=== PATIENT | male | born 1960 | race Caucasian/White ===

== ENCOUNTER 2016-07-02 19:39 | Inpatient (IN) | payer BC ==
[~2016-07-02] VITALS: Ht 175.3 cm; Wt 106.6 kg
[~2016-07-02 19:39] MED LIST: ALBU1AER9 INH; BUPR150T7 PO; IPRASOL4 INH; MOME200A INH; NICO4GUM PO
[2016-07-02] MEDS ORDERED: METHYLPREDNISOLONE 125 MG VIAL IV STA (20:04)
[2016-07-02] MEDS ORDERED: MAGNESIUM SULFATE 1GM / D5W 1 GM BAG IV STA (20:04)
[2016-07-02] MEDS ORDERED: SODIUM CHLORIDE 0.9% 500ML 500 ML IV STA (20:08)
[2016-07-02] MEDS ORDERED: LORAZEPAM 2 MG/ML 1 ML VIAL IV STA ×2 (20:08→22:16)
[2016-07-02] MEDS ORDERED: OPTIRAY 320 IV PRN (20:15)
[2016-07-02] MEDS ORDERED: ALBUT/IPRATROP 3MG/0.5MG NEB 3 ML VIAL INH ONE (20:15)
[2016-07-02 20:16] LABS: BASO % 0.2 %; BASO ABS # 0.02 K/uL (0-0.2); COMPLETE YES; EOS % 0.6 %; HEMATOCRIT 50.6 % (42-52); IG% 0.3 %; MEAN CELL VOLUME 91.8 fL (80-100); MEAN CORPUSCULAR HEMOGLOBIN 31.9 pg (25-34); MEAN CORPUSCULAR HGB CONC 34.8 g/dl (32-36); MEAN PLATELET VOLUME 9.8 fL (7.4-10.4); MONO % 7.7 %; NEUT % 64.2 %; PLATELET COUNT 284 K/uL (130-400); RED BLOOD COUNT 5.51 M/uL (4.7-6.1); WHITE BLOOD COUNT 10.01 K/uL (4.8-10.8)
[2016-07-02 20:29] VITALS: PULSE 95; O2SAT 93
[2016-07-02 20:32] VITALS: PULSE 93; O2SAT 93
--- NOTE | 2016-07-02 20:35 | EMERGENCY ROOM VISIT NOTE ---
History Report prepared by Jessica: Anna Farfan Under the Supervision of: Dr. Rl Willis M.D. First contact with patient: 19:59 Chief Complaint: RESPIRATORY PROBLEMS Stated Complaint: CANT BREATHE History of Present Illness The patient is a 55 year old male who presents to the Emergency Room with complaints of worsening respiratory problems that started a couple weeks ago. The patient has been having increased trouble breathing today. He states that he has end stage COPD. The patient adds that he has a lump in his chest that is getting bigger. The patient is on 2 L of nasal cannula oxygen at home. Source of History: patient Onset: a couple weeks ago Position: chest Quality: other (respiratory problems) Timing: worsening Note: lump in chest Review of Systems See HPI for pertinent positives & negatives. A total of 10 systems reviewed and were otherwise negative. Past Medical & Surgical Medical Problems: (1) Asthma (2) COPD (chronic obstructive pulmonary disease) (3) Emphysema of lung Family History Patient reports no known family medical history. Social History Smoking Status: Former Smoker Marital Status: Housing Status: lives with significant other Current/Historical Medications Scheduled Albuterol Hfa (Ventolin Hfa), 2-4 PUFFS INH Q6H Aspirin (Aspirin Ec), 81 MG PO DAILY Cholecalciferol (Vitamin D3), 1 CAP PO DAILY Ipratropium-Albuterol (Duoneb), 1 TREATMENT INH QID Mometasone Furoate-Formoterol (Dulera 200/5 Mcg), 2 PUFFS INH BID Nicotine (Nicoderm Cq 21MG Patch), 1 PATCH TD DAILY Prednisone (Prednisone), 5 MG PO Q2D Prednisone Tab (Prednisone), 10 MG PO Q2D Tiotropium [place] (Spiriva Handihaler), 1 CAP INH DAILY Allergies Coded Allergies: No Known Allergies (Verified Allergy, Unknown, 03/25/03) Physical Exam Vital Signs Date Time Temp Pulse Resp B/P Pulse Ox O2 Delivery O2 Flow Rate FiO2 07/02/16 21:14 94 22 123/95 100 BiPAP 8.0 07/02/16 20:32 93 93 2.0 07/02/16 20:29 95 18 93 BiPAP/CPAP 2.0 07/02/16 20:27 99 07/02/16 20:07 94 Nasal Cannula 5.0 07/02/16 20:07 94 Nasal Cannula 5.0 07/02/16 19:52 94 Nasal Cannula 5.0 07/02/16 19:48 36.9 106 22 93 Room Air Physical Exam GENERAL: Patient is a healthy-appearing well-nourished female. She is huffing and puffing on exam. She is very short of breath. HEAD: Normocephalic atraumatic EYES: Ocular movements intact pupils equal and react to light OROPHARYNX mucous membranes are moist no exudates present no erythema or edema present NECK: Supple no nuchal rigidity CHEST: Distant lung sounds LUNGS: Clear and equal to auscultation CARDIAC: Normal S1 and S2 ABDOMEN: Soft nontender no guarding BACK: No CVA tenderness EXTREMITIES: No pain upon palpation normal muscle strength in all groups no clubbing cyanosis or edema NEURO: Patient is following commands is answering questions appropriately. Alert and oriented x3 Cranial Nerves 2-12 grossly intact Medical Decision & Procedures ER Provider Diagnostic Interpretation: CT results as stated below per my review and radiologist interpretation: CT ANGIOGRAPHY OF THE CHEST, PULMONARY EMBOLUS PROTOCOL IMPRESSION: 1. No pulmonary emboli identified although segmental and subsegmental pulmonary arteries suboptimally assessed due to respiratory motion. 2. Severe emphysema. 3. No consolidation to suggest pneumonia. Mild bronchial wall thickening and minimal secretions within the bronchus intermedius. Electronically signed by: Marcelino Antunez M.D. 07/02/2016 9:45 PM Dictated Date/Time: 07/02/2016 9:37 PM Laboratory Results Test 07/02/16 20:00 07/02/16 20:15 Immature Granulocyte % (Auto) 0.3 % White Blood Count 10.01 K/uL (4.8-10.8) Red Blood Count 5.51 M/uL (4.7-6.1) Hemoglobin 17.6 g/dL (14.0-18.0) Hematocrit 50.6 % (42-52) Mean Corpuscular Volume 91.8 fL (80-100) Mean Corpuscular Hemoglobin 31.9 pg (25-34) Mean Corpuscular Hemoglobin Concent 34.8 g/dl (32-36) Platelet Count 284 K/uL (130-400) Mean Platelet Volume 9.8 fL (7.4-10.4) Neutrophils (%) (Auto) 64.2 % Lymphocytes (%) (Auto) 27.0 % Monocytes (%) (Auto) 7.7 % Eosinophils (%) (Auto) 0.6 % Basophils (%) (Auto) 0.2 % Neutrophils # (Auto) 6.43 K/uL (1.4-6.5) Lymphocytes # (Auto) 2.70 K/uL (1.2-3.4) Monocytes # (Auto) 0.77 K/uL (0.11-0.59) Eosinophils # (Auto) 0.06 K/uL (0-0.5) Basophils # (Auto) 0.02 K/uL (0-0.2) Immature Granulocyte # (Auto) 0.03 K/uL (0.00-0.02) Total Bilirubin 0.7 mg/dl (0.2-1) Aspartate Amino Transf (AST/SGOT) 22 U/L (15-37) Alanine Aminotransferase (ALT/SGPT) 38 U/L (12-78) Alkaline Phosphatase 71 U/L (45-117) Total Creatine Kinase 199 U/L (39-308) Creatine Kinase MB 4.8 ng/ml (0.5-3.6) Creatine Kinase MB Ratio 2.4 (0-3.0) Troponin I < 0.015 ng/ml (0-0.045) Total Protein 7.7 gm/dl (6.4-8.2) Albumin 4.1 gm/dl (3.4-5.0) Globulin 3.6 gm/dl (2.5-4.0) Albumin/Globulin Ratio 1.1 (0.9-2) Chemistry Specimen Hemolysis Influenza Type A (RT-PCR) Neg for Influ A (NEG) Influenza Type A Antigen Neg for Influ A (NEG) Influenza Type B Antigen Neg for Influ B (NEG) Influenza Type B (RT-PCR) Neg for Influ B (NEG) Labs reviewed by ED physician. Medications Administered Medications (Trade) Dose Ordered Sig/Ember Route Start Time Stop Time Status Last Admin Dose Admin Methylprednisolone Sodium Succinate (Solu-Medrol IV) 125 mg NOW STAT IV 07/02/16 20:04 07/02/16 20:08 DC 07/02/16 20:17 125 MG Albuterol/ Ipratropium (Duoneb) 12 ml ONE ONCE INH 07/02/16 20:15 07/02/16 20:16 DC 3/13/17 20:28 12 ML Magnesium Sulfate (Magnesium Sulfate) 2 gm NOW STAT IV 07/02/16 20:04 07/02/16 20:08 DC 07/02/16 20:18 2 GM Lorazepam 1 mg 1 mg NOW STAT IV 07/02/16 20:08 07/02/16 20:09 DC 07/02/16 20:17 1 MG Sodium Chloride (Nss 500ml) 500 ml @ 999 mls/hr Q31M STAT IV 07/02/16 20:08 07/02/16 20:38 DC 07/02/16 20:19 999 MLS/HR Lorazepam (Ativan Inj) 1 mg NOW STAT IV 07/02/16 22:16 07/02/16 22:17 DC 07/02/16 23:17 1 MG ECG Indication: SOB/dyspnea Rate (beats per minute): 102 Rhythm: sinus tachycardia Findings: no acute ischemic change, no ectopy ED Course 2000: Past medical records reviewed. The patient was evaluated in room C9. A complete history and physical examination was performed. 2004: Ordered Magnesium Sulfate 2 gm IV, Solu-Medrol 125 mg IV 2008: Ordered Sodium Chloride 500 ml @ 999 mls/hr IV, Ativan Inj 1 mg IV 2015: Ordered DuoNeb 12 ml INH 2209: Upon reexamination the patient is resting comfortably. I discussed results and treatment plan with the patient. He verbalizes agreement and understanding. The patient will be evaluated for further management. 6: Ordered Ativan Inj 1 mg IV 2221: I discussed the patient's case with Dr. Jasvir Arriaga, he has agreed to evaluate the patient for further management and care. Medical Decision Differential diagnosis: Etiologies such as infections, reactive airway disease, pneumonia, pneumothorax , COPD, CHF, cardiac ischemia, pulmonary embolism, musculoskeletal, gastrointestinal, as well as others were entertained. This is a 55-year-old male who presents emergency department acutely short of breath during a high volume high acuity.. The patient is irate that he has had to wait 12 minutes to be triage and then it further 8 minutes to see a physician. Due to the acute nature of his shortness of breath he was placed on BiPAP along with hour-long breathing treatment and Solu-Medrol and magnesium. The patient was sent for a CAT scan of the chest due to the nature of his shortness of breath. I did discuss the case with the hospitalist service who agreed to admit the patient. Patient was in agreement with the treatment plan. Consults Time Called: 2217 Consulting Physician: Dr. Jasvir Arriaga Returned Call: [id number] I discussed the patient's case with Dr. Jasvir Arriaga, he has agreed to evaluate the patient for further management and care. Impression Primary Impression: COPD exacerbation Critical Care I have personally spent greater than 90 minutes of critical care time in the direct management of this patient. This includes bedside care, interpretation of diagnostic studies, and testing, discussion with consultants, patient, and family members, and other required patient management activities. This 90 minutes is in excess of all separately billable procedures. Scribe Attestation The scribe's documentation has been prepared under my direction and personally reviewed by me in its entirety. I confirm that the note above accurately reflects all work, treatment, procedures, and medical decision making performed by me. Departure Information Dispostion Being Evaluated By Hospitalist Referrals Izabela Gonzalez D.O. (PCP) Patient Instructions My [facility]
[2016-07-02 20:37] LABS: ALB/GLOB RATIO 1.1 (0.9-2); ALKALINE PHOSPHATASE 71 U/L (45-117); ALT/SGPT 38 U/L (12-78); AST/SGOT 22 U/L (15-37); BLOOD UREA NITROGEN 18 mg/dl (7-18); BUN/CREATININE RATIO 18.2 (10-20); CARBON DIOXIDE 32 mmol/L (21-32); CHLORIDE 102 mmol/L (98-107); CKMB/CK RATIO 2.4 (0-3.0); GLUCOSE 105 mg/dl (70-99); POTASSIUM 4.5 mmol/L (3.5-5.1); SODIUM 141 mmol/L (136-145)
[2016-07-02] MEDS ORDERED: SPRIN/30 INH (21:45)
[2016-07-02] MEDS ORDERED: PRED10TA PO (21:45)
[2016-07-02] MEDS ORDERED: ASPI81TA28 PO (21:45)
[2016-07-02] MEDS ORDERED: CHOL2000 PO (21:45)
[2016-07-02] MEDS ORDERED: VNTHFA/IN INH (21:45)
[2016-07-02] MEDS ORDERED: NCDT21X TD (21:45)
[2016-07-02] MEDS ORDERED: PRED-301 PO (21:45)
--- NOTE | 2016-07-02 21:46 | DIAGNOSTIC IMAGING REPORT ---
CT ANGIOGRAPHY OF THE CHEST, PULMONARY EMBOLUS PROTOCOL CLINICAL HISTORY: Shortness of breath. COMPARISON STUDY: Chest radiograph November 30, 2014. TECHNIQUE: Following IV administration of 108 mL of Optiray-320, helical axial images of the chest were obtained utilizing the pulmonary embolus protocol. Maximal intensity projections and sagittal and coronal reformats were viewed on an independent 3D workstation. IV contrast was administered without complication. CT DOSE: 1087.26 mGy.cm FINDINGS: No pulmonary emboli are identified although the segmental and subsegmental vessels, particularly within the left lung, are suboptimally assessed due to respiratory motion. The size of the heart is normal. There is no evidence of thoracic aortic dissection. No enlarged thoracic lymph nodes are noted. The central airways are patent. There is minimal mucus or debris within the bronchus intermedius. Mild bronchial wall thickening is noted. There is no consolidation to suggest pneumonia. Linear and ground glass opacities suggest atelectasis. Severe emphysema is noted. There is no pneumothorax or pleural effusion. The bony thorax and upper abdomen are grossly unremarkable. The lungs are suboptimally assessed due to respiratory motion. IMPRESSION: 1. No pulmonary emboli identified although segmental and subsegmental pulmonary arteries suboptimally assessed due to respiratory motion. 2. Severe emphysema. 3. No consolidation to suggest pneumonia. Mild bronchial wall thickening and minimal secretions within the bronchus intermedius. Electronically signed by: Marcelino Antunez M.D. 07/02/2016 9:45 PM Dictated Date/Time: 07/02/2016 9:37 PM
[2016-07-02 22:43] LABS: INFLUENZA A PCR Neg for Influ A (NEG); INFLUENZA B PCR Neg for Influ B (NEG)
[2016-07-02] MEDS ORDERED: ONDANSETRON INJ 2 MG/ML 2 ML VIAL IV PRN (23:00)
[2016-07-02] MEDS ORDERED: ACETAMINOPHEN 325 MG TAB PO PRN (23:00)
[2016-07-02 23:58] LABS: URINE APPEARANCE CLEAR (CLEAR); URINE BILIRUBIN NEG (NEG); URINE COLOR YELLOW; URINE NITRITE NEG (NEG); URINE SPECIFIC GRAVITY > 1.045 (1.000-1.030); UROBILINOGEN NEG (NEG)
[2016-07-03] VITALS (14 sets, daily range): BP systolic 138–165; BP diastolic 78–114; PULSE 83–119; TEMP 36.5–36.9; O2SAT 94–97; Ht 175.3 cm; Wt 106.6 kg
[2016-07-03 00:04] LABS: MANUAL MICROSCOPIC REQUIRED? NO; REVIEW REQ? NO
--- NOTE | 2016-07-03 00:12 | HISTORY & PHYSICAL EXAMINATION ---
DATE OF ADMISSION: 07/02/2016 PRIMARY CARE PHYSICIAN: Dr. Gonzalez. CHIEF COMPLAINT: Increasing shortness of breath for the last 2 weeks. HISTORY OF PRESENT COMPLAINT: He is a 55-year-old obese male, with a significant past medical history including severe COPD with emphysema home oxygen-dependent, tobacco use disorder and obesity. He apparently has been complaining of shortness of breath for the last 2 weeks. He claims that his symptoms began in mid May while he was cleaning at the house, dust went into his lungs and since then his symptom has increased with increasing shortness of breath on minimal exertion. He denies to have any fevers, chills or rigors. He does have cough, but no phlegm and that has not increased. He hardly walks around 5 or 6 steps before he has to stop due to shortness of breath. He does not have any abdominal pain, nausea or vomiting. He does not have any leg swelling. No numbness or tingling involving extremities. In the Emergency Room, he was afebrile and he was noted to have a saturation of 70s on two liters on arrival and he was put on five liters oxygen and later on BiPAP that improved saturation. CAT scan of the chest did not show any pneumonia or any CHF, but it did show severe emphysema. From that point, he was admitted to the telemetry unit for continuation of care. PAST MEDICAL HISTORY: Significant for severe COPD with emphysema, has been under pulmonary rehab;Had been to transplant evaluation in [place] long ago and was told to reduce weight. Tobacco use disorder and obesity. PAST SURGICAL HISTORY: Partial colectomy, repair of recurrent incisional hernia and umbilical hernia repair at the age of 6. FAMILY HISTORY: Mother had high blood pressure and father does not have any significant medical problems. SOCIAL HISTORY: He is . He smoked about 0.25 packs per day for 20 years. He does not use any alcohol. He uses marijuana occasionally. He lives with his . His activity is limited due to shortness of breath. ALLERGIES: NKDA. MEDICATIONS: As an outpatient he has been taking prednisone 5 mg and 10 mg as directed, Ventolin HFA 2 to 4 puffs q. 6 hourly, aspirin 81 mg daily, vitamin D3 2000 units daily, DuoNeb 3 mL four times daily, Dulera 200/5 two puffs b.i.d., nicotine patch 21 mg one patch daily and Spiriva HandiHaler one cap inhalation daily. He uses oxygen as well; two liters per minute at night-time and whenever needed. REVIEW OF SYSTEMS: As in history of present complaint. PHYSICAL EXAMINATION: GENERAL: On examination in the Emergency Room, he was in moderate shortness of breath. He was able to finish short sentences. He did have use of accessory muscles during respiration. VITAL SIGNS: Temperature 36.9, pulse 106, blood pressure 123/95, saturation on two liters 70% and on five liters went up to 94%. HEENT: Unremarkable. NECK: Supple, no JVD, no bruits. CHEST: Decreased breath sounds all-over, increased anterior posterior diameter of the chest, decreased air flow all-over with very minimal wheezing. No crackles. HEART: S1, S2, regular. ABDOMEN: Distended, has ventral hernia, soft and nontender. Bowel sounds are present. EXTREMITIES: Trace edema bilaterally. MUSCULOSKELETAL: Did not show any acute arthritis involving any joints. CENTRAL NERVOUS SYSTEM: He was alert, awake and oriented x3. No focal, sensory or motor deficits appreciated. LABORATORY DATA: Noted today; white count was 10.01, H\T\H 17.6/50.6 and platelets were 284. Blood gas is pending. Sodium 141, potassium 4.5, chloride 102, carbon dioxide 32, BUN 18, creatinine 1.0, random glucose 105, calcium 9.0. Liver function tests unremarkable. CK, CK-MB unremarkable. Influenza A and B negative. CT scan of the chest reported as; no pulmonary emboli, severe emphysema, no consolidation, mild bronchial wall thickening and minimal secretions within the bronchus intermedius. EKG; was in sinus rhythm, rate of 102 per minute, normal axis and nonspecific ST-T wave changes. IMPRESSION AND PLAN: 1. Chronic obstructive pulmonary disease exacerbation with history of severe emphysema. No evidence of acute bronchitis and/or pneumonia at this time. He received 125 mg of Solu-Medrol, will continue with 60 mg t.i.d. Also, we will give nebulized bronchodilator. No infective process and Antibiotic was not started. He has had very low saturation on arrival, which improved with BiPAP and five liters nasal cannula. He does not have any significant retention of CO2 as per laboratory tests. We will get an ABG to evaluate blood gas status further. We will get a pulmonary consult while in the hospital and continue his nebulized bronchodilator and other medications. Had been to transplant evaluation in [place] long ago and was told to reduce weight.He quit smoking but continue to use Nicotine patch. 2. Tobacco use disorder, continue with nicotine patch.Quit smoking for a while. 3.May have Sleep Apnea.Never been tested and does not use any CPAP or BIPAP. 4. Gastrointestinal prophylaxis with Protonix. 5. Deep venous thrombosis prophylaxis with subQ heparin. 6. Code status; he will be a full code. On my clinical judgment, the beneficiary meets criteria as per CMS for 2 midnights stay in the hospital. SOFIE
[2016-07-03 00:51] LABS: ARTERIAL BLD GAS O2 SATURATION 97.6 % (90-95); ARTERIAL BLOOD GAS BASE EXCESS 3.3 mEq/L (-9-1.8); ARTERIAL BLOOD GAS HCO3 30 mmol/L (19-24); ARTERIAL BLOOD GAS PO2 101 mm/Hg (80-95); ARTERIAL BLOOD GAS pH 7.39 (7.35-7.45)
[2016-07-03 00:52] LABS: ALLEN TEST POS (POS); O2 ADMINISTRATION 3.5 L
[2016-07-03] MEDS: DULERA - ORDER AWAITING ACTION SCH ×2 (01:30→19:34)
[2016-07-03] MEDS: ALBUTEROL HFA 8 GM INHALER INH PRN ×2 (01:50→07:37)
[2016-07-03] MEDS ORDERED: NURSING VERBAL MED ORDER ONE (02:45)
[2016-07-03] MEDS: METHYLPREDNISOLONE IV 60 MG in SYRINGE 0 ML IV SCH ×3 (03:41→19:26)
[2016-07-03] MEDS ORDERED: ALBUTEROL 0.5% NEB SOLN 2.5 MG/0.5 ML VIAL INH PRN (04:00)
[2016-07-03] MEDS: LORAZEPAM 2 MG/ML 1 ML VIAL IV PRN ×5 (05:31→23:53)
[2016-07-03 05:40] LABS: HEMATOCRIT 47.4 % (42-52); MEAN CELL VOLUME 89.8 fL (80-100); MEAN CORPUSCULAR HEMOGLOBIN 31.1 pg (25-34); MEAN CORPUSCULAR HGB CONC 34.6 g/dl (32-36); MEAN PLATELET VOLUME 9.3 fL (7.4-10.4); PLATELET COUNT 248 K/uL (130-400); RED BLOOD COUNT 5.28 M/uL (4.7-6.1); WHITE BLOOD COUNT 6.76 K/uL (4.8-10.8)
[2016-07-03 05:53] LABS: PROTHROMBIN TIME (PATIENT) 10.5 SECONDS (9.0-12.0)
[2016-07-03] MEDS ORDERED: ALBUT/IPRATROP 3MG/0.5MG NEB 3 ML VIAL INH SCH ×2 (06:00→09:00)
[2016-07-03 06:12] LABS: BUN/CREATININE RATIO 18.8 (10-20); CALCIUM 8.9 mg/dl (8.5-10.1); CREATININE 0.99 mg/dl (0.60-1.40); MAGNESIUM 2.5 mg/dl (1.8-2.4); PHOSPHORUS 3.3 mg/dl (2.5-4.9); POTASSIUM 4.4 mmol/L (3.5-5.1)
[2016-07-03] MEDS: HEPARIN SOD 5000 UNIT/0.5 ML CARP SQ SCH ×3 (06:15→19:27)
[2016-07-03] MEDS: ALBUT/IPRATROP 3MG/0.5MG NEB 3 ML VIAL INH SCH ×2 (07:07→14:05)
[2016-07-03] MEDS ORDERED: LORAZEPAM 2 MG/ML 1 ML VIAL IV STA (07:41)
[2016-07-03] MEDS: NICOTINE 21 MG/24 HR TDSY TD SCH (08:47)
[2016-07-03] MEDS: CHOLECALCIFEROL 1000 INTER.UNIT TAB PO SCH (08:48)
[2016-07-03] MEDS: PANTOprazole SOD 40 MG TAB PO SCH (08:49)
[2016-07-03] MEDS: ASPIRIN 81 MG ECTAB PO SCH (08:49)
[2016-07-03] MEDS: ROFLUMILAST 500 MCG TAB PO SCH (08:56)
[2016-07-03] MEDS ORDERED: TIOTROPIUM BROMIDE 5 PUFF/90 MCG INH INH SCH (09:00)
[2016-07-03] MEDS ORDERED: DOXYCYCLINE IV 100 MG in DEXTROSE 5% 100ML 100 ML IV SCH (09:00)
--- NOTE | 2016-07-03 09:43 | Progress Note ---
Subjective Date of Service: Jul 03, 2016. Subjective Pt evaluation today including: conversation w/ patient, physical exam, chart review, lab review, review of studies, review of inpatient medication list Saw/examined the patient in room 233 Very anxious gentleman in the room who has increased work of breathing He is currently tripoding, standing up, does not want to sit down, states he can 't get air in He is currently on 4L of O2 via NC - cannot tolerate Bipap due to "too much pressure" Oxygen saturation is >90% He denies chest pain States he chronically uses prednisone, he is on chronic O2, uses Spiriva and Dulera as well as albuterol inhaler Was given an extra dose of ativan 0.5mg and he took a seat and started feeling a little bit better Oxygen titrated down to 3L - he is still saturating 94-95% Problem List Medical Problems: (1) COPD exacerbation Status: Acute Review of Systems Constitutional: No chills, No fever Respiratory: + cough, + dyspnea at rest, + dyspnea on exertion, + shortness of breath, + sputum, No hemoptysis, No wheezing Cardiac: No chest pain, No edema, No orthopnea, No palpitations Abdomen: No pain Psychiatric: + anxiety Medications Current Inpatient Medications Medications (Trade) Dose Ordered Sig/Ember Route Start Time Stop Time Status Last Admin Dose Admin Ioversol (Optiray 320) 125 ml UD PRN IV 07/02/16 20:15 07/06/16 20:14 Heparin Sodium (Porcine) (Heparin Sq 5000 Unit/0.5ml) 5,000 unit Q8 SQ 07/03/16 06:00 08/02/16 05:59 07/03/16 06:15 5,000 UNIT Acetaminophen (Tylenol Tab) 650 mg Q4H PRN PO 07/02/16 23:00 08/01/16 22:59 Ondansetron HCl (Zofran Inj) 4 mg Q6H PRN IV 07/02/16 23:00 08/01/16 22:59 Albuterol (Ventolin Hfa Inhaler) 2 puffs Q6H PRN INH 07/02/16 23:00 08/01/16 22:59 07/03/16 07:37 2 PUFFS Aspirin (Ecotrin Tab) 81 mg DAILY PO 07/03/16 09:00 08/02/16 08:59 07/03/16 08:49 81 MG Nicotine (Nicoderm Cq 21MG Patch) 1 patch DAILY TD 07/03/16 09:00 08/02/16 08:59 07/03/16 08:47 1 PATCH Tiotropium [place] (Spiriva Handihaler Inhaler) 1 puff DAILY INH 07/03/16 09:00 08/02/16 08:59 07/03/16 08:50 1 PUFF Cholecalciferol (Vitamin D Tab) 2,000 inter.unit DAILY PO 07/03/16 09:00 08/02/16 08:59 07/03/16 08:48 2,000 INTER.UNIT Miscellaneous Information 1 ea 1 ea QS N/A 07/03/16 00:30 08/02/16 00:29 Methylprednisolone Sodium Succinate/ Syringe (Solu-Medrol IV/ Syringe) 0.96 ml @ 1.5 mls/min Q8H IV 07/03/16 04:00 08/02/16 03:59 07/03/16 03:41 1.5 MLS/MIN Pantoprazole Sodium (Protonix Tab) 40 mg QAM PO 07/03/16 09:00 08/02/16 08:59 07/03/16 08:49 40 MG Albuterol/ Ipratropium (Duoneb) 3 ml Q6R INH 07/03/16 09:00 08/02/16 08:59 07/03/16 07:07 3 ML Albuterol Sulfate (Ventolin 0.5% 2.5MG/0.5ML Neb) 2.5 mg Q4H PRN INH 07/03/16 04:00 08/02/16 03:59 07/03/16 04:05 2.5 MG Lorazepam 0.5 mg 0.5 mg Q4H PRN IV 07/03/16 09:00 08/02/16 08:59 Doxycycline Hyclate/Dextrose (Vibramycin IV/ D5 100ml) 110 ml @ 50 mls/hr BID IV 07/03/16 09:00 07/10/16 08:59 07/03/16 08:57 50 MLS/HR Roflumilast 500 mcg 500 mcg DAILY PO 07/03/16 09:00 08/02/16 08:59 07/03/16 08:56 500 MCG Lorazepam/Syringe (Ativan Inj/ Syringe) 1 ml @ 1 mls/min Q4H PRN IV 07/03/16 08:45 08/02/16 08:44 Objective Vital Signs Date Time Temp Pulse Resp B/P Pulse Ox O2 Delivery O2 Flow Rate FiO2 07/03/16 08:09 36.5 101 20 153/98 96 2.0 07/03/16 07:57 Nasal Cannula 3.5 07/03/16 07:37 119 96 4.0 07/03/16 07:10 98 20 95 Nasal Cannula 2.0 07/03/16 04:03 98 20 95 Nasal Cannula 2.0 07/03/16 04:00 Nasal Cannula 3.5 07/03/16 03:49 36.7 88 22 138/79 95 Nasal Cannula 2.0 07/03/16 03:10 91 94 2.0 07/03/16 00:26 36.6 101 28 139/97 Nasal Cannula 4.0 96 07/02/16 23:59 Nasal Cannula 3.5 07/02/16 23:47 108 24 120/92 94 07/02/16 23:12 107 28 156/102 94 Nasal Cannula 4.0 07/02/16 21:14 94 22 123/95 100 BiPAP 8.0 07/02/16 20:32 93 93 2.0 07/02/16 20:29 95 18 93 BiPAP/CPAP 2.0 07/02/16 20:27 99 07/02/16 20:07 94 Nasal Cannula 5.0 07/02/16 20:07 94 Nasal Cannula 5.0 07/02/16 19:52 94 Nasal Cannula 5.0 07/02/16 19:48 36.9 106 22 93 Room Air Physical Exam General Appearance: + moderate distress, + severe distress (moderate to severe respiratory distress as well as anxiety/anxiousness), + obese Respiratory/Chest: + respiratory distress, + decreased breath sounds ( diminished breath sounds; very little air movement; increased work of breathing , increase accessory muscle use), + accessory muscle use Cardiovascular: no murmur, + tachycardia Abdomen: soft, + hernia (ventral hernia, reducible; nontender) Extremities: normal inspection, no pedal edema Neurologic/Psychiatric: alert, + pertinent finding (+anxiousness secondary to shortness of breath) Laboratory Results Last 24 Hours Test 07/02/16 20:00 07/02/16 20:15 07/02/16 23:40 07/03/16 00:40 White Blood Count 10.01 K/uL Red Blood Count 5.51 M/uL Hemoglobin 17.6 g/dL Hematocrit 50.6 % Mean Corpuscular Volume 91.8 fL Mean Corpuscular Hemoglobin 31.9 pg Mean Corpuscular Hemoglobin Concent 34.8 g/dl Platelet Count 284 K/uL Mean Platelet Volume 9.8 fL Neutrophils (%) (Auto) 64.2 % Lymphocytes (%) (Auto) 27.0 % Monocytes (%) (Auto) 7.7 % Eosinophils (%) (Auto) 0.6 % Basophils (%) (Auto) 0.2 % Neutrophils # (Auto) 6.43 K/uL Lymphocytes # (Auto) 2.70 K/uL Monocytes # (Auto) 0.77 K/uL Eosinophils # (Auto) 0.06 K/uL Basophils # (Auto) 0.02 K/uL RDW Standard Deviation 44.1 fL RDW Coefficient of Variation 13.1 % Immature Granulocyte % (Auto) 0.3 % Immature Granulocyte # (Auto) 0.03 K/uL Sodium Level 141 mmol/L Potassium Level 4.5 mmol/L Chloride Level 102 mmol/L Carbon Dioxide Level 32 mmol/L Anion Gap 7.0 mmol/L Blood Urea Nitrogen 18 mg/dl Creatinine 1.00 mg/dl Est Creatinine Clear Calc Drug Dose 108.0 ml/min Estimated GFR () 98.5 Estimated GFR (Non- 84.9 BUN/Creatinine Ratio 18.2 Random Glucose 105 mg/dl Calcium Level 9.0 mg/dl Total Bilirubin 0.7 mg/dl Aspartate Amino Transf (AST/SGOT) 22 U/L Alanine Aminotransferase (ALT/SGPT) 38 U/L Alkaline Phosphatase 71 U/L Total Creatine Kinase 199 U/L Creatine Kinase MB 4.8 ng/ml Creatine Kinase MB Ratio 2.4 Troponin I < 0.015 ng/ml Total Protein 7.7 gm/dl Albumin 4.1 gm/dl Globulin 3.6 gm/dl Albumin/Globulin Ratio 1.1 Chemistry Specimen Hemolysis Influenza Type A (RT-PCR) Neg for Influ A Influenza Type A Antigen Neg for Influ A Influenza Type B Antigen Neg for Influ B Influenza Type B (RT-PCR) Neg for Influ B Urine Color YELLOW Urine Appearance CLEAR Urine pH 5.0 Urine Specific [place] > 1.045 Urine Protein NEG Urine Glucose (UA) NEG Urine Ketones NEG Urine Occult Blood NEG Urine Nitrite NEG Urine Bilirubin NEG Urine Urobilinogen NEG Urine Leukocyte Esterase NEG Arterial Blood pH 7.39 Arterial Blood Partial Pressure CO2 50 mmHg Arterial Blood Partial Pressure O2 101 mm/Hg Arterial Blood HCO3 30 mmol/L Arterial Blood Oxygen Saturation 97.6 % Arterial Blood Base Excess 3.3 mEq/L Arterial Blood Gas Delivery 3.5 L Herman Test POS Test 07/03/16 05:26 White Blood Count 6.76 K/uL Red Blood Count 5.28 M/uL Hemoglobin 16.4 g/dL Hematocrit 47.4 % Mean Corpuscular Volume 89.8 fL Mean Corpuscular Hemoglobin 31.1 pg Mean Corpuscular Hemoglobin Concent 34.6 g/dl RDW Standard Deviation 42.5 fL RDW Coefficient of Variation 13.0 % Platelet Count 248 K/uL Mean Platelet Volume 9.3 fL Prothrombin Time 10.5 SECONDS Prothromb Time International Ratio 1.0 Activated Partial Thromboplast Time 24.7 SECONDS Partial Thromboplastin Ratio 1.0 Sodium Level 140 mmol/L Potassium Level 4.4 mmol/L Chloride Level 101 mmol/L Carbon Dioxide Level 33 mmol/L Anion Gap 6.0 mmol/L Blood Urea Nitrogen 19 mg/dl Creatinine 0.99 mg/dl Est Creatinine Clear Calc Drug Dose 109.0 ml/min Estimated GFR () 99.7 Estimated GFR (Non- 86.0 BUN/Creatinine Ratio 18.8 Random Glucose 161 mg/dl Calcium Level 8.9 mg/dl Phosphorus Level 3.3 mg/dl Magnesium Level 2.5 mg/dl Assessment and Plan This is a 55 year old male with severe COPD presents with COPD exacerbation Acute COPD exacerbation 07/03 patient with very severe COPD; predicted FEV1 of 22% Uses continuous O2 at home at 2L with increases in requirements with activity Uses Dulera + Spiriva On chronic prednisone, alternating between 10mg and 5mg While in-patient, he has been started on solu-medrol 60mg q8 IV Ativan for anxiety as needed nebulizers around the clock and as needed Patient is not tolerating Bipap Added daliresp daily May need to switch Dulera to newer LABA will consider starting on chronic macrolide would appreciate pulmonary input - consult placed DVT ppx subq heparin FULL CODE
[2016-07-03] MEDS ORDERED: LEVALBUTEROL/IPRATROPIUM NEB INH SCH (15:00)
--- NOTE | 2016-07-03 15:57 | Pulmonary Consultation ---
History General Date of Service: Jul 03, 2016. Stated Complaint: Copd Exacerbation HPI The patient is a 55 year old male who presents to [facility] with complaints of Copd Exacerbation. The patient's primary care provider is Izabela Gonzalez D.O.. 55-year-old male with very severe COPD, FEV1 22% predicted, admitted for COPD exacerbation. Patient has been experiencing increasing dyspnea on exertion and at the time of admission at rest over the last 7-10 days with notable change in the weather. Since the time of his admission the patient continues to have severe dyspnea at rest and notes he is unable to lie flat by expectorated sputum. Denies: Fever, chills, productive cough, pleurisy, cardiac chest pain, weight loss Workup AB.39/50/101/30 3.5 L via nasal cannula WBC:10K-7K INR: 1.0 Influenza: AG and PCR testing A&B negative CTA thorax: No pulmonary emboli identified, and notable motion artifact, diffuse emphysema Bronchiectasis with scarring appreciated in the lingual LB5 Pulmonary function test 06/14/2015 Pre Post FEV1/FVC: 34 33 FEV1: 0.82/22% 0.86/23% FVC: 2.42/51% 2.64/56% significant change T.52/126% SVC: 4.23/89% RV: 4.29/210% DLCO: 36% DLCO/VA: 53% RAW: 453% GAW: 15% 6 min walk SixMinuteWalkTest(6MWT)[id number] PnyrCccrqmq745Nboks 11/16/2014 AatbGtkokot226Ljg VlustCylrfpd7Wdztu Baseline O2 needs: Initially, no supplemental oxygen was needed. XemzfXwpgsuh33Jtq LlevoQmamcof72Ispqi TetxhVrvkwlg77Fvt MmvmeKfovqqt65Vokuo Baseline VS and James scale: HR: 78,~RR: 24 ,~O2 sat: 95%,~James scale score: 9,~ BP: 134/92 CsuclRhkzcee51Ivn LgexjRxgrsvj16Goeaq StilrNpmmegn52Bew JpjhkDxgxpvo63Quhur HggonNggvekr31Vyo BhblqRwpfdxh48Ygnvv KfgtdYsyqgen15Ure DougpKmcdbwm21Jubuv NkcirInrjbqo69Dsw HhnbbCqgvcxv64Dhucn BlszcLcmmuwa45Ana MufxyCbophmk37Qsmsy TlgefIlqmwrh28Xph JihnfXflsnfm97Copiq 1 min VS and James Scale: HR: 85,~O2 sat: 92% VsbniMsshbso40Onc LsqrrKznjrvl11Lehzw 2 min VS and James Scale: HR: 91,~O2 sat: 93% WtmsjTbjvxsr11Lvz IjcvwZhfjwvv32Oqslz 3 min VS and James Scale: HR: 93,~O2 sat: 91% XvzewIxhpxvu47Jbu CtewrJvhsjxr42Soouh 4 min VS and James Scale: HR: 100,~O2 sat: 88% JoxsrAgvkcgm16Rgw DmljeNjtqbhc37Toepu 5 min VS and James Scale: HR: 88,~O2 sat: 89% UwpqzMjnghcm86Sfp SsjsvJyncxfe02Odtam 6 min VS and James Scale: HR: 87,~O2 sat: 86% LobgaOkepuap37Yye OmypcKumhgqn00Xozqm Pre-Intervention: the patient walked a total of 1200 feet/366meters Historian: patient, family, EMS, other ([facility] pulmonary transplant team) Review of Systems Constitutional: reports: malaise, weakness Eyes: reports: no symptoms ENT: reports: no symptoms Cardiovascular: reports: no symptoms Respiratory: reports: CARRILLO, shortness of breath Gastrointestinal: reports: no symptoms Genitourinary - Male: reports: no symptoms Musculoskeletal: reports: no symptoms Integumentary: reports: no symptoms Neurologic: reports: no symptoms Psychiatric: reports: no symptoms Endocrine: no symptoms Hematologic / Lymphatic: no symptoms Allergic / Immunologic: no symptoms Past Medical History Past Medical History: 1. Asthma 2. COPD 3. Hypersomnia 4. Postnasal drip 5. Sleep apnea, unspecified 6. Diverticulitis 7. Perirectal abscess: Escherichia coli/Peptostreptococcus Past Surgical History: 1. Hernia Repair 2. Partial Colectomy Family History Patient reports no known family medical history. Father: CAD Unknown: asthma Social History Milady: Tobacco: Patient and [facility] patient discontinued smoking 6 months prior Marijuana: Ingestible marijuana Hx Tobacco Use In Past Year?: No Smoking Status: Unknown if Ever Smoked Marital status: Immunizations History of Influenza Vaccine: Yes History of Tetanus Vaccine?: Yes Tetanus Immunization Date: August 26, 2002 History of Pneumococcal: Yes History of Hepatitis B Vaccine: Yes History of MDRO History of MDRO: No Allergies Coded Allergies: No Known Allergies (Verified Allergy, Unknown, 03/25/03) Current Medications Reported Home Medications Medications Dose Route/Sig Max Daily Dose Days Date Category Dose Instructions Ventolin Hfa (Albuterol) 200 Puffs/42137 Mcg Aers 2-4 Puffs INH Q6H 07/02/16 Reported Spiriva Handihaler (Tiotropium [place]) 30 Puff/540 Mcg Aerp 1 Cap INH DAILY 07/02/16 Reported Prednisone 5 Mg Tab 5 Mg PO Q2D 07/02/16 Reported EVEN NUMBER DAYS OF THE MONTH Prednisone 10 Mg Tab 10 Mg PO Q2D 07/02/16 Reported ODD NUMBER DAYS OF THE MONTH Vitamin D3 (Cholecalciferol) 2,000 Unit Cap 1 Cap PO DAILY 07/02/16 Reported Aspirin Ec (Aspirin) 81 Mg Tab 81 Mg PO DAILY 07/02/16 Reported Nicoderm Cq 21MG Patch (Nicotine) 1 Patch Tdsy 1 Patch TD DAILY 07/02/16 Reported Duoneb (Ipratropium-Albuterol) 3 Ml Nebu 1 Treatment INH QID 11/30/14 Reported Dulera 200/5 Mcg (Mometasone Furoate-Formoterol) 1 Aer Aer 2 Puffs INH BID 11/30/14 Reported Physical Physical Exam Vital Signs: Date Time Temp Pulse Resp B/P Pulse Ox O2 Delivery O2 Flow Rate FiO2 07/03/16 15:17 Nasal Cannula 4.0 07/03/16 12:00 Nasal Cannula 4.0 07/03/16 11:12 36.9 91 20 159/105 97 3.0 156/114 07/03/16 08:09 36.5 101 20 153/98 96 2.0 07/03/16 07:57 Nasal Cannula 3.5 07/03/16 07:37 119 96 4.0 07/03/16 07:10 98 20 95 Nasal Cannula 2.0 07/03/16 04:03 98 20 95 Nasal Cannula 2.0 07/03/16 04:00 Nasal Cannula 3.5 07/03/16 03:49 36.7 88 22 138/79 95 Nasal Cannula 2.0 07/03/16 03:10 91 94 2.0 07/03/16 00:26 36.6 101 28 139/97 Nasal Cannula 4.0 96 07/02/16 23:59 Nasal Cannula 3.5 07/02/16 23:47 108 24 120/92 94 07/02/16 23:12 107 28 156/102 94 Nasal Cannula 4.0 07/02/16 21:14 94 22 123/95 100 BiPAP 8.0 07/02/16 20:32 93 93 2.0 07/02/16 20:29 95 18 93 BiPAP/CPAP 2.0 07/02/16 20:27 99 07/02/16 20:07 94 Nasal Cannula 5.0 07/02/16 20:07 94 Nasal Cannula 5.0 07/02/16 19:52 94 Nasal Cannula 5.0 07/02/16 19:48 36.9 106 22 93 Room Air General Appearance: moderate distress, obese Head: NORMOCEPHALIC, ATRAUMATIC Eyes: PERRLA, NO DISCHARGE, EOMI, SCLERAE NORMAL ENT: NORMAL EAR EXAM, NORMAL NASAL EXAM, other (no signs of dental caries) Neck: NORMAL RANGE OF MOTION, NO TENDERNESS, TRACHEA MIDLINE, NO STRIDOR Respiratory: other (expiratory wheezing decreased breath sounds globally) Cardiovasular: other (tachycardic S1-S2 distant heart sounds unable to auscultate for murmurs rubs or gallops) Abdomen: NON TENDER, NORMAL BOWEL SOUNDS, NO REBOUND, NO MASSES, hernia, other Genitourinary - Male: EXTERNAL GENITALIA NORMAL Back: NORMAL INSPECTION, NO MIDLINE TENDERNESS, NO CVA TENDERNESS, NO PARAVERTEBRAL TTP Upper Extremities: NO EDEMA, NO DEFORMITY, NORMAL ROM Lower Extremities: NO EDEMA, NO DEFORMITY, NORMAL ROM Pulses: carotid (R) (2+), carotid (L) (2+), posterior tibial (R), posterior tibial (L) (2+) Neuro: ALERT, ORIENTED x 3, NORMAL MOTOR EXAM, NORMAL SENSATION, NORMAL CEREBELLAR EXAM, NORMAL SPEECH Reflexes: biceps (R) (2+), bicpes (L) (2+), achilles (R) (2+), achilles (L) (2+ ) Babinski Testing: right (downgoing), left (downgoing) Psychiatric: NORMAL AFFECT, NO SUICIDAL IDEATION Diagnostics Labs Results Past 24 Hours Test 07/02/16 20:00 07/02/16 20:15 07/02/16 23:40 07/03/16 00:40 Range/Units White Blood Count 10.01 4.8-10.8 K/uL Red Blood Count 5.51 4.7-6.1 M/uL Hemoglobin 17.6 14.0-18.0 g/dL Hematocrit 50.6 42-52 % Mean Corpuscular Volume 91.8 80-100 fL Mean Corpuscular Hemoglobin 31.9 25-34 pg Mean Corpuscular Hemoglobin Concent 34.8 32-36 g/dl Platelet Count 284 130-400 K/uL Mean Platelet Volume 9.8 7.4-10.4 fL Neutrophils (%) (Auto) 64.2 % Lymphocytes (%) (Auto) 27.0 % Monocytes (%) (Auto) 7.7 % Eosinophils (%) (Auto) 0.6 % Basophils (%) (Auto) 0.2 % Neutrophils # (Auto) 6.43 1.4-6.5 K/uL Lymphocytes # (Auto) 2.70 1.2-3.4 K/uL Monocytes # (Auto) 0.77 0.11-0.59 K/uL Eosinophils # (Auto) 0.06 0-0.5 K/uL Basophils # (Auto) 0.02 0-0.2 K/uL RDW Standard Deviation 44.1 36.4-46.3 fL RDW Coefficient of Variation 13.1 11.5-14.5 % Immature Granulocyte % (Auto) 0.3 % Immature Granulocyte # (Auto) 0.03 0.00-0.02 K/uL Sodium Level 141 136-145 mmol/L Potassium Level 4.5 3.5-5.1 mmol/L Chloride Level 102 98-107 mmol/L Carbon Dioxide Level 32 21-32 mmol/L Anion Gap 7.0 3-11 mmol/L Blood Urea Nitrogen 18 7-18 mg/dl Creatinine 1.00 0.60-1.40 mg/dl Est Creatinine Clear Calc Drug Dose 108.0 ml/min Estimated GFR () 98.5 Estimated GFR (Non- 84.9 BUN/Creatinine Ratio 18.2 10-20 Random Glucose 105 70-99 mg/dl Calcium Level 9.0 8.5-10.1 mg/dl Total Bilirubin 0.7 0.2-1 mg/dl Aspartate Amino Transf (AST/SGOT) 22 15-37 U/L Alanine Aminotransferase (ALT/SGPT) 38 12-78 U/L Alkaline Phosphatase 71 45-117 U/L Total Creatine Kinase 199 39-308 U/L Creatine Kinase MB 4.8 0.5-3.6 ng/ml Creatine Kinase MB Ratio 2.4 0-3.0 Troponin I < 0.015 0-0.045 ng/ml Total Protein 7.7 6.4-8.2 gm/dl Albumin 4.1 3.4-5.0 gm/dl Globulin 3.6 2.5-4.0 gm/dl Albumin/Globulin Ratio 1.1 0.9-2 Chemistry Specimen Hemolysis Influenza Type A (RT-PCR) Neg for Influ A NEG Influenza Type A Antigen Neg for Influ A NEG Influenza Type B Antigen Neg for Influ B NEG Influenza Type B (RT-PCR) Neg for Influ B NEG Urine Color YELLOW Urine Appearance CLEAR CLEAR Urine pH 5.0 4.5-7.5 Urine Specific [place] > 1.045 1.000-1.030 Urine Protein NEG NEG Urine Glucose (UA) NEG NEG Urine Ketones NEG NEG Urine Occult Blood NEG NEG Urine Nitrite NEG NEG Urine Bilirubin NEG NEG Urine Urobilinogen NEG NEG Urine Leukocyte Esterase NEG NEG Arterial Blood pH 7.39 7.35-7.45 Arterial Blood Partial Pressure CO2 50 35-46 mmHg Arterial Blood Partial Pressure O2 101 80-95 mm/Hg Arterial Blood HCO3 30 19-24 mmol/L Arterial Blood Oxygen Saturation 97.6 90-95 % Arterial Blood Base Excess 3.3 -9-1.8 mEq/L Arterial Blood Gas Delivery 3.5 L Herman Test POS POS Test 07/03/16 05:26 Range/Units White Blood Count 6.76 4.8-10.8 K/uL Red Blood Count 5.28 4.7-6.1 M/uL Hemoglobin 16.4 14.0-18.0 g/dL Hematocrit 47.4 42-52 % Mean Corpuscular Volume 89.8 80-100 fL Mean Corpuscular Hemoglobin 31.1 25-34 pg Mean Corpuscular Hemoglobin Concent 34.6 32-36 g/dl RDW Standard Deviation 42.5 36.4-46.3 fL RDW Coefficient of Variation 13.0 11.5-14.5 % Platelet Count 248 130-400 K/uL Mean Platelet Volume 9.3 7.4-10.4 fL Prothrombin Time 10.5 9.0-12.0 SECONDS Prothromb Time International Ratio 1.0 0.9-1.1 Activated Partial Thromboplast Time 24.7 21.0-31.0 SECONDS Partial Thromboplastin Ratio 1.0 Sodium Level 140 136-145 mmol/L Potassium Level 4.4 3.5-5.1 mmol/L Chloride Level 101 98-107 mmol/L Carbon Dioxide Level 33 21-32 mmol/L Anion Gap 6.0 3-11 mmol/L Blood Urea Nitrogen 19 7-18 mg/dl Creatinine 0.99 0.60-1.40 mg/dl Est Creatinine Clear Calc Drug Dose 109.0 ml/min Estimated GFR () 99.7 Estimated GFR (Non- 86.0 BUN/Creatinine Ratio 18.8 10-20 Random Glucose 161 70-99 mg/dl Calcium Level 8.9 8.5-10.1 mg/dl Phosphorus Level 3.3 2.5-4.9 mg/dl Magnesium Level 2.5 1.8-2.4 mg/dl Hepatitis C Antibody Screen NEG NEG Diagnostic Radiology CTA thorax: No pulmonary emboli identified, and notable motion artifact, diffuse emphysema Bronchiectasis with scarring appreciated in the lingual LB5 EKG Sinus tachycardia Impression Assessment and Plan 55-year-old male with very severe COPD having exacerbation: #1 COPD Exacerbation: At this time I will place the patient on Xopenex/Atrovent nebulizers every 6 hours and then continue Xopenex every 2 hours when necessary dyspnea. Also continue patient's current Solu-Medrol dosing. As the patient has COPD exacerbation we'll treat as if he has pneumonia and/or bronchiectasis at this time and initiate levofloxacin 750 mg IV every day discontinue his current doxycycline. I've had a long discussion with the patient and his about the importance of BiPAP. I've also spoke to the respiratory therapist and we will reinitiate BiPAP therapy. Also continue oxygen therapy with maintaining SaO2 between 88 and 92%. #2 Chronic COPD: When patient is able to perform a proper inhaler technique will reinitiate: Inhaled steroids, LAMA, LABA and continue Daliresp. We'll also consider initiating azithromycin daily and/or 3 times a day. And continuing oxygen support. #3 Pulmonary Transplant: I have spoken to the [facility] pulmonary transplant team. The patient has not been placed on the pulmonary transplant list at this time. He is been evaluated by Dr. Marylin Hughes and was informed he has multiple goals to achieve: BMI: < 35 Pulmonary rehabilitation Medication compliance Attempt to wean off prednisone Attempt to wean off nicotine patch Smoking cessation program No marijuana either inhaled and/or orally consumed The patient was initially evaluated by the transplant team in August 2015 but has failed to follow-up with the team. (Dr. Otoniel HUGHES) Margarita Pastor after hours
[2016-07-03] MEDS ORDERED: LEVAQUIN 750MG / 150ML D5W IV ONE (16:00)
[2016-07-03] MEDS: LORAZEPAM INJ 0.5 MG in SYRINGE 0.75 ML IV PRN (16:13)
[2016-07-03] MEDS: LEVOFLOXACIN 750MG / D5W IV SCH (16:32)
[2016-07-03] MEDS: LEVALBUTEROL 1.25MG/0.5ML NEB INH SCH (21:00)
[2016-07-03] MEDS: IPRATROPIUM BROMIDE NEB SOLN 0.02% 2.5 ML VIAL INH SCH (21:00)
[2016-07-04] VITALS (16 sets, daily range): BP systolic 142–164; BP diastolic 81–105; PULSE 18–105; TEMP 36.2–37; O2SAT 91–97
[2016-07-04] MEDS: LEVALBUTEROL 1.25MG/3ML NEB INH PRN ×2 (00:04→23:19)
[2016-07-04] MEDS: IPRATROPIUM BROMIDE NEB SOLN 0.02% 2.5 ML VIAL INH SCH ×4 (01:47→19:05)
[2016-07-04] MEDS: LEVALBUTEROL 1.25MG/0.5ML NEB INH SCH ×4 (01:47→19:05)
[2016-07-04] MEDS: METHYLPREDNISOLONE IV 60 MG in SYRINGE 0 ML IV SCH ×3 (04:46→19:30)
[2016-07-04] MEDS: HEPARIN SOD 5000 UNIT/0.5 ML CARP SQ SCH ×3 (05:33→21:58)
[2016-07-04 05:42] LABS: HEMATOCRIT 47.2 % (42-52); MEAN CELL VOLUME 92.5 fL (80-100); MEAN CORPUSCULAR HGB CONC 33.5 g/dl (32-36); MEAN PLATELET VOLUME 9.8 fL (7.4-10.4); PLATELET COUNT 255 K/uL (130-400); WHITE BLOOD COUNT 12.12 K/uL (4.8-10.8)
[2016-07-04 06:09] LABS: BUN/CREATININE RATIO 27.2 (10-20); CALCIUM 8.8 mg/dl (8.5-10.1); CREATININE 0.97 mg/dl (0.60-1.40); POTASSIUM 4.5 mmol/L (3.5-5.1)
--- NOTE | 2016-07-04 06:18 | Clinical Documentation Query ---
GEMINI Sherman : CLINICAL DOCUMENTATION QUERY Patient is a 55 year old male admitted for the evaluation and treatment of a COPD exacerbation. He is noted to be on 2 Liters/minute of oxygen via nasal cannula at home. ER physical assessment noted "he is huffing and puffing on exam. He is very short of breath". He was noted to have a saturation of 70's on two liters on arrival and he was put on five liters oxygen and later on BiPAP. H&P noted "he was in moderate shortness of breath" and "he did have use of accessory muscles during respiration". In your clinical opinion is this patient being managed for: ( X ) Acute on chronic hypoxic respiratory failure ( ) Other explanation of clinical findings (Please Explain) ( ) Unable to determine (Please Define) ( ) Need to Discuss ( ) Not Agree The medical record reflects the following clinical findings, treatment, and risk factors. Clinical Indicators: As above Treatment: Supplemental O2, pulmonary consultation, inhalers, steroids, anxiolytics Risk Factors: COPD, anxiety, smoking history Please clarify and document your clinical opinion in the progress notes and discharge summary. Terms such as "probable", "suspected", "likely", "questionable", "possible", or "still to be ruled out" are acceptable. IF IN AGREEMENT, YOU MUST DOCUMENT ABOVE DIAGNOSTIC STATEMENT IN DAILY PROGRESS NOTES AND DISCHARGE SUMMARY. This document is not part of the patient's record. Thank You, Rashad Robles, WENCESLAO [phone]
[2016-07-04] MEDS: ASPIRIN 81 MG ECTAB PO SCH (07:52)
[2016-07-04] MEDS: ROFLUMILAST 500 MCG TAB PO SCH (07:53)
[2016-07-04] MEDS: CHOLECALCIFEROL 1000 INTER.UNIT TAB PO SCH (07:53)
[2016-07-04] MEDS: DULERA - ORDER AWAITING ACTION SCH (07:53)
[2016-07-04] MEDS: PANTOprazole SOD 40 MG TAB PO SCH (07:53)
[2016-07-04] MEDS: NICOTINE 21 MG/24 HR TDSY TD SCH (07:53)
[2016-07-04] MEDS: MOMETASONE FUROATE-FORMOTEROL (DULERA) 200mcg/5mcg per inh INH SCH ×2 (08:51→19:30)
--- NOTE | 2016-07-04 12:56 | Progress Note ---
Subjective Date of Service: Jul 04, 2016. Subjective Pt evaluation today including: conversation w/ patient, physical exam, chart review, lab review, review of studies, conversation w/ remediation bioanalytics consultant, review of inpatient medication list Saw/examined the patient in room 233 increased respiratory rate during exam +wheezing more relaxed today, currently on 3L O2 via NC Problem List Medical Problems: (1) COPD exacerbation Status: Acute Review of Systems Constitutional: No chills, No fever Respiratory: + cough, + dyspnea at rest, + dyspnea on exertion, + shortness of breath, + sputum, + wheezing, No hemoptysis Cardiac: No chest pain, No edema, No palpitations Abdomen: No diarrhea, No nausea, No pain, No vomiting Male : + incontinence, No dysuria, No urinary frequency Heme: No abnormal bleeding/bruising Medications Current Inpatient Medications Medications (Trade) Dose Ordered Sig/Ember Route Start Time Stop Time Status Last Admin Dose Admin Ioversol (Optiray 320) 125 ml UD PRN IV 07/02/16 20:15 07/06/16 20:14 Heparin Sodium (Porcine) (Heparin Sq 5000 Unit/0.5ml) 5,000 unit Q8 SQ 07/03/16 06:00 08/02/16 05:59 07/04/16 05:33 5,000 UNIT Acetaminophen (Tylenol Tab) 650 mg Q4H PRN PO 07/02/16 23:00 08/01/16 22:59 Ondansetron HCl (Zofran Inj) 4 mg Q6H PRN IV 07/02/16 23:00 08/01/16 22:59 Aspirin (Ecotrin Tab) 81 mg DAILY PO 07/03/16 09:00 08/02/16 08:59 07/04/16 07:52 81 MG Nicotine (Nicoderm Cq 21MG Patch) 1 patch DAILY TD 07/03/16 09:00 08/02/16 08:59 07/04/16 07:53 1 PATCH Cholecalciferol 2000 inter.unit 2,000 inter.unit DAILY PO 07/03/16 09:00 08/02/16 08:59 07/04/16 07:53 2,000 INTER.UNIT Methylprednisolone Sodium Succinate/ Syringe (Solu-Medrol IV/ Syringe) 0.96 ml @ 1.5 mls/min Q8H IV 07/03/16 04:00 08/02/16 03:59 07/04/16 12:32 1.5 MLS/MIN Pantoprazole Sodium (Protonix Tab) 40 mg QAM PO 07/03/16 09:00 08/02/16 08:59 07/04/16 07:53 40 MG Lorazepam (Ativan Inj) 0.5 mg Q4H PRN IV 07/03/16 09:00 08/02/16 08:59 07/03/16 23:53 0.5 MG Roflumilast 500 mcg 500 mcg DAILY PO 07/03/16 09:00 08/02/16 08:59 07/04/16 07:53 500 MCG Lorazepam/Syringe (Ativan Inj/ Syringe) 1 ml @ 1 mls/min Q4H PRN IV 07/03/16 08:45 08/02/16 08:44 07/03/16 16:13 1 MLS/MIN Levalbuterol (Xopenex 1.25MG/ 3ML Neb) 1.25 mg Q2R PRN INH 07/03/16 15:00 08/02/16 14:59 07/04/16 00:04 1.25 MG Ipratropium [place] (Atrovent 0.02% 0.5MG/2.5ML Neb) 0.5 mg Q6R INH 07/03/16 21:00 08/02/16 20:59 07/04/16 07:20 0.5 MG Levalbuterol 1.25 mg 1.25 mg Q6R INH 07/03/16 21:00 08/02/16 20:59 07/04/16 07:20 1.25 MG Levofloxacin/Prmx (Levaquin / D5W/ Premixed D5W) 150 ml @ 100 mls/hr DAILY@1600 IV 07/03/16 16:30 07/10/16 16:29 07/03/16 16:32 100 MLS/HR Mometasone Furoate/ Formoterol Fumar (Dulera) 2 ea BID INH 07/04/16 09:00 08/03/16 08:59 07/04/16 08:51 2 EA Objective Vital Signs Date Time Temp Pulse Resp B/P Pulse Ox O2 Delivery O2 Flow Rate FiO2 07/04/16 12:00 Nasal Cannula 3.5 07/04/16 11:02 36.4 79 18 157/89 97 BiPAP 07/04/16 08:00 Nasal Cannula 3.5 07/04/16 07:38 36.2 104 18 154/98 94 3.5 07/04/16 07:20 72 30 94 Nasal Cannula 3.5 07/04/16 05:45 87 96 6.0 07/04/16 04:43 BiPAP 07/04/16 04:11 36.5 79 22 142/81 96 BiPAP 07/04/16 01:48 84 96 8.0 07/04/16 01:47 85 20 96 BiPAP/CPAP 8.0 07/04/16 00:16 Nasal Cannula 4.0 07/04/16 00:06 98 22 95 BiPAP/CPAP 5.0 07/04/16 00:05 94 96 5.0 07/03/16 23:57 36.5 83 22 157/82 96 BiPAP 07/03/16 22:05 89 96 5.0 07/03/16 21:00 98 22 95 BiPAP/CPAP 5.0 07/03/16 20:12 Nasal Cannula 4.0 07/03/16 18:58 36.6 105 24 165/99 95 Nasal Cannula 3.0 07/03/16 15:41 90 96 4.0 07/03/16 15:35 36.7 96 20 149/78 94 BiPAP 07/03/16 15:17 Nasal Cannula 4.0 Physical Exam General Appearance: + moderate distress (respiratory distress) Respiratory/Chest: + respiratory distress, + accessory muscle use, + wheezing ( diffuse wheezing) Cardiovascular: no edema, no murmur, + tachycardia Abdomen: normal bowel sounds, soft, + hernia (ventral hernia, nontender) Extremities: normal inspection, no pedal edema Neurologic/Psychiatric: no motor/sensory deficits, alert, normal mood/affect Skin: normal color Laboratory Results Last 24 Hours Test 07/04/16 05:16 White Blood Count 12.12 K/uL Red Blood Count 5.10 M/uL Hemoglobin 15.8 g/dL Hematocrit 47.2 % Mean Corpuscular Volume 92.5 fL Mean Corpuscular Hemoglobin 31.0 pg Mean Corpuscular Hemoglobin Concent 33.5 g/dl RDW Standard Deviation 44.6 fL RDW Coefficient of Variation 13.1 % Platelet Count 255 K/uL Mean Platelet Volume 9.8 fL Sodium Level 140 mmol/L Potassium Level 4.5 mmol/L Chloride Level 100 mmol/L Carbon Dioxide Level 32 mmol/L Anion Gap 8.0 mmol/L Blood Urea Nitrogen 26 mg/dl Creatinine 0.97 mg/dl Est Creatinine Clear Calc Drug Dose 111.3 ml/min Estimated GFR () 102.2 Estimated GFR (Non- 88.1 BUN/Creatinine Ratio 27.2 Random Glucose 126 mg/dl Calcium Level 8.8 mg/dl Assessment and Plan This is a 55 year old male with severe COPD presents with COPD exacerbation Acute on Chronic Respiratory Failure Acute COPD exacerbation 07/04 appreciate pulm input continue solu-medrol abx changed to Levaquin IV ativan for anxiety as needed daliresp added nebs as needed will need ICS+LABA+LAMA on discharge may need azithro as well 07/03 patient with very severe COPD; predicted FEV1 of 22% Uses continuous O2 at home at 2L with increases in requirements with activity Uses Dulera + Spiriva On chronic prednisone, alternating between 10mg and 5mg While in-patient, he has been started on solu-medrol 60mg q8 IV Ativan for anxiety as needed nebulizers around the clock and as needed Patient is not tolerating Bipap Added daliresp daily May need to switch Dulera to newer LABA will consider starting on chronic macrolide would appreciate pulmonary input - consult placed DVT ppx subq heparin FULL CODE
[2016-07-04] MEDS: LORAZEPAM 2 MG/ML 1 ML VIAL IV PRN ×3 (14:03→23:19)
[2016-07-04] MEDS: LEVOFLOXACIN 750MG / D5W IV SCH (16:03)
[2016-07-04] MEDS ORDERED: SODIUM CHLORIDE 0.65% NA SOLN 45 ML (OCEAN) ONE (19:00)
[2016-07-05] VITALS (20 sets, daily range): BP systolic 136–179; BP diastolic 76–137; PULSE 55–108; TEMP 36.4–36.7; O2SAT 92–99
[2016-07-05] MEDS: IPRATROPIUM BROMIDE NEB SOLN 0.02% 2.5 ML VIAL INH SCH ×4 (02:05→16:29)
[2016-07-05] MEDS: LEVALBUTEROL 1.25MG/0.5ML NEB INH SCH ×4 (02:05→16:29)
[2016-07-05] MEDS: METHYLPREDNISOLONE IV 60 MG in SYRINGE 0 ML IV SCH ×3 (05:06→19:39)
[2016-07-05] MEDS: LORAZEPAM 2 MG/ML 1 ML VIAL IV PRN ×4 (05:37→23:42)
[2016-07-05] MEDS: LEVALBUTEROL 1.25MG/3ML NEB INH PRN ×3 (05:41→11:10)
[2016-07-05] MEDS: HEPARIN SOD 5000 UNIT/0.5 ML CARP SQ SCH ×3 (06:00→21:57)
--- NOTE | 2016-07-05 08:51 | Pulmonology Progress Note ---
Pulmonary Progress Note Date of Service Jul 05, 2016. Attending Dr. Pitts Subjective Patient notes mild improvement in his overall respiratory status. He still notes severe dyspnea at rest but does not complain of, pleurisy, cardiac chest pain, fever or chills at this time. Objective Patient on BiPAP sleeping comfortably when I walked into the room. During our conversation I did note tachypnea as well as use of accessory muscles on the BiPAP machine. Vital signs: Reviewed stable on BiPAP with 3 L nasal cannula Gen: Fatigued Respiratory: Decreased breath sounds bilaterally, use of accessory muscles Cardiac: S1-S2 regular rate very distant heart sounds on the 12th to auscultate for murmurs rubs or gallops Skin: No current breakdown CTA thorax: No pulmonary emboli identified, and notable motion artifact, diffuse emphysema Bronchiectasis with scarring appreciated in the lingual LB5 (8x27mm) Assessment & Plan 55-year-old male with very severe COPD FEV1 23% predicted admitted for acute on chronic respiratory insufficiency: #1 Acute COPD Flare: At this time continue BiPAP, oxygen support, steroids and Daliresp. I will discontinue the Dulera inhaler at this time as the patient does not have the physical capability perform proper inhaler technique. #2 chronic COPD: We will reinitiate proper outpatient inhalers prior to discharge. We'll also continue to follow up with patient as an outpatient and maintain contact with you pending transplant service. You pending transplant service goals: BMI: < 35 Pulmonary rehabilitation Medication compliance Attempt to wean off prednisone Attempt to wean off nicotine patch Smoking cessation program No marijuana either inhaled and/or orally consumed Data Medications: Current Inpatient Medications Medications (Trade) Dose Ordered Sig/Ember Route Start Time Stop Time Status Last Admin Dose Admin Ioversol (Optiray 320) 125 ml UD PRN IV 07/02/16 20:15 07/06/16 20:14 Heparin Sodium (Porcine) (Heparin Sq 5000 Unit/0.5ml) 5,000 unit Q8 SQ 07/03/16 06:00 08/02/16 05:59 07/05/16 06:00 5,000 UNIT Acetaminophen (Tylenol Tab) 650 mg Q4H PRN PO 07/02/16 23:00 08/01/16 22:59 Ondansetron HCl (Zofran Inj) 4 mg Q6H PRN IV 07/02/16 23:00 08/01/16 22:59 Aspirin (Ecotrin Tab) 81 mg DAILY PO 07/03/16 09:00 08/02/16 08:59 07/04/16 07:52 81 MG Nicotine (Nicoderm Cq 21MG Patch) 1 patch DAILY TD 07/03/16 09:00 08/02/16 08:59 07/04/16 07:53 1 PATCH Cholecalciferol 2000 inter.unit 2,000 inter.unit DAILY PO 07/03/16 09:00 08/02/16 08:59 07/04/16 07:53 2,000 INTER.UNIT Methylprednisolone Sodium Succinate/ Syringe (Solu-Medrol IV/ Syringe) 0.96 ml @ 1.5 mls/min Q8H IV 07/03/16 04:00 08/02/16 03:59 07/05/16 05:06 1.5 MLS/MIN Pantoprazole Sodium (Protonix Tab) 40 mg QAM PO 07/03/16 09:00 08/02/16 08:59 07/04/16 07:53 40 MG Lorazepam (Ativan Inj) 0.5 mg Q4H PRN IV 07/03/16 09:00 08/02/16 08:59 07/05/16 05:37 0.5 MG Roflumilast 500 mcg 500 mcg DAILY PO 07/03/16 09:00 08/02/16 08:59 07/04/16 07:53 500 MCG Lorazepam/Syringe (Ativan Inj/ Syringe) 1 ml @ 1 mls/min Q4H PRN IV 07/03/16 08:45 08/02/16 08:44 07/03/16 16:13 1 MLS/MIN Levalbuterol (Xopenex 1.25MG/ 3ML Neb) 1.25 mg Q2R PRN INH 07/03/16 15:00 08/02/16 14:59 07/05/16 08:03 1.25 MG Ipratropium [place] (Atrovent 0.02% 0.5MG/2.5ML Neb) 0.5 mg Q6R INH 07/03/16 21:00 08/02/16 20:59 07/05/16 07:20 0.5 MG Levalbuterol 1.25 mg 1.25 mg Q6R INH 07/03/16 21:00 08/02/16 20:59 07/05/16 07:20 1.25 MG Levofloxacin/Prmx (Levaquin / D5W/ Premixed D5W) 150 ml @ 100 mls/hr DAILY@1600 IV 07/03/16 16:30 07/10/16 16:29 07/04/16 16:03 100 MLS/HR Mometasone Furoate/ Formoterol Fumar (Dulera) 2 ea BID INH 07/04/16 09:00 08/03/16 08:59 07/04/16 19:30 2 EA I & O: 24-Hour Column 07/05/16 07:59 Intake Total 820 ml Output Total 700 ml Balance 120 ml Vital Signs: Date Time Temp Pulse Resp B/P Pulse Ox O2 Delivery O2 Flow Rate FiO2 07/05/16 08:22 28 BiPAP 07/05/16 08:03 101 22 98 BiPAP/CPAP 3.0 07/05/16 07:40 36.6 86 20 167/111 95 BiPAP 170/137 07/05/16 07:20 108 22 98 Nasal Cannula 3.0 07/05/16 07:19 36.6 87 167/111 98 Nasal Cannula 3.0 07/05/16 06:04 107 95 3.0 07/05/16 05:41 108 28 92 Nasal Cannula 3.0 07/05/16 05:00 36.4 82 20 150/102 95 Nasal Cannula 3.0 07/05/16 04:00 92 Nasal Cannula 3.0 96 Humidified Oxygen 07/05/16 02:07 73 96 3.0 07/05/16 02:06 73 24 96 BiPAP/CPAP 3.0 07/05/16 00:11 36.5 104 24 150/95 94 Nasal Cannula 3.0 07/05/16 00:06 92 Nasal Cannula 3.0 96 Humidified Oxygen 07/04/16 23:05 98 30 96 Nasal Cannula 3.5 07/04/16 22:19 88 91 3.5 07/04/16 20:00 92 Nasal Cannula 3.0 96 Humidified Oxygen 07/04/16 19:59 37.0 105 24 159/105 92 Nasal Cannula 3.0 Humidified Oxygen 07/04/16 19:06 99 30 96 Nasal Cannula 3.5 07/04/16 16:00 Nasal Cannula 3.5 07/04/16 15:17 36.9 98 24 164/95 95 BiPAP 07/04/16 14:51 99 30 96 Nasal Cannula 3.5 07/04/16 12:00 Nasal Cannula 3.5 07/04/16 11:02 36.4 79 18 157/89 97 BiPAP
--- NOTE | 2016-07-05 10:55 | Progress Note ---
Subjective Date of Service: Jul 05, 2016. Subjective Pt evaluation today including: conversation w/ patient, physical exam, lab review, review of studies, review of inpatient medication list Saw/examined the patient in room 233 Agitated this morning, wants neb treatments prior to eating currently with bipap on - continues to have respiratory distress and accessory muscle use Problem List Medical Problems: (1) COPD exacerbation Status: Acute Review of Systems Constitutional: No chills, No fever Respiratory: + cough, + dyspnea at rest, + dyspnea on exertion, + shortness of breath, + wheezing, No hemoptysis, No sputum Cardiac: No chest pain, No edema, No orthopnea, No palpitations Heme: No abnormal bleeding/bruising Medications Current Inpatient Medications Medications (Trade) Dose Ordered Sig/Ember Route Start Time Stop Time Status Last Admin Dose Admin Ioversol (Optiray 320) 125 ml UD PRN IV 07/02/16 20:15 07/06/16 20:14 Heparin Sodium (Porcine) (Heparin Sq 5000 Unit/0.5ml) 5,000 unit Q8 SQ 07/03/16 06:00 08/02/16 05:59 07/05/16 06:00 5,000 UNIT Acetaminophen (Tylenol Tab) 650 mg Q4H PRN PO 07/02/16 23:00 08/01/16 22:59 Ondansetron HCl (Zofran Inj) 4 mg Q6H PRN IV 07/02/16 23:00 08/01/16 22:59 Aspirin (Ecotrin Tab) 81 mg DAILY PO 07/03/16 09:00 08/02/16 08:59 07/04/16 07:52 81 MG Nicotine (Nicoderm Cq 21MG Patch) 1 patch DAILY TD 07/03/16 09:00 08/02/16 08:59 07/04/16 07:53 1 PATCH Cholecalciferol 2000 inter.unit 2,000 inter.unit DAILY PO 07/03/16 09:00 08/02/16 08:59 07/04/16 07:53 2,000 INTER.UNIT Methylprednisolone Sodium Succinate/ Syringe (Solu-Medrol IV/ Syringe) 0.96 ml @ 1.5 mls/min Q8H IV 07/03/16 04:00 08/02/16 03:59 07/05/16 05:06 1.5 MLS/MIN Pantoprazole Sodium (Protonix Tab) 40 mg QAM PO 07/03/16 09:00 08/02/16 08:59 07/04/16 07:53 40 MG Lorazepam (Ativan Inj) 0.5 mg Q4H PRN IV 07/03/16 09:00 08/02/16 08:59 07/05/16 05:37 0.5 MG Roflumilast 500 mcg 500 mcg DAILY PO 07/03/16 09:00 08/02/16 08:59 07/04/16 07:53 500 MCG Lorazepam/Syringe (Ativan Inj/ Syringe) 1 ml @ 1 mls/min Q4H PRN IV 07/03/16 08:45 08/02/16 08:44 07/03/16 16:13 1 MLS/MIN Levalbuterol (Xopenex 1.25MG/ 3ML Neb) 1.25 mg Q2R PRN INH 07/03/16 15:00 08/02/16 14:59 07/05/16 08:03 1.25 MG Ipratropium [place] (Atrovent 0.02% 0.5MG/2.5ML Neb) 0.5 mg Q6R INH 07/03/16 21:00 08/02/16 20:59 07/05/16 07:20 0.5 MG Levalbuterol 1.25 mg 1.25 mg Q6R INH 07/03/16 21:00 08/02/16 20:59 07/05/16 07:20 1.25 MG Levofloxacin/Prmx (Levaquin / D5W/ Premixed D5W) 150 ml @ 100 mls/hr DAILY@1600 IV 07/03/16 16:30 07/10/16 16:29 07/04/16 16:03 100 MLS/HR Objective Vital Signs Date Time Temp Pulse Resp B/P Pulse Ox O2 Delivery O2 Flow Rate FiO2 07/05/16 08:22 28 BiPAP 07/05/16 08:03 101 22 98 BiPAP/CPAP 3.0 07/05/16 08:00 Humidified Oxygen BiPAP 07/05/16 07:40 36.6 86 20 167/111 95 BiPAP 170/137 07/05/16 07:20 108 22 98 Nasal Cannula 3.0 07/05/16 07:19 36.6 87 167/111 98 Nasal Cannula 3.0 07/05/16 06:04 107 95 3.0 07/05/16 05:41 108 28 92 Nasal Cannula 3.0 07/05/16 05:00 36.4 82 20 150/102 95 Nasal Cannula 3.0 07/05/16 04:00 92 Nasal Cannula 3.0 96 Humidified Oxygen 07/05/16 02:07 73 96 3.0 07/05/16 02:06 73 24 96 BiPAP/CPAP 3.0 07/05/16 00:11 36.5 104 24 150/95 94 Nasal Cannula 3.0 07/05/16 00:06 92 Nasal Cannula 3.0 96 Humidified Oxygen 07/04/16 23:05 98 30 96 Nasal Cannula 3.5 07/04/16 22:19 88 91 3.5 07/04/16 20:00 92 Nasal Cannula 3.0 96 Humidified Oxygen 07/04/16 19:59 37.0 105 24 159/105 92 Nasal Cannula 3.0 Humidified Oxygen 07/04/16 19:06 99 30 96 Nasal Cannula 3.5 07/04/16 16:00 Nasal Cannula 3.5 07/04/16 15:17 36.9 98 24 164/95 95 BiPAP 07/04/16 14:51 99 30 96 Nasal Cannula 3.5 07/04/16 12:00 Nasal Cannula 3.5 07/04/16 11:02 36.4 79 18 157/89 97 BiPAP Physical Exam General Appearance: + moderate distress (mentally an agitated gentleman; he is obese and is in a moderate respiratory distress; requiring accessory muscles to breath) Respiratory/Chest: + respiratory distress, + decreased breath sounds, + accessory muscle use, + wheezing (diffusely) Cardiovascular: no edema, no murmur, + tachycardia Abdomen: soft, + hernia (ventral hernia; nontender) Extremities: normal inspection, no pedal edema Assessment and Plan This is a 55 year old male with severe COPD presents with COPD exacerbation Acute on Chronic Respiratory Failure Acute COPD exacerbation 07/05 appreciate pulm input continue Levaquin and steroids as prescribed for now stopped Dulera as patient cannot use it currently with breathing status Bipap and oxygen support continue Daliresp nebulizer treatments around the clock and as needed - should get these prior to eating will have new regimen prior to discharge in terms of inhalers, possible abx. chronically to get on transplant list, there a list of requirements - appreciate pulmonary input on these 07/04 appreciate pulm input continue solu-medrol abx changed to Levaquin IV ativan for anxiety as needed daliresp added nebs as needed will need ICS+LABA+LAMA on discharge may need azithro as well 07/03 patient with very severe COPD; predicted FEV1 of 22% Uses continuous O2 at home at 2L with increases in requirements with activity Uses Dulera + Spiriva On chronic prednisone, alternating between 10mg and 5mg While in-patient, he has been started on solu-medrol 60mg q8 IV Ativan for anxiety as needed nebulizers around the clock and as needed Patient is not tolerating Bipap Added daliresp daily May need to switch Dulera to newer LABA will consider starting on chronic macrolide would appreciate pulmonary input - consult placed DVT ppx subq heparin FULL CODE
[2016-07-05] MEDS: LORAZEPAM INJ 0.5 MG in SYRINGE 0.75 ML IV PRN (11:33)
[2016-07-05] MEDS ORDERED: NURSING VERBAL MED ORDER ONE ×2 (12:45→19:45)
[2016-07-05] MEDS ORDERED: LORAZEPAM 2 MG/ML 1 ML VIAL IV ONE (13:00)
[2016-07-05] MEDS: NICOTINE 21 MG/24 HR TDSY TD SCH (13:05)
[2016-07-05] MEDS: LEVOFLOXACIN 750MG / D5W IV SCH (15:50)
[2016-07-05] MEDS: CHOLECALCIFEROL 1000 INTER.UNIT TAB PO SCH (15:50)
[2016-07-05] MEDS: ROFLUMILAST 500 MCG TAB PO SCH (15:50)
[2016-07-05] MEDS: PANTOprazole SOD 40 MG TAB PO SCH (15:50)
[2016-07-05] MEDS: ASPIRIN 81 MG ECTAB PO SCH (15:50)
[2016-07-05] MEDS ORDERED: LORAZEPAM 2 MG/ML 1 ML VIAL IV SCH (20:00)
[2016-07-05] MEDS ORDERED: LORAZEPAM INJ 1 MG in SYRINGE 0.75 ML IV PRN (20:45)
[2016-07-06] VITALS (16 sets, daily range): BP systolic 130–171; BP diastolic 82–114; PULSE 75–105; TEMP 36.4–36.7; O2SAT 94–99
[2016-07-06] MEDS: IPRATROPIUM BROMIDE NEB SOLN 0.02% 2.5 ML VIAL INH SCH ×4 (02:13→19:11)
[2016-07-06] MEDS: LEVALBUTEROL 1.25MG/0.5ML NEB INH SCH ×4 (02:13→19:11)
[2016-07-06] MEDS: LORAZEPAM 2 MG/ML 1 ML VIAL IV PRN ×5 (03:36→21:42)
[2016-07-06] MEDS: METHYLPREDNISOLONE IV 60 MG in SYRINGE 0 ML IV SCH ×3 (03:36→19:25)
[2016-07-06] MEDS: HEPARIN SOD 5000 UNIT/0.5 ML CARP SQ SCH ×3 (06:00→21:47)
[2016-07-06 06:35] LABS: HEMATOCRIT 46.9 % (42-52); MEAN CELL VOLUME 92.3 fL (80-100); MEAN CORPUSCULAR HEMOGLOBIN 30.9 pg (25-34); MEAN CORPUSCULAR HGB CONC 33.5 g/dl (32-36); MEAN PLATELET VOLUME 10.5 fL (7.4-10.4); PLATELET COUNT 230 K/uL (130-400); RED BLOOD COUNT 5.08 M/uL (4.7-6.1); WHITE BLOOD COUNT 13.61 K/uL (4.8-10.8)
[2016-07-06 07:00] LABS: BUN/CREATININE RATIO 28.4 (10-20); CALCIUM 8.6 mg/dl (8.5-10.1); CREATININE 0.9 mg/dl (0.60-1.40); POTASSIUM 4.5 mmol/L (3.5-5.1)
[2016-07-06] MEDS ORDERED: COUGH DROP (SUGAR FREE) LOZ 24 LOZ/1 BOX ONE (08:04)
[2016-07-06] MEDS: ASPIRIN 81 MG ECTAB PO SCH (08:14)
[2016-07-06] MEDS: CHOLECALCIFEROL 1000 INTER.UNIT TAB PO SCH (08:14)
[2016-07-06] MEDS: ROFLUMILAST 500 MCG TAB PO SCH (08:14)
[2016-07-06] MEDS: PANTOprazole SOD 40 MG TAB PO SCH (08:15)
[2016-07-06] MEDS: NICOTINE 21 MG/24 HR TDSY TD SCH (08:15)
[2016-07-06] MEDS: LEVALBUTEROL 1.25MG/3ML NEB INH PRN ×3 (11:14→16:54)
--- NOTE | 2016-07-06 12:06 | PROGRESS NOTE ---
DATE: 07/06/2016 DATE: 07/06/2016. PROBLEM LIST: Includes severe chronic obstructive pulmonary disease with FEV1 of 22%, chronic respiratory insufficiency, exacerbation of his chronic obstructive pulmonary disease. SUBJECTIVE: The patient notes that he is more short of breath this morning. He states that he got out of bed to quickly and that always makes him more dyspnea. He states it usually takes him a couple hours to recover. I did speak with nursing and they do have respiratory called, they are coming up to do a nebulizer treatment with him. He states that typically helps. He denies any other problems, not having much in the way of cough at this time. No chest congestion, no chest pain, no abdominal pain. OBJECTIVE: GENERAL: The patient is a 55-year-old male sitting in chair when I entered. His tachypneic is breathless with conversation. Does have some accessory muscle use. He is currently on 3 liters of oxygen via nasal cannula. VITAL SIGNS: Temp 36.5, pulse 88, respirations 20, blood pressure is 171/114, pulse ox 96% on 3 liters. HEAD, EYES, EARS, NOSE, AND THROAT: Normocephalic, atraumatic. Pupils equal, round and reactive to light and accommodation. Extraocular movements are intact. [place] moist gingival and buccal mucosa. NECK: Supple. No mass, no adenopathy or bruit. CHEST: Decreased breath sounds. No appreciated wheezes at this time, although with decreased breath sounds not sure which air flow he is generating to create a wheeze. 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 CARDIOVASCULAR: Regular rate and rhythm. No murmurs, gallops or rubs appreciated. ABDOMEN: Soft, nontender. No guarding, rigidity or organomegaly. EXTREMITIES: No erythema or edema. Nontender to palpation. NEUROLOGIC: Cranial nerves II through XII grossly intact. No focal deficits. LABORATORY DATA: Shows white count 13,000, H\T\H 15.7 and 46.9, platelet count 230,000. BUN 26, creatinine 0.9. No new imaging data. IMPRESSION: This is a 55-year-old male with severe COPD. At this time, he is having some difficulty. Respiratory therapy was called and a nebulizer treatment is going to be started soon. Another issue I think the patient is having is Ativan withdrawal, anxiety. I think that Ativan dose needs to be adjusted. I did speak with nursing who states that hospitalist was going to change Ativan to p.o. routinely t.i.d. and then IV p.r.n. I think that is appropriate. May also want to consider at some point some IV morphine for respiratory. Will continue to follow the patient through hospitalization. Patient and chart reviewed and agree with plan above MTDD
[2016-07-06] MEDS ORDERED: LORAZEPAM IV PRN (12:45)
[2016-07-06] MEDS: LORAZEPAM 1 MG TAB PO SCH ×2 (14:01→20:59)
--- NOTE | 2016-07-06 14:45 | Progress Note ---
Subjective Date of Service: Jul 06, 2016. Subjective Pt evaluation today including: conversation w/ patient, physical exam, lab review, review of studies, review of inpatient medication list Saw/examined the patient in room 233 He is very agitated and anxious today Has been frustrated with his breathing status States he wants breathing treatments more often Problem List Medical Problems: (1) COPD exacerbation Status: Acute Review of Systems Constitutional: No chills, No fever Respiratory: + cough, + dyspnea at rest, + dyspnea on exertion, + shortness of breath, + sputum, + wheezing, No hemoptysis Cardiac: No chest pain, No edema, No palpitations Abdomen: No diarrhea, No nausea, No pain, No vomiting Psychiatric: + anxiety Heme: No abnormal bleeding/bruising Medications Current Inpatient Medications Medications (Trade) Dose Ordered Sig/Ember Route Start Time Stop Time Status Last Admin Dose Admin Ioversol (Optiray 320) 125 ml UD PRN IV 07/02/16 20:15 07/06/16 20:14 Heparin Sodium (Porcine) (Heparin Sq 5000 Unit/0.5ml) 5,000 unit Q8 SQ 07/03/16 06:00 08/02/16 05:59 07/06/16 06:00 5,000 UNIT Acetaminophen (Tylenol Tab) 650 mg Q4H PRN PO 07/02/16 23:00 08/01/16 22:59 Ondansetron HCl (Zofran Inj) 4 mg Q6H PRN IV 07/02/16 23:00 08/01/16 22:59 Aspirin (Ecotrin Tab) 81 mg DAILY PO 07/03/16 09:00 08/02/16 08:59 07/06/16 08:14 81 MG Nicotine (Nicoderm Cq 21MG Patch) 1 patch DAILY TD 07/03/16 09:00 08/02/16 08:59 07/06/16 08:15 1 PATCH Cholecalciferol 2000 inter.unit 2,000 inter.unit DAILY PO 07/03/16 09:00 08/02/16 08:59 07/06/16 08:14 2,000 INTER.UNIT Methylprednisolone Sodium Succinate/ Syringe (Solu-Medrol IV/ Syringe) 0.96 ml @ 1.5 mls/min Q8H IV 07/03/16 04:00 08/02/16 03:59 07/06/16 11:51 1.5 MLS/MIN Pantoprazole Sodium (Protonix Tab) 40 mg QAM PO 07/03/16 09:00 08/02/16 08:59 07/06/16 08:15 40 MG Roflumilast (Daliresp Tab) 500 mcg DAILY PO 07/03/16 09:00 08/02/16 08:59 07/06/16 08:14 500 MCG Ipratropium [place] (Atrovent 0.02% 0.5MG/2.5ML Neb) 0.5 mg Q6R INH 07/03/16 21:00 08/02/16 20:59 07/06/16 07:09 0.5 MG Levalbuterol 1.25 mg 1.25 mg Q6R INH 07/03/16 21:00 08/02/16 20:59 07/06/16 07:09 1.25 MG Levofloxacin/Prmx (Levaquin / D5W/ Premixed D5W) 150 ml @ 100 mls/hr DAILY@1600 IV 07/03/16 16:30 07/10/16 16:29 07/05/16 15:50 100 MLS/HR Levalbuterol 1.25 mg 1.25 mg Q1HWA PRN INH 07/05/16 12:00 08/04/16 11:59 07/06/16 11:54 1.25 MG Lorazepam/Syringe (Ativan Inj/ Syringe) 1.75 ml @ 1 mls/min Q4H PRN IV 07/06/16 12:45 08/05/16 12:44 Lorazepam (Ativan Tab) 1 mg TID PO 07/06/16 14:00 08/05/16 13:59 07/06/16 14:01 1 MG Lorazepam (Ativan Inj) 2 mg Q4 PRN IV 07/06/16 10:45 08/05/16 10:44 07/06/16 11:52 2 MG Objective Vital Signs Date Time Temp Pulse Resp B/P Pulse Ox O2 Delivery O2 Flow Rate FiO2 07/06/16 11:57 Humidified Oxygen 5.0 BiPAP 07/06/16 11:55 93 20 96 Nasal Cannula 3.0 07/06/16 11:14 88 20 96 Nasal Cannula 3.0 07/06/16 10:54 36.5 88 24 171/114 95 4.0 07/06/16 08:00 Humidified Oxygen 3.0 BiPAP 07/06/16 07:27 36.5 81 20 130/82 96 4.0 07/06/16 07:09 95 20 96 Nasal Cannula 3.0 07/06/16 04:45 Nasal Cannula 3.0 Humidified Oxygen 07/06/16 03:33 36.4 86 30 158/91 95 Nasal Cannula 3.0 07/06/16 02:13 75 20 98 Nasal Cannula 3.0 07/06/16 00:01 Nasal Cannula 3.0 Humidified Oxygen 07/05/16 23:05 36.5 85 22 157/90 96 Nasal Cannula 3.0 Humidified Oxygen 07/05/16 20:00 Nasal Cannula 3.0 Humidified Oxygen 07/05/16 19:52 36.7 97 24 179/91 93 BiPAP 07/05/16 19:12 96 22 96 BiPAP/CPAP 3.0 07/05/16 19:12 96 96 3.0 07/05/16 16:29 87 16 98 Nasal Cannula 3.0 07/05/16 16:00 Humidified Oxygen 3.0 BiPAP 07/05/16 15:20 36.7 91 22 136/90 99 Nasal Cannula 3.0 07/05/16 15:10 84 18 98 Nasal Cannula 3.0 Physical Exam General Appearance: + moderate distress (moderate respiratory distress; + agitation and anxiousness), + obese Respiratory/Chest: + respiratory distress, + accessory muscle use, + wheezing Cardiovascular: no edema, no murmur, + tachycardia Abdomen: soft, + hernia Extremities: normal inspection, no pedal edema Laboratory Results Last 24 Hours Test 07/06/16 05:58 White Blood Count 13.61 K/uL Red Blood Count 5.08 M/uL Hemoglobin 15.7 g/dL Hematocrit 46.9 % Mean Corpuscular Volume 92.3 fL Mean Corpuscular Hemoglobin 30.9 pg Mean Corpuscular Hemoglobin Concent 33.5 g/dl RDW Standard Deviation 44.5 fL RDW Coefficient of Variation 13.1 % Platelet Count 230 K/uL Mean Platelet Volume 10.5 fL Sodium Level 139 mmol/L Potassium Level 4.5 mmol/L Chloride Level 99 mmol/L Carbon Dioxide Level 36 mmol/L Anion Gap 4.0 mmol/L Blood Urea Nitrogen 26 mg/dl Creatinine 0.90 mg/dl Est Creatinine Clear Calc Drug Dose 115.1 ml/min Estimated GFR () 111.8 Estimated GFR (Non- 96.5 BUN/Creatinine Ratio 28.4 Random Glucose 124 mg/dl Calcium Level 8.6 mg/dl Assessment and Plan This is a 55 year old male with severe COPD presents with COPD exacerbation Acute on Chronic Respiratory Failure Acute COPD exacerbation 07/06 appreciate pulmonary input complicated and very agitated patient; will change around benzo use PO Ativan TID and IV PRN Ativan continue Levaquin daily, Daliresp daily Solumedrol 60mg q8 patient is requiring neb treatments hourly 07/05 appreciate pulm input continue Levaquin and steroids as prescribed for now stopped Dulera as patient cannot use it currently with breathing status Bipap and oxygen support continue Daliresp nebulizer treatments around the clock and as needed - should get these prior to eating will have new regimen prior to discharge in terms of inhalers, possible abx. chronically to get on transplant list, there a list of requirements - appreciate pulmonary input on these 07/04 appreciate pulm input continue solu-medrol abx changed to Levaquin IV ativan for anxiety as needed daliresp added nebs as needed will need ICS+LABA+LAMA on discharge may need azithro as well 07/03 patient with very severe COPD; predicted FEV1 of 22% Uses continuous O2 at home at 2L with increases in requirements with activity Uses Dulera + Spiriva On chronic prednisone, alternating between 10mg and 5mg While in-patient, he has been started on solu-medrol 60mg q8 IV Ativan for anxiety as needed nebulizers around the clock and as needed Patient is not tolerating Bipap Added daliresp daily May need to switch Dulera to newer LABA will consider starting on chronic macrolide would appreciate pulmonary input - consult placed DVT ppx subq heparin FULL CODE
[2016-07-06] MEDS: LEVOFLOXACIN 750MG / D5W IV SCH (16:37)
[2016-07-07] VITALS (13 sets, daily range): BP systolic 141–173; BP diastolic 92–121; PULSE 72–96; TEMP 36.5–36.8; O2SAT 92–98
[2016-07-07] MEDS: LEVALBUTEROL 1.25MG/0.5ML NEB INH SCH ×4 (01:51→19:58)
[2016-07-07] MEDS: IPRATROPIUM BROMIDE NEB SOLN 0.02% 2.5 ML VIAL INH SCH ×4 (01:51→19:58)
[2016-07-07] MEDS: LORAZEPAM 2 MG/ML 1 ML VIAL IV PRN ×5 (03:02→21:39)
[2016-07-07] MEDS: METHYLPREDNISOLONE IV 60 MG in SYRINGE 0 ML IV SCH (05:21)
[2016-07-07] MEDS: HEPARIN SOD 5000 UNIT/0.5 ML CARP SQ SCH ×3 (05:22→21:46)
[2016-07-07 06:20] LABS: HEMATOCRIT 46.4 % (42-52); MEAN CELL VOLUME 92.1 fL (80-100); MEAN CORPUSCULAR HEMOGLOBIN 30.4 pg (25-34); MEAN PLATELET VOLUME 10.5 fL (7.4-10.4); PLATELET COUNT 218 K/uL (130-400); RED BLOOD COUNT 5.04 M/uL (4.7-6.1); WHITE BLOOD COUNT 12.67 K/uL (4.8-10.8)
[2016-07-07 06:49] LABS: BUN/CREATININE RATIO 30.1 (10-20); CALCIUM 8.8 mg/dl (8.5-10.1); CREATININE 0.74 mg/dl (0.60-1.40); MAGNESIUM 2.6 mg/dl (1.8-2.4); POTASSIUM 4.4 mmol/L (3.5-5.1)
[2016-07-07] MEDS: LORAZEPAM 1 MG TAB PO SCH ×3 (08:16→20:31)
[2016-07-07] MEDS: CHOLECALCIFEROL 1000 INTER.UNIT TAB PO SCH (08:16)
[2016-07-07] MEDS: ROFLUMILAST 500 MCG TAB PO SCH (08:17)
[2016-07-07] MEDS: PANTOprazole SOD 40 MG TAB PO SCH (08:17)
[2016-07-07] MEDS: NICOTINE 21 MG/24 HR TDSY TD SCH (08:17)
[2016-07-07] MEDS: ASPIRIN 81 MG ECTAB PO SCH (08:17)
--- NOTE | 2016-07-07 10:33 | Progress Note ---
Subjective Date of Service: Jul 07, 2016. Subjective Pt evaluation today including: conversation w/ patient, physical exam, lab review, review of studies, review of inpatient medication list Saw/examined the patient in room 233 No problems/issues to note today He has no new complaints Problem List Medical Problems: (1) COPD exacerbation Status: Acute Review of Systems Respiratory: + cough, + dyspnea at rest, + dyspnea on exertion, + shortness of breath, + sputum, + wheezing, No hemoptysis Cardiac: No chest pain, No edema, No palpitations Abdomen: No GI bleeding, No constipation, No diarrhea, No nausea, No pain, No vomiting Psychiatric: + anxiety Medications Current Inpatient Medications Medications (Trade) Dose Ordered Sig/Ember Route Start Time Stop Time Status Last Admin Dose Admin Heparin Sodium (Porcine) (Heparin Sq 5000 Unit/0.5ml) 5,000 unit Q8 SQ 07/03/16 06:00 08/02/16 05:59 07/07/16 05:22 5,000 UNIT Acetaminophen (Tylenol Tab) 650 mg Q4H PRN PO 07/02/16 23:00 08/01/16 22:59 Ondansetron HCl (Zofran Inj) 4 mg Q6H PRN IV 07/02/16 23:00 08/01/16 22:59 Aspirin (Ecotrin Tab) 81 mg DAILY PO 07/03/16 09:00 08/02/16 08:59 07/07/16 08:17 81 MG Nicotine (Nicoderm Cq 21MG Patch) 1 patch DAILY TD 07/03/16 09:00 08/02/16 08:59 07/07/16 08:17 1 PATCH Cholecalciferol 2000 inter.unit 2,000 inter.unit DAILY PO 07/03/16 09:00 08/02/16 08:59 07/07/16 08:16 2,000 INTER.UNIT Methylprednisolone Sodium Succinate/ Syringe (Solu-Medrol IV/ Syringe) 0.96 ml @ 1.5 mls/min Q8H IV 07/03/16 04:00 08/02/16 03:59 07/07/16 05:21 1.5 MLS/MIN Pantoprazole Sodium (Protonix Tab) 40 mg QAM PO 07/03/16 09:00 08/02/16 08:59 07/07/16 08:17 40 MG Roflumilast (Daliresp Tab) 500 mcg DAILY PO 07/03/16 09:00 08/02/16 08:59 07/07/16 08:17 500 MCG Ipratropium [place] (Atrovent 0.02% 0.5MG/2.5ML Neb) 0.5 mg Q6R INH 07/03/16 21:00 08/02/16 20:59 07/07/16 07:14 0.5 MG Levalbuterol 1.25 mg 1.25 mg Q6R INH 07/03/16 21:00 08/02/16 20:59 07/07/16 07:14 1.25 MG Levofloxacin/Prmx (Levaquin / D5W/ Premixed D5W) 150 ml @ 100 mls/hr DAILY@1600 IV 07/03/16 16:30 07/10/16 16:29 07/06/16 16:37 100 MLS/HR Levalbuterol 1.25 mg 1.25 mg Q1HWA PRN INH 07/05/16 12:00 08/04/16 11:59 07/06/16 16:54 1.25 MG Lorazepam/Syringe (Ativan Inj/ Syringe) 1.75 ml @ 1 mls/min Q4H PRN IV 07/06/16 12:45 08/05/16 12:44 Lorazepam (Ativan Tab) 1 mg TID PO 07/06/16 14:00 08/05/16 13:59 07/07/16 08:16 1 MG Lorazepam (Ativan Inj) 2 mg Q4 PRN IV 07/06/16 10:45 08/05/16 10:44 07/07/16 08:17 2 MG Objective Vital Signs Date Time Temp Pulse Resp B/P Pulse Ox O2 Delivery O2 Flow Rate FiO2 07/07/16 08:00 Humidified Oxygen 4.0 BiPAP 07/07/16 07:22 36.8 87 28 169/121 93 4.0 173/104 07/07/16 07:15 91 20 95 Nasal Cannula 4.0 07/07/16 04:02 36.7 76 20 156/100 94 Nasal Cannula 4.0 07/07/16 04:00 Nasal Cannula 4.0 BiPAP 07/07/16 01:51 73 20 98 Nasal Cannula 4.0 07/07/16 00:00 Nasal Cannula 4.0 BiPAP 07/06/16 23:27 36.7 80 20 138/97 99 Nasal Cannula 4.0 07/06/16 22:25 83 96 4.0 07/06/16 20:00 Nasal Cannula 5.0 BiPAP 07/06/16 19:41 36.7 102 24 150/89 94 4.0 07/06/16 19:13 104 96 4.0 07/06/16 19:12 105 24 96 BiPAP/CPAP 4.0 07/06/16 16:54 86 20 97 Nasal Cannula 3.0 07/06/16 16:00 Humidified Oxygen 5.0 BiPAP 07/06/16 15:41 36.5 86 20 165/94 97 Nasal Cannula 4.0 07/06/16 14:00 84 20 95 Nasal Cannula 3.0 07/06/16 11:57 Humidified Oxygen 5.0 BiPAP 07/06/16 11:55 93 20 96 Nasal Cannula 3.0 07/06/16 11:14 88 20 96 Nasal Cannula 3.0 07/06/16 10:54 36.5 88 24 171/114 95 4.0 Physical Exam General Appearance: + mild distress (mild respiratory distress) Respiratory/Chest: + respiratory distress, + accessory muscle use, + wheezing ( end expiratory wheezing) Cardiovascular: regular rate, rhythm, no edema, no murmur Abdomen: non tender, + hernia (ventral hernia, non-reducible, non-tender) Extremities: normal inspection, no pedal edema Laboratory Results Last 24 Hours Test 07/07/16 05:25 White Blood Count 12.67 K/uL Red Blood Count 5.04 M/uL Hemoglobin 15.3 g/dL Hematocrit 46.4 % Mean Corpuscular Volume 92.1 fL Mean Corpuscular Hemoglobin 30.4 pg Mean Corpuscular Hemoglobin Concent 33.0 g/dl RDW Standard Deviation 44.0 fL RDW Coefficient of Variation 13.2 % Platelet Count 218 K/uL Mean Platelet Volume 10.5 fL Sodium Level 140 mmol/L Potassium Level 4.4 mmol/L Chloride Level 99 mmol/L Carbon Dioxide Level 34 mmol/L Anion Gap 7.0 mmol/L Blood Urea Nitrogen 22 mg/dl Creatinine 0.74 mg/dl Est Creatinine Clear Calc Drug Dose 142.2 ml/min Estimated GFR () 121.2 Estimated GFR (Non- 104.6 BUN/Creatinine Ratio 30.1 Random Glucose 118 mg/dl Calcium Level 8.8 mg/dl Magnesium Level 2.6 mg/dl Assessment and Plan This is a 55 year old male with severe COPD presents with COPD exacerbation Acute on Chronic Respiratory Failure Acute COPD exacerbation 07/07 will taper steroids to 40mg q8 continue Levaquin, continue Daliresp nebulizers around the clock and PRN 07/06 appreciate pulmonary input complicated and very agitated patient; will change around benzo use PO Ativan TID and IV PRN Ativan continue Levaquin daily, Daliresp daily Solumedrol 60mg q8 patient is requiring neb treatments hourly 07/05 appreciate pulm input continue Levaquin and steroids as prescribed for now stopped Dulera as patient cannot use it currently with breathing status Bipap and oxygen support continue Daliresp nebulizer treatments around the clock and as needed - should get these prior to eating will have new regimen prior to discharge in terms of inhalers, possible abx. chronically to get on transplant list, there a list of requirements - appreciate pulmonary input on these 07/04 appreciate pulm input continue solu-medrol abx changed to Levaquin IV ativan for anxiety as needed daliresp added nebs as needed will need ICS+LABA+LAMA on discharge may need azithro as well 07/03 patient with very severe COPD; predicted FEV1 of 22% Uses continuous O2 at home at 2L with increases in requirements with activity Uses Dulera + Spiriva On chronic prednisone, alternating between 10mg and 5mg While in-patient, he has been started on solu-medrol 60mg q8 IV Ativan for anxiety as needed nebulizers around the clock and as needed Patient is not tolerating Bipap Added daliresp daily May need to switch Dulera to newer LABA will consider starting on chronic macrolide would appreciate pulmonary input - consult placed DVT ppx subq heparin FULL CODE
[2016-07-07] MEDS: LEVALBUTEROL 1.25MG/3ML NEB INH PRN ×2 (11:05→17:56)
[2016-07-07] MEDS: METHYLPREDNISOLONE IV 40 MG in SYRINGE 0 ML IV SCH ×2 (12:28→19:38)
[2016-07-07] MEDS: LEVOFLOXACIN 750MG / D5W IV SCH (17:53)
[2016-07-08] VITALS (13 sets, daily range): BP systolic 120–159; BP diastolic 85–114; PULSE 70–105; TEMP 36.3–36.9; O2SAT 94–100
[2016-07-08] MEDS: IPRATROPIUM BROMIDE NEB SOLN 0.02% 2.5 ML VIAL INH SCH ×6 (02:02→20:32)
[2016-07-08] MEDS: LEVALBUTEROL 1.25MG/0.5ML NEB INH SCH ×6 (02:02→20:31)
[2016-07-08] MEDS: METHYLPREDNISOLONE IV 40 MG in SYRINGE 0 ML IV SCH ×3 (04:39→20:12)
[2016-07-08] MEDS: HEPARIN SOD 5000 UNIT/0.5 ML CARP SQ SCH ×3 (06:17→22:02)
[2016-07-08] MEDS: NICOTINE 21 MG/24 HR TDSY TD SCH (08:00)
[2016-07-08] MEDS: LORAZEPAM 2 MG/ML 1 ML VIAL IV PRN ×3 (08:00→16:48)
[2016-07-08] MEDS: ROFLUMILAST 500 MCG TAB PO SCH (08:00)
[2016-07-08] MEDS: CHOLECALCIFEROL 1000 INTER.UNIT TAB PO SCH (08:00)
[2016-07-08] MEDS: ASPIRIN 81 MG ECTAB PO SCH (08:00)
[2016-07-08] MEDS: PANTOprazole SOD 40 MG TAB PO SCH (08:00)
[2016-07-08] MEDS: LORAZEPAM 1 MG TAB PO SCH ×3 (08:00→21:57)
--- NOTE | 2016-07-08 08:34 | Progress Note ---
Subjective Date of Service: Jul 08, 2016. Subjective Pt evaluation today including: conversation w/ patient, physical exam, lab review, review of studies, review of inpatient medication list Saw/examined the patient in room 233 He is resting in bed, laying and watching TV Ate his breakfast; states he feels better Less distress this morning, no agitation/anxiety this morning Problem List Medical Problems: (1) COPD exacerbation Status: Acute Review of Systems Constitutional: No chills, No fever, No weakness Respiratory: + cough, + dyspnea at rest, + dyspnea on exertion, + shortness of breath, + wheezing, No hemoptysis, No sputum Cardiac: No chest pain, No edema Abdomen: No diarrhea, No nausea, No pain, No vomiting Medications Current Inpatient Medications Medications (Trade) Dose Ordered Sig/Ember Route Start Time Stop Time Status Last Admin Dose Admin Heparin Sodium (Porcine) (Heparin Sq 5000 Unit/0.5ml) 5,000 unit Q8 SQ 07/03/16 06:00 08/02/16 05:59 07/08/16 06:17 5,000 UNIT Acetaminophen (Tylenol Tab) 650 mg Q4H PRN PO 07/02/16 23:00 08/01/16 22:59 Ondansetron HCl (Zofran Inj) 4 mg Q6H PRN IV 07/02/16 23:00 08/01/16 22:59 Aspirin (Ecotrin Tab) 81 mg DAILY PO 07/03/16 09:00 08/02/16 08:59 07/07/16 08:17 81 MG Nicotine (Nicoderm Cq 21MG Patch) 1 patch DAILY TD 07/03/16 09:00 08/02/16 08:59 07/07/16 08:17 1 PATCH Cholecalciferol (Vitamin D Tab) 2,000 inter.unit DAILY PO 07/03/16 09:00 08/02/16 08:59 07/07/16 08:16 2,000 INTER.UNIT Pantoprazole Sodium (Protonix Tab) 40 mg QAM PO 07/03/16 09:00 08/02/16 08:59 07/07/16 08:17 40 MG Roflumilast (Daliresp Tab) 500 mcg DAILY PO 07/03/16 09:00 08/02/16 08:59 07/07/16 08:17 500 MCG Ipratropium [place] (Atrovent 0.02% 0.5MG/2.5ML Neb) 0.5 mg Q6R INH 07/03/16 21:00 08/02/16 20:59 07/08/16 07:00 0.5 MG Levalbuterol 1.25 mg 1.25 mg Q6R INH 07/03/16 21:00 08/02/16 20:59 07/08/16 07:00 1.25 MG Levofloxacin/Prmx (Levaquin / D5W/ Premixed D5W) 150 ml @ 100 mls/hr DAILY@1600 IV 07/03/16 16:30 07/10/16 16:29 07/07/16 17:53 100 MLS/HR Levalbuterol 1.25 mg 1.25 mg Q1HWA PRN INH 07/05/16 12:00 08/04/16 11:59 07/07/16 17:56 1.25 MG Lorazepam/Syringe (Ativan Inj/ Syringe) 1.75 ml @ 1 mls/min Q4H PRN IV 07/06/16 12:45 08/05/16 12:44 Lorazepam (Ativan Tab) 1 mg TID PO 07/06/16 14:00 08/05/16 13:59 07/07/16 20:31 1 MG Lorazepam 2 mg 2 mg Q4 PRN IV 07/06/16 10:45 08/05/16 10:44 07/07/16 21:39 2 MG Methylprednisolone Sodium Succinate/ Syringe (Solu-Medrol IV/ Syringe) 0.64 ml @ 1.5 mls/min Q8@0400,1200,2000 IV 07/07/16 12:30 08/06/16 12:29 07/08/16 04:39 1.5 MLS/MIN Objective Vital Signs Date Time Temp Pulse Resp B/P Pulse Ox O2 Delivery O2 Flow Rate FiO2 07/08/16 07:52 36.3 72 20 159/114 100 Nasal Cannula 3.0 07/08/16 07:00 75 20 95 Nasal Cannula 3.0 07/08/16 04:00 Nasal Cannula 4.0 BiPAP 07/08/16 03:24 36.6 70 22 120/86 96 Nasal Cannula 3.0 07/08/16 02:02 78 20 95 Nasal Cannula 3.0 07/08/16 00:27 Nasal Cannula 4.0 BiPAP 07/07/16 23:27 36.8 81 20 147/95 97 Nasal Cannula 3.0 07/07/16 20:00 Nasal Cannula 4.0 BiPAP 07/07/16 19:59 73 96 2.0 07/07/16 19:58 73 22 96 BiPAP/CPAP 2.0 07/07/16 19:45 36.6 96 24 141/92 95 Nasal Cannula 3.0 07/07/16 17:45 72 22 98 Nasal Cannula 3.0 07/07/16 16:00 Humidified Oxygen 4.0 BiPAP 07/07/16 15:21 36.6 84 22 150/94 96 Nasal Cannula 3.0 07/07/16 14:16 72 20 98 Nasal Cannula 3.0 07/07/16 12:00 Humidified Oxygen 4.0 BiPAP 07/07/16 11:12 36.5 93 28 168/105 92 Nasal Cannula 5.0 BiPAP 07/07/16 11:05 92 20 94 Nasal Cannula 4.0 Physical Exam General Appearance: + mild distress (mild respiratory distress) Respiratory/Chest: + respiratory distress (mild), + accessory muscle use ( improving), + wheezing Cardiovascular: regular rate, rhythm, no edema, no gallop, no JVD, no murmur Abdomen: normal bowel sounds, non tender, soft, + hernia (ventral hernia, non- reducible, non-tender) Extremities: normal inspection, no pedal edema Assessment and Plan This is a 55 year old male with severe COPD presents with COPD exacerbation Acute on Chronic Respiratory Failure Acute COPD exacerbation 07/08 Severe COPD; FEV1 ~ 22% Solu-medrol tapered yesterday to 40mg q8 continue Levaquin daily Daliresp daily nebulizers - requiring this almost every hour nocturnal Bipap Ativan around the clock and PRN taper steroids down in 1-2 days appreciate pulm input 07/07 will taper steroids to 40mg q8 continue Levaquin, continue Daliresp nebulizers around the clock and PRN 07/06 appreciate pulmonary input complicated and very agitated patient; will change around benzo use PO Ativan TID and IV PRN Ativan continue Levaquin daily, Daliresp daily Solumedrol 60mg q8 patient is requiring neb treatments hourly 07/05 appreciate pulm input continue Levaquin and steroids as prescribed for now stopped Dulera as patient cannot use it currently with breathing status Bipap and oxygen support continue Daliresp nebulizer treatments around the clock and as needed - should get these prior to eating will have new regimen prior to discharge in terms of inhalers, possible abx. chronically to get on transplant list, there a list of requirements - appreciate pulmonary input on these 07/04 appreciate pulm input continue solu-medrol abx changed to Levaquin IV ativan for anxiety as needed daliresp added nebs as needed will need ICS+LABA+LAMA on discharge may need azithro as well 07/03 patient with very severe COPD; predicted FEV1 of 22% Uses continuous O2 at home at 2L with increases in requirements with activity Uses Dulera + Spiriva On chronic prednisone, alternating between 10mg and 5mg While in-patient, he has been started on solu-medrol 60mg q8 IV Ativan for anxiety as needed nebulizers around the clock and as needed Patient is not tolerating Bipap Added daliresp daily May need to switch Dulera to newer LABA will consider starting on chronic macrolide would appreciate pulmonary input - consult placed DVT ppx subq heparin FULL CODE
[2016-07-08] MEDS: LEVALBUTEROL 1.25MG/3ML NEB INH PRN (11:38)
[2016-07-08] MEDS: LEVOFLOXACIN 750MG / D5W IV SCH (16:00)
[2016-07-09] VITALS (11 sets, daily range): BP systolic 127–156; BP diastolic 84–98; PULSE 76–101; TEMP 36.4–36.9; O2SAT 92–97
[2016-07-09] MEDS: IPRATROPIUM BROMIDE NEB SOLN 0.02% 2.5 ML VIAL INH SCH ×4 (01:57→19:13)
[2016-07-09] MEDS: LEVALBUTEROL 1.25MG/0.5ML NEB INH SCH ×4 (01:57→19:13)
[2016-07-09] MEDS: METHYLPREDNISOLONE IV 40 MG in SYRINGE 0 ML IV SCH (04:47)
[2016-07-09] MEDS: HEPARIN SOD 5000 UNIT/0.5 ML CARP SQ SCH ×3 (06:01→20:59)
[2016-07-09 06:35] LABS: HEMATOCRIT 47.1 % (42-52); MEAN CELL VOLUME 93.8 fL (80-100); MEAN CORPUSCULAR HEMOGLOBIN 30.9 pg (25-34); MEAN CORPUSCULAR HGB CONC 32.9 g/dl (32-36); MEAN PLATELET VOLUME 10.8 fL (7.4-10.4); PLATELET COUNT 211 K/uL (130-400); RED BLOOD COUNT 5.02 M/uL (4.7-6.1); WHITE BLOOD COUNT 11.83 K/uL (4.8-10.8)
[2016-07-09 07:12] LABS: BUN/CREATININE RATIO 27.6 (10-20); CALCIUM 9.1 mg/dl (8.5-10.1); CREATININE 0.91 mg/dl (0.60-1.40); POTASSIUM 4.3 mmol/L (3.5-5.1)
--- NOTE | 2016-07-09 08:43 | PROGRESS NOTE ---
DATE: 07/09/2016 HISTORY OF PRESENT ILLNESS: The patient continues to complain of severe dyspnea. He had a breathing treatment 70 minutes before I went in the room. He states he has not had one for hours. We check the EMR. He just received a treatment. I spoke with the respiratory therapist and they confirm it. He just complains of severe dyspnea related to end-stage lung disease. He does not think the pulmonary rehab helped. He denies cough, significant sputum production. He is refusing to wear BiPAP. He has been angry with the nursing personnel as well. He has not had any pain. He is refusing to eat breakfast until he has another breathing treatment, but he is not to do at least for 4 hours even though the medication has been written every hour that should be given just p.r.n. because of the risk of developing paradoxical response and cardiac arrhythmias from the albuterol. PHYSICAL EXAMINATION: VITAL SIGNS: Stable and he is afebrile. His oxygen saturation is 94% on 3 liters, blood pressure 149/85. His respiratory rate is 20. I\T\O is 941 in and 1800 out. Weight 111.2 kg. Nurses' notes reviewed. HEENT: Unremarkable. He has a small posterior pharynx. No adenopathy is noted. There is severe hyperinflation of the thorax. HEART: Regular rate and rhythm. Heart sounds are distant. LUNGS: Reveal decreased breath sounds bilaterally with a few wheezes in the mid lung field on the right side posteriorly. ABDOMEN: Soft and obese, nontender. EXTREMITIES: He has no cyanosis, clubbing or edema. IMAGING DATA: CT scan of the thorax on the revealed no evidence of pulmonary embolism. No consolidation was noted. There is a bit of bronchial thickening of the bronchus intermedius. LABORATORY DATA: White count is 11.8, hemoglobin 15.5. Blood gas on the revealed pH 7.39, pCO2 of 50, pO2 of 100 on 3.5 liters. CO2 is elevated at 39 and on the electrolytes was 33 on the , suggesting worsening hypercapnia. Urinalysis, coagulation profile, influenza A and B and hepatitis C antibody screen are all negative. The electrocardiogram reveals sinus tachycardia with some baseline artifact, right atrial enlargement. Otherwise, it is unremarkable. 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 RECOMMENDATIONS: At this point, I would continue on the methylprednisolone or he could be placed on 40 mg of prednisone. It appears he has gold class 4 lung disease and 40 mg of prednisone is indicated by the literature. Continue on the Xopenex and he could have that q. 1 hour p.r.n. I would consider stopping Levaquin since I do not find any evidence of infection. Good DVT prophylaxis, antireflux regimen is recommended as well. He may respond to a long-acting bronchodilator institution of Symbicort 160/4.5 two puffs b.i.d. would be helpful. He may respond to Incruse 1 inhalation daily or Spiriva Respimat 1 puff 4 times a day in place of the Atrovent q. 6 hours.
[2016-07-09] MEDS: ROFLUMILAST 500 MCG TAB PO SCH (09:00)
[2016-07-09 09:29] LABS: ISTAT CREATININE 0.9 mg/dl (0.6-1.3); ISTAT HEMOGLOBIN 17.7 g/dl (14.0-18.0); ISTAT IONIZED CALCIUM 1.16 mmol/l (1.12-1.32)
[2016-07-09] MEDS: NICOTINE 21 MG/24 HR TDSY TD SCH (09:50)
[2016-07-09] MEDS: ASPIRIN 81 MG ECTAB PO SCH (09:50)
[2016-07-09] MEDS: PANTOprazole SOD 40 MG TAB PO SCH (09:50)
[2016-07-09] MEDS: CHOLECALCIFEROL 1000 INTER.UNIT TAB PO SCH (09:50)
[2016-07-09] MEDS: LORAZEPAM 1 MG TAB PO SCH ×3 (09:51→20:13)
--- NOTE | 2016-07-09 11:05 | Progress Note ---
Subjective Date of Service: Jul 09, 2016. Subjective Pt evaluation today including: conversation w/ patient, conversation w/ family , physical exam, lab review, review of studies, review of inpatient medication list Saw/examined the patient in room 233 He is doing much better today; denies any significant shortness of breath Feels much closer to baseline today Problem List Medical Problems: (1) COPD exacerbation Status: Acute Review of Systems Respiratory: + cough, + dyspnea on exertion, + shortness of breath, + sputum, + wheezing Cardiac: No chest pain, No edema, No palpitations Abdomen: No diarrhea, No nausea, No pain, No vomiting Medications Current Inpatient Medications Medications (Trade) Dose Ordered Sig/Ember Route Start Time Stop Time Status Last Admin Dose Admin Heparin Sodium (Porcine) (Heparin Sq 5000 Unit/0.5ml) 5,000 unit Q8 SQ 07/03/16 06:00 08/02/16 05:59 07/09/16 06:01 5,000 UNIT Acetaminophen (Tylenol Tab) 650 mg Q4H PRN PO 07/02/16 23:00 08/01/16 22:59 Ondansetron HCl (Zofran Inj) 4 mg Q6H PRN IV 07/02/16 23:00 08/01/16 22:59 Aspirin (Ecotrin Tab) 81 mg DAILY PO 07/03/16 09:00 08/02/16 08:59 07/09/16 09:50 81 MG Nicotine (Nicoderm Cq 21MG Patch) 1 patch DAILY TD 07/03/16 09:00 08/02/16 08:59 07/09/16 09:50 1 PATCH Cholecalciferol (Vitamin D Tab) 2,000 inter.unit DAILY PO 07/03/16 09:00 08/02/16 08:59 07/09/16 09:50 2,000 INTER.UNIT Pantoprazole Sodium (Protonix Tab) 40 mg QAM PO 07/03/16 09:00 08/02/16 08:59 07/09/16 09:50 40 MG Roflumilast (Daliresp Tab) 500 mcg DAILY PO 07/03/16 09:00 08/02/16 08:59 07/09/16 09:00 500 MCG Ipratropium [place] (Atrovent 0.02% 0.5MG/2.5ML Neb) 0.5 mg Q6R INH 07/03/16 21:00 08/02/16 20:59 07/09/16 07:32 0.5 MG Levalbuterol (Xopenex 1.25MG/ 0.5ML Neb) 1.25 mg Q6R INH 07/03/16 21:00 08/02/16 20:59 07/09/16 07:32 1.25 MG Levalbuterol 1.25 mg 1.25 mg Q1HWA PRN INH 07/05/16 12:00 08/04/16 11:59 07/08/16 11:38 1.25 MG Lorazepam/Syringe (Ativan Inj/ Syringe) 1.75 ml @ 1 mls/min Q4H PRN IV 07/06/16 12:45 08/05/16 12:44 Lorazepam (Ativan Tab) 1 mg TID PO 07/06/16 14:00 08/05/16 13:59 07/09/16 09:51 1 MG Lorazepam 2 mg 2 mg Q4 PRN IV 07/06/16 10:45 08/05/16 10:44 07/08/16 16:48 2 MG Methylprednisolone Sodium Succinate/ Syringe (Solu-Medrol IV/ Syringe) 0.64 ml @ 1.5 mls/min Q8@0400,1200,2000 IV 07/07/16 12:30 08/06/16 12:29 07/09/16 04:47 1.5 MLS/MIN Objective Vital Signs Date Time Temp Pulse Resp B/P Pulse Ox O2 Delivery O2 Flow Rate FiO2 07/09/16 08:10 36.5 87 28 154/98 92 Nasal Cannula 3.0 07/09/16 08:00 Humidified Oxygen 3.0 BiPAP 07/09/16 07:33 76 20 94 Nasal Cannula 3.0 07/09/16 04:00 Nasal Cannula 3.0 BiPAP 07/09/16 03:05 36.5 80 23 149/85 94 Nasal Cannula 3.0 07/09/16 01:58 85 20 94 Nasal Cannula 3.0 07/09/16 00:00 Nasal Cannula 3.0 BiPAP 07/08/16 23:52 36.6 81 24 147/96 96 Nasal Cannula 3.0 07/08/16 20:00 Nasal Cannula 3.0 BiPAP 07/08/16 19:53 36.5 95 24 148/96 95 Nasal Cannula 3.0 07/08/16 19:35 94 20 95 Nasal Cannula 3.0 07/08/16 18:26 96 20 95 Nasal Cannula 3.0 07/08/16 16:10 104 22 95 Nasal Cannula 3.0 07/08/16 16:00 Humidified Oxygen 4.0 BiPAP 07/08/16 15:27 36.9 90 22 137/85 96 Nasal Cannula 3.0 07/08/16 14:06 105 20 94 Nasal Cannula 3.0 07/08/16 12:00 Humidified Oxygen 4.0 BiPAP 07/08/16 11:38 89 20 96 Nasal Cannula 3.0 07/08/16 11:09 36.7 79 18 135/93 97 Nasal Cannula 3.0 Physical Exam General Appearance: + mild distress (mild respiratory distress, improving) Respiratory/Chest: + respiratory distress, + accessory muscle use, + wheezing Cardiovascular: regular rate, rhythm, no edema, no murmur Abdomen: normal bowel sounds, non tender, soft Extremities: normal inspection, no pedal edema Laboratory Results Last 24 Hours Test 07/09/16 05:55 White Blood Count 11.83 K/uL Red Blood Count 5.02 M/uL Hemoglobin 15.5 g/dL Hematocrit 47.1 % Mean Corpuscular Volume 93.8 fL Mean Corpuscular Hemoglobin 30.9 pg Mean Corpuscular Hemoglobin Concent 32.9 g/dl RDW Standard Deviation 45.7 fL RDW Coefficient of Variation 13.3 % Platelet Count 211 K/uL Mean Platelet Volume 10.8 fL Sodium Level 141 mmol/L Potassium Level 4.3 mmol/L Chloride Level 96 mmol/L Carbon Dioxide Level 39 mmol/L Anion Gap 6.0 mmol/L Blood Urea Nitrogen 25 mg/dl Creatinine 0.91 mg/dl Est Creatinine Clear Calc Drug Dose 114.1 ml/min Estimated GFR () 110.3 Estimated GFR (Non- 95.2 BUN/Creatinine Ratio 27.6 Random Glucose 121 mg/dl Calcium Level 9.1 mg/dl Assessment and Plan This is a 55 year old male with severe COPD presents with COPD exacerbation Acute on Chronic Respiratory Failure Acute COPD exacerbation 07/09 Severe COPD, FEV1 ~ 22% appreciate pulm input transitioned Solu-medrol to 40mg Prednisone today Continue Daliresp d/c'd Levaquin may need Azithromycin 3 days/week will d/c with Spiriva + Symbicort + PRN albuterol and breathing treatments d/c planning for 07/10 07/08 Severe COPD; FEV1 ~ 22% Solu-medrol tapered yesterday to 40mg q8 continue Levaquin daily Daliresp daily nebulizers - requiring this almost every hour nocturnal Bipap Ativan around the clock and PRN taper steroids down in 1-2 days appreciate pulm input 07/07 will taper steroids to 40mg q8 continue Levaquin, continue Daliresp nebulizers around the clock and PRN 07/06 appreciate pulmonary input complicated and very agitated patient; will change around benzo use PO Ativan TID and IV PRN Ativan continue Levaquin daily, Daliresp daily Solumedrol 60mg q8 patient is requiring neb treatments hourly 07/05 appreciate pulm input continue Levaquin and steroids as prescribed for now stopped Dulera as patient cannot use it currently with breathing status Bipap and oxygen support continue Daliresp nebulizer treatments around the clock and as needed - should get these prior to eating will have new regimen prior to discharge in terms of inhalers, possible abx. chronically to get on transplant list, there a list of requirements - appreciate pulmonary input on these 07/04 appreciate pulm input continue solu-medrol abx changed to Levaquin IV ativan for anxiety as needed daliresp added nebs as needed will need ICS+LABA+LAMA on discharge may need azithro as well 07/03 patient with very severe COPD; predicted FEV1 of 22% Uses continuous O2 at home at 2L with increases in requirements with activity Uses Dulera + Spiriva On chronic prednisone, alternating between 10mg and 5mg While in-patient, he has been started on solu-medrol 60mg q8 IV Ativan for anxiety as needed nebulizers around the clock and as needed Patient is not tolerating Bipap Added daliresp daily May need to switch Dulera to newer LABA will consider starting on chronic macrolide would appreciate pulmonary input - consult placed DVT ppx subq heparin FULL CODE
[2016-07-09] MEDS: LEVALBUTEROL 1.25MG/3ML NEB INH PRN ×2 (11:38→21:06)
[2016-07-09] MEDS: LORAZEPAM 2 MG/ML 1 ML VIAL IV PRN (15:23)
[2016-07-10] VITALS (7 sets, daily range): BP systolic 131–134; BP diastolic 91–93; PULSE 80–111; TEMP 36.3–36.8; O2SAT 91–97
[2016-07-10] MEDS: LORAZEPAM 2 MG/ML 1 ML VIAL IV PRN (02:19)
[2016-07-10] MEDS: IPRATROPIUM BROMIDE NEB SOLN 0.02% 2.5 ML VIAL INH SCH ×2 (02:44→07:33)
[2016-07-10] MEDS: LEVALBUTEROL 1.25MG/0.5ML NEB INH SCH ×2 (02:44→07:33)
[2016-07-10] MEDS: HEPARIN SOD 5000 UNIT/0.5 ML CARP SQ SCH (06:21)
[2016-07-10 06:35] LABS: HEMATOCRIT 45.3 % (42-52); MEAN CELL VOLUME 91.5 fL (80-100); MEAN CORPUSCULAR HEMOGLOBIN 30.9 pg (25-34); MEAN CORPUSCULAR HGB CONC 33.8 g/dl (32-36); MEAN PLATELET VOLUME 10.7 fL (7.4-10.4); PLATELET COUNT 203 K/uL (130-400); RED BLOOD COUNT 4.95 M/uL (4.7-6.1); WHITE BLOOD COUNT 11.48 K/uL (4.8-10.8)
[2016-07-10 07:07] LABS: BUN/CREATININE RATIO 36.4 (10-20); CALCIUM 8.5 mg/dl (8.5-10.1); CREATININE 0.72 mg/dl (0.60-1.40); MAGNESIUM 2.8 mg/dl (1.8-2.4); POTASSIUM 4.3 mmol/L (3.5-5.1)
[2016-07-10] MEDS: ASPIRIN 81 MG ECTAB PO SCH (07:55)
[2016-07-10] MEDS: PANTOprazole SOD 40 MG TAB PO SCH (07:55)
[2016-07-10] MEDS: CHOLECALCIFEROL 1000 INTER.UNIT TAB PO SCH (07:55)
[2016-07-10] MEDS: LORAZEPAM 1 MG TAB PO SCH (07:55)
[2016-07-10] MEDS: ROFLUMILAST 500 MCG TAB PO SCH (07:55)
[2016-07-10] MEDS: NICOTINE 21 MG/24 HR TDSY TD SCH (07:56)
--- NOTE | 2016-07-10 08:47 | PULMONARY PROGRESS NOTE ---
DATE: 07/10/2016 The patient is considerably improved today and he states he feels much better. He has received breathing treatments appropriately, had used his BiPAP for about 7 hours last night and states he feels considerably improved today. We discussed the use of BiPAP at great length. He states he agrees to use that now at night since he knows it feels better and he feels better. We discussed smoking cessation. He states he has not smoked recently and is using a Nicoderm patch. He needs to be set up as an outpatient with Dr. Pitts for evaluation for transplant probably in [place]. VITAL SIGNS: Stable and he is afebrile. Blood pressure 134/93, oxygen saturation 95% on 3 liters. I O, 860 in and 950 out. Weight 106.6 kilograms which probably is stable, although sometimes it is done on a built-in bed scale. According to nurses' notes, he had a good night last night. MEDICATIONS: Reviewed. PHYSICAL EXAMINATION: HEENT: Unremarkable. No thrush noted. NECK: There is no neck vein distention or HJR. HEART: Regular rate and rhythm. No murmurs are heard. LUNGS: Reveal decreased breath sounds, otherwise are clear. No fremitus is noted. ABDOMEN: Soft, nontender. EXTREMITIES: He has no cyanosis, clubbing or edema. The CT scan of the thorax from 07/02/2016 is noted. LABORATORY DATA: White count 11.48, hemoglobin 15.3. Chemistry profile looks good with a CO2 of 40. His magnesium is 2.8. Urinalysis was unremarkable. IMPRESSION: 1. Respiratory failure with hypercapnia. 2. Severe end-stage chronic obstructive pulmonary disease. RECOMMENDATIONS: 1. Taper the prednisone fairly quickly over about 7-10 days. 2. Continue on the Xopenex and the institution of long-acting beta agonist with an inhaled steroid would be helpful. Dulera 200/5 two puffs b.i.d. or Symbicort 160/4.5 two puffs b.i.d. would be recommended. 3. Follow with Dr. Pitts in several weeks. 4. I might consider stopping the Daliresp. He has not had much bronchitis and it can cause some despondency. He needs to be set up for evaluation at [place] for lung transplant as well. [facility]
--- NOTE | 2016-07-10 09:56 | Progress Note ---
Subjective Date of Service: Jul 10, 2016. Subjective Pt evaluation today including: conversation w/ patient, conversation w/ family , physical exam, lab review, review of studies, review of inpatient medication list Saw/examined the patient in room 233 Doing much better today; in no acute respiratory distress Back to baseline with breathing/cough/respiratory status Problem List Medical Problems: (1) COPD exacerbation Status: Acute Review of Systems Constitutional: No chills, No fever Respiratory: + cough, + see HPI, + shortness of breath (chronic), No dyspnea at rest, No dyspnea on exertion, No hemoptysis, No sputum, No wheezing Cardiac: No chest pain, No edema, No palpitations Abdomen: No pain Medications Current Inpatient Medications Medications (Trade) Dose Ordered Sig/Ember Route Start Time Stop Time Status Last Admin Dose Admin Heparin Sodium (Porcine) (Heparin Sq 5000 Unit/0.5ml) 5,000 unit Q8 SQ 07/03/16 06:00 08/02/16 05:59 07/10/16 06:21 5,000 UNIT Acetaminophen (Tylenol Tab) 650 mg Q4H PRN PO 07/02/16 23:00 08/01/16 22:59 Ondansetron HCl (Zofran Inj) 4 mg Q6H PRN IV 07/02/16 23:00 08/01/16 22:59 Aspirin (Ecotrin Tab) 81 mg DAILY PO 07/03/16 09:00 08/02/16 08:59 07/10/16 07:55 81 MG Nicotine (Nicoderm Cq 21MG Patch) 1 patch DAILY TD 07/03/16 09:00 08/02/16 08:59 07/10/16 07:56 1 PATCH Cholecalciferol (Vitamin D Tab) 2,000 inter.unit DAILY PO 07/03/16 09:00 08/02/16 08:59 07/10/16 07:55 2,000 INTER.UNIT Pantoprazole Sodium (Protonix Tab) 40 mg QAM PO 07/03/16 09:00 08/02/16 08:59 07/10/16 07:55 40 MG Roflumilast (Daliresp Tab) 500 mcg DAILY PO 07/03/16 09:00 08/02/16 08:59 07/10/16 07:55 500 MCG Ipratropium [place] (Atrovent 0.02% 0.5MG/2.5ML Neb) 0.5 mg Q6R INH 07/03/16 21:00 08/02/16 20:59 07/10/16 07:33 0.5 MG Levalbuterol (Xopenex 1.25MG/ 0.5ML Neb) 1.25 mg Q6R INH 07/03/16 21:00 08/02/16 20:59 07/10/16 07:33 1.25 MG Levalbuterol 1.25 mg 1.25 mg Q1HWA PRN INH 07/05/16 12:00 08/04/16 11:59 07/09/16 21:06 1.25 MG Lorazepam/Syringe (Ativan Inj/ Syringe) 1.75 ml @ 1 mls/min Q4H PRN IV 07/06/16 12:45 08/05/16 12:44 Lorazepam (Ativan Tab) 1 mg TID PO 07/06/16 14:00 08/05/16 13:59 07/10/16 07:55 1 MG Lorazepam (Ativan Inj) 2 mg Q4 PRN IV 07/06/16 10:45 08/05/16 10:44 07/10/16 02:19 2 MG Prednisone (PredniSONE TAB) 40 mg DAILY PO 07/10/16 09:00 08/09/16 08:59 07/10/16 07:56 40 MG Objective Vital Signs Date Time Temp Pulse Resp B/P Pulse Ox O2 Delivery O2 Flow Rate FiO2 07/10/16 08:00 Nasal Cannula 3.0 07/10/16 07:37 36.8 80 18 134/93 95 3.0 07/10/16 07:33 81 18 94 Nasal Cannula 4.0 07/10/16 04:28 Humidified Oxygen 3.0 BiPAP 07/10/16 03:52 36.4 89 20 131/91 94 Nasal Cannula 3.0 07/10/16 02:44 81 18 97 Nasal Cannula 94.0 07/10/16 00:34 36.3 80 19 132/91 97 BiPAP 07/10/16 00:15 BiPAP 07/09/16 21:06 101 22 97 Nasal Cannula 3.0 07/09/16 20:30 Humidified Oxygen 3.0 BiPAP 07/09/16 20:30 36.6 100 22 156/84 94 Nasal Cannula 3.0 07/09/16 19:13 101 16 93 Nasal Cannula 3.0 07/09/16 16:26 91 16 94 Nasal Cannula 3.0 07/09/16 16:21 Humidified Oxygen 3.0 BiPAP 07/09/16 15:25 36.4 89 22 133/94 94 Nasal Cannula 3.0 07/09/16 12:00 Humidified Oxygen 3.0 BiPAP 07/09/16 11:38 76 16 94 Nasal Cannula 3.0 07/09/16 11:23 36.9 91 24 127/88 92 Nasal Cannula 3.0 Physical Exam General Appearance: no apparent distress Respiratory/Chest: lungs clear, no respiratory distress, no accessory muscle use, + decreased breath sounds Cardiovascular: regular rate, rhythm, no edema, no murmur Abdomen: + hernia (ventral; non-reducible, non-tender) Laboratory Results Last 24 Hours Test 07/10/16 05:41 White Blood Count 11.48 K/uL Red Blood Count 4.95 M/uL Hemoglobin 15.3 g/dL Hematocrit 45.3 % Mean Corpuscular Volume 91.5 fL Mean Corpuscular Hemoglobin 30.9 pg Mean Corpuscular Hemoglobin Concent 33.8 g/dl RDW Standard Deviation 43.8 fL RDW Coefficient of Variation 13.2 % Platelet Count 203 K/uL Mean Platelet Volume 10.7 fL Sodium Level 141 mmol/L Potassium Level 4.3 mmol/L Chloride Level 99 mmol/L Carbon Dioxide Level 40 mmol/L Anion Gap 2.0 mmol/L Blood Urea Nitrogen 26 mg/dl Creatinine 0.72 mg/dl Est Creatinine Clear Calc Drug Dose 141.1 ml/min Estimated GFR () 122.6 Estimated GFR (Non- 105.8 BUN/Creatinine Ratio 36.4 Random Glucose 115 mg/dl Calcium Level 8.5 mg/dl Magnesium Level 2.8 mg/dl Assessment and Plan This is a 55 year old male with severe COPD presents with COPD exacerbation Acute on Chronic Respiratory Failure Acute COPD exacerbation 07/10 will send home with prednisone 40mg and then taper down back to home dose ( alternating 5mg and 10mg) d/c with Symbicort, Spiriva, Daliresp outpatient f/u with primary care and pulmonology 07/09 Severe COPD, FEV1 ~ 22% appreciate pulm input transitioned Solu-medrol to 40mg Prednisone today Continue Daliresp d/c'd Levaquin may need Azithromycin 3 days/week will d/c with Spiriva + Symbicort + PRN albuterol and breathing treatments d/c planning for 07/10 07/08 Severe COPD; FEV1 ~ 22% Solu-medrol tapered yesterday to 40mg q8 continue Levaquin daily Daliresp daily nebulizers - requiring this almost every hour nocturnal Bipap Ativan around the clock and PRN taper steroids down in 1-2 days appreciate pulm input 07/07 will taper steroids to 40mg q8 continue Levaquin, continue Daliresp nebulizers around the clock and PRN 07/06 appreciate pulmonary input complicated and very agitated patient; will change around benzo use PO Ativan TID and IV PRN Ativan continue Levaquin daily, Daliresp daily Solumedrol 60mg q8 patient is requiring neb treatments hourly 07/05 appreciate pulm input continue Levaquin and steroids as prescribed for now stopped Dulera as patient cannot use it currently with breathing status Bipap and oxygen support continue Daliresp nebulizer treatments around the clock and as needed - should get these prior to eating will have new regimen prior to discharge in terms of inhalers, possible abx. chronically to get on transplant list, there a list of requirements - appreciate pulmonary input on these 07/04 appreciate pulm input continue solu-medrol abx changed to Levaquin IV ativan for anxiety as needed daliresp added nebs as needed will need ICS+LABA+LAMA on discharge may need azithro as well 07/03 patient with very severe COPD; predicted FEV1 of 22% Uses continuous O2 at home at 2L with increases in requirements with activity Uses Dulera + Spiriva On chronic prednisone, alternating between 10mg and 5mg While in-patient, he has been started on solu-medrol 60mg q8 IV Ativan for anxiety as needed nebulizers around the clock and as needed Patient is not tolerating Bipap Added daliresp daily May need to switch Dulera to newer LABA will consider starting on chronic macrolide would appreciate pulmonary input - consult placed DVT ppx subq heparin FULL CODE
[2016-07-10] MEDS ORDERED: PRT40 PO ×2 (09:59→13:29)
[2016-07-10] MEDS ORDERED: DLR500 PO ×2 (09:59→13:29)
[2016-07-10] MEDS ORDERED: PRED10TA PO ×2 (09:59→13:29)
[2016-07-10] MEDS ORDERED: SYMIN160 INH (09:59)
--- NOTE | 2016-07-10 10:16 | Discharge Instructions ---
Discharge Instructions Date of Service Jul 10, 2016. Admission Reason for Admission: Copd Exacerbation Discharge Discharge Diagnosis / Problem: Severe COPD/Acute COPD exacerbation Discharge Goals Goal(s): Decrease discomfort, Improve function, Diagnostic testing, Therapeutic intervention Activity Recommendations Activity Limitations: resume your previous activity . Instructions / Follow-Up Instructions / Follow-Up Please follow-up with Dr. Pitts, pulmonology Please follow-up with primary care doctor - you will get a phone call with an appointment date and time You will be taking prednisone; take 40mg for two days (07/11, 07/12), 30mg (07/13, 07/14), 20mg (07/15, 07/16), then go back to doing your usual prednisone dose Continue Dulera Continue Spiriva You will be prescribed Daliresp, take this once a day Also prescribed Protonix, which helps with reflux symptoms - take this once daily continue breathing treatments and oxygen Current Hospital Diet Patient's current hospital diet: AHA Diet (Heart Healthy) Discharge Diet Recommended Diet: Regular Diet Pending Studies Studies pending at discharge: no Medical Emergencies . Who to Call and When: Medical Emergencies: If at any time you feel your situation is an emergency, please call 911 immediately. . Non-Emergent Contact Non-Emergency issues call your: Primary Care Provider . . "Provider Documentation" section prepared by Jimbo Greer. VTE Core Measure Inpt VTE Proph given/why not?: Unfractionated heparin SQ
--- NOTE | 2016-07-10 10:18 | Discharge Summary ---
Discharge Summary Date of Service Jul 10, 2016. Discharge Summary Admission Date: Jul 02, 2016 at 22:59 Discharge Date: Jul 10, 2016 Discharge Disposition: Home with services Principal Diagnosis: Severe COPD/Acute COPD exacerbation Medication Reconciliation New Medications: Prednisone Tab (Prednisone) 10 Mg Tab 10 MG PO DAILY for 30 Days, #30 TAB Pantoprazole (Pantoprazole Sodium) 40 Mg Tab 40 MG PO QAM for 30 Days, #30 TAB Roflumilast (Daliresp) 500 Mcg Tab 500 MCG PO DAILY for 20 Days, #20 TAB Continued Medications: Albuterol Hfa (Ventolin Hfa) 200 Puffs/37063 Mcg Aers 2-4 PUFFS INH Q6H, #1 INHALER Aspirin (Aspirin Ec) 81 Mg Tab 81 MG PO DAILY Cholecalciferol (Vitamin D3) 2,000 Unit Cap 1 CAP PO DAILY, CAP Ipratropium-Albuterol (Duoneb) 3 Ml Nebu 1 TREATMENT INH QID, INHA Mometasone Furoate-Formoterol (Dulera 200/5 Mcg) 1 Aer Aer 2 PUFFS INH BID for 30 Days, #1 INHALER (This prescription has been renewed) Nicotine (Nicoderm Cq 21MG Patch) 1 Patch Tdsy 1 PATCH TD DAILY Prednisone (Prednisone) 5 Mg Tab 5 MG PO Q2D EVEN NUMBER DAYS OF THE MONTH Prednisone Tab (Prednisone) 10 Mg Tab 10 MG PO Q2D ODD NUMBER DAYS OF THE MONTH Tiotropium [place] (Spiriva Handihaler) 30 Puff/540 Mcg Aerp 1 CAP INH DAILY, INHALER Admission Information Physical Exam (per Admitting): This is a 55 year old male with severe COPD presents with COPD exacerbation Acute on Chronic Respiratory Failure Acute COPD exacerbation 07/10 will send home with prednisone 40mg and then taper down back to home dose ( alternating 5mg and 10mg) d/c with Symbicort, Spiriva, Daliresp outpatient f/u with primary care and pulmonology 07/09 Severe COPD, FEV1 ~ 22% appreciate pulm input transitioned Solu-medrol to 40mg Prednisone today Continue Daliresp d/c'd Levaquin may need Azithromycin 3 days/week will d/c with Spiriva + Symbicort + PRN albuterol and breathing treatments d/c planning for 07/10 07/08 Severe COPD; FEV1 ~ 22% Solu-medrol tapered yesterday to 40mg q8 continue Levaquin daily Daliresp daily nebulizers - requiring this almost every hour nocturnal Bipap Ativan around the clock and PRN taper steroids down in 1-2 days appreciate pulm input 07/07 will taper steroids to 40mg q8 continue Levaquin, continue Daliresp nebulizers around the clock and PRN 07/06 appreciate pulmonary input complicated and very agitated patient; will change around benzo use PO Ativan TID and IV PRN Ativan continue Levaquin daily, Daliresp daily Solumedrol 60mg q8 patient is requiring neb treatments hourly 07/05 appreciate pulm input continue Levaquin and steroids as prescribed for now stopped Dulera as patient cannot use it currently with breathing status Bipap and oxygen support continue Daliresp nebulizer treatments around the clock and as needed - should get these prior to eating will have new regimen prior to discharge in terms of inhalers, possible abx. chronically to get on transplant list, there a list of requirements - appreciate pulmonary input on these 07/04 appreciate pulm input continue solu-medrol abx changed to Levaquin IV ativan for anxiety as needed daliresp added nebs as needed will need ICS+LABA+LAMA on discharge may need azithro as well 07/03 patient with very severe COPD; predicted FEV1 of 22% Uses continuous O2 at home at 2L with increases in requirements with activity Uses Dulera + Spiriva On chronic prednisone, alternating between 10mg and 5mg While in-patient, he has been started on solu-medrol 60mg q8 IV Ativan for anxiety as needed nebulizers around the clock and as needed Patient is not tolerating Bipap Added daliresp daily May need to switch Dulera to newer LABA will consider starting on chronic macrolide would appreciate pulmonary input - consult placed DVT ppx subq heparin FULL CODE Hospital Course 55-year-old male with very severe COPD having exacerbation: #1 COPD Exacerbation: At this time I will place the patient on Xopenex/Atrovent nebulizers every 6 hours and then continue Xopenex every 2 hours when necessary dyspnea. Also continue patient's current Solu-Medrol dosing. As the patient has COPD exacerbation we'll treat as if he has pneumonia and/or bronchiectasis at this time and initiate levofloxacin 750 mg IV every day discontinue his current doxycycline. I've had a long discussion with the patient and his about the importance of BiPAP. I've also spoke to the respiratory therapist and we will reinitiate BiPAP therapy. Also continue oxygen therapy with maintaining SaO2 between 88 and 92%. #2 Chronic COPD: When patient is able to perform a proper inhaler technique will reinitiate: Inhaled steroids, LAMA, LABA and continue Daliresp. We'll also consider initiating azithromycin daily and/or 3 times a day. And continuing oxygen support. #3 Pulmonary Transplant: I have spoken to the [facility] pulmonary transplant team. The patient has not been placed on the pulmonary transplant list at this time. He is been evaluated by Dr. Marylin Hughes and was informed he has multiple goals to achieve: BMI: < 35 Pulmonary rehabilitation Medication compliance Attempt to wean off prednisone Attempt to wean off nicotine patch Smoking cessation program No marijuana either inhaled and/or orally consumed The patient was initially evaluated by the transplant team in August 2015 but has failed to follow-up with the team. (Dr. Otoniel HUGHES) Margarita Pastor after hours Total time spent on discharge = 45 minutes This includes examination of the patient, discharge planning, medication reconciliation, and communication with other providers. Discharge Instructions Please follow-up with Dr. Pitts, pulmonology Please follow-up with primary care doctor - you will get a phone call with an appointment date and time You will be taking prednisone; take 40mg for two days (07/11, 07/12), 30mg (07/13, 07/14), 20mg (07/15, 07/16), then go back to doing your usual prednisone dose Change Dulera to Symbicort Continue Spiriva You will be prescribed Daliresp, take this once a day Also prescribed Protonix, which helps with reflux symptoms - take this once daily continue breathing treatments and oxygen
[2016-07-10] MEDS ORDERED: MOME200A INH (13:29)
== END 2016-07-10 13:40 | disposition home health service (06) | DRG 189 ==
LOC: ENRESERVTM → ENRESERVDT → C.EDB 19:40 → C.2T 22:59
PROVIDERS: ADMIT Internal Medicine; ATTEND Family Medicine
DX: J96.20 Acute and chronic respiratory failure, unspecified whether with hypoxia or hypercapnia (principal); J44.1 Chronic obstructive pulmonary disease with (acute) exacerbation; F17.200 Nicotine dependence, unspecified, uncomplicated; G47.30 Sleep apnea, unspecified; E66.9 Obesity, unspecified; Z68.34 Body mass index [BMI] 34.0-34.9, adult; Z99.81 Dependence on supplemental oxygen

== ENCOUNTER 2017-03-04 09:44 | Day surgery (SDC) | payer BC ==
[2017-02-28 09:30] VITALS: BMI 32.0
[~2017-03-04] VITALS: Ht 182.9 cm; Wt 106.8 kg
[~2017-03-04 09:44] MED LIST changes: -ALBU1AER9 INH; +ASPI81TA28 PO; +ATROPINE SULFATE 0.1 MG/ML 5ML SYR IV PRN; -BUPR150T7 PO; +CEFAZOLIN 2000MG IV PUSH 10 ML IV SCH; +CHOL2000 PO; +EpHEDrine SULFATE INJ 50 MG/ML AMP IV PRN; +HYDROmorphone INJ 1 MG/ML SYR IV PRN; +LABETALOL HCL IV 5 MG/ML 20ML IV PRN; +LACTATED RINGER'S 1000ML 1,000 ML IV SCH; +MEPERIDINE HCL 25 MG/ML CARP IV PRN; -NICO4GUM PO; +ONDANSETRON INJ 2 MG/ML 2 ML VIAL IV PRN; +OXGN; +PRED10TA PO; +ROFL1TAB5 PO; +SPRIN/30 INH; +VNTHFA/IN INH
[2017-03-04 10:28] VITALS: Ht 182.9 cm; Wt 106.8 kg
[2017-03-04] MEDS ORDERED: FENTANYL CITRATE INJ 50 MCG/1 ML 2 ML VIAL ONE ×2 (11:14→12:22)
[2017-03-04] MEDS ORDERED: MIDAZOLAM HCL 1 MG/ML 2ML VIAL ONE (11:14)
[2017-03-04] MEDS ORDERED: PROPOFOL IV EMULSION 10 MG/ML 20 ML VIAL IV ONE (11:14)
[2017-03-04] MEDS ORDERED: LIDOCAINE HCL 2% 2 ML VIAL (20MG/ML) ONE ×3 (11:14→13:16)
[2017-03-04] MEDS ORDERED: ROCURONIUM BROMIDE 10 MG/ML 5 ML VIAL IV ONE ×3 (11:14→12:45)
--- NOTE | 2017-03-04 11:37 | History & Physical Bridge Note ---
H&P Re-Evaluation Bridge Note: I have examined the patient, reviewed the History & Physical and in the interval since the performance of the History & Physical I have noted the following changes of clinical significance: No changes noted
[2017-03-04] MEDS ORDERED: LIDOCAINE HCL 1% 20 ML VIAL ONE (11:57)
[2017-03-04] MEDS ORDERED: BUPIVACAINE 0.5 % 5 MG/1 ML MPF 30ML VIAL ONE (11:58)
[2017-03-04] MEDS ORDERED: HYDROCORTISONE SOD SUCCINATE 100 MG/2 ML VIAL ONE (12:25)
[2017-03-04] MEDS ORDERED: NEOSTIGMINE METHYLSULFATE 5 MG/5 ML SYR ONE (13:09)
[2017-03-04] MEDS ORDERED: GLYCOPYRROLATE INJ 0.2 MG/ML VIAL ONE (13:09)
--- NOTE | 2017-03-04 13:40 | [facility] Post Operative Brief Note ---
Immediate Operative Summary Operative Date Mar 04, 2017. Pre-Operative Diagnosis Recurrent Ventral Incisional Hernia x2 Post-Operative Diagnosis Recurrent Ventral Incisional Hernia x2 Procedure(s) Performed Open Repair of Recurrent Ventral Incisional Hernia with Mesh Surgeon Dr. Noriega [employer] Care Manager Surgeon(s) Sonali Duvall PA-C Estimated Blood Loss 10 cc Findings 2 ventral hernia, at lateral, right size hernia size is 3x3cm, left side hernia is 2x2cm, Fluids (cc crystalloids) 1100ml Specimens A: hernia sac Drains none Anesthesia general Complication(s) None Disposition Recovery Room / PACU
[2017-03-04] MEDS ORDERED: OXYC-57 PO (13:53)
--- NOTE | 2017-03-04 13:57 | Discharge Instructions ---
Discharge Instructions Date of Service Mar 04, 2017. Admission Reason for Admission: Recurrent Ventral Incisional Hernia Discharge Discharge Diagnosis / Problem: same Discharge Goals Goal(s): Decrease discomfort, Improve function Activity Recommendations Activity Limitations: as noted below No heavy lifting over 10 pounds for 4-6 weeks or until surgeon says so No strenuous activity until cleared by surgeon No submerging incision underwater for 2 weeks (no bathing, swimming, or hot tubs ) No driving while taking narcotic pain medication or until you are pain free . Instructions / Follow-Up Instructions / Follow-Up You may shower in 3 days, sponge bath and wash hair in meantime. Keep dressing on for three days and then remove. You have surgical kathy on incision , they will be removed at follow up visit Wear abdominal binder daily for abdominal support, you may take the binder off at night time Follow-up in surgical office in 1-2 weeks, please call office at [phone] if you do not already have an appointment Current Hospital Diet Patient's current hospital diet: Discharge Diet Recommended Diet: Regular Diet Procedures Procedures Performed: Open Repair of Recurrent Ventral Incisional Hernia with Mesh Pending Studies Studies pending at discharge: no Medical Emergencies . Who to Call and When: Medical Emergencies: If at any time you feel your situation is an emergency, please call 911 immediately. . Non-Emergent Contact Non-Emergency issues call your: Primary Care Provider, Surgeon Call Non-Emergent contact if: you have a fever, temperature is above 101.5, your pain is not controlled, your pain is worsening, wound has increased drainage, wound has increased redness, wound has increased pain . "Provider Documentation" section prepared by Soanli Duvall. . VTE Core Measure Inpt VTE Proph given/why not?: SCD's [place] Drug Monitoring Program Search Results: patient reviewed within database, no issues identified
[2017-03-04] MEDS: FENTANYL CITRATE INJ 50 MCG/1 ML 2 ML VIAL IV PRN ×4 (14:00→14:32)
[2017-03-04] MEDS ORDERED: OXYCODONE/ACETAMINOPHEN 5-325 TAB PO PRN ×2 (14:00)
[2017-03-04] MEDS ORDERED: MoRPHine SULFATE 2 MG/ML CARP IV PRN ×2 (14:00)
[2017-03-04] MEDS ORDERED: MoRPHine SULFATE 4 MG/ML 1 ML CARP\\VIAL IV PRN (14:00)
[2017-03-04] MEDS ORDERED: ONDANSETRON INJ 2 MG/ML 2 ML VIAL IV PRN (14:00)
[2017-03-04] MEDS ORDERED: ACETAMINOPHEN 325 MG TAB PO PRN (14:00)
--- NOTE | 2017-03-04 14:24 | OPERATIVE REPORT ---
DATE OF OPERATION: 03/04/2017 PREOPERATIVE DIAGNOSIS: Recurrent ventral hernia x2. POSTOPERATIVE DIAGNOSIS: Same. OPERATION: Open repair recurrent ventral hernia x2 with mesh. SURGEON: Andrzej Noriega MD SOFTWARE PERFORMANCE ENGINEER: Sonali Duvall PA-C ANESTHESIA: General. ESTIMATED BLOOD LOSS: About 10 mL. FINDINGS: Two recurrent ventral hernias on the right side of the midline, hernia size sized about 3 x 3 cm and on the left side, the hernia size is 2 x 2 cm. COMPLICATIONS: None. INDICATIONS FOR THE PROCEDURE: This is a 56-year-old gentleman who presented with 2 abdominal hernias and the patient had a colon surgery in the past. Also, the patient had one time hernia repair. Now the patient thinks the hernia is recurrent and requires the open repair hernia with mesh. I did talk to the patient about the benefit and risk, alternate procedure. I indicated the risks may include but not limited such as bleeding, infection, hernia recurrence, any complications related to hernia mesh, DVT, myocardial infarction, stroke, pulmonary failure, may need a longtime intubation, even and injury to bowel. The patient understands. He signed informed consent and I answered all questions. The patient has severe COPD, on home O2 oxygen. DETAILS OF PROCEDURE: We brought the patient to the OR, put the patient on the supine position on the OR table. The patient received SCDs on bilateral legs to prevent DVT. The patient received 2 grams Ancef IV for prophylactic antibiotic. The patient received general anesthesia without difficulty. The abdomen was prepped and draped in routine sterile fashion. After a timeout, the patient has 2 hernias on the right side and the left side just above umbilical, so we make a transverse incision on the abdomen and then we mobilized the hernia sac, found the patient had a right-sided hernia size about 3 x 3 cm and also there are old mesh near the hernia, so we opened the hernia sac and completely removed it from the abdominal cavity back to the abdominal cavity. Then we resected the hernia sac and then we moved on the left side the hernia sac. We found the patient had 2 x 2 cm hernia sac on the neck and we opened the hernia sac and removed the hernia sac, reduced all the hernia sac contents back into the abdominal cavity only omental fat. They were at least 2 hernias so close and we make sure that 2 hernias connected to the each other . Based on the patient's fascial layer is strong, the patient had hernia repair possible in the neck with mesh and then we used #1 Ethibond to close the hernia primarily and no tension interrupted. At this moment, we mobilized the outside layer of the external fascial layer and we chose the 2-0 Prolene mesh to lie on the external fascia. The mesh was sized about 15 x 9 cm, tried to overlap 4 cm in each direction. Hemostasis was obtained. Then we used 2-0 Prolene to fix the hernia on the external fascia interrupted and the mesh fit nicely, no limitation, covering the 2 hernias and then we closed the subcutaneous layer by using 2-0 Vicryl continuous running, closed skin by using staple. Then, we put the dressing on. The patient tolerated the procedure well. All the instruments, needle and sponge count correct x2 at the end of the case. After the procedure, the patient transferred to recovery room in stable condition. After the procedure, I did talk to the patient and about the OR finding and procedure we did. She understands. Also, we gave patient the postop care instruction after and before the procedure. They understand. I attest to the content of the Intraoperative Record and any orders documented therein. Any exceptions are noted below. CESARD
--- NOTE | 2017-03-04 14:42 | Anesthesiology Progress Note ---
Anesthesia Post Op Note Date & Time Mar 04, 2017 at 14:41 Vital Signs Pain Intensity: 2 Vital Signs Past 12 Hours Date Time Temp Pulse Resp B/P (MAP) Pulse Ox O2 Delivery O2 Flow Rate FiO2 03/04/17 14:26 66 11 03/04/17 14:26 66 11 128/86 98 03/04/17 14:21 65 13 119/79 99 03/04/17 14:21 66 13 03/04/17 14:17 138/80 03/04/17 14:16 66 19 03/04/17 14:16 67 19 100 03/04/17 14:11 64 22 127/83 99 03/04/17 14:11 63 22 03/04/17 14:06 68 25 118/82 100 03/04/17 14:06 68 25 03/04/17 14:01 66 22 135/87 100 03/04/17 14:01 66 22 03/04/17 13:57 136/89 03/04/17 13:56 70 21 98 03/04/17 13:56 69 21 03/04/17 13:51 73 19 148/95 03/04/17 13:51 92 19 03/04/17 13:47 158/102 03/04/17 13:46 36.9 85 20 148/95 97 Oxymask 10 Notes Mental Status: alert / awake / arousable, participated in evaluation Pt Amnestic to Procedure: Yes Nausea / Vomiting: adequately controlled Pain: adequately controlled Airway Patency, RR, SpO2: stable & adequate BP & HR: stable & adequate Hydration State: stable & adequate Anesthetic Complications: no major complications apparent
[2017-03-04 15:00] VITALS: BP 125/83; PULSE 79; TEMP 36.6; O2SAT 97
[2017-03-04] MEDS ORDERED: OXYCODONE/ACETAMINOPHEN 5-325 TAB ONE (15:25)
[2017-03-04 15:30] VITALS: BP 122/71; PULSE 57; TEMP 36.3; O2SAT 97
[2017-03-04 16:04] VITALS: BP 125/76; PULSE 61; TEMP 36.5; O2SAT 98
[2017-03-04 16:10] VITALS: BP 125/76; PULSE 61; TEMP 36.5; O2SAT 98
[2017-03-05] MEDS ORDERED: CEFAZOLIN SOD 2000MG/10 ML IV PUSH IV ONE (06:00)
== END 2017-03-04 16:20 | disposition home or self-care (01) ==
LOC: C.ACU 09:44
PROVIDERS: ATTEND Surgery
DX: K43.2 Incisional hernia without obstruction or gangrene (principal); J44.9 Chronic obstructive pulmonary disease, unspecified; E66.9 Obesity, unspecified; Z68.31 Body mass index [BMI] 31.0-31.9, adult; Z99.81 Dependence on supplemental oxygen; Z87.891 Personal history of nicotine dependence; Z79.899 Other long term (current) drug therapy

== ENCOUNTER 2019-07-31 14:14 | Inpatient (IN) ==
[2019-07-31] MEDS ORDERED: methylPREDNISolone 125 MG/2 ML VIAL IV STA (14:21)
[2019-07-31] MEDS ORDERED: SODIUM CHLORIDE 0.9% 500 ML IV ONE ×2 (14:21→15:48)
[2019-07-31] MEDS ORDERED: ALBUT/IPRATROP 3MG/0.5MG NEB 3 ML VIAL NEB ONE (14:21)
[2019-07-31] MEDS ORDERED: LORazepam 1 MG/2 ML VIAL IV STA (14:27)
--- NOTE | 2019-07-31 14:34 | Emergency Department Note ---
Impression & Plan Acute on chronic respiratory failure with hypoxia and hypercapnia, Non-ST elevated myocardial infarction (non-STEMI), Acute respiratory acidosis, On home oxygen therapy, Elevated lactic acid level ED Provider Note NAME: NHUNG YANEZ AGE: 58 SEX: M ARRIVES VIA: Ambulance INFORMANT: Patient, ED PROVIDER(S): Allen Ulrich MD CHIEF COMPLAINT: Shortness of breath PLAN: Disposition: Admit MEDICAL DECISION MAKING: The patient is a pleasant 58-year-old gentleman with a past medical history of COPD on 2 L home O2 who presents emergency department with acute on chronic respiratory failure where he developed significant wheezing and tightness with shortness of breath this morning not responding to his nebulizers, EMS was called to the home early this morning where he refused transport was again contacted this afternoon for worsening symptoms was found to be on his hands and knees and cyanotic initially placed on 100% O2 given repeat nebulizer treatments and 1 g of magnesium. Patient denies any recent fevers, chills, new coug h/congestion, chest pain, nausea/vomiting, or diarrhea. He reports he has not been leaving his home and has not left [place] or been in contact with any individuals known to be infected with COVID-19. On arrival the patient is in severe respiratory distress with respiratory rate in the upper 30s with labored breathing and accessory muscle use. On exam the patient is diminished throughout with prolonged expiratory phase with scant wheezes. Patient was immediately placed on BiPAP with continuous nebulizer with treatment of Solu- Medrol with improvement in his work of breathing and respiratory rate into the 15-20 range. Initial EKG was significant artifact due to patient's movement/wo rk of breathing. There is new septal infarct noted however no overt ST elevation or depression. A repeat EKG after the patient clinically improved again demonstrates septal infarct with nonspecific T wave abnormality in the inferior and anterior lateral leads. However no overt ST elevation or dep ression. WBC 12.7, nonspecific. H/H and platelets within normal limits. VBG with hypercapnia with PCO2 of 74 and associated acidemia of 7.21. Lactate 3.7 however chemistry without metabolic acidosis. Electrolytes unremarkable. AST elevated at 60, nonspecific. Initial troponin 4.3 suggestive of an STEMI related to demand ischemia in the setting of the patient's acute on chronic respiratory failure with hypercapnia and likely prolonged hypoxia given EMS report. BNP 1k, nonspecific and chest x-ray without evidence of volume overload. Given the patient's respiratory failure blood cultures were drawn upon arrival and are pending. However given his lack of fever or leukocytosis will defer empiric antibiotics at this time. However we will treat with doxycycline for COPD exacerbation. Patient continued to remain improved and comfortable upon reevaluation. I did review the findings with the patient and his at the bedside and they were agreeable with plan for admission. Case w as discussed with [facility], who will evaluate the patient for admission. We agreed to proceed with treatment with heparin at this time given his troponin elevation. He was also given aspirin. Triage Nursing notes reviewed and agree them. Additional history obtained from EMS Prior medical records reviewed Vital Signs: reviewed and remarkable for no significant abnormalities Differential diagnosis: Reactive airway disease, pneumonia, pneumothorax, COPD, CHF, infections, cardiac ischemia, pulmonary embolism, musculoskeletal, gastrointestinal, as well as other pathologies. ER treatment provided: See below. Diagnostics interpreted by me: ECG #1: Sinus tachycardia, 119 bpm, normal axis, septal infarct which appears new from prior (07/02/2016), no overt ST elevation or depression, QTC 467, QRS 76. Artifact due to patient's movement/work of breathing. ECG #2: Sinus tachycardia, 105 bpm, PACs, septal infarct redemonstrated, non specific T wave abnormality in the inferior and anterior lateral leads. No overt ST elevation or depression. Cardiac Monitoring: Sinus tachycardia, 105 bpm, PACs. Laboratory studies: See below Imaging studies: XR chest 1V portable CLINICAL HISTORY: 58 years-old Male presenting with SEPSIS. TECHNIQUE: Portable upright AP view of the chest was obtained. COMPARISON: 11/30/2014. FINDINGS: Atherosclerosis of the aortic arch. Cardiac silhouette mildly enlarged. Double density in the right retrocardiac region. Minimal irregular bibasilar opacities. Blunting of costophrenic sulci likely relates to hyperinflation. No pneumothorax or large effusion. Degenerative changes of the thoracic spine. Upper abdomen normal. IMPRESSION: 1. Findings suggest emphysema. No focal infiltrate to suggest pneumonia. 2. Mild cardiomegaly. No significant volume overload or advanced congestive change. Consultation(s): [facility], who evaluate the patient for admission. HPI: The patient is a pleasant 58-year-old gentleman with a past medical history of COPD on 2 L home O2 who presents emergency department with acute on chronic respiratory failure where he developed significant wheezing and tightness with shortness of breath this morning not responding to his nebulizers, EMS was called to the home early this morning where he refused transport was again contacted this afternoon for worsening symptoms was found to be on his hands and knees and cyanotic initially placed on 100% O2 given repeat nebulizer treatments and 1 g of magnesium. Patient denies any recent fevers, chills, new cough/congestion, chest pain, nausea/vomiting, or diarrhea. He reports he has not been leaving his home and has not left [place] or been in contact with any individuals known to be infected with COVID-19. ROS: See above HPI for pertinent positives & negatives. A total of 10 systems reviewed and were otherwise negative. PAST MEDICAL HISTORY:See Below PAST SURGICAL HISTORY:See Below FAMILY HISTORY:See Below SOCIAL HISTORY:See Below HOME MEDICATIONS:See Below ALLERGIES:See Below VITALS:See Below PHYSICAL EXAMINATION: GENERAL: Awake, alert, ill-appearing, uncomfortable in severe respiratory distress. HENT: Normocephalic, atraumatic. Oropharynx with dry mucous membranes and otherwise unremarkable. EYES: Normal conjunctiva. Sclera non-icteric. NECK: Supple. No nuchal rigidity. FROM. No JVD. RESPIRATORY: Severe respiratory distress with respiratory rate in the upper 30s with labored breathing and accessory muscle use. Diminished throughout with prolonged expiratory phase with scant wheezes. CARDIAC: Tachycardic rate, normal rhythm. Extremities warm and well perfused. Pulses equal. ABDOMEN: Soft, non-distended. No tenderness to palpation. No rebound or guarding. No masses. RECTAL: Deferred. MUSCULOSKELETAL: Chest examination reveals no tenderness. The back is symmetrical on inspection without obvious abnormality. There is no CVA tenderness to palpation. No joint edema. LOWER EXTREMITIES: Calves are equal size bilaterally and non-tender. Scant bilateral lower extremity edema. No discoloration. NEURO: Normal sensorium. No sensory or motor deficits noted. SKIN: No rash or jaundice noted. ED COURSE: Critical Care: I have personally spent greater than 95 minutes of critical care time in the direct management of this patient. This includes bedside care, interpretation of diagnostic studies, and testing, discussion with consultants, patient, and family members, and other required patient management activities. This 95 minutes is in excess of all separately billable procedures. Allen Ulrich MD Past Med/Surg History Medical History Anxiety Asthma Chronic back pain Chronic obstructive pulmonary disease COPD exacerbation (Inactive) Depression Diverticular disease On home oxygen therapy Sleep apnea Surgical History History of bowel resection DIVERTICULITIS History of herniorrhaphy X 5 Social History Preferred Language: [place] Communication Ability: Effective Grab Hooker Required: No Beliefs That Will Affect Care: None Current Living Situation: Spouse Current Living Situation Comment: [facility] Feels Safe at Home: Yes Smoking Status: Current some day smoker Tobacco Type: cigarettes ; Second Hand Exposure: Yes (ON OCC) ; Hx Alcohol Use: No Hx Substance Use: No Allergies Allergies Allergy/AdvReac Type Severity Reaction Status Date / Time No Known Drug Allergies Allergy Verified 07/31/19 15:17 Home Meds Home Medications Medication Instructions Recorded Confirmed aspirin [Aspir-81] 81 mg PO QAM 01/17/18 07/31/19 cholecalciferol (vitamin D3) 1,000 unit PO QAM 01/17/18 07/31/19 [Vitamin D3] bupropion HCl 150 mg 24 hr tablet, 300 mg PO QAM tab 06/09/19 07/31/19 extended release escitalopram oxalate 10 mg tablet 20 mg PO QAM tab 06/09/19 07/31/19 fluticasone propion-salmeterol 2 puff INHALATION Q12 07/31/19 07/31/19 [Advair HFA] ibuprofen 200 mg PO Q6H PRN 07/31/19 07/31/19 tiotropium bromide [Spiriva 2 puff INHALATION QDL 07/31/19 07/31/19 Respimat] Previous Rx's Medication Instructions Recorded albuterol sulfate 90 mcg/actuation 2 puff INHALATION Q4 PRN #18 gm 01/08/19 aerosol inhaler prednisone 10 mg tablet 5 mg PO QAM #90 tab 04/28/19 ipratropium 0.5 mg-albuterol 3 mg 3 ml INHALATION Q6H PRN #360 ml 06/08/19 (2.5 mg base)/3 mL nebulization soln roflumilast 500 mcg tablet 500 mcg PO QAM #30 tab 07/20/19 Results & Data (ED) Vital Signs Vital Signs - 24 hr 07/31/19 14:21 07/31/19 14:27 07/31/19 14:31 Temperature 37.1 C Temperature Source Oral Pulse Rate 128 H 110 H Pulse Rate [Right Apical] 104 H Pulse Rate from SpO2 Sensor Respiratory Rate 30 H 16 22 Respiratory Effort / Characteristics Spontaneous Accessory Muscle Use Labored Short of Breath Spontaneous Respiratory Depth Normal Respiratory Pattern Tachypnea Blood Pressure 124/95 Blood Pressure [Right Arm] Blood Pressure Mean 104 Blood Pressure Mean [Right Arm] Pulse Oximetry 100 100 100 Oxygen Delivery Method BiPAP BiPAP Oxygen Flow Rate 15 Fraction of Inspired Oxygen 60 50 50 SaO2/FiO2 Ratio Sepsis Recent Fever Within 48 Hours No Sepsis New/Unexplained Change in Mental Status No Sepsis Action Taken by Nursing No Action Required 07/31/19 14:42 07/31/19 15:00 07/31/19 15:15 Temperature Temperature Source Pulse Rate 107 H 108 H Pulse Rate [Right Apical] 113 H Pulse Rate from SpO2 Sensor 100 H 107 H Respiratory Rate 22 30 H 18 Respiratory Effort / Characteristics Respiratory Depth Respiratory Pattern Blood Pressure 140/94 127/95 Blood Pressure [Right Arm] 116/91 Blood Pressure Mean 99 118 Blood Pressure Mean [Right Arm] 99 Pulse Oximetry 100 97 100 Oxygen Delivery Method BiPAP BiPAP BiPAP Oxygen Flow Rate Fraction of Inspired Oxygen 50 60 SaO2/FiO2 Ratio 200 Sepsis Recent Fever Within 48 Hours Sepsis New/Unexplained Change in Mental Status Sepsis Action Taken by Nursing 07/31/19 15:31 07/31/19 15:46 07/31/19 16:02 Temperature Temperature Source Pulse Rate 105 H 107 H 102 H Pulse Rate [Right Apical] Pulse Rate from SpO2 Sensor 103 H 101 H 102 H Respiratory Rate 25 H 19 21 Respiratory Effort / Characteristics Respiratory Depth Respiratory Pattern Blood Pressure 95/53 L 120/92 112/92 Blood Pressure [Right Arm] Blood Pressure Mean 55 96 96 Blood Pressure Mean [Right Arm] Pulse Oximetry 100 99 100 Oxygen Delivery Method BiPAP BiPAP Oxygen Flow Rate Fraction of Inspired Oxygen 60 60 SaO2/FiO2 Ratio Sepsis Recent Fever Within 48 Hours Sepsis New/Unexplained Change in Mental Status Sepsis Action Taken by Nursing 07/31/19 16:31 07/31/19 16:46 07/31/19 17:02 Temperature Temperature Source Pulse Rate 109 H 108 H 105 H Pulse Rate [Right Apical] Pulse Rate from SpO2 Sensor 108 H 107 H 104 H Respiratory Rate 26 H 21 23 Respiratory Effort / Characteristics Respiratory Depth Respiratory Pattern Blood Pressure 145/103 H 121/92 140/40 L Blood Pressure [Right Arm] Blood Pressure Mean 120 109 43 Blood Pressure Mean [Right Arm] Pulse Oximetry 100 98 100 Oxygen Delivery Method Nasal Cannula Nasal Cannula Nasal Cannula Oxygen Flow Rate 2 2 2 Fraction of Inspired Oxygen SaO2/FiO2 Ratio Sepsis Recent Fever Within 48 Hours Sepsis New/Unexplained Change in Mental Status Sepsis Action Taken by Nursing 07/31/19 17:30 07/31/19 17:47 07/31/19 18:02 Temperature Temperature Source Pulse Rate 103 H 103 H 100 H Pulse Rate [Right Apical] Pulse Rate from SpO2 Sensor 104 H 103 H 93 H Respiratory Rate 21 20 16 Respiratory Effort / Characteristics Respiratory Depth Respiratory Pattern Blood Pressure 119/89 119/87 146/86 H Blood Pressure [Right Arm] Blood Pressure Mean 100 92 95 Blood Pressure Mean [Right Arm] Pulse Oximetry 100 99 97 Oxygen Delivery Method Nasal Cannula Nasal Cannula Nasal Cannula Oxygen Flow Rate 2 2 2 Fraction of Inspired Oxygen SaO2/FiO2 Ratio Sepsis Recent Fever Within 48 Hours Sepsis New/Unexplained Change in Mental Status Sepsis Action Taken by Nursing 07/31/19 18:16 07/31/19 18:30 07/31/19 18:46 Temperature Temperature Source Pulse Rate 94 H 99 H 99 H Pulse Rate [Right Apical] Pulse Rate from SpO2 Sensor 92 H 89 96 H Respiratory Rate 22 20 21 Respiratory Effort / Characteristics Respiratory Depth Respiratory Pattern Blood Pressure 113/80 118/86 120/78 Blood Pressure [Right Arm] Blood Pressure Mean 84 102 94 Blood Pressure Mean [Right Arm] Pulse Oximetry 98 98 98 Oxygen Delivery Method Nasal Cannula Nasal Cannula Nasal Cannula Oxygen Flow Rate 2 2 2 Fraction of Inspired Oxygen SaO2/FiO2 Ratio Sepsis Recent Fever Within 48 Hours Sepsis New/Unexplained Change in Mental Status Sepsis Action Taken by Nursing 07/31/19 19:00 07/31/19 19:30 Temperature Temperature Source Pulse Rate 105 H 94 H Pulse Rate [Right Apical] Pulse Rate from SpO2 Sensor Respiratory Rate 25 H 24 Respiratory Effort / Characteristics Respiratory Depth Respiratory Pattern Blood Pressure 131/92 110/90 Blood Pressure [Right Arm] Blood Pressure Mean 110 Blood Pressure Mean [Right Arm] Pulse Oximetry 97 96 Oxygen Delivery Method Nasal Cannula Nasal Cannula Oxygen Flow Rate 2 2 Fraction of Inspired Oxygen SaO2/FiO2 Ratio Sepsis Recent Fever Within 48 Hours Sepsis New/Unexplained Change in Mental Status Sepsis Action Taken by Nursing Laboratory Data Attestation: I reviewed the patient's lab results. Result diagrams: 07/31/19 14:46 07/31/19 14:46 Lab Results 07/31/19 07/31/19 07/31/19 Range/Units 14:22 14:28 14:34 WBC (4.8-10.8) K/uL RBC (4.7-6.1) M/uL Hgb (14.0-18.0) g/dL POC Hgb (14.0-18.0) g/dl Hct (42-52) % POC Hct (42-52) % MCV (80-100) fL MCH (25-34) pg MCHC (32-36) g/dL RDW Std Deviation (36.4-46.3) fL RDW Coeff of Nevin (11.5-14.5) % Plt Count (130-400) K/uL MPV (7.4-10.4) fL Immature Gran % (Auto) % Neut % (Auto) % Lymph % (Auto) % Wharton % (Auto) % Eos % (Auto) % Baso % (Auto) % Immature Gran # (Auto) (0.00-0.02) K/uL Neut # (Auto) (1.4-6.5) K/uL Lymph # (Auto) (1.2-3.4) K/uL Wharton # (Auto) (0.11-0.59) K/uL Eos # (Auto) (0-0.5) K/uL Baso # (Auto) (0-0.2) K/uL PT (9.0-12.0) Seconds INR (0.9-1.1) APTT (21.0-31.0) Seconds PTT Ratio VBG pH 7.21 L (7.36-7.41) VBG pCO2 74 H (38-50) mmHg VBG pO2 32 mmHg VBG HCO3 29 mmol/L VBG O2 Saturation < 60.0 % VBG Base Excess -1.0 mEq/L Barometric Pressure 724.0 mm/Hg POC Sodium (135-144) mmol/L Sodium (136-145) mmol/L POC Potassium (3.3-5.0) mmol/L Potassium (3.5-5.1) mmol/L POC Chloride (101-112) mmol/L Chloride (98-107) mmol/L Carbon Dioxide (21-32) mmol/L POC Total CO2 (24-31) mEq/l Anion Gap (3-11) POC Anion Gap (16-25) mmol/L POC BUN (7-18) mg/dl BUN (7-18) mg/dl Creatinine (0.6-1.4) mg/dl POC Creatinine (0.6-1.3) mg/dl Est Cr Clr Drug Dosing ml/min Est GFR ( Amer) Est GFR (Non-Af Amer) BUN/Creatinine Ratio (10-20) Glucose (70-99) mg/dl POC Glucose (other) (70-99) mg/dl Lactate 3.7 H* (0.4-2.0) mmol/L Calcium (8.5-10.1) mg/dl POC Ioniz Calcium Gerardo (1.12-1.32) mmol/l Phosphorus (2.5-4.9) mg/dl Magnesium (1.8-2.4) mg/dl Total Bilirubin (0.2-1) mg/dl Direct Bilirubin (0-0.2) mg/dl AST (15-37) U/L ALT (12-78) U/L Alkaline Phosphatase (45-117) U/L Troponin I (0-0.045) ng/ml NT-Pro-B Natriuret Pep (0-900) pg/ml Total Protein (6.4-8.2) gm/dl Albumin (3.4-5.0) gm/dl Globulin (2.5-4.0) gm/dl Albumin/Globulin Ratio (0.9-2) Influenza Type A (PCR) Neg for Influ A (Neg) Influenza Type B (PCR) Neg for Influ B (Neg) 07/31/19 07/31/19 07/31/19 Range/Units 14:36 14:46 14:46 WBC 12.78 H (4.8-10.8) K/uL RBC 4.93 (4.7-6.1) M/uL Hgb 15.6 (14.0-18.0) g/dL POC Hgb 16.0 (14.0-18.0) g/dl Hct 46.3 (42-52) % POC Hct 47 (42-52) % MCV 93.9 (80-100) fL MCH 31.6 (25-34) pg MCHC 33.7 (32-36) g/dL RDW Std Deviation 46.8 H (36.4-46.3) fL RDW Coeff of Nevin 13.6 (11.5-14.5) % Plt Count 253 (130-400) K/uL MPV 9.3 (7.4-10.4) fL Immature Gran % (Auto) 0.7 % Neut % (Auto) 70.8 % Lymph % (Auto) 19.9 % Wharton % (Auto) 7.0 % Eos % (Auto) 1.4 % Baso % (Auto) 0.2 % Immature Gran # (Auto) 0.09 H (0.00-0.02) K/uL Neut # (Auto) 9.04 H (1.4-6.5) K/uL Lymph # (Auto) 2.54 (1.2-3.4) K/uL Wharton # (Auto) 0.90 H (0.11-0.59) K/uL Eos # (Auto) 0.18 (0-0.5) K/uL Baso # (Auto) 0.03 (0-0.2) K/uL PT 10.2 (9.0-12.0) Seconds INR 1.0 (0.9-1.1) APTT 24.3 (21.0-31.0) Seconds PTT Ratio 0.9 VBG pH (7.36-7.41) VBG pCO2 (38-50) mmHg VBG pO2 mmHg VBG HCO3 mmol/L VBG O2 Saturation % VBG Base Excess mEq/L Barometric Pressure mm/Hg POC Sodium 138 (135-144) mmol/L Sodium (136-145) mmol/L POC Potassium 4.1 (3.3-5.0) mmol/L Potassium (3.5-5.1) mmol/L POC Chloride 100 L (101-112) mmol/L Chloride (98-107) mmol/L Carbon Dioxide (21-32) mmol/L POC Total CO2 27 (24-31) mEq/l Anion Gap (3-11) POC Anion Gap 16.0 (16-25) mmol/L POC BUN 18 (7-18) mg/dl BUN (7-18) mg/dl Creatinine (0.6-1.4) mg/dl POC Creatinine 1.1 (0.6-1.3) mg/dl Est Cr Clr Drug Dosing ml/min Est GFR ( Amer) Est GFR (Non-Af Amer) BUN/Creatinine Ratio (10-20) Glucose (70-99) mg/dl POC Glucose (other) 134 H (70-99) mg/dl Lactate (0.4-2.0) mmol/L Calcium (8.5-10.1) mg/dl POC Ioniz Calcium Gerardo 1.15 (1.12-1.32) mmol/l Phosphorus (2.5-4.9) mg/dl Magnesium (1.8-2.4) mg/dl Total Bilirubin (0.2-1) mg/dl Direct Bilirubin (0-0.2) mg/dl AST (15-37) U/L ALT (12-78) U/L Alkaline Phosphatase (45-117) U/L Troponin I (0-0.045) ng/ml NT-Pro-B Natriuret Pep (0-900) pg/ml Total Protein (6.4-8.2) gm/dl Albumin (3.4-5.0) gm/dl Globulin (2.5-4.0) gm/dl Albumin/Globulin Ratio (0.9-2) Influenza Type A (PCR) (Neg) Influenza Type B (PCR) (Neg) 07/31/19 07/31/19 07/31/19 Range/Units 14:46 16:59 16:59 WBC (4.8-10.8) K/uL RBC (4.7-6.1) M/uL Hgb (14.0-18.0) g/dL POC Hgb (14.0-18.0) g/dl Hct (42-52) % POC Hct (42-52) % MCV (80-100) fL MCH (25-34) pg MCHC (32-36) g/dL RDW Std Deviation (36.4-46.3) fL RDW Coeff of Nevin (11.5-14.5) % Plt Count (130-400) K/uL MPV (7.4-10.4) fL Immature Gran % (Auto) % Neut % (Auto) % Lymph % (Auto) % Wharton % (Auto) % Eos % (Auto) % Baso % (Auto) % Immature Gran # (Auto) (0.00-0.02) K/uL Neut # (Auto) (1.4-6.5) K/uL Lymph # (Auto) (1.2-3.4) K/uL Wharton # (Auto) (0.11-0.59) K/uL Eos # (Auto) (0-0.5) K/uL Baso # (Auto) (0-0.2) K/uL PT (9.0-12.0) Seconds INR (0.9-1.1) APTT (21.0-31.0) Seconds PTT Ratio VBG pH (7.36-7.41) VBG pCO2 (38-50) mmHg VBG pO2 mmHg VBG HCO3 mmol/L VBG O2 Saturation % VBG Base Excess mEq/L Barometric Pressure mm/Hg POC Sodium (135-144) mmol/L Sodium 139 (136-145) mmol/L POC Potassium (3.3-5.0) mmol/L Potassium 4.1 (3.5-5.1) mmol/L POC Chloride (101-112) mmol/L Chloride 106 (98-107) mmol/L Carbon Dioxide 27 (21-32) mmol/L POC Total CO2 (24-31) mEq/l Anion Gap 6.0 (3-11) POC Anion Gap (16-25) mmol/L POC BUN (7-18) mg/dl BUN 17 (7-18) mg/dl Creatinine 1.29 (0.6-1.4) mg/dl POC Creatinine (0.6-1.3) mg/dl Est Cr Clr Drug Dosing 79.1 ml/min Est GFR ( Amer) 70.9 Est GFR (Non-Af Amer) 61.1 BUN/Creatinine Ratio 13.3 (10-20) Glucose 133 H (70-99) mg/dl POC Glucose (other) (70-99) mg/dl Lactate 2.9 H* (0.4-2.0) mmol/L Calcium 8.7 (8.5-10.1) mg/dl POC Ioniz Calcium Gerardo (1.12-1.32) mmol/l Phosphorus 4.5 (2.5-4.9) mg/dl Magnesium 2.7 H (1.8-2.4) mg/dl Total Bilirubin 0.4 (0.2-1) mg/dl Direct Bilirubin < 0.1 (0-0.2) mg/dl AST 60 H (15-37) U/L ALT 71 (12-78) U/L Alkaline Phosphatase 68 (45-117) U/L Troponin I 4.360 H* 4.790 H* (0-0.045) ng/ml NT-Pro-B Natriuret Pep 1033 H (0-900) pg/ml Total Protein 6.6 (6.4-8.2) gm/dl Albumin 3.5 (3.4-5.0) gm/dl Globulin 3.1 (2.5-4.0) gm/dl Albumin/Globulin Ratio 1.1 (0.9-2) Influenza Type A (PCR) (Neg) Influenza Type B (PCR) (Neg) Administered Medications Heparin Sodium/Dextrose (Heparin Sodium/Dextrose) 25,000 units in 500 mls @ 20 mls/hr IV .Q24H [facility]; Protocol Stop: 08/30/19 16:14 Last Admin: 07/31/19 16:35 Dose: 1,000 units/hr, 20 mls/hr Documented by: [id number] Cosigned by: [id number] Discontinued Medications Albuterol (Duoneb) 12 ml NEB ONE ONE Stop: 07/31/19 14:22 Last Admin: 07/31/19 14:53 Dose: 12 ml Documented by: [id number] Aspirin (Aspirin) 324 mg PO NOW STA Stop: 07/31/19 16:15 Last Admin: 07/31/19 16:34 Dose: 324 mg Documented by: [id number] Heparin Sodium (Porcine) (Heparin Iv Bolus) Confirm Administered Dose 10,000 units .ROUTE .STK-MED ONE Stop: 07/31/19 16:31 Last Admin: 07/31/19 16:40 Dose: 4,000 units Documented by: [id number] Cosigned by: [id number] Heparin Sodium/Dextrose () 1 ea IV NOW STA; Protocol Stop: 07/31/19 16:15 Last Admin: 07/31/19 16:43 Dose: 1 ea Documented by: [id number] Sodium Chloride (Nss) 500 mls @ 999 mls/hr IV .Q31M ONE Stop: 07/31/19 14:51 Last Infusion: 07/31/19 15:09 Dose: 0 mls/hr Documented by: [id number] Admin: 07/31/19 14:38 Dose: 999 mls/hr Documented by: [id number] Lorazepam (Ativan) 1 mg in 2 mls @ 2 mls/min IV NOW STA Stop: 07/31/19 14:28 Last Admin: 07/31/19 14:33 Dose: 2 mls/min Documented by: [id number] Sodium Chloride (Nss) 500 mls @ 999 mls/hr IV .Q31M ONE Stop: 07/31/19 16:18 Last Infusion: 07/31/19 16:33 Dose: 0 mls/hr Documented by: [id number] Admin: 07/31/19 16:02 Dose: 999 mls/hr Documented by: [id number] Doxycycline Hyclate 100 mg/ (Dextrose) 110 mls @ 50 mls/hr IV NOW STA Stop: 07/31/19 18:15 Last Infusion: 07/31/19 18:48 Dose: 0 mls/hr Documented by: [id number] Admin: 07/31/19 16:35 Dose: 50 mls/hr Documented by: [id number] Sodium Chloride (Nss 1000ml) 1,000 mls @ 125 mls/hr IV .Q8H JUDD Stop: 08/30/19 16:14 Last Admin: 07/31/19 17:19 Dose: Not Given Documented by: [id number] Sodium Chloride (Nss 1000ml) 500 mls @ 999 mls/hr IV .Q31M ONE Stop: 07/31/19 17:15 Last Infusion: 07/31/19 17:41 Dose: 0 mls/hr Documented by: [id number] Admin: 07/31/19 17:10 Dose: 999 mls/hr Documented by: [id number] Sodium Chloride (Nss 1000ml) 500 mls @ 999 mls/hr IV .Q31M ONE Stop: 07/31/19 18:20 Last Infusion: 07/31/19 18:28 Dose: 0 mls/hr Documented by: [id number] Admin: 07/31/19 17:57 Dose: 999 mls/hr Documented by: [id number] Methylprednisolone (Solumedrol) 125 mg IV NOW STA Stop: 07/31/19 14:22 Last Admin: 07/31/19 14:33 Dose: 125 mg Documented by: [id number] Blood Pressure Blood Pressure Findings: Normal blood pressure Discharge Plan Visit Data Chief Complaint: Respiratory Distress ED Provider: Allen Ulrich Discharge Problem: Acute on chronic respiratory failure with hypoxia and hypercapnia, Non-ST elevated myocardial infarction (non-STEMI), Acute respiratory acidosis, On home oxygen therapy, Elevated lactic acid level Discharge Instructions Interventions: ED Discharge Assessment Last Done: 07/31/19 19:30 Forms Stand Alone Forms: My [facility] Prescriptions Prescriptions: No Action albuterol sulfate [Ventolin HFA] 90 mcg/actuation HFA aerosol inhaler 2 puff INHALATION Q4 PRN (Reason: Wheezing, dyspnea) Qty: 18 RF: 5 ipratropium-albuterol 0.5 mg-3 mg(2.5 mg base)/3 mL solution for nebulization 3 ml INHALATION Q6H PRN (Reason: shortness of breath or wheezing) Qty: 360 RF: 11 Daliresp 500 mcg tablet 500 mcg PO QAM Qty: 30 RF: 5 Hold Instructions: patient cannot afford flu vac qv 2017(18yr up)rc(PF) 180 mcg (45 mcg x 4)/0.5 mL syringe 0.5 ml IM ONCE Qty: 0.5 RF: 0 prednisone 10 mg tablet 5 mg PO QAM Qty: 90 RF: 1 bupropion HCl 150 mg tablet extended release 24 hr 300 mg PO QAM RF: 0 tiotropium-olodaterol [Stiolto Respimat] 2.5-2.5 mcg/actuation mist 1 puff inhalation DAILY RF: 0 aspirin [Aspir-81] 81 mg Tablet,Delayed Release (Dr/Ec) 81 mg PO QAM RF: 0 cholecalciferol (vitamin D3) [Vitamin D3] 1,000 unit Capsule 1,000 unit PO QAM RF: 0 escitalopram oxalate 10 mg tablet 20 mg PO QAM RF: 0 ibuprofen 200 mg Tablet 200 mg PO Q6H PRN (Reason: Pain) RF: 0 Advair HFA 230-21 mcg/actuation HFA aerosol inhaler 2 puff INHALATION Q12 RF: 0 Spiriva Respimat 2.5 mcg/actuation mist 2 puff INHALATION QDL RF: 0 Referrals Referrals: Izabela Gonzalez DO [Primary Care Provider] -
[2019-07-31 14:41] LABS: HCO3 VBG 29 mmol/L; Oxygen Saturation VBG < 60.0 %; PCO2 VBG 74 mmHg (38-50); PO2 VBG 32 mmHg; pH VBG 7.21 (7.36-7.41)
[2019-07-31 14:51] LABS: iSTAT Creatinine 1.1 mg/dl (0.6-1.3); iSTAT Ionized Calcium 1.15 mmol/l (1.12-1.32); iSTAT Potassium 4.1 mmol/L (3.3-5.0)
[2019-07-31 14:59] LABS: Basophils # (auto) 0.03 K/uL (0-0.2); Basophils % (auto) 0.2 %; Eosinophils # (auto) 0.18 K/uL (0-0.5); Eosinophils % (auto) 1.4 %; Hematocrit (blood only) 46.3 % (42-52); Hemoglobin 15.6 g/dL (14.0-18.0); Immature Granulocytes # (auto) 0.09 K/uL (0.00-0.02); Immature Granulocytes % (auto) 0.7 %; Lymphocytes # (auto) 2.54 K/uL (1.2-3.4); Lymphocytes % (auto) 19.9 %; Mean Corpuscular Hemoglobin 31.6 pg (25-34); Mean Corpuscular Hgb Conc 33.7 g/dL (32-36); Mean Corpuscular Volume 93.9 fL (80-100); Mean Platelet Volume 9.3 fL (7.4-10.4); Neutrophils # (auto) 9.04 K/uL (1.4-6.5); Neutrophils % (auto) 70.8 %; Platelet Count 253 K/uL (130-400); RDW Coefficient of Variation 13.6 % (11.5-14.5); RDW Standard Deviation 46.8 fL (36.4-46.3); Red Blood Count 4.93 M/uL (4.7-6.1); White Blood Count 12.78 K/uL (4.8-10.8)
--- NOTE | 2019-07-31 15:08 | XRay Report ---
XR chest 1V portable CLINICAL HISTORY: 58 years-old Male presenting with SEPSIS. TECHNIQUE: Portable upright AP view of the chest was obtained. COMPARISON: 11/30/2014. FINDINGS: Atherosclerosis of the aortic arch. Cardiac silhouette mildly enlarged. Double density in the right r etrocardiac region. Minimal irregular bibasilar opacities. Blunting of costophrenic sulci likely rela mandy to hyperinflation. No pneumothorax or large effusion. Degenerative changes of the thoracic spine. Upper abdomen normal. IMPRESSION: 1. Findings suggest emphysema. No focal infiltrate to suggest pneumonia. 2. Mild cardiomegaly. No significant volume overload or advanced congestive change. ACT 112: Negative or not required by law. Electronically signed by: Lucien Donaldson M.D. 07/31/2019 3:07 PM
[2019-07-31 15:09] LABS: Partial Thromboplastin Ratio 0.9; Partial Thromboplastin Time 24.3 Seconds (21.0-31.0); Prothrombin Time 10.2 Seconds (9.0-12.0)
[2019-07-31 15:19] LABS: Alanine Aminotransferase 71 U/L (12-78); Albumin Level 3.5 gm/dl (3.4-5.0); Aspartate Aminotransferase 60 U/L (15-37); BUN Creatinine Ratio 13.3 (10-20); Bilirubin Direct < 0.1 mg/dl (0-0.2); Blood Urea Nitrogen 17 mg/dl (7-18); Calcium 8.7 mg/dl (8.5-10.1); Carbon Dioxide 27 mmol/L (21-32); Chloride 106 mmol/L (98-107); Creatinine Clr Calc Pharmacy 79.1 ml/min; Est GFR (African American) 70.9; Est GFR (Non-African American) 61.1; Glucose 133 mg/dl (70-99); Magnesium 2.7 mg/dl (1.8-2.4); Potassium 4.1 mmol/L (3.5-5.1); Sodium 139 mmol/L (136-145)
[2019-07-31 15:26] LABS: Albumin Globulin Ratio 1.1 (0.9-2); Alkaline Phosphatase 68 U/L (45-117); Bilirubin,Total 0.4 mg/dl (0.2-1); Globulin 3.1 gm/dl (2.5-4.0); NT Pro B Type Natriuretic Pept 1033 pg/ml (0-900); Phosphorus 4.5 mg/dl (2.5-4.9); Total Protein 6.6 gm/dl (6.4-8.2)
[2019-07-31 15:44] LABS: Influenza A virus by PCR Neg for Influ A (Neg)
[2019-07-31 15:45] LABS: Influenza B virus by PCR Neg for Influ B (Neg)
--- NOTE | 2019-07-31 16:02 | Electrocardiogram Report ---
Test Reason : Blood Pressure : / mmHG Vent. Rate : 119 BPM Atrial Rate : 119 BPM P-R Int : 142 ms QRS Dur : 076 ms QT Int : 332 ms P-R-T Axes : 046 001 083 degrees QTc Int : 467 ms Poor data quality, interpretation may be adversely affected Sinus tachycardia Low voltage QRS Septal infarct , age undetermined Abnormal ECG When compared with ECG of 02-JUL-2016 20:15, QRS voltage has decreased Septal infarct is now Present Confirmed by Carlos Mcgee ([id number]) on 07/31/2019 4:02:07 PM Referred By: REFERRED SELF Confirmed By:Carlos Mcgee
[2019-07-31] MEDS ORDERED: DOXYCYCLINE HYCLATE 100 MG in DEXTROSE 5% 100 ML IV STA (16:04)
--- NOTE | 2019-07-31 16:04 | Electrocardiogram Report ---
Test Reason : Blood Pressure : / mmHG Vent. Rate : 105 BPM Atrial Rate : 105 BPM P-R Int : 150 ms QRS Dur : 082 ms QT Int : 304 ms P-R-T Axes : 067 029 071 degrees QTc Int : 401 ms Poor data quality, interpretation may be adversely affected Sinus tachycardia with Premature atrial complexes Low voltage QRS Septal infarct (cited on or before 31-JUL-2019) Abnormal ECG When compared with ECG of 31-JUL-2019 14:19, (unconfirmed) Premature atrial complexes are now Present Nonspecific T wave abnormality now evident in Inferior leads Nonspecific T wave abnormality, worse in Anterolateral leads Confirmed by Carlos Mcgee ([id number]) on 07/31/2019 4:04:04 PM Referred By: REFERRED SELF Confirmed By:Carlos Mcgee
[2019-07-31] MEDS ORDERED: Heparin IV Low Dose WITH Bolus IV STA (16:14)
[2019-07-31] MEDS ORDERED: ASPIRIN CHEW 324 MG PO STA (16:14)
[2019-07-31] MEDS ORDERED: SODIUM CHLORIDE 0.9% 1000ML 1,000 ML IV SCH (16:15)
[2019-07-31] MEDS ORDERED: HEPARIN SOD (PORCINE) 1000 UNIT/ML 10 ML VIAL ONE (16:30)
[2019-07-31] MEDS: HEPARIN SODIUM/DEXTROSE 25,000 UNITS/500 ML BAG IV SCH (16:35)
[2019-07-31] MEDS ORDERED: SODIUM CHLORIDE 0.9% 1000ML 500 ML IV ONE ×2 (16:45→17:50)
--- NOTE | 2019-07-31 16:49 | History & Physical Report ---
Date of Service July 31, 2019 Assessment & Plan (1) COPD with acute exacerbation: -This is a 58 year old male with history of Chronic obstructive pulmonary disease ( COPD ) likely from tobacco use as he started smoking since he was a teenager and continues to be occasional smoker, follows with Dr. Bradford of [facility] pulmonary clinic, uses supplementary oxygen of 2 liters/min at baseline, who generally has been using nebulizers 4 times a day, and noted increased shortness of breath in recent days, and when he was brought in to the emergency room, he was started on BIPAP as per emergency room provider as well as IV steroid. When assessed by hospitalist service, patient reports his breathing feeling better and was able to tolerate transition to 2 liters/minute of nasal cannula -patient was given solumedrol 125 mg in the ED, will continue IV steroids as solumedrol 40 mg IV daily on 08/01/2019, patient reports that at home he is on prednisone 5 mg daily which is decreased from 10 mg daily from 1 to 2 months ago, patient will likely need higher doses of prednisone after this hospitalization -denies history of diabetes, check HbA1c while getting IV steroids while inpatient -continue nebulizer treatments as Q6 hours of Xopenex -Hold home inhalers of Advair and Tiotroprium while on scheduled nebulizer treatments and IV steroids -continue home dose roflumilast -was given Doxycycline by ED provider, continue Doxycycline 100 mg daily for 7 days in context of COPD exacerbation Chronic hypoxic respiratory failure - 2 liters/minute of nasal cannula with goal target saturation of 92% in context of COPD -BIPAP prn if decline in respiratory status Lactic acidosis from increased work of breathing Elevated Troponin from increased work of breathing -admission lactic acid 3.7 which trended down to 2.7 with IV fluids, completed 500 cc of IV fluids as bolus and to receive another 500 cc IV bolus, trend lactic acid level -admission troponin 4.36 to 4.79, no chest pain, trend troponin and monitor on telemetry -mildly elevated admission BNP of 1033, obtain echocardiogram -Hospitalist recommended that ED provider start patient on heparin IV until further cardiac workup can be performed with echocardiogram. will also obtain cardiology consultation. trend PTT while on IV heparin Tobacco Use disorder -patient was advised to cut down on current smoking use -will order nicotine patch Depression -continue home dose buproprion and escitalopram Hand tremors -denies history of alcohol use, monitor hand tremors Full Code status [phone] Reyna will be the hospitalist for the patient starting on 08/01/2019 History of Present Illness This is a 58 year old male with history of Chronic obstructive pulmonary disease ( COPD ) likely from tobacco use as he started smoking since he was a teenager and continues to be occasional smoker, follows with Dr. Bradford of [facility] pulmonary clinic, uses supplementary oxygen of 2 liters/min at baseline, who generally has been using nebulizers 4 times a day, and noted increased shortness of breath in recent days, and when he was brought in to the emergency room, he was started on BIPAP as per emergency room provider as well as IV steroid. When assessed by hospitalist service, patient reports his breathing feeling better and was able to tolerate transition to 2 liters/minute of nasal cannula Despite elevated admission troponins, patient denied having chest pain. Denies chest palpitations. Denies sick contacts. Influenza test is negative. no vomiting. no dsyuria. no abdomen pain. no unusual bowel movements. Family History: Patient denies family history of medical problems, denies family history of myocardial infarction Allergies: Patient denies of having any food or drug allergies Primary Care Provider: Izabela Gonzalez, Allergies Allergy/AdvReac Type Severity Reaction Status Date / Time No Known Drug Allergies Allergy Verified 07/31/19 15:17 Home Medications Home Medications Medication Instructions Recorded Confirmed Type aspirin [Aspir-81] 81 mg PO QAM 01/17/18 07/31/19 History cholecalciferol (vitamin D3) 1,000 unit PO QAM 01/17/18 07/31/19 History [Vitamin D3] albuterol sulfate 90 mcg/actuation 2 puff INHALATION Q4 PRN #18 gm 01/08/1907/21 Rx aerosol inhaler prednisone 10 mg tablet 5 mg PO QAM #90 tab 04/28/19 07/31/19 Rx ipratropium 0.5 mg-albuterol 3 mg 3 ml INHALATION Q6H PRN #360 ml 06/08/19 07/31/19 Rx (2.5 mg base)/3 mL nebulization soln bupropion HCl 150 mg 24 hr tablet, 300 mg PO QAM tab 06/09/19 07/31/19 History extended release escitalopram oxalate 10 mg tablet 20 mg PO QAM tab 06/09/19 07/31/19 History roflumilast 500 mcg tablet 500 mcg PO QAM #30 tab 07/20/19 07/31/19 Rx fluticasone propion-salmeterol 2 puff INHALATION Q12 07/31/19 07/31/19 History [Advair HFA] ibuprofen 200 mg PO Q6H PRN 07/31/19 07/31/19 History tiotropium bromide [Spiriva 2 puff INHALATION QDL 07/31/19 07/31/19 History Respimat] Past Med/Surg History Medical History (Updated 07/31/19 @ 17:21 by Vimal Escalona MD) Anxiety Asthma Chronic back pain Chronic obstructive pulmonary disease COPD exacerbation (Inactive) Depression Diverticular disease On home oxygen therapy Sleep apnea Social History Preferred Language: Senegalese Communication Ability: Effective Hotel Maintenance Worker Required: No Beliefs That Will Affect Care: None Current Living Situation: Spouse Current Living Situation Comment: [facility]OUSE Feels Safe at Home: Yes Smoking Status: Current some day smoker Tobacco Type: cigarettes ; Second Hand Exposure: Yes (ON OCC) ; Hx Alcohol Use: No Hx Substance Use: No Review of Systems Review of Systems: All systems reviewed & are unremarkable except as noted in HPI & below Physical Exam Constitutional: comfortable Eyes: PERRL, conjunctivae normal, anicteric sclerae ENMT: external ear and nose normal, oropharynx normal Neck: normal visual inspection Respiratory: able to speak in complete sentences Auscultation: + wheezes Cardiovascular: Rate/Rhythm: + tachycardic Gastrointestinal (Abdomen): normal bowel sounds, soft, nontender, no hepatosplenomegaly Musculoskeletal: Head/Neck/Chest: normocephalic and head atraumatic Neurologic: hand tremor Psychiatric: Orientation: alert, oriented x 3 and cooperative Results & Data Results & Data ([facility]) Vital Signs (Past 12 Hours) Vital Signs Temp Pulse Pulse Resp BP BP Pulse Ox 07/31/19 15:46 107 H 19 120/92 99 07/31/19 15:31 105 H 25 H 95/53 L 100 07/31/19 15:15 108 H 18 127/95 100 07/31/19 15:00 107 H 30 H 140/94 97 07/31/19 14:42 113 H 22 116/91 100 07/31/19 14:31 104 H 22 100 07/31/19 14:27 110 H 16 100 07/31/19 14:21 37.1 C 128 H 30 H 124/95 100 Code Status & VTE Plan VTE Prophylaxis Plan VTE Prophylaxis will be ordered: Yes
[2019-07-31] MEDS: LEVALBUTEROL HCL 1.25 MG/3 ML NEB NEB SCH (20:52)
[2019-07-31] MEDS ORDERED: SODIUM CHLORIDE 0.9% 1000ML 250 ML IV ONE (21:34)
[2019-07-31] MEDS: NICOTINE 7 MG/24 HR TDSY TD SCH (22:38)
[2019-07-31] MEDS ORDERED: LACTATED RINGER'S 1,000 ML IV ONE (23:25)
[2019-07-31 23:38] LABS: Partial Thromboplastin Ratio 1.5; Partial Thromboplastin Time 42.2 Seconds (21.0-31.0)
[2019-08-01] MEDS ORDERED: HEPARIN IV BOLUS 4,000 UNITS in SYRINGE 0 ML IV ONE (00:15)
[2019-08-01 00:40] LABS: Appearance Urine Clear (Clear); Bilirubin Urine Negative (Negative); Blood Urine Negative (Negative); Color Urine Yellow; Glucose Urine UA Negative (Negative); Ketones Urine Trace (Negative); Leukocyte Esterase Urine Negative (Negative); Nitrite Urine Negative (Negative); Protein Urine Negative (Negative); Specific Gravity Urine 1.018 (1.000-1.030); Urobilinogen Urine Negative (Negative); pH Urine 5.5 (4.5-7.5)
[2019-08-01] MEDS: LEVALBUTEROL HCL 1.25 MG/3 ML NEB NEB SCH ×2 (01:12→06:28)
[2019-08-01 07:19] LABS: Estimated Average Glucose 126 mg/dl
[2019-08-01 07:24] LABS: Basophils # (auto) 0.01 K/uL (0-0.2); Basophils % (auto) 0.1 %; Eosinophils # (auto) 0.01 K/uL (0-0.5); Eosinophils % (auto) 0.1 %; Hemoglobin 14.6 g/dL (14.0-18.0); Immature Granulocytes # (auto) 0.03 K/uL (0.00-0.02); Immature Granulocytes % (auto) 0.3 %; Lymphocytes # (auto) 2.07 K/uL (1.2-3.4); Lymphocytes % (auto) 18.7 %; Mean Corpuscular Hemoglobin 30.9 pg (25-34); Mean Corpuscular Hgb Conc 33.2 g/dL (32-36); Mean Corpuscular Volume 93.2 fL (80-100); Mean Platelet Volume 9.8 fL (7.4-10.4); Monocytes # (auto) 1.14 K/uL (0.11-0.59); Monocytes % (auto) 10.3 %; Neutrophils % (auto) 70.5 %; Platelet Count 249 K/uL (130-400); RDW Coefficient of Variation 13.7 % (11.5-14.5); RDW Standard Deviation 46.8 fL (36.4-46.3); Red Blood Count 4.72 M/uL (4.7-6.1); White Blood Count 11.06 K/uL (4.8-10.8)
[2019-08-01 07:29] LABS: Oxygen Saturation VBG 90.8 %; pH VBG 7.35 (7.36-7.41)
[2019-08-01 07:43] LABS: Albumin Level 3.3 gm/dl (3.4-5.0); BUN Creatinine Ratio 16.3 (10-20); Calcium 8.5 mg/dl (8.5-10.1); Est GFR (African American) 90.9; Est GFR (Non-African American) 78.4; Potassium 4.7 mmol/L (3.5-5.1)
[2019-08-01 07:49] LABS: Albumin Globulin Ratio 1.1 (0.9-2); Bilirubin,Total 0.3 mg/dl (0.2-1); Globulin 3.1 gm/dl (2.5-4.0); Total Protein 6.4 gm/dl (6.4-8.2); Troponin I 2.18 ng/ml (0-0.045)
[2019-08-01 07:55] LABS: Partial Thromboplastin Ratio 2.5
[2019-08-01 08:09] LABS: Partial Thromboplastin Time 68.9 Seconds (21.0-31.0)
[2019-08-01] MEDS: ESCITALOPRAM OXALATE 20 MG TAB PO SCH (08:43)
[2019-08-01] MEDS: ROFLUMILAST 500 MCG TAB PO SCH (08:43)
[2019-08-01] MEDS: CHOLECALCIFEROL 1,000 UNITS 25 MCG TAB PO SCH (08:43)
[2019-08-01] MEDS: BuPROPion XL 300 MG TABCR PO SCH (08:43)
[2019-08-01] MEDS: ASPIRIN 81 MG ECTAB PO SCH (08:43)
[2019-08-01] MEDS: DOXYCYCLINE HYCLATE 100 MG CAP PO SCH (08:44)
[2019-08-01] MEDS: NICOTINE 7 MG/24 HR TDSY TD SCH (08:45)
[2019-08-01] MEDS ORDERED: methylPREDNISolone 40 MG in SYRINGE 0 ML IV SCH (09:00)
--- NOTE | 2019-08-01 10:27 | Pulmonary Consultation ---
Date of Consultation August 01, 2019 Assessment & Plan (1) Acute on chronic respiratory failure with hypoxia and hypercapnia: -- Acute on chronic hypoxic hypercapnic respiratory failure Likely sec to COPD exacerbation, influenza negative Patient was not able to use Advair since last week or so as he unfortunately cannot afford it. Continue with inhaled bronchodilators, steroids, antibiotics Maintain SPO2 between 88 to 92% BiPAP nightly and as needed shortness of breath --Severe COPD with emphysema FEV1 on the latest PFT was only 20% predicted Patient is on LABA/ICS along with lama at home. Patient is also on Daliresp. If the patient COPD is still not controlled the next up would be to add azithromycin thrice weekly. Patient's QTC was 401 at the time of admission he should be able to tolerate it. This could be thought off as an outpatient. --Morbid obesity Advised to lose weight with diet and exercise Needs outpatient polysomnography --Active smoker with marijuana use Importance of quitting both explained to the patient It was clearly explained that his lungs cannot tolerate anymore smoking or any insult from any inhaled toxins --Plan: Patient had a VBG done on 07/31/2019 which showed pH of 7.21, PCO2 74 PFTs done 01/15/2019 showed FEV1 of only 20% predicted, 0.77 L, with airway trapping and increased lung volumes, DLCO was 49% predicted Given this above finding I think patient will benefit from trilogy at home. Due to chronic respiratory failure consequent to COPD, patient now requires a noninvasive home ventilator. Bilevel therapy with and without a rate would be ineffective as patient requires a volume targeted mode. Ventilation is required to decrease work of breathing and improve pulmonary status. Interruption of ventilator support would lead to decline of health status. NIMV settings should be AVAPS-AE; Breath rate: auto; Inspiratory time:auto; Sigh: off; Tidal Volume: 350-450, PS min: 4-10 PS max: 12-20; EPAP min: 6-10; EPAP max: 10-16; AVAPS rate: 14 during sleep and as needed Recommend social work getting involved in helping get patient LABA/ICS inhaler at home along with trilogy. Given ejection fraction only 20% on the recent echo would recommend to have a close eye on in and outs. Patient is +3 L since time of admission. Please note the above document was generated using voice recognition software. It may contain grammatical, syntax or spelling errors. (2) COPD with acute exacerbation: History of Present Illness Attending Physician: Camilo Galan MD History of Present Illness 58-year-old male with past medical history of severe COPD, on 2 L nasal cannula at home, active smoker, CHF who follows up with Dr. sidhu as an outpatient comes to the hospital with complaints of shortness of breath which has been going on since last 3 or 4 days. It was getting to such an extent that he was not able to do his day-to-day activities. Patient does complain of chronic cough which has not changed in intensity or frequency recently. It is associated with whitish phlegm. Patient denies any fever or chills. No dysuria, no diarrhea. Denies any headache, no nausea or vomiting. No hemoptysis. No palpitations, no dizziness. Patient states that he has been compliant with his inhaler although throughout except since last couple of weeks when he is not able to afford his Advair. He is using his Spiriva though. Patient denies any recent travel history. No known exposure to any patients will wear Covid-19 positive. No weight loss, no night sweats. Social history: Greater than [id number]-uish smoking history, still smokes occasi onally 3 to 4 cigarettes a day, quit alcohol 16 years ago, uses marijuana occasionally. Has no pets at home. Allergies Allergy/AdvReac Type Severity Reaction Status Date / Time No Known Drug Allergies Allergy Verified 07/31/19 15:17 Home Medications Home Medications Medication Instructions Recorded Confirmed Type aspirin [Aspir-81] 81 mg PO QAM 01/17/18 07/31/19 History cholecalciferol (vitamin D3) 1,000 unit PO QAM 01/17/18 07/31/19 History [Vitamin D3] albuterol sulfate 90 mcg/actuation 2 puff INHALATION Q4 PRN #18 gm 01/08/19 07/31/19 Rx aerosol inhaler prednisone 10 mg tablet 5 mg PO QAM #90 tab 04/28/19 07/31/19 Rx ipratropium 0.5 mg-albuterol 3 mg 3 ml INHALATION Q6H PRN #360 ml 06/08/19 07/31/19 Rx (2.5 mg base)/3 mL nebulization soln bupropion HCl 150 mg 24 hr tablet, 300 mg PO QAM tab 06/09/19 07/31/19 History extended release escitalopram oxalate 10 mg tablet 20 mg PO QAM tab 06/09/19 07/31/19 History roflumilast 500 mcg tablet 500 mcg PO QAM #30 tab 07/20/19 07/31/19 Rx fluticasone propion-salmeterol 2 puff INHALATION Q12 07/31/19 07/31/19 History [Advair HFA] ibuprofen 200 mg PO Q6H PRN 07/31/19 07/31/19 History tiotropium bromide [Spiriva 2 puff INHALATION QDL 07/31/19 07/31/19 History Respimat] Patient History Medical History Anxiety Asthma Chronic back pain Chronic obstructive pulmonary disease COPD exacerbation (Inactive) Depression Diverticular disease On home oxygen therapy Sleep apnea Surgical History History of bowel resection DIVERTICULITIS History of herniorrhaphy X 5 Social History Preferred Language: Liberian Communication Ability: Effective Fuel Testing Technician Required: No Beliefs That Will Affect Care: None Current Living Situation: Spouse Current Living Situation Comment: [facility] Other Information That Helps Us Care for You: No Feels Safe at Home: Yes Safety Concerns: Feels Safe At This Time Smoking Status: Light tobacco smoker Tobacco Type: cigarettes ; Do You Dip or Chew Tobacco: No ; Second Hand Exposure: No ; Tobacco Cessation Education Requested by Patient: No Hx Alcohol Use: No Hx Substance Use: Yes substance use type: marijuana Last Used Substance: Days (ago) Review of Systems Review of Systems: All systems reviewed & are unremarkable except as noted in HPI & below Physical Exam Physical Exam: Constitutional: No acute distress HEENT: EOMI, PERRLA Respiratory system: Decreased air entry bilaterally, no crackles, no rhonchi, diffuse expiratory wheeze CVS: S1-S2 positive, no murmurs or gallops, distant heart sounds Abdomen: Soft, nontender, nondistended, positive bowel sounds x4 Extremities: +2 pulses bilaterally radialis/ dorsalis pedis, no cyanosis, +1 edema bilateral lower extremity Neuro: Awake alert oriented x3 Psych: Normal mood and affect G/U: No Rand Skin: no rashes, warm and dry Lymphatic: no cervical or axillary lymphadenopathy Results & Data Results & [facility] ([facility]) Vital Signs (Past 12 Hours) Vital Signs Temp Pulse Pulse Pulse Resp BP Pulse Ox 08/01/19 07:51 37.0 C 96 H 22 110/81 96 08/01/19 07:27 90 24 96 08/01/19 06:30 85 84 20 97 08/01/19 04:41 36.7 C 66 22 103/63 99 08/01/19 01:13 74 20 95 07/31/19 23:08 37.3 C 85 22 107/72 95 08/01/19 07:12 08/01/19 07:11 CT chest without contrast done 08/01/2019 personally reviewed. Patient has severe bullous emphysema involving upper and lower lobes. No significant m ediastinal lymphadenopathy. No clear pulmonary nodule appreciated. PG Care Time/CCT Total # of Minutes Spent Total Time Spent with Patient: Total time spent is greater than 50% in coordination of care (as documented) at patient's floor/unit and/or counseling patient: Coding Level of Care Code 89326 Inpt Consult Level 5 Diagnoses Acute on chronic respiratory failure with hypoxia and hypercapnia J96.21; J96. 22 COPD with acute exacerbation J44.1
--- NOTE | 2019-08-01 10:42 | Cardiology Consultation ---
Date of Consultation August 01, 2019 Assessment & Plan (1) Acute on chronic respiratory failure with hypoxia and hypercapnia: (2) Non-ST elevated myocardial infarction (non-STEMI): (3) Acute respiratory acidosis: (4) COPD with acute exacerbation: This patient has an acute exacerbation of COPD and should continue that treatment however, he may have some mild congestive heart failure and I will give him a dose of Lasix today. He currently is comfortable and has no complaints of chest pain. He does have troponin elevation which may be due to strain from hypoxia and lactic acidosis from his COPD exacerbation. Due to his longstanding history of cigarette smoking he most likely has coronary artery disease. At present I would continue his current treatment including IV heparin. I would stabilize him clinically and then we can decide on an ischemic work-up which may be a conservative route with pharmacologic stress testing versus an invasive route coronary angiography. I will review his echocardiogram that was completed this morning which should help us with decision making. History of Present Illness Attending Physician: Camilo Galan MD History of Present Illness This is a 58-year-old male patient who was last seen in our practice in 2013 when he underwent a stress test that was negative. Patient has a longstanding history of cigarette smoking since he was a teenager and has known COPD. He came in short of breath with an exacerbation of COPD. After treatment was started, he now feels improvement. He denies fever or chills. No productive cough. No chest pain. No heart palpitations or tachycardia. His cardiac troponins have been mildly elevated since admission and have been trending down. Echocardiogram was completed this morning and I will review. Allergies Allergy/AdvReac Type Severity Reaction Status Date / Time No Known Drug Allergies Allergy Verified 07/31/19 15:17 Home Medications Home Medications Medication Instructions Recorded Confirmed Type aspirin [Aspir-81] 81 mg PO QAM 01/17/18 07/31/19 History cholecalciferol (vitamin D3) 1,000 unit PO QAM 01/17/18 07/31/19 History [Vitamin D3] albuterol sulfate 90 mcg/actuation 2 puff INHALATION Q4 PRN #18 gm 01/08/19 07/31/19 Rx aerosol inhaler prednisone 10 mg tablet 5 mg PO QAM #90 tab 04/28/19 07/31/19 Rx ipratropium 0.5 mg-albuterol 3 mg 3 ml INHALATION Q6H PRN #360 ml 06/08/19 07/31/19 Rx (2.5 mg base)/3 mL nebulization soln bupropion HCl 150 mg 24 hr tablet, 300 mg PO QAM tab 06/09/19 07/31/19 History extended release escitalopram oxalate 10 mg tablet 20 mg PO QAM tab 06/09/19 07/31/19 History roflumilast 500 mcg tablet 500 mcg PO QAM #30 tab 07/20/19 07/31/19 Rx fluticasone propion-salmeterol 2 puff INHALATION Q12 07/31/19 07/31/19 History [Advair HFA] ibuprofen 200 mg PO Q6H PRN 07/31/19 07/31/19 History tiotropium bromide [Spiriva 2 puff INHALATION QDL 07/31/19 07/31/19 History Respimat] Patient History Medical History Anxiety Asthma Chronic back pain Chronic obstructive pulmonary disease COPD exacerbation (Inactive) Depression Diverticular disease On home oxygen therapy Sleep apnea Surgical History History of bowel resection DIVERTICULITIS History of herniorrhaphy X 5 Social History Preferred Language: Albanian Communication Ability: Effective Job Compositor Required: No Beliefs That Will Affect Care: None Current Living Situation: Spouse Current Living Situation Comment: [facility] Other Information That Helps Us Care for You: No Feels Safe at Home: Yes Safety Concerns: Feels Safe At This Time Smoking Status: Light tobacco smoker Tobacco Type: cigarettes ; Do You Dip or Chew Tobacco: No ; Second Hand Exposure: No ; Tobacco Cessation Education Requested by Patient: No Hx Alcohol Use: No Hx Substance Use: Yes substance use type: marijuana Last Used Substance: Days (ago) Review of Systems Review of Systems: All systems reviewed & are unremarkable except as noted in HPI & below Nothing additional to add. Physical Exam Physical Exam: General: no acute distress and stated age Head: normocephalic, no masses, lesions, tenderness or abnormalities Eyes: conjunctiva are pink and non-injected, sclera clear Neck: supple, no adenopathy, no bruits, normal jugular venous pulse, no hepatojugular reflux Chest: normal shape and normal respiratory effort Lungs: clear to auscultation and percussion Cardiac Exam: - regular rate & rhythm, no murmurs gallops or rubs - normal S1, normal S2 Pulses: 2(+) throughout Abdomen: abdomen soft, non-tender, no abnormal masses and no hepatosplenomegaly Musculoskeletal: no gait disturbance, no joint inflammation, no deforming arthritis Extremities: no edema and no cyanosis Neuro: grossly normal exam Results & Data ([facility]) Vital Signs (Past 12 Hours) Vital Signs Temp Pulse Pulse Pulse Resp BP Pulse Ox 08/01/19 07:51 37.0 C 96 H 22 110/81 96 08/01/19 07:27 90 24 96 08/01/19 06:30 85 84 20 97 08/01/19 04:41 36.7 C 66 22 103/63 99 08/01/19 01:13 74 20 95 07/31/19 23:08 37.3 C 85 22 107/72 95 Laboratory Results Laboratory Results - last 24 hr 07/31/19 07/31/19 07/31/19 14:22 14:28 14:34 WBC RBC Hgb POC Hgb Hct POC Hct MCV MCH MCHC RDW Std Deviation RDW Coeff of Nevin Plt Count MPV Immature Gran % (Auto) Neut % (Auto) Lymph % (Auto) [place] % (Auto) Eos % (Auto) Baso % (Auto) Immature Gran # (Auto) Neut # (Auto) Lymph # (Auto) [place] # (Auto) Eos # (Auto) Baso # (Auto) PT INR APTT PTT Ratio VBG pH 7.21 L VBG pCO2 74 H VBG pO2 32 VBG HCO3 29 VBG O2 Saturation < 60.0 VBG Base Excess -1.0 Barometric Pressure 724.0 POC Sodium Sodium POC Potassium Potassium POC Chloride Chloride Carbon Dioxide POC Total CO2 Anion Gap POC Anion Gap POC BUN BUN Creatinine POC Creatinine Est Cr Clr Drug Dosing Est GFR ( Amer) Est GFR (Non-Af Amer) BUN/Creatinine Ratio Glucose POC Glucose (other) Estimat Average Glucose Hemoglobin A1c Lactate 3.7 H* Calcium POC Ioniz Calcium Gerardo Phosphorus Magnesium Total Bilirubin Direct Bilirubin AST ALT Alkaline Phosphatase Troponin I NT-Pro-B Natriuret Pep Total Protein Albumin Globulin Albumin/Globulin Ratio Urine Color Urine Appearance Urine pH Ur Specific [place] Urine Protein Urine Glucose (UA) Urine Ketones Urine Blood Urine Nitrite Urine Bilirubin Urine Urobilinogen Ur Leukocyte Esterase Hepatitis C Ab Screen Influenza Type A (PCR) Neg for Influ A Influenza Type B (PCR) Neg for Influ B 07/31/19 07/31/19 07/31/19 14:36 14:46 14:46 WBC 12.78 H RBC 4.93 Hgb 15.6 POC Hgb 16.0 Hct 46.3 POC Hct 47 MCV 93.9 MCH 31.6 MCHC 33.7 RDW Std Deviation 46.8 H RDW Coeff of Nevin 13.6 Plt Count 253 MPV 9.3 Immature Gran % (Auto) 0.7 Neut % (Auto) 70.8 Lymph % (Auto) 19.9 [place] % (Auto) 7.0 Eos % (Auto) 1.4 Baso % (Auto) 0.2 Immature Gran # (Auto) 0.09 H Neut # (Auto) 9.04 H Lymph # (Auto) 2.54 [place] # (Auto) 0.90 H Eos # (Auto) 0.18 Baso # (Auto) 0.03 PT 10.2 INR 1.0 APTT 24.3 PTT Ratio 0.9 VBG pH VBG pCO2 VBG pO2 VBG HCO3 VBG O2 Saturation VBG Base Excess Barometric Pressure POC Sodium 138 Sodium POC Potassium 4.1 Potassium POC Chloride 100 L Chloride Carbon Dioxide POC Total CO2 27 Anion Gap POC Anion Gap 16.0 POC BUN 18 BUN Creatinine POC Creatinine 1.1 Est Cr Clr Drug Dosing Est GFR ( Amer) Est GFR (Non-Af Amer) BUN/Creatinine Ratio Glucose POC Glucose (other) 134 H Estimat Average Glucose Hemoglobin A1c Lactate Calcium POC Ioniz Calcium Gerardo 1.15 Phosphorus Magnesium Total Bilirubin Direct Bilirubin AST ALT Alkaline Phosphatase Troponin I NT-Pro-B Natriuret Pep Total Protein Albumin Globulin Albumin/Globulin Ratio Urine Color Urine Appearance Urine pH Ur Specific [place] Urine Protein Urine Glucose (UA) Urine Ketones Urine Blood Urine Nitrite Urine Bilirubin Urine Urobilinogen Ur Leukocyte Esterase Hepatitis C Ab Screen Influenza Type A (PCR) Influenza Type B (PCR) 07/31/19 07/31/19 07/31/19 14:46 16:59 16:59 WBC RBC Hgb POC Hgb Hct POC Hct MCV MCH MCHC RDW Std Deviation RDW Coeff of Nevin Plt Count MPV Immature Gran % (Auto) Neut % (Auto) Lymph % (Auto) [place] % (Auto) Eos % (Auto) Baso % (Auto) Immature Gran # (Auto) Neut # (Auto) Lymph # (Auto) [place] # (Auto) Eos # (Auto) Baso # (Auto) PT INR APTT PTT Ratio VBG pH VBG pCO2 VBG pO2 VBG HCO3 VBG O2 Saturation VBG Base Excess Barometric Pressure POC Sodium Sodium 139 POC Potassium Potassium 4.1 POC Chloride Chloride 106 Carbon Dioxide 27 POC Total CO2 Anion Gap 6.0 POC Anion Gap POC BUN BUN 17 Creatinine 1.29 POC Creatinine Est Cr Clr Drug Dosing 79.1 Est GFR ( Amer) 70.9 Est GFR (Non-Af Amer) 61.1 BUN/Creatinine Ratio 13.3 Glucose 133 H POC Glucose (other) Estimat Average Glucose Hemoglobin A1c Lactate 2.9 H* Calcium 8.7 POC Ioniz Calcium Gerardo Phosphorus 4.5 Magnesium 2.7 H Total Bilirubin 0.4 Direct Bilirubin < 0.1 AST 60 H ALT 71 Alkaline Phosphatase 68 Troponin I 4.360 H* 4.790 H* NT-Pro-B Natriuret Pep 1033 H Total Protein 6.6 Albumin 3.5 Globulin 3.1 Albumin/Globulin Ratio 1.1 Urine Color Urine Appearance Urine pH Ur Specific [place] Urine Protein Urine Glucose (UA) Urine Ketones Urine Blood Urine Nitrite Urine Bilirubin Urine Urobilinogen Ur Leukocyte Esterase Hepatitis C Ab Screen Influenza Type A (PCR) Influenza Type B (PCR) 07/31/19 07/31/19 07/31/19 20:29 22:33 22:33 WBC RBC Hgb POC Hgb Hct POC Hct MCV MCH MCHC RDW Std Deviation RDW Coeff of Nevin Plt Count MPV Immature Gran % (Auto) Neut % (Auto) Lymph % (Auto) [place] % (Auto) Eos % (Auto) Baso % (Auto) Immature Gran # (Auto) Neut # (Auto) Lymph # (Auto) [place] # (Auto) Eos # (Auto) Baso # (Auto) PT INR APTT PTT Ratio VBG pH VBG pCO2 VBG pO2 VBG HCO3 VBG O2 Saturation VBG Base Excess Barometric Pressure POC Sodium Sodium POC Potassium Potassium POC Chloride Chloride Carbon Dioxide POC Total CO2 Anion Gap POC Anion Gap POC BUN BUN Creatinine POC Creatinine Est Cr Clr Drug Dosing Est GFR ( Amer) Est GFR (Non-Af Amer) BUN/Creatinine Ratio Glucose POC Glucose (other) Estimat Average Glucose 126 Hemoglobin A1c 6.0 H Lactate 2.6 H* Calcium POC Ioniz Calcium Gerardo Phosphorus Magnesium Total Bilirubin Direct Bilirubin AST ALT Alkaline Phosphatase Troponin I 3.180 H* NT-Pro-B Natriuret Pep Total Protein Albumin Globulin Albumin/Globulin Ratio Urine Color Urine Appearance Urine pH Ur Specific [place] Urine Protein Urine Glucose (UA) Urine Ketones Urine Blood Urine Nitrite Urine Bilirubin Urine Urobilinogen Ur Leukocyte Esterase Hepatitis C Ab Screen Influenza Type A (PCR) Influenza Type B (PCR) 07/31/19 07/31/19 07/31/19 22:33 22:33 23:09 WBC RBC Hgb POC Hgb Hct POC Hct MCV MCH MCHC RDW Std Deviation RDW Coeff of Nevin Plt Count MPV Immature Gran % (Auto) Neut % (Auto) Lymph % (Auto) [place] % (Auto) Eos % (Auto) Baso % (Auto) Immature Gran # (Auto) Neut # (Auto) Lymph # (Auto) [place] # (Auto) Eos # (Auto) Baso # (Auto) PT INR APTT 42.2 H PTT Ratio 1.5 VBG pH VBG pCO2 VBG pO2 VBG HCO3 VBG O2 Saturation VBG Base Excess Barometric Pressure POC Sodium Sodium POC Potassium Potassium POC Chloride Chloride Carbon Dioxide POC Total CO2 Anion Gap POC Anion Gap POC BUN BUN Creatinine POC Creatinine Est Cr Clr Drug Dosing Est GFR ( Amer) Est GFR (Non-Af Amer) BUN/Creatinine Ratio Glucose POC Glucose (other) Estimat Average Glucose Hemoglobin A1c Lactate 3.1 H* Calcium POC Ioniz Calcium Gerardo Phosphorus Magnesium Total Bilirubin Direct Bilirubin AST ALT Alkaline Phosphatase Troponin I NT-Pro-B Natriuret Pep Total Protein Albumin Globulin Albumin/Globulin Ratio Urine Color Urine Appearance Urine pH Ur Specific [place] Urine Protein Urine Glucose (UA) Urine Ketones Urine Blood Urine Nitrite Urine Bilirubin Urine Urobilinogen Ur Leukocyte Esterase Hepatitis C Ab Screen Neg Influenza Type A (PCR) Influenza Type B (PCR) 08/01/19 08/01/19 08/01/19 00:10 07:11 07:11 WBC RBC Hgb POC Hgb Hct POC Hct MCV MCH MCHC RDW Std Deviation RDW Coeff of Nevin Plt Count MPV Immature Gran % (Auto) Neut % (Auto) Lymph % (Auto) [place] % (Auto) Eos % (Auto) Baso % (Auto) Immature Gran # (Auto) Neut # (Auto) Lymph # (Auto) [place] # (Auto) Eos # (Auto) Baso # (Auto) PT INR APTT 68.9 H* PTT Ratio 2.5 VBG pH VBG pCO2 VBG pO2 VBG HCO3 VBG O2 Saturation VBG Base Excess Barometric Pressure POC Sodium Sodium 139 POC Potassium Potassium 4.7 POC Chloride Chloride 108 H Carbon Dioxide 26 POC Total CO2 Anion Gap 5.0 POC Anion Gap POC BUN BUN 17 Creatinine 1.05 POC Creatinine Est Cr Clr Drug Dosing 97.0 Est GFR ( Amer) 90.9 Est GFR (Non-Af Amer) 78.4 BUN/Creatinine Ratio 16.3 Glucose 114 H POC Glucose (other) Estimat Average Glucose Hemoglobin A1c Lactate Calcium 8.5 POC Ioniz Calcium Gerardo Phosphorus Magnesium Total Bilirubin 0.3 Direct Bilirubin AST 46 H ALT 56 Alkaline Phosphatase 63 Troponin I 2.180 H* NT-Pro-B Natriuret Pep Total Protein 6.4 Albumin 3.3 L Globulin 3.1 Albumin/Globulin Ratio 1.1 Urine Color Yellow Urine Appearance Clear Urine pH 5.5 Ur Specific [place] 1.018 Urine Protein Negative Urine Glucose (UA) Negative Urine Ketones Trace H Urine Blood Negative Urine Nitrite Negative Urine Bilirubin Negative Urine Urobilinogen Negative Ur Leukocyte Esterase Negative Hepatitis C Ab Screen Influenza Type A (PCR) Influenza Type B (PCR) 08/01/19 08/01/19 08/01/19 07:12 07:12 07:12 WBC 11.06 H RBC 4.72 Hgb 14.6 POC Hgb Hct 44.0 POC Hct MCV 93.2 MCH 30.9 MCHC 33.2 RDW Std Deviation 46.8 H RDW Coeff of Nevin 13.7 Plt Count 249 MPV 9.8 Immature Gran % (Auto) 0.3 Neut % (Auto) 70.5 Lymph % (Auto) 18.7 [place] % (Auto) 10.3 Eos % (Auto) 0.1 Baso % (Auto) 0.1 Immature Gran # (Auto) 0.03 H Neut # (Auto) 7.80 H Lymph # (Auto) 2.07 [place] # (Auto) 1.14 H Eos # (Auto) 0.01 Baso # (Auto) 0.01 PT INR APTT PTT Ratio VBG pH 7.35 L VBG pCO2 46 VBG pO2 62 VBG HCO3 25 VBG O2 Saturation 90.8 VBG Base Excess -1.0 Barometric Pressure 730.4 POC Sodium Sodium POC Potassium Potassium POC Chloride Chloride Carbon Dioxide POC Total CO2 Anion Gap POC Anion Gap POC BUN BUN Creatinine POC Creatinine Est Cr Clr Drug Dosing Est GFR ( Amer) Est GFR (Non-Af Amer) BUN/Creatinine Ratio Glucose POC Glucose (other) Estimat Average Glucose Hemoglobin A1c Lactate 3.0 H* Calcium POC Ioniz Calcium Gerardo Phosphorus Magnesium Total Bilirubin Direct Bilirubin AST ALT Alkaline Phosphatase Troponin I NT-Pro-B Natriuret Pep Total Protein Albumin Globulin Albumin/Globulin Ratio Urine Color Urine Appearance Urine pH Ur Specific [place] Urine Protein Urine Glucose (UA) Urine Ketones Urine Blood Urine Nitrite Urine Bilirubin Urine Urobilinogen Ur Leukocyte Esterase Hepatitis C Ab Screen Influenza Type A (PCR) Influenza Type B (PCR) Medications Administered Current Inpatient Medications Acetaminophen (Tylenol) 325 mg PO Q6H PRN PRN Reason: Pain or Fever Stop: 08/30/19 16:44 Aspirin (Ecotrin Ectab) [address] [facility] Stop: 08/31/19 08:59 Last Admin: 08/01/19 08:43 Dose: 81 mg Documented by: Bupropion HCl (Wellbutrin-Xl) [address] [facility] Stop: 08/31/19 08:59 Last Admin: 08/01/19 08:43 Dose: 300 mg Documented by: Calcium Carbonate (Tums) 500 mg PO Q6H PRN PRN Reason: Heartburn Stop: 08/31/19 04:53 Doxycycline Hyclate (Vibramycin) 100 mg PO DAILY [facility] Stop: 08/06/19 09:01 Last Admin: 08/01/19 08:44 Dose: 100 mg Documented by: Escitalopram Oxalate (Lexapro Tab) 20 mg PO QAM [facility] Stop: 08/31/19 08:59 Last Admin: 08/01/19 08:43 Dose: 20 mg Documented by: Heparin Sodium/Dextrose (Heparin Sodium/Dextrose) 25,000 units in 500 mls @ 20 mls/hr IV .Q24H [facility]; Protocol Stop: 08/30/19 16:14 Last Titration: 08/01/19 08:10 Dose: 1,000 units/hr, 20 mls/hr Documented by: Methylprednisolone 40 mg/ (Syringe) 0.64 mls @ 1.5 mls/min IV Q8H [facility] Stop: 08/31/19 14:59 Furosemide 20 mg/ Syringe 2 mls @ 4 mls/min IV ONE ONE Stop: 08/01/19 10:46 Ipratropium [place] (Atrovent 0.02% 0.5mg/2.5ml) 0.5 mg INH Q6R [facility] Stop: 08/31/19 12:59 Levalbuterol HCl (Xopenex 1.25mg/0.5ml Neb) 1.25 mg INH Q6R [facility] Stop: 08/31/19 12:59 Miscellaneous (Remove Nicoderm Patch) 1 ea N/A DAILY@0859 [facility] Stop: 08/31/19 08:58 Last Admin: 08/01/19 08:45 Dose: Not Given Documented by: Nicotine (Nicoderm Cq) [address] [facility] Stop: 08/30/19 17:59 Last Admin: 08/01/19 08:45 Dose: Not Given Documented by: Roflumilast (Daliresp) [facility] Stop: 08/31/19 08:59 Last Admin: 08/01/19 08:43 Dose: 500 mcg Documented by: Vitamin D (Vitamin D3) 1,000 [facility] [place] Stop: 08/31/19 08:59 Last Admin: 08/01/19 08:43 Dose: 1,000 units Documented by:
[2019-08-01] MEDS ORDERED: FUROSEMIDE 20 MG in SYRINGE 0 ML IV ONE (10:45)
--- NOTE | 2019-08-01 11:29 | CT Scan Report ---
CT chest wo con CT DOSE: 813.93 mGy.cm CLINICAL HISTORY: 58 years-old Male with hypoxia, r/o pneumonia. Acute hypoxia with clinical concern for pneumonia TECHNIQUE: Multiaxial CT images of the chest were performed without contrast. A dose lowering techni que was utilized adhering to the principles of ALARA. COMPARISON: CTA of the chest 07/02/2016 FINDINGS: Cardiomegaly. Mural fatty changes of the apical wall left ventricle suggests prior myocardial infarct ion. Coronary artery calcifications are noted. No pericardial effusion or thoracic aortic aneurysm. N o adenopathy. Unremarkable thyroid. Severe bullous emphysema with bronchial wall thickening suggestiv e of bronchitis. Motion artifact limits the study. Linear bibasilar subsegmental densities suggest at electasis/scarring. No pneumothorax, pleural effusion or overt pulmonary edema. No suspicious pulmona ry nodules. Decreased transverse dimension of the trachea compatible with saber sheath morphology. No acute process of the imaged upper abdomen. Trace free fluid is noted adjacent to the anterior live r. There are several scattered subcentimeter hypodense hepatic foci which appears similar to comparis on and are incompletely characterized however suggests probable hepatic cysts. Soft tissues are unrem arkable. Degenerative changes of the spine and shoulders. Convex left curvature of the upper thoracic spine. No acute fracture. IMPRESSION: 1. Severe bullous emphysema with moderate bronchitis. 2. No adenopathy, pleural effusion or airspace consolidation typical for pneumonia. 3. Linear subsegmental bibasilar atelectasis. 4. Additional findings as above. ACT 112: Negative or not required by law. Electronically signed by: Etienne Rivero M.D. 08/01/2019 11:27 AM
[2019-08-01] MEDS ORDERED: XOPENEX/ATROVENT 1.25mg/0.5MG NEB COMBO NEB SCH (13:00)
[2019-08-01] MEDS: lisinopriL 10 MG TAB PO SCH (13:24)
[2019-08-01] MEDS: IPRATROPIUM BROMIDE NEB SOLN 0.02% 2.5 ML VIAL INH SCH ×2 (13:55→19:03)
[2019-08-01] MEDS: LEVALBUTEROL 1.25MG/0.5ML NEB INH SCH ×2 (13:55→19:03)
[2019-08-01 14:08] LABS: Partial Thromboplastin Ratio 1.4; Partial Thromboplastin Time 40.1 Seconds (21.0-31.0)
[2019-08-01] MEDS ORDERED: HEPARIN IV BOLUS 4,500 UNITS in SYRINGE 0 ML IV ONE (15:00)
[2019-08-01] MEDS: HEPARIN SODIUM/DEXTROSE 25,000 UNITS/500 ML BAG IV SCH (15:54)
[2019-08-01] MEDS: methylPREDNISolone 40 MG in SYRINGE 0 ML IV SCH ×2 (15:54→22:32)
--- NOTE | 2019-08-01 16:36 | Hospitalist Progress Note ---
Date of Service August 01, 2019 Assessment & Plan (1) Acute on chronic respiratory failure with hypoxia and hypercapnia: 58 year old male with history of (1)Acute on Chronic Hypoxic/Hypercapneic Respiratory failure secondary to Severe COPD with acute exacerbation, from Acute Bronchitis -- on 2 L of o2 via nasal cannula at baseline -- CT chest: no infiltrates, pneumonia -- continue Doxycycline, Solumedrol, Nebs q6h PRN Bipap -- continue usual Advair, Daliresp hold Spiriva NSTEMI, Cardiomyopathy, likely Ischemic - trop 4.7 to 2.1 Echo: EF 20-25%, - chest pain free - continue heparin drip Lasix 20 mg IV one dose given - may need pharmacologic stress test or cardiac cath Lactic acidosis from hypoxia, bet agonist - stable Tobacco Use disorder -counseled -will order nicotine patch Depression -continue home dose buproprion and escitalopram Hand tremors -denies history of alcohol use, monitor hand tremors Full Code status [phone] Disposition pending Admission and Anticipated Discharge Date Admission Date: July 31, 2019 Subjective ff up for acute on chronic hypoxic respiratory failure, COPD exacerbation seen sitting at the edge of the bed, just walked from the commode near bedside tachypneic but was also to speak in sentences with some effort alert, awake, asking appropriate questions states breathing is somewhat better than yesterday has occasional cough no chest pain no other symptoms Review of Systems Review of Systems: All systems reviewed & are unremarkable except as noted in HPI & below Physical Exam Physical Exam: General- oriented x 3, not in distress, speaks in sentences with mild effort and accessory muscle use Eyes- anicteric Neck- no JVD Lungs- (+) mild expiratory wheezing bilaterally Heart- normal rate, regular rhythm; no murmurs Abdomen- normal bowel sounds, nondistended, soft, nontender Extremities- trace pretibial edema, no calf tenderness Neuro- alert, oriented x 3; no gross focal neurologic deficits Skin- warm & dry Results & Data Results & Data ([facility]) Vital Signs (Past 12 Hours) Vital Signs Temp Pulse Pulse Pulse Resp BP BP 08/01/19 15:51 90 08/01/19 15:13 36.5 C 70 18 110/76 08/01/19 13:57 81 18 08/01/19 11:39 36.8 C 69 20 121/84 08/01/19 11:17 97 H 94 H 08/01/19 08:10 82 08/01/19 07:51 37.0 C 96 H 22 110/81 08/01/19 07:27 90 24 08/01/19 06:30 85 84 20 08/01/19 04:41 36.7 C 66 22 103/63 Pulse Ox 08/01/19 15:51 08/01/19 15:13 99 08/01/19 13:57 97 08/01/19 11:39 94 08/01/19 11:17 08/01/19 08:10 08/01/19 07:51 96 08/01/19 07:27 96 08/01/19 06:30 97 08/01/19 04:41 99 Laboratory Results Laboratory Results - last 24 hr 07/31/19 07/31/19 07/31/19 16:59 16:59 20:29 WBC RBC Hgb Hct MCV MCH MCHC RDW Std Deviation RDW Coeff of Nevin Plt Count MPV Immature Gran % (Auto) Neut % (Auto) Lymph % (Auto) Hughes % (Auto) Eos % (Auto) Baso % (Auto) Immature Gran # (Auto) Neut # (Auto) Lymph # (Auto) Hughes # (Auto) Eos # (Auto) Baso # (Auto) APTT PTT Ratio VBG pH VBG pCO2 VBG pO2 VBG HCO3 VBG O2 Saturation VBG Base Excess Barometric Pressure Sodium Potassium Chloride Carbon Dioxide Anion Gap BUN Creatinine Est Cr Clr Drug Dosing Est GFR ( Amer) Est GFR (Non-Af Amer) BUN/Creatinine Ratio Glucose Estimat Average Glucose Hemoglobin A1c Lactate 2.9 H* 2.6 H* Calcium Total Bilirubin AST ALT Alkaline Phosphatase Troponin I 4.790 H* Total Protein Albumin Globulin Albumin/Globulin Ratio Urine Color Urine Appearance Urine pH Ur Specific [place] Urine Protein Urine Glucose (UA) Urine Ketones Urine Blood Urine Nitrite Urine Bilirubin Urine Urobilinogen Ur Leukocyte Esterase Hepatitis C Ab Screen 07/31/19 07/31/19 07/31/19 22:33 22:33 22:33 WBC RBC Hgb Hct MCV MCH MCHC RDW Std Deviation RDW Coeff of Nevin Plt Count MPV Immature Gran % (Auto) Neut % (Auto) Lymph % (Auto) Hughes % (Auto) Eos % (Auto) Baso % (Auto) Immature Gran # (Auto) Neut # (Auto) Lymph # (Auto) Hughes # (Auto) Eos # (Auto) Baso # (Auto) APTT PTT Ratio VBG pH VBG pCO2 VBG pO2 VBG HCO3 VBG O2 Saturation VBG Base Excess Barometric Pressure Sodium Potassium Chloride Carbon Dioxide Anion Gap BUN Creatinine Est Cr Clr Drug Dosing Est GFR ( Amer) Est GFR (Non-Af Amer) BUN/Creatinine Ratio Glucose Estimat Average Glucose 126 Hemoglobin A1c 6.0 H Lactate Calcium Total Bilirubin AST ALT Alkaline Phosphatase Troponin I 3.180 H* Total Protein Albumin Globulin Albumin/Globulin Ratio Urine Color Urine Appearance Urine pH Ur Specific [place] Urine Protein Urine Glucose (UA) Urine Ketones Urine Blood Urine Nitrite Urine Bilirubin Urine Urobilinogen Ur Leukocyte Esterase Hepatitis C Ab Screen Neg 07/31/19 07/31/19 08/01/19 22:33 23:09 00:10 WBC RBC Hgb Hct MCV MCH MCHC RDW Std Deviation RDW Coeff of Nevin Plt Count MPV Immature Gran % (Auto) Neut % (Auto) Lymph % (Auto) Hughes % (Auto) Eos % (Auto) Baso % (Auto) Immature Gran # (Auto) Neut # (Auto) Lymph # (Auto) Hughes # (Auto) Eos # (Auto) Baso # (Auto) APTT 42.2 H PTT Ratio 1.5 VBG pH VBG pCO2 VBG pO2 VBG HCO3 VBG O2 Saturation VBG Base Excess Barometric Pressure Sodium Potassium Chloride Carbon Dioxide Anion Gap BUN Creatinine Est Cr Clr Drug Dosing Est GFR ( Amer) Est GFR (Non-Af Amer) BUN/Creatinine Ratio Glucose Estimat Average Glucose Hemoglobin A1c Lactate 3.1 H* Calcium Total Bilirubin AST ALT Alkaline Phosphatase Troponin I Total Protein Albumin Globulin Albumin/Globulin Ratio Urine Color Yellow Urine Appearance Clear Urine pH 5.5 Ur Specific [place] 1.018 Urine Protein Negative Urine Glucose (UA) Negative Urine Ketones Trace H Urine Blood Negative Urine Nitrite Negative Urine Bilirubin Negative Urine Urobilinogen Negative Ur Leukocyte Esterase Negative Hepatitis C Ab Screen 08/01/19 08/01/19 08/01/19 07:11 07:11 07:12 WBC RBC Hgb Hct MCV MCH MCHC RDW Std Deviation RDW Coeff of Nevin Plt Count MPV Immature Gran % (Auto) Neut % (Auto) Lymph % (Auto) Hughes % (Auto) Eos % (Auto) Baso % (Auto) Immature Gran # (Auto) Neut # (Auto) Lymph # (Auto) Hughes # (Auto) Eos # (Auto) Baso # (Auto) APTT 68.9 H* PTT Ratio 2.5 VBG pH VBG pCO2 VBG pO2 VBG HCO3 VBG O2 Saturation VBG Base Excess Barometric Pressure Sodium 139 Potassium 4.7 Chloride 108 H Carbon Dioxide 26 Anion Gap 5.0 BUN 17 Creatinine 1.05 Est Cr Clr Drug Dosing 97.0 Est GFR ( Amer) 90.9 Est GFR (Non-Af Amer) 78.4 BUN/Creatinine Ratio 16.3 Glucose 114 H Estimat Average Glucose Hemoglobin A1c Lactate 3.0 H* Calcium 8.5 Total Bilirubin 0.3 AST 46 H ALT 56 Alkaline Phosphatase 63 Troponin I 2.180 H* Total Protein 6.4 Albumin 3.3 L Globulin 3.1 Albumin/Globulin Ratio 1.1 Urine Color Urine Appearance Urine pH Ur Specific [place] Urine Protein Urine Glucose (UA) Urine Ketones Urine Blood Urine Nitrite Urine Bilirubin Urine Urobilinogen Ur Leukocyte Esterase Hepatitis C Ab Screen 08/01/19 08/01/19 08/01/19 07:12 07:12 13:48 WBC 11.06 H RBC 4.72 Hgb 14.6 Hct 44.0 MCV 93.2 MCH 30.9 MCHC 33.2 RDW Std Deviation 46.8 H RDW Coeff of Nevin 13.7 Plt Count 249 MPV 9.8 Immature Gran % (Auto) 0.3 Neut % (Auto) 70.5 Lymph % (Auto) 18.7 Hughes % (Auto) 10.3 Eos % (Auto) 0.1 Baso % (Auto) 0.1 Immature Gran # (Auto) 0.03 H Neut # (Auto) 7.80 H Lymph # (Auto) 2.07 Hughes # (Auto) 1.14 H Eos # (Auto) 0.01 Baso # (Auto) 0.01 APTT 40.1 H PTT Ratio 1.4 VBG pH 7.35 L VBG pCO2 46 VBG pO2 62 VBG HCO3 25 VBG O2 Saturation 90.8 VBG Base Excess -1.0 Barometric Pressure 730.4 Sodium Potassium Chloride Carbon Dioxide Anion Gap BUN Creatinine Est Cr Clr Drug Dosing Est GFR ( Amer) Est GFR (Non-Af Amer) BUN/Creatinine Ratio Glucose Estimat Average Glucose Hemoglobin A1c Lactate Calcium Total Bilirubin AST ALT Alkaline Phosphatase Troponin I Total Protein Albumin Globulin Albumin/Globulin Ratio Urine Color Urine Appearance Urine pH Ur Specific [place] Urine Protein Urine Glucose (UA) Urine Ketones Urine Blood Urine Nitrite Urine Bilirubin Urine Urobilinogen Ur Leukocyte Esterase Hepatitis C Ab Screen
[2019-08-01 21:57] LABS: Partial Thromboplastin Ratio 2.8
[2019-08-01 22:12] LABS: Partial Thromboplastin Time 78.9 Seconds (21.0-31.0)
[2019-08-02] MEDS: IPRATROPIUM BROMIDE NEB SOLN 0.02% 2.5 ML VIAL INH SCH ×4 (00:49→19:06)
[2019-08-02] MEDS: LEVALBUTEROL 1.25MG/0.5ML NEB INH SCH ×4 (00:49→19:06)
[2019-08-02 05:04] LABS: Partial Thromboplastin Ratio 1.9
[2019-08-02 05:29] LABS: Partial Thromboplastin Time 52.1 Seconds (21.0-31.0)
[2019-08-02] MEDS: methylPREDNISolone 40 MG in SYRINGE 0 ML IV SCH ×2 (07:03→21:14)
[2019-08-02] MEDS ORDERED: PNEUMOCOCCAL Polysaccharide Vaccine 25mcg/0.5mL vial/Syr IM ONE (08:00)
[2019-08-02] MEDS: ESCITALOPRAM OXALATE 20 MG TAB PO SCH (08:21)
[2019-08-02] MEDS: lisinopriL 10 MG TAB PO SCH (08:21)
[2019-08-02] MEDS: ASPIRIN 81 MG ECTAB PO SCH (08:21)
[2019-08-02] MEDS: ROFLUMILAST 500 MCG TAB PO SCH (08:21)
[2019-08-02] MEDS: CHOLECALCIFEROL 1,000 UNITS 25 MCG TAB PO SCH (08:21)
[2019-08-02] MEDS: BuPROPion XL 300 MG TABCR PO SCH (08:21)
[2019-08-02] MEDS: DOXYCYCLINE HYCLATE 100 MG CAP PO SCH (08:21)
[2019-08-02] MEDS: NICOTINE 7 MG/24 HR TDSY TD SCH (08:22)
[2019-08-02] MEDS: FLUTICASONE/VILANTEROL 200/25MCG 14 PUFFS/INHALER INH SCH (08:22)
--- NOTE | 2019-08-02 10:32 | Cardiology Progress Note ---
Date of Service August 02, 2019 Assessment & Plan (1) Acute on chronic respiratory failure with hypoxia and hypercapnia: (2) Non-ST elevated myocardial infarction (non-STEMI): (3) Ischemic heart disease: (4) Systolic congestive heart failure with reduced left ventricular function, NYHA class 2: The patient's echocardiogram would suggest a previous anterior wall myocardial infarction most likely in the LAD distribution. It is an extensive infarct of which the cardiac troponins this admission do not reflect the size. So it is uncertain as to when the event occurred however he presented with exacerbation of COPD and probable systolic heart failure with a non-STEMI indicating most likely an extension of the original infarct. I think the patient should be treated appropriately for an ischemic cardiomyopathy. He will require an ischemic work-up. I had a long discussion with the patient and I recommended a cardiac catheterization to further evaluate his coronary artery disease. A second option could be a noninvasive approach at a later date with a pharmacologic nuclear stress test however, I do not believe that this is the right approach and I think an early invasive approach is warranted. By my exam today the patient is still wheezing. Since he is currently clinically stable from a cardiac standpoint and provided he has no clinical change, I think it is best that we wait until his lungs are better before having him lay on a catheterization table to perform angiography. I will reevaluate him tomorrow. Subjective The patient has no new complaints today. He is still short of breath with minimal activity. Review of Systems Review of Systems: All systems reviewed & are unremarkable except as noted in HPI & below Nothing additional to add. Physical Exam Physical Exam: General: no acute distress and stated age Head: normocephalic, no masses, lesions, tenderness or abnormalities Eyes: conjunctiva are pink and non-injected, sclera clear Neck: supple, no adenopathy, no bruits, normal jugular venous pulse, no hepatojugular reflux Chest: normal shape and normal respiratory effort Lungs: Wheezing throughout the lung parra. No rales or rhonchi. Cardiac Exam: - regular rate & rhythm, no murmurs gallops or rubs - normal S1, normal S2 Pulses: 2(+) throughout Abdomen: abdomen soft, non-tender, no abnormal masses and no hepatosplenomegaly Musculoskeletal: no gait disturbance, no joint inflammation, no deforming arthritis Extremities: no edema and no cyanosis Neuro: grossly normal exam Results & Data Vital Signs (Past 12 Hours) Vital Signs Temp Pulse Pulse Resp BP BP Pulse Ox 08/02/19 08:00 64 08/02/19 07:53 36.5 C 66 19 116/83 94 08/02/19 07:14 62 18 96 08/02/19 04:00 36.6 C 59 L 18 105/75 93 08/02/19 00:52 58 L 18 98 08/01/19 23:22 67 08/01/19 23:18 36.6 C 62 16 106/56 L 98 Laboratory Results Laboratory Results - last 24 hr 08/01/19 08/01/19 08/02/19 13:48 21:23 04:06 APTT 40.1 H 78.9 H* 52.1 H* PTT Ratio 1.4 2.8 1.9 Medications Administered Current Inpatient Medications Acetaminophen (Tylenol) 325 mg PO Q6H PRN PRN Reason: Pain or Fever Stop: 08/30/19 16:44 Aspirin (Ecotrin Ectab) 81 mg PO [facility] Stop: 08/31/19 08:59 Last Admin: 08/02/19 08:21 Dose: 81 mg Documented by: Bupropion [facility] ([facility]-Xl) [facility] Stop: 08/31/19 08:59 Last Admin: 08/02/19 08:21 Dose: 300 mg Documented by: Calcium Carbonate (Tums) 500 mg PO Q6H PRN PRN Reason: Heartburn Stop: 08/31/19 04:53 Doxycycline Hyclate (Vibramycin) 100 mg PO DAILY [facility] Stop: 08/06/19 09:01 Last Admin: 08/02/19 08:21 Dose: 100 mg Documented by: Escitalopram Oxalate (Lexapro Tab) 20 mg PO QAM [facility] Stop: 08/31/19 08:59 Last Admin: 08/02/19 08:21 Dose: 20 mg Documented by: Fluticasone/Vilanterol (Breo Ellipta 200/25 Mcg Inh) 1 puffs INH DAILY [facility] Stop: 09/01/19 08:59 Last Admin: 08/02/19 08:22 Dose: 1 puffs Documented by: Heparin Sodium/Dextrose (Heparin Sodium/Dextrose) 25,000 units in 500 mls @ 20 mls/hr IV .Q24H [facility]; Protocol Stop: 08/30/19 16:14 Last Titration: 04/12/20 07:00 Dose: 1,000 units/hr, 20 mls/hr Documented by: Methylprednisolone 40 mg/ (Syringe) 0.64 mls @ 1.5 mls/min IV Q8H [facility] Stop: 08/31/19 14:59 Last Admin: 08/02/19 07:03 Dose: 1.5 mls/min Documented by: Furosemide 20 mg/ Syringe 2 mls @ 4 mls/min IV ONE ONE Stop: 08/02/19 10:22 Ipratropium [place] (Atrovent 0.02% 0.5mg/2.5ml) 0.5 mg INH Q6R [facility] Stop: 08/31/19 12:59 Last Admin: 08/02/19 07:14 Dose: 0.5 mg Documented by: Levalbuterol HCl (Xopenex 1.25mg/0.5ml Neb) 1.25 mg INH Q6R [facility] Stop: 08/31/19 12:59 Last Admin: 08/02/19 07:14 Dose: 1.25 mg Documented by: Lisinopril (Zestril) 20 mg PO QAM [facility] Stop: 09/02/19 08:59 Miscellaneous (Remove Nicoderm Patch) 1 ea N/A DAILY@0859 [facility] Stop: 08/31/19 08:58 Last Admin: 08/02/19 08:21 Dose: Not Given Documented by: Nicotine (Nicoderm Cq) 7 mg TD [facility] Stop: 08/30/19 17:59 Last Admin: 08/02/19 08:22 Dose: Not Given Documented by: Roflumilast (Daliresp) [facility] Stop: 08/31/19 08:59 Last Admin: 08/02/19 08:21 Dose: 500 mcg Documented by: Vitamin D (Vitamin D3) 1,000 units PO QAM [facility] Stop: 08/31/19 08:59 Last Admin: 08/02/19 08:21 Dose: 1,000 units Documented by:
[2019-08-02 10:52] LABS: BUN Creatinine Ratio 23.7 (10-20); Calcium 8.8 mg/dl (8.5-10.1); Creatinine Clr Calc Pharmacy 116.6 ml/min; Est GFR (Non-African American) 95.8; Potassium 4.1 mmol/L (3.5-5.1)
[2019-08-02] MEDS ORDERED: FUROSEMIDE 20 MG in SYRINGE 0 ML IV ONE (11:00)
--- NOTE | 2019-08-02 11:50 | Pulmonology Progress Note ---
Date of Service August 02, 2019 Assessment & Plan (1) Acute on chronic respiratory failure with hypoxia and hypercapnia: -- Acute on chronic hypoxic hypercapnic respiratory failure Likely sec to COPD exacerbation, influenza negative Patient was not able to use Advair since last couple of weeks or so as he unfortunately cannot afford it. Continue with inhaled bronchodilators, steroids, antibiotics Maintain SPO2 between 88 to 92% BiPAP nightly and as needed shortness of breath --Severe COPD with emphysema FEV1 on the latest PFT was only 20% predicted Patient is on LABA/ICS along with lama at home. Patient is also on Daliresp. If the patient COPD is still not controlled the next up would be to add azithromycin thrice weekly. Patient's QTC was 401 at the time of admission he should be able to tolerate it. This could be thought off as an outpatient. --Morbid obesity Advised to lose weight with diet and exercise Needs outpatient polysomnography --Active smoker with marijuana use Importance of quitting both explained to the patient It was clearly explained that his lungs cannot tolerate anymore smoking or any insult from any inhaled toxins --Plan: Patient was not using his BiPAP overnight stating that he is claustrophobic and he does not like it. If this is the case we can hold off on the trilogy machine for the time being. This can be worked up as an outpatient by the volunteer services coordinator and have a talk with him again if he wants to use it. Patient is clinically improving he was saturating 96% on 3 L nasal cannula at rest at the time of examination. Went down to 2 L nasal cannula. Our goal should be saturation 88 to 92%. Decrease Solu-Medrol to 40 mg every 12 hours. Recommend social work getting involved in helping get patient LABA/ICS inhaler at home along with trilogy. Please note the above document was generated using voice recognition software. It may contain grammatical, syntax or spelling errors. (2) COPD with acute exacerbation: Admission and Anticipated Discharge Date Admission Date: July 31, 2019 Subjective Patient seen and examined at bedside. No acute distress, no adverse events overnight. Patient says that his breathing is improved. Denies any chest pain, decreasing cough. Denies any chest pain, no dizziness, no headache. No nausea or vomiting. Good appetite. Patient was not able to tolerate BiPAP overnight he says is too tight. Asking to go home. Review of Systems Review of Systems: All systems reviewed & are unremarkable except as noted in HPI & below Physical Exam Physical Exam: Constitutional: No acute distress HEENT: EOMI, PERRLA Respiratory system: Decreased air entry bilaterally, no crackles, no rhonchi, diffuse expiratory wheeze (improved from yesterday) CVS: S1-S2 positive, no murmurs or gallops, distant heart sounds Abdomen: Soft, nontender, nondistended, positive bowel sounds x4 Extremities: +2 pulses bilaterally radialis/ dorsalis pedis, no cyanosis, +1 edema bilateral lower extremity Neuro: Awake alert oriented x3 Psych: Normal mood and affect G/U: No Rand Skin: no rashes, warm and dry Lymphatic: no cervical or axillary lymphadenopathy Results & Data Results & [facility] ([facility]) Vital Signs (Past 12 Hours) Vital Signs Temp Pulse Pulse Resp BP BP Pulse Ox 08/02/19 08:00 64 08/02/19 07:53 36.5 C 66 19 116/83 94 08/02/19 07:14 62 18 96 08/02/19 04:00 36.6 C 59 L 18 105/75 93 08/02/19 00:52 58 L 18 98 08/01/19 07:12 08/02/19 10:22 PG Care Time/CCT Total # of Minutes Spent Total Time Spent with Patient: Total time spent is greater than 50% in coordination of care (as documented) at patient's floor/unit and/or counseling patient: Coding Level of Care Code 95906 Subseq Hosp Care Lvl 3 Diagnoses Acute on chronic respiratory failure with hypoxia and hypercapnia J96.21; J96.22 COPD with acute exacerbation J44.1
[2019-08-02] MEDS ORDERED: LORazepam 0.5 MG TAB PO STA (11:58)
[2019-08-02] MEDS: HEPARIN SODIUM/DEXTROSE 25,000 UNITS/500 ML BAG IV SCH ×3 (14:28→15:38)
--- NOTE | 2019-08-02 17:15 | Hospitalist Progress Note ---
Date of Service August 02, 2019 Assessment & Plan (1) Acute on chronic respiratory failure with hypoxia and hypercapnia: 58 year old male with history of (1)Acute on Chronic Hypoxic/Hypercapneic Respiratory failure secondary to Severe COPD with acute exacerbation, from Acute Bronchitis -- on 2 L of o2 via nasal cannula at baseline -- CT chest: no infiltrates, pneumonia -- improving today -- continue Doxycycline, Solumedrol q12h, Nebs q6h PRN Bipap -- continue usual Advair, Daliresp hold Spiriva -- appreciate Pulm SVC recommendations NSTEMI, Cardiomyopathy, likely Ischemic - trop 4.7 to 2.1 Echo: EF 20-25%, - chest pain free - continue heparin drip Lasix 20 mg IV one dose given -cardiac cath planned appreciate Cardio SVC recommendations Lactic acidosis from hypoxia, bet agonist - stable Tobacco Use disorder -counseled -nicotine patch Depression -continue home dose buproprion and escitalopram Hand tremors -denies history of alcohol use, monitor hand tremors Full Code status [phone] Disposition pending will need PT/OT eval Admission and Anticipated Discharge Date Admission Date: July 31, 2019 Subjective ff up for copd exacerbation, nstemi seen resting in bed, on 3 L NC appears more comfortable, not in distress states his breathing is improved today compared to yesterday less cough no fever/chills no chest pain, palpitations, dizziness no other symptoms Review of Systems Review of Systems: All systems reviewed & are unremarkable except as noted in HPI & below Physical Exam Physical Exam: General- oriented x 3, not in distress, speaks in sentences with no effort or accessory muscle use Eyes- anicteric Neck- no JVD Lungs- diminished but clear breath sounds bilaterally, no rales/wheezes Heart- normal rate, regular rhythm; no murmurs Abdomen- normal bowel sounds, nondistended, soft, nontender Extremities- no pretibial edema, no calf tenderness Neuro- alert, oriented x 3; no gross focal neurologic deficits Skin- warm & dry Results & Data Results & Data ([facility]) Vital Signs (Past 12 Hours) Vital Signs Temp Pulse Pulse Resp BP BP Pulse Ox 08/02/19 16:00 86 08/02/19 15:35 36.8 C 65 18 123/79 96 08/02/19 12:51 77 16 93 08/02/19 11:56 36.9 C 81 18 125/84 94 08/02/19 08:00 64 08/02/19 07:53 36.5 C 66 19 116/83 94 08/02/19 07:14 62 18 96 Laboratory Results Laboratory Results - last 24 hr 08/01/19 08/02/19 08/02/19 21:23 04:06 10:22 APTT 78.9 H* 52.1 H* PTT Ratio 2.8 1.9 Sodium 134 L Potassium 4.1 Chloride 106 Carbon Dioxide 31 Anion Gap -3.0 L BUN 21 H Creatinine 0.87 Est Cr Clr Drug Dosing 116.6 Est GFR ( Amer) 111.0 Est GFR (Non-Af Amer) 95.8 BUN/Creatinine Ratio 23.7 H Glucose 110 H Calcium 8.8
[2019-08-02] MEDS: CALCIUM CARBONATE 500 MG CHEWABLE TAB PO PRN (21:14)
[2019-08-03] MEDS: LEVALBUTEROL 1.25MG/0.5ML NEB INH SCH ×5 (01:06→23:36)
[2019-08-03] MEDS: IPRATROPIUM BROMIDE NEB SOLN 0.02% 2.5 ML VIAL INH SCH ×5 (01:06→23:36)
[2019-08-03 06:23] LABS: Partial Thromboplastin Ratio 1.3; Partial Thromboplastin Time 35.3 Seconds (21.0-31.0)
[2019-08-03] MEDS ORDERED: HEPARIN IV BOLUS 4,500 UNITS in SYRINGE 0 ML IV ONE (06:45)
[2019-08-03] MEDS: FLUTICASONE/VILANTEROL 200/25MCG 14 PUFFS/INHALER INH SCH ×2 (07:55→07:56)
[2019-08-03] MEDS: DOXYCYCLINE HYCLATE 100 MG CAP PO SCH (08:01)
[2019-08-03] MEDS: ASPIRIN 81 MG ECTAB PO SCH (08:03)
[2019-08-03] MEDS: ROFLUMILAST 500 MCG TAB PO SCH (08:03)
[2019-08-03] MEDS: methylPREDNISolone 40 MG in SYRINGE 0 ML IV SCH (08:04)
[2019-08-03] MEDS: NICOTINE 7 MG/24 HR TDSY TD SCH (08:04)
[2019-08-03] MEDS: lisinopriL 20 MG TAB PO SCH (08:05)
[2019-08-03] MEDS: CHOLECALCIFEROL 1,000 UNITS 25 MCG TAB PO SCH (08:05)
[2019-08-03] MEDS: BuPROPion XL 300 MG TABCR PO SCH (08:05)
[2019-08-03] MEDS: ESCITALOPRAM OXALATE 20 MG TAB PO SCH (08:05)
--- NOTE | 2019-08-03 09:48 | Cardiology Progress Note ---
Date of Service August 03, 2019 Assessment & Plan (1) Acute on chronic respiratory failure with hypoxia and hypercapnia: (2) Non-ST elevated myocardial infarction (non-STEMI): (3) Ischemic heart disease: (4) Systolic congestive heart failure with reduced left ventricular function, NYHA class 2: The patient had a decent diuresis yesterday and will give additional Lasix today. His wheezing has markedly improved and I suspect by tomorrow we can complete a coronary angiography. I have explained the risk benefit and intent to the procedure to the patient including the potential for catheter-based intervention such as balloon angioplasty or intracoronary stenting. The patient is willing to proceed and we will plan for first thing in the morning. Subjective The patient feels better this morning. He still short of breath with minimal activity. Review of Systems Review of Systems: All systems reviewed & are unremarkable except as noted in HPI & below Nothing additional to add. Physical Exam Physical Exam: General: no acute distress and stated age Head: normocephalic, no masses, lesions, tenderness or abnormalities Eyes: conjunctiva are pink and non-injected, sclera clear Neck: supple, no adenopathy, no bruits, normal jugular venous pulse, no hepatojugular reflux Chest: normal shape and normal respiratory effort Lungs: Minimal wheezing throughout the lung parra. Cardiac Exam: - regular rate & rhythm, no murmurs gallops or rubs - normal S1, normal S2 Pulses: 2(+) throughout Abdomen: abdomen soft, non-tender, no abnormal masses and no hepatosplenomegaly Musculoskeletal: no gait disturbance, no joint inflammation, no deforming arthritis Extremities: no edema and no cyanosis Neuro: grossly normal exam Results & Data Vital Signs (Past 12 Hours) Vital Signs Temp Pulse Resp BP BP Pulse Ox 08/03/19 07:15 61 18 94 08/03/19 07:07 36.8 C 64 19 117/79 96 08/03/19 04:09 36.8 C 60 18 118/49 L 97 08/03/19 01:06 74 18 93 08/03/19 00:16 37.0 C 65 18 132/70 95 Laboratory Results Laboratory Results - last 24 hr 08/02/19 08/03/19 10:22 05:53 APTT 35.3 H PTT Ratio 1.3 Sodium 134 L Potassium 4.1 Chloride 106 Carbon Dioxide 31 Anion Gap -3.0 L BUN 21 H Creatinine 0.87 Est Cr Clr Drug Dosing 116.6 Est GFR ( Amer) 111.0 Est GFR (Non-Af Amer) 95.8 BUN/Creatinine Ratio 23.7 H Glucose 110 H Calcium 8.8 Medications Administered Current Inpatient Medications Acetaminophen (Tylenol) 325 mg PO Q6H PRN PRN Reason: Pain or Fever Stop: 08/30/19 16:44 Aspirin (Ecotrin Ectab) 81 mg PO [facility] Stop: 08/31/19 08:59 Last Admin: 08/03/19 08:03 Dose: 81 mg Documented by: Bupropion HCl (Wellbutrin-Xl) 300 mg PO [facility] Stop: 08/31/19 08:59 Last Admin: 08/03/19 08:05 Dose: 300 mg Documented by: Calcium Carbonate (Tums) 500 mg PO Q6H PRN PRN Reason: Heartburn Stop: 08/31/19 04:53 Last Admin: 08/02/19 21:14 Dose: 500 mg Documented by: Doxycycline Hyclate (Vibramycin) 100 mg PO DAILY [facility] Stop: 08/06/19 09:01 Last Admin: 08/03/19 08:01 Dose: 100 mg Documented by: Escitalopram Oxalate (Lexapro Tab) 20 mg PO [facility] Stop: 08/31/19 08:59 Last Admin: 08/03/19 08:05 Dose: 20 mg Documented by: Fluticasone/Vilanterol (Breo Ellipta 200/25 Mcg Inh) 1 puffs INH DAILY [facility] Stop: 09/01/19 08:59 Last Admin: 08/03/19 07:56 Dose: 1 puffs Documented by: Furosemide (Lasix) [facility] Stop: 09/02/19 08:59 Heparin Sodium/Dextrose (Heparin Sodium/Dextrose) 25,000 units in 500 mls @ 24 mls/hr IV .[id number] [facility]; Protocol Stop: 08/30/19 16:14 Last Titration: 08/03/19 07:10 Dose: 1,200 units/hr, 24 mls/hr Documented by: Methylprednisolone 40 mg/ (Syringe) 0.64 mls @ 1.5 mls/min IV Q12 [facility] Stop: 09/01/19 20:59 Last Admin: 08/03/19 08:04 Dose: 1.5 mls/min Documented by: Sodium Chloride (Nss 1000ml) 1,000 mls @ 103 mls/hr IV .[id number] [facility] Stop: 09/03/19 00:00 Furosemide 20 mg/ Syringe 2 mls @ 4 mls/min IV ONE ONE Stop: 08/03/19 10:01 Ipratropium [place] (Atrovent 0.02% 0.5mg/2.5ml) 0.5 mg INH Q6R [facility] Stop: 08/31/19 12:59 Last Admin: 08/03/19 07:14 Dose: 0.5 mg Documented by: Levalbuterol HCl (Xopenex 1.25mg/0.5ml Neb) 1.25 mg INH Q6R [facility] Stop: 08/31/19 12:59 Last Admin: 08/03/19 07:14 Dose: 1.25 mg Documented by: Lisinopril (Zestril) 20 mg PO [facility]AAMG [facility] Stop: 09/02/19 08:59 Last Admin: 08/03/19 08:05 Dose: 20 mg Documented by: Miscellaneous (Remove Nicoderm Patch) 1 ea N/A DAILY@0859 [facility] Stop: 08/31/19 08:58 Last Admin: 08/03/19 07:55 Dose: 1 ea Documented by: Nicotine (Nicoderm Cq) 7 mg TD [facility] Stop: 08/30/19 17:59 Last Admin: 08/03/19 08:04 Dose: 7 mg Documented by: Roflumilast (Daliresp) 500 mcg PO [facility] Stop: 08/31/19 08:59 Last Admin: 08/03/19 08:03 Dose: 500 mcg Documented by: Vitamin D (Vitamin D3) 1,000 units PO QAM [facility] Stop: 08/31/19 08:59 Last Admin: 08/03/19 08:05 Dose: 1,000 units Documented by:
[2019-08-03] MEDS ORDERED: FUROSEMIDE 20 MG in SYRINGE 0 ML IV ONE (10:00)
[2019-08-03] MEDS: FUROSEMIDE 20 MG TAB PO SCH (10:05)
--- NOTE | 2019-08-03 10:16 | Pulmonology Progress Note ---
Date of Service August 03, 2019 Assessment & Plan (1) Systolic congestive heart failure with reduced left ventricular function, NYHA class 2: Impression: 58-year-old male with chronic hypoxemic respiratory failure and advanced obstructive lung disease admitted with increasing shortness of sara ath and progressive acute on chronic hypoxemic respiratory failure likely multifactorial due to combinations of potential systolic heart failure combined with acute exacerbation of COPD. He is improved with therapy. Recommendations: 1. COPD: Bronchospasm appears significantly improved. Continue doxycycline, Breo, and Daliresp. We will add the patient Spiriva back to his regiment. Change steroids to oral prednisone. Patient will require coordination with case management prior to discharge to ensure he has access and cannot afford his medications in the long-term. Recommended that he avoid smoking marijuana. If he needs to use substances containing THC, it is recommended that he pursue edibles to avoid additional damage to his lung. He had been referred for lung transplant previously but did not want to pursue this in the long-term. 2. Acute on chronic hypoxemic respiratory failure: Multifactorial. Continue diuresis per cardiology and primary service. Maintain oxygen saturations around 90% given cardiac ischemia as well. 3. Heart failure: Discussed with cardiology. Anticipate going to the [facility] tomorrow for diagnostic angiography. 5. (2) Non-ST elevated myocardial infarction (non-STEMI): (3) Acute respiratory acidosis: (4) COPD with acute exacerbation: Admission and Anticipated Discharge Date Admission Date: July 31, 2019 Subjective Patient feels slightly better. He continues to cough and expectorate some phlegm. No hemoptysis. No chest pain or palpitations. His lower extremity edema is better. He is not really ambulatory. It is anticipated that he will go to the cardiac [facility] for diagnostic angiography in the a.m.. No fevers chills or night sweats overnight. Review of Systems Review of Systems: Unchanged from prior Physical Exam Physical Exam: Constitutional: No acute distress HEENT: EOMI, PERRLA Respiratory system: Decreased air entry bilaterally, no crackles, no rhonchi, diffuse expiratory wheeze (improved from yesterday) CVS: S1-S2 positive, no murmurs or gallops, distant heart sounds Abdomen: Soft, nontender, nondistended, positive bowel sounds x4 Extremities: +2 pulses bilaterally radialis/ dorsalis pedis, no cyanosis, +1 edema bilateral lower extremity Neuro: Awake alert oriented x3 Psych: Normal mood and affect G/U: No Rand Skin: no rashes, warm and dry Lymphatic: no cervical or axillary lymphadenopathy Results & Data Results & Data ([facility]) Vital Signs (Past 12 Hours) Vital Signs Temp Pulse Resp BP BP Pulse Ox 08/03/19 07:15 61 18 94 08/03/19 07:07 36.8 C 64 19 117/79 96 08/03/19 04:09 36.8 C 60 18 118/49 L 97 08/03/19 01:06 74 18 93 08/03/19 00:16 37.0 C 65 18 132/70 95 Laboratory Results 08/01/19 07:12 08/02/19 10:22 Diagnostic Findings No new imaging Echocardiogram with EF of 20 to 25% with apical akinesis and anterior wall akinesis with septal akinesis. PG Care Time/CCT Total # of Minutes Spent Total Time Spent with Patient: Total time spent is greater than 50% in coordination of care (as documented) at patient's floor/unit and/or counseling patient: Coding Level of Care Code 33393 Subseq Hosp Care Lvl 3 Diagnoses Systolic congestive heart failure with reduced left ventricular function, NYHA class 2 I50.20 Non-ST elevated myocardial infarction (non-STEMI) I21.4 Acute respiratory acidosis E87.2 COPD with acute exacerbation J44.1
--- NOTE | 2019-08-03 11:01 | Hospitalist Progress Note ---
Date of Service August 03, 2019 Assessment & Plan (1) Acute on chronic respiratory failure with hypoxia and hypercapnia: 58 year old male with history of (1)Acute on Chronic Hypoxic/Hypercapneic Respiratory failure secondary to Severe COPD with acute exacerbation, from Acute Bronchitis -- on 2 L of o2 via nasal cannula at baseline -- patient reports not being to use Advair for a few weeks prior to admission due to financial challenges -- CT chest: no infiltrates, pneumonia -- continues to improve -- continue Doxycycline, Solumedrol q12h--> prednisone 20mg BID, Nebs q6h--> PRN PRN Bipap -- continue usual Advair, Incruse Ellipta, Daliresp -- appreciate Pulm SVC recommendations NSTEMI, Cardiomyopathy, likely Ischemic - trop 4.7 to 2.1 Echo: EF 20-25%, - chest pain free - continue heparin drip Lasix 20 mg IV--> changed to 20mg po daily -cardiac cath planned for tomorrow appreciate Cardio SVC recommendations Lactic acidosis from hypoxia, beta agonist - stable Tobacco Use disorder -counseled -nicotine patch Depression -continue home dose buproprion and escitalopram Hand tremors -denies history of alcohol use, monitor hand tremors Full Code status [phone] Disposition pending anticipate d/c home when medically stable will need to ensure patient has access to maintenance inhalers upon discharge will need PT/OT eval Admission and Anticipated Discharge Date Admission Date: July 31, 2019 Subjective Follow-up for acute COPD exacerbation, non-ST elevation ID seen resting in bed, sitting up, on 2 L nasal cannula comfortable, not in distress states breathing is improving gradually, less cough no chest pain, palpitations, dizziness no other symptoms Review of Systems Review of Systems: All systems reviewed & are unremarkable except as noted in HPI & below Physical Exam Physical Exam: General- oriented x 3, not in distress, speaks in sentences with no effort or accessory muscle use Eyes- anicteric Neck- no JVD Lungs- mild expiratory wheeze bilaterally Heart- normal rate, regular rhythm; no murmurs Abdomen- normal bowel sounds, nondistended, soft, nontender Extremities- trace pretibial edema, no calf tenderness Neuro- alert, oriented x 3; no gross focal neurologic deficits Skin- warm & dry Results & Data Results & Data ([facility]) Vital Signs (Past 12 Hours) Vital Signs Temp Pulse Pulse Resp BP BP Pulse Ox 08/03/19 09:41 83 08/03/19 07:15 61 18 94 08/03/19 07:07 36.8 C 64 19 117/79 96 08/03/19 04:09 36.8 C 60 18 118/49 L 97 08/03/19 01:06 74 18 93 08/03/19 00:16 37.0 C 65 18 132/70 95
[2019-08-03] MEDS: UMECLIDINIUM BROMIDE 62.5MCG/BLISTER 7 PUFFS/INHALER INH SCH (12:08)
[2019-08-03 12:51] LABS: Partial Thromboplastin Ratio 1.7
[2019-08-03 12:53] LABS: Partial Thromboplastin Time 46.8 Seconds (21.0-31.0)
[2019-08-03] MEDS: ALBUT/IPRATROP 3MG/0.5MG NEB 3 ML VIAL NEB PRN (13:40)
[2019-08-03] MEDS ORDERED: XOPENEX/ATROVENT 1.25mg/0.5MG NEB COMBO NEB SCH (14:15)
[2019-08-03] MEDS: HEPARIN SODIUM/DEXTROSE 25,000 UNITS/500 ML BAG IV SCH (15:01)
[2019-08-03] MEDS: CALCIUM CARBONATE 500 MG CHEWABLE TAB PO PRN ×2 (19:23→19:35)
[2019-08-03] MEDS: predniSONE 20 MG TAB PO SCH (19:52)
[2019-08-04] MEDS: LEVALBUTEROL 1.25MG/0.5ML NEB INH SCH ×3 (03:28→11:04)
[2019-08-04] MEDS: IPRATROPIUM BROMIDE NEB SOLN 0.02% 2.5 ML VIAL INH SCH ×3 (03:28→11:04)
[2019-08-04 07:30] LABS: Partial Thromboplastin Ratio 1.5; Partial Thromboplastin Time 41.3 Seconds (21.0-31.0)
[2019-08-04] MEDS ORDERED: HEPARIN IV BOLUS 4,000 UNITS in SYRINGE 0 ML IV ONE (07:50)
[2019-08-04] MEDS ORDERED: MIDAZOLAM HCL 1 MG/ML 2ML VIAL ONE ×2 (07:50→08:09)
[2019-08-04] MEDS ORDERED: NiCARDipine HCL INJ 2.5 MG/ML 10 ML AMP ONE (07:50)
[2019-08-04] MEDS ORDERED: HEPARIN (PORCINE) 1000 UNIT/ML 10 ML (CATH LAB USE ONLY) ONE (07:50)
[2019-08-04] MEDS ORDERED: NITROGLYCERIN/D5W 100MCG/ML 20ML SYR ONE (07:51)
[2019-08-04] MEDS: fentaNYL citrate 100 MCG/2 ML VIAL ONE ×2 (08:31→08:39)
--- NOTE | 2019-08-04 09:30 | Cardiac Catheterization ---
Date of Service August 04, 2019 Cardiac Cath Report Cardiac Cath Report Procedure: 1. Coronary angiography History: This is a 58-year-old male patient with severe bullous emphysema and COPD who presented with respiratory extremis due to an exacerbation of his COPD and heart failure. An echocardiogram was obtained which indicated an ischemic cardiomyopathy with wall motion abnormalities of the anterior and apical myocardium. The patient also had an elevation in his cardiac troponins with a non-STEMI. Procedure summary: After informed consent was obtained, the patient was taken to the cardiac catheterization lab where he was prepped and draped in the usual manner for right transradial approach. The patient had good collateral flow in his palmar arch with a negative Barbeau. Retrograde cylinder technique was utilized to gain access to the right radial artery. Preformed 5 [place] diagnostic catheters were utilized for the coronary angiograms. There was some difficulty cannulating the right coronary artery which had a unusual takeoff but we were eventually successful after multiple catheters with an AR-2. Following the procedure the patient was returned to his room in stable condition. ACC data: Start time 8:10 AM End time 8:48 AM Opening aortic pressure 98/69 Closing aortic pressure 103/75 LV pressurevalve not crossed Sedation 3 mg of intravenous Versed and 25 mcg of fentanyl intravenously IV fluid 24 cc normal saline Contrast 180 cc of Optiray Fluoroscopy 10.6 minutes Radiation 1742 mGy DAP 178 cGy/m Right dominant system AUC score 9 Coronary angiography: Selective injections of the left coronary artery revealed the left main trunk to be widely patent. There is evidence of calcium and minor luminal irregularity of the proximal LAD the LAD trifurcates into a large septal thread grinder tool and equally sized diagonal and main coronary artery which extend to the apex of the heart. The LAD system is widely patent. The left circumflex consist mainly of 3 marginal branches. The first marginal branch is large and the second and third are medium to small in size. The left circumflex system is widely patent. The right coronary artery has an unusual takeoff. It took multiple catheters but the best fit seemed to be an AR-2. Injections into the right coronary artery reveal minor luminal irregularities but the right coronary system is widely patent. The right coronary artery is dominant. Summary: Except for some minor luminal irregularities and evidence of calcium at the proximal LAD the patient's coronary anatomy is widely patent. Recommendations: Recommendations are for medical management of the patient's minor coronary artery disease.
[2019-08-04] MEDS: HEPARIN SODIUM/DEXTROSE 25,000 UNITS/500 ML BAG IV SCH ×2 (09:49→10:16)
[2019-08-04] MEDS: ROFLUMILAST 500 MCG TAB PO SCH (09:58)
[2019-08-04] MEDS: FUROSEMIDE 20 MG TAB PO SCH (09:59)
[2019-08-04] MEDS: BuPROPion XL 300 MG TABCR PO SCH (09:59)
[2019-08-04] MEDS: predniSONE 20 MG TAB PO SCH ×2 (09:59→20:07)
[2019-08-04] MEDS: CHOLECALCIFEROL 1,000 UNITS 25 MCG TAB PO SCH (09:59)
[2019-08-04] MEDS: lisinopriL 20 MG TAB PO SCH (09:59)
[2019-08-04] MEDS: ASPIRIN 81 MG ECTAB PO SCH (09:59)
[2019-08-04] MEDS: DOXYCYCLINE HYCLATE 100 MG CAP PO SCH (09:59)
[2019-08-04] MEDS: ESCITALOPRAM OXALATE 20 MG TAB PO SCH (09:59)
[2019-08-04] MEDS: SODIUM CHLORIDE 0.9% 1000ML 1,000 ML IV SCH ×4 (10:00→21:31)
[2019-08-04] MEDS: UMECLIDINIUM BROMIDE 62.5MCG/BLISTER 7 PUFFS/INHALER INH SCH (10:15)
[2019-08-04] MEDS: NICOTINE 7 MG/24 HR TDSY TD SCH (10:15)
[2019-08-04] MEDS ORDERED: HEPARIN SODIUM/DEXTROSE 25,000 UNITS/500 ML BAG IV SCH (11:15)
[2019-08-04] MEDS ORDERED: Nursing to Pharmacy Communication ONE (11:17)
--- NOTE | 2019-08-04 11:20 | Cardiology Progress Note ---
Date of Service August 04, 2019 Assessment & Plan (1) Acute on chronic respiratory failure with hypoxia and hypercapnia: (2) Non-ST elevated myocardial infarction (non-STEMI): (3) Ischemic heart disease: (4) Systolic congestive heart failure with reduced left ventricular function, NYHA class 2: The patient had patent coronary anatomy by angiography today. The patient may have had a apical ballooning syndrome due to stress. I will start him on a beta-jean-paul today as his lungs seem to have cleared. Hopefully, his myocardium will return after appropriate treatment. We did a fair amount of catheter exchanges during the heart catheterization and therefore I am going to continue IV heparin at least through this evening. I am also going to start the patient on Plavix. Subjective I saw the patient after the heart catheterization. I answered all questions. He feels well. Review of Systems Review of Systems: All systems reviewed & are unremarkable except as noted in HPI & below Nothing additional to add. Physical Exam Physical Exam: General: no acute distress and stated age Head: normocephalic, no masses, lesions, tenderness or abnormalities Eyes: conjunctiva are pink and non-injected, sclera clear Neck: supple, no adenopathy, no bruits, normal jugular venous pulse, no hepatojugular reflux Chest: normal shape and normal respiratory effort Lungs: clear to auscultation and percussion Cardiac Exam: - regular rate & rhythm, no murmurs gallops or rubs - normal S1, normal S2 Pulses: 2(+) throughout Abdomen: abdomen soft, non-tender, no abnormal masses and no hepatosplenomegaly Musculoskeletal: no gait disturbance, no joint inflammation, no deforming arthritis Extremities: The cast site looks clean and dry with a hemo-band in place. Neuro: grossly normal exam Results & Data Vital Signs (Past 12 Hours) Vital Signs Temp Pulse Resp BP BP Pulse Ox 08/04/19 11:05 65 18 117/77 98 08/04/19 10:35 68 18 121/83 98 08/04/19 10:05 68 18 121/76 98 08/04/19 09:50 69 18 120/75 95 08/04/19 09:35 76 20 114/80 96 08/04/19 09:15 60 18 113/76 95 08/04/19 09:00 74 18 115/72 96 08/04/19 07:19 36.8 C 63 20 125/87 99 04/14/20 07:15 60 18 98 08/04/19 03:48 36.7 C 55 L 18 108/58 L 98 08/04/19 03:28 61 18 96 08/04/19 00:00 37.1 C 58 L 19 116/71 96 08/03/19 23:36 80 18 94 Laboratory Results Laboratory Results - last 24 hr 08/03/19 08/04/19 12:14 06:37 APTT 46.8 H* 41.3 H PTT Ratio 1.7 1.5 Medications Administered Current Inpatient Medications Acetaminophen (Tylenol) 325 mg PO Q6H PRN PRN Reason: Pain or Fever Stop: 08/30/19 16:44 Albuterol (Duoneb) 3 ml NEB QIDR PRN PRN Reason: Dyspnea Stop: 09/02/19 10:59 Last Admin: 08/03/19 13:40 Dose: 3 ml Documented by: Aspirin (Ecotrin Ectab) 81 mg PO [facility] Stop: 08/31/19 08:59 Last Admin: 08/04/19 09:59 Dose: 81 mg Documented by: Bupropion HCl (Wellbutrin-Xl) 300 mg PO [facility] Stop: 08/31/19 08:59 Last Admin: 08/04/19 09:59 Dose: 300 mg Documented by: Calcium Carbonate (Tums) 500 mg PO Q6H PRN PRN Reason: Heartburn Stop: 08/31/19 04:53 Last Admin: 08/03/19 19:23 Dose: 500 mg Documented by: Clopidogrel Bisulfate (Plavix) 75 mg PO [facility] Stop: 09/03/19 11:14 Doxycycline Hyclate (Vibramycin) 100 mg PO DAILY [facility] Stop: 08/06/19 09:01 Last Admin: 08/04/19 09:59 Dose: 100 mg Documented by: Escitalopram [facility]alate ([facility]apro Tab) [facility] Stop: 08/31/19 08:59 Last Admin: 08/04/19 09:59 Dose: 20 mg Documented by: Fluticasone/Vilanterol (Breo Ellipta 200/25 Mcg Inh) 1 puffs INH DAILY [facility] Stop: 09/01/19 08:59 Last Admin: 08/03/19 07:56 Dose: 1 puffs Documented by: Furosemide (Lasix) [facility] Stop: 09/02/19 08:59 Last Admin: 08/04/19 09:59 Dose: 20 mg Documented by: Heparin Sodium/Dextrose () 1 ea IV ONE ONE; Protocol Stop: 08/04/19 11:14 Sodium Chloride (Nss 1000ml) 1,000 mls @ 80 mls/hr IV .[id number] [facility] Stop: 09/03/19 09:29 Last Admin: 08/04/19 10:00 Dose: 80 mls/hr Documented by: Heparin Sodium/Dextrose (Heparin Sodium/Dextrose) 25,000 units in 500 mls @ 0.02 mls/hr IV .Q24H [facility]; Protocol Stop: 09/03/19 11:14 Ipratropium [place] (Atrovent 0.02% 0.5mg/2.5ml) 0.5 mg INH Q4R [facility] Stop: 09/02/19 14:59 Last Admin: 08/04/19 11:04 Dose: 0.5 mg Documented by: Levalbuterol HCl (Xopenex 1.25mg/0.5ml Neb) 1.25 mg INH Q4R [facility] Stop: 09/02/19 14:59 Last Admin: 08/04/19 11:04 Dose: 1.25 mg Documented by: Lisinopril (Zestril) 20 mg PO [facility] Stop: 09/02/19 08:59 Last Admin: 08/04/19 09:59 Dose: 20 mg Documented by: Metoprolol Succinate (Toprol Xl) 25 mg PO [facility] Stop: 09/03/19 10:59 Miscellaneous (Remove Nicoderm Patch) 1 ea N/A DAILY@0859 [facility] Stop: 08/31/19 08:58 Last Admin: 08/03/19 07:55 Dose: 1 ea Documented by: Nicotine (Nicoderm Cq) 7 mg TD [facility] Stop: 08/30/19 17:59 Last Admin: 08/04/19 10:15 Dose: Not Given Documented by: Prednisone (Prednisone) 20 mg PO BID [facility] Stop: 09/02/19 20:59 Last Admin: 08/04/19 09:59 Dose: 20 mg Documented by: Roflumilast (Daliresp) 500 mcg PO [facility] Stop: 08/31/19 08:59 Last Admin: 08/04/19 09:58 Dose: 500 mcg Documented by: Umeclidinium [place] (Incruse Ellipta) 1 puffs INH DAILY [facility] Stop: 09/02/19 10:14 Last Admin: 08/04/19 10:15 Dose: Not Given Documented by: Vitamin D (Vitamin D3) 1,000 units PO QAM [facility] Stop: 08/31/19 08:59 Last Admin: 08/04/19 09:59 Dose: 1,000 units Documented by:
--- NOTE | 2019-08-04 11:37 | Pulmonology Progress Note ---
Date of Service August 04, 2019 Assessment & Plan (1) Systolic congestive heart failure with reduced left ventricular function, NYHA class 2: Impression: 58-year-old male with chronic hypoxemic respiratory failure and advanced obstructive lung disease admitted with increasing shortness of sara ath and progressive acute on chronic hypoxemic respiratory failure likely multifactorial due to combinations of potential systolic heart failure combined with acute exacerbation of COPD. He is improved with therapy. Recommendations: 1. COPD: Bronchospasm appears significantly improved. Continue doxycycline. The patient states he cannot use dry powder inhalers. His is brought in his home Spiriva and Advair which should be reinitiated. Can stop the Breo and Incruse. Would discontinued scheduled nebs therapy and transition to every 6 hours as needed. Increased mobility recommended. The patient should get out of bed to the chair as much as possible and ambulate on the floor. 2. Acute on chronic hypoxemic respiratory failure: Multifactorial. Continue diuresis per cardiology and primary service. Maintain oxygen saturations around 90% given cardiac ischemia as well. 3. Heart failure: Per cardiology. No evidence of coronary disease. Unclear if this represents stress-induced cardiomyopathy. Appears euvolemic currently. 4. Patient appears to be improving significantly from a pulmonary standpoint. Will need to ensure outpatient follow-up with Dr. sidhu at the time of discharge. (2) Non-ST elevated myocardial infarction (non-STEMI): (3) Acute respiratory acidosis: (4) COPD with acute exacerbation: Admission and Anticipated Discharge Date Admission Date: July 31, 2019 Subjective Patient seen and examined. EMR reviewed. The patient states he is clinically better this morning. Less cough and wheezing. He completed his cardiac te terization this morning which showed no evidence of coronary disease. He has been initiated on beta-blockers and angiotensin-converting enzyme inhibitors. His lower extremity edema remains under good control. Review of Systems Review of Systems: Unchanged from prior Physical Exam Physical Exam: Constitutional: No acute distress HEENT: EOMI, PERRLA Respiratory system: Decreased air entry bilaterally, no crackles, no rhonchi, diffuse expiratory wheeze (improved from yesterday) CVS: S1-S2 positive, no murmurs or gallops, distant heart sounds Abdomen: Soft, nontender, nondistended, positive bowel sounds x4 Extremities: +2 pulses bilaterally radialis/ dorsalis pedis, no cyanosis, +1 edema bilateral lower extremity Neuro: Awake alert oriented x3 Psych: Normal mood and affect G/U: No Rand Skin: no rashes, warm and dry Lymphatic: no cervical or axillary lymphadenopathy Results & Data Results & Data ([facility]) Vital Signs (Past 12 Hours) Vital Signs Temp Pulse Resp BP BP Pulse Ox 08/04/19 11:05 65 18 117/77 98 08/04/19 10:35 68 18 121/83 98 08/04/19 10:05 68 18 121/76 98 08/04/19 09:50 69 18 120/75 95 08/04/19 09:35 76 20 114/80 96 08/04/19 09:15 60 18 113/76 95 08/04/19 09:00 74 18 115/72 96 08/04/19 07:19 36.8 C 63 20 125/87 99 08/04/19 07:15 60 18 98 08/04/19 03:48 36.7 C 55 L 18 108/58 L 98 08/04/19 03:28 61 18 96 08/04/19 00:00 37.1 C 58 L 19 116/71 96 08/03/19 23:36 80 18 94 Laboratory Results 08/01/19 07:12 08/02/19 10:22 Diagnostic Findings No new films PG Care Time/CCT Total # of Minutes Spent Total Time Spent with Patient: Total time spent is greater than 50% in coordination of care (as documented) at patient's floor/unit and/or counseling patient: Coding Level of Care Code 22833 Subseq Hosp Care Lvl 2 Diagnoses Systolic congestive heart failure with reduced left ventricular function, NYHA class 2 I50.20 Non-ST elevated myocardial infarction (non-STEMI) I21.4 Acute respiratory acidosis E87.2 COPD with acute exacerbation J44.1
[2019-08-04] MEDS: CLOPIDOGREL BISULFATE 75 MG TAB PO SCH (11:54)
[2019-08-04] MEDS: METOPROLOL SUCC 25MG EXT REL TAB PO SCH (11:54)
[2019-08-04] MEDS: Heparin IV Standard *NO* Bolus IV SCH ×2 (13:41→13:42)
[2019-08-04] MEDS: ADVAIR INH SCH ×2 (13:47→20:08)
[2019-08-04] MEDS: SPIRIVA RESPIMAT INH SCH (13:51)
[2019-08-04] MEDS: ALBUT/IPRATROP 3MG/0.5MG NEB 3 ML VIAL NEB PRN (15:27)
[2019-08-04] MEDS: ACETAMINOPHEN 325 MG TAB PO PRN (16:16)
--- NOTE | 2019-08-04 16:44 | Hospitalist Progress Note ---
Date of Service August 04, 2019 Assessment & Plan (1) Acute on chronic respiratory failure with hypoxia and hypercapnia: 58 year old male with history of Acute on Chronic Hypoxic/Hypercapneic Respiratory failure secondary to Severe COPD with acute exacerbation, from Acute Bronchitis -- on 2 L of o2 via nasal cannula at baseline -- patient reports not being to use Advair for a few weeks prior to admission due to financial challenges -- CT chest: no infiltrates, pneumonia -- weaned off bipap, now back to 2 L nasal cannula continues to improve -- continue Doxycycline, prednisone 20mg BID, Nebs scheduled and PRN PRN Bipap -- continue usual Advair, Spiriva, Daliresp patient's to bring his usual Advair and Spiriva as he cannot tolerated formulary Breo and Incruse -- appreciate Pulm SVC recommendations NSTEMI, Cardiomyopathy - possible apical ballooning secondary to stress - trop 4.7 to 2.1 Echo: EF 20-25%, - chest pain free - placed on heparin drip Lasix 20 mg IV--> changed to 20mg po daily - s/p cardiac cath 08/04/19: patent coronaries - Metoprolol and Plavix started ASA continued Lactic acidosis from hypoxia, beta agonist - stable Tobacco Use disorder -counseled -nicotine patch Depression -continue home dose buproprion and escitalopram Hand tremors -denies history of alcohol use, monitor hand tremors Full Code status [phone] Disposition pending anticipate d/c home when medically stable- possibly tomorrow will need to ensure patient has access to all maintenance inhalers upon discharge to prevent recurrence of exacerbation- protective services case worker on board will need PT/OT eval Admission and Anticipated Discharge Date Admission Date: July 31, 2019 Subjective ff up for COPD exacerbation, NSTEMI seen resting in bed, s/p cardia cath states he continues to feel improved no chest pain, palpitations, dizziness no dyspnea, back to baseline 2 L, less cough no other symptoms Review of Systems Review of Systems: All systems reviewed & are unremarkable except as noted in HPI & below Physical Exam Physical Exam: General- oriented x 3, not in distress, speaks in sentences with no effort or accessory muscle use Eyes- anicteric Neck- no JVD Lungs- mild expiratory wheeze bilaterally- less than yesterday Heart- normal rate, regular rhythm; no murmurs Abdomen- normal bowel sounds, nondistended, soft, nontender Extremities- no pretibial edema, no calf tenderness right wrist- no hematoma, no edema Neuro- alert, oriented x 3; no gross focal neurologic deficits Skin- warm & dry Results & Data Results & Data ([facility]) Vital Signs (Past 12 Hours) Vital Signs Temp Pulse Pulse Resp BP BP Pulse Ox 08/04/19 16:28 57 L 08/04/19 16:11 57 L 08/04/19 15:39 36.6 C 57 L 22 110/73 96 08/04/19 15:28 54 L 18 94 08/04/19 14:05 62 16 109/76 98 08/04/19 13:05 64 16 106/64 98 08/04/19 12:05 37 C 62 18 123/79 96 08/04/19 11:05 65 18 117/77 98 08/04/19 10:35 68 18 121/83 98 08/04/19 10:05 68 18 121/76 98 08/04/19 09:50 69 18 120/75 95 08/04/19 09:35 76 20 114/80 96 08/04/19 09:15 60 18 113/76 95 08/04/19 09:00 74 18 115/72 96 08/04/19 07:19 36.8 C 63 20 125/87 99 08/04/19 07:15 60 18 98 Laboratory Results Laboratory Results - last 24 hr 08/04/19 06:37 APTT 41.3 H PTT Ratio 1.5
[2019-08-04] MEDS: CALCIUM CARBONATE 500 MG CHEWABLE TAB PO PRN (21:29)
[2019-08-05] MEDS: ALBUT/IPRATROP 3MG/0.5MG NEB 3 ML VIAL NEB PRN (00:33)
[2019-08-05] MEDS ORDERED: LORazepam 0.5 MG TAB PO STA (01:29)
[2019-08-05] MEDS ORDERED: ALBUT/IPRATROP 3MG/0.5MG NEB 3 ML VIAL NEB ONE (02:30)
[2019-08-05 07:35] LABS: Eosinophils # (auto) 0.04 K/uL (0-0.5); Eosinophils % (auto) 0.4 %; Hematocrit (blood only) 41.9 % (42-52); Immature Granulocytes # (auto) 0.05 K/uL (0.00-0.02); Immature Granulocytes % (auto) 0.4 %; Lymphocytes # (auto) 2.36 K/uL (1.2-3.4); Lymphocytes % (auto) 21.1 %; Mean Corpuscular Hemoglobin 30.9 pg (25-34); Mean Corpuscular Hgb Conc 33.4 g/dL (32-36); Mean Corpuscular Volume 92.5 fL (80-100); Mean Platelet Volume 9.6 fL (7.4-10.4); Monocytes # (auto) 1.27 K/uL (0.11-0.59); Monocytes % (auto) 11.3 %; Neutrophils # (auto) 7.49 K/uL (1.4-6.5); Neutrophils % (auto) 66.8 %; Platelet Count 228 K/uL (130-400); RDW Coefficient of Variation 13.4 % (11.5-14.5); RDW Standard Deviation 45.5 fL (36.4-46.3); Red Blood Count 4.53 M/uL (4.7-6.1); White Blood Count 11.21 K/uL (4.8-10.8)
[2019-08-05] MEDS: ASPIRIN 81 MG ECTAB PO SCH (08:04)
[2019-08-05] MEDS: DOXYCYCLINE HYCLATE 100 MG CAP PO SCH (08:05)
[2019-08-05] MEDS: METOPROLOL SUCC 25MG EXT REL TAB PO SCH (08:05)
[2019-08-05] MEDS: ROFLUMILAST 500 MCG TAB PO SCH (08:05)
[2019-08-05] MEDS: CLOPIDOGREL BISULFATE 75 MG TAB PO SCH (08:05)
[2019-08-05] MEDS: BuPROPion XL 300 MG TABCR PO SCH (08:05)
[2019-08-05] MEDS: lisinopriL 20 MG TAB PO SCH (08:06)
[2019-08-05] MEDS: CHOLECALCIFEROL 1,000 UNITS 25 MCG TAB PO SCH (08:06)
[2019-08-05] MEDS: ESCITALOPRAM OXALATE 20 MG TAB PO SCH (08:06)
[2019-08-05] MEDS: FUROSEMIDE 20 MG TAB PO SCH (08:06)
[2019-08-05] MEDS: predniSONE 20 MG TAB PO SCH (08:07)
[2019-08-05] MEDS: ACETAMINOPHEN 325 MG TAB PO PRN (08:07)
[2019-08-05 08:09] LABS: BUN Creatinine Ratio 20.2 (10-20); Calcium 8.6 mg/dl (8.5-10.1); Creatinine Clr Calc Pharmacy 110.6 ml/min; Est GFR (African American) 109.5; Est GFR (Non-African American) 94.5; Potassium 3.9 mmol/L (3.5-5.1)
[2019-08-05] MEDS: NICOTINE 7 MG/24 HR TDSY TD SCH (08:12)
[2019-08-05] MEDS: ADVAIR INH SCH (08:13)
[2019-08-05] MEDS: SPIRIVA RESPIMAT INH SCH (08:14)
--- NOTE | 2019-08-05 10:13 | Cardiology Progress Note ---
Date of Service August 05, 2019 Assessment & Plan (1) Systolic congestive heart failure with reduced left ventricular function, NYHA class 2: (2) Apical ballooning syndrome: (3) COPD with acute exacerbation: (4) Acute on chronic respiratory failure with hypoxia and hypercapnia: The patient's cardiac catheterization showed widely patent coronary anatomy. I believe the patient had apical ballooning syndrome due to anxiety as well as stress from his COPD. He is doing well and wants to go home today. I have increased his diuretics as well as his ESTELA inhibitor today. Could potentially go up on his beta-jean-paul however, with his COPD I am a little worried about pushing his metoprolol. I believe he can be discharged today. We will have close follow-up with him next week after discharge. I will arrange for follow-up. At some point he will need a follow-up echocardiogram to see if he has had improvement in his LV function which would be consistent with apical ballooning syndrome. Subjective Patient with no new cardiac complaints today. Review of Systems Review of Systems: All systems reviewed & are unremarkable except as noted in HPI & below Nothing additional to add. Physical Exam Physical Exam: General: no acute distress and stated age Head: normocephalic, no masses, lesions, tenderness or abnormalities Eyes: conjunctiva are pink and non-injected, sclera clear Neck: supple, no adenopathy, no bruits, normal jugular venous pulse, no hepatojugular reflux Chest: normal shape and normal respiratory effort Lungs: Some wheezing but no rales or rhonchi. Cardiac Exam: - regular rate & rhythm, no murmurs gallops or rubs - normal S1, normal S2 Pulses: 2(+) throughout Abdomen: abdomen soft, non-tender, no abnormal masses and no hepatosplenomegaly Musculoskeletal: no gait disturbance, no joint inflammation, no deforming a rthritis Extremities: no edema and no cyanosis Neuro: grossly normal exam Results & Data Vital Signs (Past 12 Hours) Vital Signs Pulse Resp Pulse Ox 08/05/19 02:26 76 16 97 08/05/19 00:34 22 99 Laboratory Results Laboratory Results - last 24 hr 08/05/19 08/05/19 07:24 07:24 WBC 11.21 H RBC 4.53 L Hgb 14.0 Hct 41.9 L MCV 92.5 MCH 30.9 MCHC 33.4 RDW Std Deviation 45.5 RDW Coeff of Nevin 13.4 Plt Count 228 MPV 9.6 Immature Gran % (Auto) 0.4 Neut % (Auto) 66.8 Lymph % (Auto) 21.1 Surry % (Auto) 11.3 Eos % (Auto) 0.4 Baso % (Auto) 0.0 Immature Gran # (Auto) 0.05 H Neut # (Auto) 7.49 H Lymph # (Auto) 2.36 Surry # (Auto) 1.27 H Eos # (Auto) 0.04 Baso # (Auto) 0.00 Sodium 137 Potassium 3.9 Chloride 103 Carbon Dioxide 31 Anion Gap 3.0 BUN 18 Creatinine 0.90 Est Cr Clr Drug Dosing 110.6 Est GFR ( Amer) 109.5 Est GFR (Non-Af Amer) 94.5 BUN/Creatinine Ratio 20.2 H Glucose 99 Calcium 8.6 Medications Administered Current Inpatient Medications Acetaminophen (Tylenol) 325 mg PO Q6H PRN PRN Reason: Pain or Fever Stop: 08/30/19 16:44 Last Admin: 08/05/19 08:07 Dose: 325 mg Documented by: Albuterol (Duoneb) 3 ml NEB QIDR PRN PRN Reason: Dyspnea Stop: 09/02/19 10:59 Last Admin: 08/05/19 00:33 Dose: 3 ml Documented by: Aspirin (Ecotrin Ectab) 81 mg PO [facility] Stop: 08/31/19 08:59 Last Admin: 08/05/19 08:04 Dose: 81 mg Documented by: Bupropion HCl (Wellbutrin-Xl) 300 mg PO [facility] Stop: 08/31/19 08:59 Last Admin: 08/05/19 08:05 Dose: 300 mg Documented by: Calcium Carbonate (Tums) 500 mg PO Q6H PRN PRN Reason: Heartburn Stop: 08/31/19 04:53 Last Admin: 08/04/19 21:29 Dose: 500 mg Documented by: Clopidogrel Bisulfate (Plavix) 75 mg PO [facility] Stop: 09/03/19 11:14 Last Admin: 08/05/19 08:05 Dose: 75 mg Documented by: Doxycycline Hyclate (Vibramycin) 100 mg PO DAILY [facility] Stop: 08/06/19 09:01 Last Admin: 08/05/19 08:05 Dose: 100 mg Documented by: Escitalopram Oxalate (Lexapro Tab) 20 mg PO [facility] Stop: 08/31/19 08:59 Last Admin: 08/05/19 08:06 Dose: 20 mg Documented by: Furosemide (Lasix) 20 mg PO [facility] Stop: 09/02/19 08:59 Last Admin: 08/05/19 08:06 Dose: 20 mg Documented by: Furosemide 20 mg/ Syringe 2 mls @ 4 mls/min IV NOW ONE Stop: 08/05/19 10:16 Lisinopril (Zestril) 40 mg PO [facility] Stop: 09/05/19 08:59 Lisinopril (Zestril) 20 mg PO NOW ONE Stop: 08/05/19 10:16 Metoprolol Succinate (Toprol Xl) 25 mg PO [facility] Stop: 09/03/19 10:59 Last Admin: 08/05/19 08:05 Dose: 25 mg Documented by: Miscellaneous (Remove Nicoderm Patch) 1 ea N/A DAILY@59 [facility] Stop: 08/31/19 08:58 Last Admin: 08/05/19 08:12 Dose: Not Given Documented by: Nicotine (Nicoderm Cq) 7 mg TD [facility] Stop: 08/30/19 17:59 Last Admin: 08/05/19 08:12 Dose: Not Given Documented by: Spiriva Respimat 2. 5mcg/Act - Patient's Own Med 2 ea INH DAILY [facility] Stop: 09/03/19 13:59 Last Admin: 08/05/19 08:14 Dose: 2 ea Documented by: Robinson Hfa - (Patient's Own Med) 2 ea INH Q12 [facility] Stop: 09/03/19 13:59 Last Admin: 08/05/19 08:13 Dose: 2 ea Documented by: Prednisone (Prednisone) 20 mg PO BID [facility] Stop: 09/02/19 20:59 Last Admin: 08/05/19 08:07 Dose: 20 mg Documented by: Roflumilast (Daliresp) 500 mcg PO [facility] Stop: 08/31/19 08:59 Last Admin: 08/05/19 08:05 Dose: 500 mcg Documented by: Vitamin D (Vitamin D3) 1,000 units PO [facility] Stop: 08/31/19 08:59 Last Admin: 08/05/19 08:06 Dose: 1,000 units Documented by:
[2019-08-05] MEDS ORDERED: lisinopriL 20 MG TAB PO ONE (10:15)
[2019-08-05] MEDS ORDERED: FUROSEMIDE 20 MG in SYRINGE 0 ML IV ONE (10:15)
--- NOTE | 2019-08-05 11:21 | Pulmonology Progress Note ---
Date of Service August 05, 2019 Assessment & Plan (1) Systolic congestive heart failure with reduced left ventricular function, NYHA class 2: Impression: 58-year-old male with chronic hypoxemic respiratory failure and advanced obstructive lung disease admitted with increasing shortness of sara ath and progressive acute on chronic hypoxemic respiratory failure likely multifactorial due to combinations of potential systolic heart failure combined with acute exacerbation of COPD. He is improved with therapy. Recommendations: 1. COPD: Bronchospasm appears significantly improved. Continue doxycycline and prednisone 40 mg daily for an additional 2 days then discontinue. Continue home Advair and Spiriva as well as as needed albuterol 2. Acute on chronic hypoxemic respiratory failure: Multifactorial. Continue diuresis per cardiology and primary service. Maintain oxygen saturations around 90% 3. Heart failure: Per cardiology. No evidence of coronary disease. Unclear if this represents stress-induced cardiomyopathy. Appears euvolemic currently. 4. Patient appears appropriate to discharge from a pulmonary perspective. He should have a telephone or virtual follow-up with Dr. sidhu next week. We will sign off. Feel free to contact us with questions. (2) Non-ST elevated myocardial infarction (non-STEMI): (3) Acute respiratory acidosis: (4) COPD with acute exacerbation: Admission and Anticipated Discharge Date Admission Date: July 31, 2019 Subjective Patient continues to slowly improve. He is not having any respiratory issues currently. He only used his rescue albuterol once. He is restarted his home Advair and Spiriva. He is coughing up small amounts of phlegm. He is back to his baseline oxygen requirement. Review of Systems Review of Systems: Unchanged from prior Physical Exam Physical Exam: Constitutional: No acute distress HEENT: EOMI, PERRLA Respiratory system: Decreased air entry bilaterally, no crackles, no rhonchi, diffuse expiratory wheeze (improved from yesterday) CVS: S1-S2 positive, no murmurs or gallops, distant heart sounds Abdomen: Soft, nontender, nondistended, positive bowel sounds x4 Extremities: +2 pulses bilaterally radialis/ dorsalis pedis, no cyanosis, +1 edema bilateral lower extremity Neuro: Awake alert oriented x3 Psych: Normal mood and affect G/U: No Rand Skin: no rashes, warm and dry Lymphatic: no cervical or axillary lymphadenopathy Results & Data Results & Data ([facility]) Vital Signs (Past 12 Hours) Vital Signs Pulse Pulse Resp Pulse Ox 08/05/19 08:00 57 L 08/05/19 02:26 76 16 97 08/05/19 00:34 22 99 PG Care Time/CCT Total # of Minutes Spent Total Time Spent with Patient: Total time spent is greater than 50% in coordination of care (as documented) at patient's floor/unit and/or counseling patient: Coding Level of Care Code 13613 Subseq Hosp Care Lvl 3 Diagnoses Systolic congestive heart failure with reduced left ventricular function, NYHA class 2 I50.20 Non-ST elevated myocardial infarction (non-STEMI) I21.4 Acute respiratory acidosis E87.2 COPD with acute exacerbation J44.1 Time Spent (min) 35
[2019-08-05 11:33] VITALS: TEMP 98.1; O2SAT 94
--- NOTE | 2019-08-05 12:15 | Hospitalist Progress Note ---
Date of Service August 05, 2019 Assessment & Plan (1) Acute on chronic respiratory failure with hypoxia and hypercapnia: Acute on chronic systolic congestive heart failure with reduced left ventricular function, NYHA class II: Volume status improved to baseline Appreciate input from cardiology Recommends to increased his diuretics Lasix 40 mg daily as well as ESTELA inhibitor dose: Lisinopril 40 mg daily Follow-up with cardiology in a week Acute on chronic respiratory failure with hypoxia and hypercapnia: Secondary to combination of COPD with acute exacerbation/with acute decompensation of chronic systolic congestive heart failure Respiratory status improved to approximate baseline, appreciate input from pulmonology and cardiology Per pulmonology: Patient will need to continue doxycycline and prednisone 40 mg daily for additional 2 days then discontinue Continue home Advair and Spiriva as well as as needed albuterol pt has been unable to use Spiriva due to high co payment reached out to pt's Pharmacy at [facility] Spiriva Copay 105$ , as pt is on medicare no other coupon or discount can be used also no other generic lower cost formulary available Pt's [employer] already started paper work from Clinic for affordable payment Able to afford Advair and Albutrol INH both of the 34$ co -pay each pt already picked up INH early this month Outpatient follow-up with telephone/video clinic follow-up with pulmonology Dr. Bradford next week NSTEMI, Cardiomyopathy - possible apical ballooning secondary to stress - trop 4.7 to 2.1 s/p cardiac cath 08/04/19: patent coronaries Stressed induced cardiomyopathy Echocardiogram: Showing apical ballooning of left ventricle, possible secondary to stress induced/EF 20-25% - Started on beta-jean-paul by cardiology Patient will need a repeat/follow-up echocardiogram to see improvement of LV function which would be consistent with apical ballooning syndrome. On aspirin/Plavix Full Code status Disposition Stable to be discharged home today update given to over phone all questions answered Admission and Anticipated Discharge Date Admission Date: July 31, 2019 Subjective no complain of SOB , has cough with whitish sputum no chest pain , or orthopnea no fever or chills feels fine ready to be discharged home today Review of Systems Review of Systems: All systems reviewed & are unremarkable except as noted in HPI & below Constitutional: no fever and no chills Respiratory: no cough, no dyspnea, no dyspnea on exertion and no wheezing Cardiovascular: no chest pain, no radiating jaw, neck or arm pain, no dyspnea on exertion, no orthopnea, no palpitations, no lightheadedness, no syncope and no edema Physical Exam Constitutional: WD/WN, vitals as above no acute distress Eyes: PERRL, conjunctivae normal, anicteric sclerae ENMT: external ear and nose normal, oropharynx normal Neck: trachea midline, no thyromegaly Respiratory: normal respiratory effort, lungs clear to auscultation Cardiovascular: RRR, no murmur, no edema Gastrointestinal (Abdomen): normal bowel sounds, soft, nontender, no hepatosplenomegaly Musculoskeletal: no cyanosis or clubbing, extremities motor strength 5/5 Skin: no rashes, warm and dry Neurologic: PERRL, EOMI, accommodation nl, no face palsy, no dysarthria Psychiatric: A+Ox3, euthymic affect Results & Data Results & Data ([facility]) Vital Signs (Past 12 Hours) Vital Signs Temp Pulse Pulse Resp BP Pulse Ox 08/05/19 11:32 36.7 C 68 20 123/84 94 08/05/19 08:00 36.9 C 57 L 54 L 20 130/83 95 08/05/19 02:26 76 16 97 08/05/19 00:34 22 99
[2019-08-05 12:56] VITALS: BP 125/87; PULSE 94
--- NOTE | 2019-08-05 13:49 | Discharge Summary ---
Date of Service August 05, 2019 Admission HPI Per Admitting Provider History of Present Illness This is a 58 year old male with history of Chronic obstructive pulmonary disease ( COPD ) likely from tobacco use as he started smoking since he was a teenager and continues to be occasional smoker, follows with Dr. Bradford of [facility] pulmonary clinic, uses supplementary oxygen of 2 liters/min at baseline, who generally has been using nebulizers 4 times a day, and noted increased susan rtness of breath in recent days, and when he was brought in to the emergency room, he was started on BIPAP as per emergency room provider as well as IV steroid. When assessed by hospitalist service, patient reports his breathing feeling better and was able to tolerate transition to 2 liters/minute of nasal cannula Despite elevated admission troponins, patient denied having chest pain. Denies chest palpitations. Denies sick contacts. Influenza test is negative. no vomiting. no dsyuria. no abdomen pain. no unusual bowel movements. Family History: Patient denies family history of medical problems, denies family history of myocardial infarction Allergies: Patient denies of having any food or drug allergies Primary Care Provider: Izabela Gonzalez DO Principal Diagnosis Congestive heart failure/respiratory failure due to COPD exacerbation and worsening of heart failure Abnormal echo findin Discharge Exam Constitutional WD/WN, vitals as above no acute distress Eyes PERRL, conjunctivae normal, anicteric sclerae ENMT external ear and nose normal, oropharynx normal Neck trachea midline, no thyromegaly Respiratory normal respiratory effort, lungs clear to auscultation Cardiovascular RRR, no murmur, no edema Gastrointestinal (Abdomen) normal bowel sounds, soft, nontender, no hepatosplenomegaly Musculoskeletal no cyanosis or clubbing, extremities motor strength 5/5 Skin no rashes, warm and dry Neurologic PERRL, EOMI, accommodation nl, no face palsy, no dysarthria Psychiatric A+Ox3, euthymic affect Discharge Data Allergies Allergy/AdvReac Type Severity Reaction Status Date / Time No Known Drug Allergies Allergy Verified 07/31/19 15:17 Consultations 07/31/19 16:04 ED Decision to Admit Stat 07/31/19 16:41 Consult Case Management - Discharge Planning Routine 07/31/19 18:02 Consult Cardiology Routine 08/01/19 08:47 Consult Pulmonology Routine Procedures Performed Operation Date: 08/04/19 08:00 Actual Procedures p Cath, Coronaries ONLY (no LV) - Lauri Almanza DO s Cineradiography w/Routine Exam - Lauri Almanza DO Ordered Studies 08/01/19 10:00 CT chest wo con Stat 08/04/19 06:51 CL Cath Imgs for PACS use only Routine Hospital Course (1) Acute on chronic respiratory failure with hypoxia and hypercapnia: Acute on chronic systolic congestive heart failure with reduced left ventricular function, NYHA class II: Volume status improved to baseline Appreciate input from cardiology Recommends to increased his diuretics Lasix 40 mg daily as well as ESTELA inhibitor dose: Lisinopril 40 mg daily Follow-up with cardiology in a week Acute on chronic respiratory failure with hypoxia and hypercapnia: Secondary to combination of COPD with acute exacerbation/with acute decompensation of chronic systolic congestive heart failure Respiratory status improved to approximate baseline, appreciate input from pulmonology and cardiology Per pulmonology: Patient will need to continue doxycycline and prednisone 40 mg daily for additional 2 days then discontinue Continue home Advair and Spiriva as well as as needed albuterol pt has been unable to use Spiriva due to high co payment reached out to pt's Pharmacy at [facility] [address] Spiriva Copay 105$ , as pt is on medicare no other coupon or discount can be used also no other generic lower cost formulary available 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 Bradford next week NSTEMI, Cardiomyopathy - possible apical ballooning secondary to stress - trop 4.7 to 2.1 s/p cardiac cath 08/04/19: patent coronaries Stressed induced cardiomyopathy Echocardiogram: Showing apical ballooning of left ventricle, possible secondary to stress induced/EF 20-25% - Started on beta-jean-paul by cardiology Patient will need a repeat/follow-up echocardiogram to see improvement of LV function which would be consistent with apical ballooning syndrome. On aspirin/Plavix Full Code status Disposition Stable to be discharged home today update given to over phone all questions answered Total Time Total Time Spent Total Time Spent (In Minutes): 40 mins Total Time Includes: Examination of the Patient, Discharge Planning and Medication Reconciliation Discharge Plan Discharge Items Patient Disposition: Home - Self-Care Reason For Visit: COPD EXACERBATION,ELEVATED TROPONINS Discharge Diagnosis: Congestive heart failure/respiratory failure due to COPD exacerbation and worsening of heart failure Abnormal echo finding Activity: As commented below Activity Comment: As tolerated Non-emergency contact: Primary Care Provider Call non-emergency contact if: you have any medication questions Follow-up/Referrals: Roger Bradford DO [Family Provider] - Lauri Almanza DO [Research Environmental Engineer] - Izabela Gonzalez DO [Primary Care Provider] - 08/13/19 10:25 am (Please note this is a telephone appointment due to the Covid pandemic.) Diet: Heart Healthy and Low Sodium (2gm) Addtl Attending Provider Instructions: Do not take ibuprofen-avoid Advil/Motrin/naproxen/Aleve: This can cause fluid retention leading to congestive heart failure, worsening of kidney function Telephone/video clinic follow-up with lung specialist/pulmonology Dr. bradford in 1 week, please call to schedule an appointment Cardiology follow-up in 1-2 weeks, office will call to schedule appointment You will need repeat echocardiogram done in 2-3 weeks, cardiology office will schedule New medications: 1. Plavix 75 mg take 1 tablet daily: Take with food 2. Lasix 40 mg by mouth daily: Water pill to prevent heart failure 3. Lisinopril 40 mg take 1 tablet daily: Water pill to prevent heart failure 4. Metoprolol succinate 25 mg take 1 tablet daily: For heart rate control, improvement of your cardiac function 5. Doxycycline 100 mg take 1 tablet twice daily: Antibiotic for bronchitis-take for 2 days only 6. Prednisone 40 mg take 1 tablet daily for 2 days: For COPD exacerbation Continue take your home inhalers: Advair/Spiriva/albuterol inhaler as needed It is very important to quit smoking to prevent further damage to your heart and lungs Call your Primary Care doctor if any of the following symptoms or problems start or get worse: * Shortness of breath or difficulty breathing * Wake up at night short of breath * Chest pain * Cough * Swelling of your hands, feet, or legs * More fatigued or tired with your normal activity * Palpitations - sudden fast heart beats WEIGHT * Weigh yourself every morning after using the bathroom. * Use the same scale. * Wear the same amount of clothing. * Write your weight down on a chart. * Call your Primary Care doctor if you gain more than 2-3 pounds in 1-2 days. MEDICATIONS * Use this discharge instruction sheet for medication instructions. * Take your medications at the time your doctor ordered. * Do not skip a dose of your medicines. * If you miss a dose of medicine, take it as soon as possible, but DO NOT DOUBLE A DOSE. * Read your medicine information when you get home. * Know all of the side effects of your medicine. If in doubt, ask your pharmacist * Call your Primary Care doctor's office if you have any side effects. * Be sure all of your doctors know what medicine and herbs you take (including cold, flu, and herbal medicine). Take the following with you to your follow-up doctor appointments: * Weight Chart * Medication List * List of questions Do not drink excessive alcohol, beer or wine. Pending Studies at Discharge: No Stand-Alone Forms: My [employer], Smoking Cessation Medications and DC Order Prescriptions: New doxycycline hyclate 100 mg Capsule 100 mg PO DAILY 2 Days Qty: 2 RF: 0 prednisone 20 mg Tablet 40 mg PO DAILY 2 Days Qty: 4 RF: 0 furosemide 40 mg Tablet 40 mg PO QAM 30 Days Qty: 30 RF: 3 metoprolol succinate 25 mg Tablet Extended Release 24 Hr 25 mg PO QAM 30 Days Qty: 30 RF: 5 lisinopril [Zestril] 40 mg Tablet 40 mg PO QAM 30 Days Qty: 30 RF: 5 clopidogrel 75 mg Tablet 75 mg PO QAM 30 Days Qty: 30 RF: 5 Continued ipratropium-albuterol 0.5 mg-3 mg(2.5 mg base)/3 mL solution for nebulization 3 ml INHALATION Q6H PRN (Reason: shortness of breath or wheezing) Qty: 360 RF: 11 bupropion HCl 150 mg tablet extended release 24 hr 300 mg PO QAM RF: 0 aspirin [Aspir-81] 81 mg Tablet,Delayed Release (Dr/Ec) 81 mg PO QAM RF: 0 cholecalciferol (vitamin D3) [Vitamin D3] 1,000 unit Capsule 1,000 unit PO QAM RF: 0 escitalopram oxalate 10 mg tablet 20 mg PO QAM RF: 0 albuterol sulfate [Ventolin HFA] 90 mcg/actuation HFA aerosol inhaler 2 puff INHALATION Q4 PRN (Reason: Wheezing, dyspnea) Qty: 18 RF: 5 Advair HFA 230-21 mcg/actuation HFA aerosol inhaler 2 puff INHALATION Q12 Qty: 12 RF: 5 Daliresp 500 mcg tablet 500 mcg PO QAM Qty: 30 RF: 5 Spiriva Respimat 2.5 mcg/actuation mist 2 puff INHALATION QDL Qty: 4 RF: 5 Discontinued flu vac qv 2017(18yr up)rc(PF) 180 mcg (45 mcg x 4)/0.5 mL syringe 0.5 ml IM ONCE Qty: 0.5 RF: 0 prednisone 10 mg tablet 5 mg PO QAM Qty: 90 RF: 1 tiotropium-olodaterol [Stiolto Respimat] 2.5-2.5 mcg/actuation mist 1 puff inhalation DAILY RF: 0 ibuprofen 200 mg Tablet 200 mg PO Q6H PRN (Reason: Pain) RF: 0 Discharge Orders: Discharge Order (Routine); Ordered 08/05/19 Ordered By: Beverley Mcgrath/Other Patient Handouts: COPD Chronic Cough, Heart Failure, COPD Meds, Apical Ballooning Syndrome, A1C Admission Data Admit Date/Time: 07/31/19 16:43 Attending Provider: Beverley Trevino Admit Provider: Vimal Escalona Primary Care Provider: Izabela Gonzalez Other Providers: Vimal Escalona ; Lauri Almanza ; Luther Peng Other Interventions: Discharge Summary Assessment (RN) Last Done: 08/05/19 12:51 DC Date/Time DO NOT enter until pt leaves facility: 08/05/19 13:44
[2019-08-06] MEDS ORDERED: FUROSEMIDE 40 MG TAB PO SCH (09:00)
[2019-08-06] MEDS ORDERED: lisinopriL 40 MG TAB PO SCH (09:00)
== END 2019-08-05 13:44 | disposition home or self-care (01) | DRG 189 ==
LOC: ED 14:14 → 2S 16:43 → SUATTDRO 16:43 → 2S 19:30
PROC: CLB.CCO (2019-08-04 08:00)
DX: Z99.81 Dependence on supplemental oxygen; F17.210 Nicotine dependence, cigarettes, uncomplicated; Z79.82 Long term (current) use of aspirin; J96.21 Acute and chronic respiratory failure with hypoxia; I21.4 Non-ST elevation (NSTEMI) myocardial infarction; R25.1 Tremor, unspecified; J44.1 Chronic obstructive pulmonary disease with (acute) exacerbation; F32.9 Major depressive disorder, single episode, unspecified; E87.2 Acidosis

== ENCOUNTER 2020-01-22 09:13 | Inpatient (IN) ==
[~2020-01-22 09:13] MED LIST changes: -ASPI81TA28 PO; -ATROPINE SULFATE 0.1 MG/ML 5ML SYR IV PRN; -CEFAZOLIN 2000MG IV PUSH 10 ML IV SCH; -CHOL2000 PO; +ETOMIDATE 2 MG/ML 20 ML VIAL IV ONE; -EpHEDrine SULFATE INJ 50 MG/ML AMP IV PRN; -HYDROmorphone INJ 1 MG/ML SYR IV PRN; -IPRASOL4 INH; -LABETALOL HCL IV 5 MG/ML 20ML IV PRN; -LACTATED RINGER'S 1000ML 1,000 ML IV SCH; -MEPERIDINE HCL 25 MG/ML CARP IV PRN; -MOME200A INH; -ONDANSETRON INJ 2 MG/ML 2 ML VIAL IV PRN; -OXGN; -PRED10TA PO; +RAPID SEQUENCE INDUCTION BAG ONE; -ROFL1TAB5 PO; -SPRIN/30 INH; +SUCCINYLCHOLINE CHLORIDE 20 MG/ML 10 ML VIAL IV ONE; -VNTHFA/IN INH; +fentaNYL citrate 100 MCG/2 ML VIAL IV ONE
[2020-01-22] MEDS ORDERED: ALBUT/IPRATROP 3MG/0.5MG NEB 3 ML VIAL ONE (09:22)
[2020-01-22] MEDS ORDERED: ALBUT/IPRATROP 3MG/0.5MG NEB 3 ML VIAL INH STA (09:28)
--- NOTE | 2020-01-22 09:32 | Emergency Department Note ---
Impression & Plan Acute on chronic respiratory failure with hypoxia and hypercapnia, COPD (chronic obstructive pulmonary disease), Non-ST elevated myocardial infarction (non-STEMI), Acute respiratory acidosis ED Provider Note INFORMANT: Patient ED PROVIDER(S): Jesús Mijares MD CHIEF COMPLAINT: Respiratory distress PLAN: Disposition: Admitted Condition: Critical MEDICAL DECISION MAKING: Patient presented to the emergency department in severe respiratory distress. Unfortunately his respiratory status was poor even on bronchodilators, steroids, and CPAP. The patient only complains of shortness of breath and did note some chest pain. He could not provide any additional history due to his severe respiratory distress and medical acuity. He did require endotracheal intubation. This was performed as below. His initial twelve-lead ECG did raise some concerns about ST elevation in heart alert was initiated. After intubation his repeat ECG revealed a tachycardia that showed a widened QRS, possibly a flutter. The patient was evaluated in the ER by Dr. Begum and Dr. Almanza cardiology. Patient's i-STAT did not reveal any gross abnormalities other than hyperglycemia. However, the patient's ABG showed severe respiratory acidosis and hypercarbia the patient's ventilator was managed. Respiratory rate was increased. He was given 10 mg of IV Cardizem to help slow his heart rate down. This revealed a sinus tachycardia. In light of his gross acidosis it was felt that his rhythm was secondary to his respiratory distress and acid-base status. He had no significant ST elevation seen on follow-up ECG. Chest imaging showed signs of COPD. Repeat chest imaging revealed the endotracheal tube to be in good position. The patient stabilized on a propofol drip. He was intubated with etomidate and succinylcholine. He did receive fentanyl and Versed before the propofol drip. Patient's troponin is mildly elevated, not surprising given the severe respiratory distress. Consultation was made with intensive care, Dr. Car. He did evaluate the patient in the emergency department. He agreed with the assessment and ventilator management. The patient will be admitted to the ICU. A bio [facility] respiratory panel was requested and this was performed. I did update the patient's . The patient's did consent to the intubation and management prior to the procedure. The patient did have some mild hypotension develop on a higher dose of his propofol drip. He was given a fluid bolus for this. Triage Nursing notes reviewed and agree them. Additional history obtained from EMS and the patient's Prior medical records reviewed regarding his COPD history and also his old ECGs. Vital Signs: reviewed and remarkable for severe tachycardia and tachypnea Differential diagnosis: Reactive airway disease, pneumonia, pneumothorax, COPD, CHF, infections, cardiac ischemia, pulmonary embolism, musculoskeletal, gastrointestinal, as well as other pathologies. Diagnostics interpreted by me: ECG: #1: Sinus tachycardia at 161 bpm. There is anterolateral Q waves. Inf erior ST elevation is present. Concerning for acute HI. Poor baseline data. No PVCs. ECG #2 reveals an undetermined rhythm at 164 bpm. Left axis deviation and right bundle branch block present. Inferior Q waves present. When compared to the first ECG sinus rhythm has changed. ECG #3. A flutter at 148 bpm. There is a right bundle branch block present. Inferior Q waves present. No ST elevation or depression present. No PVCs. When compared to prior ECG a flutter is now present. ECG #4. Sinus tachycardia at 140 bpm. There is left axis deviation and low voltage QRS. Inferior Q waves are present. There is no ST elevation or depression. When compared to ECG #3 there is replacement of the a flutter. Cardiac Monitoring: Cardiac monitoring ordered by me: The patient was placed on continuous cardiac monitoring and observed. It revealed a wide-complex tachy cardia at 149 bpm. No ectopy. Imaging studies: Chest x-ray #1 reveals hyperinflation and signs of COPD without focal infiltrate. No pneumothorax. Mild cardiomegaly. Chest x-ray #2 reveals the endotracheal tube to be in the trachea. Radiology measured 7.5 cm above the holly however the endotracheal tube was placed to 26 cm. Consultation(s): Cardiology, ICU, internal medicine HPI: The patient is a 59 year old male who presents to the Emergency Room with complaints of SOB. This started this morning and is rapidly worsening. The patient also notes the following associated symptoms, chest pain. states the patient asked for his oxygen tank. EMS was summoned. When EMS arrived the patient was altered. He was in severe respiratory distress. It took him almost 40 minutes to get the patient out of the house. He was combative. They did apply a CPAP, Solu-Medrol, and a DuoNeb. He was very tachycardic. The patient's respiratory rate was in the high 30s. EMS contacted emergency department to notify us of the impending respiratory patient. History is limited secondary to patient's medical acuity. ROS: Limited secondary to medical acuity PAST MEDICAL HISTORY:See Below, COPD, CAD PAST SURGICAL HISTORY:See Below, FAMILY HISTORY:See Below SOCIAL HISTORY:See Below, HOME MEDICATIONS:See Below ALLERGIES:See Below VITALS:See Below PHYSICAL EXAMINATION: GENERAL: Lethargic, ill-appearing, in severe distress HENT: Normocephalic, atraumatic. Oropharynx unremarkable. EYES: Normal conjunctiva. Sclera non-icteric. NECK: Inspection normal. Non-tender. Supple. No nuchal rigidity. FROM. No masses. RESPIRATORY: Severe tachypnea, diffuse wheezes. Air movement bilaterally although diminished. No tracheal deviation. CARDIAC: Tachycardic rate. Normal rhythm. No murmurs. No rubs. Extremities warm and well perfused. Pulses equal. No JVD. GI: Soft, non-distended. No tenderness to palpation. No rebound or guarding. No masses. RECTAL: Deferred. MUSCULOSKELETAL: Atraumatic. Chest examination reveals no tenderness. The back is symmetrical on inspection without obvious abnormality. There is no CVA tenderness to palpation. No joint edema. LOWER EXTREMITIES: Calves are equal size bilaterally and non-tender. No edema. No discoloration. NEURO: Altered sensorium. Moving arms and legs. Not following commands. SKIN: No rash or jaundice noted. ED COURSE: Endotracheal Intubation Indication respiratory failure The patient was on 100% oxygen via BiPAP prior to the procedure. Suction, airway equipment, RSI drugs, respiratory equipment, and appropriate personnel were prep ared prior to the initiation of the procedure. A time out was taken. Induction was performed with etomidate and succinylcholine. After observing the clinical benefit of the medications, the airway was easily visualized utilizing a glide scope. A 7.5 size ETT tube was placed atraumatically to 26 cm using standard technique. The cuff inflated without signs of malfunction. There were bilateral breath sounds, positive colormetric change, no gastric sounds, a good capnography waveform, and post procedure pulse oximetry was 100%. Post intubation sedation was administered using Versed, fentanyl, and propofol. There were no complications. Critical Care: I have personally spent greater than 85 minutes of critical care time in the direct management of this patient. This includes bedside care, interpretation of diagnostic studies, and testing, discussion with consultants, and family members, and other required patient management activities. These minutes are in excess of all separately billable procedures. Jesús Mijares MD Past Med/Surg History Medical History Anxiety Asthma Chronic back pain Chronic obstructive pulmonary disease Chronic respiratory failure with hypoxia and hypercapnia COPD exacerbation Depression Diverticular disease On home oxygen therapy Sleep apnea Stage 4 very severe COPD by GOLD classification Surgical History History of bowel resection DIVERTICULITIS History of herniorrhaphy X 5 Family History Other Hypertension Social History Smoking Status: Former smoker Tobacco Type: Cigarettes Second Hand Exposure: No; Hx Alcohol Use: No Hx Substance Use: Yes Last Used Substance: Days (ago) Preferred Language: Chinese Communication Ability: Unable 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 Beliefs That Will Affect Care: None marital status: Current Living Situation: Spouse Current Living Situation Comment: [facility] Feels Safe at Home: Yes Assistive Devices: None Allergies Allergies Allergy/AdvReac Type Severity Reaction Status Date / Time No Known Drug Allergies Allergy Verified 01/22/20 09:48 Home Meds Home Medications Medication Instructions Recorded Confirmed cholecalciferol (vitamin D3) 1,000 unit PO QAM 01/17/18 01/22/20 [Vitamin D3] bupropion HCl 150 mg 24 hr tablet, 300 mg PO QAM tab 06/09/19 01/22/20 extended release escitalopram oxalate 10 mg tablet 20 mg PO QAM tab 06/09/19 01/22/20 rosuvastatin 20 mg tablet 20 mg PO DAILY 11/04/19 01/22/20 aspirin 81 mg PO QAM 01/22/20 01/22/20 Previous Rx's Medication Instructions Recorded ipratropium 0.5 mg-albuterol 3 mg 3 ml INHALATION Q6H PRN #360 ml 06/08/19 (2.5 mg base)/3 mL nebulization soln clopidogrel 75 mg PO QAM 30 Days #30 tab 08/05/19 furosemide 40 mg PO QAM 30 Days #30 tab 08/05/19 lisinopril [Zestril] 40 mg PO QAM 30 Days #30 tab 08/05/19 metoprolol succinate 25 mg PO QAM 30 Days #30 tab 08/05/19 tiotropium bromide [Spiriva 2 puff INHALATION QDL #4 gm 08/05/19 Respimat] Non Invasive Ventilator #1 ea 11/04/19 prednisone 10 mg tablet 10 mg PO DAILY #90 tab 11/05/19 albuterol sulfate 90 mcg/actuation 2 puff INHALATION Q4 PRN #3 inhaler 01/20/20 aerosol inhaler fluticasone propionate 230 2 puff INHALATION Q12 #3 inhaler 01/20/20 mcg-salmeterol 21 mcg/actuation HFA inhaler roflumilast 500 mcg tablet 500 mcg PO QAM 90 Days #90 tab 01/22/20 Results & Data (ED) Vital Signs Vital Signs - 24 hr 01/22/20 09:15 01/22/20 09:19 01/22/20 09:20 Temperature Temperature Source Pulse Rate 154 H 153 H 154 H Pulse Rate [Left Finger] Pulse Rate from SpO2 Sensor 144 H Respiratory Rate 40 H Respiratory Effort / Characteristics Spontaneous Respiratory Depth Shallow Respiratory Pattern Tachypnea Blood Pressure Blood Pressure Mean Pulse Oximetry 100 91 Oxygen Delivery Method Mechanical Vent Oxygen Flow Rate 100 Fraction of Inspired Oxygen 100 Sepsis Recent Fever Within 48 Hours Sepsis New/Unexplained Change in Mental Status Sepsis Action Taken by Nursing End-Tidal CO2 01/22/20 09:30 01/22/20 09:35 01/22/20 09:37 Temperature 36.9 C Temperature Source Rectal Pulse Rate 149 H 149 H Pulse Rate [Left Finger] 139 H Pulse Rate from SpO2 Sensor 130 H Respiratory Rate 38 H 36 H Respiratory Effort / Characteristics Accessory Muscle Use Labored Nasal Flaring Short of Breath Spontaneous Short of Breath Respiratory Depth Retractive Respiratory Pattern Blood Pressure 114/94 114/94 Blood Pressure Mean 100 98 Pulse Oximetry 84 L 92 91 Oxygen Delivery Method Nasal CPAP BiPAP Oxygen Flow Rate Fraction of Inspired Oxygen 100 Sepsis Recent Fever Within 48 Hours No Sepsis New/Unexplained Change in Mental Status N/A Sepsis Action Taken by Nursing Physician Notified End-Tidal CO2 01/22/20 09:40 01/22/20 09:41 01/22/20 09:45 Temperature Temperature Source Pulse Rate 141 H 146 H 147 H Pulse Rate [Left Finger] Pulse Rate from SpO2 Sensor 143 H 143 H Respiratory Rate 20 Respiratory Effort / Characteristics Respiratory Depth Respiratory Pattern Blood Pressure 122/97 Blood Pressure Mean 101 Pulse Oximetry 86 L 83 L 99 Oxygen Delivery Method Oxygen Flow Rate Fraction of Inspired Oxygen 100 Sepsis Recent Fever Within 48 Hours Sepsis New/Unexplained Change in Mental Status Sepsis Action Taken by Nursing End-Tidal CO2 54 59 01/22/20 09:46 01/22/20 09:51 01/22/20 09:55 Temperature Temperature Source Pulse Rate 147 H 138 H Pulse Rate [Left Finger] Pulse Rate from SpO2 Sensor 148 H 137 H Respiratory Rate 25 H Respiratory Effort / Characteristics Respiratory Depth Respiratory Pattern Blood Pressure 134/103 H 121/103 H Blood Pressure Mean 126 106 Pulse Oximetry 98 97 Oxygen Delivery Method Mechanical Vent Mechanical Vent Oxygen Flow Rate 100 100 Fraction of Inspired Oxygen 50 Sepsis Recent Fever Within 48 Hours Sepsis New/Unexplained Change in Mental Status Sepsis Action Taken by Nursing End-Tidal CO2 63 66 01/22/20 09:56 01/22/20 10:01 01/22/20 10:05 Temperature Temperature Source Pulse Rate 128 H 127 H 126 H Pulse Rate [Left Finger] Pulse Rate from SpO2 Sensor 128 H 128 H 126 H Respiratory Rate Respiratory Effort / Characteristics Respiratory Depth Respiratory Pattern Blood Pressure 115/93 110/90 113/95 Blood Pressure Mean 107 95 100 Pulse Oximetry 98 98 97 Oxygen Delivery Method Mechanical Vent Mechanical Vent Oxygen Flow Rate 100 100 Fraction of Inspired Oxygen Sepsis Recent Fever Within 48 Hours Sepsis New/Unexplained Change in Mental Status Sepsis Action Taken by Nursing End-Tidal CO2 59 55 47 01/22/20 10:16 01/22/20 10:22 01/22/20 10:26 Temperature Temperature Source Pulse Rate 127 H 126 H 126 H Pulse Rate [Left Finger] Pulse Rate from SpO2 Sensor 127 H 124 H 126 H Respiratory Rate Respiratory Effort / Characteristics Respiratory Depth Respiratory Pattern Blood Pressure 127/109 H 122/92 119/90 Blood Pressure Mean 117 104 94 Pulse Oximetry 96 97 97 Oxygen Delivery Method Mechanical Vent Oxygen Flow Rate 100 Fraction of Inspired Oxygen Sepsis Recent Fever Within 48 Hours Sepsis New/Unexplained Change in Mental Status Sepsis Action Taken by Nursing End-Tidal CO2 62 41 51 Laboratory Data Result diagrams: 01/22/20 09:25 01/22/20 13:15 Lab Results 01/22/20 01/22/20 01/22/20 Range/Units 09:25 09:25 09:25 WBC 12.72 H (4.8-10.8) K/uL RBC 4.28 L (4.7-6.1) M/uL Hgb 13.2 L (14.0-18.0) g/dL POC Hgb (14.0-18.0) g/dl Hct 42.8 (42-52) % POC Hct (42-52) % MCV 100.0 (80-100) fL MCH 30.8 (25-34) pg MCHC 30.8 L (32-36) g/dL RDW Std Deviation 51.6 H (36.4-46.3) fL RDW Coeff of Nevin 14.2 (11.5-14.5) % Plt Count 265 (130-400) K/uL MPV 9.4 (7.4-10.4) fL Immature Gran % (Auto) 2.0 % Neut % (Auto) 65.2 % Lymph % (Auto) 27.4 % [place] % (Auto) 4.8 % Eos % (Auto) 0.4 % Baso % (Auto) 0.2 % Neut # (Auto) 8.29 H (1.4-6.5) K/uL Lymph # (Auto) 3.49 H (1.2-3.4) K/uL [place] # (Auto) 0.61 H (0.11-0.59) K/uL Eos # (Auto) 0.05 (0-0.5) K/uL Baso # (Auto) 0.02 (0-0.2) K/uL Immature Gran # (Auto) 0.26 H (0.00-0.02) K/uL ESR (0-14) mm/hr PT 10.0 (9.0-12.0) Seconds INR 0.9 (0.9-1.1) APTT < 20.0 L (21.0-31.0) Seconds PTT Ratio 0.7 POC Sodium (135-144) mmol/L Sodium 138 (136-145) mmol/L POC Potassium (3.3-5.0) mmol/L Potassium 5.5 H (3.5-5.1) mmol/L POC Chloride (101-112) mmol/L Chloride 102 (98-107) mmol/L Carbon Dioxide 28 (21-32) mmol/L POC Total CO2 (24-31) mmol/L Anion Gap 8.0 (3-11) POC Anion Gap (16-25) mmol/L POC BUN (7-18) mg/dl BUN 20 H (7-18) mg/dl Creatinine 1.60 H (0.6-1.4) mg/dl POC Creatinine (0.6-1.3) mg/dl Est Cr Clr Drug Dosing Not Reportable Est GFR ( Amer) 54.2 Est GFR (Non-Af Amer) 46.8 BUN/Creatinine Ratio 12.5 (10-20) Glucose 382 H* (70-99) mg/dl POC Glucose (other) (70-99) mg/dl Calcium 8.7 (8.5-10.1) mg/dl POC Ioniz Calcium Gerardo (1.12-1.32) mmol/l Magnesium 2.8 H (1.8-2.4) mg/dl Total Bilirubin 0.3 (0.2-1) mg/dl AST 92 H (15-37) U/L ALT 95 H (12-78) U/L Alkaline Phosphatase 64 (45-117) U/L Troponin I 0.851 H* (0-0.045) ng/ml NT-Pro-B Natriuret Pep 527 (0-900) pg/ml Total Protein 6.4 (6.4-8.2) gm/dl Albumin 3.2 L (3.4-5.0) gm/dl Globulin 3.2 (2.5-4.0) gm/dl Albumin/Globulin Ratio 1.0 (0.9-2) Beta-Hydroxybutyric Acd 1.22 (0.2-2.81) mg/dl Procalcitonin (0-0.5) ng/ml 01/22/20 01/22/20 01/22/20 Range/Units 09:25 09:25 09:46 WBC (4.8-10.8) K/uL RBC (4.7-6.1) M/uL Hgb (14.0-18.0) g/dL POC Hgb 13.9 L (14.0-18.0) g/dl Hct (42-52) % POC Hct 41 L (42-52) % MCV (80-100) fL MCH (25-34) pg MCHC (32-36) g/dL RDW Std Deviation (36.4-46.3) fL RDW Coeff of Nevin (11.5-14.5) % Plt Count (130-400) K/uL MPV (7.4-10.4) fL Immature Gran % (Auto) % Neut % (Auto) % Lymph % (Auto) % [place] % (Auto) % Eos % (Auto) % Baso % (Auto) % Neut # (Auto) (1.4-6.5) K/uL Lymph # (Auto) (1.2-3.4) K/uL [place] # (Auto) (0.11-0.59) K/uL Eos # (Auto) (0-0.5) K/uL Baso # (Auto) (0-0.2) K/uL Immature Gran # (Auto) (0.00-0.02) K/uL ESR 13 (0-14) mm/hr PT (9.0-12.0) Seconds INR (0.9-1.1) APTT (21.0-31.0) Seconds PTT Ratio POC Sodium 135 (135-144) mmol/L Sodium (136-145) mmol/L POC Potassium 5.6 H (3.3-5.0) mmol/L Potassium (3.5-5.1) mmol/L POC Chloride 101 (101-112) mmol/L Chloride (98-107) mmol/L Carbon Dioxide (21-32) mmol/L POC Total CO2 25 (24-31) mmol/L Anion Gap (3-11) POC Anion Gap 16.0 (16-25) mmol/L POC BUN 25 H (7-18) mg/dl BUN (7-18) mg/dl Creatinine (0.6-1.4) mg/dl POC Creatinine 1.4 H (0.6-1.3) mg/dl Est Cr Clr Drug Dosing Est GFR ( Amer) Est GFR (Non-Af Amer) BUN/Creatinine Ratio (10-20) Glucose (70-99) mg/dl POC Glucose (other) 387 H* (70-99) mg/dl Calcium (8.5-10.1) mg/dl POC Ioniz Calcium Gerardo 1.20 (1.12-1.32) mmol/l Magnesium (1.8-2.4) mg/dl Total Bilirubin (0.2-1) mg/dl AST (15-37) U/L ALT (12-78) U/L Alkaline Phosphatase (45-117) U/L Troponin I (0-0.045) ng/ml NT-Pro-B Natriuret Pep (0-900) pg/ml Total Protein (6.4-8.2) gm/dl Albumin (3.4-5.0) gm/dl Globulin (2.5-4.0) gm/dl Albumin/Globulin Ratio (0.9-2) Beta-Hydroxybutyric Acd (0.2-2.81) mg/dl Procalcitonin < 0.05 (0-0.5) ng/ml Administered Medications Propofol (Diprivan) 1,000 mg in 100 mls @ 15.525 mls/hr IV .[id number] JUDD; Protocol Stop: 01/25/20 10:14 Last Admin: 01/22/20 15:12 Dose: Not Given Documented by: [id number] Titration: 01/22/20 13:58 Dose: 0 mcg/kg/min, 0 mls/hr Documented by: [id number] Titration: 01/22/20 12:19 Dose: 25 mcg/kg/min, 15.5 mls/hr Documented by: [id number] Titration: 01/22/20 12:03 Dose: 30 mcg/kg/min, 18.6 mls/hr Documented by: [id number] Titration: 01/22/20 11:54 Dose: 25 mcg/kg/min, 15.5 mls/hr Documented by: [id number] Titration: 01/22/20 11:15 Dose: 30 mcg/kg/min, 18.6 mls/hr Documented by: [id number] Admin: 01/22/20 09:59 Dose: 10 mcg/kg/min, 6.2 mls/hr Documented by: [id number] Cosigned by: [id number] Sodium Chloride (Nss 1000ml) 1,000 mls @ 125 mls/hr IV .Q8H [facility] Stop: 01/22/20 20:14 Last Admin: 01/22/20 13:57 Dose: Not Given Documented by: [id number] Fentanyl Citrate (Fentanyl Drip) 1,250 mcg in 250 mls @ 20 mls/hr IV .[id number] JUDD; Protocol Stop: 02/05/20 13:39 Last Titration: 01/22/20 14:40 Dose: 100 mcg/hr, 20 mls/hr Documented by: [id number] Cosigned by: [id number] Admin: 01/22/20 13:57 Dose: 50 mcg/hr, 10 mls/hr Documented by: [id number] Cosigned by: [id number] Norepinephrine Bitartrate 8 mg (/ Dextrose) 508 mls @ 39.586 mls/hr IV .[id number] JUDD; Protocol Stop: 02/21/20 13:59 Last Titration: 01/22/20 15:13 Dose: 0.1 mcg/kg/min, 39.6 mls/hr Documented by: [id number] Titration: 01/22/20 15:00 Dose: 0.08 mcg/kg/min, 31.7 mls/hr Documented by: [id number] Admin: 01/22/20 14:40 Dose: 0.05 mcg/kg/min, 19.8 mls/hr Documented by: [id number] Cosigned by: [id number] Midazolam HCl (Versed) 125 mg in 250 mls @ 2 mls/hr IV .Q96H PRN; Protocol PRN Reason: Agitation Stop: 02/21/20 15:00 Last Admin: 01/22/20 15:12 Dose: 1 mg/hr, 2 mls/hr Documented by: [id number] Cosigned by: [id number] Discontinued Medications Albuterol (Albut/Ipratrop 3mg/0.5mg Neb 3 Ml Vial) Confirm Administered Dose 12 ml .ROUTE .STK-MED ONE Stop: 01/22/20 09:23 Last Admin: 01/22/20 10:24 Dose: Not Given Documented by: [id number] Albuterol (Albut/Ipratrop 3mg/0.5mg Neb 3 Ml Vial) 12 ml INH ONE STA Stop: 01/22/20 09:29 Last Admin: 01/22/20 09:35 Dose: 12 ml Documented by: [id number] Diltiazem HCl (Diltiazem Hcl 5 Mg/Ml 5 Ml Vial) Confirm Administered Dose 25 mg IV .STK-MED ONE Stop: 01/22/20 09:47 Last Increment: 01/22/20 09:45 Dose: 10 mg Documented by: [id number] Cosigned by: [id number] Etomidate (Etomidate 2 Mg/Ml 20 Ml Vial) 30 mg IV NOW STA Stop: 01/22/20 09:39 Last Admin: 01/22/20 09:35 Dose: 30 mg Documented by: [id number] Fentanyl Citrate (Fentanyl Citrate 100 Mcg/2 Ml Vial) 50 mcg IV NOW STA Stop: 01/22/20 10:02 Last Admin: 01/22/20 09:54 Dose: 50 mcg Documented by: [id number] Fentanyl Citrate (Fentanyl Citrate 100 Mcg/2 Ml Vial) 50 mcg IV NOW STA Stop: 01/22/20 11:10 Last Admin: 01/22/20 11:26 Dose: 50 mcg Documented by: [id number] Sodium Chloride (Nss 1000ml) 500 mls @ 999 mls/hr IV .Q31M ONE Stop: 01/22/20 12:29 Last Infusion: 01/22/20 13:02 Dose: 0 mls/hr Documented by: [id number] Admin: 01/22/20 12:03 Dose: 999 mls/hr Documented by: [id number] Norepinephrine Bitartrate 4 mg (/ Sodium Chloride) 254 mls @ 19.793 mls/hr IV .[id number] STA; Protocol Stop: 01/23/20 02:37 Last Admin: 01/22/20 14:40 Dose: Not Given Documented by: [id number] Bumetanide 1 mg/ Syringe 4 mls @ 4 mls/min IV NOW ONE Stop: 01/22/20 14:31 Last Admin: 01/22/20 14:39 Dose: 4 mls/min Documented by: [id number] Lorazepam (Ativan) 1 mg in 2 mls @ 2 mls/min IV NOW STA Stop: 01/22/20 14:45 Last Admin: 01/22/20 15:11 Dose: Not Given Documented by: [id number] Midazolam HCl (Midazolam Hcl 1 Mg/Ml 2ml Vial) Confirm Administered Dose 2 mg .ROUTE .STK-MED ONE Stop: 01/22/20 09:51 Last Admin: 01/22/20 09:55 Dose: 2 mg Documented by: [id number] Midazolam HCl (Midazolam Hcl 5 Mg/Ml 1 Ml Vial) 2 mg IV NOW STA Stop: 01/22/20 10:32 Last Admin: 01/22/20 10:35 Dose: 2 mg Documented by: [id number] Midazolam HCl (Midazolam Hcl 1 Mg/Ml 2ml Vial) Confirm Administered Dose 2 mg .ROUTE .STK-MED ONE Stop: 01/22/20 10:33 Last Admin: 01/22/20 10:41 Dose: 2 mg Documented by: [id number] Midazolam HCl (Midazolam Hcl 1 Mg/Ml 2ml Vial) 2 mg IV Q2H PRN PRN Reason: RASS goal -1 Stop: 02/21/20 13:39 Last Admin: 01/22/20 13:57 Dose: 2 mg Documented by: [id number] Midazolam HCl (Midazolam Hcl 1 Mg/Ml 2ml Vial) 2 mg IV NOW STA Stop: 01/22/20 14:17 Last Admin: 01/22/20 14:40 Dose: 2 mg Documented by: [id number] Midazolam HCl (Midazolam Hcl 125mg/250ml D5w) Confirm Administered Dose 125 mg .ROUTE .STK-MED ONE Stop: 01/22/20 14:55 Last Admin: 01/22/20 15:12 Dose: Not Given Documented by: [id number] Miscellaneous (Rapid Sequence Induction Bag) Confirm Administered Dose 1 ea .ROUTE .STK-MED ONE Stop: 01/22/20 09:12 Last Admin: 01/22/20 10:23 Dose: Not Given Documented by: [id number] Perflutren Lipid Microsphere (Perflutren Lipid Microsphere (Definity)) 2 ml IV ONCE ONE Stop: 01/22/20 14:00 Last Admin: 01/22/20 14:00 Dose: 2 ml Documented by: [id number] Propofol (Propofol Iv Emulsion 10 Mg/Ml 100 Ml Vial) Confirm Administered Dose 1,000 mg IV .STK-MED ONE Stop: 01/22/20 09:43 Last Admin: 01/22/20 11:13 Dose: Not Given Documented by: [id number] Succinylcholine Chloride (Succinylcholine Chloride 20 Mg/Ml 10 Ml Vial) 150 mg IV NOW STA Stop: 01/22/20 09:39 Last Admin: 01/22/20 09:35 Dose: 150 mg Documented by: [id number] Discharge Plan Visit Data Chief Complaint: Respiratory Distress ED Provider: Jesús Mijares Discharge Problem: Acute on chronic respiratory failure with hypoxia and hypercapnia, COPD (chronic obstructive pulmonary disease), Non-ST elevated myocardial infarction (non-STEMI), Acute respiratory acidosis Patient Disposition: Admitted As Inpatient Discharge Instructions Interventions: ED Discharge Assessment Last Done: 01/22/20 12:45
[2020-01-22] MEDS ORDERED: SUCCINYLCHOLINE CHLORIDE 20 MG/ML 10 ML VIAL IV STA (09:38)
[2020-01-22] MEDS ORDERED: ETOMIDATE 2 MG/ML 20 ML VIAL IV STA (09:38)
--- NOTE | 2020-01-22 09:40 | XRay Report ---
SINGLE VIEW CHEST CLINICAL HISTORY: Dyspnea. FINDINGS: An AP, portable, upright chest radiograph is compared to study dated 07/31/2019 and correlat ed with chest CT dated 08/01/2019. The examination is degraded by portable technique, apical lordotic positioning, and patient rotation. The heart is mildly enlarged. The pulmonary vasculature is noncong ested. Advanced emphysema and chronic interstitial thickening are similar to previous. No airspace co nsolidation or large pleural effusion is identified. Foci of parenchyma scarring are noted in both melissa ngs. No pneumothorax is seen. The bony thorax is grossly intact. IMPRESSION: Cardiomegaly and advanced emphysema with no acute cardiopulmonary abnormality identified. ACT 112: Negative or not required by law. Electronically signed by: Armando Medina M.D. 01/22/2020 9:39 AM
[2020-01-22] MEDS ORDERED: ADENOSINE IV SOLN 3 MG/ML 2 ML VIAL IV ONE (09:43)
[2020-01-22 09:45] LABS: Basophils # (auto) 0.02 K/uL (0-0.2); Basophils % (auto) 0.2 %; Eosinophils # (auto) 0.05 K/uL (0-0.5); Eosinophils % (auto) 0.4 %; Hematocrit (blood only) 42.8 % (42-52); Hemoglobin 13.2 g/dL (14.0-18.0); Immature Granulocytes # (auto) 0.26 K/uL (0.00-0.02); Lymphocytes # (auto) 3.49 K/uL (1.2-3.4); Lymphocytes % (auto) 27.4 %; Mean Corpuscular Hemoglobin 30.8 pg (25-34); Mean Corpuscular Hgb Conc 30.8 g/dL (32-36); Mean Platelet Volume 9.4 fL (7.4-10.4); Monocytes # (auto) 0.61 K/uL (0.11-0.59); Monocytes % (auto) 4.8 %; Neutrophils # (auto) 8.29 K/uL (1.4-6.5); Neutrophils % (auto) 65.2 %; Platelet Count 265 K/uL (130-400); RDW Coefficient of Variation 14.2 % (11.5-14.5); RDW Standard Deviation 51.6 fL (36.4-46.3); Red Blood Count 4.28 M/uL (4.7-6.1); White Blood Count 12.72 K/uL (4.8-10.8)
[2020-01-22] MEDS ORDERED: dilTIAZem HCl 5 MG/ML 5 ML VIAL IV ONE (09:46)
[2020-01-22] MEDS ORDERED: MIDAZOLAM HCL 1 MG/ML 2ML VIAL ONE ×2 (09:50→10:32)
[2020-01-22 09:56] LABS: INR 0.9 (0.9-1.1)
[2020-01-22] MEDS: PROPOFOL IV EMULSION 10 MG/ML 100 ML VIAL IV ONE ×2 (09:59→11:13)
[2020-01-22] MEDS ORDERED: MIDAZOLAM HCL 1 MG/ML 2ML VIAL IV STA ×2 (09:59→14:16)
[2020-01-22] MEDS: propofoL 1,000 MG/100 ML VIAL IV SCH ×3 (09:59→15:12)
[2020-01-22] MEDS ORDERED: fentaNYL citrate 100 MCG/2 ML VIAL IV STA ×2 (10:01→11:09)
[2020-01-22] MEDS ORDERED: dilTIAZem HCl 5 MG/ML 5 ML VIAL IV STA (10:02)
[2020-01-22 10:04] LABS: Partial Thromboplastin Ratio 0.7; Partial Thromboplastin Time < 20.0 Seconds (21.0-31.0)
[2020-01-22 10:06] LABS: Alanine Aminotransferase 95 U/L (12-78); Albumin Level 3.2 gm/dl (3.4-5.0); Aspartate Aminotransferase 92 U/L (15-37); BUN Creatinine Ratio 12.5 (10-20); Blood Urea Nitrogen 20 mg/dl (7-18); Calcium 8.7 mg/dl (8.5-10.1); Carbon Dioxide 28 mmol/L (21-32); Chloride 102 mmol/L (98-107); Est GFR (African American) 54.2; Est GFR (Non-African American) 46.8; Glucose 382 mg/dl (70-99); Magnesium 2.8 mg/dl (1.8-2.4); Potassium 5.5 mmol/L (3.5-5.1); Sodium 138 mmol/L (136-145)
--- NOTE | 2020-01-22 10:06 | Critical Care Consultation ---
Date of Consultation January 22, 2020 Assessment & Plan (1) Stage 4 very severe COPD by GOLD classification: Reason Critically Ill: 59M with altered mental status and worsening respiratory status requiring intubation in the ED. NEURO: CAM ICU: Negative -Sedation with Versed gtt and Fentanyl gtt -Continue Lexapro CARDIAC: -Patient with known poor cardiac function with EF 25% -Had noted some chest pain on arrival, tachycardia with possible SVT, and elevated troponin -EKG after stabilization showing normal sinus rhythm with PAC's, but no acute ST elevations -Had unremarkable cath in July, but due to elevated troponins will start with Heparin gtt -Continue to trend troponins until downtrending -Continue ASA -Continue Plavix -Continue Toprol -Continue Rosuvastatin -Will attempt aggressive diureses, Bumex 1mg x1 ordered -Hypotension also fairly significant requiring pressors at this time -Plan for placement of central line later today -Continue IVF NSS 125ml/hr -Levophed gtt, MAP >65 -Hold lisinopril RESPIRATORY: -Patient with worsening respiratory status, intubated in the ED -Repeat CXR post intubation showing a high riding endotracheal tube that was a dvanced by respiratory therapy -CXR post advancement showing ET tube 5.4 cm above the holly and a nasogastric tube within the stomach -Currently ventilated AC TV 500, RR 24, PEEP 5, O2 40 -Suspect hypercapnia respiratory acidosis with initial ABG pCO2 97, improved to pCO2 52 after intubation -Low suspicion for infection, but will cover empirically with Rocephin GI: -Peptamin feeds RENAL/LYTES: -Replete as needed : -Rand cath ENDO: -insulin subq HEME: -No concerns of anemia at this time ID: -No obvious source of infection, though concern for sepsis with severe hypotension requiring pressors -COVID-19 negative, Respiratory Biofire negative, Urine negative -Lactate elevated at 3.4, 1.5 on repeat, likely secondary to hypotension as noted prior vs infection -Will start with empiric Rocephin 1g QD -Initial procal negative, will order repeat for tonight LINES/IV ACCESS: L arm art, peripherals CODE STATUS: Full DVT PROPHYLAXIS: Heparin gtt Thank you for allowing us to participate in the care of this patient. Please refer to my attending physician's documentation for any further recommendations. (2) NOLBERTO (acute kidney injury): (3) History of tobacco use disorder: (4) Acute metabolic encephalopathy: (5) Chronic respiratory failure with hypoxia and hypercapnia: (6) Systolic congestive heart failure with reduced left ventricular function, NYHA class 2: (7) Ischemic heart disease: (8) Acute on chronic respiratory failure with hypoxia and hypercapnia: (9) Acute respiratory acidosis: Supervising Physician Co-Signing Physician Notes Dr. Quach was resident physician during care of patient. I separately evaluated patient for obrien portions of the history and the exam. I was present during the critical portion of medical decision making, and I discussed the case with the resident. I generally agree with the findings and plan. Patient's chest x-ray demonstrated a high riding endotracheal tube this will be advanced by respiratory and a repeat chest x-ray will be obtained In reviewing the echocardiogram that was being performed it appeared the patient had significantly decreased function globally without significant wall motion abnormality. I have started the patient on heparin given the elevated troponins. Repeat EKG after further stabilization demonstrated normal sinus rhythm with premature atrial complexes and this is an abnormal EKG but no significant evidence to suggest acute ST elevation MT. In review of prior records he had a relatively unremarkable cardiac cath in July so I think progression of significant coronary artery disease is unlikely and the decrease in the EF is related to severe respiratory acidosis in the setting of severe stage IV COPD. We will proceed with aggressive diuresis. I have personally spent 55 minutes of critical care time in the direct management of this patient. This is a life/limb threatening event. This includes time spent evaluating patient, direct bedside care, chart review, placing orders, interpretation of diagnostic studies, discussion with consultants, patient, and/or family members regarding treatment decisions, as well as other required patient management activities. This time is exclusive of all separately billable procedures, and teaching time and separate from and in addition to any other critical care service time. History of Present Illness Reason for Consultation: Hypercarbic Respiratory Failure History of Present Illness Patient is a 59 year old male with PMHx stage 4 COPD on 2L NC at baseline, tobacco abuse, depression, hx NSTEMI, hx transient L apical balloon syndrome, and asthma who presented to the ED with altered mental status and worsening respiratory status. Patient was intubated at time of exam and unable to provide a history. History gathered from prior documentation. Patient had arrived to the ED with primary complaint of SOB and also noting some chest pain. He provided poor history at that time as well secondary to severe respiratory distress and required endotracheal intubation in the ED. Patients ABG at that time was found to be grossly respiratory acidotic with PCO2 in the 90's. Insurance Manager agronomy professor was consulted who accepted the patient, requesting a Biofire and COVID-19 PCR. Allergies Allergy/AdvReac Type Severity Reaction Status Date / Time No Known Drug Allergies Allergy Verified 01/22/20 09:48 Home Medications Home Medications Medication Instructions Recorded Confirmed Type cholecalciferol (vitamin D3) 1,000 unit PO QAM 01/17/18 01/22/20 History [Vitamin D3] ipratropium 0.5 mg-albuterol 3 mg 3 ml INHALATION Q6H PRN #360 ml 06/08/19 01/22/20 Rx (2.5 mg base)/3 mL nebulization soln bupropion HCl 150 mg 24 hr tablet, 300 mg PO QAM tab 06/09/19 01/22/20 History extended release escitalopram oxalate 10 mg tablet 20 mg PO QAM tab 06/09/19 01/22/20 History clopidogrel 75 mg PO QAM 30 Days #30 tab 08/05/19 01/22/20 Rx furosemide 40 mg PO QAM 30 Days #30 tab 08/05/19 01/22/20 Rx lisinopril [Zestril] 40 mg PO QAM 30 Days #30 tab 08/05/19 01/22/20 Rx metoprolol succinate 25 mg PO QAM 30 Days #30 tab 08/05/19 01/22/20 Rx tiotropium bromide [Spiriva 2 puff INHALATION QDL #4 gm 08/05/19 01/22/20 Rx Respimat] Non Invasive Ventilator #1 ea 11/04/19 12/23/19 Rx rosuvastatin 20 mg tablet 20 mg PO DAILY 11/04/19 01/22/20 History prednisone 10 mg tablet 10 mg PO DAILY #90 tab 11/05/19 01/22/20 Rx albuterol sulfate 90 mcg/actuation 2 puff INHALATION Q4 PRN #3 inhaler 01/20/20 01/22/20 Rx aerosol inhaler fluticasone propionate 230 2 puff INHALATION Q12 #3 inhaler 01/20/20 01/22/20 Rx mcg-salmeterol 21 mcg/actuation HFA inhaler aspirin 81 mg PO QAM 01/22/20 01/22/20 History roflumilast 500 mcg tablet 500 mcg PO QAM 90 Days #90 tab 01/22/20 01/22/20 Rx Patient History Medical History Anxiety Asthma Chronic back pain Chronic obstructive pulmonary disease Chronic respiratory failure with hypoxia and hypercapnia COPD exacerbation Depression Diverticular disease On home oxygen therapy Sleep apnea Stage 4 very severe COPD by GOLD classification Surgical History History of bowel resection DIVERTICULITIS History of herniorrhaphy X 5 Family History Other Hypertension Social History Smoking Status: Current every day smoker Tobacco Type: Cigarettes Cigarettes Per Day: Per chart; Second Hand Exposure: No; Do You Dip or Chew Tobacco: No; Hx Alcohol Use: No (per H&P) Hx Substance Use: No (per H&P) Preferred Language: Lebanese Communication Ability: Unable Communication Ability Comment: Sedated and intubated Pattern Grader Supervisor Required: No Beliefs That Will Affect Care: None marital status: Current Living Situation: Spouse Current Living Situation Comment: SPOUSE Other Information That Helps Us Care for You: No Feels Safe at Home: Yes Assistive Devices: Oxygen - Continuous Review of Systems Review of Systems: Unobtainable due to endotracheal tube and Unobtainable due to reduced consciousness Physical Exam Constitutional: + ill appearing Eyes: + anicteric sclerae; no conjunctival abnormality ENMT: Endotracheal tube in place Respiratory: Auscultation: + diminished lung sounds and + wheezes Cardiovascular: Rate/Rhythm: + tachycardic Heart Sounds: no murmur Vessels: posterior tibial pulses present and dorsalis pedis pulses present Gastrointestinal (Abdomen): Inspection/Auscultation: normal bowel sounds Percussion/Palpation: abdomen soft Neurologic: appropriate sedation Resident Activity Tracking Resident Involvement: Resident Care Provided Care Provided: Adult Hospital Medicine
--- NOTE | 2020-01-22 10:06 | Billing Data ---
Date of Service January 22, 2020 Coding Level of Care Code Critical Care 1st - mins
[2020-01-22 10:07] LABS: iSTAT Creatinine 1.4 mg/dl (0.6-1.3); iSTAT Hemoglobin 13.9 g/dl (14.0-18.0); iSTAT Ionized Calcium 1.2 mmol/l (1.12-1.32); iSTAT Potassium 5.6 mmol/L (3.3-5.0)
[2020-01-22 10:12] LABS: Alkaline Phosphatase 64 U/L (45-117); Bilirubin,Total 0.3 mg/dl (0.2-1); Globulin 3.2 gm/dl (2.5-4.0); Total Protein 6.4 gm/dl (6.4-8.2); Troponin I 0.851 ng/ml (0-0.045)
[2020-01-22 10:23] LABS: Beta-Hydroxybutyrate 1.22 mg/dl (0.2-2.81); NT Pro B Type Natriuretic Pept 527 pg/ml (0-900)
[2020-01-22] MEDS ORDERED: MIDAZOLAM HCL 5 MG/ML 1 ML VIAL IV STA ×2 (10:31→11:09)
--- NOTE | 2020-01-22 10:40 | XRay Report ---
SINGLE VIEW CHEST CLINICAL HISTORY: Respiratory failure. Intubation. FINDINGS: 2 AP, portable, supine chest radiographs are compared to study performed earlier the same d ay 01/22/2020 and correlated with chest CT dated 08/01/2019. The examination is degraded by portable te chnique, apical lordotic positioning, and patient rotation. An endotracheal tube has been placed. The tip projects 7.5 cm above the holly. The heart is mildly enlarged. The pulmonary vasculature is non congested. Advanced emphysema and chronic interstitial thickening are similar to previous. No airspac e consolidation or large pleural effusion is identified. Foci of parenchyma scarring are noted in bot h lungs. No pneumothorax is seen. The bony thorax is grossly intact. IMPRESSION: 1. An endotracheal tube has been placed as above. 2. Cardiomegaly and advanced emphysema with no acute cardiopulmonary abnormality identified. ACT 112: Negative or not required by law. Electronically signed by: Armando Medina M.D. 01/22/2020 10:38 AM
[2020-01-22 11:14] LABS: Appearance Urine Clear (Clear); Bilirubin Urine Negative (Negative); Blood Urine Negative (Negative); Color Urine Yellow; Glucose Urine UA Negative (Negative); Ketones Urine Negative (Negative); Leukocyte Esterase Urine Negative (Negative); Nitrite Urine Negative (Negative); Protein Urine Negative (Negative); Specific Gravity Urine 1.008 (1.000-1.030); Urobilinogen Urine Negative (Negative); pH Urine 6.5 (4.5-7.5)
--- NOTE | 2020-01-22 11:46 | History & Physical Report ---
Date of Service January 22, 2020 Assessment & Plan (1) Acute on chronic respiratory failure with hypoxia and hypercapnia: (2) Stage 4 very severe COPD by GOLD classification: (3) Systolic congestive heart failure with reduced left ventricular function, NYHA class 2: (4) Acute metabolic encephalopathy: (5) NOLBERTO (acute kidney injury): (6) History of tobacco use disorder: This is a 59-year-old male with PMH of severe COPD on 2 L nasal cannula O2, history of tobacco abuse, depression, history of NSTEMI, history of transient left apical ballooning syndrome, tremor due to multiple medications and other medical problems as below who presents with acute metabolic encephalopathy and acute on chronic respiratory failure with hypoxia and hypercapnea. Please see Dr. Escalona's addendum for assessment and plan details. History of Present Illness Chief Complaint: Acute respiratory failure Primary Care Provider: Izabela Gonzalez, This is a 59-year-old male with PMH of severe COPD on 2 L nasal cannula O2 and recently started non-invasive ventilation HS, history of tobacco abuse, depression, history of NSTEMI, history of transient left apical ballooning syndrome, tremor due to multiple medications and other medical problems as below who presents with altered mental status and difficulty breathing. Per history obtained from nursing and chart review -patient is intubated and sedated at this time. Patient was reportedly becoming more lethargic last evening and became concerned about him this morning. Was brought in by EMS and found to be hypoxic and placed on BiPAP. Patient was tachypneic in the mid 30s and resistant to BiPAP and was intubated by ED physician. Reported ABG findings of pH of 7.0 with PCO2 in the 90s, per ED physician- not yet posted in EMR. Will reorder ABG. Patient is afebrile, mild leukocytosis of 12.7, potassium 5.5, creatinine of 1.6, glucose of 382 and troponin of 0.851. Was initially a heart alert due to concern for ST elevation and heart rate in the 140s. Was given 10 of IV Cardizem was evaluated by Dr. Almanza with repeat EKG revealing sinus tachycardia. Arrhythmia attributed to severe respiratory acidosis. Dr. Car was contacted and accepted patient for ICU and requested Biofire and COVID PCR. UA unremarkable. CXR with cardiomegaly and advanced emphysema with no acute cardiopulmonary abnormality identified. ROS unobtainable due to reduced consciousness Allergies Allergy/AdvReac Type Severity Reaction Status Date / Time No Known Drug Allergies Allergy Verified 01/22/20 09:48 Home Medications Home Medications Medication Instructions Recorded Confirmed Type cholecalciferol (vitamin D3) 1,000 unit PO QAM 01/17/18 01/22/20 History [Vitamin D3] ipratropium 0.5 mg-albuterol 3 mg 3 ml INHALATION Q6H PRN #360 ml 06/08/19 01/22/20 Rx (2.5 mg base)/3 mL nebulization soln bupropion HCl 150 mg 24 hr tablet, 300 mg PO QAM tab 06/09/19 01/22/20 History extended release escitalopram oxalate 10 mg tablet 20 mg PO QAM tab 06/09/19 01/22/20 History clopidogrel 75 mg PO QAM 30 Days #30 tab 08/05/19 01/22/20 Rx furosemide 40 mg PO QAM 30 Days #30 tab 08/05/19 01/22/20 Rx lisinopril [Zestril] 40 mg PO QAM 30 Days #30 tab 08/05/19 01/22/20 Rx metoprolol succinate 25 mg PO QAM 30 Days #30 tab 08/05/19 01/22/20 Rx tiotropium bromide [Spiriva 2 puff INHALATION QDL #4 gm 08/05/19 01/22/20 Rx Respimat] Non Invasive Ventilator #1 ea 11/04/19 12/23/19 Rx rosuvastatin 20 mg tablet 20 mg PO DAILY 11/04/19 01/22/20 History prednisone 10 mg tablet 10 mg PO DAILY #90 tab 11/05/19 01/22/20 Rx albuterol sulfate 90 mcg/actuation 2 puff INHALATION Q4 PRN #3 inhaler 01/20/20 01/22/20 Rx aerosol inhaler fluticasone propionate 230 2 puff INHALATION Q12 #3 inhaler 01/20/20 01/22/20 Rx mcg-salmeterol 21 mcg/actuation HFA inhaler aspirin 81 mg PO QAM 01/22/20 01/22/20 History roflumilast 500 mcg tablet 500 mcg PO QAM 90 Days #90 tab 01/22/20 01/22/20 Rx Past Med/Surg History Medical History Anxiety Asthma Chronic back pain Chronic obstructive pulmonary disease Chronic respiratory failure with hypoxia and hypercapnia COPD exacerbation Depression Diverticular disease On home oxygen therapy Sleep apnea Stage 4 very severe COPD by GOLD classification Surgical History History of bowel resection DIVERTICULITIS History of herniorrhaphy X 5 Family History Other Hypertension Social History Smoking Status: Former smoker Tobacco Type: Cigarettes Second Hand Exposure: No; Hx Alcohol Use: No Hx Substance Use: Yes Last Used Substance: Days (ago) Preferred Language: Nauruan Communication Ability: Effective Treater Required: No Beliefs That Will Affect Care: None Current Living Situation: Spouse Current Living Situation Comment: SPOUSE Feels Safe at Home: Yes Assistive Devices: None Review of Systems Review of Systems: Unobtainable due to reduced consciousness Physical Exam Physical Exam: Please see Dr. Escalona's addendum for physical exam details. Results & Data Results & Data ([facility]) Vital Signs (Past 12 Hours) Vital Signs Temp Pulse Pulse Resp BP Pulse Ox 01/22/20 11:35 36.6 C 01/22/20 11:30 117 H 96/70 L 100 01/22/20 11:26 117 H 96/77 L 100 01/22/20 11:25 117 H 100 01/22/20 11:22 117 H 100 01/22/20 11:21 117 H 94/74 L 100 01/22/20 11:19 118 H 106/94 100 01/22/20 11:16 119 H 100 01/22/20 11:15 120 H 100 01/22/20 11:11 120 H 102/76 100 01/22/20 11:10 121 H 100 01/22/20 11:06 124 H 158/138 H 100 01/22/20 11:05 123 H 100 01/22/20 11:00 123 H 100 01/22/20 10:55 123 H 116/81 100 01/22/20 10:51 124 H 102/77 100 01/22/20 10:45 126 H 102/79 100 01/22/20 10:40 128 H 76/57 L 01/22/20 10:26 126 H 119/90 97 01/22/20 10:22 126 H 122/92 97 01/22/20 10:16 127 H 127/109 H 96 01/22/20 10:05 126 H 113/95 97 01/22/20 10:01 127 H 110/90 98 01/22/20 09:56 128 H 115/93 98 01/22/20 09:55 25 H 01/22/20 09:51 138 H 121/103 H 97 01/22/20 09:46 147 H 134/103 H 98 01/22/20 09:45 147 H 20 99 01/22/20 09:41 146 H 122/97 83 L 01/22/20 09:40 141 H 86 L 01/22/20 09:37 149 H 114/94 91 01/22/20 09:35 139 H 36 H 92 01/22/20 09:30 36.9 C 149 H 38 H 114/94 84 L 01/22/20 09:20 154 H 01/22/20 09:19 153 H 91 01/22/20 09:15 154 H 40 H 100 Laboratory Results Short CBC 01/22/20 01/22/20 01/22/20 Range/Units 09:25 09:25 10:51 WBC 12.72 H (4.8-10.8) K/uL Hgb 13.2 L (14.0-18.0) g/dL Hct 42.8 (42-52) % Plt Count 265 (130-400) K/uL NT-Pro-B Natriuret Pep 527 (0-900) pg/ml COVID-19 Eval Order Dup asRespPanOrdered BMP 01/22/20 09:25 Sodium 138 Potassium 5.5 H Chloride 102 Carbon Dioxide 28 BUN 20 H Creatinine 1.60 H Glucose 382 H* Calcium 8.7 Cardiac Enzymes 01/22/20 Range/Units 09:25 Troponin I 0.851 H* (0-0.045) ng/ml Liver Function 01/22/20 Range/Units 09:25 Total Bilirubin 0.3 (0.2-1) mg/dl AST 92 H (15-37) U/L ALT 95 H (12-78) U/L Alkaline Phosphatase 64 (45-117) U/L Albumin 3.2 L (3.4-5.0) gm/dl Urine 01/22/20 Range/Units 10:50 Urine Color Yellow Urine Appearance Clear (Clear) Urine pH 6.5 (4.5-7.5) Ur Specific [place] 1.008 (1.000-1.030) Urine Protein Negative (Negative) Urine Glucose (UA) Negative (Negative) Diagnostic Findings CXR: IMPRESSION: 1. An endotracheal tube has been placed as above. 2. Cardiomegaly and advanced emphysema with no acute cardiopulmonary abnormality identified. Code Status & VTE Plan VTE Prophylaxis Plan VTE Prophylaxis will be ordered: Yes Supervising Physician Co-Signing Physician Notes I have seen and examined the patient with physician ophthalmology assistant while patient was in the Emergency room and awaiting transfer to the ICU on Physical Exam General/neuro/respiratory: patient intubated and sedated Heart Rate: mild tachycardia abdomen: soft, truncal obesity Extremities: bilateral lower feet somewhat cold to touch but normal body temperature, not hypothermic Assessment and Plan -main issue is that patient presents to the emergency room on 01/22/2020 with increased work of breathing, oxygen desaturation, and hypercarbia, likely respiratory acidosis, also tachycardia with possible SVT (supraventricular tachycardia). Lung imaging does not any clear infiltrates and COVID-19 test are negative so presumably the cause of acute respiratory failure is due to advanced emphysema/COPD. there is elevated initial troponin of 0.8 in a patient known in the past to have a poor ejection fraction of 25%. heart rate control initial with IV calcium channel jean-paul, can consider further diltiazem versus beta blockers. patient should continue to have the troponins trended. patient likely have demand ischemia from the respiratory distress but a repeat echocardiogram can be repeated. can consider giving home dose dual antiplatelets via feeding tube or aspirin alone by rectal. trend the CBC. no known history of diabetes mellitus but initial POC glucose above 300s. unclear whether this was lab error versus from IV medications with glucose. patient did not receive any insulin and subsequent POC glucose 146. pharmacy glycemic consult requested. mildly elevated serum potassium levels above 5. further lab trend are pending. DVT prophylaxis with heparin IV 5000 units q12 hours given patient's elevated creatinine with acute kidney injury. give IV fluids and trend the renal function and re-assess the volume status and blood pressures. defer to ICU management for any line access and pressors if needed -agree with other assessment and plans of health issues as documented by physician ophthalmology assistant -Patient is under ICU level of care and ventilation management and other further medical issues will be decided with and by the ICU team, ICU physician -My colleague Dr. Trevino will the hospitalist attending starting on 01/23/2020
[2020-01-22] MEDS ORDERED: SODIUM CHLORIDE 0.9% 1000ML 500 ML IV ONE (11:59)
[2020-01-22] MEDS ORDERED: GLUCAGON FOR INJ 1 MG VIAL SQ PRN (12:08)
[2020-01-22] MEDS ORDERED: GLUCOSE 10 TABS/TUBE PO PRN (12:08)
[2020-01-22] MEDS ORDERED: DEXTROSE 50% 50 ML SYRINGE IV PRN (12:08)
[2020-01-22] MEDS ORDERED: GLUCOSE 40% GEL 15 GM TUBE PO PRN (12:08)
[2020-01-22 12:13] LABS: Adenovirus PCR Not Detected (NotDetected); Bordetella parapertussis PCR Not Detected (NotDetected); Bordetella pertussis PCR Not Detected (NotDetected); Chlamydia pneumoniae PCR Not Detected (NotDetected); Coronavirus 229E PCR Not Detected (NotDetected); Coronavirus CoV-2 (COVID19)PCR Not Detected (NotDetected); Coronavirus HKU1 PCR Not Detected (NotDetected); Coronavirus NL63 PCR Not Detected (NotDetected); Coronavirus OC43PCR Not Detected (NotDetected); Human Metapneumovirus PCR Not Detected (NotDetected); Influenza A PCR Not Detected (NotDetected); Influenza B PCR Not Detected (NotDetected); Mycoplasma pneumoniae PCR Not Detected (NotDetected); Parainfluenza Virus 1 PCR Not Detected (NotDetected); Parainfluenza Virus 2 PCR Not Detected (NotDetected); Parainfluenza Virus 3 PCR Not Detected (NotDetected); Parainfluenza Virus 4 PCR Not Detected (NotDetected); Respiratory Syncytial VirusPCR Not Detected (NotDetected); Rhinovirus/Enterovirus PCR Not Detected (NotDetected)
[2020-01-22] MEDS ORDERED: SODIUM CHLORIDE 0.9% 1000ML 1,000 ML IV SCH (12:15)
[2020-01-22] MEDS ORDERED: PHARMACY GLYCEMIC MGMT CONSULT SCH (12:58)
[2020-01-22] MEDS ORDERED: ICU PROTOCOL FOR HYPERGLYCEMIA PRN (13:31)
[2020-01-22] MEDS ORDERED: MIDAZOLAM HCL 1 MG/ML 2ML VIAL IV PRN (13:40)
[2020-01-22] MEDS ORDERED: STAT IV Infusion **Titration per Protocol STA ×2 (13:40→15:01)
[2020-01-22 13:43] LABS: Alanine Aminotransferase 175 U/L (12-78); Albumin Level 3.5 gm/dl (3.4-5.0); Aspartate Aminotransferase 184 U/L (15-37); BUN Creatinine Ratio 16.8 (10-20); Blood Urea Nitrogen 25 mg/dl (7-18); C Reactive Protein < 0.29 mg/dl (0-0.29); Calcium 8.7 mg/dl (8.5-10.1); Carbon Dioxide 24 mmol/L (21-32); Chloride 108 mmol/L (98-107); Creatinine Clr Calc Pharmacy 66.9 ml/min; Est GFR (African American) 58.6; Est GFR (Non-African American) 50.6; Glucose 134 mg/dl (70-99); Potassium 5.1 mmol/L (3.5-5.1); Sodium 140 mmol/L (136-145)
[2020-01-22] MEDS ORDERED: NOREPINEPHRINE BIT IV STA (13:48)
[2020-01-22] MEDS ORDERED: SODIUM CHLORIDE 0.9% IV STA (13:48)
[2020-01-22 13:54] LABS: iSTAT Allen Test Pass; iSTAT Arterial Blood Gas HCO3 26 meg/L (19-24); iSTAT Arterial Blood Gas pCO2 52 mmHg (35-46); iSTAT Arterial Blood Gas pO2 194 mmHg (80-95); iSTAT Carbon Dioxide 27 mmol/L (24-31); iSTAT FiO2 50 %; iSTAT Site L Radial
[2020-01-22] MEDS: fentaNYL DRIP 1,250 MCG/250 ML BAG IV SCH ×2 (13:57→22:40)
[2020-01-22] MEDS ORDERED: PERFLUTREN LIPID MICROSPHERE (DEFINITY) IV ONE (13:59)
[2020-01-22 14:00] LABS: Albumin Globulin Ratio 1.2 (0.9-2); Alkaline Phosphatase 58 U/L (45-117); Bilirubin,Total 0.7 mg/dl (0.2-1); Total Protein 6.5 gm/dl (6.4-8.2)
[2020-01-22] MEDS ORDERED: PEPTAMEN INTENSE VHP 1.0 CAL 1,000 ML BAG OG SCH (14:00)
[2020-01-22] MEDS ORDERED: BUMETANIDE 1 MG in SYRINGE 0 ML IV ONE (14:30)
[2020-01-22] MEDS: NOREPINEPHRINE (Adult) 8 MG in DEXTROSE 5% 500 ML IV SCH ×2 (14:40→22:40)
[2020-01-22] MEDS ORDERED: LORazepam 1 MG/2 ML VIAL IV STA (14:44)
[2020-01-22] MEDS ORDERED: MIDAZOLAM HCL 125MG/250ML D5W ONE (14:54)
--- NOTE | 2020-01-22 14:54 | Pharmacy Report ---
Pharmacy Glycemic Short Note 2 - Date of Service January 22, 2020 - Glycemic Short BSG Results (Last 24 hours): 01/22/20 01/22/20 01/22/20 09:25 09:46 12:11 Glucose 382 H* POC Glucose 146 H POC Glucose (other) 387 H* 01/22/20 13:15 Glucose 134 H POC Glucose POC Glucose (other) OUTPATIENT ANTIDIABETIC REGIMEN: * N/A * A1c = 6.0% 07/2019 ASSESSMENT: * Patient admitted to ICU with acute on chronic resp failure, severe COPD * He is now intubated, sedated and requiring pressors - multiple risk factors for stress induced hyperglycemia. * He initially was hyperglycemic on presentation however his last 2 BSGs 130- 140s range. He has no prior dx of DM and last A1c was consistent w/ "pre- diabetes". Will check A1c with next lab draw to determine if glycemic control has deteriorated. * Currently there are no steroids ordered. PLAN FOR INPATIENT GLYCEMIC CONTROL: * Monitor BSGs Q 4 hrs * If BSG > 220 x 1: Begin IV insulin infusion per "moderate" stress dosing, titrate to goal range 110-180mg/dL * If BSG > 180 x 1: Begin Lantus 15 units SQ x 1 * Bolus insulin * NovoLog per scale Q 4 hrs * Goal Range: Low 110 mg/dL - High 140 mg/dL * Correction Factor: 20 mg/dL/unit * Nutritional / Prandial insulin: None at this time PLAN FOR DISCHARGE: * to be determined
[2020-01-22] MEDS ORDERED: MIDAZOLAM HCL 125 MG/250 ML BAG IV PRN (15:01)
--- NOTE | 2020-01-22 15:21 | Procedure Note ---
Procedure Note Date of Service January 22, 2020 Procedure date: Noted above Procedure: Left radial artery cannulation Pre-procedure Diagnosis: Need for invasive monitoring, hypotension/frequent blood draws Post-procedure Diagnosis: same as above Prior to Procedure: Informed Consent: Emergent consent implied given poor cardiac function and hypotension Attending Staff: Karlie Car DO Skin Prep: Chlorhexidine Anesthesia: 3 mL 1% lidocaine without epinephrine The identity of the patient was confirmed and a bedside time out was performed. Description of Procedure: After sterile prep and sterile drape utilizing standard sterile technique the superficial skin of the left radial artery was anesthetized. The target artery was identified via dynamic ultrasound guidance and entered with a 20-gauge arrow Angiocath. Pulsatile bright red blood return was noted. Via modified Seldinger technique the self-contained guidewire was advanced and the Angiocath advanced over the guidewire. The guidewire was removed and brisk arterial blood return was noted. The pressure monitor was connected, and the arterial line was secured via commercial securement device. A sterile dressing was then applied. Complications: None Estimated blood loss: Trace Patient tolerated the procedure well. Coding CPT Codes Tubes, Drains, and Vasc Access - Tubes, Drains, and Vasc Access: [id number] Insertion Catheter, Artery ([id number]) [facility] [place] Codes (Charges) Tubes, Drains, and Vasc Access Procedure 1: Tubes, Drains, and Vasc Access: [id number] Insertion Catheter, Artery
[2020-01-22 15:58] LABS: iSTAT Arterial Blood Gas pCO2 97 mmHg (35-46); iSTAT Arterial Blood Gas pH 7.06 (7.35-7.45); iSTAT Arterial Blood Gas pO2 575 mmHg (80-95); iSTAT Carbon Dioxide 30 mmol/L (24-31); iSTAT Hematocrit 41 % (42-52); iSTAT Hemoglobin 13.9 g/dl (14.0-18.0); iSTAT Sodium 134 mmol/L (135-144)
[2020-01-22 15:59] LABS: iSTAT Arterial Blood Gas HCO3 27 meg/L (19-24); iSTAT Sample Type Arterial
[2020-01-22] MEDS: HEPARIN SODIUM/DEXTROSE 25,000 UNITS/500 ML BAG IV SCH (16:03)
[2020-01-22] MEDS ORDERED: HEPARIN IV BOLUS 7,000 UNITS in SYRINGE 0 ML IV ONE (16:15)
--- NOTE | 2020-01-22 16:17 | XRay Report ---
XR chest 1V portable CLINICAL HISTORY: Respiratory failure COMPARISON STUDY: 01/22/2020 FINDINGS: There is an endotracheal tube 5.4 cm above the holly. There is a nasogastric tube in the s tomach. There is pulmonary emphysema. There is no lobar consolidation.[ IMPRESSION: 1. Pulmonary emphysema 2. Endotracheal tube 5.4 cm above the holly 3. Nasogastric tube within the stomach ACT 112: Negative or not required by law. Electronically signed by: Kyle Liang M.D. 01/22/2020 4:16 PM
[2020-01-22] MEDS ORDERED: INSULIN ASPART 100 UNITS/ML 3 ML PEN SC SCH (16:30)
[2020-01-22] MEDS: INSULIN ASPART 100 UNITS/ML 3 ML PEN SC SCH ×2 (18:10→20:15)
[2020-01-22] MEDS: cefTRIAXone SODIUM 2,000 MG in DEXTROSE 5% 50 ML IV SCH (18:11)
[2020-01-22] MEDS: ALBUT/IPRATROP 3MG/0.5MG NEB 3 ML VIAL NEB PRN ×2 (19:51→23:10)
[2020-01-22] MEDS: MIDAZOLAM BOLUS FROM BAG IV PRN ×2 (20:00→21:17)
[2020-01-22] MEDS ORDERED: INSULIN GLARGINE SOLOSTAR 100 UNITS/ML 3 ML PEN SC ONE (20:30)
[2020-01-22] MEDS ORDERED: HEPARIN SOD 5,000 UNIT/0.5 ML VIAL SQ SCH (21:00)
[2020-01-22 21:23] LABS: Partial Thromboplastin Ratio > 5.0
[2020-01-22 21:29] LABS: Partial Thromboplastin Time > 139.0 Seconds (21.0-31.0)
--- NOTE | 2020-01-22 22:48 | Electrocardiogram Report ---
Test Reason : Blood Pressure : / mmHG Vent. Rate : 161 BPM Atrial Rate : 161 BPM P-R Int : 090 ms QRS Dur : 028 ms QT Int : 296 ms P-R-T Axes : 079 180 100 degrees QTc Int : 484 ms Poor data quality, interpretation may be adversely affected Rhythm uncertain, possible SVT Non-specific intra-ventricular conduction block Inferior infarct Abnormal ECG When compared with ECG of 31-JUL-2019 15:55, QRS duration has increased Inferior infarct is now Present Confirmed by Tulio Begum ([id number]) on 01/22/2020 10:47:50 PM Referred By: REFERRED SELF Confirmed By:Tulio Begum
--- NOTE | 2020-01-22 22:50 | Electrocardiogram Report ---
Test Reason : Blood Pressure : / mmHG Vent. Rate : 155 BPM Atrial Rate : 155 BPM P-R Int : 000 ms QRS Dur : 162 ms QT Int : 158 ms P-R-T Axes : 000 -75 000 degrees QTc Int : 254 ms Possible Sinus tachycardia Left axis deviation Right bundle branch block Inferior infarct , age undetermined Abnormal ECG When compared with ECG of 22-JAN-2020 09:25, Current study has much less artifact Confirmed by Tulio Begum ([id number]) on 01/22/2020 10:50:09 PM Referred By: REFERRED SELF Confirmed By:Tulio Begum
--- NOTE | 2020-01-22 22:52 | Electrocardiogram Report ---
Test Reason : Blood Pressure : / mmHG Vent. Rate : 129 BPM Atrial Rate : 129 BPM P-R Int : 000 ms QRS Dur : 098 ms QT Int : 288 ms P-R-T Axes : 000 -54 083 degrees QTc Int : 422 ms Sinus tachycardia Left axis deviation Low voltage QRS Inferior infarct (cited on or before 22-JAN-2020) Cannot rule out Anterior infarct , age undetermined Abnormal ECG When compared with ECG of 22-JAN-2020 09:42, Right bundle branch block is no longer Present Confirmed by Tulio Begum ([id number]) on 01/22/2020 10:52:16 PM Referred By: REFERRED SELF Confirmed By:Tulio Begum
--- NOTE | 2020-01-22 23:09 | Electrocardiogram Report ---
Test Reason : Blood Pressure : / mmHG Vent. Rate : 096 BPM Atrial Rate : 096 BPM P-R Int : 152 ms QRS Dur : 080 ms QT Int : 346 ms P-R-T Axes : 090 034 055 degrees QTc Int : 437 ms Sinus rhythm with Premature atrial complexes Low voltage QRS Septal infarct (cited on or before 31-JUL-2019) Abnormal ECG When compared with ECG of 22-JAN-2020 09:58, Nonspecific T wave abnormality is now present in inferior leads Premature atrial complexes are now Present Confirmed by Tulio Begum ([id number]) on 01/22/2020 11:09:11 PM Referred By: REFERRED SELF Confirmed By:Tulio Begum
[2020-01-22 23:23] LABS: Partial Thromboplastin Ratio 3.4
[2020-01-22 23:26] LABS: Partial Thromboplastin Time 93.7 Seconds (21.0-31.0)
[2020-01-23] MEDS: INSULIN ASPART 100 UNITS/ML 3 ML PEN SC SCH ×6 (00:03→14:51)
[2020-01-23] MEDS: MIDAZOLAM BOLUS FROM BAG IV PRN (01:00)
[2020-01-23] MEDS: ALBUT/IPRATROP 3MG/0.5MG NEB 3 ML VIAL NEB PRN ×5 (03:10→23:14)
--- NOTE | 2020-01-23 05:56 | Critical Care Progress Note ---
Date of Service January 23, 2020 Assessment & Plan (1) Stage 4 very severe COPD by GOLD classification: Reason Critically Ill: 59M with altered mental status and worsening respiratory status requiring intubation in the ED. NEURO: CAM ICU: Negative -Sedation with Versed gtt and Fentanyl gtt - has since been discontinued entirely -Continue Lexapro CARDIAC: -Patient with known poor cardiac function with EF 25% -Had noted some chest pain on arrival, tachycardia with possible SVT, and elevated troponin -EKG after stabilization showing normal sinus rhythm with PAC's, but no acute ST elevations -Had unremarkable cath in July, but due to elevated troponins will start with Heparin gtt -Continue to trend troponins until downtrending -Will DC Heparin gtt @ 24 hours -Continue ASA -Continue Plavix -Continue Toprol -Continue Rosuvastatin -Will attempt aggressive diureses, Bumex 1mg x1 ordered -Resume patients home Lasix 40 QD -Hypotension also fairly significant requiring pressors on admission to ICU - was able to be discontinued this AM, no longer on any pressors -Central line was not placed, patient only requiring heparin infusion at this time. -Continue IVF NSS 125ml/hr -- DC fluids -Levophed gtt, MAP >65 -- discontinued this AM -Hold lisinopril RESPIRATORY: -Patient with worsening respiratory status, intubated in the ED -Repeat CXR post intubation showing a high riding endotracheal tube that was advanced by respiratory therapy -CXR post advancement showing ET tube 5.4 cm above the holly and a nasogastric tube within the stomach -Initially Ventilated AC TV 500, RR 24, PEEP 5, O2 40 -- Currently on SBT CPAP -Consider extubation later today if tolerable -Suspect hypercapnia respiratory acidosis with initial ABG pCO2 97, improved to pCO2 52 after intubation -Low suspicion for infection, but will cover empirically with Rocephin -If symptoms worsen, consider increasing coverage to Cefepime/Levaquin -Patient had written this AM that he had not been taking his medications due to cost -Resume Roflumilast 500mcg QD this AM GI: -Peptamin feeds RENAL/LYTES: -Replete as needed : -Rand cath ENDO: -insulin subq HEME: -No concerns of anemia at this time ID: -No obvious source of infection, though concern for sepsis with severe hypotension requiring pressors -COVID-19 negative, Respiratory Biofire negative, Urine negative -Lactate elevated at 3.4, 1.5 on repeat, likely secondary to hypotension as noted prior vs infection -Will start with empiric Rocephin 1g QD -Initial procal negative, will order repeat for tonight -- repeat elevated at 2.32, now decreasing 1.89 -If continuing concerns for infection, may increase coverage from Rocephin to Cefepime/Levaquin, but otherwise will allow for empiric coverage with Rocephin and DC after 3 days LINES/IV ACCESS: L arm art, peripherals CODE STATUS: Full DVT PROPHYLAXIS: Heparin gtt - transition to sq after drip completed Thank you for allowing us to participate in the care of this patient. Please refer to my attending physician's documentation for any further recommendations. (2) NOLBERTO (acute kidney injury): (3) History of tobacco use disorder: (4) Acute metabolic encephalopathy: (5) Chronic respiratory failure with hypoxia and hypercapnia: (6) Systolic congestive heart failure with reduced left ventricular function, N YHA class 2: (7) Ischemic heart disease: (8) Acute on chronic respiratory failure with hypoxia and hypercapnia: (9) Acute respiratory acidosis: Admission and Anticipated Discharge Date Admission Date: January 22, 2020 Supervising Physician Co-Signing Physician Notes Dr. Quach was resident physician during care of patient. I separately evaluated patient for obrien portions of the history and the exam. I was present during the critical portion of medical decision making, and I discussed the case with the resident. I generally agree with the findings and plan. Patient's ventilatory settings were largely minimal and we were able to successfully liberate the patient from the ventilator. Continue heparin for 24 hours, I believe the elevated troponins are secondary to the profound acidosis and severe end-stage COPD condition this patient was in and not indicative of true ischemia. Subjective Patient examined this AM while still intubated on SBT. Patient unable to speak, but able to respond with head nods and writing on a piece of paper. Patient denied that he was having any pain. He did write down on a piece of paper that his symptoms had worsened due to him running out of his medications (did not specify a time frame) and that he has not been able to afford them to continue taking them. Review of Systems Review of Systems: Unobtainable due to endotracheal tube Patient does deny any pain with head nods Physical Exam Constitutional: + ill appearing Eyes: PERRL, conjunctivae normal, anicteric sclerae ENMT: Endotracheal tube in place Respiratory: normal respiratory effort Auscultation: + diminished lung sounds (bilateral ) and + wheezes (throughout ) Cardiovascular: Rate/Rhythm: regular rate and regular rhythm Heart Sounds: no murmur Gastrointestinal (Abdomen): normal bowel sounds, soft, nontender, no hepatosplenomegaly Neurologic: Cranial Nerves: PERRL, EOM intact bilaterally and normal hearing Results & Data Results & Data ([facility]) Vital Signs (Past 12 Hours) Vital Signs Temp Pulse Pulse Resp BP Pulse Ox 01/23/20 05:01 78 97 01/23/20 04:59 78 89/61 L 96 01/23/20 03:59 37.1 C 79 90/64 L 97 01/23/20 03:10 76 24 97 01/23/20 02:59 76 95/67 L 98 01/23/20 02:01 78 97 01/23/20 01:59 77 89/64 L 97 01/23/20 01:56 80 24 96 01/23/20 01:08 79 96 01/23/20 01:07 84 109/88 96 01/23/20 00:30 36.9 C 77 96 01/23/20 00:00 36.9 C 79 96 01/22/20 23:59 36.9 C 78 97/72 L 97 01/22/20 23:47 78 01/22/20 23:30 36.9 C 78 96 01/22/20 23:28 36.9 C 78 110/69 96 01/22/20 23:17 77 24 98 01/22/20 23:00 36.8 C 77 99 01/22/20 22:58 36.8 C 77 102/73 99 01/22/20 22:30 36.7 C 76 99 01/22/20 22:28 36.7 C 77 103/75 99 01/22/20 22:00 36.7 C 79 99 01/22/20 21:58 36.7 C 78 107/79 99 01/22/20 21:30 36.7 C 81 97 01/22/20 21:28 36.7 C 81 101/75 97 01/22/20 21:00 36.7 C 80 97 01/22/20 20:58 36.7 C 81 108/83 97 01/22/20 20:35 80 01/22/20 20:28 36.7 C 84 108/74 97 01/22/20 20:14 89 24 98 01/22/20 20:00 36.8 C 85 92 01/22/20 19:58 36.8 C 85 107/83 91 01/22/20 19:28 36.6 C 89 103/72 100 01/22/20 19:00 36.5 C 89 100 01/22/20 18:59 36.5 C 88 105/80 100 01/22/20 18:28 36.4 C L 87 106/77 99 01/22/20 18:00 36.3 C L 86 99 01/22/20 17:58 36.3 C L 89 99/72 L 99 Critical Care Time Critical Care Time: Yes Total Critical Care Time: 40 I have personally spent 40 minutes of critical care time in the direct management of this patient. This is a life/limb threatening event. This includ es time spent evaluating patient, direct bedside care, chart review, placing orders, interpretation of diagnostic studies, discussion with consultants, patient, and/or family members regarding treatment decisions, as well as other required patient management activities. This time is exclusive of all separately billable procedures, and teaching time and separate from and in addition to any other critical care service time. Resident Activity Tracking Resident Involvement: Resident Care Provided Care Provided: Adult Hospital Medicine
[2020-01-23 06:03] LABS: Basophils # (auto) 0.01 K/uL (0-0.2); Basophils % (auto) 0.1 %; Eosinophils # (auto) 0.01 K/uL (0-0.5); Eosinophils % (auto) 0.1 %; Hematocrit (blood only) 38.1 % (42-52); Hemoglobin 12.5 g/dL (14.0-18.0); Immature Granulocytes # (auto) 0.09 K/uL (0.00-0.02); Immature Granulocytes % (auto) 0.6 %; Lymphocytes # (auto) 2.05 K/uL (1.2-3.4); Lymphocytes % (auto) 13.3 %; Mean Corpuscular Hemoglobin 31.1 pg (25-34); Mean Corpuscular Hgb Conc 32.8 g/dL (32-36); Mean Corpuscular Volume 94.8 fL (80-100); Mean Platelet Volume 9.5 fL (7.4-10.4); Monocytes # (auto) 2.09 K/uL (0.11-0.59); Monocytes % (auto) 13.5 %; Neutrophils # (auto) 11.19 K/uL (1.4-6.5); Neutrophils % (auto) 72.4 %; Platelet Count 229 K/uL (130-400); RDW Coefficient of Variation 14.2 % (11.5-14.5); RDW Standard Deviation 48.9 fL (36.4-46.3); Red Blood Count 4.02 M/uL (4.7-6.1); White Blood Count 15.44 K/uL (4.8-10.8)
[2020-01-23 06:04] LABS: iSTAT Arterial Blood Gas HCO3 26 meg/L (19-24); iSTAT Arterial Blood Gas pCO2 48 mmHg (35-46); iSTAT Arterial Blood Gas pH 7.35 (7.35-7.45); iSTAT Arterial Blood Gas pO2 81 mmHg (80-95); iSTAT Carbon Dioxide 28 mmol/L (24-31); iSTAT FiO2 28 %; iSTAT Site Art Line
[2020-01-23 06:15] LABS: Partial Thromboplastin Ratio 4.2
[2020-01-23 06:25] LABS: Partial Thromboplastin Time 117.3 Seconds (21.0-31.0)
[2020-01-23 06:31] LABS: BUN Creatinine Ratio 22.2 (10-20); Calcium 8.3 mg/dl (8.5-10.1); Creatinine Clr Calc Pharmacy 74.5 ml/min; Est GFR (African American) 67.8; Est GFR (Non-African American) 58.5; Magnesium 2.3 mg/dl (1.8-2.4); Potassium 4.3 mmol/L (3.5-5.1)
[2020-01-23] MEDS: ROFLUMILAST 500 MCG TAB PO SCH (06:31)
[2020-01-23 06:52] LABS: Troponin I 3.89 ng/ml (0-0.045)
[2020-01-23 07:04] LABS: Estimated Average Glucose 123 mg/dl; Hemoglobin A1C 5.9 % (4.5-5.6)
[2020-01-23] MEDS: fentaNYL DRIP 1,250 MCG/250 ML BAG IV SCH (07:14)
[2020-01-23] MEDS: HEPARIN SODIUM/DEXTROSE 25,000 UNITS/500 ML BAG IV SCH (07:23)
[2020-01-23] MEDS: ROSUVASTATIN CALCIUM 20 MG TAB PO SCH (07:24)
[2020-01-23] MEDS: CLOPIDOGREL BISULFATE 75 MG TAB PO SCH (07:24)
[2020-01-23] MEDS: ESCITALOPRAM OXALATE 20 MG TAB PO SCH (07:25)
[2020-01-23] MEDS: METOPROLOL SUCC 25MG EXT REL TAB PO SCH (07:25)
[2020-01-23] MEDS: CHOLECALCIFEROL 1,000 UNITS 25 MCG TAB PO SCH (07:25)
[2020-01-23] MEDS: ASPIRIN 81 MG ECTAB PO SCH ×2 (07:25→10:20)
[2020-01-23] MEDS ORDERED: ALBUT/IPRATROP 3MG/0.5MG NEB 3 ML VIAL INH PRN (08:01)
--- NOTE | 2020-01-23 08:58 | XRay Report ---
XR chest 1V portable CLINICAL HISTORY: Shortness of breath. Respiratory failure. COMPARISON STUDY: January 22, 2020 FINDINGS: r there is an endotracheal tube 5 cm above the holly. There is radiographic evidence of em physema. There is no focal pulmonary consolidation. Left basilar densities while nonspecific are like ly atelectatic.[There is a nasogastric tube which passes into the stomach. IMPRESSION: 1. Pulmonary emphysema 2. Mild left basilar atelectasis 3. Endotracheal tube 5 cm above the holly ACT 112: Negative or not required by law. Electronically signed by: Kyle Liang M.D. 01/23/2020 8:57 AM
[2020-01-23] MEDS: FLUTICASONE/VILANTEROL 200/25MCG 14 PUFFS/INHALER INH SCH (10:19)
[2020-01-23] MEDS: UMECLIDINIUM BROMIDE 62.5MCG/BLISTER 7 PUFFS/INHALER INH SCH (10:20)
[2020-01-23] MEDS: buPROPion XL 300 MG TABCR PO SCH (10:21)
[2020-01-23] MEDS: FUROSEMIDE 40 MG TAB PO SCH (10:21)
[2020-01-23] MEDS: CARBOHYDRATES FOR HYPOGLYCEMIA PO PRN ×2 (10:31→10:48)
[2020-01-23] MEDS ORDERED: ALBUT/IPRATROP 3MG/0.5MG NEB 3 ML VIAL NEB STA (10:40)
[2020-01-23] MEDS: ENOXAPARIN INJ 40 MG/0.4 ML SYR SQ SCH (14:50)
--- NOTE | 2020-01-23 15:08 | Pharmacy Report ---
Pharmacy Glycemic Short Note 2 - Date of Service January 23, 2020 - Glycemic Short BSG Results (Last 24 hours): 01/22/20 01/22/20 01/22/20 16:09 19:52 23:58 Glucose POC Glucose 157 H POC Glucose (other) 203 H 162 H 01/23/20 01/23/20 01/23/20 04:11 05:40 10:26 Glucose 85 POC Glucose 53 L* POC Glucose (other) 89 01/23/20 01/23/20 01/23/20 10:28 10:46 11:03 Glucose POC Glucose 61 L* 63 L* 71 POC Glucose (other) 01/23/20 14:42 Glucose POC Glucose 73 POC Glucose (other) OUTPATIENT ANTIDIABETIC REGIMEN: * N/A * A1c = 5.9% (01/23/20) ASSESSMENT: 01/22: * Oliver received 22 units of insulin since the time of consultation * He has been weaned off pressors and is now extubated. * A1c of 5.9% indicated pre-diabetes. With dramatic decrease in risk factors for stress induced hyperglycemia, patient may require little to no insulin. * Hypoglycemia ~1030 this morning. * Patient received a one time dose of Lantus last evening - no further basal insulin will be given * Loosen Novolog correction factor and change to q6h checks. 01/21: * Patient admitted to ICU with acute on chronic resp failure, severe COPD * He is now intubated, sedated and requiring pressors - multiple risk factors for stress induced hyperglycemia. * He initially was hyperglycemic on presentation however his last 2 BSGs 130- 140s range. He has no prior dx of DM and last A1c was consistent w/ "pre- diabetes". Will check A1c with next lab draw to determine if glycemic control has deteriorated. * Currently there are no steroids ordered. PLAN FOR INPATIENT GLYCEMIC CONTROL: * Bolus insulin * NovoLog per scale Q 6 hrs * Goal Range: Low 110 mg/dL - High 140 mg/dL * Correction Factor: 40 mg/dL/unit * Nutritional / Prandial insulin: None at this time PLAN FOR DISCHARGE: * to be determined
[2020-01-23] MEDS ORDERED: FUROSEMIDE 40 MG in SYRINGE 0 ML IV ONE (15:30)
[2020-01-23] MEDS ORDERED: HEPARIN: STOP ORDER ONE (16:00)
[2020-01-23] MEDS: cefTRIAXone SODIUM 2,000 MG in DEXTROSE 5% 50 ML IV SCH (16:40)
--- NOTE | 2020-01-23 17:26 | Hospitalist Progress Note ---
Date of Service January 23, 2020 Assessment & Plan (1) Acute on chronic respiratory failure with hypoxia and hypercapnia: due to CPD exacerbation required mechainical vent/intubation appreciate input from Pulm /critical care extubated today respirtory status remains stable (2) Stage 4 very severe COPD by GOLD classification: (3) Systolic congestive heart failure with reduced left ventricular function, NYHA class 2: (4) Acute metabolic encephalopathy: due to hypoxia , resp failure mental status improved to baseline awake and alert , oriented to place and person conversing apporopriately (5) NOLBERTO (acute kidney injury): (6) History of tobacco use disorder: Admission and Anticipated Discharge Date Admission Date: January 22, 2020 Subjective extubated earlier today doing well no complain of chest pain or SOB no cough or fever or chills Review of Systems Review of Systems: All systems reviewed & are unremarkable except as noted in HPI & below Physical Exam Constitutional: WD/WN, vitals as above + ill appearing Eyes: PERRL, conjunctivae normal, anicteric sclerae ENMT: external ear and nose normal, oropharynx normal Neck: trachea midline, no thyromegaly Respiratory: normal respiratory effort and + cough; no respiratory distress Auscultation: + crackles and + wheezes Cardiovascular: Rate/Rhythm: regular rate and regular rhythm Gastrointestinal (Abdomen): Percussion/Palpation: abdomen soft; abdomen nontender Neurologic: PERRL, EOMI, accommodation nl, no face palsy, no dysarthria Psychiatric: A+Ox3, euthymic affect Results & Data Results & Data ([facility]) Vital Signs (Past 12 Hours) Vital Signs Temp Pulse Pulse Resp BP Pulse Ox 01/23/20 15:10 86 18 96 01/23/20 13:59 80 18 91/66 L 97 01/23/20 12:59 82 18 94/61 L 98 01/23/20 12:01 84 23 97 01/23/20 11:59 87 18 107/73 100 01/23/20 11:13 36.5 C 01/23/20 11:00 88 21 98/76 L 96 01/23/20 10:53 82 20 97 01/23/20 09:59 72 17 90/68 L 93 01/23/20 08:59 77 22 91/68 L 97 01/23/20 08:01 82 21 97 10/03/20 08:00 36.8 C 82 19 104/70 100 01/23/20 07:01 75 92 01/23/20 06:00 80 85/63 L 91 01/23/20 05:40 85 18 96 01/23/20 05:30 82 96
[2020-01-23] MEDS ORDERED: LORazepam 0.5 MG/1 ML VIAL IV STA ×2 (19:02→19:21)
[2020-01-23] MEDS ORDERED: STAT IV Infusion **Titration per Protocol STA (19:27)
[2020-01-23] MEDS ORDERED: RAPID SEQUENCE INDUCTION BAG ONE (19:27)
[2020-01-23] MEDS: DEXMEDETOMIDINE HCL 200 MCG in SODIUM CHLORIDE 0.9% 48 ML IV SCH (19:42)
[2020-01-23] MEDS ORDERED: methylPREDNISolone 40 MG in SYRINGE 0 ML IV ONE (19:45)
--- NOTE | 2020-01-23 19:58 | Communication Note ---
Date of Service: January 23, 2020 1900: Upon arrival for my shift, the patient was noted to be increasingly tachypneic with poor lung sounds including poor air movement and diffuse wheezin g. Patient was actively receiving DuoNeb treatment. Initially offer the patient BiPAP which she declined secondary to anxiety. Patient was ordered doses of IV Ativan. Upon assessment at bedside, the patient was increasingly agitated secondary to his respiratory distress. Spent a lengthy amount of time with the patient explaining the utility of nebulizer therapy in addition to BiPAP. Multiple times, he declined BiPAP until he was "less anxious." Orders were placed for initiation of Precedex drip. Explained to the patient that if his condition is not improving in the next several minutes and/or if he is unwilling to utilize BiPAP for current COPD exacerbation, we would need to proceed with emergent endotracheal intubation as I am concerned for rapid clinical deterioration. Airway equipment was set up at bedside as was glide scope. Patient eventually agreed to BiPAP. He was placed on settings of 12/5 and 45%. Patient reports that he was feeling better with his breathing. Clin ically, the patient was moving more air at this time. Additional orders were placed for Solu-Medrol 40 mg IV. Patient's heart rate and tachypnea did both improve. Eventually, patient was able to relax in bed and was placed in a supine position. His blood pressure remained hemodynamically stable throughout this event. He maintained well throughout. Blood gas demonstrated relatively normal findings in his clinical setting. I do believe that a large degree of this is related to the anxiety with difficulty breathing, however certainly, the patient did have poor air movement and was likely experiencing an acute on chronic COPD exacerbation. Patient will remain on BiPAP as long as tolerated. We will add scheduled Solu-Medrol as the patient reportedly had taken 10 mg of prednisone daily prior to hospitalization, however he had not taken it for the last several days. Additionally, orders were placed for chest PT and communication was had with respiratory therapy regarding need for aggressive pulmonary toilet. We will continue to monitor the patient with low threshold for intubation if symptoms return. I have personally spent 45 minutes of critical care time in the direct manage ment of this patient. This is a life/limb threatening event. This includes time spent evaluating patient, direct bedside care, chart review, placing orders, interpretation of diagnostic studies, discussion with consultants, patient, and family members, as well as other required patient management activities. This time is exclusive of all separately billable procedures, and teaching time and separate from and in addition to any other critical care service time. Coding Level of Care Code Critical Care sanju singletont'l 30 min Time Spent (min) 45
[2020-01-23 20:01] LABS: iSTAT Arterial Blood Gas HCO3 30 meg/L (19-24); iSTAT Arterial Blood Gas pCO2 56 mmHg (35-46); iSTAT Arterial Blood Gas pH 7.34 (7.35-7.45); iSTAT Arterial Blood Gas pO2 242 mmHg (80-95); iSTAT Carbon Dioxide 32 mmol/L (24-31); iSTAT FiO2 60 %; iSTAT Site Art Line
[2020-01-23] MEDS ORDERED: ALBUT/IPRATROP 3MG/0.5MG NEB 3 ML VIAL NEB ONE (20:03)
[2020-01-23] MEDS ORDERED: methylPREDNISolone 40 MG in SYRINGE 0 ML IV SCH (23:00)
[2020-01-24] MEDS: INSULIN ASPART 100 UNITS/ML 3 ML PEN SC SCH ×6 (00:31→20:19)
[2020-01-24] MEDS: DEXMEDETOMIDINE HCL 200 MCG in SODIUM CHLORIDE 0.9% 48 ML IV SCH (02:48)
[2020-01-24] MEDS: ALBUT/IPRATROP 3MG/0.5MG NEB 3 ML VIAL NEB PRN ×6 (03:18→23:19)
[2020-01-24 04:47] LABS: Hematocrit (blood only) 35.9 % (42-52); Immature Granulocytes # (auto) 0.02 K/uL (0.00-0.02); Immature Granulocytes % (auto) 0.2 %; Lymphocytes # (auto) 0.85 K/uL (1.2-3.4); Lymphocytes % (auto) 7.5 %; Mean Corpuscular Hemoglobin 31.2 pg (25-34); Mean Corpuscular Hgb Conc 33.4 g/dL (32-36); Mean Corpuscular Volume 93.2 fL (80-100); Mean Platelet Volume 9.2 fL (7.4-10.4); Monocytes # (auto) 0.74 K/uL (0.11-0.59); Monocytes % (auto) 6.5 %; Neutrophils # (auto) 9.69 K/uL (1.4-6.5); Neutrophils % (auto) 85.8 %; Platelet Count 222 K/uL (130-400); RDW Coefficient of Variation 14.3 % (11.5-14.5); RDW Standard Deviation 48.3 fL (36.4-46.3); Red Blood Count 3.85 M/uL (4.7-6.1)
[2020-01-24] MEDS: methylPREDNISolone 40 MG in SYRINGE 0 ML IV SCH ×3 (04:50→19:48)
[2020-01-24 05:05] LABS: BUN Creatinine Ratio 24.1 (10-20); Creatinine Clr Calc Pharmacy 86.2 ml/min; Est GFR (African American) 80.9; Est GFR (Non-African American) 69.8; Magnesium 2.1 mg/dl (1.8-2.4); Phosphorus 3.8 mg/dl (2.5-4.9); Potassium 4.1 mmol/L (3.5-5.1)
[2020-01-24 05:41] LABS: iSTAT Arterial Blood Gas HCO3 29 meg/L (19-24); iSTAT Arterial Blood Gas pCO2 42 mmHg (35-46); iSTAT Arterial Blood Gas pH 7.45 (7.35-7.45); iSTAT Arterial Blood Gas pO2 69 mmHg (80-95); iSTAT Carbon Dioxide 30 mmol/L (24-31); iSTAT Site Art Line
[2020-01-24] MEDS ORDERED: Nursing to Pharmacy Communication SCH (07:30)
[2020-01-24] MEDS: FLUTICASONE/VILANTEROL 200/25MCG 14 PUFFS/INHALER INH SCH (07:46)
[2020-01-24] MEDS: ESCITALOPRAM OXALATE 20 MG TAB PO SCH (07:49)
[2020-01-24] MEDS: FUROSEMIDE 40 MG TAB PO SCH (07:49)
[2020-01-24] MEDS: ROFLUMILAST 500 MCG TAB PO SCH (07:49)
[2020-01-24] MEDS: buPROPion XL 300 MG TABCR PO SCH (07:49)
[2020-01-24] MEDS: CHOLECALCIFEROL 1,000 UNITS 25 MCG TAB PO SCH (07:50)
[2020-01-24] MEDS: ROSUVASTATIN CALCIUM 20 MG TAB PO SCH (07:50)
[2020-01-24] MEDS: CLOPIDOGREL BISULFATE 75 MG TAB PO SCH (07:50)
[2020-01-24] MEDS: ASPIRIN 81 MG ECTAB PO SCH (07:50)
[2020-01-24] MEDS: METOPROLOL SUCC 25MG EXT REL TAB PO SCH (07:50)
--- NOTE | 2020-01-24 08:00 | Billing Data ---
Date of Service January 23, 2020 Coding Level of Care Code Critical Care 1st - mins
--- NOTE | 2020-01-24 08:05 | Critical Care Progress Note ---
Date of Service January 24, 2020 Assessment & Plan (1) Stage 4 very severe COPD by GOLD classification: NEURO: CAM ICU: Negative -Wean off Precedex would consider reinitiation if unable to tolerate noninvasive mechanical ventilation should that be required CARDIAC: -Patient with known poor cardiac function with EF 25% -EKG after stabilization showing normal sinus rhythm with PAC's, but no acute ST elevations -Had unremarkable cath in July, but due to elevated troponins will start with H eparin gtt -troponins downtrending -Continue ASA -Continue Plavix -Continue Toprol -Continue Rosuvastatin -Restarting home lisinopril RESPIRATORY: -Acute on chronic hypoxic respiratory failure -2 L O2 at baseline -Liberated from ventilator yesterday GI: -Heart healthy diet RENAL/LYTES: -Acute kidney injury resolved : -Discontinue Rand ENDO: -insulin sliding scale -Given overnight exacerbation we will continue 40 mg Solu-Medrol every 8 at this time HEME: -Anemia -Likely secondary to chronic disease and then acute blood loss anemia secondary to frequent phlebotomy ID: -COVID-19 negative, Respiratory Biofire negative, Urine negative -Transition to oral Augmentin for total of 7 days effective duration for empiric antibiotics given gold stage IV -Avoiding macrolide and fluoroquinolone secondary to prolonged QTC LINES/IV ACCESS: Discontinue arterial line today CODE STATUS: Full DVT PROPHYLAXIS: Finish 24-hour heparin infusion on Lovenox Activity: Ambulate every shift Disposition: Stable for downgrade to PCU (2) NOLBERTO (acute kidney injury): (3) History of tobacco use disorder: (4) Acute metabolic encephalopathy: (5) Chronic respiratory failure with hypoxia and hypercapnia: (6) Systolic congestive heart failure with reduced left ventricular function, NYHA class 2: (7) Ischemic heart disease: (8) Acute on chronic respiratory failure with hypoxia and hypercapnia: (9) Acute respiratory acidosis: Admission and Anticipated Discharge Date Admission Date: January 22, 2020 Subjective Speaking in full sentences, baseline dyspnea. Chest pain when coughing Review of Systems Review of Systems: All systems reviewed & are unremarkable except as noted in Subjective Physical Exam Physical Exam: General: Alert. nontoxic. Skin: Warm, dry, Head: Atraumatic Ears, nose, mouth and throat: airway patent Cardiovascular: Normal peripheral perfusion Respiratory: no respiratory distress, prolonged I-E ratio Gastrointestinal: Non distended Musculoskeletal: Mild clubbing of fingers Results & Data Results & Data ([facility]) Vital Signs (Past 12 Hours) Vital Signs Temp Pulse Pulse Pulse Resp BP Pulse Ox 01/24/20 07:31 81 18 96 01/24/20 07:00 84 24 102/74 96 01/24/20 05:59 36.5 C 78 21 107/77 97 01/24/20 05:00 82 20 92/67 L 95 01/24/20 04:00 77 100/67 01/24/20 03:59 36.5 C 81 19 116/59 L 95 01/24/20 03:18 78 20 92 01/24/20 03:00 83 24 92/69 L 92 01/24/20 01:59 36.5 C 81 23 106/72 91 01/24/20 00:59 82 23 106/64 93 01/24/20 00:00 84 106/72 01/23/20 23:59 36.5 C 83 23 89/63 L 91 01/23/20 23:15 85 22 93 01/23/20 22:59 85 23 111/78 85 L 01/23/20 21:59 87 18 102/76 01/23/20 20:59 102 H 31 H 102/75 95 Laboratory Results 01/24/20 01/24/20 01/24/20 Range/Units 06:27 05:56 05:27 WBC (4.8-10.8) K/uL RBC (4.7-6.1) M/uL Hgb (14.0-18.0) g/dL Hct (42-52) % MCV (80-100) fL MCH (25-34) pg MCHC (32-36) g/dL RDW Std Deviation (36.4-46.3) fL RDW Coeff of Nevin (11.5-14.5) % Plt Count (130-400) K/uL MPV (7.4-10.4) fL Immature Gran % (Auto) % Neut % (Auto) % Lymph % (Auto) % [place] % (Auto) % Eos % (Auto) % Baso % (Auto) % Neut # (Auto) (1.4-6.5) K/uL Lymph # (Auto) (1.2-3.4) K/uL [place] # (Auto) (0.11-0.59) K/uL Eos # (Auto) (0-0.5) K/uL Baso # (Auto) (0-0.2) K/uL Immature Gran # (Auto) (0.00-0.02) K/uL Sample Site Art Line POC pH 7.45 (7.35-7.45) POC pCO2 42 (35-46) mmHg POC pO2 69 L (80-95) mmHg POC HCO3 29 H (19-24) beatrice/L POC Total CO2 30 (24-31) mmol/L POC Base Excess 5.0 H (-9-1.8) beatrice/L POC ABG O2 Sat 94.0 (90-95) % Herman Test NA O2 Delivery Device BIPAP POC O2 Rate POC FiO2 % IPAP Sodium (136-145) mmol/L Potassium (3.5-5.1) mmol/L Chloride (98-107) mmol/L Carbon Dioxide (21-32) mmol/L Anion Gap (3-11) BUN (7-18) mg/dl Creatinine (0.6-1.4) mg/dl Est Cr Clr Drug Dosing ml/min Est GFR ( Amer) Est GFR (Non-Af Amer) BUN/Creatinine Ratio (10-20) Glucose (70-99) mg/dl POC Glucose 177 H (70-99) mg/dl Calcium (8.5-10.1) mg/dl Phosphorus (2.5-4.9) mg/dl Magnesium (1.8-2.4) mg/dl Troponin I 3.270 H* (0-0.045) ng/ml 01/24/20 01/24/20 01/24/20 Range/Units 04:39 04:39 00:24 WBC 11.30 H (4.8-10.8) K/uL RBC 3.85 L (4.7-6.1) M/uL Hgb 12.0 L (14.0-18.0) g/dL Hct 35.9 L (42-52) % MCV 93.2 (80-100) fL MCH 31.2 (25-34) pg MCHC 33.4 (32-36) g/dL RDW Std Deviation 48.3 H (36.4-46.3) fL RDW Coeff of Nevin 14.3 (11.5-14.5) % Plt Count 222 (130-400) K/uL MPV 9.2 (7.4-10.4) fL Immature Gran % (Auto) 0.2 % Neut % (Auto) 85.8 % Lymph % (Auto) 7.5 % [place] % (Auto) 6.5 % Eos % (Auto) 0.0 % Baso % (Auto) 0.0 % Neut # (Auto) 9.69 H (1.4-6.5) K/uL Lymph # (Auto) 0.85 L (1.2-3.4) K/uL [place] # (Auto) 0.74 H (0.11-0.59) K/uL Eos # (Auto) 0.00 (0-0.5) K/uL Baso # (Auto) 0.00 (0-0.2) K/uL Immature Gran # (Auto) 0.02 (0.00-0.02) K/uL Sample Site POC pH (7.35-7.45) POC pCO2 (35-46) mmHg POC pO2 (80-95) mmHg POC HCO3 (19-24) beatrice/L POC Total CO2 (24-31) mmol/L POC Base Excess (-9-1.8) beatrice/L POC ABG O2 Sat (90-95) % Herman Test O2 Delivery Device POC O2 Rate POC FiO2 % IPAP Sodium 135 L (136-145) mmol/L Potassium 4.1 (3.5-5.1) mmol/L Chloride 100 (98-107) mmol/L Carbon Dioxide 30 (21-32) mmol/L Anion Gap 5.0 (3-11) BUN 28 H (7-18) mg/dl Creatinine 1.15 (0.6-1.4) mg/dl Est Cr Clr Drug Dosing 86.2 ml/min Est GFR ( Amer) 80.9 Est GFR (Non-Af Amer) 69.8 BUN/Creatinine Ratio 24.1 H (10-20) Glucose 167 H (70-99) mg/dl POC Glucose 154 H (70-99) mg/dl Calcium 8.0 L (8.5-10.1) mg/dl Phosphorus 3.8 (2.5-4.9) mg/dl Magnesium 2.1 (1.8-2.4) mg/dl Troponin I (0-0.045) ng/ml 01/23/20 01/23/20 01/23/20 Range/Units 19:48 14:42 11:03 WBC (4.8-10.8) K/uL RBC (4.7-6.1) M/uL Hgb (14.0-18.0) g/dL Hct (42-52) % MCV (80-100) fL MCH (25-34) pg MCHC (32-36) g/dL RDW Std Deviation (36.4-46.3) fL RDW Coeff of Nevin (11.5-14.5) % Plt Count (130-400) K/uL MPV (7.4-10.4) fL Immature Gran % (Auto) % Neut % (Auto) % Lymph % (Auto) % [place] % (Auto) % Eos % (Auto) % Baso % (Auto) % Neut # (Auto) (1.4-6.5) K/uL Lymph # (Auto) (1.2-3.4) K/uL [place] # (Auto) (0.11-0.59) K/uL Eos # (Auto) (0-0.5) K/uL Baso # (Auto) (0-0.2) K/uL Immature Gran # (Auto) (0.00-0.02) K/uL Sample Site Art Line POC pH 7.34 L (7.35-7.45) POC pCO2 56 H (35-46) mmHg POC pO2 242 H (80-95) mmHg POC HCO3 30 H (19-24) beatrice/L POC Total CO2 32 H (24-31) mmol/L POC Base Excess 5.0 H (-9-1.8) beatrice/L POC ABG O2 Sat 100.0 H (90-95) % Herman Test NA O2 Delivery Device BIPAP POC O2 Rate 25 POC FiO2 60 % IPAP 15 Sodium (136-145) mmol/L Potassium (3.5-5.1) mmol/L Chloride (98-107) mmol/L Carbon Dioxide (21-32) mmol/L Anion Gap (3-11) BUN (7-18) mg/dl Creatinine (0.6-1.4) mg/dl Est Cr Clr Drug Dosing ml/min Est GFR ( Amer) Est GFR (Non-Af Amer) BUN/Creatinine Ratio (10-20) Glucose (70-99) mg/dl POC Glucose 73 71 (70-99) mg/dl Calcium (8.5-10.1) mg/dl Phosphorus (2.5-4.9) mg/dl Magnesium (1.8-2.4) mg/dl Troponin I (0-0.045) ng/ml 01/23/20 01/23/20 01/23/20 Range/Units 10:46 10:28 10:26 WBC (4.8-10.8) K/uL RBC (4.7-6.1) M/uL Hgb (14.0-18.0) g/dL Hct (42-52) % MCV (80-100) fL MCH (25-34) pg MCHC (32-36) g/dL RDW Std Deviation (36.4-46.3) fL RDW Coeff of Nevin (11.5-14.5) % Plt Count (130-400) K/uL MPV (7.4-10.4) fL Immature Gran % (Auto) % Neut % (Auto) % Lymph % (Auto) % [place] % (Auto) % Eos % (Auto) % Baso % (Auto) % Neut # (Auto) (1.4-6.5) K/uL Lymph # (Auto) (1.2-3.4) K/uL [place] # (Auto) (0.11-0.59) K/uL Eos # (Auto) (0-0.5) K/uL Baso # (Auto) (0-0.2) K/uL Immature Gran # (Auto) (0.00-0.02) K/uL Sample Site POC pH (7.35-7.45) POC pCO2 (35-46) mmHg POC pO2 (80-95) mmHg POC HCO3 (19-24) beatrice/L POC Total CO2 (24-31) mmol/L POC Base Excess (-9-1.8) beatrice/L POC ABG O2 Sat (90-95) % Herman Test O2 Delivery Device POC O2 Rate POC FiO2 % IPAP Sodium (136-145) mmol/L Potassium (3.5-5.1) mmol/L Chloride (98-107) mmol/L Carbon Dioxide (21-32) mmol/L Anion Gap (3-11) BUN (7-18) mg/dl Creatinine (0.6-1.4) mg/dl Est Cr Clr Drug Dosing ml/min Est GFR ( Amer) Est GFR (Non-Af Amer) BUN/Creatinine Ratio (10-20) Glucose (70-99) mg/dl POC Glucose 63 L* 61 L* 53 L* (70-99) mg/dl Calcium (8.5-10.1) mg/dl Phosphorus (2.5-4.9) mg/dl Magnesium (1.8-2.4) mg/dl Troponin I (0-0.045) ng/ml Coding Level of Care Code 93778 Subseq Hosp Care Lvl 3 Diagnoses Stage 4 very severe COPD by GOLD classification J44.9 NOLBERTO (acute kidney injury) N17.9 History of tobacco use disorder Z87.891 Acute metabolic encephalopathy G93.41 Chronic respiratory failure with hypoxia and hypercapnia J96.11; J96.12 Systolic congestive heart failure with reduced left ventricular function, NYHA class 2 I50.20 Ischemic heart disease I25.9 Acute on chronic respiratory failure with hypoxia and hypercapnia J96.21; J96.22 Acute respiratory acidosis E87.2
--- NOTE | 2020-01-24 08:57 | XRay Report ---
XR chest 1V portable HISTORY: Shortness of breath. COMPARISON: Chest 01/23/2020. FINDINGS: No pneumothorax. The heart remains mildly enlarged. No evidence for pulmonary edema. Emphys marilyn. Levoscoliosis of the thoracic spine. Patchy bibasilar densities persist. The endotracheal tube i s been removed. IMPRESSION: 1. Status post extubation. 2. Patchy bibasilar densities persist. This favors a pneumonia and could be secondary to aspiration. ACT 112: Negative or not required by law. Electronically signed by: Orestes Childress M.D. 01/24/2020 8:56 AM
--- NOTE | 2020-01-24 09:53 | Electrocardiogram Report ---
Test Reason : Blood Pressure : / mmHG Vent. Rate : 076 BPM Atrial Rate : 076 BPM P-R Int : 166 ms QRS Dur : 078 ms QT Int : 442 ms P-R-T Axes : 065 036 260 degrees QTc Int : 497 ms Sinus rhythm with Premature atrial complexes Low voltage QRS Abnormal ECG When compared with ECG of 22-JAN-2020 15:39, Inverted T waves have replaced nonspecific T wave abnormality in Inferior leads T wave inversion now evident in Anterolateral leads QT has lengthened Confirmed by Norman Hyde ([id number]) on 01/24/2020 9:52:56 AM Referred By: REFERRED SELF Confirmed By:William Hyde
[2020-01-24] MEDS: UMECLIDINIUM BROMIDE 62.5MCG/BLISTER 7 PUFFS/INHALER INH SCH (11:33)
--- NOTE | 2020-01-24 14:22 | Pharmacy Report ---
Pharmacy Glycemic Short Note 2 - Date of Service January 24, 2020 - Glycemic Short BSG Results (Last 24 hours): 01/23/20 01/24/20 01/24/20 14:42 00:24 04:39 Glucose 167 H POC Glucose 73 154 H 01/24/20 01/24/20 05:56 11:30 Glucose POC Glucose 177 H 146 H OUTPATIENT ANTIDIABETIC REGIMEN: * N/A * A1c = 5.9% (01/23/20) ASSESSMENT: 01/23: * Oliver received 1 unit of Novolog yesterday with majority of BSGs below goal * He was started on an oral diet and high dose steroids this morning (solu medrol 40 mg IV q8) * Thus far, steroids have not contributed to significant hyperglycemia. I will add a conservative carb ratio to regimen and add overnight checks. 01/22: * Oliver received 22 units of insulin since the time of consultation * He has been weaned off pressors and is now extubated. * A1c of 5.9% indicated pre-diabetes. With dramatic decrease in risk factors for stress induced hyperglycemia, patient may require little to no insulin. * Hypoglycemia ~1030 this morning. * Patient received a one time dose of Lantus last evening - no further basal insulin will be given * Loosen Novolog correction factor and change to q6h checks. 01/21: * Patient admitted to ICU with acute on chronic resp failure, severe COPD * He is now intubated, sedated and requiring pressors - multiple risk factors for stress induced hyperglycemia. * He initially was hyperglycemic on presentation however his last 2 BSGs 130- 140s range. He has no prior dx of DM and last A1c was consistent w/ "pre- diabetes". Will check A1c with next lab draw to determine if glycemic control has deteriorated. * Currently there are no steroids ordered. PLAN FOR INPATIENT GLYCEMIC CONTROL: * Bolus insulin * NovoLog per scale Q 6 hrs * Goal Range: Low 110 mg/dL - High 140 mg/dL * Correction Factor: 25 mg/dL/unit * Nutritional / Prandial insulin: 1 unit for every 20 grams CHO * Add overnight check at 00,04 to assess for steroid induced hyperglycemia PLAN FOR DISCHARGE: * to be determined
[2020-01-24] MEDS ORDERED: ACETAMINOPHEN 325 MG TAB PO PRN (16:42)
[2020-01-24] MEDS: ENOXAPARIN INJ 40 MG/0.4 ML SYR SQ SCH (16:46)
[2020-01-24] MEDS: AMOXICILLIN/CLAVULANATE 875 MG TAB PO SCH (16:47)
--- NOTE | 2020-01-24 17:55 | Hospitalist Progress Note ---
Date of Service January 24, 2020 Assessment & Plan (1) Acute on chronic respiratory failure with hypoxia and hypercapnia: due to CPD exacerbation required mechainical vent/intubation appreciate input from Pulm /critical care extubated 01/23/2020 on nasal canula (2) Stage 4 very severe COPD by GOLD classification: (3) Systolic congestive heart failure with reduced left ventricular function, NYHA class 2: ECHO on 01/22 severe cardiomyopathy EF 25% possible stress induced cardiomyopathy due to hypoxia , respiratory failure repeat ECHO shows ; improvement of EF 45 % ( approx baseline ) Continue ASA -Continue Plavix -Continue Toprol -Continue Rosuvastatin/lisinopril resumed (4) Acute metabolic encephalopathy: due to hypoxia , resp failure mental status improved to baseline awake and alert , oriented to place and person conversing apporopriately Elevated troponin : possible due to demand ischemia , due to hypoxia no evidence of acute coronary event ECHO : no wall motion abnormality (5) NOLBERTO (acute kidney injury): resolved lisinopril resumed (6) History of tobacco use disorder: Admission and Anticipated Discharge Date Admission Date: January 22, 2020 Subjective awake and alert , no complain of SOB or orthopnea . Chest pain when coughing no fever or chills Physical Exam Constitutional: WD/WN, vitals as above + ill appearing Eyes: PERRL, conjunctivae normal, anicteric sclerae ENMT: external ear and nose normal, oropharynx normal Neck: trachea midline, no thyromegaly Respiratory: normal respiratory effort and + cough; no respiratory distress Auscultation: + crackles and + wheezes Cardiovascular: Rate/Rhythm: regular rate and regular rhythm Gastrointestinal (Abdomen): Percussion/Palpation: abdomen soft; abdomen nontender Neurologic: PERRL, EOMI, accommodation nl, no face palsy, no dysarthria Psychiatric: A+Ox3, euthymic affect Results & Data Results & Data ([facility]) Vital Signs (Past 12 Hours) Vital Signs Temp Pulse Pulse Resp BP Pulse Ox 01/24/20 17:00 88 18 129/91 93 01/24/20 16:01 83 16 93 01/24/20 15:59 83 22 127/86 93 01/24/20 15:38 78 20 95 01/24/20 15:00 81 19 113/78 94 01/24/20 14:00 74 19 107/73 96 01/24/20 13:00 81 16 109/71 96 01/24/20 12:00 36.7 C 78 18 102/70 94 01/24/20 11:20 72 18 95 01/24/20 10:59 80 22 119/81 94 01/24/20 10:00 84 22 98/68 L 95 01/24/20 09:00 78 18 112/64 93 01/24/20 08:01 36.5 C 87 24 106/80 95 01/24/20 07:31 81 18 96 01/24/20 07:00 84 24 102/74 96 01/24/20 05:59 36.5 C 78 21 107/77 97
[2020-01-25] MEDS: INSULIN ASPART 100 UNITS/ML 3 ML PEN SC SCH ×6 (00:48→20:32)
[2020-01-25] MEDS: ALBUT/IPRATROP 3MG/0.5MG NEB 3 ML VIAL NEB PRN ×4 (03:41→22:58)
[2020-01-25] MEDS: methylPREDNISolone 40 MG in SYRINGE 0 ML IV SCH (04:06)
[2020-01-25 04:20] LABS: Hematocrit (blood only) 36.9 % (42-52); Hemoglobin 12.4 g/dL (14.0-18.0); Mean Corpuscular Hemoglobin 31.2 pg (25-34); Mean Corpuscular Hgb Conc 33.6 g/dL (32-36); Mean Corpuscular Volume 92.7 fL (80-100); Mean Platelet Volume 9.7 fL (7.4-10.4); Platelet Count 263 K/uL (130-400); RDW Coefficient of Variation 14.1 % (11.5-14.5); RDW Standard Deviation 47.2 fL (36.4-46.3); Red Blood Count 3.98 M/uL (4.7-6.1); White Blood Count 11.28 K/uL (4.8-10.8)
[2020-01-25 04:47] LABS: BUN Creatinine Ratio 26.5 (10-20); Calcium 8.7 mg/dl (8.5-10.1); Creatinine Clr Calc Pharmacy 84.7 ml/min; Est GFR (African American) 79.2; Est GFR (Non-African American) 68.3; Magnesium 2.4 mg/dl (1.8-2.4); Potassium 4.5 mmol/L (3.5-5.1)
[2020-01-25] MEDS: AMOXICILLIN/CLAVULANATE 875 MG TAB PO SCH ×2 (07:40→16:35)
[2020-01-25] MEDS: FLUTICASONE/VILANTEROL 200/25MCG 14 PUFFS/INHALER INH SCH (07:41)
[2020-01-25] MEDS: ROSUVASTATIN CALCIUM 20 MG TAB PO SCH (07:41)
[2020-01-25] MEDS: ROFLUMILAST 500 MCG TAB PO SCH (07:41)
[2020-01-25] MEDS: ASPIRIN 81 MG ECTAB PO SCH (07:42)
[2020-01-25] MEDS: CLOPIDOGREL BISULFATE 75 MG TAB PO SCH (07:42)
[2020-01-25] MEDS: ESCITALOPRAM OXALATE 20 MG TAB PO SCH (07:42)
[2020-01-25] MEDS: FUROSEMIDE 40 MG TAB PO SCH (07:42)
[2020-01-25] MEDS: METOPROLOL SUCC 25MG EXT REL TAB PO SCH (07:43)
[2020-01-25] MEDS: buPROPion XL 300 MG TABCR PO SCH (07:45)
[2020-01-25] MEDS: CHOLECALCIFEROL 1,000 UNITS 25 MCG TAB PO SCH (07:45)
[2020-01-25] MEDS: lisinopril 40 MG TAB PO SCH (07:45)
--- NOTE | 2020-01-25 07:51 | Critical Care Progress Note ---
Date of Service January 25, 2020 Assessment & Plan (1) Stage 4 very severe COPD by GOLD classification: Reason Critically Ill: 59M with altered mental status and worsening respiratory status requiring intubation in the ED. NEURO: CAM ICU: Negative -Sedation with Versed gtt and Fentanyl gtt - has since been discontinued entirely -Continue Lexapro -Continue Bupropion CARDIAC: -Patient with known poor cardiac function with EF 25% --> Repeat echo 01/24/20 EF 45-50% -EKG after stabilization showing normal sinus rhythm with PAC's, but no acute ST elevations -Had unremarkable cath in July, but due to elevated troponins was started on heparin gtt -Troponins downtrend - DC'd heparin gtt @ 24 hours -Continue ASA -Continue Plavix -Continue Toprol -Continue Rosuvastatin -Resume home lisinopril -Resume home lasix -Hypotension also fairly significant requiring pressors on admission to ICU - no longer on pressors RESPIRATORY: -Patient with worsening respiratory status, intubated in the ED -Patient extubated on 01/23/20 -Was started on empiric rocephin, transition to Augmentin for total 7 days for gold Stage IV COPD -Continue Roflumilast 500mcg QD -Continue Breo-Ellipta -Continue Incruse-ellipta -Duoneb q4h PRN -Solu-medrol 40mg q8h GI: -HH/DM2 diet RENAL/LYTES: -Replete as needed -NOLBERTO resolved : -Rand DC'd yesterday ENDO: -insulin subq HEME: -No concerns of anemia at this time ID: -COVID-19 negative, Respiratory Biofire negative, Urine negative -Was on empiric rocephin, switched to Augmentin PO yesterday - continue for 7 total days of effective duration LINES/IV ACCESS: L arm art - DC, peripherals CODE STATUS: Full DVT PROPHYLAXIS: Lovenox Disposition: Stable for downgrade Thank you for allowing us to participate in the care of this patient. Please refer to my attending physician's documentation for any further recommendations. (2) NOLBERTO (acute kidney injury): (3) History of tobacco use disorder: (4) Acute metabolic encephalopathy: (5) Chronic respiratory failure with hypoxia and hypercapnia: (6) Systolic congestive heart failure with reduced left ventricular function, NYHA class 2: (7) Ischemic heart disease: (8) Acute on chronic respiratory failure with hypoxia and hypercapnia: (9) Acute respiratory acidosis: Admission and Anticipated Discharge Date Admission Date: January 22, 2020 Supervising Physician Co-Signing Physician Notes Dr. Quach was resident physician during care of patient. I separately evaluated patient for obrien portions of the history and the exam. I was present during the critical portion of medical decision making, and I discussed the case with the resident. I generally agree with the findings and plan. Patient was discussed on multidisciplinary rounds with bedside ICU nurse and respiratory therapy. Patient was doing reasonably well but got up to use the restroom and became profoundly short of breath and diaphoretic. He is now back on his home trilogy unit. He is wheezing and moving minimal air. Will intensify his regiment and increase his steroid dose. Add low-dose theophylline. Will transition his bronchodilators to nebulized budesonide and Perforomist. Continue Incruse. It is possible that we may be able to get the nebulized medications paid for through his insurance as he has difficulty obtaining his medications due to cost in the outpatient setting. The patient was counseled regarding the importance of smoking cessation. He was advised that if he continues to smoke, his lung function will continue to deteriorate and potentially result in decreased quality and quantity of life. Subjective Examined patient while at the bedside this morning. Patient noting that he was feeling slightly SOB, but that it has been improved since his admission. He noted that he was to go upstairs yesterday, but felt as though he needed monitored one more day in the ICU. Upon further discussion today he notes he is agreeable to downgrade if we feel it is appropriate. No other complaints otherwise at this time. Review of Systems Constitutional: no fever and no chills Eyes: no worsening vision Ear, Nose, Mouth, Throat: no dizziness Respiratory: + cough, + dyspnea, + dyspnea on exertion and + wheezing Cardiovascular: + dyspnea and + dyspnea on exertion; no chest pain, no radiating jaw, neck or arm pain, no palpitations and no lightheadedness Gastrointestinal: no abdominal pain, no nausea and no vomiting Neurologic: no headache(s) Psychiatric: + anxiety Physical Exam Constitutional: no acute distress barrel chest Eyes: PERRL, conjunctivae normal, anicteric sclerae + anicteric sclerae; no conjunctival abnormality Neck: normal visual inspection; no tracheal deviation Respiratory: normal respiratory effort Auscultation: + diminished lung sounds (bilateral ) and + wheezes (throughout ) Cardiovascular: Rate/Rhythm: regular rate, regular rhythm and + tachycardic Heart Sounds: no murmur Vessels: posterior tibial pulses present and dorsalis pedis pulses present Gastrointestinal (Abdomen): normal bowel sounds, soft, nontender, no hepatosplenomegaly Inspection/Auscultation: normal bowel sounds Percussion/Palpation: abdomen soft Musculoskeletal: Extremities: + clubbing Neurologic: Cranial Nerves: PERRL, EOM intact bilaterally and normal hearing Psychiatric: Orientation: alert and oriented x 3 Results & Data Results & Data ([facility]) Vital Signs (Past 12 Hours) Vital Signs Temp Pulse Pulse Resp BP Pulse Ox 01/25/20 06:00 36.7 C 73 11 L 110/87 92 01/25/20 05:00 70 15 124/88 92 01/25/20 04:00 36.7 C 74 21 134/89 94 01/25/20 03:41 69 20 95 01/25/20 03:00 72 21 119/85 94 01/25/20 02:00 36.7 C 68 18 123/88 93 01/25/20 01:00 70 15 119/79 94 01/25/20 00:00 36.5 C 74 20 120/74 93 01/24/20 23:20 66 13 94 01/24/20 23:00 70 18 118/75 93 01/24/20 22:00 36.5 C 81 20 120/76 92 01/24/20 21:00 89 19 113/70 90 01/24/20 20:00 36.5 C 89 22 124/94 90 Resident Activity Tracking Resident Involvement: Resident Care Provided Care Provided: Adult Hospital Medicine
[2020-01-25] MEDS ORDERED: LORazepam 1 MG/2 ML VIAL IV STA (09:19)
[2020-01-25] MEDS ORDERED: LORazepam 2 MG/4 ML VIAL ONE (09:20)
[2020-01-25] MEDS: FORMOTEROL 20 MCG/2 ML VIAL NEB SCH ×2 (10:26→19:11)
[2020-01-25] MEDS: BUDESONIDE 0.5 MG/2 ML VIAL (PULMICORT) NEB SCH ×2 (10:26→19:11)
--- NOTE | 2020-01-25 10:45 | Billing Data ---
Date of Service January 25, 2020 Coding Level of Care Code 14927 Subseq Hosp Care Lvl 3
[2020-01-25] MEDS: methylPREDNISolone 80 MG in SYRINGE 0 ML IV SCH ×2 (11:13→20:23)
[2020-01-25] MEDS: THEOPHYLLINE 300MG EXTENDED REL TAB PO SCH (11:13)
[2020-01-25] MEDS: UMECLIDINIUM BROMIDE 62.5MCG/BLISTER 7 PUFFS/INHALER INH SCH (11:14)
--- NOTE | 2020-01-25 14:21 | Pharmacy Report ---
Pharmacy Glycemic Short Note 2 - Date of Service January 25, 2020 - Glycemic Short BSG Results (Last 24 hours): 01/24/20 01/24/20 01/25/20 16:46 19:47 00:26 Glucose POC Glucose 130 H 137 H 145 H 01/25/20 01/25/20 01/25/20 03:59 04:01 07:32 Glucose 136 H POC Glucose 139 H 132 H 01/25/20 11:17 Glucose POC Glucose 112 H OUTPATIENT ANTIDIABETIC REGIMEN: * N/A * A1c = 5.9% (01/23/20) ASSESSMENT: 01/24: * Pt received 3 units of insulin yesterday, BSGs range from 130-177 mg/dL * Fasting this morning 132 mg/dL within goal range. Steroids were increased from 40 mg IV q8H to 80 mg q8H, however BSGs have remained within goal range for now * Will continue current novolog parameters- conservative carb ratio- will tighten as needed with additon of steroids. 01/23: * Oliver received 1 unit of Novolog yesterday with majority of BSGs below goal * He was started on an oral diet and high dose steroids this morning (solu medrol 40 mg IV q8) * Thus far, steroids have not contributed to significant hyperglycemia. I will add a conservative carb ratio to regimen and add overnight checks. 01/22: * Oliver received 22 units of insulin since the time of consultation * He has been weaned off pressors and is now extubated. * A1c of 5.9% indicated pre-diabetes. With dramatic decrease in risk factors for stress induced hyperglycemia, patient may require little to no insulin. * Hypoglycemia ~1030 this morning. * Patient received a one time dose of Lantus last evening - no further basal insulin will be given * Loosen Novolog correction factor and change to q6h checks. 01/21: * Patient admitted to ICU with acute on chronic resp failure, severe COPD * He is now intubated, sedated and requiring pressors - multiple risk factors for stress induced hyperglycemia. * He initially was hyperglycemic on presentation however his last 2 BSGs 130- 140s range. He has no prior dx of DM and last A1c was consistent w/ "pre- diabetes". Will check A1c with next lab draw to determine if glycemic control has deteriorated. * Currently there are no steroids ordered. PLAN FOR INPATIENT GLYCEMIC CONTROL: * Bolus insulin * NovoLog per scale Q 6 hrs * Goal Range: Low 110 mg/dL - High 140 mg/dL * Correction Factor: 25 mg/dL/unit * Nutritional / Prandial insulin: 1 unit for every 20 grams CHO * Add overnight check at 00,04 to assess for steroid induced hyperglycemia PLAN FOR DISCHARGE: * to be determined
[2020-01-25] MEDS: ENOXAPARIN INJ 40 MG/0.4 ML SYR SQ SCH (16:33)
--- NOTE | 2020-01-25 17:20 | Hospitalist Progress Note ---
Date of Service January 25, 2020 Assessment & Plan (1) Acute on chronic respiratory failure with hypoxia and hypercapnia: due to CPD exacerbation required mechainical vent/intubation appreciate input from Pulm /critical care extubated 01/23/2020 Candi on nasal cannula, Significant anxiety components, leads to tachypnea and tachycardia, respiratory failure Appreciate input from pulmonology, continue to titrate anxiolytic meds (2) Stage 4 very severe COPD by GOLD classification: (3) Systolic congestive heart failure with reduced left ventricular function, NYHA class 2: ECHO on 01/22 severe cardiomyopathy EF 25% possible stress induced cardiomyopathy due to hypoxia , respiratory failure repeat ECHO shows ; improvement of EF 45 % ( approx baseline ) Continue ASA -Continue Plavix -Continue Toprol -Continue Rosuvastatin/lisinopril resumed (4) Acute metabolic encephalopathy: due to hypoxia , resp failure mental status improved to baseline awake and alert , oriented to place and person conversing apporopriately Elevated troponin : possible due to demand ischemia , due to hypoxia no evidence of acute coronary event ECHO : no wall motion abnormality (5) NOLBERTO (acute kidney injury): resolved lisinopril resumed (6) History of tobacco use disorder: Admission and Anticipated Discharge Date Admission Date: January 22, 2020 Subjective Respiratory status remains stable, unchanged No cough no, Does not have any orthopnea, Physical Exam Constitutional: WD/WN, vitals as above + ill appearing Eyes: PERRL, conjunctivae normal, anicteric sclerae ENMT: external ear and nose normal, oropharynx normal Neck: trachea midline, no thyromegaly Respiratory: normal respiratory effort and + cough; no respiratory distress Auscultation: + crackles and + wheezes Cardiovascular: Rate/Rhythm: regular rate and regular rhythm Gastrointestinal (Abdomen): Percussion/Palpation: abdomen soft; abdomen nontender Neurologic: PERRL, EOMI, accommodation nl, no face palsy, no dysarthria Psychiatric: A+Ox3, euthymic affect Results & Data Results & Data ([facility]) Vital Signs (Past 12 Hours) Vital Signs Temp Pulse Pulse Resp BP Pulse Ox 01/25/20 15:05 83 18 91 01/25/20 15:00 87 22 112/72 92 01/25/20 14:01 83 20 129/83 99 01/25/20 14:00 85 20 97 01/25/20 13:00 84 20 88 L 01/25/20 12:00 37.1 C 84 24 88 L 01/25/20 11:01 69/46 L 91 01/25/20 11:00 93 01/25/20 10:28 87 24 92 01/25/20 10:01 95 H 19 129/94 94 01/25/20 10:00 96 H 17 94 01/25/20 09:28 117 H 147/124 H 94 01/25/20 08:01 77 22 134/74 01/25/20 08:00 37.1 C 76 13 110/87 99 01/25/20 07:52 69 26 H 90 01/25/20 07:00 74 24 126/77 92 01/25/20 06:00 36.7 C 73 11 L 110/87 92
[2020-01-25] MEDS ORDERED: CALCIUM CARBONATE 500 MG CHEWABLE TAB ONE (22:32)
[2020-01-26] MEDS: ALBUT/IPRATROP 3MG/0.5MG NEB 3 ML VIAL NEB PRN ×3 (03:20→23:02)
[2020-01-26] MEDS: methylPREDNISolone 80 MG in SYRINGE 0 ML IV SCH ×3 (03:32→20:03)
[2020-01-26 04:48] LABS: Hematocrit (blood only) 42.1 % (42-52); Hemoglobin 13.4 g/dL (14.0-18.0); Immature Granulocytes # (auto) 0.03 K/uL (0.00-0.02); Immature Granulocytes % (auto) 0.3 %; Lymphocytes # (auto) 0.81 K/uL (1.2-3.4); Mean Corpuscular Hgb Conc 31.8 g/dL (32-36); Mean Corpuscular Volume 94.4 fL (80-100); Mean Platelet Volume 9.8 fL (7.4-10.4); Monocytes # (auto) 0.78 K/uL (0.11-0.59); Monocytes % (auto) 6.7 %; Neutrophils # (auto) 9.99 K/uL (1.4-6.5); Platelet Count 284 K/uL (130-400); RDW Coefficient of Variation 14.4 % (11.5-14.5); RDW Standard Deviation 49.2 fL (36.4-46.3); Red Blood Count 4.46 M/uL (4.7-6.1); White Blood Count 11.61 K/uL (4.8-10.8)
[2020-01-26 05:18] LABS: BUN Creatinine Ratio 33.1 (10-20); Calcium 9.2 mg/dl (8.5-10.1); Creatinine Clr Calc Pharmacy 91.9 ml/min; Est GFR (African American) 87.2; Est GFR (Non-African American) 75.3; Magnesium 2.4 mg/dl (1.8-2.4); Potassium 4.3 mmol/L (3.5-5.1)
[2020-01-26 05:22] LABS: Phosphorus 4.7 mg/dl (2.5-4.9)
[2020-01-26] MEDS: BUDESONIDE 0.5 MG/2 ML VIAL (PULMICORT) NEB SCH ×2 (07:03→19:34)
[2020-01-26] MEDS: FORMOTEROL 20 MCG/2 ML VIAL NEB SCH ×2 (07:03→19:34)
--- NOTE | 2020-01-26 07:25 | Critical Care Progress Note ---
Date of Service January 26, 2020 Assessment & Plan (1) Stage 4 very severe COPD by GOLD classification: Reason Critically Ill: 59M with altered mental status and worsening respiratory status requiring intubation in the ED. NEURO: CAM ICU: Negative -Sedation with Versed gtt and Fentanyl gtt - has since been discontinued entirely -Continue Lexapro -Continue Bupropion CARDIAC: -Patient with known poor cardiac function with EF 25% --> Repeat echo 01/24/20 EF 45-50% -EKG after stabilization showing normal sinus rhythm with PAC's, but no acute ST elevations -Had unremarkable cath in July, but due to elevated troponins was started on heparin gtt -Troponins downtrend - DC'd heparin gtt @ 24 hours -Continue ASA -Continue Plavix -Continue Toprol -Continue Rosuvastatin -Resume home lisinopril -Resume home lasix -Hypotension also fairly significant requiring pressors on admission to ICU - no longer on pressors RESPIRATORY: -Patient with worsening respiratory status, intubated in the ED -Patient extubated on 01/23/20 -Was started on empiric rocephin, transition to Augmentin for total 7 days for gold Stage IV COPD, will complete course on 01/29/20 -Patient had an event yesterday morning after getting up to use the restroom where he became profoundly SOB and diaphoretic -Adjustments made patients regiment and increase of steroid dose -Continue Roflumilast 500mcg QD -Add Theophylline -Nebulized Budesonide and Perforomist -Continue Incruse-ellipta -Duoneb q4h PRN -Solu-medrol 40mg increase to Solu-Medrol 80mg q8h, will require transition to oral steroids prior to DC GI: -HH/DM2 diet RENAL/LYTES: -Replete as needed -NOLBERTO resolved : -Rand DC'd ENDO: -insulin subq HEME: -No concerns of anemia at this time ID: -COVID-19 negative, Respiratory Biofire negative, Urine negative -Was on empiric rocephin, switched to Augmentin PO -Deescalate to Amoxicillin 500 TID x 2 days to complete course. LINES/IV ACCESS: L arm art - DC, peripherals CODE STATUS: Full DVT PROPHYLAXIS: Lovenox Disposition: Stable for downgrade Thank you for allowing us to participate in the care of this patient. Please refer to my attending physician's documentation for any further recommendations. (2) NOLBERTO (acute kidney injury): (3) History of tobacco use disorder: (4) Acute metabolic encephalopathy: (5) Chronic respiratory failure with hypoxia and hypercapnia: (6) Systolic congestive heart failure with reduced left ventricular function, NYHA class 2: (7) Ischemic heart disease: (8) Acute on chronic respiratory failure with hypoxia and hypercapnia: (9) Acute respiratory acidosis: Admission and Anticipated Discharge Date Admission Date: January 22, 2020 Supervising Physician Co-Signing Physician Notes Dr. Quach was resident physician during care of patient. I separately evaluated patient for obrien portions of the history and the exam. I was present during the critical portion of medical decision making, and I discussed the case with the resident. I generally agree with the findings and plan. Patient was discussed on multidisciplinary rounds with bedside ICU nurse and respiratory therapy. Patient has shown slow and steady improvement over the last 24 hours. He is still exhibiting some mild increased work of breathing but overall appears much more comfortable. He is coughing less. He is not expectorating phlegm. He is tolerating a diet. He tolerated his trilogy at night. He appears appropriate to transfer to the floor. We will continue IV steroids for additional 24 hours to ensure that he is appropriate before transitioning to oral medications. We will have case management meet with him to discuss potential impediments to long-term medication compliance. We will continue to follow for pulmonary issues Subjective Patient noting examined at the bedside this AM. Patient stating that he had a relatively good night and that this is "the best I've been breathing since I've been here" this AM. Had a jaleel discussion with patient in regards to his goals of care which patient notes that he "thinks about this all the time." He feels that if he could "get on the right medication regiment" that he will feel better and live a better life. Review of Systems Constitutional: no fever and no chills Eyes: no worsening vision Ear, Nose, Mouth, Throat: no dizziness Respiratory: + cough, + chest congestion, + dyspnea on exertion and + wheezing Cardiovascular: + dyspnea on exertion; no chest pain and no edema Gastrointestinal: no abdominal pain, no nausea and no vomiting Physical Exam Constitutional: no acute distress Eyes: PERRL, conjunctivae normal, anicteric sclerae + anicteric sclerae; no conjunctival abnormality Neck: normal visual inspection; no tracheal deviation Respiratory: normal respiratory effort (on 3L NC, poor movement of air ) Auscultation: + diminished lung sounds (bilateral ) and + wheezes (throughout ) Cardiovascular: Rate/Rhythm: regular rate, regular rhythm and + tachycardic Heart Sounds: no murmur Gastrointestinal (Abdomen): normal bowel sounds, soft, nontender, no hepatosplenomegaly Inspection/Auscultation: normal bowel sounds Percussion/Palpation: abdomen soft Musculoskeletal: Extremities: + clubbing Neurologic: Cranial Nerves: PERRL, EOM intact bilaterally and normal hearing Psychiatric: Orientation: alert and oriented x 3 Results & Data Results & Data ([facility]) Vital Signs (Past 12 Hours) Vital Signs Temp Pulse Pulse Pulse Resp BP Pulse Ox 01/26/20 07:07 62 20 99 01/26/20 06:01 62 19 104/75 99 01/26/20 06:00 62 20 98 01/26/20 05:00 74 22 112/78 95 01/26/20 04:01 36.9 C 64 19 102/73 93 01/26/20 03:20 63 20 97 01/26/20 03:01 36.8 C 60 20 114/78 97 01/26/20 02:01 64 20 100/80 01/26/20 02:00 66 23 96 01/26/20 01:59 68 01/26/20 01:00 68 23 105/78 01/26/20 00:02 70 23 95 01/26/20 00:01 70 23 112/91 96 01/26/20 00:00 64 23 95 01/25/20 23:30 62 18 94 01/25/20 23:00 36.7 C 65 20 127/88 98 01/25/20 22:59 59 L 22 94 01/25/20 22:00 69 25 H 114/83 93 01/25/20 21:02 74 01/25/20 21:00 69 21 110/79 92 01/25/20 20:30 75 22 90 01/25/20 20:00 37 C 79 22 109/74 92 Resident Activity Tracking Resident Involvement: Resident Care Provided Care Provided: Adult [facility] Medicine
[2020-01-26] MEDS: AMOXICILLIN/CLAVULANATE 875 MG TAB PO SCH (07:27)
[2020-01-26] MEDS: ROSUVASTATIN CALCIUM 20 MG TAB PO SCH (07:27)
[2020-01-26] MEDS: ROFLUMILAST 500 MCG TAB PO SCH (07:28)
[2020-01-26] MEDS: FUROSEMIDE 40 MG TAB PO SCH (07:28)
[2020-01-26] MEDS: ASPIRIN 81 MG ECTAB PO SCH (07:28)
[2020-01-26] MEDS: THEOPHYLLINE 300MG EXTENDED REL TAB PO SCH (07:29)
[2020-01-26] MEDS: METOPROLOL SUCC 25MG EXT REL TAB PO SCH (07:29)
[2020-01-26] MEDS: ESCITALOPRAM OXALATE 20 MG TAB PO SCH (07:29)
[2020-01-26] MEDS: CLOPIDOGREL BISULFATE 75 MG TAB PO SCH (07:29)
[2020-01-26] MEDS: CHOLECALCIFEROL 1,000 UNITS 25 MCG TAB PO SCH (07:30)
[2020-01-26] MEDS: buPROPion XL 300 MG TABCR PO SCH (07:30)
[2020-01-26] MEDS: lisinopril 40 MG TAB PO SCH (07:30)
[2020-01-26] MEDS: INSULIN ASPART 100 UNITS/ML 3 ML PEN SC SCH ×4 (08:31→20:26)
--- NOTE | 2020-01-26 10:35 | Billing Data ---
Date of Service January 26, 2020 Coding Level of Care Code 88587 Subseq Hosp Care Lvl 2
[2020-01-26] MEDS: AMOXICILLIN 500 MG CAP PO SCH ×3 (11:56→20:04)
[2020-01-26] MEDS: UMECLIDINIUM BROMIDE 62.5MCG/BLISTER 7 PUFFS/INHALER INH SCH (11:56)
--- NOTE | 2020-01-26 13:45 | Pharmacy Report ---
Pharmacy Glycemic Short Note 2 - Date of Service January 26, 2020 - Glycemic Short BSG Results (Last 24 hours): 01/25/20 01/25/20 01/26/20 16:17 20:30 04:19 Glucose 134 H POC Glucose 127 H 112 H 01/26/20 01/26/20 07:22 11:27 Glucose POC Glucose 141 H 101 H OUTPATIENT ANTIDIABETIC REGIMEN: * N/A * A1c = 5.9% (01/23/20) ASSESSMENT: 01/25: * Pt received 8 units of insulin yesterday with all BSGs within goal range * Fasting this morning 141- will continue to hold basal, continue to monitor * Patient continues of methylpred 80 mg q8H, will continue loose carb coverage if BSGs continue to be within range will consider d/c and keeping correction factor only * 01/24: * Pt received 3 units of insulin yesterday, BSGs range from 130-177 mg/dL * Fasting this morning 132 mg/dL within goal range. Steroids were increased from 40 mg IV q8H to 80 mg q8H, however BSGs have remained within goal range for now * Will continue current novolog parameters- conservative carb ratio- will tighten as needed with additon of steroids. 01/23: * Oliver received 1 unit of Novolog yesterday with majority of BSGs below goal * He was started on an oral diet and high dose steroids this morning (solu medrol 40 mg IV q8) * Thus far, steroids have not contributed to significant hyperglycemia. I will add a conservative carb ratio to regimen and add overnight checks. 01/22: * Oliver received 22 units of insulin since the time of consultation * He has been weaned off pressors and is now extubated. * A1c of 5.9% indicated pre-diabetes. With dramatic decrease in risk factors for stress induced hyperglycemia, patient may require little to no insulin. * Hypoglycemia ~1030 this morning. * Patient received a one time dose of Lantus last evening - no further basal insulin will be given * Loosen Novolog correction factor and change to q6h checks. 01/21: * Patient admitted to ICU with acute on chronic resp failure, severe COPD * He is now intubated, sedated and requiring pressors - multiple risk factors for stress induced hyperglycemia. * He initially was hyperglycemic on presentation however his last 2 BSGs 130- 140s range. He has no prior dx of DM and last A1c was consistent w/ "pre- diabetes". Will check A1c with next lab draw to determine if glycemic control has deteriorated. * Currently there are no steroids ordered. PLAN FOR INPATIENT GLYCEMIC CONTROL: * Bolus insulin * NovoLog per scale Q 6 hrs * Goal Range: Low 110 mg/dL - High 140 mg/dL * Correction Factor: 25 mg/dL/unit * Nutritional / Prandial insulin: 1 unit for every 20 grams CHO PLAN FOR DISCHARGE: * to be determined
[2020-01-26] MEDS: ENOXAPARIN INJ 40 MG/0.4 ML SYR SQ SCH (16:57)
--- NOTE | 2020-01-26 16:58 | Hospitalist Progress Note ---
Date of Service January 26, 2020 Assessment & Plan (1) Acute on chronic respiratory failure with hypoxia and hypercapnia: due to CPD exacerbation required mechainical vent/intubation appreciate input from Pulm /critical care extubated 01/23/2020 respiratory status has remained stable per Pulm team : on Augmentin for total 7 days, complete course on 01/29/20 -Continue Roflumilast 500mcg QD -Add Theophylline -Nebulized Budesonide and Perforomist -Continue Incruse-ellipta -Duoneb q4h PRN -Solu-medrol 40mg increase to Solu-Medrol 80mg q8h, will require transition to oral steroids prior to DC pt follows with Dr Metzger in Pulm clinic (2) Stage 4 very severe COPD by GOLD classification: management as outlined above (3) Systolic congestive heart failure with reduced left ventricular function, NYHA class 2: ECHO on 01/22 severe cardiomyopathy EF 25% possible stress induced cardiomyopathy due to hypoxia , respiratory failure repeat ECHO shows ; improvement of EF 45 % ( approx baseline ) Continue ASA -Continue Plavix -Continue Toprol -Continue Rosuvastatin/lisinopril resumed (4) Acute metabolic encephalopathy: resolved due to hypoxia , resp failure mental status improved to baseline awake and alert , oriented to place and person conversing apporopriately Elevated troponin : possible due to demand ischemia , due to hypoxia no evidence of acute coronary event ECHO : no wall motion abnormality (5) NOLBERTO (acute kidney injury): resolved lisinopril resumed (6) History of tobacco use disorder: ordered for PT/OT eval social service consulted for d/c planning Admission and Anticipated Discharge Date Admission Date: January 22, 2020 Subjective respiratory status remains the same on 2L o2 , which is his baseline no wheeze , minimum cough Physical Exam Constitutional: WD/WN, vitals as above + ill appearing Eyes: PERRL, conjunctivae normal, anicteric sclerae ENMT: external ear and nose normal, oropharynx normal Neck: trachea midline, no thyromegaly Respiratory: normal respiratory effort and + cough; no respiratory distress Auscultation: + crackles and + wheezes Cardiovascular: Rate/Rhythm: regular rate and regular rhythm Gastrointestinal (Abdomen): Percussion/Palpation: abdomen soft; abdomen nontender Neurologic: PERRL, EOMI, accommodation nl, no face palsy, no dysarthria Psychiatric: A+Ox3, euthymic affect Results & Data Results & Data ([facility]) Vital Signs (Past 12 Hours) Vital Signs Temp Pulse Pulse Resp BP Pulse Ox 01/26/20 15:38 66 20 99 01/26/20 12:00 36.7 C 90 32 H 106/74 94 01/26/20 11:31 92 H 26 H 98/72 L 90 01/26/20 10:22 79 21 119/71 96 01/26/20 10:01 73 16 119/71 95 01/26/20 10:00 69 24 91 01/26/20 09:00 76 22 122/71 01/26/20 08:00 36.7 C 85 19 109/79 92 01/26/20 07:07 62 20 99 01/26/20 07:01 67 18 104/57 L 97 01/26/20 07:00 79 18 95 01/26/20 06:01 62 19 104/75 99 01/26/20 06:00 62 20 98 01/26/20 05:00 74 22 112/78 95
[2020-01-26] MEDS: CALCIUM CARBONATE 500 MG CHEWABLE TAB PO PRN ×2 (20:03→23:14)
--- NOTE | 2020-01-26 20:52 | Communication Note ---
:Date of Service: January 26, 2020 Attending addendum Patient states he does not have prescription benefit/Medicare part D [id number] cost for inhalers: Diliricept and Advair were to too expensive- he was not able to use any of them for past few weeks which caused respiratory failure, hospital admission Patient request for assistance for prescription meds cost Social service input appreciated- Paperwork for reduced peoples/prescription benefit will be faxed by case management. If there is a lag time at bedtime getting approved, Need to discuss with pulmonology for alternative low cost inhalers-also utilize coupons if applicable to reduce [id number] cost Beverley Trevino MD
[2020-01-27] MEDS: ALBUT/IPRATROP 3MG/0.5MG NEB 3 ML VIAL NEB PRN ×4 (03:12→22:50)
[2020-01-27] MEDS: methylPREDNISolone 80 MG in SYRINGE 0 ML IV SCH ×3 (05:08→20:43)
[2020-01-27] MEDS: FORMOTEROL 20 MCG/2 ML VIAL NEB SCH ×2 (07:08→19:49)
[2020-01-27] MEDS: BUDESONIDE 0.5 MG/2 ML VIAL (PULMICORT) NEB SCH ×2 (07:08→19:49)
[2020-01-27] MEDS: THEOPHYLLINE 300MG EXTENDED REL TAB PO SCH (08:05)
[2020-01-27] MEDS: buPROPion XL 300 MG TABCR PO SCH (08:06)
[2020-01-27] MEDS: ROFLUMILAST 500 MCG TAB PO SCH (08:06)
[2020-01-27] MEDS: FUROSEMIDE 40 MG TAB PO SCH (08:06)
[2020-01-27] MEDS: lisinopril 40 MG TAB PO SCH (08:06)
[2020-01-27] MEDS: AMOXICILLIN 500 MG CAP PO SCH ×3 (08:06→21:12)
[2020-01-27] MEDS: CLOPIDOGREL BISULFATE 75 MG TAB PO SCH (08:06)
[2020-01-27] MEDS: METOPROLOL SUCC 25MG EXT REL TAB PO SCH (08:06)
[2020-01-27] MEDS: ROSUVASTATIN CALCIUM 20 MG TAB PO SCH (08:06)
[2020-01-27] MEDS: CHOLECALCIFEROL 1,000 UNITS 25 MCG TAB PO SCH (08:07)
[2020-01-27] MEDS: ESCITALOPRAM OXALATE 20 MG TAB PO SCH (08:07)
[2020-01-27] MEDS: ASPIRIN 81 MG ECTAB PO SCH (08:07)
[2020-01-27] MEDS: INSULIN ASPART 100 UNITS/ML 3 ML PEN SC SCH ×4 (08:10→20:45)
--- NOTE | 2020-01-27 09:06 | Pulmonology Progress Note ---
Date of Service January 27, 2020 Assessment & Plan (1) Chronic respiratory failure with hypoxia and hypercapnia: Impression: 59-year-old male with very advanced obstructive lung disease admitted with exacerbation precipitated by noncompliance with outpatient medical therapy. He was improving yesterday but appears to have had a slight relapse earlier this morning. Recommendations: 1. Acute exacerbation COPD: Continue Solu-Medrol. He is currently on Perforomist, budesonide, Incruse, amoxicillin, as needed DuoNebs, Daliresp, and low-dose theophylline. Continue Solu-Medrol at current doses for now. He continues to use nocturnal positive airway pressure. Given his inability to expectorate phlegm, will place him on a trial of hypertonic saline nebs as well as Mucinex. Could consider increasing theophylline but will hold off for now. 2. Hypoxemic hypercarbic respiratory failure: Continue nocturnal trilogy. Continue supplemental oxygen during the day titrated to keep saturations at or above 85%. 3. Smoking cessation was reinforced with the patient as well as the importance of medical compliance. 4. Exercise and weight loss were recommended. Outpatient pulmonary rehab ilitation may be consideration. (2) Stage 4 very severe COPD by GOLD classification: (3) COPD with acute exacerbation: Admission and Anticipated Discharge Date Admission Date: January 22, 2020 Subjective Patient seen this morning. He is off his trilogy. He sitting up in more dyspneic with increased work of breathing compared to yesterday. He states he had a rough night. He did use his Trelegy. He got his breathing treatments this morning but he feels congested in his chest and feels like he is unable to expectorate phlegm. He is not wheezing but is not moving particularly good air this morning. Review of Systems Review of Systems: All systems reviewed & are unremarkable except as noted in HPI & below Physical Exam Constitutional: well developed, + acute distress and + overweight Neck: trachea midline, no thyromegaly Respiratory: + labored breathing Diminished breath sounds throughout both lung parra Cardiovascular: RRR, no murmur, no edema Gastrointestinal (Abdomen): normal bowel sounds, soft, nontender, no hepatosplenomegaly Musculoskeletal: Extremities: extremities normal to inspection Skin: no rashes, warm and dry Neurologic: Nonfocal exam Lymphatic: no cervical lymphadenopathy Results & Data Results & Data ([facility]) Vital Signs (Past 12 Hours) Vital Signs Temp Pulse Pulse Pulse Resp BP Pulse Ox 01/27/20 08:06 36.8 C 81 28 H 92 01/27/20 07:10 58 L 20 96 01/27/20 03:36 36.5 C 56 L 18 118/74 96 01/27/20 03:13 63 20 96 01/26/20 23:57 87 01/26/20 23:08 36.4 C L 96 H 18 121/75 99 01/26/20 23:03 70 18 96 Laboratory Results 01/26/20 04:19 01/26/20 04:19 Diagnostic Findings No new imaging PG Care Time/CCT Total # of Minutes Spent Total Time Spent with Patient: Total time spent is greater than 50% in coordination of care (as documented) at patient's floor/unit and/or counseling patient: Coding Level of Care Code 36252 Subseq Hosp Care Lvl 3 Diagnoses Chronic respiratory failure with hypoxia and hypercapnia J96.11; J96.12 Stage 4 very severe COPD by GOLD classification J44.9 COPD with acute exacerbation J44.1
[2020-01-27] MEDS ORDERED: guaiFENesin 600 MG TABCR PO STA (11:20)
[2020-01-27] MEDS: UMECLIDINIUM BROMIDE 62.5MCG/BLISTER 7 PUFFS/INHALER INH SCH (11:51)
[2020-01-27] MEDS: ENOXAPARIN INJ 40 MG/0.4 ML SYR SQ SCH (17:46)
--- NOTE | 2020-01-27 18:42 | Hospitalist Progress Note ---
Date of Service January 27, 2020 Assessment & Plan (1) Stage 4 very severe COPD by GOLD classification: (2) Acute on chronic respiratory failure with hypoxia and hypercapnia: due to CPD exacerbation ABG on admission with pH 7 and Pco2 97 S/P intubation with mechanical vent Extubated 01/23/2020 and has been stable Pulm on board and recommended to continue Augmentin for total 7 days, complete course on 01/29/20 Continue IV steroid for now and Roflumilast 500mcg QD Continue Theophylline and Nebulizer treatment with Budesonide and Perforomist and duoneb Continue Incruse-ellipta Will taper solumedrol tomorrow Follow up with Dr Metzger in Pulm clinic Will need insurance coverage to get his meds (3) Systolic congestive heart failure with reduced left ventricular function, NYHA class 2: Echo on 01/22 showed left ventricular systolic function is severely reduced with ejection fraction 15 to 20%. Repeat echo on 01/23 showed left ventricular systolic function is mildly reduced with ejection fraction 45 (approx baseline) Possible due to stress induced cardiomyopathy due to hypoxia and respiratory failure Continue lasix 40mg daily Continue ASA, Plavix, Toprol and lisinopril (4) Acute metabolic encephalopathy: Due to respiratory failure with hypoxia resolved Elevated troponin : possible due to demand ischemia due to hypoxia respiratory failure no evidence of acute coronary event ECHO showed no wall motion abnormality Continue metoprolol, statin, plavix and aspirin (5) NOLBERTO (acute kidney injury): Creatinine 1.6 admission creatnine back to baseline Continue lisinopril and lasix resolved (6) History of tobacco use disorder: Relapsed Counseling on smoking cessation Admission and Anticipated Discharge Date Admission Date: January 22, 2020 Subjective Pt was seen and examined Lying in bed with no distress Pt said that his breathing feels a lot better he said that he does not have any insurance coverage to buy his medications He said that the medications for his lung are expensive He said that his coughing less Denies any chest pain, palpitation, dizziness and fever Physical Exam Physical Exam: General- No acute distress Head- atraumatic Eyes- PERRL, EOMI, ENT- oropharynx clear Neck- supple, no JVD Lungs- +wheezing Heart- regular rhythm; no murmur Abdomen- normal bowel sounds, soft, nontender Extremities- no calf tenderness Neuro- alert, oriented x 3; PERRL, EOMI; no facial palsy; no dysarthria Skin- warm & dry Results & Data Results & Data ([facility]) Vital Signs (Past 12 Hours) Vital Signs Temp Pulse Pulse Pulse Resp BP Pulse Ox 01/27/20 16:00 63 01/27/20 15:12 36.7 C 83 24 112/68 94 01/27/20 14:57 66 20 95 01/27/20 11:26 56 L 18 94 01/27/20 11:02 36.5 C 64 18 116/64 96 01/27/20 08:06 36.8 C 81 28 H 92 01/27/20 08:00 56 L 01/27/20 07:10 58 L 20 96
[2020-01-27] MEDS: SODIUM CHLOR 7% 4 ML NEB NEB SCH (19:50)
[2020-01-27] MEDS: guaiFENesin 600 MG TABCR PO SCH (20:44)
[2020-01-28] MEDS: methylPREDNISolone 80 MG in SYRINGE 0 ML IV SCH (04:05)
[2020-01-28] MEDS: ALBUT/IPRATROP 3MG/0.5MG NEB 3 ML VIAL NEB PRN (05:42)
[2020-01-28] MEDS ORDERED: ALBUMIN 25% 50 ML IV ONE ×3 (05:45→23:00)
[2020-01-28] MEDS ORDERED: XOPENEX/ATROVENT 1.25mg/0.5MG NEB COMBO NEB PRN (05:48)
[2020-01-28] MEDS ORDERED: methylPREDNISolone 80 MG in SYRINGE 0 ML IV SCH ×2 (05:50→12:00)
[2020-01-28] MEDS: buPROPion XL 300 MG TABCR PO SCH ×2 (06:25→08:55)
[2020-01-28] MEDS: SODIUM CHLOR 7% 4 ML NEB NEB SCH ×2 (07:13→20:51)
[2020-01-28] MEDS: BUDESONIDE 0.5 MG/2 ML VIAL (PULMICORT) NEB SCH ×2 (07:13→20:46)
[2020-01-28] MEDS: FORMOTEROL 20 MCG/2 ML VIAL NEB SCH ×2 (07:13→20:46)
--- NOTE | 2020-01-28 08:44 | Pharmacy Report ---
Pharmacy Glycemic Short Note 2 - Date of Service January 28, 2020 - Glycemic Short BSG Results (Last 24 hours): OUTPATIENT ANTIDIABETIC REGIMEN: * N/A * A1c = 5.9% (01/23/20) ASSESSMENT: 01/27: * Oliver required 4 units of insulin yesterday - all bolus * BSGs were 750-770-679-95 mg/dL - excellent control * He continues on methylprednisolone 80 mg IV Q8H * Fasting BSG this AM was 155 mg/dL - above goal * Lunchtime BSG was 145 mg/dL * Tightened CR this morning 01/25: * Pt received 8 units of insulin yesterday with all BSGs within goal range * Fasting this morning 141- will continue to hold basal, continue to monitor * Patient continues of methylpred 80 mg q8H, will continue loose carb coverage if BSGs continue to be within range will consider d/c and keeping correction factor only PLAN FOR INPATIENT GLYCEMIC CONTROL: * Bolus insulin - tightened CR * NovoLog per scale ACHS * Goal Range: Low 110 mg/dL - High 140 mg/dL * Correction Factor: 25 mg/dL/unit * Nutritional / Prandial insulin: 1 unit for every 15 grams CHO PLAN FOR DISCHARGE: * HbA1c = 5.9%. Patient will not require any antidiabetic medications upon d ischarge.
[2020-01-28] MEDS: guaiFENesin 600 MG TABCR PO SCH ×2 (08:52→23:08)
[2020-01-28] MEDS: ROSUVASTATIN CALCIUM 20 MG TAB PO SCH (08:52)
[2020-01-28] MEDS: lisinopril 40 MG TAB PO SCH (08:53)
[2020-01-28] MEDS: ASPIRIN 81 MG ECTAB PO SCH (08:53)
[2020-01-28] MEDS: ROFLUMILAST 500 MCG TAB PO SCH (08:54)
[2020-01-28] MEDS: CLOPIDOGREL BISULFATE 75 MG TAB PO SCH (08:54)
[2020-01-28] MEDS: CHOLECALCIFEROL 1,000 UNITS 25 MCG TAB PO SCH (08:54)
[2020-01-28] MEDS: FUROSEMIDE 40 MG TAB PO SCH (08:56)
[2020-01-28] MEDS: ESCITALOPRAM OXALATE 20 MG TAB PO SCH (08:56)
[2020-01-28] MEDS: METOPROLOL SUCC 25MG EXT REL TAB PO SCH (08:57)
[2020-01-28] MEDS: THEOPHYLLINE 300MG EXTENDED REL TAB PO SCH (08:57)
[2020-01-28] MEDS: INSULIN ASPART 100 UNITS/ML 3 ML PEN SC SCH ×4 (08:58→23:42)
[2020-01-28 09:19] LABS: Calcium 8.3 mg/dl (8.5-10.1); Creatinine Clr Calc Pharmacy 73.3 ml/min; Magnesium 2.5 mg/dl (1.8-2.4)
[2020-01-28 09:30] LABS: Hematocrit (blood only) 31.2 % (42-52); Hemoglobin 9.9 g/dL (14.0-18.0); Immature Granulocytes # (auto) 0.14 K/uL (0.00-0.02); Immature Granulocytes % (auto) 0.9 %; Lymphocytes # (auto) 0.58 K/uL (1.2-3.4); Lymphocytes % (auto) 3.7 %; Mean Corpuscular Hemoglobin 30.8 pg (25-34); Mean Corpuscular Hgb Conc 31.7 g/dL (32-36); Mean Corpuscular Volume 97.2 fL (80-100); Mean Platelet Volume 9.8 fL (7.4-10.4); Monocytes # (auto) 1.15 K/uL (0.11-0.59); Monocytes % (auto) 7.3 %; Neutrophils # (auto) 13.84 K/uL (1.4-6.5); Neutrophils % (auto) 88.1 %; Platelet Count 272 K/uL (130-400); RDW Coefficient of Variation 14.3 % (11.5-14.5); RDW Standard Deviation 50.5 fL (36.4-46.3); Red Blood Count 3.21 M/uL (4.7-6.1); White Blood Count 15.71 K/uL (4.8-10.8)
[2020-01-28] MEDS ORDERED: LORazepam 1 MG/2 ML VIAL IV STA (10:43)
[2020-01-28] MEDS ORDERED: LORazepam 2 MG/4 ML VIAL ONE (10:46)
[2020-01-28] MEDS: UMECLIDINIUM BROMIDE 62.5MCG/BLISTER 7 PUFFS/INHALER INH SCH (12:18)
--- NOTE | 2020-01-28 14:12 | Pulmonology Progress Note ---
Date of Service January 28, 2020 Assessment & Plan (1) Chronic respiratory failure with hypoxia and hypercapnia: Impression: 59-year-old male with very advanced obstructive lung disease admitted with exacerbation precipitated by noncompliance with outpatient medical therapy. Patient experienced what appeared to be a vagal response this morning. He also has new found tremor. He is on high-dose steroids with methylprednisolone 80 mg IV every 8 hours. Recommendations: 1. Acute exacerbation COPD: Decrease methylprednisolone from 80 mg every 8 hours to 40 mg every 8 hours. Hold nighttime dose. Next dose 8 PM tonight. We will also treat with 1 mg of lorazepam for anxiety and tremor. Continue Perforomist, budesonide, Incruse, amoxicillin, as needed DuoNebs, Daliresp, and low-dose theophylline. Theophylline level was checked and is 4. Continue hypertonic saline nebs as well as Mucinex. Contributing to with trilogy noninvasive ventilation at night and as needed throughout the day. 2. Hypoxemic hypercarbic respiratory failure: Continue nocturnal trilogy. Continue supplemental oxygen during the day titrated to keep saturations at or above 85%. 3. Smoking cessation was reinforced. 4. Check EKG as well as troponin level due to vagal response. Troponin level was elevated on admission. Echocardiogram performed 01/24/2020 showed left ventricular ejection fraction of 45 to 50%. Thank you for including us in the care of this patient. Please refer to Dr. Metzger's addendum for further recommendations. We will continue to follow along with this patient. (2) Stage 4 very severe COPD by GOLD classification: (3) COPD with acute exacerbation: Admission and Anticipated Discharge Date Admission Date: January 22, 2020 Supervising Physician Co-Signing Physician Notes Patient seen and examined later in the day after MUNIRA note. He is resting comfortably. He continues to use his trilogy. His air movement is decreased bilateral and he continues to experience some bronchospasm. Will continue current medical regiment. Subjective Attending: Dr. Metzger Patient seen and examined at bedside. He is extremely anxious and has developed a tremor. It is suspected this is from the high-dose steroids. Patient is receiving 80 mg of methylprednisolone every 8 hours IV. Unable to obtain arterial blood gas this morning secondary to tremor and suspected arterial spasm from multiple attempts. ABGs have been canceled. Patient reports he extremely dry and continuously requests water and ice chips. The patient denies any chest pain or tightness. He does report lightheadedness and a feeling of flushing. This is improved with an ice pack to the top of the scalp. Patient is been afebrile. No diarrhea. No nausea or vomiting. He continues with some shortness of breath but feels better overall since yesterday from a pulmonary perspective. Review of Systems Review of Systems: All systems reviewed & are unremarkable except as noted in Subjective Physical Exam Physical Exam: GENERAL : Moderate distress EYES: No icterus, gaze conjugate NOSE: No evidence of epistaxis MOUTH: No lesions or candidiasis NECK: Supple LUNGS: Patient is tachypneic with a respiratory rate of approximate 28 breaths/min. He has scattered bronchospasms throughout all lung parra. He has no appreciation of rhonchi. There is no paradoxical chest wall movement. HEART: Regular, rate is in the low 100s ABDOMEN: Soft, NT, ND, BS Present EXTREMITIES: No LE edema, pedal pulses intact NEURO: A&OX3 Results & Data Results & Data ([facility]) Vital Signs (Past 12 Hours) Vital Signs Temp Pulse Pulse Resp BP BP Pulse Ox 01/28/20 11:51 36.5 C 84 20 92/38 L 96 01/28/20 09:41 81 94/62 L 01/28/20 07:14 87 20 96 01/28/20 07:08 36.6 C 87 19 95/69 L 97 01/28/20 05:45 112 H 24 89/65 L 96 01/28/20 05:44 58 L 24 93 01/28/20 03:28 36.7 C 97 H 22 112/75 93 Laboratory Results 01/28/20 08:45 01/28/20 08:45 Diagnostic Findings No diagnostic imaging since 01/24/2020 PG Care Time/CCT Total # of Minutes Spent Total Time Spent with Patient: Total time spent is greater than 50% in coordination of care (as documented) at patient's floor/unit and/or counseling patient: 45 minutes at bedside over 3 visits with patient today Coding Level of Care Code 69296 Subseq Hosp Care Lvl 3 Diagnoses Chronic respiratory failure with hypoxia and hypercapnia J96.11; J96.12 Stage 4 very severe COPD by GOLD classification J44.9 COPD with acute exacerbation J44.1 Time Spent (min) 45
[2020-01-28 14:43] LABS: BUN Creatinine Ratio 71.2 (10-20); Calcium 8.2 mg/dl (8.5-10.1); Est GFR (African American) 48.7; Magnesium 2.6 mg/dl (1.8-2.4)
[2020-01-28 15:07] LABS: Phosphorus 4.5 mg/dl (2.5-4.9); Troponin I 0.63 ng/ml (0-0.045)
[2020-01-28] MEDS: ENOXAPARIN INJ 40 MG/0.4 ML SYR SQ SCH ×2 (16:35→16:43)
[2020-01-28] MEDS: CALCIUM CARBONATE 500 MG CHEWABLE TAB PO PRN ×2 (16:35→20:09)
--- NOTE | 2020-01-28 18:03 | Electrocardiogram Report ---
Test Reason : Blood Pressure : / mmHG Vent. Rate : 092 BPM Atrial Rate : 092 BPM P-R Int : 120 ms QRS Dur : 084 ms QT Int : 360 ms P-R-T Axes : 061 070 264 degrees QTc Int : 445 ms Poor data quality, interpretation may be adversely affected Sinus rhythm with Premature supraventricular complexes Abnormal ECG When compared with ECG of 24-JAN-2020 06:03, ST now depressed in Inferior leads ST more depressed Anterior leads Confirmed by Norman Hyde ([id number]) on 01/28/2020 6:02:43 PM Referred By: REFERRED SELF Confirmed By:William Hyde
[2020-01-28] MEDS: methylPREDNISolone 40 MG in SYRINGE 0 ML IV SCH (20:10)
--- NOTE | 2020-01-28 20:20 | Hospitalist Progress Note ---
Date of Service January 28, 2020 Assessment & Plan (1) Stage 4 very severe COPD by GOLD classification: management as outlined above (2) Acute on chronic respiratory failure with hypoxia and hypercapnia: due to CPD exacerbation ABG on admission with pH 7 and Pco2 97 S/P intubation with mechanical vent Extubated 01/23/2020 and has been stable Pulm on board and recommended to continue Augmentin for total 7 days, complete course on 01/29/20 Continue IV steroid for now and Roflumilast 500mcg QD Continue Theophylline and Nebulizer treatment with Budesonide and Perforomist and duoneb Continue Incruse-ellipta Continue to taper solumedrol Follow up with Dr Metzger in Pulm clinic Will need insurance coverage to get his meds (3) Systolic congestive heart failure with reduced left ventricular function, NYHA class 2: Echo on 01/22 showed left ventricular systolic function is severely reduced with ejection fraction 15 to 20%. Repeat echo on 01/23 showed left ventricular systolic function is mildly reduced with ejection fraction 45 (approx baseline) Possible due to stress induced cardiomyopathy due to hypoxia and respiratory failure Will hold Lasix and lisinopril since creatinine increased to 1.7 today Continue ASA, Plavix, Toprol was hold this morning due to bordeline BP (4) Acute metabolic encephalopathy: Due to respiratory failure with hypoxia resolved Elevated troponin : possible due to demand ischemia due to hypoxia respiratory failure no evidence of acute coronary event ECHO showed no wall motion abnormality Continue statin, plavix and aspirin (5) NOLBERTO (acute kidney injury): Creatinine 1.6 admission Creatinine increased to 1.7 today Will hold lisinopril and lasix Continue monitor BMP (6) Elevated lactic acid level: Chronic lactic acid elevation Mostly due to hypoxia from respiratory failure Continue monitor (7) History of tobacco use disorder: Relapsed Counseling on smoking cessation Admission and Anticipated Discharge Date Admission Date: January 22, 2020 Subjective Pt was seen and examined Lying in bed with no distress Pt said that that he feels ok He said that his breathing slightly better He was very anxious early Denies any chest pain, palpitation and fever Physical Exam Physical Exam: General- No acute distress Head- atraumatic Eyes- PERRL, EOMI, ENT- oropharynx clear Neck- supple, no JVD Lungs- +mild wheezing Heart- regular rhythm; no murmur Abdomen- normal bowel sounds, soft, nontender Extremities- no calf tenderness Neuro- alert, oriented x 3; PERRL, EOMI; no facial palsy; no dysarthria Skin- warm & dry Results & Data Results & Data ([facility]) Vital Signs (Past 12 Hours) Vital Signs Temp Pulse Pulse Resp BP BP Pulse Ox 01/28/20 19:19 36.4 C L 65 18 90/60 L 92 01/28/20 16:21 36.9 C 72 20 86/66 L 95 01/28/20 11:51 36.5 C 84 20 92/38 L 96 01/28/20 09:41 81 94/62 L
[2020-01-28] MEDS ORDERED: OLANZapine 10 MG/2.1 ML SDV IM PRN (21:15)
--- NOTE | 2020-01-28 21:17 | Communication Note ---
Date of Service: January 29, 2020 Patient transferred to ICU for persistent hypotension in early a.m despite gentle IVF and albumin administration given history of systolic dysfunction. Amoxicillin changed to IV Unasyn for possible aspiration pneumonia. Will relay to AM provider.
[2020-01-28] MEDS ORDERED: XOPENEX/ATROVENT 1.25mg/0.5MG NEB COMBO NEB STA (22:29)
[2020-01-28] MEDS ORDERED: LEVALBUTEROL 1.25MG/0.5ML NEB INH ONE (22:30)
[2020-01-28] MEDS ORDERED: IPRATROPIUM BROMIDE NEB SOLN 0.02% 2.5 ML VIAL INH ONE (22:30)
[2020-01-28] MEDS ORDERED: SODIUM CHLORIDE 0.9% 500 ML IV ONE (22:46)
--- NOTE | 2020-01-29 02:43 | Critical Care Progress Note ---
Date of Service January 29, 2020 Assessment & Plan (1) Acute GI bleeding: Reason Critically Ill: 59-year-old male presents to the ICU with hypotension, and found to have acute GI bleed Neuro - Encephalopathyresolved Cardiac - Shockpatient severely hypotensive, elevated lactic, now requiring vasopressors, currently on Levophed -CVC and A-line inserted emergently -Patient now reveals acute GI bleed, see management below; most likely hypovolemic in etiology -Received 1 L crystalloid, to receive 2 units RBCs -Cannot rule out septic shock at this time, however abdominal exam benign other than occult stool, blood cultures repeated and antibiotics broadened -Consider component of cardiogenic shock, last EF improved to 45%, troponin downtrending still to 0.63 Respiratory - Chronic respiratory failure with hypoxia and hypercapnia/severe COPDrespiratory status appears to be stable on home CPAP, patient has made clear that he would not like mechanical ventilation multiple times -AB.3 3/38/126/20, compensated metabolic acidosis -Chest x-ray unchanged from prior study -will hold on diuresis secondary to hypotension -Continue steroids and neb regimen -Continuous monitoring and pulse ox GI - Acute GI bleedpatient hypotensive, anemic, now passing melena -Started on Protonix drip and 2 units RBCs ordered -GI consulted, will follow up recommendations for scope -Holding anticoagulants RENAL/LYTES - AKIinitially improved but now up trended to 2.97 in the past 24 hours, likely ATN secondary to hypotension -Continue with IV fluid resuscitation -Continue levo drip for MAP management greater than 65 -Avoid nephrotoxins and renally adjust medications Lactic acidosislactate of 6 likely secondary to prolonged ischemia in the setting of hypotension -We will maintain maps greater than 65 and proceed with fluid resuscitation -pH 7.33, no indication for bicarb drip at this time -Trend - Strict I's and O's ENDO - No history of diabetes or thyroid disease ICU hyperglycemic protocol HEME - Acute blood loss anemiahemoglobin dropped from 12-7 in the past 24 hours, source GI bleed with confirmed stool Hemoccult positive -Patient receiving 2 units RBCs stat -We will recheck hemoglobin following blood transfusions -PTT and fibrinogen pending -Platelets within normal limits ID - Amoxicillin broadened to Unasyn Blood cultures repeated Procalcitonin pending Lactic acidosis most likely related to ischemia in the setting of prolonged hypotension LINES/IV ACCESS - CVC, PIV's, A-line DVT PROPHYLAXIS - SCDs, holding anticoagulation for GI bleed I have personally spent 85 minutes of critical care time in the direct management of this patient. This is a life/limb threatening event. This includes time spent evaluating patient, direct bedside care, chart review, placing orders, interpretation of diagnostic studies, discussion with consultants, patient, and family members, as well as other required patient management activities. This time is exclusive of all separately billable procedures, and teaching time and separate from and in addition to any other critical care service time. Thank you for allowing us to participate in the care of this patient. Please refer to my attending physician's documentation for any further recommendations. (2) NOLBERTO (acute kidney injury): (3) History of tobacco use disorder: (4) Stage 4 very severe COPD by GOLD classification: (5) Chronic respiratory failure with hypoxia and hypercapnia: (6) Systolic congestive heart failure with reduced left ventricular function, NYHA class 2: (7) Ischemic heart disease: (8) Non-ST elevated myocardial infarction (non-STEMI): (9) Elevated lactic acid level: (10) Hypotension: (11) Hypovolemic shock: Admission and Anticipated Discharge Date Admission Date: January 22, 2020 Supervising Physician Co-Signing Physician Notes Patient seen and examined. Discussed with critical care nurse practitioner as well as ICU nurse and on multidisciplinary rounds. Overnight events noted. Patient has a hemodynamically significant GI bleed and was transferred to the ICU. On my arrival this morning he remained hypotensive. We continued with his resuscitation with additional crystalloid as well as colloid, packed cells, and new arterial line. He appears to be responding appropriately and has had an increase in his blood pressure. GI consultation was obtained and the patient was started emergently on a Protonix bolus as well as drip. They plan on taking the patient for endoscopy as soon as he is res uscitated and hemodynamically stable. There were issues overnight with the patient not wanting to be intubated. Initially he said he did not want anything done and declined transfer to the ICU. He is now agreed for us to do what ever is necessary to sustain his life. He continues to use his home trilogy. He is manifesting oliguric renal failure as well with creatinine up to 3.5 currently. Lactate is also increased to 3.3. This is consistent with hypoperfusion. Hope is that his kidney function will improve with improvement in his blood pressure. Do not suspect the patient would want dialysis if his kidneys were to fail. His overall prognosis is quite guarded and the patient has placed several limits on which interventions would be appropriate for him. We will continue to discuss with him and respect his decision making. Subjective , 02 30: Presented to the patient's room following a code purple in which the patient was found to be hypotensive and experienced syncopal episode. After this episode he remained hypotensive but seemed asymptomatic. Initial plan was to transfer patient to ICU with likely insertion of central line and use of vasopressors however patient refused. He stated that he wanted to be DNR and would not like any aggressive measures taken. I spoke with the patient's about this conversation, and she confirmed that he had expressed these wishes to her as well. Patient was temporarily made DNR however upon reentering the room, he had seemingly changed his mind about his CODE STATUS and adamantly wanted to remain DNI, however wanted chest compressions and CPR in the event of cardiac arrest. He however, did not want to transfer to the ICU and did not want to pursue other aggressive measures. I had a long conversation with the patient about goals of care, and in conclusion he wanted to continue current medical management as is. Update 0300: Per conversation with hospitalist, patient is now agreeable to transfer to the ICU and receive central line, vasopressors if indicated. We will proceed with transfer to ICU as previously planned at this time. Update 0400: Patient is now arrived to the ICU. Blood pressure remains hypotensive and patient now passing melena. Central line and A-line inserted emergently and started on levo drip. 2 units RBCs to infuse. GI consulted. Review of Systems Review of Systems: Reports prior episode of dizziness earlier in the night while on the toilet, but no continued complaints of episodes of dizziness/syncope. Reports continued shortness of breath but says it is improved from prior and is comfortable on his home CPAP. Denies headache, sore throat, cough, congestion, chest pain, palpitations, abdominal pain. Physical Exam Constitutional: + obese and comfortable ENMT: external ear and nose normal, oropharynx normal Neck: trachea midline, no thyromegaly Respiratory: Patient mildly tachypneic with respiratory rate in the 20s on CPAP, lungs auscultated and diminished with coarse crackles auscultated bilaterally in the bases and mild bronchovascular wheezes. Cardiovascular: RRR, no murmur, no edema Heart Sounds: normal S1 and normal S2 Vessels: no JVD Extremities: no edema Gastrointestinal (Abdomen): normal bowel sounds, soft, nontender, no hepatosplenomegaly Skin: no rashes, warm and dry Neurologic: PERRL, EOMI, accommodation nl, no face palsy, no dysarthria Psychiatric: Orientation: oriented x 3 Mood: + anxious mood Results & Data Results & Data ([facility]) Vital Signs (Past 12 Hours) Vital Signs Temp Pulse Pulse Resp BP BP Pulse Ox 01/28/20 22:43 72 30 H 90 01/28/20 20:51 83 16 96 01/28/20 19:19 36.4 C L 65 18 90/60 L 92 01/28/20 16:21 36.9 C 72 20 86/66 L 95 Coding Level of Care Code Critical Care ea addt'l 30 min Diagnoses Acute GI bleeding K92.2 NOLBERTO (acute kidney injury) N17.9 History of tobacco use disorder Z87.891 Stage 4 very severe COPD by GOLD classification J44.9 Chronic respiratory failure with hypoxia and hypercapnia J96.11; J96.12 Systolic congestive heart failure with reduced left ventricular function, NYHA class 2 I50.20 Ischemic heart disease I25.9 Non-ST elevated myocardial infarction (non-STEMI) I21.4 Elevated lactic acid level R79.89 Hypotension I95.9 Hypovolemic shock R57.1 Time Spent (min) 95 Comment Total of 95 minutes critical care time including evaluation management stabilization of this critically ill patient.
[2020-01-29] MEDS ORDERED: AMPICILLIN/SULBACTAM SOD 3,000 MG in 0.9 % SODIUM CHLORIDE 100 ML IV STA (02:59)
[2020-01-29] MEDS ORDERED: ACETAMINOPHEN 325 MG TAB PO PRN (03:41)
[2020-01-29] MEDS ORDERED: traMADol HCL 50 MG TABLET PO PRN (03:41)
[2020-01-29] MEDS ORDERED: ICU PROTOCOL FOR HYPERGLYCEMIA PRN (03:41)
[2020-01-29] MEDS ORDERED: PROMETHAZINE HCL 6.25 MG in SODIUM CHLORIDE 0.9% 50 ML IV PRN (03:41)
[2020-01-29 04:06] LABS: Hematocrit (blood only) 22.2 % (42-52); Hemoglobin 7.4 g/dL (14.0-18.0); Mean Corpuscular Hemoglobin 30.8 pg (25-34); Mean Corpuscular Volume 92.5 fL (80-100); Mean Platelet Volume 9.9 fL (7.4-10.4); Nucleated RBC # (auto) 0.03 K/uL (0-0); Nucleated RBC % (auto) 0.1 %; Platelet Count 206 K/uL (130-400); RDW Coefficient of Variation 13.9 % (11.5-14.5); RDW Standard Deviation 46.4 fL (36.4-46.3); White Blood Count 21.44 K/uL (4.8-10.8)
[2020-01-29 04:20] LABS: INR 1.3 (0.9-1.1); Prothrombin Time 13.2 Seconds (9.0-12.0)
[2020-01-29 04:27] LABS: Albumin Level 2.7 gm/dl (3.4-5.0); BUN Creatinine Ratio 46.5 (10-20); Calcium 7.7 mg/dl (8.5-10.1); Creatinine Clr Calc Pharmacy 33.6 ml/min; Est GFR (African American) 25.7; Est GFR (Non-African American) 22.2; Magnesium 2.6 mg/dl (1.8-2.4); Potassium 5.1 mmol/L (3.5-5.1)
[2020-01-29 04:30] LABS: Albumin Globulin Ratio 1.6 (0.9-2); Bilirubin,Total 0.6 mg/dl (0.2-1); C Reactive Protein 0.31 mg/dl (0-0.29); Globulin 1.7 gm/dl (2.5-4.0); Phosphorus 8.1 mg/dl (2.5-4.9); Total Protein 4.4 gm/dl (6.4-8.2)
[2020-01-29] MEDS: SODIUM CHLORIDE 0.9% 1000ML 1,000 ML IV SCH ×2 (04:43→23:00)
[2020-01-29] MEDS: methylPREDNISolone 40 MG in SYRINGE 0 ML IV SCH ×3 (04:47→21:12)
[2020-01-29 04:52] LABS: Basophils # (auto) 0.01 K/uL (0-0.2); Echinocytes 1+; Immature Granulocytes # (auto) 0.59 K/uL (0.00-0.02); Immature Granulocytes % (auto) 2.8 %; Lymphocytes # (auto) 2.65 K/uL (1.2-3.4); Lymphocytes % (auto) 12.4 %; Mean Corpuscular Hgb Conc 33.3 g/dL (32-36); Monocytes % (auto) 4.2 %; Neutrophils # (auto) 17.29 K/uL (1.4-6.5); Neutrophils % (auto) 80.6 %
[2020-01-29] MEDS ORDERED: AMPICILLIN/SULBACTAM CONSULT ACTIVE PRN (04:54)
[2020-01-29] MEDS ORDERED: STAT IV Infusion **Titration per Protocol STA ×4 (04:57→22:57)
[2020-01-29] MEDS ORDERED: PANTOprazole 80 MG in DEXTROSE 5% 100 ML IV STA (05:41)
[2020-01-29] MEDS ORDERED: SODIUM CHLORIDE 0.9% 250 ML IV PRN ×4 (05:41→18:51)
[2020-01-29] MEDS ORDERED: HEPARIN SOD 5,000 UNIT/0.5 ML VIAL SQ SCH (06:00)
--- NOTE | 2020-01-29 06:17 | Procedure Note ---
Procedure Note Date of Service January 29, 2020 Note RightINTERNAL JUGULAR CENTRAL LINE PROCEDURE NOTE: Procedure: Internal Jugular Central Line Placement Attending: Dr. Dillan Metzger Provider: BENEDICTO Ontiveros Indication: Central Drug Administration, Poor Venous Access Anesthesia: Lidocaine 1% Line placed emergently in the setting of hypotension requiring multiple vasopressors with limited IV access. A time-out was completed verifying correct patient, procedure, site, positioning, and implants(s) or special equipment if applicable. Patients right neck was cleansed and draped in the typical sterile fashion using Chloraprep. The Internal Jugular Vein and Carotid Artery were identified using ultrasound. The superficial tissue was anesthetized using [] mL of 1% lidocaine without epinephrine under direct visualization with the ultrasound. After adequate anesthetization was achieved, the Internal Jugular vein was cannulated under direct ultrasound guidance using an introducer needle on a syringe. Good venous blood return was maintained prior to removal of syringe from introducer needle. Using Seldinger Technique, a guide wire was advanced through the introducer needle without resistance. The introducer needle was removed and ultrasound images were obtained of the guide wire within the Internal Jugular Vein and saved to the patients medical record. A small incision was made in penetrating fashion at the guide wire insertion site utilizing an 11 blade scalpel. The dil ator was advanced to the vessel without resistance. The dilator was exchanged for the triple lumen catheter which was advanced into the vessel without resistance. The guide wire was removed intact from the catheter without issue. Claves were placed on each catheter tip with confirmation of good blood flow from each lumen. Each port was easily flushed with sterile saline. The catheter was placed at 15 cm and sut[address] in place. BioPatch was applied to the catheter and a sterile Tegaderm dressing was applied over the catheter with careful attention to sterility. Patient tolerated procedure well. No immediate complications were met. Post procedure x-ray was completed, placement was appropriate and no pneumothorax was noted. Images obtained are saved for permanent record Procedural Ultrasound Guidance: Procedure Date: 01/29/2020 Indication: Central line insertion Attending: Dr. Dillan Metzger Provider: BENEDICTO Ontiveros Artery AND Vein visualized: Yes Compressible Vein: Yes Guidewire or Short Catheter seen in vein prior to dilation: Yes Line confirmed in Vein with ultrasound: Yes Images obtained are saved for permanent record. Coding CPT Codes Tubes, Drains, and Vasc Access - Tubes, Drains, and Vasc Access: [id number] Place catheter in vein superior or inferior vena cava ([id number]) Tubes, Drains, and Vasc Access - Tubes, Drains, and Vasc Access: [id number] Ultrasound Guidance For Vascular ([id number]) [facility] [place] Procedure Codes (Charges) Tubes, Drains, and Vasc Access Procedure 1: Tubes, Drains, and Vasc Access: [id number] Place catheter in vein superior or inferior vena cava Procedure 2: Tubes, Drains, and Vasc Access: [id number] Ultrasound Guidance For Vascular
--- NOTE | 2020-01-29 06:17 | Procedure Note ---
Procedure Note Date of Service January 29, 2020 Note ARTERIAL LINE PROCEDURE NOTE: Procedure: Arterial Line Placement Attending: Dr. Dillan Metzger Provider: BENEDICTO Ontiveros Indication: Monitoring on Pressors Anesthesia:Lidocaine 1% Line was placed emergently as the patient is hemodynamically unstable and hypotensive and requiring vasopressors. A time-out was completed verifying correct patient, procedure, site, positioning, and implant(s) or special equipment if applicable. Allens test was performed to ensure adequate perfusion. Patients left wrist was prepped and draped in the usual sterile fashion. Ultrasound guidance was used to aid needle placement. A 20g Arrow arterial line was introduced into the left radial artery. Catheter was threaded, and the needle was removed with appropriate blood return. Good waveform was observed. The patient tolerated the procedure well. Co nfirmation of placement with ultrasound. Blood Loss: Minimal Complications: None Procedural Ultrasound Guidance: Procedure Date: 01/29/2020 Indication: Left radial A-line Attending: Dr. Dillan Metzger Provider: BENEDICTO Ontiveros Artery Identified: YES Line confirmed in Artery with ultrasound: Yes Complications: NONE Patient tolerated procedure: WELL Coding CPT Codes Tubes, Drains, and Vasc Access - Tubes, Drains, and Vasc Access: [id number] Place Catheter In Artery ([id number]) Tubes, Drains, and Vasc Access - Tubes, Drains, and Vasc Access: [id number] Ultrasound Guidance For Vascular ([id number]) [facility] [place] Procedure Codes (Charges) Tubes, Drains, and Vasc Access Procedure 1: Tubes, Drains, and Vasc Access: [id number] Place Catheter In Artery Procedure 2: Tubes, Drains, and Vasc Access: [id number] Ultrasound Guidance For Vascular
[2020-01-29] MEDS ORDERED: PIPERACILL/TAZOBAC CONSULT ACTIVE PRN (06:33)
[2020-01-29 06:42] LABS: iSTAT Art Bld Gas pCO2 Correct 38 mmHg (35-46); iSTAT Art Bld Gas pH Corrected 7.337 (7.35-7.45); iSTAT Arterial Blood Gas HCO3 20 meg/L (19-24); iSTAT Arterial Blood Gas pCO2 38 mmHg (35-46); iSTAT Arterial Blood Gas pH 7.33 (7.35-7.45); iSTAT Arterial Blood Gas pO2 126 mmHg (80-95); iSTAT Arterial Blood Gas pO2 C 125; iSTAT Carbon Dioxide 22 mmol/L (24-31); iSTAT Hematocrit 18 % (42-52); iSTAT Hemoglobin 6.1 g/dl (14.0-18.0); iSTAT Potassium 5.9 mmol/L (3.3-5.0); iSTAT Site Art Line; iSTAT Sodium 128 mmol/L (135-144)
[2020-01-29] MEDS ORDERED: PIPERACILLIN/TAZOBACTAM 3.375 GM in DEXTROSE 5% 100 ML IV SCH (06:45)
[2020-01-29] MEDS: NOREPINEPHRINE BIT INJ 8 MG in DEXTROSE 5% 500 ML IV SCH (06:45)
[2020-01-29 07:34] LABS: Fibrinogen 141 mg/dl (184-400); Partial Thromboplastin Ratio 0.7; Partial Thromboplastin Time 20.5 Seconds (21.0-31.0)
[2020-01-29] MEDS: FORMOTEROL 20 MCG/2 ML VIAL NEB SCH ×2 (07:50→19:20)
[2020-01-29] MEDS: BUDESONIDE 0.5 MG/2 ML VIAL (PULMICORT) NEB SCH ×2 (07:50→19:20)
[2020-01-29] MEDS: SODIUM CHLOR 7% 4 ML NEB NEB SCH ×2 (07:50→20:14)
--- NOTE | 2020-01-29 08:01 | XRay Report ---
XR chest 1V portable CLINICAL HISTORY: cvc insertion COMPARISON STUDY: Chest radiograph January 28, 2020. FINDINGS: There is no pneumothorax following placement of a right internal jugular central line. Cath eter tip projects over the SVC. Lung bases were not included on this examination. There is no evidenc e for pulmonary edema. No consolidation is identified within visualized portions of the lungs. IMPRESSION: No pneumothorax following placement of a right internal jugular central line. ACT 112: Negative or not required by law. Electronically signed by: Marcelino Antunez M.D. 01/29/2020 7:59 AM
[2020-01-29] MEDS: PANTOprazole 40 MG in DEXTROSE 5% 100 ML IV SCH ×4 (08:03→22:14)
[2020-01-29] MEDS: ALBUMIN 25% 50 ML IV SCH ×4 (08:15→09:49)
--- NOTE | 2020-01-29 08:21 | XRay Report ---
XR chest 1V portable CLINICAL HISTORY: Shortness of breath COMPARISON STUDY: 01/24/2020 FINDINGS: There is severe pulmonary emphysema. There is no focal pulmonary consolidation. There is no failure. There is enlargement of the central pulmonary arteries suggesting pulmonary arterial hypert ension.[ IMPRESSION: Pulmonary emphysema. No acute findings. ACT 112: Negative or not required by law. Electronically signed by: Kyle Liang M.D. 01/29/2020 8:20 AM
[2020-01-29] MEDS ORDERED: SODIUM BICARB 8.4% INJ 50 MEQ/50 ML SYR IV ONE (08:31)
--- NOTE | 2020-01-29 08:42 | Communication Note ---
Date of Service: January 29, 2020 GI note: Received consult for GI bleed on this pt. He was initially admitted for COPD. Overnight he developed hypotension, syncope, noted Hgb to drop from 12-7, and severely hypotensive 50s/30s and is passing melanotic stools. Artur ramon called this AM. Pt currently in ICU getting resuscitated, planning for multiple blood transfusion, BP 90s/50s on Levophed, PPI bolus and gtt initiated. At the present time, pt needs to be more stabilized and volume resuscitated before he could tolerated any endoscopic procedures. We will follow along
[2020-01-29 10:25] LABS: Basophils # (auto) 0.01 K/uL (0-0.2); Basophils % (auto) 0.1 %; Hematocrit (blood only) 29.9 % (42-52); Hemoglobin 9.6 g/dL (14.0-18.0); Immature Granulocytes # (auto) 0.34 K/uL (0.00-0.02); Immature Granulocytes % (auto) 2.5 %; Lymphocytes # (auto) 1.11 K/uL (1.2-3.4); Mean Corpuscular Hemoglobin 28.5 pg (25-34); Mean Corpuscular Volume 88.7 fL (80-100); Monocytes # (auto) 0.72 K/uL (0.11-0.59); Monocytes % (auto) 5.2 %; Neutrophils # (auto) 11.61 K/uL (1.4-6.5); Neutrophils % (auto) 84.2 %; Nucleated RBC # (auto) 0.04 K/uL (0-0); Nucleated RBC % (auto) 0.3 %; Platelet Count 129 K/uL (130-400); RDW Coefficient of Variation 14.2 % (11.5-14.5); RDW Standard Deviation 46.2 fL (36.4-46.3); Red Blood Count 3.37 M/uL (4.7-6.1); White Blood Count 13.79 K/uL (4.8-10.8)
[2020-01-29] MEDS: guaiFENesin 600 MG TABCR PO SCH ×2 (10:26→19:50)
[2020-01-29] MEDS: ROFLUMILAST 500 MCG TAB PO SCH (10:26)
[2020-01-29] MEDS: CLOPIDOGREL BISULFATE 75 MG TAB PO SCH (10:26)
[2020-01-29] MEDS: ASPIRIN 81 MG ECTAB PO SCH (10:26)
[2020-01-29] MEDS: THEOPHYLLINE 300MG EXTENDED REL TAB PO SCH (10:26)
[2020-01-29] MEDS: ESCITALOPRAM OXALATE 20 MG TAB PO SCH (10:26)
[2020-01-29] MEDS ORDERED: CALCIUM CARBONATE 500 MG CHEWABLE TAB PO ONE (10:31)
[2020-01-29] MEDS ORDERED: CALCIUM CHLORIDE 10% 1,000 MG in SODIUM CHLORIDE 0.9% 50 ML IV STA (10:35)
[2020-01-29 10:36] LABS: Mean Corpuscular Hgb Conc 32.1 g/dL (32-36)
[2020-01-29 10:38] LABS: Fibrinogen 199 mg/dl (184-400); INR 1.3 (0.9-1.1); Partial Thromboplastin Time 27.9 Seconds (21.0-31.0); Prothrombin Time 13.8 Seconds (9.0-12.0)
--- NOTE | 2020-01-29 10:41 | Gastrointestinal Consultation ---
Date of Consultation January 29, 2020 Assessment & Plan (1) Acute GI bleeding: (2) Hypovolemic shock: (3) Chronic respiratory failure with hypoxia and hypercapnia: Pt is a 59 y/o male w severe COPD, seen for melena. This AM was having hypovolemic shock, resuscitated w PRBC, Albumin, Cryoglobulin transfusions. Pressors held and BP holding up 100s/50s. Has melena per ICU team. - ICU planning on intubating pt - We will perform bedside EGD following intubation - Keep PPI gtt - Monitor blood ct closely. Supervising Physician Co-Signing Physician Notes I performed a history and physical examination of the patient today, including specifically on physical exam - soft abdomen. I have discussed the patient's management with the advanced practitioner. Please refer to the nurse practitioner's note for the documented findings and plan of care. Patient with new melena and significant drop in H/H, now is hemodynamically unstable with acute respiratory failure. He will benefit from EGD only after adequate resuscitation and endotracheal intubation. History of Present Illness Reason for Consultation: GI bleed Requesting Physician: Dr. Elana Saenz Attending Physician: Dr. Johan Rudd History of Present Illness PT is a 59 y/o male, initially admitted with COPD, who is currently seen for GI bleed. He developed hypotension, syncope, tachycardia overnight and noted to have melanotic stools. Hgb dropped 12 ->7. He is currently in ICU unit, oscar ramon called this AM for BP 50s/30s. He has since been resuscitated w Albumin, 4U PRBC, 2U Cryoglobulin. Levophen is held now. BP 100s/59, HR 83. . On exam, he is on CPAP, + tachypnea RR 30s. Able to converse, denies abd pain, n/v. Allergies Allergy/AdvReac Type Severity Reaction Status Date / Time No Known Drug Allergies Allergy Verified 01/22/20 09:48 Home Medications Home Medications Medication Instructions Recorded Confirmed Type cholecalciferol (vitamin D3) 1,000 unit PO QAM 01/17/18 01/22/20 History [Vitamin D3] ipratropium 0.5 mg-albuterol 3 mg 3 ml INHALATION Q6H PRN #360 ml 06/08/19 01/22/20 Rx (2.5 mg base)/3 mL nebulization soln bupropion HCl 150 mg 24 hr tablet, 300 mg PO QAM tab 06/09/19 01/22/20 History extended release escitalopram oxalate 10 mg tablet 20 mg PO QAM tab 06/09/19 01/22/20 History clopidogrel 75 mg PO QAM 30 Days #30 tab 08/05/19 01/22/20 Rx furosemide 40 mg PO QAM 30 Days #30 tab 08/05/19 01/22/20 Rx lisinopril [Zestril] 40 mg PO QAM 30 Days #30 tab 08/05/19 01/22/20 Rx metoprolol succinate 25 mg PO QAM 30 Days #30 tab 08/05/19 01/22/20 Rx tiotropium bromide [Spiriva 2 puff INHALATION QDL #4 gm 08/05/19 01/22/20 Rx Respimat] Non Invasive Ventilator #1 ea 11/04/19 12/23/19 Rx rosuvastatin 20 mg tablet 20 mg PO DAILY 11/04/19 01/22/20 History prednisone 10 mg tablet 10 mg PO DAILY #90 tab 11/05/19 01/22/20 Rx albuterol sulfate 90 mcg/actuation 2 puff INHALATION Q4 PRN #3 inhaler 01/20/20 01/22/20 Rx aerosol inhaler fluticasone propionate 230 2 puff INHALATION Q12 #3 inhaler 01/20/20 01/22/20 Rx mcg-salmeterol 21 mcg/actuation HFA inhaler aspirin 81 mg PO QAM 01/22/20 01/22/20 History roflumilast 500 mcg tablet 500 mcg PO QAM 90 Days #90 tab 01/22/20 01/22/20 Rx Patient History Medical History Anxiety Asthma Chronic back pain Chronic obstructive pulmonary disease Chronic respiratory failure with hypoxia and hypercapnia COPD exacerbation Depression Diverticular disease On home oxygen therapy Sleep apnea Stage 4 very severe COPD by GOLD classification Surgical History History of bowel resection DIVERTICULITIS History of herniorrhaphy X 5 Family History Other Hypertension Social History Smoking Status: Current every day smoker Tobacco Type: Cigarettes Cigarettes Per Day: Per chart; Second Hand Exposure: No; Do You Dip or Chew Tobacco: No; Hx Alcohol Use: No (per H&P) Hx Substance Use: No (per H&P) Preferred Language: Martiniquais Communication Ability: Unable Communication Ability Comment: Sedated and intubated [employer]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: No Beliefs That Will Affect Care: None marital status: Current Living Situation: Spouse Current Living Situation Comment: [facility] Other Information That Helps Us Care for You: No Feels Safe at Home: Yes Assistive Devices: Oxygen - Continuous Review of Systems Review of Systems: All systems reviewed & are unremarkable except as noted in HPI & below Physical Exam Constitutional: + ill appearing, cooperative and comfortable Eyes: PERRL, conjunctivae normal, anicteric sclerae ENMT: external ear and nose normal, oropharynx normal Respiratory: + labored breathing and + uses accessory muscles Auscultation: + diminished lung sounds Cardiovascular: RRR, no murmur, no edema Gastrointestinal (Abdomen): Inspection/Auscultation: + hypoactive bowel sounds Percussion/Palpation: abdomen soft; abdomen nontender Skin: no rashes, warm and dry Psychiatric: A+Ox3, euthymic affect Lymphatic: + lymphedema (generalized edema on legs) Results & Data ([facility]) Vital Signs (Past 12 Hours) Vital Signs Temp Pulse Pulse Resp BP Pulse Ox 01/29/20 10:07 36.1 C L 83 30 H 108/59 L 100 01/29/20 10:03 36.0 C L 83 27 H 105/52 L 99 01/29/20 10:02 36.0 C L 82 29 H 107/61 100 01/29/20 09:57 36.0 C L 82 24 100/58 L 100 01/29/20 09:31 35.8 C L 84 23 80/57 L 100 01/29/20 09:30 36.0 C L 83 26 H 93/55 L 100 01/29/20 09:29 35.9 C L 84 25 H 82/56 L 100 01/29/20 09:24 35.6 C L 82 27 H 77/45 L 100 01/29/20 09:18 36.0 C L 82 26 H 101/59 L 100 01/29/20 09:17 35.4 C L 85 25 H 84/59 L 100 01/29/20 09:15 35.7 C L 81 26 H 77/45 L 100 01/29/20 09:09 35.4 C L 82 25 H 84/52 L 100 01/29/20 08:45 35.6 C L 86 20 77/45 L 100 01/29/20 08:44 35.6 C L 83 26 H 77/42 L 100 01/29/20 08:40 35.4 C L 82 25 H 84/52 L 100 01/29/20 08:35 35.4 C L 85 26 H 104/56 L 100 01/29/20 08:20 35.4 C L 85 25 H 93/46 L 100 01/29/20 08:19 35.4 C L 86 25 H 93/46 L 100 01/29/20 07:53 91 H 24 01/29/20 06:40 79 145/135 H 01/29/20 06:30 78 28 H 01/29/20 06:09 80 25 H 73/43 L 01/29/20 06:07 80 25 H 84/34 L 01/29/20 06:00 80 24 01/29/20 05:58 82 26 H 01/29/20 05:56 84 28 H 43/34 L 01/29/20 05:30 81 24 01/29/20 05:09 84 21 93/79 L 01/29/20 05:00 90 20 70 L 01/29/20 04:54 81 24 59/35 L 100 01/29/20 04:49 83 25 H 86/48 L 01/29/20 04:42 81 23 65/51 L 100 01/29/20 04:39 83 25 H 70/48 L 100 01/29/20 04:34 93 H 21 56/47 L 100 01/29/20 04:32 95 H 21 100 01/29/20 04:31 97 H 16 60/44 L 90 01/29/20 04:29 96 H 24 135/101 H 01/29/20 04:24 86 25 H 175/166 H 100 01/29/20 04:17 90 20 167/109 H 01/29/20 04:00 90 28 H 01/29/20 00:00 110 H 01/28/20 22:43 72 30 H 90
[2020-01-29 10:48] LABS: Albumin Globulin Ratio 1.9 (0.9-2); Albumin Level 3.2 gm/dl (3.4-5.0); BUN Creatinine Ratio 42.9 (10-20); Bilirubin,Total 0.8 mg/dl (0.2-1); Calcium 7.7 mg/dl (8.5-10.1); Creatinine Clr Calc Pharmacy 28.2 ml/min; Est GFR (African American) 20.8; Globulin 1.7 gm/dl (2.5-4.0); Potassium 5.6 mmol/L (3.5-5.1); Total Protein 4.9 gm/dl (6.4-8.2)
--- NOTE | 2020-01-29 10:50 | Procedure Note ---
Procedure Note Date of Service January 29, 2020 ARTERIAL LINE PROCEDURE NOTE: Procedure: Arterial Line Placement Provider: Apollo Metzger MD Indication: Monitoring on Pressors Anesthesia: 3 mL lidocaine 1% Procedure was urgent. Patient was hemodynamically unstable. Verbal consent was obtained from the patient with the nurse at the bedside A time-out was completed verifying correct patient, procedure, site, positioning, and implant(s) or special equipment if applicable. Patient had a previously placed left radial arterial line which would not draw and was not giving an accurate waveform. I elected to proceed with a femoral arterial line to ensure appropriate blood pressure monitoring. The patient's right groin was prepped and draped in normal sterile fashion. Chlorhexidine was used and allowed to completely dry. A sterile field was established. The artery was identified. It was weakly pulsatile and adjacent to the vein. 3 cc of 1% lidocaine were used to anesthetize the subcutaneous tissues. Under direct ultrasound visualization, an 18-gauge needle was used to cannulate the right femoral artery. Due to the urgent and emergent nature of the procedure, images were not saved to the medical record. Pulsatile blood flow was returned. A wire was passed through the needle into the vessel without difficulty. A small skin crystal was made with a scalpel and a 20 cm catheter was threaded over the wire into the artery. The wire was removed. An arterial waveform was transduced. A Biopatch was applied and a sterile dressing attached to the patient. The patient tolerated the procedure well with an estimated blood loss of less than 5 mL's Blood Loss: Minimal Complications: None Coding CPT Codes Tubes, Drains, and Vasc Access - Tubes, Drains, and Vasc Access: [id number] Place Catheter In Artery ([id number]) Tubes, Drains, and Vasc Access - Tubes, Drains, and Vasc Access: [id number] Ultrasound Guidance For Vascular ([id number]) [facility] Procedure Codes (Charges) Tubes, Drains, and Vasc Access Procedure 1: Tubes, Drains, and Vasc Access: [id number] Place Catheter In Artery Procedure 2: Tubes, Drains, and Vasc Access: [id number] Ultrasound Guidance For Vascular
[2020-01-29] MEDS: INSULIN ASPART 100 UNITS/ML 3 ML PEN SC SCH ×4 (11:18→21:12)
[2020-01-29] MEDS ORDERED: AMPICILLIN/SULBACTAM SOD 3,000 MG in 0.9 % SODIUM CHLORIDE 100 ML IV SCH (12:00)
[2020-01-29] MEDS: UMECLIDINIUM BROMIDE 62.5MCG/BLISTER 7 PUFFS/INHALER INH SCH (12:19)
--- NOTE | 2020-01-29 12:44 | Electrocardiogram Report ---
Test Reason : Blood Pressure : / mmHG Vent. Rate : 088 BPM Atrial Rate : 088 BPM P-R Int : 126 ms QRS Dur : 096 ms QT Int : 362 ms P-R-T Axes : 077 063 259 degrees QTc Int : 438 ms Sinus rhythm with Premature atrial complexes Abnormal ECG When compared with ECG of 28-JAN-2020 16:14, No significant change was found Confirmed by Norman Hyde ([id number]) on 01/29/2020 12:44:06 PM Referred By: REFERRED SELF Confirmed By:William Hyde
[2020-01-29] MEDS ORDERED: METOCLOPRAMIDE HCL INJ 5 MG/ML 2 ML VIAL IV STA (13:24)
[2020-01-29] MEDS ORDERED: METOCLOPRAMIDE HCL INJ 5 MG/ML 2 ML VIAL ONE (13:25)
--- NOTE | 2020-01-29 14:21 | Pharmacy Report ---
Pharmacy Glycemic Short Note 2 - Date of Service January 29, 2020 - Glycemic Short BSG Results (Last 24 hours): 01/28/20 01/28/20 01/28/20 14:21 16:24 20:52 Glucose 128 H POC Glucose 162 H 127 H 01/28/20 01/29/20 01/29/20 22:29 03:47 10:13 Glucose 80 105 H POC Glucose 260 H OUTPATIENT ANTIDIABETIC REGIMEN: * N/A * A1c = 5.9% (01/23/20) ASSESSMENT: 01/28: * Patient transferred back to the ICU this morning with hypotension, suspected acute GI bleed, norepinephrine titrated off * Fasting this AM 80 mg/dL will continue without basal * Methylprenisolone was titrated down to 40 mg IV q8H- carb ratio was loosened however patient is now NPO 01/27: * Oliver required 4 units of insulin yesterday - all bolus * BSGs were [phone] mg/dL - excellent control * He continues on methylprednisolone 80 mg IV Q8H * Fasting BSG this AM was 155 mg/dL - above goal * Lunchtime BSG was 145 mg/dL * Tightened CR this morning 01/25: * Pt received 8 units of insulin yesterday with all BSGs within goal range * Fasting this morning 141- will continue to hold basal, continue to monitor * Patient continues of methylpred 80 mg q8H, will continue loose carb coverage if BSGs continue to be within range will consider d/c and keeping correction factor only PLAN FOR INPATIENT GLYCEMIC CONTROL: * Bolus insulin - loosened CR * NovoLog per scale ACHS * Goal Range: Low 110 mg/dL - High 140 mg/dL * Correction Factor: 25 mg/dL/unit * Nutritional / Prandial insulin: 1 unit for every 20 grams CHO PLAN FOR DISCHARGE: * HbA1c = 5.9%. Patient will not require any antidiabetic medications upon discharge.
[2020-01-29] MEDS ORDERED: SODIUM BICARB 8.4% INJ 50 MEQ/50 ML SYR IV STA (15:00)
--- NOTE | 2020-01-29 15:27 | Pharmacy Report ---
Pharmacy Glycemic Short Note 2 - Date of Service January 29, 2020 - Glycemic Short BSG Results (Last 24 hours): 01/28/20 01/28/20 01/28/20 14:21 16:24 20:52 Glucose 128 H POC Glucose 162 H 127 H 01/28/20 01/29/20 01/29/20 22:29 03:47 10:13 Glucose 80 105 H POC Glucose 260 H OUTPATIENT ANTIDIABETIC REGIMEN: * N/A * A1c = 5.9% (01/23/20) ASSESSMENT: 01/27: * Oliver required 4 units of insulin yesterday - all bolus * BSGs were [phone] mg/dL - excellent control * He continues on methylprednisolone 80 mg IV Q8H * Fasting BSG this AM was 155 mg/dL - above goal * Lunchtime BSG was 145 mg/dL * Tightened CR this morning 01/25: * Pt received 8 units of insulin yesterday with all BSGs within goal range * Fasting this morning 141- will continue to hold basal, continue to monitor * Patient continues of methylpred 80 mg q8H, will continue loose carb coverage if BSGs continue to be within range will consider d/c and keeping correction factor only PLAN FOR INPATIENT GLYCEMIC CONTROL: * Bolus insulin - tightened CR * NovoLog per scale ACHS * Goal Range: Low 110 mg/dL - High 140 mg/dL * Correction Factor: 25 mg/dL/unit * Nutritional / Prandial insulin: 1 unit for every 15 grams CHO PLAN FOR DISCHARGE: * HbA1c = 5.9%. Patient will not require any antidiabetic medications upon discharge.
[2020-01-29] MEDS ORDERED: SUCCINYLCHOLINE CHLORIDE 20 MG/ML 10 ML VIAL IV ONE (15:50)
[2020-01-29] MEDS ORDERED: PROPOFOL IV EMULSION 10 MG/ML 20 ML VIAL IV ONE (15:50)
[2020-01-29] MEDS ORDERED: LIDOCAINE HCL 2% 2 ML VIAL/AMP(20MG/ML) INFIL ONE (15:50)
[2020-01-29] MEDS ORDERED: MIDAZOLAM HCL 1 MG/ML 2ML VIAL ONE ×2 (15:50→22:01)
[2020-01-29] MEDS ORDERED: CISATRACURIUM BESYLATE IV SOLN 2 MG/ML 10 ML VIAL IV ONE (15:50)
[2020-01-29] MEDS ORDERED: ETOMIDATE 2 MG/ML 20 ML VIAL IV ONE (15:50)
[2020-01-29] MEDS ORDERED: DEXTROSE 50% 50 ML SYRINGE IV ONE (16:15)
[2020-01-29] MEDS ORDERED: INSULIN HUMAN REGULAR PER UNIT 10 UNITS in SYRINGE 9.9 ML IV ONE (16:20)
[2020-01-29] MEDS ORDERED: CALCIUM CHLORIDE 10% 1,000 MG in SODIUM CHLORIDE 0.9% 50 ML IV ONE (16:30)
--- NOTE | 2020-01-29 16:57 | Anesthesiology Consultation ---
Date of Service January 29, 2020 Assessment & Plan Chart Review Chart Review: Acceptable Risk for Surgery and Patient NOT seen in Pre Admission Testing Consults Requested none ASA ASA4 Proposed Anesthesia Anesthesia Type: General Risk / Benefits Reviewed With: PT / POA / Parent / Guardian, Accepts Plan and Informed Consent Obtained History Surgery Operation Date: 01/29/20 11:10 Proposed Procedures p Esophagogastroduodenoscopy - Johan Rudd MD Height/Weight Height: 6 ft Weight: 102.4 kg Allergies Allergy/AdvReac Type Severity Reaction Status Date / Time No Known Drug Allergies Allergy Verified 01/22/20 09:48 Medications Home Medications Medication Instructions Recorded Confirmed Last Taken cholecalciferol (vitamin D3) 1,000 unit PO QAM 01/17/18 01/22/20 01/21/20 [Vitamin D3] ipratropium 0.5 mg-albuterol 3 mg 3 ml INHALATION Q6H PRN #360 ml 06/08/19 01/22/20 07/31/19 (2.5 mg base)/3 mL nebulization soln bupropion HCl 150 mg 24 hr tablet, 300 mg PO QAM tab 06/09/19 01/22/20 01/21/20 extended release escitalopram oxalate 10 mg tablet 20 mg PO QAM tab 06/09/19 01/22/20 01/21/20 clopidogrel 75 mg PO QAM 30 Days #30 tab 08/05/19 01/22/20 01/21/20 furosemide 40 mg PO QAM 30 Days #30 tab 08/05/19 01/22/20 01/21/20 lisinopril [Zestril] 40 mg PO QAM 30 Days #30 tab 08/05/19 01/22/20 01/21/20 metoprolol succinate 25 mg PO QAM 30 Days #30 tab 08/05/19 01/22/20 01/21/20 tiotropium bromide [Spiriva 2 puff INHALATION QDL #4 gm 08/05/19 01/22/20 01/21/20 Respimat] Non Invasive Ventilator #1 ea 11/04/19 12/23/19 Unknown rosuvastatin 20 mg tablet 20 mg PO DAILY 11/04/19 01/22/20 01/21/20 prednisone 10 mg tablet 10 mg PO DAILY #90 tab 11/05/19 01/22/2020 albuterol sulfate 90 mcg/actuation 2 puff INHALATION Q4 PRN #3 inhaler 01/20/20 01/22/20 Unknown aerosol inhaler fluticasone propionate 230 2 puff INHALATION Q12 #3 inhaler 01/20/20 01/22/20 01/21/20 mcg-salmeterol 21 mcg/actuation HFA inhaler aspirin 81 mg PO QAM 01/22/20 01/22/20 01/21/20 roflumilast 500 mcg tablet 500 mcg PO QAM 90 Days #90 tab 01/22/20 01/22/20 01/21/20 Active Medications Generic Name Dose Route Start Last Admin Trade Name Freq PRN Reason Stop Dose Admin Aspirin 81 mg 01/23/20 09:00 01/29/20 10:26 Aspirin 81 Mg Ectab PO 02/22/20 08:59 Not Given QAM JUDD Budesonide 0.5 mg 01/25/20 10:30 01/29/20 07:50 Budesonide 0.5 Mg/2 Ml Vial (Pulmicort) [facility] 02/24/20 10:29 0.5 mg BIDR JUDD Administration Clopidogrel Bisulfate 75 mg 01/23/20 09:00 01/29/20 10:26 Clopidogrel Bisulfate 75 Mg Tab PO 02/22/20 08:59 Not Given QAM JUDD Escitalopram Oxalate 20 mg 01/23/20 09:00 01/29/20 10:26 Escitalopram Oxalate 20 Mg Tab PO 02/22/20 08:59 Not Given QAM JUDD Formoterol Fumarate 20 mcg 01/25/20 10:00 01/29/20 07:50 Formoterol 20 Mcg/2 Ml Vial NEB 02/24/20 09:59 20 mcg BIDR JUDD Administration Furosemide 40 mg 01/23/20 09:00 01/28/20 08:56 Furosemide 40 Mg Tab PO 02/22/20 08:59 40 mg QAM JUDD Administration Guaifenesin 1,200 mg 01/27/20 21:00 01/29/20 10:26 Guaifenesin 600 Mg Tabcr PO 02/26/20 20:59 Not Given Q12 JUDD Methylprednisolone 40 mg/ 0.64 mls @ 1.5 mls/min 01/28/20 20:00 10/09/20 12:20 Syringe IV 02/27/20 19:59 1.5 mls/min Q8H JUDD Administration Promethazine HCl 6.25 mg/ 50.25 mls @ 201 mls/hr 01/29/20 03:41 01/29/20 06:30 Sodium Chloride IV 02/28/20 03:40 Infused Q6H PRN Infusion Nausea And Vomiting Sodium Chloride 1,000 mls @ 50 mls/hr 01/29/20 03:41 01/29/20 16:29 Nss 1000ml IV 02/28/20 03:40 0 mls/hr .Q20H JUDD Infusion Norepinephrine Bitartrate 8 mg 508 mls @ 0 mls/hr 01/29/20 05:00 01/29/20 16:51 / Dextrose IV 02/28/20 04:59 0 mcg/kg/min .Q0M JUDD 0 mls/hr Titration Protocol 0 MCG/KG/MIN Pantoprazole Sodium 40 mg/ 100 mls @ 20 mls/hr 01/29/20 07:45 01/29/20 16:52 Dextrose IV 02/28/20 07:44 8 mg/hr Q5H JUDD 20 mls/hr Administration 8 MG/HR Insulin Aspart 0 units 01/24/20 07:30 01/29/20 12:20 Insulin Aspart 100 Units/Ml 3 Ml Pen SC 02/23/20 07:29 Not Given ACHS JUDD Lisinopril 40 mg 01/23/20 09:00 01/28/20 08:53 Lisinopril 40 Mg Tab PO 02/22/20 08:59 40 mg QAM JUDD Administration Miscellaneous 15 - 30 gm 01/22/20 12:08 01/23/20 10:48 Carbohydrates For Hypoglycemia PO 02/21/20 12:07 15 gm UD PRN Administration Hypoglycemia Protocol Roflumilast 500 mcg 01/23/20 09:00 01/29/20 10:26 Roflumilast 500 Mcg Tab PO 02/22/20 08:59 Not Given QAM JUDD Sodium Chloride 4 ml 01/27/20 19:00 01/29/20 07:50 Sodium Chlor 7% 4 Ml Neb NEB 02/26/20 18:59 4 ml BIDR JUDD Administration Theophylline 300 mg 01/25/20 10:15 01/29/20 10:26 Theophylline 300mg Extended Rel Tab PO 02/24/20 10:14 Not Given QAM JUDD Umeclidinium [place] 1 puffs 01/23/20 11:30 01/29/20 12:19 Umeclidinium [place] 62.5mcg/Blister 7 Puffs/Inhaler INH 02/22/20 11:29 Not Given QDL JUDD NPO Date Last Intake of Fluids: 01/28/20 Time Last Intake of Fluids: 12:00 Date Last Intake of Solids: 01/28/20 Time Last Intake of Solids: 12:00 Past Medical History Medical History Anxiety Asthma Chronic back pain Chronic obstructive pulmonary disease Chronic respiratory failure with hypoxia and hypercapnia COPD exacerbation Depression Diverticular disease On home oxygen therapy Sleep apnea Stage 4 very severe COPD by GOLD classification Exercise / Class Metabolic Activity III < 4 Walking/Shop/Light housework Past Family History Family History Other Hypertension Past Surgical History Surgical History History of bowel resection DIVERTICULITIS History of herniorrhaphy X 5 Past Anesthesia History No Hx of Anesthesia Complications and No Family Hx of Anesthesia Complications History of PONV No Hx of PONV and No Hx of Motion Sickness Social History Smoking Status: Current every day smoker tobacco type: cigarettes Smoking cigarettes per day: Per chart Do You Dip or Chew Tobacco: No Hx Alcohol Use: No (per H&P) Hx Substance Use: No (per H&P) substance use type: marijuana Last Used Substance: Days (ago) Physical Exam Vital Signs Last Vital Signs Temp 36.9 C 01/29/20 16:40 Pulse 101 H 01/29/20 16:40 Resp 23 01/29/20 16:40 BP 125/84 01/29/20 16:40 Pulse Ox 97 01/29/20 16:40 Constitutional + obese ENMT Mouth: no dentition abnormality Thyromental Distance: > or= 3.5 Finger Breadths Mallampati Class: III Neck normal visual inspection, trachea midline and + facial hair; neck extension not limited Respiratory + respiratory distress, + uses accessory muscles and + tachypneic Auscultation: + diminished lung sounds and + crackles Cardiovascular Rate/Rhythm: regular rate and regular rhythm Heart Sounds: no murmur Vessels: no carotid bruit Musculoskeletal Spine: normal cervical ROM Extremities: extremities normal to inspection Neurologic moves all extremities Motor/Sensory: no sensory deficit Psychiatric Orientation: alert and oriented x 3 Testing Laboratory Results 01/29/20 10:13 01/29/20 10:13 PT 13.8 Seconds (9.0-12.0) H 01/29/20 10:13 INR 1.3 (0.9-1.1) H 01/29/20 10:13 APTT 27.9 Seconds (21.0-31.0) 01/29/20 10:13 Hemoglobin A1c 5.9 % (4.5-5.6) H 01/23/20 05:40 Urine Color Yellow 01/22/20 10:50 Urine Appearance Clear (Clear) 01/22/20 10:50 Urine pH 6.5 (4.5-7.5) 01/22/20 10:50 Ur Specific [place] 1.008 (1.000-1.030) 01/22/20 10:50 Urine Protein Negative (Negative) 01/22/20 10:50 Urine Glucose (UA) Negative (Negative) 01/22/20 10:50 Urine Ketones Negative (Negative) 01/22/20 10:50 Urine Nitrite Negative (Negative) 01/22/20 10:50 Ur Leukocyte Esterase Negative (Negative) 01/22/20 10:50 Blood Type A Positive 01/29/20 06:20 Antibody Screen NEGATIVE 01/29/20 06:20 Electrocardiogram Date: 01/29/20 SR W/PAC's at 88;ST & T wave abnormality; ? inferior and anterolateral ischemia Chest X-Ray Date: 01/28/20 Findings: + other (severe emphysema;enlargement of central pulmonary arteries s ugestive of pulmonary arterial hypertension) Echocardiogram Date: 01/24/20 EF: 45% LV Function: LV mildly (mildly decreased) Cardiac Catheterization Date: 08/04/19 Findings: + pertinent finding (Luminal irregularities;otherwise widely patent) Pulmonary Function Test Date: 01/15/19 Findings: + FEV1 pre (20%) and + DLCO (49% of predicted)
[2020-01-29] MEDS ORDERED: PROPOFOL BOLUS FROM BAG IV PRN (18:36)
[2020-01-29] MEDS ORDERED: fentaNYL citrate 100 MCG/2 ML VIAL IV PRN (18:39)
[2020-01-29] MEDS ORDERED: propofoL 1,000 MG/100 ML VIAL IV SCH (18:45)
--- NOTE | 2020-01-29 19:04 | GI REPORT ---
Patient Name: Oliver Harris Procedure Date: 01/29/2020 5:48 PM Date of : 1960 Admit Type: Inpatient Age: 59 Gender: Male Attending MD: Johan Rudd MD Procedure: Upper GI endoscopy Providers: Johan Rudd MD Referring MD: YFN GAMEZ Indications: Melena Medicines: Propofol per Anesthesia Complications: No immediate complications. Estimated Blood Loss: Estimated blood loss: none. Procedure: Pre-Anesthesia Assessment: - Prior to the procedure, a History and Physical was performed, and patient medications, allergies and sensitivities were reviewed. The patient's tolerance of previous anesthesia was reviewed. - The risks and benefits of the procedure and the sedation options and risks were discussed with the patient. All questions were answered and informed consent was obtained. - Patient identification and proposed procedure were verified prior to the procedure by the physician and the nurse. The procedure was verified in the procedure room. - Pre-procedure physical examination revealed no contraindications to sedation. After obtaining informed consent, the endoscope was passed under direct vision. Throughout the procedure, the patient's blood pressure, pulse, and oxygen saturations were monitored continuously. The Endoscope was introduced through the mouth, and advanced to the second part of duodenum. The upper GI endoscopy was accomplished without difficulty. The patient tolerated the procedure well. Findings: LA Grade C (one or more mucosal breaks continuous between tops of 2 or more mucosal folds, less than 75% circumference) esophagitis with no bleeding was found in the lower third of the esophagus. A single medium erosion with no bleeding and no stigmata of recent bleeding was found in the gastric antrum. Red blood was found in the stomach. One spurting superficial duodenal ulcer with spurting hemorrhage (Malcolm Class Ia) was found in the duodenal bulb. The lesion was 12 mm in largest dimension. Area was successfully injected with 7 mL of a 1:10,000 solution of epinephrine for hemostasis. For hemostasis, five hemostatic clips were successfully placed (MR conditional). There was no bleeding at the end of the procedure. The second portion of the duodenum was normal. Impression: - Duodenal ulcer with actively spurting hemorrhage (Malcolm Class Ia). Injected with Epi. Clips (MR conditional) were placed with adequate control of bleeding. - LA Grade C reflux esophagitis. - Erosive gastropathy with no bleeding and no stigmata of recent bleeding. Recommendation: - Hold Plavix for at least 7 days. - Transfuse 2 units of Platelets. - Monitor H/H. - No NG tube for 48 hrs then may use a Dubhoff tube for feeding if patient remains on mechanical ventilation. - If any evidence of rebleeding then will plan for second look endoscopy with Hemospray. - No non-steroidal anti-inflammatory drugs. - Use a proton pump inhibitor IV daily for 3 days then PO BID for 3 months. Johan Rudd MD 01/29/2020 7:03:51 PM This report has been signed electronically. Note Initiated On: 01/29/2020 5:48 PM Number of Addenda: 0 I attest to the content of the Intraoperative Record and orders documented therein, exceptions below {[id number]}
[2020-01-29] MEDS ORDERED: ePHEDrine sulfate 50 MG/ML AMP IV PRN (19:11)
[2020-01-29] MEDS ORDERED: ATROPINE SULFATE 0.1 MG/ML 10ML SYR IV PRN (19:11)
--- NOTE | 2020-01-29 19:14 | Anesthesiology Progress Note ---
Date of Service January 29, 2020 Anesthesia Post Procedure Vital Signs Vital Signs: Temp Pulse Pulse Pulse Resp BP BP 01/29/20 18:28 92 H 14 01/29/20 17:23 36.9 C 105 H 26 H 129/71 01/29/20 17:07 36.6 C 100 H 28 H 108/58 L 01/29/20 16:58 36.6 C 103 H 28 H 113/62 01/29/20 16:54 36.7 C 102 H 28 H 122/58 L 01/29/20 16:52 36.7 C 99 H 24 125/61 01/29/20 16:40 36.9 C 101 H 23 125/84 01/29/20 16:39 36.7 C 104 H 26 H 123/61 01/29/20 16:36 36.8 C 97 H 28 H 122/60 01/29/20 16:30 36.8 C 94 H 23 118/61 01/29/20 16:23 36.8 C 94 H 21 99/49 L 01/29/20 16:11 37 C 101 H 23 76/38 L 01/29/20 16:00 100 H 01/29/20 15:55 37.0 C 101 H 24 100/50 L 01/29/20 13:30 36.7 C 80 22 01/29/20 13:00 36.7 C 91 H 21 01/29/20 12:56 36.7 C 94 H 26 H 124/67 01/29/20 12:30 36.8 C 87 23 01/29/20 11:57 36.6 C 95 H 24 131/71 01/29/20 11:30 36.5 C 79 22 01/29/20 11:00 36.4 C L 81 24 01/29/20 10:56 36.4 C L 84 27 H 119/62 01/29/20 10:30 36.2 C L 74 24 01/29/20 10:07 36.1 C L 83 30 H 108/59 L 01/29/20 10:03 36.0 C L 83 27 H 105/52 L 01/29/20 10:02 36.0 C L 82 29 H 107/61 01/29/20 10:00 36.0 C L 84 28 H 01/29/20 09:57 36.0 C L 82 24 100/58 L 01/29/20 09:56 36.0 C L 84 29 H 105/52 L 01/29/20 09:31 35.8 C L 84 23 80/57 L 01/29/20 09:30 35.8 C L 84 24 93/55 L 01/29/20 09:29 35.9 C L 84 25 H 82/56 L 01/29/20 09:24 35.6 C L 82 27 H 77/45 L 01/29/20 09:18 36.0 C L 82 26 H 101/59 L 01/29/20 09:17 35.4 C L 85 25 H 84/59 L 01/29/20 09:15 35.7 C L 81 26 H 77/45 L 01/29/20 09:09 35.4 C L 82 25 H 84/52 L 01/29/20 09:00 35.4 C L 84 25 H 01/29/20 08:55 35.3 C L 86 25 H 77/45 L 01/29/20 08:45 35.6 C L 86 20 77/45 L 01/29/20 08:44 35.6 C L 83 26 H 77/42 L 01/29/20 08:40 35.4 C L 82 25 H 84/52 L 01/29/20 08:35 35.4 C L 85 26 H 104/56 L 01/29/20 08:25 85 27 H 93/46 L 01/29/20 08:20 35.4 C L 85 25 H 93/46 L 01/29/20 08:19 35.4 C L 86 25 H 93/46 L 01/29/20 08:09 81 26 H 90/52 L 01/29/20 08:00 87 24 60/32 L 01/29/20 07:53 91 H 24 01/29/20 06:41 92 H 20 01/29/20 06:40 79 145/135 H 01/29/20 06:30 78 28 H 01/29/20 06:09 80 25 H 73/43 L 01/29/20 06:07 80 25 H 84/34 L 01/29/20 06:00 80 24 01/29/20 05:58 82 26 H 01/29/20 05:56 84 28 H 43/34 L 01/29/20 05:30 81 24 01/29/20 05:09 84 21 93/79 L 01/29/20 05:00 90 20 01/29/20 04:54 81 24 59/35 L 01/29/20 04:49 83 25 H 86/48 L 01/29/20 04:42 81 23 65/51 L 01/29/20 04:39 83 25 H 70/48 L 01/29/20 04:34 93 H 21 56/47 L 01/29/20 04:32 95 H 21 01/29/20 04:31 97 H 16 60/44 L 01/29/20 04:29 96 H 24 135/101 H 01/29/20 04:24 86 25 H 175/166 H 01/29/20 04:17 90 20 167/109 H 01/29/20 04:00 90 28 H 01/29/20 00:00 110 H 01/28/20 22:43 72 30 H 01/28/20 20:51 83 16 01/28/20 19:19 36.4 C L 65 18 BP Pulse Ox 01/29/20 18:28 100 01/29/20 17:23 96 01/29/20 17:07 95 01/29/20 16:58 103 H 01/29/20 16:54 96 01/29/20 16:52 96 01/29/20 16:40 97 01/29/20 16:39 97 01/29/20 16:36 99 01/29/20 16:30 98 01/29/20 16:23 99 01/29/20 16:11 98 01/29/20 16:00 01/29/20 15:55 92 01/29/20 13:30 96 01/29/20 13:00 99 01/29/20 12:56 98 01/29/20 12:30 01/29/20 11:57 01/29/20 11:30 100 01/29/20 11:00 100 01/29/20 10:56 100 01/29/20 10:30 99 01/29/20 10:07 100 01/29/20 10:03 99 01/29/20 10:02 100 01/29/20 10:00 100 01/29/20 09:57 100 01/29/20 09:56 99 01/29/20 09:31 100 01/29/20 09:30 100 01/29/20 09:29 100 01/29/20 09:24 100 01/29/20 09:18 100 01/29/20 09:17 100 01/29/20 09:15 100 01/29/20 09:09 100 01/29/20 09:00 100 01/29/20 08:55 100 01/29/20 08:45 100 01/29/20 08:44 100 01/29/20 08:40 100 01/29/20 08:35 100 01/29/20 08:25 100 01/29/20 08:20 100 01/29/20 08:19 100 01/29/20 08:09 100 01/29/20 08:00 100 01/29/20 07:53 01/29/20 06:41 01/29/20 06:40 01/29/20 06:30 01/29/20 06:09 01/29/20 06:07 01/29/20 06:00 01/29/20 05:58 01/29/20 05:56 01/29/20 05:30 01/29/20 05:09 01/29/20 05:00 70 L 01/29/20 04:54 100 01/29/20 04:49 01/29/20 04:42 100 01/29/20 04:39 100 01/29/20 04:34 100 01/29/20 04:32 100 01/29/20 04:31 90 01/29/20 04:29 01/29/20 04:24 100 01/29/20 04:17 01/29/20 04:00 01/29/20 00:00 01/28/20 22:43 90 01/28/20 20:51 96 01/28/20 19:19 90/60 L 92 Transfer of Care Handoff Completed per policy Notes Mental Status: see notes below Patient Amnestic to Procedure: Yes Nausea / Vomiting: see Notes below Pain: see Notes below Airway Patency, RR, SpO2: see Notes below BP & HR: see Notes below Hydration State: see Notes below Anesthetic Complications: no major complications apparent Notes: pt remained intubated and sedated post procedure and attached to a mechanical ventilator;care assumed by ICU team.
[2020-01-29] MEDS: AMPICILLIN/SULBACTAM SOD 3,000 MG in 0.9 % SODIUM CHLORIDE 100 ML IV SCH (19:49)
--- NOTE | 2020-01-29 19:49 | Hospitalist Progress Note ---
Date of Service January 29, 2020 Assessment & Plan (1) Acute GI bleeding: Hgb dropped to 6.1 Received 8 unit PRBC and 2 unit cryoprecipitate Gastro on board S/P EGD done today duodenal ulcer with actively spurting hemorrhage was found in the duodenal bulb, Injected with epinephrine and clip Most recent hgb 11.9 GI recommended to hold on plavix for at least 7 days and no NSAIDs NO NG tube for 48hr, but if remain intubated can insert a dubhoff tube for feeding Continue IV PPI for 72 hrs, then PPI PO BID for 3 months Continue monitor CBC (2) Stage 4 very severe COPD by GOLD classification: management as outlined above (3) Acute on chronic respiratory failure with hypoxia and hypercapnia: due to CPD exacerbation ABG on admission with pH 7 and Pco2 97 S/P intubation with mechanical vent Extubated 01/23/2020 and has been stable Remained intubated after the EGD Pulm on board and recommended to continue Augmentin for total 7 days, complete course on 01/29/20 Continue IV steroid for now and Roflumilast 500mcg QD Continue neb treatment Follow up with Dr Metzger in Pulm clinic Will need insurance coverage to get his meds Continue monitor in the ICU (4) Hypotension: Possible related to hypovolemia due to acute GI bleeding Cannot rule out sepsis Continue on pressor with levophed Continue IV abx with unasyn (5) Systolic congestive heart failure with reduced left ventricular function, NYHA class 2: Echo on 01/22 showed left ventricular systolic function is severely reduced with ejection fraction 15 to 20%. Repeat echo on 01/23 showed left ventricular systolic function is mildly reduced with ejection fraction 45 (approx baseline) Possible due to stress induced cardiomyopathy due to hypoxia and respiratory failure Continue to hold Lasix and lisinopril since creatinine worsening and hypotension ASA and Plavix on hold due to GI bleed (6) Acute metabolic encephalopathy: Due to respiratory failure with hypoxia Currently sedated and intubated Elevated troponin : possible due to demand ischemia due to hypoxia respiratory failure no evidence of acute coronary event ECHO showed no wall motion abnormality Continue statin, plavix and aspirin (7) NOLBERTO (acute kidney injury): Creatinine 1.6 admission Creatinine worsening to 3.5 today Continue to hold lisinopril and lasix Might consider Nepho consult if creatinine worsening Continue monitor BMP (8) Elevated lactic acid level: Possible related to hypovolemic shock and hypoxia Lactic acid increased to 6.3, trending down to 3.3 Continue monitor (9) History of tobacco use disorder: Relapsed Counseling on smoking cessation Admission and Anticipated Discharge Date Admission Date: January 22, 2020 Subjective Pt was seen and examined Pt is sedated and intubated on vent support Pt remained intubated after the EGD Continue to require pressor Physical Exam Physical Exam: General- Mechanical ventilation support Head- atraumatic Eyes- PERRL, EOMI, ENT- Intubated Neck- supple, no JVD Lungs- +mild wheezing Heart- regular rhythm; no murmur Abdomen- normal bowel sounds, soft, nontender Extremities- no calf tenderness Neuro- Sedated Skin- warm & dry Results & Data Results & Data ([facility]) Vital Signs (Past 12 Hours) Vital Signs Temp Pulse Pulse Pulse Resp BP BP 01/29/20 18:28 92 H 14 01/29/20 17:23 36.9 C 105 H 26 H 129/71 01/29/20 17:07 36.6 C 100 H 28 H 108/58 L 01/29/20 16:58 36.6 C 103 H 28 H 113/62 01/29/20 16:54 36.7 C 102 H 28 H 122/58 L 01/29/20 16:52 36.7 C 99 H 24 125/61 01/29/20 16:40 36.9 C 101 H 23 125/84 01/29/20 16:39 36.7 C 104 H 26 H 123/61 01/29/20 16:36 36.8 C 97 H 28 H 122/60 01/29/20 16:30 36.8 C 94 H 23 118/61 01/29/20 16:23 36.8 C 94 H 21 99/49 L 01/29/20 16:11 37 C 101 H 23 76/38 L 01/29/20 16:00 100 H 01/29/20 15:55 37.0 C 101 H 24 100/50 L 01/29/20 13:30 36.7 C 80 22 01/29/20 13:00 36.7 C 91 H 21 01/29/20 12:56 36.7 C 94 H 26 H 124/67 01/29/20 12:30 36.8 C 87 23 01/29/20 11:57 36.6 C 95 H 24 131/71 01/29/20 11:30 36.5 C 79 22 01/29/20 11:00 36.4 C L 81 24 01/29/20 10:56 36.4 C L 84 27 H 119/62 01/29/20 10:30 36.2 C L 74 24 01/29/20 10:07 36.1 C L 83 30 H 108/59 L 01/29/20 10:03 36.0 C L 83 27 H 105/52 L 01/29/20 10:02 36.0 C L 82 29 H 107/61 01/29/20 10:00 36.0 C L 84 28 H 01/29/20 09:57 36.0 C L 82 24 100/58 L 01/29/20 09:56 36.0 C L 84 29 H 105/52 L 01/29/20 09:31 35.8 C L 84 23 80/57 L 01/29/20 09:30 35.8 C L 84 24 93/55 L 01/29/20 09:29 35.9 C L 84 25 H 82/56 L 01/29/20 09:24 35.6 C L 82 27 H 77/45 L 01/29/20 09:18 36.0 C L 82 26 H 101/59 L 01/29/20 09:17 35.4 C L 85 25 H 84/59 L 01/29/20 09:15 35.7 C L 81 26 H 77/45 L 01/29/20 09:09 35.4 C L 82 25 H 84/52 L 01/29/20 09:00 35.4 C L 84 25 H 01/29/20 08:55 35.3 C L 86 25 H 77/45 L 01/29/20 08:45 35.6 C L 86 20 77/45 L 01/29/20 08:44 35.6 C L 83 26 H 77/42 L 01/29/20 08:40 35.4 C L 82 25 H 84/52 L 01/29/20 08:35 35.4 C L 85 26 H 104/56 L 01/29/20 08:25 85 27 H 93/46 L 01/29/20 08:20 35.4 C L 85 25 H 93/46 L 01/29/20 08:19 35.4 C L 86 25 H 93/46 L 01/29/20 08:09 81 26 H 90/52 L 01/29/20 08:00 87 24 60/32 L 01/29/20 07:53 91 H 24 Pulse Ox 01/29/20 18:28 100 01/29/20 17:23 96 01/29/20 17:07 95 01/29/20 16:58 103 H 01/29/20 16:54 96 01/29/20 16:52 96 01/29/20 16:40 97 01/29/20 16:39 97 01/29/20 16:36 99 01/29/20 16:30 98 01/29/20 16:23 99 01/29/20 16:11 98 01/29/20 16:00 01/29/20 15:55 92 01/29/20 13:30 96 01/29/20 13:00 99 01/29/20 12:56 98 01/29/20 12:30 01/29/20 11:57 01/29/20 11:30 100 01/29/20 11:00 100 01/29/20 10:56 100 01/29/20 10:30 99 01/29/20 10:07 100 01/29/20 10:03 99 01/29/20 10:02 100 01/29/20 10:00 100 01/29/20 09:57 100 01/29/20 09:56 99 01/29/20 09:31 100 01/29/20 09:30 100 01/29/20 09:29 100 01/29/20 09:24 100 01/29/20 09:18 100 01/29/20 09:17 100 01/29/20 09:15 100 01/29/20 09:09 100 01/29/20 09:00 100 01/29/20 08:55 100 01/29/20 08:45 100 01/29/20 08:44 100 01/29/20 08:40 100 01/29/20 08:35 100 01/29/20 08:25 100 01/29/20 08:20 100 01/29/20 08:19 100 01/29/20 08:09 100 01/29/20 08:00 100 01/29/20 07:53
[2020-01-29 20:02] LABS: iSTAT Art Bld Gas pCO2 Correct 32 mmHg (35-46); iSTAT Arterial Blood Gas HCO3 18 meg/L (19-24); iSTAT Arterial Blood Gas pCO2 32 mmHg (35-46); iSTAT Arterial Blood Gas pH 7.35 (7.35-7.45); iSTAT Arterial Blood Gas pO2 87 mmHg (80-95); iSTAT Arterial Blood Gas pO2 C 88; iSTAT Carbon Dioxide 19 mmol/L (24-31); iSTAT Hematocrit 35 % (42-52); iSTAT Hemoglobin 11.9 g/dl (14.0-18.0); iSTAT Potassium 5.3 mmol/L (3.3-5.0); iSTAT Site R Femoral; iSTAT Sodium 136 mmol/L (135-144)
[2020-01-29 20:02] LABS: iSTAT Art Bld Gas pCO2 Correct 30 mmHg (35-46); iSTAT Art Bld Gas pH Corrected 7.395 (7.35-7.45); iSTAT Arterial Blood Gas HCO3 18 meg/L (19-24); iSTAT Arterial Blood Gas pCO2 30 mmHg (35-46); iSTAT Arterial Blood Gas pO2 80 mmHg (80-95); iSTAT Arterial Blood Gas pO2 C 80; iSTAT Carbon Dioxide 19 mmol/L (24-31); iSTAT Hematocrit 19 % (42-52); iSTAT Hemoglobin 6.5 g/dl (14.0-18.0); iSTAT Potassium 5.2 mmol/L (3.3-5.0); iSTAT Site R Femoral; iSTAT Sodium 133 mmol/L (135-144)
[2020-01-29 20:15] LABS: iSTAT Arterial Blood Gas HCO3 23 meg/L (19-24); iSTAT Arterial Blood Gas pCO2 67 mmHg (35-46); iSTAT Arterial Blood Gas pH 7.14 (7.35-7.45); iSTAT Arterial Blood Gas pO2 160 mmHg (80-95); iSTAT Carbon Dioxide 25 mmol/L (24-31)
[2020-01-29] MEDS: fentaNYL DRIP 1,250 MCG/250 ML BAG IV SCH (21:16)
[2020-01-29] MEDS ORDERED: MIDAZOLAM HCL 5 MG/ML VIAL IV STA (22:03)
[2020-01-29 22:31] LABS: Fibrinogen 184 mg/dl (184-400); INR 1.3 (0.9-1.1); Prothrombin Time 13.5 Seconds (9.0-12.0)
[2020-01-29] MEDS ORDERED: MIDAZOLAM BOLUS FROM BAG IV PRN (22:57)
[2020-01-29] MEDS: MIDAZOLAM HCL 125 MG/250 ML BAG IV SCH (23:12)
[2020-01-29 23:13] LABS: Basophils # (auto) 0.01 K/uL (0-0.2); Hematocrit (blood only) 34.5 % (42-52); Hemoglobin 11.4 g/dL (14.0-18.0); Immature Granulocytes # (auto) 0.35 K/uL (0.00-0.02); Immature Granulocytes % (auto) 1.6 %; Lymphocytes # (auto) 1.08 K/uL (1.2-3.4); Lymphocytes % (auto) 4.9 %; Mean Corpuscular Hemoglobin 28.4 pg (25-34); Mean Platelet Volume 10.2 fL (7.4-10.4); Monocytes # (auto) 1.03 K/uL (0.11-0.59); Monocytes % (auto) 4.7 %; Neutrophils # (auto) 19.37 K/uL (1.4-6.5); Neutrophils % (auto) 88.8 %; Nucleated RBC # (auto) 0.09 K/uL (0-0); Nucleated RBC % (auto) 0.4 %; Platelet Count 182 K/uL (130-400); RDW Coefficient of Variation 15.6 % (11.5-14.5); RDW Standard Deviation 49.4 fL (36.4-46.3); Red Blood Count 4.01 M/uL (4.7-6.1); White Blood Count 21.84 K/uL (4.8-10.8)
[2020-01-30] MEDS: LEVALBUTEROL 1.25MG/0.5ML NEB INH PRN ×2 (02:09→10:43)
[2020-01-30] MEDS: IPRATROPIUM BROMIDE NEB SOLN 0.02% 2.5 ML VIAL INH PRN ×2 (02:09→10:43)
--- NOTE | 2020-01-30 03:20 | Procedure Note ---
Procedure Note Date of Service January 30, 2020 Note ARTERIAL LINE PROCEDURE NOTE: Procedure: Arterial Line Placement Attending: Dr. Dillan Metzger Provider: BENEDICTO Ontiveros Indication: Monitoring on Pressors Anesthesia: None Line was placed emergently after patient accidentally pulled out right femoral arterial line. Patient continues to require vasopressor support and requires continuous hemodynamic monitoring. A time-out was completed verifying correct patient, procedure, site, positioning, and implant(s) or special equipment if applicable. Patient's left groin was prepped and draped in the usual sterile fashion. Ultrasound guidance was used to aid needle placement. A introducer needle was introduced into the left femoral artery. Good arterial blood flow was observed and guidewire was easily exchanged for introducer needle. Guidewire confirmed in the left femoral artery with ultrasound. Catheter was inserted over guidewire and the guidewire was removed intact. Good blood flow was observed and good waveform was observed on monitor. Left femoral arterial line sutured in place and sterile dressing applied. The patient tolerated the procedure well. Confirmation of placement with ultrasound. Blood Loss: Minimal Complications: None Procedural Ultrasound Guidance: Procedure Date: 01/30/2020 Indication: 01/30/2020 Attending: Dr. Dillan Metzger Provider: BENEDICTO Ontiveros Artery Identified: YES Line confirmed in Artery with ultrasound: Yes Complications: NONE Patient tolerated procedure: WELL Coding CPT Codes Tubes, Drains, and Vasc Access - Tubes, Drains, and Vasc Access: [id number] Place Catheter In Artery ([id number]) Tubes, Drains, and Vasc Access - Tubes, Drains, and Vasc Access: [id number] Ultrasound Guidance For Vascular ([id number]) [facility] [place] Procedure Codes (Charges) Tubes, Drains, and Vasc Access Procedure 1: Tubes, Drains, and Vasc Access: [id number] Place Catheter In Artery Procedure 2: Tubes, Drains, and Vasc Access: [id number] Ultrasound Guidance For Vascular
[2020-01-30] MEDS: PANTOprazole 40 MG in DEXTROSE 5% 100 ML IV SCH ×4 (03:45→19:14)
[2020-01-30 04:42] LABS: Basophils # (auto) 0.01 K/uL (0-0.2); Basophils % (auto) 0.1 %; Hematocrit (blood only) 32.3 % (42-52); Hemoglobin 10.7 g/dL (14.0-18.0); Immature Granulocytes # (auto) 0.21 K/uL (0.00-0.02); Immature Granulocytes % (auto) 1.3 %; Lymphocytes # (auto) 1.07 K/uL (1.2-3.4); Lymphocytes % (auto) 6.5 %; Mean Corpuscular Hgb Conc 33.1 g/dL (32-36); Mean Corpuscular Volume 84.6 fL (80-100); Mean Platelet Volume 9.8 fL (7.4-10.4); Monocytes # (auto) 0.56 K/uL (0.11-0.59); Monocytes % (auto) 3.4 %; Neutrophils # (auto) 14.72 K/uL (1.4-6.5); Neutrophils % (auto) 88.7 %; Nucleated RBC # (auto) 0.11 K/uL (0-0); Nucleated RBC % (auto) 0.7 %; Platelet Count 148 K/uL (130-400); RDW Coefficient of Variation 15.9 % (11.5-14.5); RDW Standard Deviation 48.8 fL (36.4-46.3); Red Blood Count 3.82 M/uL (4.7-6.1); White Blood Count 16.57 K/uL (4.8-10.8)
[2020-01-30 04:51] LABS: INR 1.2 (0.9-1.1); Prothrombin Time 12.8 Seconds (9.0-12.0)
[2020-01-30 05:00] LABS: Albumin Level 2.7 gm/dl (3.4-5.0); Creatinine Clr Calc Pharmacy 37.8 ml/min; Est GFR (African American) 29.6; Est GFR (Non-African American) 25.5; Magnesium 2.6 mg/dl (1.8-2.4); Potassium 4.8 mmol/L (3.5-5.1)
[2020-01-30] MEDS: methylPREDNISolone 40 MG in SYRINGE 0 ML IV SCH ×3 (05:02→20:55)
[2020-01-30] MEDS: AMPICILLIN/SULBACTAM SOD 3,000 MG in 0.9 % SODIUM CHLORIDE 100 ML IV SCH (05:02)
[2020-01-30 05:29] LABS: Albumin Globulin Ratio 1.5 (0.9-2); BUN Creatinine Ratio 65.5 (10-20); Bilirubin,Total 0.6 mg/dl (0.2-1); Globulin 1.8 gm/dl (2.5-4.0); Phosphorus 4.8 mg/dl (2.5-4.9); Total Protein 4.5 gm/dl (6.4-8.2)
[2020-01-30 05:31] LABS: iSTAT Art Bld Gas pCO2 Correct 39 mmHg (35-46); iSTAT Art Bld Gas pH Corrected 7.339 (7.35-7.45); iSTAT Arterial Blood Gas HCO3 21 meg/L (19-24); iSTAT Arterial Blood Gas pCO2 41 mmHg (35-46); iSTAT Arterial Blood Gas pH 7.33 (7.35-7.45); iSTAT Arterial Blood Gas pO2 116 mmHg (80-95); iSTAT Arterial Blood Gas pO2 C 111; iSTAT Carbon Dioxide 23 mmol/L (24-31); iSTAT FiO2 40 %; iSTAT Hematocrit 29 % (42-52); iSTAT Hemoglobin 9.9 g/dl (14.0-18.0); iSTAT Potassium 4.7 mmol/L (3.3-5.0); iSTAT Site Art Line; iSTAT Sodium 138 mmol/L (135-144)
[2020-01-30] MEDS: NOREPINEPHRINE BIT INJ 8 MG in DEXTROSE 5% 500 ML IV SCH ×4 (07:03→17:54)
[2020-01-30] MEDS: INSULIN ASPART 100 UNITS/ML 3 ML PEN SC SCH ×3 (07:15→17:58)
[2020-01-30] MEDS: BUDESONIDE 0.5 MG/2 ML VIAL (PULMICORT) NEB SCH ×2 (07:27→19:02)
[2020-01-30] MEDS: FORMOTEROL 20 MCG/2 ML VIAL NEB SCH ×2 (07:27→19:02)
[2020-01-30] MEDS: SODIUM CHLOR 7% 4 ML NEB NEB SCH (07:27)
--- NOTE | 2020-01-30 07:44 | XRay Report ---
XR chest 1V portable CLINICAL HISTORY: hypoxia COMPARISON STUDY: Chest radiograph January 29, 2020. FINDINGS: Right internal jugular central line is in place. Tip of endotracheal tube 6.4 cm above the holly. There is no pneumothorax. Emphysema is noted. Bibasilar airspace opacities have developed. Th ere is no evidence for pulmonary edema. Cardiomediastinal silhouette is stable. There is at least mil d gaseous distention of the stomach. IMPRESSION: 1. Tip of endotracheal tube 6.4 cm above the holly. 2. Interval development of bibasilar opacities. This may reflect pneumonia or atelectasis. 3. At least mild gaseous distention of the stomach. 4. Emphysema. ACT 112: Negative or not required by law. Electronically signed by: Marcelino Antunez M.D. 01/30/2020 7:42 AM
[2020-01-30] MEDS ORDERED: Nursing to Pharmacy Communication SCH ×2 (08:45→17:30)
[2020-01-30] MEDS: ESCITALOPRAM OXALATE 20 MG TAB PO SCH (08:52)
[2020-01-30] MEDS: guaiFENesin 600 MG TABCR PO SCH (08:52)
[2020-01-30] MEDS: THEOPHYLLINE 300MG EXTENDED REL TAB PO SCH (08:52)
[2020-01-30] MEDS: ROFLUMILAST 500 MCG TAB PO SCH (08:53)
[2020-01-30 09:17] LABS: Appearance Urine Clear (Clear); Bacteria Urine Automated Negative (Negative); Bilirubin Urine Negative (Negative); Blood Urine Trace (Negative); Color Urine Yellow; Epithelial Cell Urine Auto 20-30 /lpf (0-5); Glucose Urine UA Negative (Negative); Ketones Urine Negative (Negative); Leukocyte Esterase Urine Negative (Negative); Nitrite Urine Negative (Negative); Protein Urine Negative (Negative); RBC Urine Automated 0-4 /hpf (0-4); Specific Gravity Urine 1.023 (1.000-1.030); Urobilinogen Urine Negative (Negative)
[2020-01-30 09:47] LABS: Cast Urine Automated 0 /lpf (0-5)
--- NOTE | 2020-01-30 10:40 | Critical Care Progress Note ---
Date of Service January 30, 2020 Assessment & Plan (1) Acute GI bleeding: (2) NOLBERTO (acute kidney injury): (3) History of tobacco use disorder: (4) Stage 4 very severe COPD by GOLD classification: Impression: 59-year-old male with very severe obstructive lung disease. He was initially admitted with COPD exacerbation requiring mechanical ventilation. He was extubated and transferred to the floor. He was transferred back to the ICU 01/28 early in the morning with hemodynamically significant active GI bleed requiring intensive resuscitation. 24-hour events: Patient transferred down to the ICU early yesterday morning. He had a central line placed. Arterial lines were also placed. He was actively resuscitated with 8 units of packed cells. He also received cryoprecipitate. He was on Levophed. Once he stabilized he was taken to EGD and intubated. GI found esophagitis which was not actively bleeding as well as a actively bleeding duodenal ulcer which was treated with epinephrine injections and placement of hemostatic clips. He is remained intubated overnight. He remains on vasopressors. Urine output has improved and serum creatinine is better Recommendations NEURO: Continue sedation with Versed, fentanyl, and propofol for now. We will keep sedated pending improvement in the patient's hemodynamic status and documentation of stable hemoglobin and hematocrit. CARDIAC: Known ejection fraction of 45%. Now with hypovolemic shock which appears to be correcting. Continue to wean pressors as tolerated.Does appear to be having an atrial arrhythmia with frequent PACs. No prior history of atrial fibrillation. Cannot anticoagulate, will focus on rate control only at this point time. RESPIRATORY: Advanced obstructive lung disease with ongoing tobacco abuse. Continue steroids although that certainly could have contributed to his duodenal ulcer. Chest x- ray remains clear. Continue Perforomist and budesonide. Continue Mucinex. Likely require extubation to his home trilogy. May require Lasix once kidney function improves and off pressors GI: Status post urgent EGD with treatment of duodenal ulcer. Continue IV PPI per GI. Continue serial hemoglobin and hematocrit as well as maintaining platelet and INR counts. Keep n.p.o. for now. No OG tube for 24 hours per GI notes. RENAL/LYTES: Acute renal failure: Suspect hypovolemic/prerenal ATN. Improving today. Continue to follow. : Continue Rand catheter ENDO: Continue glycemic control per protocol. Keep Solu-Medrol at 40 mg daily. HEME: Continue serial hemoglobin and hematocrit. ID: Patient was initially on amoxicillin for COPD exacerbation. Antibiotics can be discontinued at this point time. We may consider a azithromycin if his QTC is controlled for management of his obstructive lung disease. LINES/IV ACCESS: Central line, left femoral arterial line, Rand catheter, endotracheal tube CODE STATUS: Patient stated he would not want compressions or shocks in the event of a cardiac arrest but was agreeable to intubation for the EGD. DVT PROPHYLAXIS: On hold due to GI bleed Patient is critically ill and will remain in the ICU at this point time. Discussed with ICU nurse at bedside. No family available. 45 minutes critical care time evaluating managing patient. Prognosis for functional recovery is somewhat guarded given the patient's advanced underlying cardiac and pulmonary disease. (5) Systolic congestive heart failure with reduced left ventricular function, NYHA class 2: (6) Ischemic heart disease: (7) Non-ST elevated myocardial infarction (non-STEMI): (8) Elevated lactic acid level: (9) Hypotension: (10) Hypovolemic shock: Admission and Anticipated Discharge Date Admission Date: January 22, 2020 Subjective Intubated and sedated Review of Systems Review of Systems: Unobtainable due to endotracheal tube Physical Exam Constitutional: + mechanically ventilated Intubated and sedated. Opens eyes to verbal commands Neck: trachea midline, no thyromegaly Respiratory: normal respiratory effort Coarse breath sounds bilaterally Cardiovascular: RRR, no murmur, no edema Gastrointestinal (Abdomen): normal bowel sounds, soft, nontender, no hepatos plenomegaly Musculoskeletal: Extremities: extremities normal to inspection Skin: no rashes, warm and dry Neurologic: Nonfocal exam Lymphatic: no cervical lymphadenopathy Results & Data Results & Data ([facility]) Vital Signs (Past 12 Hours) Vital Signs Temp Pulse Pulse Resp BP Pulse Ox 01/30/20 08:00 94 H 01/30/20 07:57 98 H 01/30/20 07:46 36.2 C L 85 101/60 95 01/30/20 07:31 36.2 C L 75 121/55 L 96 01/30/20 07:25 74 20 97 01/30/20 07:16 36.2 C L 71 123/52 L 95 01/30/20 07:01 36.2 C L 80 113/56 L 95 01/30/20 06:46 36.2 C L 65 128/57 L 94 01/30/20 05:15 36.1 C L 74 115/59 L 100 01/30/20 05:08 73 20 100 01/30/20 05:00 36.2 C L 71 102/51 L 100 01/30/20 04:45 36.2 C L 68 95/48 L 100 01/30/20 04:30 36.2 C L 82 93/52 L 100 01/30/20 04:18 36.2 C L 78 97/47 L 100 01/30/20 04:15 36.2 C L 83 97/47 L 100 01/30/20 04:00 36.2 C L 69 93/43 L 96 01/30/20 03:45 36.2 C L 76 100/51 L 100 01/30/20 03:30 36.2 C L 71 100 01/30/20 03:00 36.2 C L 69 100 01/30/20 02:54 36.2 C L 73 120/53 L 100 01/30/20 02:30 36.2 C L 71 100 01/30/20 02:10 72 20 100 01/30/20 02:00 36.3 C L 65 100 01/30/20 01:54 36.3 C L 74 124/67 100 01/30/20 01:45 72 20 100 01/30/20 00:51 36.3 C L 71 21 109/51 L 100 01/30/20 00:46 36.3 C L 64 129/65 100 01/30/20 00:31 36.4 C L 70 119/69 100 01/30/20 00:30 36.4 C L 75 100 01/30/20 00:16 36.5 C 71 128/63 100 01/30/20 00:00 36.5 C 67 118/67 100 01/29/20 23:46 36.4 C L 72 110/56 L 89 L 01/29/20 23:31 36.3 C L 72 147/57 H 01/29/20 23:30 36.3 C L 68 01/29/20 23:16 36.5 C 80 90/44 L 100 01/29/20 23:01 36.5 C 83 98/47 L 99 01/29/20 23:00 36.5 C 82 20 99 01/29/20 22:47 36.6 C 80 100 01/29/20 22:46 36.5 C 81 107/57 L 100 Laboratory Results 01/30/20 04:32 01/30/20 04:32 Diagnostic Findings EGD notes reviewed. Actively bleeding duodenal ulcer status post epinephrine injection and placement of hemostatic clips. Erosive esophagitis also noted.EGD notes and imaging reviewed. Chest x-ray from today was reviewed. Endotracheal tube is about 6 cm of the holly. Internal jugular line is in good position. There are hazy opacities with some atelectasis in the bilateral bases. Coding Level of Care Code Critical Care 1st 30-74 mins Diagnoses Acute GI bleeding K92.2 NOLBERTO (acute kidney injury) N17.9 History of tobacco use disorder Z87.891 Stage 4 very severe COPD by GOLD classification J44.9 Systolic congestive heart failure with reduced left ventricular function, NYHA class 2 I50.20 Ischemic heart disease I25.9 Non-ST elevated myocardial infarction (non-STEMI) I21.4 Elevated lactic acid level R79.89 Hypotension I95.9 Hypovolemic shock R57.1
[2020-01-30 11:19] LABS: Basophils # (auto) 0.02 K/uL (0-0.2); Basophils % (auto) 0.1 %; Hematocrit (blood only) 32.1 % (42-52); Immature Granulocytes # (auto) 0.25 K/uL (0.00-0.02); Immature Granulocytes % (auto) 1.3 %; Lymphocytes # (auto) 1.06 K/uL (1.2-3.4); Lymphocytes % (auto) 5.4 %; Mean Corpuscular Hemoglobin 28.7 pg (25-34); Mean Corpuscular Hgb Conc 34.3 g/dL (32-36); Mean Corpuscular Volume 83.8 fL (80-100); Mean Platelet Volume 10.1 fL (7.4-10.4); Monocytes # (auto) 0.79 K/uL (0.11-0.59); Neutrophils # (auto) 17.66 K/uL (1.4-6.5); Neutrophils % (auto) 89.2 %; Nucleated RBC # (auto) 0.18 K/uL (0-0); Nucleated RBC % (auto) 0.9 %; Platelet Count 154 K/uL (130-400); RDW Coefficient of Variation 16.2 % (11.5-14.5); RDW Standard Deviation 49.5 fL (36.4-46.3); Red Blood Count 3.83 M/uL (4.7-6.1); White Blood Count 19.78 K/uL (4.8-10.8)
[2020-01-30] MEDS ORDERED: INSULIN ASPART 100 UNITS/ML 3 ML PEN SC SCH (11:30)
[2020-01-30] MEDS: fentaNYL DRIP 1,250 MCG/250 ML BAG IV SCH (12:12)
--- NOTE | 2020-01-30 12:45 | Gastroenterology Progress Note ---
Date of Service January 30, 2020 Assessment & Plan (1) Duodenal ulcer: (2) Acute GI bleeding: s/p EGD with dual therapy on 01/28. hgb remains stable, on PPI drip Recs: --trend H/H, transfuse prn hgb <7 --hold plavix for 7 days from procedure --complete 72 hours of protonix drip then can transition to protonix 40 mg po BID --if any signs of rebleeding/worsening anemia, please contact me, will plan for second look endoscopy likely with hemospray rest as per primary team Admission and Anticipated Discharge Date Admission Date: January 22, 2020 Subjective overnight no further bleeding, hgb stable today at 11. Remains intubated and on pressors and PPI gtt currently. EGD 01/28 showed bleeding duodenal bulb ulcer treated with dual therapy. Review of Systems Review of Systems: Unobtainable due to endotracheal tube Physical Exam Constitutional: WD/WN, vitals as above Respiratory: normal respiratory effort, lungs clear to auscultation Cardiovascular: RRR, no murmur, no edema Gastrointestinal (Abdomen): normal bowel sounds, soft, nontender, no hepatosplenomegaly Musculoskeletal: no lower extremity edema Psychiatric: A+Ox3, euthymic affect Results & Data Results & Data ([facility]) Vital Signs (Past 12 Hours) Vital Signs Temp Pulse Pulse Resp BP Pulse Ox 01/30/20 08:00 94 H 01/30/20 07:57 98 H 01/30/20 07:46 36.2 C L 85 101/60 95 01/30/20 07:31 36.2 C L 75 121/55 L 96 01/30/20 07:25 74 20 97 01/30/20 07:16 36.2 C L 71 123/52 L 95 01/30/20 07:01 36.2 C L 80 113/56 L 95 01/30/20 06:46 36.2 C L 65 128/57 L 94 01/30/20 05:15 36.1 C L 74 115/59 L 100 01/30/20 05:08 73 20 100 01/30/20 05:00 36.2 C L 71 102/51 L 100 01/30/20 04:45 36.2 C L 68 95/48 L 100 01/30/20 04:30 36.2 C L 82 93/52 L 100 01/30/20 04:18 36.2 C L 78 97/47 L 100 01/30/20 04:15 36.2 C L 83 97/47 L 100 01/30/20 04:00 36.2 C L 69 93/43 L 96 01/30/20 03:45 36.2 C L 76 100/51 L 100 01/30/20 03:30 36.2 C L 71 100 01/30/20 03:00 36.2 C L 69 100 01/30/20 02:54 36.2 C L 73 120/53 L 100 01/30/20 02:30 36.2 C L 71 100 01/30/20 02:10 72 20 100 01/30/20 02:00 36.3 C L 65 100 01/30/20 01:54 36.3 C L 74 124/67 100 01/30/20 01:45 72 20 100 01/30/20 00:51 36.3 C L 71 21 109/51 L 100 01/30/20 00:46 36.3 C L 64 129/65 100 PG Care Time/CCT Total # of Minutes Spent Total Time Spent with Patient: Total time spent is greater than 50% in coordination of care (as documented) at patient's floor/unit and/or counseling patient: Coding Level of Care Code 37653 Subseq Hosp Care Lvl 3 Diagnoses Duodenal ulcer K26.9 Acute GI bleeding K92.2
--- NOTE | 2020-01-30 13:29 | Pharmacy Report ---
Glycemic Control Progress Note - Date of Service January 30, 2020 - Scope Glycemic Pharmacist consulted for glycemic control to write orders per [facility] inpatient glycemic control protocol. - Objective Accuchecks BSG(last 24 hours):: 01/29/20 01/29/20 01/30/20 17:13 20:15 04:32 Glucose 179 H POC Glucose 190 H 155 H POC Glucose (other) 01/30/20 11:12 Glucose POC Glucose POC Glucose (other) 180 H HbA1c:: Hemoglobin A1c 5.9 % (4.5-5.6) H 01/23/20 05:40 - Recent Pertinent Medications The patient is currently receiving: * Basal insulin: Lantus 0 units every 24 hours * Correctional Insulin: Novolog Correction per scale ACHS Goal Range: Low 110 mg/dL - High 140 mg/dL Correction Factor: 25 mg/dL/unit * Prandial insulin: Per carb ratio of 1 unit per 20 grams CHO consumed - Outpatient Anti-Diabetic Meds n/a - Assessment & Plan ASSESSMENT: * See progress note from 02/03/20 for more background info, in short: * Pt receiving SQ basal bolus insulin regimen for hyperglycemia secondary to Solu-Medrol 40 mg IV q 8 hours. Patient is currently intubated -- started on Levophed this morning. * Patient is currently receiving an average of 1 units of insulin per day * 0 units of basal insulin * 1 units of prandial/correctional insulin * BSGs ranging 80 - 190 mg/dl over the past 24hrs * Changes needed to insulin regimen: * AM Fasting BSG = 179 mg/dl. This is in goal range for patient based on inpatient targets and co-morbidities. This is significantly elevated compared to yesterday's fasting of 80 mg/dL. This may be secondary to steroids or Levophed. Since patient is on a vasopressor - it is prudent to consider IV insulin infusion. Placed pending for insulin infusion for two consecutive BSGs > 180 mg/dL. * Post-prandial BSGs are steady. No changes. * Total daily dose = ? units. Was previously < 5 units/day but is changing with new stressors. PLAN FOR INPATIENT GLYCEMIC CONTROL: * Continuing correction factor of 25 mg/dl/unit * Continuing carb ratio of 1 unit per 20 grams CHO consumed (patient intubated without carbohydrate intake) * Continuing goal range of Low 110 mg/dL - High 140 mg/dL * Please note that the plan above was derived based on current level of insulin resistance and hospital stress. These recommendations are appropriate for inpatient admission only. Plan of care upon discharge will need to be reassessed to avoid potential outpatient hypo/hyperglycemia. Thank you.
[2020-01-30] MEDS: UMECLIDINIUM BROMIDE 62.5MCG/BLISTER 7 PUFFS/INHALER INH SCH (13:31)
[2020-01-30] MEDS ORDERED: LANTUS PER UNIT CHARGE SQ ONE (14:00)
[2020-01-30] MEDS ORDERED: FUROSEMIDE 40 MG in SYRINGE 0 ML IV ONE (14:23)
[2020-01-30] MEDS ORDERED: ALBUMIN 25% 50 ML IV ONE (14:23)
[2020-01-30] MEDS ORDERED: FUROSEMIDE 40 MG/4 ML VIAL IV ONE (14:45)
[2020-01-30] MEDS ORDERED: STAT IV Infusion **Titration per Protocol STA (17:26)
[2020-01-30] MEDS: VASOPRESSIN 20 UNITS in 0.9 % SODIUM CHLORIDE 100 ML IV SCH (17:54)
--- NOTE | 2020-01-30 19:00 | Hospitalist Progress Note ---
Date of Service January 30, 2020 Assessment & Plan (1) Acute GI bleeding: Hgb dropped to 6.1 Received 8 units PRBC and 3 units cryoprecipitate, 2 units platelets Gastro on board S/P EGD done today duodenal ulcer with actively spurting hemorrhage was found in the duodenal bulb, Injected with epinephrine and clip Most recent hgb 10.3 today GI recommended to hold on plavix for at least 7 days and no NSAIDs NO NG tube for 48hr, but if remain intubated can insert a dubhoff tube for feedi ng Continue IV PPI for 72 hrs, then PPI PO BID for 3 months Continue monitor CBC (2) Stage 4 very severe COPD by GOLD classification: (3) Acute on chronic respiratory failure with hypoxia and hypercapnia: due to CPD exacerbation ABG on admission with pH 7 and Pco2 97 S/P intubation with mechanical vent Extubated 01/23/2020 and has been stable Remained intubated after the EGD Pulm on board and recommended to continue Augmentin for total 7 days, complete course on 01/29/20 Continue IV steroid for now and Roflumilast 500mcg QD Continue neb treatment Follow up with Dr Metzger in Pulm clinic Will need insurance coverage to get his meds Continue monitor in the ICU (4) Hypotension: Possible related to hypovolemia shock due to acute GI bleeding Cannot rule out sepsis Continue on pressor with levophed IV abx with unasyn discontinued (5) Transaminitis: Mostly related to hypovolemic shock AST increased to 1177, now trending down to 825 ALT increased to 1221, now trending to 1186 Continue monitor liver enzymes (6) Systolic congestive heart failure with reduced left ventricular function, NYHA class 2: Echo on 01/22 showed left ventricular systolic function is severely reduced with ejection fraction 15 to 20%. Repeat echo on 01/23 showed left ventricular systolic function is mildly reduced with ejection fraction 45 (approx baseline) Possible due to stress induced cardiomyopathy due to hypoxia and respiratory failure Continue to hold Lasix and lisinopril since creatinine worsening and hypotension ASA and Plavix on hold due to GI bleed (7) Acute metabolic encephalopathy: Due to respiratory failure with hypoxia Currently sedated and intubated Elevated troponin : possible due to demand ischemia due to hypoxia respiratory failure no evidence of acute coronary event ECHO showed no wall motion abnormality Continue statin, plavix and aspirin (8) NOLBERTO (acute kidney injury): Creatinine 1.6 admission Creatinine worsening to 3.5, now trending down 2.3 Continue to hold lisinopril and lasix Might consider Nepho consult if creatinine worsening Continue monitor BMP (9) Elevated lactic acid level: Possible related to hypovolemic shock and hypoxia Elevated procalcitonin Lactic acid increased to 6.3, now normalized Iv abx was discontinued today Continue monitor (10) History of tobacco use disorder: Relapsed Counseling on smoking cessation Admission and Anticipated Discharge Date Admission Date: January 22, 2020 Subjective Pt was seen and examined Lying in bed sedated and intubated on vent support Open eyes when called his name Continue to require pressor Physical Exam Physical Exam: General- Mechanical ventilation support Head- atraumatic Eyes- PERRL, EOMI, ENT- Intubated Neck- supple, no JVD Lungs- +mild wheezing Heart- regular rhythm; no murmur Abdomen- normal bowel sounds, soft, nontender Extremities- no calf tenderness Neuro- Sedated Skin- warm & dry Results & Data Results & Data ([facility]) Vital Signs (Past 12 Hours) Vital Signs Temp Pulse Resp BP Pulse Ox 01/30/20 18:23 36.9 C 82 120/64 94 01/30/20 17:54 36.8 C 95 H 122/57 L 93 01/30/20 17:23 36.8 C 83 113/59 L 93 01/30/20 17:05 88 20 93 01/30/20 16:53 36.8 C 92 H 106/53 L 92 01/30/20 16:50 36.8 C 95 H 107/51 L 92 01/30/20 16:30 36.7 C 88 92 01/30/20 16:23 36.7 C 87 113/63 91 01/30/20 16:00 94 H 01/30/20 15:53 36.7 C 88 104/60 92 01/30/20 15:23 36.6 C 99 H 102/55 L 92 01/30/20 14:53 36.6 C 95 H 111/58 L 92 01/30/20 14:23 36.6 C 93 H 104/55 L 92 01/30/20 14:16 36.6 C 94 H 73/57 L 92 01/30/20 14:01 36.6 C 96 H 97/57 L 93 01/30/20 13:46 36.6 C 97 H 101/58 L 93 01/30/20 13:31 36.6 C 99 H 109/54 L 93 01/30/20 13:22 94 H 21 96 01/30/20 13:16 36.6 C 98 H 97/53 L 93 01/30/20 13:01 36.5 C 97 H 92/49 L 94 01/30/20 12:46 36.5 C 97 H 82/50 L 94 01/30/20 12:16 36.4 C L 98 H 89/49 L 94 01/30/20 12:01 36.4 C L 95 H 100/65 96 01/30/20 11:46 36.4 C L 102 H 102/60 95 01/30/20 11:31 36.4 C L 98 H 82/55 L 96 01/30/20 11:16 36.4 C L 98 H 100/53 L 95 01/30/20 11:01 36.4 C L 98 H 88/55 L 95 01/30/20 10:46 36.4 C L 96 H 93/51 L 94 01/30/20 10:43 90 21 94 01/30/20 10:31 36.4 C L 90 99/54 L 94 01/30/20 10:16 36.4 C L 88 104/61 92 01/30/20 10:01 36.4 C L 90 107/56 L 92 01/30/20 09:46 36.4 C L 96 H 101/60 92 01/30/20 09:31 36.4 C L 94 H 115/59 L 92 01/30/20 09:16 36.3 C L 92 H 111/57 L 92 01/30/20 09:01 36.3 C L 96 H 93/56 L 92 01/30/20 08:46 36.3 C L 93 H 115/62 92 01/30/20 08:31 36.3 C L 91 H 119/61 92 01/30/20 08:16 36.3 C L 85 106/53 L 94 01/30/20 08:01 36.3 C L 89 97/53 L 94 01/30/20 08:00 94 H 01/30/20 07:57 98 H 01/30/20 07:46 36.2 C L 85 101/60 95 01/30/20 07:31 36.2 C L 75 121/55 L 96 01/30/20 07:25 74 20 97 01/30/20 07:16 36.2 C L 71 123/52 L 95 01/30/20 07:01 36.2 C L 80 113/56 L 95
[2020-01-30 20:14] LABS: Hematocrit (blood only) 31.1 % (42-52); Hemoglobin 10.3 g/dL (14.0-18.0); Mean Corpuscular Hemoglobin 27.8 pg (25-34); Mean Corpuscular Hgb Conc 33.1 g/dL (32-36); Mean Corpuscular Volume 83.8 fL (80-100); Mean Platelet Volume 9.7 fL (7.4-10.4); Nucleated RBC # (auto) 0.47 K/uL (0-0); Nucleated RBC % (auto) 2.2 %; Platelet Count 147 K/uL (130-400); RDW Coefficient of Variation 16.1 % (11.5-14.5); RDW Standard Deviation 48.9 fL (36.4-46.3); Red Blood Count 3.71 M/uL (4.7-6.1); White Blood Count 20.93 K/uL (4.8-10.8)
[2020-01-30 20:31] LABS: BUN Creatinine Ratio 69.4 (10-20); Calcium 8.1 mg/dl (8.5-10.1); Creatinine Clr Calc Pharmacy 43.5 ml/min; Est GFR (African American) 34.8; Magnesium 2.8 mg/dl (1.8-2.4); Potassium 4.7 mmol/L (3.5-5.1)
[2020-01-30 20:36] LABS: Troponin I 0.463 ng/ml (0-0.045)
[2020-01-30] MEDS: NOREPINEPHRINE BIT INJ 16 MG in DEXTROSE 5% 500 ML IV SCH (21:58)
[2020-01-31] MEDS: PANTOprazole 40 MG in DEXTROSE 5% 100 ML IV SCH ×6 (00:12→23:33)
[2020-01-31] MEDS: INSULIN ASPART 100 UNITS/ML 3 ML PEN SC SCH ×6 (00:13→19:59)
[2020-01-31] MEDS: VASOPRESSIN 20 UNITS in 0.9 % SODIUM CHLORIDE 100 ML IV SCH ×3 (01:29→18:17)
[2020-01-31] MEDS: methylPREDNISolone 40 MG in SYRINGE 0 ML IV SCH ×3 (04:17→19:59)
[2020-01-31] MEDS: fentaNYL DRIP 1,250 MCG/250 ML BAG IV SCH ×2 (05:11→19:59)
[2020-01-31 05:15] LABS: Basophils # (auto) 0.04 K/uL (0-0.2); Basophils % (auto) 0.2 %; Hematocrit (blood only) 31.7 % (42-52); Hemoglobin 10.4 g/dL (14.0-18.0); Immature Granulocytes # (auto) 0.66 K/uL (0.00-0.02); Immature Granulocytes % (auto) 3.6 %; Lymphocytes # (auto) 0.45 K/uL (1.2-3.4); Lymphocytes % (auto) 2.5 %; Mean Corpuscular Hemoglobin 28.3 pg (25-34); Mean Corpuscular Hgb Conc 32.8 g/dL (32-36); Mean Corpuscular Volume 86.1 fL (80-100); Mean Platelet Volume 9.9 fL (7.4-10.4); Monocytes # (auto) 1.76 K/uL (0.11-0.59); Monocytes % (auto) 9.6 %; Neutrophils # (auto) 15.33 K/uL (1.4-6.5); Neutrophils % (auto) 84.1 %; Nucleated RBC # (auto) 1.12 K/uL (0-0); Nucleated RBC % (auto) 6.1 %; Platelet Count 148 K/uL (130-400); RDW Coefficient of Variation 16.5 % (11.5-14.5); RDW Standard Deviation 51.1 fL (36.4-46.3); Red Blood Count 3.68 M/uL (4.7-6.1); White Blood Count 18.24 K/uL (4.8-10.8)
[2020-01-31 05:26] LABS: INR 1.1 (0.9-1.1); Prothrombin Time 11.3 Seconds (9.0-12.0)
[2020-01-31 05:42] LABS: BUN Creatinine Ratio 70.9 (10-20); Calcium 8.2 mg/dl (8.5-10.1); Creatinine Clr Calc Pharmacy 51.6 ml/min; Est GFR (African American) 42.7; Est GFR (Non-African American) 36.8; Magnesium 2.8 mg/dl (1.8-2.4); Potassium 4.8 mmol/L (3.5-5.1)
[2020-01-31 05:44] LABS: iSTAT Art Bld Gas pCO2 Correct 43 mmHg (35-46); iSTAT Arterial Blood Gas HCO3 24 meg/L (19-24); iSTAT Arterial Blood Gas pCO2 44 mmHg (35-46); iSTAT Arterial Blood Gas pH 7.34 (7.35-7.45); iSTAT Arterial Blood Gas pO2 72 mmHg (80-95); iSTAT Arterial Blood Gas pO2 C 70; iSTAT Carbon Dioxide 25 mmol/L (24-31); iSTAT FiO2 30 %; iSTAT Hematocrit 28 % (42-52); iSTAT Hemoglobin 9.5 g/dl (14.0-18.0); iSTAT Potassium 4.8 mmol/L (3.3-5.0); iSTAT Site Art Line; iSTAT Sodium 139 mmol/L (135-144)
[2020-01-31 05:58] LABS: Basophilic Stippling 1+; Polychromasia 1+
[2020-01-31 06:04] LABS: Albumin Globulin Ratio 1.4 (0.9-2); Bilirubin,Total 0.4 mg/dl (0.2-1); Globulin 2.1 gm/dl (2.5-4.0); Phosphorus 3.7 mg/dl (2.5-4.9); Total Protein 5.1 gm/dl (6.4-8.2)
--- NOTE | 2020-01-31 07:21 | XRay Report ---
XR chest 1V portable CLINICAL HISTORY: Respiratory failure. COMPARISON STUDY: Chest radiograph January 30, 2020. FINDINGS: The tip of the endotracheal tube is 7.3 cm above the holly. Right internal jugular central line is in place. There is no pneumo thorax. Bibasilar opacities have slightly improved. There is no pleural effusion. There is no evidence for pulmonary edema. IMPRESSION: 1. Tip of endotracheal tube 7.3 cm above the holly. 2. No pneumothorax. 3. Interval improvement in bibasilar opacities. ACT 112: Negative or not required by law. Electronically signed by: Marcelino Antunez M.D. 01/31/2020 7:20 AM
[2020-01-31] MEDS: FORMOTEROL 20 MCG/2 ML VIAL NEB SCH ×2 (07:29→19:31)
[2020-01-31] MEDS: BUDESONIDE 0.5 MG/2 ML VIAL (PULMICORT) NEB SCH ×2 (07:29→19:31)
--- NOTE | 2020-01-31 10:15 | Gastroenterology Progress Note ---
Date of Service January 31, 2020 Assessment & Plan (1) Duodenal ulcer: s/p EGD with hemostasis on 01/28, no further bleeding, h/h stable. recs: --complete 72 hours of protonix drip, then switch to PO BID for 3 months --trend H/H, transfuse prn hgb< 7 --if worsening anemia/signs of rebleeding, then will need second look endoscopy with hemospray GI will sign off at this time, recall as needed. Admission and Anticipated Discharge Date Admission Date: January 22, 2020 Subjective no events overnight, no reports of significant bleeding per nursing staff. hgb remains stable. still intubated and sedated, on PPI drip and pressors. Review of Systems Review of Systems: Unobtainable due to endotracheal tube Physical Exam Constitutional: WD/WN, vitals as above Respiratory: normal respiratory effort, lungs clear to auscultation Cardiovascular: RRR, no murmur, no edema Gastrointestinal (Abdomen): normal bowel sounds, soft, nontender, no hepatosplenomegaly Musculoskeletal: no lower extremity edema Psychiatric: A+Ox3, euthymic affect Results & Data Results & Data ([facility]) Vital Signs (Past 12 Hours) Vital Signs Temp Pulse Resp BP Pulse Ox 01/31/20 08:00 68 01/31/20 07:29 68 20 95 01/31/20 06:24 36.5 C 64 117/64 93 01/31/20 05:54 36.5 C 66 119/52 L 91 01/31/20 05:24 36.6 C 0 L 111/58 L 93 01/31/20 05:23 63 20 94 01/31/20 04:53 36.7 C 73 121/54 L 91 01/31/20 04:33 36.6 C 72 112/58 L 92 01/31/20 04:00 68 108/49 L 01/31/20 03:54 36.6 C 0 L 118/65 95 01/31/20 03:24 36.6 C 65 122/63 95 01/31/20 02:54 36.7 C 70 123/61 95 01/31/20 02:23 36.7 C 75 118/58 L 94 01/31/20 01:54 36.7 C 75 122/61 95 01/31/20 01:24 36.7 C 73 124/67 94 01/31/20 00:54 36.7 C 81 20 137/61 95 01/31/20 00:23 36.7 C 70 134/68 95 01/31/20 00:00 68 106/60 01/30/20 23:53 36.7 C 67 132/65 95 01/30/20 23:23 36.8 C 63 123/68 95 01/30/20 22:53 36.9 C 73 133/58 L 94 01/30/20 22:23 36.9 C 87 121/58 L 93 PG Care Time/CCT Total # of Minutes Spent Total Time Spent with Patient: Total time spent is greater than 50% in coordination of care (as documented) at patient's floor/unit and/or counseling patient: Coding Level of Care Code 47648 Subseq Hosp Care Lvl 3 Diagnoses Duodenal ulcer K26.9
[2020-01-31] MEDS: ROFLUMILAST 500 MCG TAB PO SCH (10:26)
--- NOTE | 2020-01-31 10:36 | Critical Care Progress Note ---
Date of Service January 31, 2020 Assessment & Plan (1) Acute GI bleeding: (2) NOLBERTO (acute kidney injury): (3) History of tobacco use disorder: (4) Stage 4 very severe COPD by GOLD classification: Impression: 59-year-old male with very severe obstructive lung disease. He was initially admitted with COPD exacerbation requiring mechanical ventilation. He was extubated and transferred to the floor. He was transferred back to the ICU 01/28 early in the morning with hemodynamically significant active GI bleed requiring intensive resuscitation. 24-hour events: Patient remains intubated in the ICU. Remained hemodynamically unstable and was requiring higher dose norepinephrine and we had to initiate vasopressin as well. He has had some improvement in his hemodynamics and we have been able to calm down on norepinephrine overnight. Urine output is adequate. Kidney functions improving Recommendations NEURO: Continue sedation with Versed, fentanyl, and propofol for now. We will keep sedated pending improvement in the patient's hemodynamic status and documentation of stable hemoglobin and hematocrit. CARDIAC: Known ejection fraction of anywhere between 20 and 45%. Now with hypovolemic shock however the patient has remained persistently hypotensive despite correction of his volume status. Troponin was mildly elevated and it certainly possible during his profound anemia that he could have had another cardiac event. He is not a candidate for anticoagulation. Follow-up echocardiogram is pending. We will continue to wean pressors as tolerated. He is maintained on steroids for his obstructive lung disease so no suspicion for relative adrenal insufficiency RESPIRATORY: Advanced obstructive lung disease with ongoing tobacco abuse. Continue steroids although that certainly could have contributed to his duodenal ulcer. Chest x- ray remains clear. Continue Perforomist and budesonide. Continue Mucinex. Likely require extubation to his home trilogy. Initiate diuresis and follow GI: Status post urgent EGD with treatment of duodenal ulcer. Continue IV PPI per GI. Continue serial hemoglobin and hematocrit as well as maintaining platelet and INR counts. Keep n.p.o. for now. No OG tube for 24 hours per GI notes. Keep n.p.o. for now pending improvement in the patient's hemodynamics RENAL/LYTES: Acute renal failure: Suspect hypovolemic/prerenal ATN. Improving today. Continue to follow. Start diuretics : Continue Rand catheter ENDO: Continue glycemic control per protocol. Keep Solu-Medrol at 40 mg daily. HEME: Continue serial hemoglobin and hematocrit. ID: Patient was initially on amoxicillin for COPD exacerbation. Antibiotics can be discontinued at this point time. We may consider a azithromycin if his QTC is controlled for management of his obstructive lung disease. LINES/IV ACCESS: Central line, left femoral arterial line, Rand catheter, endotracheal tube CODE STATUS: Patient stated he would not want compressions or shocks in the event of a cardiac arrest but was agreeable to intubation for the EGD. DVT PROPHYLAXIS: On hold due to GI bleed Patient is critically ill and will remain in the ICU at this point time. Discussed with ICU nurse at bedside. Spouse updated by phone. Oliver has stated before his desire to not pursue aggressive long-term care. The patient's , Ty, states that his quality of life before this was very poor and she could not see him going on in his current state. I advised her that the current events are unlikely to make him better. She expressed understanding. She states she does not want to see him suffer or be maintained in an artificial state for any prolonged period of time. She is willing to continue supportive care for the next 24 hours however if he does not make significant progress by tomorrow, she would likely state that Oliver would want to be allowed to pass naturally and be made comfortable. 40 minutes critical care time evaluating managing patient including end-of-life discussion. Prognosis for functional recovery is somewhat guarded given the patient's advanced underlying cardiac and pulmonary disease. (5) Systolic congestive heart failure with reduced left ventricular function, NYHA class 2: (6) Ischemic heart disease: (7) Non-ST elevated myocardial infarction (non-STEMI): (8) Elevated lactic acid level: (9) Hypotension: (10) Hypovolemic shock: Admission and Anticipated Discharge Date Admission Date: January 22, 2020 Subjective Patient remains intubated and sedated. Review of Systems Review of Systems: Unobtainable due to endotracheal tube Physical Exam Constitutional: + mechanically ventilated and + overweight intubated and sedted Neck: trachea midline, no thyromegaly Respiratory: normal respiratory effort Cardiovascular: RRR, no murmur, no edema Gastrointestinal (Abdomen): normal bowel sounds, soft, nontender, no hepatosplenomegaly Musculoskeletal: Extremities: extremities normal to inspection Skin: no rashes, warm and dry Lymphatic: no cervical lymphadenopathy Results & Data Results & Data ([facility]) Vital Signs (Past 12 Hours) Vital Signs Temp Pulse Resp BP Pulse Ox 01/31/20 08:00 68 01/31/20 07:29 68 20 95 01/31/20 06:24 36.5 C 64 117/64 93 01/31/20 05:54 36.5 C 66 119/52 L 91 01/31/20 05:24 36.6 C 0 L 111/58 L 93 01/31/20 05:23 63 20 94 01/31/20 04:53 36.7 C 73 121/54 L 91 01/31/20 04:33 36.6 C 72 112/58 L 92 01/31/20 04:00 68 108/49 L 01/31/20 03:54 36.6 C 0 L 118/65 95 01/31/20 03:24 36.6 C 65 122/63 95 01/31/20 02:54 36.7 C 70 123/61 95 01/31/20 02:23 36.7 C 75 118/58 L 94 01/31/20 01:54 36.7 C 75 122/61 95 01/31/20 01:24 36.7 C 73 124/67 94 01/31/20 00:54 36.7 C 81 20 137/61 95 01/31/20 00:23 36.7 C 70 134/68 95 01/31/20 00:00 68 106/60 01/30/20 23:53 36.7 C 67 132/65 95 01/30/20 23:23 36.8 C 63 123/68 95 01/30/20 22:53 36.9 C 73 133/58 L 94 Laboratory Results 01/31/20 04:36 01/31/20 04:36 01/28/20 08:45 ABG pH Cancelled ABG pCO2 Cancelled ABG pO2 Cancelled ABG HCO3 Cancelled ABG O2 Saturation Cancelled ABG Base Excess Cancelled Most recent blood gas showed a pH 7.34 with PCO2 of 44 and PO2 of 72. Calcium is 8.2 Magnesium 2.8 AST and ALT as well as alk phos are decreasing Troponin 0 0.46 Albumin 3.0 Diagnostic Findings Chest x-ray from today was reviewed. The lungs are relatively rare aerated without focal airspace opacity. Tubes and lines in good position Echocardiogram is pending. Coding Level of Care Code Critical Care 1st 30-74 mins Diagnoses Acute GI bleeding K92.2 NOLBERTO (acute kidney injury) N17.9 History of tobacco use disorder Z87.891 Stage 4 very severe COPD by GOLD classification J44.9 Systolic congestive heart failure with reduced left ventricular function, NYHA class 2 I50.20 Ischemic heart disease I25.9 Non-ST elevated myocardial infarction (non-STEMI) I21.4 Elevated lactic acid level R79.89 Hypotension I95.9 Hypovolemic shock R57.1
--- NOTE | 2020-01-31 11:09 | Pharmacy Report ---
Glycemic Control Progress Note - Date of Service January 31, 2020 - Scope Glycemic Pharmacist consulted for glycemic control to write orders per [facility] inpatient glycemic control protocol. - Objective Accuchecks BSG(last 24 hours):: 01/30/20 01/30/20 01/30/20 11:12 17:33 20:07 Glucose 217 H POC Glucose (other) 180 H 190 H 01/31/20 01/31/20 01/31/20 00:09 04:36 05:36 Glucose 198 H POC Glucose (other) 211 H 192 H 01/31/20 08:23 Glucose POC Glucose (other) 185 H HbA1c:: Hemoglobin A1c 5.9 % (4.5-5.6) H 01/23/20 05:40 - Recent Pertinent Medications The patient is currently receiving: * Basal insulin: Lantus 0 units every 24 hours * Correctional Insulin: Novolog Correction per scale ACHS Goal Range: Low 110 mg/dL - High 140 mg/dL Correction Factor: 25 mg/dL/unit * Prandial insulin: Per carb ratio of 1 unit per 20 grams CHO consumed - Outpatient Anti-Diabetic Meds N/A - Assessment & Plan ASSESSMENT: * See progress note from 01/30/20 for more background info, in short: * Pt receiving SQ basal bolus insulin regimen for hyperglycemia secondary to Methylprednisolone 40 mg IV q8 hours and Levophed + Vasopressin. * Patient is currently receiving an average of 9 units of insulin per day * 0 units of basal insulin * 9 units of prandial/correctional insulin * BSGs ranging 179 - 211 mg/dl over the past 24hrs * Changes needed to insulin regimen: * AM Fasting BSG = 185 mg/dl. This is slightly goal range for patient based on inpatient targets and co-morbidities. Pending order available for insulin infusion if 2 consecutive BSGs > 200 mg/dL. * Post-prandial BSGs are stable. Change to q4 checks to attempt to keep BSG < 200 mg/dL. Tighten CF slightly. * Total daily dose = <10 units. PLAN FOR INPATIENT GLYCEMIC CONTROL: * TIGHTENING correction factor to 20 mg/dl/unit * Continuing carb ratio of 1 unit per 7 grams CHO consumed * Continuing goal range of Low 110 mg/dL - High 140 mg/dL * Please note that the plan above was derived based on current level of insulin resistance and hospital stress. These recommendations are appropriate for inpatient admission only. Plan of care upon discharge will need to be reassessed to avoid potential outpatient hypo/hyperglycemia. Thank you.
--- NOTE | 2020-01-31 16:00 | Post Operative Brief Note ---
Cardiology Brief Post Op Date of Surgery January 31, 2020 Pre & Post Diagnosis Operation Date: 01/29/20 11:10 Preprocedure diagnosis: Persistent hypotension, history of left ventricular systolic dysfunction Postprocedure diagnosis: Undetermined biventricular systolic function Procedure A bedside transthoracic echocardiogram was performed for further assessment of the left ventricular systolic function given history of recent vasopressor dependent hypotension. Despite the administration of the ultrasound enhancement agent Definity, the images remain severely technically limited with the patient supine and on the ventilator. The right ventricular and left ventricular systolic function are therefore inadequately assessed. The inferior vena cava was visualized and did not collapse with inspiration suggestive of an intermediate right atrial pressure in the range of 8 mmHg suggestive of normal to mildly elevated central venous pressure without volume overload or depletion. Results discussed by phone with . Tapper Helper Rosas Pederson, DO Beam Builder Helper not applicable Estimated Blood Loss 0 Findings See Below Complications none
[2020-01-31] MEDS: MIDAZOLAM HCL 125 MG/250 ML BAG IV SCH (18:21)
[2020-01-31] MEDS: NOREPINEPHRINE BIT INJ 16 MG in DEXTROSE 5% 500 ML IV SCH ×2 (18:31→21:40)
--- NOTE | 2020-01-31 19:47 | Hospitalist Progress Note ---
Date of Service January 31, 2020 Assessment & Plan (1) Acute GI bleeding: Hgb dropped to 6.1 Received 8 units PRBC and 3 units cryoprecipitate, 2 units platelets Gastro on board S/P EGD done today duodenal ulcer with actively spurting hemorrhage was found in the duodenal bulb, Injected with epinephrine and clip Most recent hgb 10.4 today GI recommended to hold on plavix for at least 7 days and no NSAIDs NO NG tube for 48hr, but if remain intubated can insert a dubhoff tube for feedi ng Continue IV PPI for 72 hrs, then PPI PO BID for 3 months Continue monitor CBC (2) Stage 4 very severe COPD by GOLD classification: management as outlined above (3) Acute on chronic respiratory failure with hypoxia and hypercapnia: due to CPD exacerbation ABG on admission with pH 7 and Pco2 97 S/P intubation with mechanical vent Extubated 01/23/2020 and has been stable Remained intubated after the EGD Pulm on board and recommended to continue Augmentin for total 7 days, complete course on 01/29/20 Continue IV steroid for now and Roflumilast 500mcg QD Continue neb treatment Follow up with Dr Metzger in Pulm clinic Will need insurance coverage to get his meds Continue monitor in the ICU (4) Hypotension: Possible related to hypovolemia shock due to acute GI bleeding Cannot rule out sepsis Continue on pressor with levophed IV abx with unasyn discontinued (5) Transaminitis: Mostly related to hypovolemic shock AST increased to 1177, now continue trending down to 213 ALT increased to 1221, now trending to 1186-->977 Continue monitor liver enzymes (6) Systolic congestive heart failure with reduced left ventricular function, NYHA class 2: Echo on 01/22 showed left ventricular systolic function is severely reduced with ejection fraction 15 to 20%. Repeat echo on 01/23 showed left ventricular systolic function is mildly reduced with ejection fraction 45 (approx baseline) Possible due to stress induced cardiomyopathy due to hypoxia and respiratory failure Continue to hold Lasix and lisinopril since creatinine worsening and hypotension ASA and Plavix on hold due to GI bleed (7) Acute metabolic encephalopathy: Due to respiratory failure with hypoxia Currently sedated and intubated Elevated troponin : possible due to demand ischemia due to hypoxia respiratory failure no evidence of acute coronary event ECHO showed no wall motion abnormality Continue statin, plavix and aspirin (8) NOLBERTO (acute kidney injury): Creatinine 1.6 admission Creatinine worsening to 3.5, now trending down 2.3-->1.9 Continue to hold lisinopril and lasix Might consider Nepho consult if creatinine worsening Continue monitor BMP (9) Elevated lactic acid level: Possible related to hypovolemic shock and hypoxia Elevated procalcitonin Lactic acid increased to 6.3, now normalized Iv abx was discontinued today Continue monitor (10) History of tobacco use disorder: Relapsed Counseling on smoking cessation Admission and Anticipated Discharge Date Admission Date: January 22, 2020 Subjective Pt was seen and examined Sedated and intubated on vent support Look comfortable on fentanyl drip and Versed Continue to require Levophed Physical Exam Physical Exam: General- Mechanical ventilation support Head- atraumatic Eyes- PERRL, EOMI, ENT- Intubated Neck- supple, no JVD Lungs- +mild wheezing Heart- regular rhythm; no murmur Abdomen- normal bowel sounds, soft, nontender Extremities- no calf tenderness Neuro- Sedated Skin- warm & dry Results & Data Results & Data ([facility]) Vital Signs (Past 12 Hours) Vital Signs Temp Pulse Resp BP Pulse Ox 01/31/20 17:30 36.6 C 58 L 92 01/31/20 17:24 36.6 C 60 137/62 93 01/31/20 17:00 36.6 C 65 01/31/20 16:54 36.6 C 60 142/69 H 93 01/31/20 16:30 36.6 C 59 L 93 01/31/20 16:24 36.6 C 55 L 124/66 94 01/31/20 16:22 57 L 20 95 01/31/20 16:00 36.5 C 59 L 102/89 95 01/31/20 15:54 36.5 C 65 131/62 95 01/31/20 15:30 36.5 C 60 95 01/31/20 15:25 36.5 C 62 126/59 L 95 01/31/20 15:00 36.5 C 60 93 01/31/20 14:54 36.5 C 60 122/59 L 95 01/31/20 14:30 36.4 C L 60 94 01/31/20 14:24 36.4 C L 60 131/56 L 95 01/31/20 14:00 36.4 C L 60 96 01/31/20 13:54 36.4 C L 52 L 122/61 95 01/31/20 13:30 36.4 C L 63 96 01/31/20 13:24 36.4 C L 60 123/60 96 01/31/20 13:14 63 20 96 01/31/20 13:00 36.4 C L 58 L 97 01/31/20 12:54 36.4 C L 58 L 121/66 96 01/31/20 12:30 36.5 C 52 L 96 01/31/20 12:24 36.5 C 63 112/52 L 94 01/31/20 12:00 36.5 C 60 95 01/31/20 11:54 36.5 C 62 120/57 L 96 01/31/20 11:30 36.5 C 67 94 01/31/20 11:24 36.5 C 57 L 128/56 L 95 01/31/20 11:00 36.4 C L 62 94 01/31/20 10:54 36.5 C 59 L 122/53 L 95 01/31/20 10:30 36.3 C L 62 95 01/31/20 10:24 36.4 C L 58 L 20 129/58 L 97 01/31/20 10:00 36.4 C L 57 L 96 01/31/20 09:54 36.4 C L 60 121/59 L 95 01/31/20 09:30 36.5 C 59 L 95 01/31/20 09:24 36.5 C 56 L 113/53 L 95 01/31/20 09:00 36.5 C 61 95 01/31/20 08:54 36.5 C 63 123/53 L 94 01/31/20 08:30 36.5 C 66 94 01/31/20 08:24 36.5 C 66 109/58 L 93 01/31/20 08:00 36.5 C 60 95 01/31/20 07:54 36.6 C 64 119/57 L 93
[2020-01-31] MEDS: IPRATROPIUM BROMIDE NEB SOLN 0.02% 2.5 ML VIAL INH PRN (22:08)
[2020-01-31] MEDS: LEVALBUTEROL 1.25MG/0.5ML NEB INH PRN (22:08)
[2020-02-01] MEDS: INSULIN ASPART 100 UNITS/ML 3 ML PEN SC SCH ×7 (00:49→23:49)
[2020-02-01] MEDS: methylPREDNISolone 40 MG in SYRINGE 0 ML IV SCH (03:46)
[2020-02-01] MEDS: PANTOprazole 40 MG in DEXTROSE 5% 100 ML IV SCH (04:16)
[2020-02-01 04:46] LABS: Hematocrit (blood only) 29.5 % (42-52); Hemoglobin 9.7 g/dL (14.0-18.0); Mean Corpuscular Hemoglobin 28.8 pg (25-34); Mean Corpuscular Hgb Conc 32.9 g/dL (32-36); Mean Corpuscular Volume 87.5 fL (80-100); Mean Platelet Volume 10.5 fL (7.4-10.4); Nucleated RBC # (auto) 1.01 K/uL (0-0); Nucleated RBC % (auto) 5.5 %; Platelet Count 150 K/uL (130-400); RDW Coefficient of Variation 16.4 % (11.5-14.5); RDW Standard Deviation 51.8 fL (36.4-46.3); Red Blood Count 3.37 M/uL (4.7-6.1); White Blood Count 18.21 K/uL (4.8-10.8)
[2020-02-01 05:06] LABS: Albumin Level 2.9 gm/dl (3.4-5.0); BUN Creatinine Ratio 79.5 (10-20); Calcium 8.5 mg/dl (8.5-10.1); Creatinine Clr Calc Pharmacy 90.4 ml/min; Est GFR (African American) 83.5; Magnesium 3.2 mg/dl (1.8-2.4); Potassium 4.7 mmol/L (3.5-5.1)
[2020-02-01 05:14] LABS: Albumin Globulin Ratio 1.3 (0.9-2); Basophils # (auto) 0.01 K/uL (0-0.2); Basophils % (auto) 0.1 %; Bilirubin,Total 0.5 mg/dl (0.2-1); Globulin 2.2 gm/dl (2.5-4.0); Immature Granulocytes % (auto) 2.2 %; Lymphocytes # (auto) 2.41 K/uL (1.2-3.4); Lymphocytes % (auto) 13.2 %; Monocytes # (auto) 0.59 K/uL (0.11-0.59); Monocytes % (auto) 3.2 %; Neutrophils % (auto) 81.3 %; Pappenheimer Bodies 1+; Phosphorus 2.5 mg/dl (2.5-4.9); Polychromasia 1+; Total Protein 5.1 gm/dl (6.4-8.2)
[2020-02-01 05:24] LABS: iSTAT Art Bld Gas pCO2 Correct 43 mmHg (35-46); iSTAT Art Bld Gas pH Corrected 7.403 (7.35-7.45); iSTAT Arterial Blood Gas HCO3 27 meg/L (19-24); iSTAT Arterial Blood Gas pCO2 44 mmHg (35-46); iSTAT Arterial Blood Gas pO2 59 mmHg (80-95); iSTAT Arterial Blood Gas pO2 C 57; iSTAT Carbon Dioxide 28 mmol/L (24-31); iSTAT FiO2 30 %; iSTAT Hematocrit 28 % (42-52); iSTAT Hemoglobin 9.5 g/dl (14.0-18.0); iSTAT Potassium 4.8 mmol/L (3.3-5.0); iSTAT Site Art Line; iSTAT Sodium 144 mmol/L (135-144)
[2020-02-01] MEDS: FORMOTEROL 20 MCG/2 ML VIAL NEB SCH ×2 (07:43→18:55)
[2020-02-01] MEDS: BUDESONIDE 0.5 MG/2 ML VIAL (PULMICORT) NEB SCH ×2 (07:43→18:55)
--- NOTE | 2020-02-01 08:51 | Critical Care Progress Note ---
Date of Service February 01, 2020 Assessment & Plan (1) Acute GI bleeding: (2) NOLBERTO (acute kidney injury): (3) History of tobacco use disorder: (4) Stage 4 very severe COPD by GOLD classification: Impression: 59-year-old male with very severe obstructive lung disease. He was initially admitted with COPD exacerbation requiring mechanical ventilation. He was extubated and transferred to the floor. He was transferred back to the ICU 01/28 early in the morning with hemodynamically significant active GI bleed requiring intensive resuscitation. 24-hour events: Patient has been off vasopressin. On low-dose Levophed currently along with fentanyl. -- VDRF Multifactorial component of systolic plus diastolic, severe COPD Continue with ventilatory support Keep RASS -1 Daily sedation holidays and SBT's Chlorhexidine mouthwash -- Acute blood loss anaemia Likely secondary to duodenal ulcer status post EGD Continue with IV PPI Transfuse as needed to keep hemoglobin greater than 7 Monitor H&H --Acute kidney injury BUN/creatinine improving Avoid nephrotoxic medication Strict in and out --Elevated LFTs Likely shock liver Improving Monitor --Severe COPD Continue with inhaled bronchodilators --Systolic CHF Blood pressure medication on hold Will gradually resume diuretic as tolerated. --Morbid obesity with possible ERLINDA --Prophylaxis VTE: None GI: Protonix IV Lines: Left femoral arterial, central, Rand catheter Diet: N.p.o. Plan: In/out: -1.9 L, urine output 3177 ABG 7.34/44/59 on 30%, FiO2 increased to 40% Patient has been off vasopressin. He is on low-dose Levophed 0.03. On fentanyl 100 and midazolam 2.5. Patient is answering simple questions. His NIF -20 Trial of extubation to BiPAP today Decrease Solu-Medrol to daily. Continue with beta agonist and inhaled budesonide. Case was discussed with patient's . She will be held in the afternoon. She is agreeable to extubation trial. If the patient fails no reintubation as per patient's initial wishes. I have personally spent 47 minutes of critical care time in the direct management of this patient. This is a life/limb threatening event. This includes time spent evaluating patient, direct bedside care, chart review, placing orders, interpretation of diagnostic studies, discussion with consultants, patient, and family members, as well as other required patient management activities. This time is exclusive of all separately billable procedures, and teaching time and separate from and in addition to any other critical care service time. Please note the above document was generated using voice recognition software. It may contain grammatical, syntax or spelling errors. (5) Systolic congestive heart failure with reduced left ventricular function, NYHA class 2: (6) Ischemic heart disease: (7) Non-ST elevated myocardial infarction (non-STEMI): (8) Elevated lactic acid level: (9) Hypotension: (10) Hypovolemic shock: Admission and Anticipated Discharge Date Admission Date: January 22, 2020 Subjective Patient seen and examined at bedside. No acute distress, no adverse events overnight. Patient is on midozalam 2.5, fentanyl 100, Levophed 0.03 at the time of examination. He is following commands. He is answering simple questions. Denies any chest pain. Once the tube out. Review of Systems Review of Systems: All systems reviewed & are unremarkable except as noted in Subjective Physical Exam Physical Exam: Constitutional: No acute distress HEENT: EOMI, PERRLA, positive ETT Respiratory system: Decreased air entry bilaterally, no wheeze, no rhonchi, mild crackles bilateral lower lobes CVS: S1-S2 positive, no murmurs or gallops Abdomen: Soft, nontender, nondistended, positive bowel sounds x4 Extremities: +2 pulses bilaterally radialis/ dorsalis pedis, no cyanosis, positive ankle edema Neuro: Awake alert, answering simple questions following simple commands Psych: Normal mood and affect G/U: Positive Rand Skin: no rashes, warm and dry Lymphatic: no cervical or axillary lymphadenopathy Results & Data Results & Data ([facility]) Vital Signs (Past 12 Hours) Vital Signs Temp Pulse Resp BP Pulse Ox 02/01/20 07:38 62 20 96 02/01/20 06:30 36.5 C 67 20 104/59 L 96 02/01/20 06:00 36.5 C 61 20 96 02/01/20 05:30 36.5 C 68 20 95 02/01/20 05:02 71 20 91 02/01/20 05:00 36.5 C 72 20 103/58 L 91 02/01/20 04:30 36.5 C 75 20 114/61 91 02/01/20 04:00 36.5 C 66 20 118/58 L 90 02/01/20 03:30 36.5 C 65 20 118/58 L 90 02/01/20 03:00 36.5 C 60 123/62 90 02/01/20 02:30 36.6 C 60 20 90 02/01/20 02:00 36.6 C 66 20 120/60 91 02/01/20 01:52 73 20 90 02/01/20 01:30 36.7 C 68 20 90 02/01/20 01:00 36.8 C 73 20 124/62 90 02/01/20 00:30 36.8 C 72 20 90 02/01/20 00:00 36.7 C 66 20 139/68 92 01/31/20 23:30 36.7 C 63 20 132/67 96 01/31/20 23:00 36.7 C 72 20 134/70 95 01/31/20 22:08 56 L 20 97 01/31/20 22:00 36.7 C 66 96 01/31/20 21:24 36.6 C 56 L 145/67 H 95 01/31/20 21:00 36.6 C 63 93 01/31/20 20:54 36.6 C 54 L 143/67 H 97 02/01/20 04:12 02/01/20 04:12 Coding Level of Care Code Critical Care 1st 30-74 mins Diagnoses Acute GI bleeding K92.2 NOLBERTO (acute kidney injury) N17.9 History of tobacco use disorder Z87.891 Stage 4 very severe COPD by GOLD classification J44.9 Systolic congestive heart failure with reduced left ventricular function, NYHA class 2 I50.20 Ischemic heart disease I25.9 Non-ST elevated myocardial infarction (non-STEMI) I21.4 Elevated lactic acid level R79.89 Hypotension I95.9 Hypovolemic shock R57.1 Time Spent (min) 47
--- NOTE | 2020-02-01 08:51 | Communication Note ---
Date of Service: February 01, 2020 Chart reviewed. HGB stable. No BM documented since 01/30/20. GI to sign off. Please recall if needed - If any evidence of rebleeding, may consider repeat endoscopy but unlikely it will significantly change mgmt given adequate initial therapy. Hold Plavix for a total of 7 days. Monitor H/H. May use a Dubhoff tube for feeding if patient remains on mechanical ventilation. No non-steroidal anti-inflammatory drugs. Use a proton pump inhibitor IV daily for 3 days then PO BID for 3 months.
[2020-02-01] MEDS ORDERED: methylPREDNISolone 40 MG in SYRINGE 0 ML IV SCH (09:00)
--- NOTE | 2020-02-01 11:17 | Pharmacy Report ---
Pharmacy Glycemic Short Note 2 - Date of Service February 01, 2020 - Glycemic Short BSG Results (Last 24 hours): 01/31/20 01/31/20 01/31/20 12:08 16:56 19:50 Glucose POC Glucose (other) 179 H 170 H 158 H 02/01/20 02/01/20 02/01/20 00:01 03:43 04:12 Glucose 133 H POC Glucose (other) 159 H 139 H 02/01/20 08:18 Glucose POC Glucose (other) 118 H OUTPATIENT ANTIDIABETIC REGIMEN: * n/a * A1c = 5.9% 01/23/20 ASSESSMENT: * "Pre-diabetic" admitted to ICU for ABLA from UGIB requiring vasopressors and intubation. * This AM: patient may be extubated, steroids are being titrated down, norepi is being titrated down, vasopressin already off, pantoprazole drip (mixed in D5w) was converted to IV BID. Patient remains NPO. * BSGs well controlled over last 24 hrs. He has required minimal doses of SQ correction. Expect that patient's insulin needs will decrease with lessening stressors. PLAN FOR INPATIENT GLYCEMIC CONTROL: * Basal insulin * None at this time * Bolus insulin * NovoLog per scale Q 4 hrs * Goal Range: Low 110 mg/dL - High 140 mg/dL * Correction Factor: 20 mg/dL/unit * Nutritional / Prandial insulin per carb ratio of 1 unit per 7 grams CHO consumed
[2020-02-01] MEDS: NOREPINEPHRINE BIT INJ 16 MG in DEXTROSE 5% 500 ML IV SCH (12:50)
[2020-02-01] MEDS: fentaNYL DRIP 1,250 MCG/250 ML BAG IV SCH ×3 (12:50→17:14)
[2020-02-01] MEDS: ROFLUMILAST 500 MCG TAB PO SCH (12:51)
--- NOTE | 2020-02-01 20:18 | Hospitalist Progress Note ---
Date of Service February 01, 2020 Assessment & Plan (1) Acute GI bleeding: Hgb dropped to 6.1 Received 8 units PRBC and 3 units cryoprecipitate, 2 units platelets Gastro on board S/P EGD done showed duodenal ulcer with actively spurting hemorrhage was found in the duodenal bulb, Injected with epinephrine and clip Most recent hgb 10.4 today GI recommended to hold on plavix for at least 7 days and no NSAIDs NO NG tube for 48hr, but if remain intubated can insert a dubhoff tube for fee ding Continue IV PPI for 72 hrs, then PPI PO BID for 3 months Hgb 9.7 today Continue monitor CBC (2) Stage 4 very severe COPD by GOLD classification: (3) Acute on chronic respiratory failure with hypoxia and hypercapnia: due to CPD exacerbation ABG on admission with pH 7 and Pco2 97 S/P intubation with mechanical vent Extubated 01/23/2020 and has been stable was re-intubated after the EGD, then extubated today Pulm on board and recommended Completed course of Abx Continue IV steroid for now and Roflumilast 500mcg QD Continue neb treatment Follow up with Dr Metzger in Pulm clinic Will need insurance coverage to get his meds Continue monitor in the ICU (4) Hypotension: Possible related to hypovolemia shock due to acute GI bleeding Cannot rule out sepsis Pressors discontinued today IV abx with unasyn discontinued BP remains stable (5) Transaminitis: Mostly related to hypovolemic shock AST increased to 1177, now continue trending down to 213-->105 ALT increased to 1221, now trending to 1186-->977-->713 ALK phos 37 Continue monitor liver enzymes (6) Systolic congestive heart failure with reduced left ventricular function, NYHA class 2: Echo on 01/22 showed left ventricular systolic function is severely reduced with ejection fraction 15 to 20%. Repeat echo on 01/23 showed left ventricular systolic function is mildly reduced with ejection fraction 45 (approx baseline) Possible due to stress induced cardiomyopathy due to hypoxia and respiratory failure Continue to hold Lasix and lisinopril since creatinine worsening and hypotension ASA and Plavix on hold due to GI bleed cardio on board (7) Acute metabolic encephalopathy: Due to respiratory failure with hypoxia Currently sedated and intubated Elevated troponin : possible due to demand ischemia due to hypoxia respiratory failure no evidence of acute coronary event ECHO showed no wall motion abnormality Continue statin, plavix and aspirin (8) NOLBERTO (acute kidney injury): Creatinine 1.6 admission Creatinine worsening to 3.5, now trending down 2.3-->1.9-->1.1 Continue to hold lisinopril and lasix Might consider Nepho consult if creatinine worsening Continue monitor BMP resolved (9) Elevated lactic acid level: Possible related to hypovolemic shock and hypoxia Elevated procalcitonin Lactic acid increased to 6.3, now normalized Iv abx was discontinued today Continue monitor (10) History of tobacco use disorder: Relapsed Counseling on smoking cessation Admission and Anticipated Discharge Date Admission Date: January 22, 2020 Subjective Pt was seen and examined Lying in bed with no distress He was extubated this morning and has been off pressor Pt said that his breathing feels much better He is asking when he will be discharged Denies any chest pain, palpitation, dizziness and fever Physical Exam Physical Exam: General- Mechanical ventilation support Head- atraumatic Eyes- PERRL, EOMI, ENT- s/p extubated, on NC Neck- supple, no JVD Lungs- +mild wheezing Heart- regular rhythm; no murmur Abdomen- normal bowel sounds, soft, nontender Extremities- no calf tenderness Neuro- Sedated Skin- warm & dry Results & Data Results & Data ([facility]) Vital Signs (Past 12 Hours) Vital Signs Temp Pulse Pulse Resp BP Pulse Ox 02/01/20 18:54 85 20 94 02/01/20 18:00 36.8 C 87 151/88 H 95 02/01/20 17:18 36.7 C 80 150/96 H 94 02/01/20 17:00 36.7 C 77 93 02/01/20 16:18 36.6 C 69 120/86 93 02/01/20 16:00 36.6 C 68 95 02/01/20 14:00 36.6 C 80 16 91 02/01/20 13:18 36.6 C 83 18 129/82 90 02/01/20 13:00 36.6 C 70 16 96 02/01/20 12:19 36.6 C 74 16 117/76 92 02/01/20 12:00 36.6 C 88 18 96 02/01/20 11:18 36.7 C 73 18 117/66 94 02/01/20 11:00 36.7 C 78 16 94 02/01/20 10:19 36.8 C 80 16 138/63 93 02/01/20 10:00 36.8 C 72 18 93 02/01/20 09:18 36.7 C 77 14 123/73 94 02/01/20 09:00 36.7 C 72 16 97
[2020-02-01] MEDS: PANTOprazole 40 MG in SYRINGE 0 ML IV SCH (20:38)
[2020-02-02 05:08] LABS: Prothrombin Time 10.9 Seconds (9.0-12.0)
[2020-02-02] MEDS: INSULIN ASPART 100 UNITS/ML 3 ML PEN SC SCH ×5 (05:10→21:15)
[2020-02-02 05:19] LABS: Hematocrit (blood only) 31.4 % (42-52); Mean Corpuscular Hemoglobin 28.7 pg (25-34); Mean Corpuscular Hgb Conc 31.8 g/dL (32-36); Mean Platelet Volume 10.4 fL (7.4-10.4); Nucleated RBC # (auto) 0.43 K/uL (0-0); Platelet Count 176 K/uL (130-400); RDW Coefficient of Variation 16.4 % (11.5-14.5); RDW Standard Deviation 52.2 fL (36.4-46.3); Red Blood Count 3.49 M/uL (4.7-6.1); White Blood Count 21.22 K/uL (4.8-10.8)
[2020-02-02 05:42] LABS: Basophilic Stippling 1+; Basophils # (auto) 0.03 K/uL (0-0.2); Basophils % (auto) 0.1 %; Immature Granulocytes # (auto) 0.51 K/uL (0.00-0.02); Immature Granulocytes % (auto) 2.4 %; Lymphocytes % (auto) 13.2 %; Monocytes # (auto) 0.46 K/uL (0.11-0.59); Monocytes % (auto) 2.2 %; Neutrophils # (auto) 17.42 K/uL (1.4-6.5); Neutrophils % (auto) 82.1 %; Pappenheimer Bodies 1+; Polychromasia 1+
[2020-02-02 05:56] LABS: Albumin Level 2.9 gm/dl (3.4-5.0); BUN Creatinine Ratio 68.9 (10-20); Calcium 8.2 mg/dl (8.5-10.1); Creatinine Clr Calc Pharmacy 118.4 ml/min; Est GFR (African American) 111.9; Est GFR (Non-African American) 96.5; Potassium 4.2 mmol/L (3.5-5.1)
[2020-02-02 06:07] LABS: Albumin Globulin Ratio 1.4 (0.9-2); Bilirubin,Total 0.5 mg/dl (0.2-1); Globulin 2.1 gm/dl (2.5-4.0); Phosphorus 3.2 mg/dl (2.5-4.9)
[2020-02-02] MEDS: FORMOTEROL 20 MCG/2 ML VIAL NEB SCH ×2 (07:11→19:04)
[2020-02-02] MEDS: BUDESONIDE 0.5 MG/2 ML VIAL (PULMICORT) NEB SCH ×2 (07:11→19:04)
--- NOTE | 2020-02-02 07:20 | Critical Care Progress Note ---
Date of Service February 02, 2020 Assessment & Plan (1) Acute GI bleeding: (2) NOLBERTO (acute kidney injury): (3) History of tobacco use disorder: (4) Stage 4 very severe COPD by GOLD classification: Impression: 59-year-old male with very severe obstructive lung disease. He was initially admitted with COPD exacerbation requiring mechanical ventilation. He was extubated and transferred to the floor. He was transferred back to the ICU 01/28 early in the morning with hemodynamically significant active GI bleed requiring intensive resuscitation. --Status post VDRF Multifactorial component of systolic plus diastolic, severe COPD Extubated 02/01/2020. Continue with O2 supplementation BiPAP nightly and PRN shortness of breath Keep O2 saturation 88-92% -- Acute blood loss anaemia Likely secondary to duodenal ulcer status post EGD Status post PPI drip, continue with Protonix 40 mg twice daily for 3 months Transfuse as needed to keep hemoglobin greater than 7 Monitor H&H --Status post acute kidney injury BUN/creatinine improving Avoid nephrotoxic medication Strict in and out --Elevated LFTs Likely shock liver Improving Monitor --Severe COPD Continue with inhaled bronchodilators --Systolic CHF Resume blood pressure medications --Morbid obesity with ERLINDA Continue with CPAP nightly and PRN shortness of breath --DNR/DNI --Prophylaxis VTE: None GI: Protonix IV Lines: Right IJ, Rand catheter Diet: Cardiac diabetic Plan: In/out: -1.3 L, urine output 2.2 L Patient clinically doing well. Creatinine function is improved. He is urinating well. We will resume p.o. Lasix. We will resume blood pressure medications gradually as well. Plavix and aspirin can be resumed as of tomorrow and keep a close eye for any signs of bleeding. Decrease Solu-Medrol to 20 mg for 2 days and then stop. Continue with inhaled bronchodilators for his underlying COPD. Patient will benefit from physical therapy. Patient is hemodynamically stable to be downgraded to a medical floor. Please note the above document was generated using voice recognition software. It may contain grammatical, syntax or spelling errors. (5) Systolic congestive heart failure with reduced left ventricular function, NYHA class 2: (6) Ischemic heart disease: (7) Non-ST elevated myocardial infarction (non-STEMI): (8) Elevated lactic acid level: (9) Hypotension: (10) Hypovolemic shock: Admission and Anticipated Discharge Date Admission Date: January 22, 2020 Subjective Patient seen and examined at bedside. No acute distress, no adverse events o vernight. Patient was successfully extubated on 02/01/2020. Patient denies any chest pain, no shortness of breath. Had a bowel movement overnight. No nausea or vomiting. Used CPAP overnight. No headache, no dizziness. Asking when he can go home. Review of Systems Review of Systems: All systems reviewed & are unremarkable except as noted in Subjective Physical Exam Physical Exam: Constitutional: No acute distress HEENT: EOMI, PERRLA, Respiratory system: Decreased air entry bilaterally, no rhonchi, positive crackles bilateral lower lobes, positive expiratory wheeze appreciated mild bilaterally CVS: S1-S2 positive, no murmurs or gallops Abdomen: Soft, nontender, nondistended, positive bowel sounds x4 Extremities: +2 pulses bilaterally radialis/ dorsalis pedis, no cyanosis, +2 pitting edema bilateral lower extremity Neuro: Awake alert oriented x3 Psych: Normal mood and affect G/U: Positive Rand Skin: no rashes, warm and dry Lymphatic: no cervical or axillary lymphadenopathy Results & Data Results & Data ([facility]) Vital Signs (Past 12 Hours) Vital Signs Temp Pulse Resp BP Pulse Ox 02/02/20 06:00 36.9 C 76 18 143/77 H 97 02/02/20 05:30 36.8 C 65 22 96 02/02/20 05:00 37.0 C 76 21 125/80 92 02/02/20 04:30 36.9 C 87 21 92 02/02/20 04:00 37.0 C 75 21 124/86 98 02/02/20 03:30 37.0 C 70 17 97 02/02/20 03:00 37.0 C 66 17 131/76 95 02/02/20 02:30 37.0 C 72 21 96 02/02/20 02:00 37.0 C 67 18 125/70 98 02/02/20 01:30 37.0 C 64 17 99 02/02/20 01:00 37.1 C 65 12 136/73 99 02/02/20 00:30 37.1 C 65 15 99 02/02/20 00:00 37.1 C 72 24 140/80 99 10/12/20 23:30 37.0 C 69 21 97 02/01/20 23:00 37.0 C 63 19 135/72 96 02/01/20 22:30 37.0 C 76 17 97 02/01/20 22:00 36.8 C 74 16 132/75 92 02/01/20 21:30 36.8 C 70 16 94 02/01/20 21:00 36.8 C 73 13 132/82 95 02/01/20 20:30 36.6 C 64 21 97 02/01/20 20:00 36.6 C 69 16 125/84 96 02/01/20 19:30 36.9 C 86 24 94 02/02/20 04:05 02/02/20 04:05 Coding Level of Care Code 49899 Subseq [facility] 3 Diagnoses Acute GI bleeding K92.2 NOLBERTO (acute kidney injury) N17.9 History of tobacco use disorder Z87.891 Stage 4 very severe COPD by GOLD classification J44.9 Systolic congestive heart failure with reduced left ventricular function, NYHA class 2 I50.20 Ischemic heart disease I25.9 Non-ST elevated myocardial infarction (non-STEMI) I21.4 Elevated lactic acid level R79.89 Hypotension I95.9 Hypovolemic shock R57.1
[2020-02-02] MEDS: ROFLUMILAST 500 MCG TAB PO SCH (09:02)
[2020-02-02] MEDS: methylPREDNISolone 20 MG in SYRINGE 0 ML IV SCH (09:02)
[2020-02-02] MEDS: PANTOprazole 40 MG in SYRINGE 0 ML IV SCH ×2 (09:04→20:57)
[2020-02-02] MEDS: UMECLIDINIUM BROMIDE 62.5MCG/BLISTER 7 PUFFS/INHALER INH SCH (12:31)
[2020-02-02] MEDS: FUROSEMIDE 40 MG TAB PO SCH (12:40)
[2020-02-02] MEDS ORDERED: ESCITALOPRAM OXALATE 20 MG TAB PO ONE (14:00)
--- NOTE | 2020-02-02 14:27 | Electrocardiogram Report ---
Test Reason : Blood Pressure : / mmHG Vent. Rate : 096 BPM Atrial Rate : 090 BPM P-R Int : 000 ms QRS Dur : 090 ms QT Int : 344 ms P-R-T Axes : 000 042 -89 degrees QTc Int : 434 ms Possible wandering atrial pacemaker Abnormal ECG When compared with ECG of 29-JAN-2020 02:11, Significant changes have occurred Confirmed by Yash Gonzalez ([id number]) on 02/02/2020 2:27:16 PM Referred By: REFERRED SELF Confirmed By:Yash Gonzalez
[2020-02-02] MEDS: NOREPINEPHRINE BIT INJ 16 MG in DEXTROSE 5% 500 ML IV SCH (19:14)
[2020-02-02] MEDS: fentaNYL DRIP 1,250 MCG/250 ML BAG IV SCH (19:14)
--- NOTE | 2020-02-02 19:40 | Hospitalist Progress Note ---
Date of Service February 02, 2020 Assessment & Plan (1) Acute GI bleeding: Hgb dropped to 6.1 Received 8 units PRBC and 3 units cryoprecipitate, 2 units platelets Gastro on board S/P EGD done showed duodenal ulcer with actively spurting hemorrhage was found in the duodenal bulb, Injected with epinephrine and clip Most recent hgb 10 today GI recommended to hold on plavix for at least 7 days and no NSAIDs NO NG tube for 48hr, but if remain intubated can insert a dubhoff tube for feedi ng Will discontinued IV PPI, then transition to PPI PO BID for 3 months Continue monitor CBC (2) Stage 4 very severe COPD by GOLD classification: management as outlined above (3) Acute on chronic respiratory failure with hypoxia and hypercapnia: due to CPD exacerbation ABG on admission with pH 7 and Pco2 97 S/P intubation with mechanical vent Extubated 01/23/2020 and has been stable was re-intubated after the EGD, then extubated today Pulm on board and recommended Completed course of Abx Will taper solumedrol to 20mg IV x 2 days then d/c Continue Roflumilast 500mcg QD Continue neb treatment Follow up with Dr Metzger in Pulm clinic Will need insurance coverage to get his meds Continue monitor in the ICU (4) Hypotension: Possible related to hypovolemia shock due to acute GI bleeding Cannot rule out sepsis Pressors has been discontinued in the last 24hrs Abx with unasyn discontinued BP remains stable (5) Transaminitis: Mostly related to hypovolemic shock AST increased to 1177, now continue trending down to 213-->105--55 ALT increased to 1221, now trending to 1186-->977-->713-->485 ALK phos 37 Continue monitor liver enzymes (6) Systolic congestive heart failure with reduced left ventricular function, NYHA class 2: Echo on 01/22 showed left ventricular systolic function is severely reduced with ejection fraction 15 to 20%. Repeat echo on 01/23 showed left ventricular systolic function is mildly reduced with ejection fraction 45 (approx baseline) Possible due to stress induced cardiomyopathy due to hypoxia and respiratory failure Continue to hold Lasix and lisinopril since creatinine worsening and hypotension ASA and Plavix on hold due to GI bleed cardio on board CHARLIE done at bedside showed The right ventricular and left ventricular systolic function are therefore inadequately assessed. The inferior vena cava was visualized and did not collapse with inspiration suggestive of an intermediate right atrial pressure in the range of 8 mmHg suggestive of normal to mildly elevated central venous pressure without volume overload or depletion. (7) Acute metabolic encephalopathy: Due to respiratory failure with hypoxia Currently sedated and intubated Elevated troponin : possible due to demand ischemia due to hypoxia respiratory failure no evidence of acute coronary event ECHO showed no wall motion abnormality Continue statin, plavix and aspirin (8) NOLBERTO (acute kidney injury): Creatinine 1.6 admission Creatinine worsening to 3.5, now trending down 2.3-->1.9-->1.1 Continue to hold lisinopril and lasix Might consider Nepho consult if creatinine worsening Continue monitor BMP resolved (9) Elevated lactic acid level: Possible related to hypovolemic shock and hypoxia Elevated procalcitonin Lactic acid increased to 6.3, now normalized Iv abx was discontinued today Continue monitor (10) History of tobacco use disorder: Relapsed Counseling on smoking cessation Elevated WBC Possible related to Steroid WBC 21.2 K Continue monitor CBC Admission and Anticipated Discharge Date Admission Date: January 22, 2020 Subjective Pt was seen and examined Lying in bed with no distress Pt said that he feels a little better today He said that his breathing is much better He does not want to transfer to the floor Denies any chest pain, palpitation, dizziness and fever Physical Exam Physical Exam: General- Mechanical ventilation support Head- atraumatic Eyes- PERRL, EOMI, ENT- s/p extubated, on NC Neck- supple, no JVD Lungs- +faint wheezing Heart- regular rhythm; no murmur Abdomen- normal bowel sounds, soft, nontender Extremities- no calf tenderness Neuro- Sedated Skin- warm & dry Results & Data Results & Data ([facility]) Vital Signs (Past 12 Hours) Vital Signs Temp Pulse Pulse Resp BP Pulse Ox 02/02/20 19:05 77 20 95 02/02/20 18:00 37.3 C 02/02/20 17:30 37.3 C 110 H 15 02/02/20 17:00 37.0 C 112 H 17 02/02/20 16:30 37.0 C 81 21 97 02/02/20 16:18 37.0 C 84 29 H 144/92 H 95 02/02/20 16:00 36.9 C 88 22 97 02/02/20 15:58 36.5 C 02/02/20 15:46 37.1 C 105 H 23 152/90 H 02/02/20 15:30 37.0 C 108 H 25 H 02/02/20 15:00 37.0 C 107 H 17 02/02/20 14:30 37.0 C 92 H 22 02/02/20 14:00 36.9 C 112 H 20 02/02/20 13:30 37.1 C 96 H 16 02/02/20 13:00 37.2 C 110 H 22 02/02/20 12:30 37.2 C 116 H 19 02/02/20 12:00 37.0 C 76 23 92 02/02/20 11:30 37.0 C 74 21 92 02/02/20 11:18 37.0 C 74 29 H 159/81 H 02/02/20 11:15 36.9 C 62 17 145/85 H 02/02/20 11:00 36.9 C 81 39 H 02/02/20 10:30 36.9 C 78 18 02/02/20 10:18 36.9 C 73 18 139/76 97 02/02/20 10:00 36.9 C 66 20 100 02/02/20 09:30 36.9 C 69 16 02/02/20 09:18 36.9 C 71 18 146/80 H 100 02/02/20 09:00 36.9 C 66 15 100 02/02/20 08:30 36.9 C 70 20 02/02/20 08:18 36.9 C 71 22 134/75 95 02/02/20 08:00 36.9 C 72 14
[2020-02-02] MEDS: guaiFENesin 600 MG TABCR PO SCH (21:15)
[2020-02-03] MEDS: IPRATROPIUM BROMIDE NEB SOLN 0.02% 2.5 ML VIAL INH PRN (07:12)
[2020-02-03] MEDS: BUDESONIDE 0.5 MG/2 ML VIAL (PULMICORT) NEB SCH ×2 (07:12→19:06)
[2020-02-03] MEDS: FORMOTEROL 20 MCG/2 ML VIAL NEB SCH ×2 (07:12→19:06)
[2020-02-03] MEDS: LEVALBUTEROL 1.25MG/0.5ML NEB INH PRN (07:13)
[2020-02-03 08:25] LABS: Basophils # (auto) 0.01 K/uL (0-0.2); Basophils % (auto) 0.1 %; Eosinophils # (auto) 0.07 K/uL (0-0.5); Eosinophils % (auto) 0.4 %; Hematocrit (blood only) 31.8 % (42-52); Hemoglobin 10.3 g/dL (14.0-18.0); Immature Granulocytes # (auto) 0.55 K/uL (0.00-0.02); Immature Granulocytes % (auto) 3.2 %; Lymphocytes # (auto) 1.82 K/uL (1.2-3.4); Lymphocytes % (auto) 10.7 %; Mean Corpuscular Hemoglobin 28.7 pg (25-34); Mean Corpuscular Hgb Conc 32.4 g/dL (32-36); Mean Corpuscular Volume 88.6 fL (80-100); Mean Platelet Volume 10.4 fL (7.4-10.4); Monocytes # (auto) 1.61 K/uL (0.11-0.59); Monocytes % (auto) 9.5 %; Neutrophils # (auto) 12.94 K/uL (1.4-6.5); Neutrophils % (auto) 76.1 %; Nucleated RBC # (auto) 0.14 K/uL (0-0); Nucleated RBC % (auto) 0.8 %; Platelet Count 192 K/uL (130-400); RDW Coefficient of Variation 16.3 % (11.5-14.5); RDW Standard Deviation 50.1 fL (36.4-46.3); Red Blood Count 3.59 M/uL (4.7-6.1)
[2020-02-03 08:34] LABS: INR 1.1 (0.9-1.1); Prothrombin Time 11.2 Seconds (9.0-12.0)
[2020-02-03] MEDS: methylPREDNISolone 20 MG in SYRINGE 0 ML IV SCH (08:38)
[2020-02-03] MEDS: guaiFENesin 600 MG TABCR PO SCH ×2 (08:38→20:45)
[2020-02-03] MEDS: ESCITALOPRAM OXALATE 20 MG TAB PO SCH (08:39)
[2020-02-03] MEDS: ROFLUMILAST 500 MCG TAB PO SCH (08:39)
[2020-02-03] MEDS: PANTOprazole 40 MG TAB PO SCH ×2 (08:39→20:45)
[2020-02-03] MEDS: FUROSEMIDE 40 MG TAB PO SCH (08:39)
[2020-02-03 10:01] LABS: Albumin Globulin Ratio 1.2 (0.9-2); Albumin Level 2.7 gm/dl (3.4-5.0); BUN Creatinine Ratio 57.9 (10-20); Bilirubin,Total 0.8 mg/dl (0.2-1); Creatinine Clr Calc Pharmacy 152.1 ml/min; Est GFR (African American) 122.8; Est GFR (Non-African American) 105.9; Globulin 2.3 gm/dl (2.5-4.0); Magnesium 2.7 mg/dl (1.8-2.4); Phosphorus 2.8 mg/dl (2.5-4.9); Potassium 3.5 mmol/L (3.5-5.1)
--- NOTE | 2020-02-03 11:30 | Pharmacy Report ---
Pharmacy Glycemic Sign Off Nt - Date of Service February 03, 2020 - Assessment & Plan ASSESSMENT: * Pharmacy was consulted by Dr Escalona on 01/22/20 for glycemic control and to write orders per [facility] inpatient glycemic control protocol while in ICU. * Patients stressors have decreased over the last several days. He received his last dose of Solu-medrol IV this AM. He has not required any insulin in > 24 hrs and BSGs have been consistently 140 or less. A1c = 5.9%. PLAN FOR INPATIENT GLYCEMIC CONTROL: * Pharmacy is signing off of glycemic consult. BSG checks and Novolog correction will be discontinued at this time. Please feel free to re-consult if needed. Thank you.
[2020-02-03] MEDS: UMECLIDINIUM BROMIDE 62.5MCG/BLISTER 7 PUFFS/INHALER INH SCH (12:48)
--- NOTE | 2020-02-03 18:33 | Hospitalist Progress Note ---
Date of Service February 03, 2020 Assessment & Plan (1) Acute on chronic respiratory failure with hypoxia and hypercapnia: This is a 59 year old male with very severe obstructive lung disease who presented to the emergency department on 01/22/2020 in severe respiratory distress -patient required ICU admission and intubation, extubated on 01/23/2020 -He was transferred back to the ICU 01/29/2020 early in the morning with hemodynamically significant active GI bleed requiring intensive resuscitation and again had to be intubated -completed course of IV antibiotics -extubated on 02/01/2020 -currently on solumedrol 20 mg IV daily, will plan to discontinued solumedrol on 02/04/2020 -Continue Roflumilast 500mcg QD -prn nebulizer treatment -patient will need follow up with [facility] Pulmonary clinic Dr. Metzger, he will need insurance coverage to get his medications -patient uses supplementary oxygen at home and CPAP at night (2) Stage 4 very severe COPD by GOLD classification: -management as outlined above (3) Acute GI bleeding: -on this admission with GI bleed, patient has received 8 units PRBC and 3 units cryoprecipitate, 2 units platelets -S/P EGD with findings of duodenal ulcer with actively spurting hemorrhage was found in the duodenal bulb, Injected with epinephrine and clip -avoid NSAIDs -Plavix is held -PPI PO BID for 3 months (4) Hypotension: -resolved (5) Transaminitis: -Mostly related to hypovolemic shock; his AST and ALT were as high as 1177 / 1221 on 01/29/2020 as this correlates with acute event related to GI bleed -liver enzymes downtrended (6) Systolic congestive heart failure with reduced left ventricular function, NYHA class 2: -Echo on 01/23/2020 showed left ventricular systolic function is severely reduced with ejection fraction 15 to 20%. -Repeat echo on 01/24/2020 showed left ventricular systolic function is mildly reduced with ejection fraction 45 (approx baseline) -bedside echocardiogram when he was under mechanical ventilation was not adequate -patient likely will need cardiology clinic follow up -currently on home dose furosemide 40 mg daily -home dose lisinopril was 40 mg daily but was held on this admission because of hypotension, resume lisinopril as 5 mg daily for now -continue to hold aspirin and plavix because of GI bleed on this admission (7) Acute metabolic encephalopathy: -resolved (8) NOLBERTO (acute kidney injury): -Creatinine 1.6 admission which peaked as 3.5 on 01/29/2020 as this correlate with acute event related to GI bleed -his creatinine improved with renal perfusion from IV fluids and blood transfusions -creatinine at baseline and can resume lisinopril as low doses for now (9) Elevated lactic acid level: -resolved on this admission Leukocytosis -current leukocytosis may reflect steroid-induced leukocytosis, monitor WBC, monitor if any fever (10) History of tobacco use disorder: -Relapsed Counseling on smoking cessation DVT prophylaxis: SCDs Currently Code Status of conditional code Admission and Anticipated Discharge Date Admission Date: January 22, 2020 Subjective Patient's requests advancing of diet. breathing on nasal cannula oxygen. no chest pain. no abdomen pain. no vomiting. no dizziness. no headache Review of Systems Review of Systems: All systems reviewed & are unremarkable except as noted in Subjective Physical Exam Constitutional: cooperative Eyes: PERRL, conjunctivae normal, anicteric sclerae EOM intact bilaterally ENMT: external ear and nose normal, oropharynx normal Neck: normal visual inspection Respiratory: normal respiratory effort on nasal cannula Cardiovascular: Rate/Rhythm: regular rate and regular rhythm Gastrointestinal (Abdomen): Inspection/Auscultation: abdomen normal to inspection and normal bowel sounds Percussion/Palpation: abdomen soft Musculoskeletal: Head/Neck/Chest: normocephalic and head atraumatic Neurologic: PERRL, EOMI, accommodation nl, no face palsy, no dysarthria CN's II-XI intact bilaterally Psychiatric: A+Ox3, euthymic affect Results & Data Results & Data ([facility]) Vital Signs (Past 12 Hours) Vital Signs Temp Pulse Pulse Pulse Resp BP Pulse Ox 02/03/20 16:34 73 02/03/20 15:41 37.0 C 71 18 119/79 97 02/03/20 11:23 36.8 C 64 18 133/72 96 02/03/20 07:48 36.9 C 70 20 121/75 98 02/03/20 07:15 70 20 98 02/03/20 07:00 70
[2020-02-03] MEDS: lisinopril 5 MG TAB PO SCH (19:29)
[2020-02-03] MEDS: INSULIN ASPART 100 UNITS/ML 3 ML PEN SC SCH (20:51)
[2020-02-03] MEDS ORDERED: INSULIN ASPART 100 UNITS/ML 3 ML PEN SC SCH (21:00)
[2020-02-04 06:26] LABS: Basophils # (auto) 0.02 K/uL (0-0.2); Basophils % (auto) 0.1 %; Eosinophils # (auto) 0.11 K/uL (0-0.5); Eosinophils % (auto) 0.6 %; Hematocrit (blood only) 31.7 % (42-52); Hemoglobin 10.2 g/dL (14.0-18.0); Immature Granulocytes # (auto) 0.36 K/uL (0.00-0.02); Lymphocytes # (auto) 1.73 K/uL (1.2-3.4); Lymphocytes % (auto) 9.7 %; Mean Corpuscular Hemoglobin 28.3 pg (25-34); Mean Corpuscular Hgb Conc 32.2 g/dL (32-36); Mean Corpuscular Volume 88.1 fL (80-100); Mean Platelet Volume 9.8 fL (7.4-10.4); Monocytes # (auto) 1.33 K/uL (0.11-0.59); Monocytes % (auto) 7.5 %; Neutrophils # (auto) 14.26 K/uL (1.4-6.5); Neutrophils % (auto) 80.1 %; Nucleated RBC % (auto) 0.6 %; Platelet Count 203 K/uL (130-400); RDW Coefficient of Variation 16.1 % (11.5-14.5); RDW Standard Deviation 48.8 fL (36.4-46.3); White Blood Count 17.81 K/uL (4.8-10.8)
[2020-02-04 07:05] LABS: Albumin Level 2.4 gm/dl (3.4-5.0); BUN Creatinine Ratio 45.9 (10-20); Calcium 8.3 mg/dl (8.5-10.1); Creatinine Clr Calc Pharmacy 158.3 ml/min; Est GFR (African American) 125.1; Est GFR (Non-African American) 107.9; Magnesium 2.3 mg/dl (1.8-2.4); Potassium 3.3 mmol/L (3.5-5.1)
[2020-02-04 07:08] LABS: Bilirubin,Total 0.9 mg/dl (0.2-1); Globulin 2.4 gm/dl (2.5-4.0); Phosphorus 2.8 mg/dl (2.5-4.9); Total Protein 4.8 gm/dl (6.4-8.2)
[2020-02-04] MEDS ORDERED: POTASSIUM CHLORIDE 20 MEQ TABCR PO STA (07:12)
[2020-02-04] MEDS: BUDESONIDE 0.5 MG/2 ML VIAL (PULMICORT) NEB SCH ×2 (07:19→19:49)
[2020-02-04] MEDS: IPRATROPIUM BROMIDE NEB SOLN 0.02% 2.5 ML VIAL INH PRN ×3 (07:20→23:59)
[2020-02-04] MEDS: FORMOTEROL 20 MCG/2 ML VIAL NEB SCH ×2 (07:20→19:49)
[2020-02-04] MEDS: LEVALBUTEROL 1.25MG/0.5ML NEB INH PRN ×3 (07:20→23:59)
[2020-02-04] MEDS ORDERED: POTASSIUM CHLORIDE / WTR 10 MEQ/100 ML PLCT IV ONE (07:30)
[2020-02-04] MEDS: ROFLUMILAST 500 MCG TAB PO SCH (08:01)
[2020-02-04] MEDS: FUROSEMIDE 40 MG TAB PO SCH (08:01)
[2020-02-04] MEDS: lisinopril 5 MG TAB PO SCH (08:02)
[2020-02-04] MEDS: ESCITALOPRAM OXALATE 20 MG TAB PO SCH (08:02)
[2020-02-04] MEDS: PANTOprazole 40 MG TAB PO SCH ×2 (08:02→21:41)
[2020-02-04] MEDS: guaiFENesin 600 MG TABCR PO SCH ×2 (08:02→21:41)
[2020-02-04] MEDS: UMECLIDINIUM BROMIDE 62.5MCG/BLISTER 7 PUFFS/INHALER INH SCH (13:22)
--- NOTE | 2020-02-04 14:01 | Hospitalist Progress Note ---
Date of Service February 04, 2020 Assessment & Plan (1) Acute on chronic respiratory failure with hypoxia and hypercapnia: This is a 59 year old male with very severe obstructive lung disease who presented to the emergency department on 01/22/2020 in severe respiratory distress -patient required ICU admission and intubation, extubated on 01/23/2020 -He was transferred back to the ICU 01/29/2020 early in the morning with hemodynamically significant active GI bleed requiring intensive resuscitation and again had to be intubated -completed course of IV antibiotics -extubated on 02/01/2020 -recently on solumedrol 20 mg IV daily, and last dose of solumedrol on 02/04/2020 -Continue Roflumilast 500mcg QD -prn nebulizer treatment -patient will need follow up with [facility] Pulmonary clinic Dr. Metzger, case management aware of patient's needs for respiratory inhalers and patient's financial concerns -patient uses supplementary oxygen at home and CPAP at night -patient is encouraged to work with PT/OT to check mobility and oxygen saturation with activity during this hospital stay (2) Stage 4 very severe COPD by GOLD classification: -management as outlined above (3) Acute GI bleeding: -on this admission with GI bleed, patient has received 8 units PRBC and 3 units cryoprecipitate, 2 units platelets -S/P EGD with findings of duodenal ulcer with actively spurting hemorrhage was found in the duodenal bulb, Injected with epinephrine and clip -avoid NSAIDs -Plavix/aspirin have been held -PPI PO BID for 3 months (4) Hypotension: -generally this has resolved (5) Transaminitis: -Mostly related to hypovolemic shock; his AST and ALT were as high as 1177 / 1221 on 01/29/2020 as this correlates with acute event related to GI bleed -liver enzymes downtrended (6) Systolic congestive heart failure with reduced left ventricular function, NYHA class 2: -Echo on 01/23/2020 showed left ventricular systolic function is severely reduced with ejection fraction 15 to 20%. -Repeat echo on 01/24/2020 showed left ventricular systolic function is mildly reduced with ejection fraction 45 (approx baseline) -bedside echocardiogram when he was under mechanical ventilation was not adequate -patient likely will need cardiology clinic follow up -currently on home dose furosemide 40 mg daily -home dose lisinopril was 40 mg daily but was held on this admission because of hypotension, resume lisinopril as 5 mg daily starting on 02/03/2020 -continue to hold aspirin and plavix because of GI bleed on this admission -supplementary potassium given on 02/04/2020 (7) Acute metabolic encephalopathy: -resolved (8) NOLBERTO (acute kidney injury): -Creatinine 1.6 admission which peaked as 3.5 on 01/29/2020 as this correlate with acute event related to GI bleed -his creatinine improved with renal perfusion from IV fluids and blood transfusions -creatinine at baseline and can resume lisinopril as low doses for now (9) Elevated lactic acid level: -resolved on this admission Leukocytosis -current leukocytosis may reflect steroid-induced leukocytosis, monitor WBC, monitor if any fever (10) History of tobacco use disorder: -Relapsed Counseling on smoking cessation DVT prophylaxis: SCDs Currently Code Status of conditional code Admission and Anticipated Discharge Date Admission Date: January 22, 2020 Subjective Patient generally sedentary on the bed today. He is encouraged to participate with therapy today. Explained to patient that hospitalist understands his eagerness to be discharged to home as his health currently medically stable, but the hospital team needs to assess his mobility and oxygen requirements when he can ambulate. patient denies acute pain. he denies other symptoms. he reports his plans to come later to hospital today and will want updates Review of Systems Review of Systems: All systems reviewed & are unremarkable except as noted in Subjective Physical Exam Constitutional: cooperative Eyes: PERRL, conjunctivae normal, anicteric sclerae EOM intact bilaterally ENMT: external ear and nose normal, oropharynx normal Neck: normal visual inspection Respiratory: normal respiratory effort Cardiovascular: Rate/Rhythm: regular rate and regular rhythm Gastrointestinal (Abdomen): Inspection/Auscultation: abdomen normal to inspection and normal bowel sounds Percussion/Palpation: abdomen soft Musculoskeletal: Head/Neck/Chest: normocephalic and head atraumatic Neurologic: PERRL, EOMI, accommodation nl, no face palsy, no dysarthria CN's II-XI intact bilaterally Psychiatric: A+Ox3, euthymic affect Results & Data Results & Data ([facility]) Vital Signs (Past 12 Hours) Vital Signs Temp Pulse Pulse Pulse Resp BP BP 02/04/20 11:30 36.6 C 75 18 90/51 L 02/04/20 07:33 82 02/04/20 07:31 79 106/65 02/04/20 07:22 77 22 02/04/20 04:02 36.8 C 68 18 104/66 Pulse Ox 02/04/20 11:30 95 02/04/20 07:33 02/04/20 07:31 02/04/20 07:22 96 02/04/20 04:02 90
[2020-02-04] MEDS ORDERED: SODIUM CHLORIDE 0.9% 250 ML IV ONE (16:59)
[2020-02-04] MEDS ORDERED: SODIUM CHLORIDE 0.9% 500 ML IV SCH (19:45)
[2020-02-05] MEDS: FORMOTEROL 20 MCG/2 ML VIAL NEB SCH ×2 (07:27→19:25)
[2020-02-05] MEDS: BUDESONIDE 0.5 MG/2 ML VIAL (PULMICORT) NEB SCH ×2 (07:27→19:25)
[2020-02-05 07:48] LABS: Basophils # (auto) 0.01 K/uL (0-0.2); Basophils % (auto) 0.1 %; Eosinophils # (auto) 0.16 K/uL (0-0.5); Eosinophils % (auto) 0.9 %; Hematocrit (blood only) 30.4 % (42-52); Hemoglobin 9.8 g/dL (14.0-18.0); Immature Granulocytes # (auto) 0.22 K/uL (0.00-0.02); Immature Granulocytes % (auto) 1.2 %; Lymphocytes # (auto) 1.66 K/uL (1.2-3.4); Mean Corpuscular Hemoglobin 28.6 pg (25-34); Mean Corpuscular Hgb Conc 32.2 g/dL (32-36); Mean Corpuscular Volume 88.6 fL (80-100); Mean Platelet Volume 10.3 fL (7.4-10.4); Monocytes # (auto) 0.87 K/uL (0.11-0.59); Monocytes % (auto) 4.7 %; Neutrophils # (auto) 15.43 K/uL (1.4-6.5); Neutrophils % (auto) 84.1 %; Nucleated RBC # (auto) 0.03 K/uL (0-0); Nucleated RBC % (auto) 0.2 %; Platelet Count 201 K/uL (130-400); RDW Coefficient of Variation 16.4 % (11.5-14.5); RDW Standard Deviation 50.9 fL (36.4-46.3); Red Blood Count 3.43 M/uL (4.7-6.1); White Blood Count 18.35 K/uL (4.8-10.8)
[2020-02-05] MEDS: PANTOprazole 40 MG TAB PO SCH ×2 (07:48→20:36)
[2020-02-05] MEDS: ROFLUMILAST 500 MCG TAB PO SCH (07:48)
[2020-02-05] MEDS: guaiFENesin 600 MG TABCR PO SCH (07:48)
[2020-02-05] MEDS: ESCITALOPRAM OXALATE 20 MG TAB PO SCH (07:48)
[2020-02-05] MEDS: UMECLIDINIUM BROMIDE 62.5MCG/BLISTER 7 PUFFS/INHALER INH SCH (07:49)
[2020-02-05 08:13] LABS: Albumin Level 2.3 gm/dl (3.4-5.0); BUN Creatinine Ratio 39.4 (10-20); Calcium 8.4 mg/dl (8.5-10.1); Creatinine Clr Calc Pharmacy 154.1 ml/min; Est GFR (African American) 123.5; Est GFR (Non-African American) 106.6; Potassium 3.6 mmol/L (3.5-5.1)
[2020-02-05 08:16] LABS: Globulin 2.3 gm/dl (2.5-4.0); Total Protein 4.6 gm/dl (6.4-8.2)
[2020-02-05] MEDS ORDERED: SODIUM CHLORIDE 0.9% 500 ML IV SCH (12:30)
--- NOTE | 2020-02-05 16:27 | Hospitalist Progress Note ---
Date of Service February 05, 2020 Assessment & Plan (1) Acute on chronic respiratory failure with hypoxia and hypercapnia: This is a 59 year old male with very severe obstructive lung disease who presented to the emergency department on 01/22/2020 in severe respiratory distress -patient required ICU admission and intubation, extubated on 01/23/2020 -He was transferred back to the ICU 01/29/2020 early in the morning with hemodynamically significant active GI bleed requiring intensive resuscitation and again had to be intubated -completed course of IV antibiotics -extubated on 02/01/2020 -recently on solumedrol 20 mg IV daily, and last dose of solumedrol on 02/04/2020 -Continue Roflumilast 500mcg QD -prn nebulizer treatment -patient will need follow up with [facility] Pulmonary clinic Dr. Metzger, case management aware of patient's needs for respiratory inhalers and patient's financial concerns -patient uses supplementary oxygen at home and CPAP at night -patient is encouraged to work with PT/OT to check mobility and oxygen saturation with activity during this hospital stay -02/05/2020: patient since 02/04/2020 having some noted soft blood pressures but is completely asymptomatic. He reports more activity with sitting up in chair today. he has received intermittent IV fluids. normal cortisol level and Hgb stable. patient feels his breathing on nasal cannula is at baseline. denies acute pain. not on any furosemide or lisinopril at this time (2) Stage 4 very severe COPD by GOLD classification: -management as outlined above (3) Acute GI bleeding: -on this admission with GI bleed, patient has received 8 units PRBC and 3 units cryoprecipitate, 2 units platelets -S/P EGD with findings of duodenal ulcer with actively spurting hemorrhage was found in the duodenal bulb, Injected with epinephrine and clip -avoid NSAIDs -Plavix/aspirin have been held -PPI PO BID for 3 months (4) Hypotension: -generally this has resolved (5) Transaminitis: -Mostly related to hypovolemic shock; his AST and ALT were as high as 1177 / 1221 on 01/29/2020 as this correlates with acute event related to GI bleed -liver enzymes downtrended (6) Systolic congestive heart failure with reduced left ventricular function, NYHA class 2: -Echo on 01/23/2020 showed left ventricular systolic function is severely reduced with ejection fraction 15 to 20%. -Repeat echo on 01/24/2020 showed left ventricular systolic function is mildly reduced with ejection fraction 45 (approx baseline) -bedside echocardiogram when he was under mechanical ventilation was not adequate -patient likely will need cardiology clinic follow up -continue to hold aspirin and plavix because of GI bleed on this admission -monitor fluid status and blood pressures -supplementary potassium given on 02/04/2020 (7) Acute metabolic encephalopathy: -resolved (8) NOLBERTO (acute kidney injury): -Creatinine 1.6 admission which peaked as 3.5 on 01/29/2020 as this correlate with acute event related to GI bleed -his creatinine improved with renal perfusion from IV fluids and blood transfusions -creatinine at baseline (9) Elevated lactic acid level: -resolved on this admission Leukocytosis -current leukocytosis may reflect steroid-induced leukocytosis, monitor WBC, monitor if any fever (10) History of tobacco use disorder: -Relapsed Counseling on smoking cessation DVT prophylaxis: SCDs Currently Code Status of conditional code Admission and Anticipated Discharge Date Admission Date: January 22, 2020 Subjective -02/05/2020: patient since 02/04/2020 having some noted soft blood pressures but is completely asymptomatic. He reports more activity with sitting up in chair today. he has received intermittent IV fluids. normal cortisol level and Hgb stable. patient feels his breathing on nasal cannula is at baseline. denies acute pain. Review of Systems Review of Systems: All systems reviewed & are unremarkable except as noted in Subjective Physical Exam Constitutional: cooperative Eyes: PERRL, conjunctivae normal, anicteric sclerae EOM intact bilaterally ENMT: external ear and nose normal, oropharynx normal Neck: normal visual inspection Respiratory: normal respiratory effort (on supplementary oxygen with nasal cannul) Cardiovascular: Rate/Rhythm: regular rate and regular rhythm Gastrointestinal (Abdomen): Inspection/Auscultation: abdomen normal to inspection and normal bowel sounds Percussion/Palpation: abdomen soft Musculoskeletal: Head/Neck/Chest: normocephalic and head atraumatic Neurologic: PERRL, EOMI, accommodation nl, no face palsy, no dysarthria CN's II-XI intact bilaterally Psychiatric: A+Ox3, euthymic affect Results & Data Results & Data ([facility]) Vital Signs (Past 12 Hours) Vital Signs Temp Pulse Pulse Resp BP Pulse Ox 02/05/20 16:10 90 02/05/20 15:00 37 C 89 16 107/68 99 02/05/20 11:39 36.6 C 92 H 16 86/55 L 96 02/05/20 11:35 97 02/05/20 07:30 36.4 C L 101 H 20 96/53 L 93 02/05/20 07:29 60 18 97 02/05/20 07:17 85 02/05/20 06:18 95/53 L
[2020-02-05 20:04] LABS: C Reactive Protein 6.64 mg/dl (0-0.29)
[2020-02-05] MEDS: LEVALBUTEROL 1.25MG/0.5ML NEB INH PRN (22:56)
[2020-02-05] MEDS: IPRATROPIUM BROMIDE NEB SOLN 0.02% 2.5 ML VIAL INH PRN (22:57)
[2020-02-06] MEDS: FORMOTEROL 20 MCG/2 ML VIAL NEB SCH (07:15)
[2020-02-06] MEDS: BUDESONIDE 0.5 MG/2 ML VIAL (PULMICORT) NEB SCH (07:15)
--- NOTE | 2020-02-06 10:13 | XRay Report ---
XR chest 2V PA/lateral CLINICAL HISTORY: elevated BNP COMPARISON STUDY: 01/31/2020 FINDINGS: The endotracheal tube is been removed. There is a right internal jugular central venous cat heter. There is radiographic evidence of emphysema with hyperinflation. There is no lobar consolidati on. There is mild basilar atelectasis/scarring. There are trace pleural effusions.[ IMPRESSION: 1. Interval removal of the endotracheal tube 2. Trace pleural effusions 3. Emphysema with minor basilar atelectasis/scarring 4. No evidence of failure ACT 112: Negative or not required by law. Electronically signed by: Kyle Liang M.D. 02/06/2020 10:11 AM
[2020-02-06] MEDS: ROFLUMILAST 500 MCG TAB PO SCH (11:02)
[2020-02-06] MEDS: ESCITALOPRAM OXALATE 20 MG TAB PO SCH (11:02)
[2020-02-06] MEDS: PANTOprazole 40 MG TAB PO SCH (11:02)
[2020-02-06] MEDS: UMECLIDINIUM BROMIDE 62.5MCG/BLISTER 7 PUFFS/INHALER INH SCH (11:03)
--- NOTE | 2020-02-06 13:45 | Hospitalist Progress Note ---
Date of Service February 06, 2020 Assessment & Plan (1) Acute on chronic respiratory failure with hypoxia and hypercapnia: This is a 59 year old male with very severe obstructive lung disease who presented to the emergency department on 01/22/2020 in severe respiratory distress -patient required ICU admission and intubation, extubated on 01/23/2020 -He was transferred back to the ICU 01/29/2020 early in the morning with hemodynamically significant active GI bleed requiring intensive resuscitation and again had to be intubated -completed course of IV antibiotics -extubated on 02/01/2020 -recently on solumedrol 20 mg IV daily, and last dose of solumedrol on 02/04/2020 -Continue Roflumilast 500mcg QD and respiratory inhalers -patient will need follow up with [facility] clinic Dr. Metzger, case management aware of patient's needs for respiratory inhalers and patient's financial concerns -patient uses supplementary oxygen at home and CPAP at night -02/05/2020: patient since 02/04/2020 having some noted soft blood pressures but is completely asymptomatic. He reports more activity with sitting up in chair today. he has received intermittent IV fluids. normal cortisol level and Hgb stable. patient feels his breathing on nasal cannula is at baseline. denies acute pain. not on any furosemide or lisinopril at this time 02/06/2020: patient is encouraged to work with PT/OT to check mobility and oxygen saturation with activity during this hospital stay. Patient does not want to go to physical therapy rehabilitation facility and wishes for home discharge today patient's preferred pharmacy is [facility] [address] [place] [address] -patient has undertaken measures to obtain respirator inhalers for home use -patient can take methylprednisone dose pack as sent to [facility] pharmacy if acute more short of breath -based on recent hospital blood pressures, patient's furosemide will be 20 mg daily -lisinopril to be avoided until repeat blood pressure with primary care doctor -discharge on pantoprazole 40 mg twice a day (will need to be on this medication for total of 3 months) -patient is advised not to continue aspirin or clopidogrel at this time because of GI bleed and should re-discuss with primary care doctor / cardiology clinic; avoid NSAIDs patient will need to schedule with primary care doctor in 7 to 10 days of hospital discharge for follow routine labs (CBC, basic metabolic panel) and medication reconciliation or adjustments patient will need to follow up with cardiology clinic because of changes to cardiovascular medications patient will need follow up with [facility], Dr. Metzger, [address] [place] [address] previously scheduled appointments 03/15/2020 11:20 AM Provider Izabela Gonzalez DO Department Family Practice [facility] 03/23/2020 9:00 AM Provider Misael Zee PA-C Department Cardiology, [facility] (2) Stage 4 very severe COPD by GOLD classification: -management as outlined above (3) Acute GI bleeding: This is a 59 year old male with very severe obstructive lung disease who presented to the emergency department on 01/22/2020 in severe respiratory distress -patient required ICU admission and intubation, extubated on 01/23/2020 -He was transferred back to the ICU 01/29/2020 early in the morning with hemodynamically significant active GI bleed requiring intensive resuscitation and again had to be intubated -S/P EGD on 01/29/2020 with findings of duodenal ulcer with actively spurting hemorrhage was found in the duodenal bulb, Injected with epinephrine and clip; recommendations of holding off anti-platelets of at least 7 days and also be on pantoprazole twice a day for 3 months -completed course of IV antibiotics -extubated on 02/01/2020 -on this admission with GI bleed, patient has received 8 units PRBC and 3 units cryoprecipitate, 2 units platelets -avoid NSAIDs -Plavix/aspirin have been held -PPI PO BID for 3 months (4) Elevated lactic acid level: -resolved on this admission (5) Hypotension: Leukocytosis -patient had hypotension when he had the GI bleed and the blood pressures stabilized with hospital treatment -blood cultures from 02/05/2020 were drawn to complete assessment of leukocytosis and recent soft blood pressures, but no current signs of infectious source at this time - patient has been afebrile. patient declines further hospitalization on 02/06/2020. will notify patient if blood culture results are positive (6) Transaminitis: -Mostly related to hypovolemic shock; his AST and ALT were as high as 1177 / 1221 on 01/29/2020 as this correlates with acute event related to GI bleed -liver enzymes downtrended (7) Systolic congestive heart failure with reduced left ventricular function, NYHA class 2: -Echo on 01/23/2020 showed left ventricular systolic function is severely reduced with ejection fraction 15 to 20%. -Repeat echo on 01/24/2020 showed left ventricular systolic function is mildly reduced with ejection fraction 45 (approx baseline) -bedside echocardiogram when he was under mechanical ventilation was not adequate -patient likely will need cardiology clinic follow up -continue to hold aspirin and plavix because of GI bleed on this admission -supplementary potassium given on 02/04/2020 (8) Acute metabolic encephalopathy: -resolved (9) NOLBERTO (acute kidney injury): -Creatinine 1.6 admission which peaked as 3.5 on 01/29/2020 as this correlate with acute event related to GI bleed -his creatinine improved with renal perfusion from IV fluids and blood transfusions on this admission -creatinine at baseline (10) History of tobacco use disorder: -Relapsed Counseling on smoking cessation Admission and Anticipated Discharge Date Admission Date: January 22, 2020 Subjective patient is encouraged to work with PT/OT to check mobility and oxygen saturation with activity during this hospital stay. Patient does not want to go to physical therapy rehabilitation facility and wishes for home discharge today denies acute pain. denies acute symptoms Review of Systems Review of Systems: All systems reviewed & are unremarkable except as noted in Subjective Physical Exam Constitutional: cooperative Eyes: PERRL, conjunctivae normal, anicteric sclerae EOM intact bilaterally ENMT: external ear and nose normal, oropharynx normal Neck: normal visual inspection Respiratory: normal respiratory effort (on supplementary oxygen with nasal cannul) Cardiovascular: Rate/Rhythm: regular rate and regular rhythm Gastrointestinal (Abdomen): Inspection/Auscultation: abdomen normal to inspection and normal bowel sounds Percussion/Palpation: abdomen soft Musculoskeletal: Head/Neck/Chest: normocephalic and head atraumatic Neurologic: PERRL, EOMI, accommodation nl, no face palsy, no dysarthria CN's II-XI intact bilaterally Psychiatric: A+Ox3, euthymic affect Results & Data Results & Data ([facility]) Vital Signs (Past 12 Hours) Vital Signs Temp Pulse Pulse Pulse Resp BP Pulse Ox 02/06/20 11:23 36.5 C 94 H 16 100/62 96 02/06/20 07:39 36.5 C 60 16 94/60 L 98 02/06/20 07:17 66 02/06/20 07:15 72 18 93 02/06/20 03:39 36.7 C 69 18 100/64 98
--- NOTE | 2020-02-06 13:56 | Discharge Summary ---
Date of Service February 06, 2020 Admission HPI Per Admitting Provider This is a 59-year-old male with PMH of severe COPD on 2 L nasal cannula O2 and recently started non-invasive ventilation HS, history of tobacco abuse, depression, history of NSTEMI, history of transient left apical ballooning syndrome, tremor due to multiple medications and other medical problems as below who presents with altered mental status and difficulty breathing. Per history obtained from nursing and chart review -patient is intubated and sedated at this time. Patient was reportedly becoming more lethargic last evening and became concerned about him this morning. Was brought in by EMS and found to be hypoxic and placed on BiPAP. Patient was tachypneic in the mid 30s and resistant to BiPAP and was intubated by ED physician. Reported ABG findings of pH of 7.0 with PCO2 in the 90s, per ED physician- not yet posted in EMR. Will reorder ABG. Patient is afebrile, mild leukocytosis of 12.7, potassium 5.5, creatinine of 1.6, glucose of 382 and troponin of 0.851. Was initially a heart alert due to concern for ST elevation and heart rate in the 140s. Was given 10 of IV Cardizem was evaluated by Dr. Almanza with repeat EKG revealing sinus tachycardia. Arrhythmia attributed to severe respiratory acidosis. Dr. Car was contacted and accepted patient for ICU and requested [employer] and COVID PCR. UA unremarkable. CXR with cardiomegaly and advanced emphysema with no acute cardiopulmonary abnormality identified. ROS unobtainable due to reduced consciousness Principal Diagnosis Acute on chronic respiratory failure with hypoxia and hypercapnia Stage 4 very severe COPD by GOLD classification Acute GI bleed Systolic congestive heart failure with reduced left ventricular function, NYHA class 2 Leukocytosis Discharge Exam Constitutional cooperative Eyes PERRL, conjunctivae normal, anicteric sclerae EOM intact bilaterally ENMT external ear and nose normal, oropharynx normal Neck normal visual inspection Respiratory normal respiratory effort (on supplementary oxygen with nasal cannul) Cardiovascular Rate/Rhythm: regular rate and regular rhythm Gastrointestinal (Abdomen) Inspection/Auscultation: abdomen normal to inspection and normal bowel sounds Percussion/Palpation: abdomen soft Musculoskeletal Head/Neck/Chest: normocephalic and head atraumatic Neurologic PERRL, EOMI, accommodation nl, no face palsy, no dysarthria CN's II-XI intact bilaterally Psychiatric A+Ox3, euthymic affect Discharge Data Allergies Allergy/AdvReac Type Severity Reaction Status Date / Time No Known Drug Allergies Allergy Verified 01/22/20 09:48 Consultations 01/22/20 10:25 ED Decision to Admit Stat 01/22/20 13:31 Consult Case Management - Discharge Planning Routine Consult Brick Washer Routine 01/29/20 07:21 Consult Gastroenterology Routine 01/29/20 13:32 Consult Anesthesiology Routine Procedures Performed Operation Date: 01/29/20 11:10 Actual Procedures p EGD Hemostasis(Left) - Johan Rudd MD Ordered Studies 01/22/20 13:42 US point of care ultrasound Stat US point of care ultrasound Stat 01/29/20 05:00 US point of care ultrasound Stat Hospital Course (1) Acute on chronic respiratory failure with hypoxia and hypercapnia: This is a 59 year old male with very severe obstructive lung disease who presented to the emergency department on 01/22/2020 in severe respiratory distress -patient required ICU admission and intubation, extubated on 01/23/2020 -He was transferred back to the ICU 01/29/2020 early in the morning with hemodynamically significant active GI bleed requiring intensive resuscitation and again had to be intubated -completed course of IV antibiotics -extubated on 02/01/2020 -recently on solumedrol 20 mg IV daily, and last dose of solumedrol on 02/04/2020 -Continue Roflumilast 500mcg QD and respiratory inhalers -patient will need follow up with [facility] Pulmonary clinic Dr. Metzger, case management aware of patient's needs for respiratory inhalers and patient's financial concerns -patient uses supplementary oxygen at home and CPAP at night -02/05/2020: patient since 02/04/2020 having some noted soft blood pressures but is completely asymptomatic. He reports more activity with sitting up in chair today. he has received intermittent IV fluids. normal cortisol level and Hgb stable. patient feels his breathing on nasal cannula is at baseline. denies acute pain. not on any furosemide or lisinopril at this time 02/06/2020: patient is encouraged to work with PT/OT to check mobility and oxygen saturation with activity during this hospital stay. Patient does not want to go to physical therapy rehabilitation facility and wishes for home discharge today patient's preferred pharmacy is [facility] pharmacy [address] [place] [address] -patient has undertaken measures to obtain respirator inhalers for home use -patient can take methylprednisone dose pack as sent to [facility] pharmacy if acute more short of breath -based on recent hospital blood pressures, patient's furosemide will be 20 mg daily -lisinopril to be avoided until repeat blood pressure with primary care doctor -discharge on pantoprazole 40 mg twice a day (will need to be on this medication for total of 3 months) -patient is advised not to continue aspirin or clopidogrel at this time because of GI bleed and should re-discuss with primary care doctor / cardiology clinic; avoid NSAIDs patient will need to schedule with primary care doctor in 7 to 10 days of hospital discharge for follow routine labs (CBC, basic metabolic panel) and medication reconciliation or adjustments patient will need to follow up with cardiology clinic because of changes to cardiovascular medications patient will need follow up with [facility], Dr. Metzger, [address] [place] [address] previously scheduled appointments 03/15/2020 11:20 AM Provider Izabela Gonzalez DO Department Family Practice [facility] 03/23/2020 9:00 AM Provider Misael Zee PA-C Department Cardiology, [facility] (2) Stage 4 very severe COPD by GOLD classification: -management as outlined above (3) Acute GI bleeding: This is a 59 year old male with very severe obstructive lung disease who presented to the emergency department on 01/22/2020 in severe respiratory distress -patient required ICU admission and intubation, extubated on 01/23/2020 -He was transferred back to the ICU 01/29/2020 early in the morning with hemodynamically significant active GI bleed requiring intensive resuscitation and again had to be intubated -S/P EGD on 01/29/2020 with findings of duodenal ulcer with actively spurting hemorrhage was found in the duodenal bulb, Injected with epinephrine and clip; recommendations of holding off anti-platelets of at least 7 days and also be on pantoprazole twice a day for 3 months -completed course of IV antibiotics -extubated on 02/01/2020 -on this admission with GI bleed, patient has received 8 units PRBC and 3 units cryoprecipitate, 2 units platelets -avoid NSAIDs -Plavix/aspirin have been held -PPI PO BID for 3 months (4) Elevated lactic acid level: -resolved on this admission (5) Hypotension: Leukocytosis -patient had hypotension when he had the GI bleed and the blood pressures stabilized with hospital treatment -blood cultures from 02/05/2020 were drawn to complete assessment of leukocytosis and recent soft blood pressures, but no current signs of infectious source at this time - patient has been afebrile. patient declines further hospitalization on 02/06/2020. will notify patient if blood culture results are positive (6) Transaminitis: -Mostly related to hypovolemic shock; his AST and ALT were as high as 1177 / 1221 on 01/29/2020 as this correlates with acute event related to GI bleed -liver enzymes downtrended (7) Systolic congestive heart failure with reduced left ventricular function, NYHA class 2: -Echo on 01/23/2020 showed left ventricular systolic function is severely reduced with ejection fraction 15 to 20%. -Repeat echo on 01/24/2020 showed left ventricular systolic function is mildly reduced with ejection fraction 45 (approx baseline) -bedside echocardiogram when he was under mechanical ventilation was not adequate -patient likely will need cardiology clinic follow up -continue to hold aspirin and plavix because of GI bleed on this admission -supplementary potassium given on 02/04/2020 (8) Acute metabolic encephalopathy: -resolved (9) NOLBERTO (acute kidney injury): -Creatinine 1.6 admission which peaked as 3.5 on 01/29/2020 as this correlate with acute event related to GI bleed -his creatinine improved with renal perfusion from IV fluids and blood transfusions on this admission -creatinine at baseline (10) History of tobacco use disorder: -Relapsed Counseling on smoking cessation Total Time Total Time Spent Total Time Spent (In Minutes): 40 minutes Total Time Includes: Examination of the Patient, Discharge Planning, Medication Reconciliation and Communication With Other Providers Discharge Plan Discharge Items Patient Disposition: Home - Home Health Services Reason For Visit: HYPERCARBIC RESP FAILURE Discharge Diagnosis: Acute on chronic respiratory failure with hypoxia and hypercapnia Stage 4 very severe COPD by GOLD classification Acute GI bleed Systolic congestive heart failure with reduced left ventricular function, NYHA class 2 Leukocytosis Condition on Discharge: Fair Activity: Resume your previous activity Non-emergency contact: Primary Care Provider and Traffic Circuit Engineer Call non-emergency contact if: you have any medication questions Follow-up/Referrals: Izabela Gonzalez DO [Primary Care Provider] - Diet: Carb Consistent or DM2 and Heart Healthy Oriana Attending Provider Instructions: patient's preferred pharmacy is [facility] pharmacy [address] [place] [place] [address] -patient has undertaken measures to obtain respirator inhalers for home use -patient can take methylprednisone dose pack as sent to [facility] pharmacy if acute more short of breath -based on recent hospital blood pressures, patient's furosemide will be 20 mg daily -lisinopril to be avoided until repeat blood pressure with primary care doctor -discharge on pantoprazole 40 mg twice a day (will need to be on this medication for total of 3 months) -patient is advised not to continue aspirin or clopidogrel at this time because of GI bleed and should re-discuss with primary care doctor / cardiology clinic; avoid NSAIDs patient will need to schedule with primary care doctor in 7 to 10 days of hospi sabine discharge for follow routine labs (CBC, basic metabolic panel) and medication reconciliation or adjustments patient will need to follow up with cardiology clinic because of changes to cardiovascular medications patient will need follow up with [facility], Dr. Metzger, [address] [place] [address] previously scheduled appointments 03/15/2020 11:20 AM Provider Izabela Gonzalez DO Department Family Practice [facility] 03/23/2020 9:00 AM Provider Misael Zee PA-C Department Cardiology, [facility] Amisha Operating Room Assistant Provider Instructions: This is a 59 year old male with very severe obstructive lung disease who presented to the emergency department on 01/22/2020 in severe respiratory distress -patient required ICU admission and intubation, extubated on 01/23/2020 -He was transferred back to the ICU 01/29/2020 early in the morning with hemodynamically significant active GI bleed requiring intensive resuscitation and again had to be intubated -S/P EGD on 01/29/2020 with findings of duodenal ulcer with actively spurting hemorrhage was found in the duodenal bulb, Injected with epinephrine and clip; recommendations of holding off anti-platelets of at least 7 days and also be on pantoprazole twice a day for 3 months -completed course of IV antibiotics -extubated on 02/01/2020 CHF discharge instructions Call your Primary Care doctor if any of the following symptoms or problems start or get worse: * Shortness of breath or difficulty breathing * Wake up at night short of breath * Chest pain * Cough * Swelling of your hands, feet, or legs * More fatigued or tired with your normal activity * Palpitations - sudden fast heart beats WEIGHT * Weigh yourself every morning after using the bathroom. * Use the same scale. * Wear the same amount of clothing. * Write your weight down on a chart. * Call your Primary Care doctor if you gain more than 2-3 pounds in 1-2 days. MEDICATIONS * Use this discharge instruction sheet for medication instructions. * Take your medications at the time your doctor ordered. * Do not skip a dose of your medicines. * If you miss a dose of medicine, take it as soon as possible, but DO NOT DOUBLE A DOSE. * Read your medicine information when you get home. * Know all of the side effects of your medicine. If in doubt, ask your pharmacist * Call your Primary Care doctor's office if you have any side effects. * Be sure all of your doctors know what medicine and herbs you take (including cold, flu, and herbal medicine). Take the following with you to your follow-up doctor appointments: * Weight Chart * Medication List * List of questions Do not drink excessive alcohol, beer or wine. Pending Studies at Discharge: No Studies:: blood cultures from 02/05/2020 were drawn to complete assessment of leukocytosis and recent soft blood pressures, but no current signs of infectious source at this time. patient declines further hospitalization on 02/06/2020. will notify patient if blood culture results are positive Stand-Alone Forms: My [facility] [employer], Smoking Cessation Medications and DC Order Prescriptions: New pantoprazole 40 mg Tablet,Delayed Release (Dr/Ec) 40 mg PO BID 30 Days Qty: 60 RF: 2 furosemide 20 mg tablet 20 mg PO DAILY 30 Days Qty: 30 RF: 0 methylprednisolone [Medrol (Willis)] 4 mg tablets,dose pack 4 mg PO UD 6 Days Qty: 21 RF: 0 Continued ipratropium-albuterol 0.5 mg-3 mg(2.5 mg base)/3 mL solution for nebulization 3 ml INHALATION Q6H PRN (Reason: shortness of breath or wheezing) Qty: 360 RF: 11 Advair HFA 230-21 mcg/actuation HFA aerosol inhaler 2 puff INHALATION Q12 Qty: 3 RF: 3 albuterol sulfate [Ventolin HFA] 90 mcg/actuation HFA aerosol inhaler 2 puff INHALATION Q4 PRN (Reason: COPD) Qty: 3 RF: 3 Daliresp 500 mcg tablet 500 mcg PO QAM 90 Days Qty: 90 RF: 3 bupropion HCl 150 mg tablet extended release 24 hr 300 mg PO QAM RF: 0 rosuvastatin 20 mg tablet 20 mg PO DAILY RF: 0 (DME) Non invasive ventilator DME Misc See Rx Instructions .ROUTE .MEDSUPPLY Qty: 1 RF: 0 cholecalciferol (vitamin D3) [Vitamin D3] 1,000 unit Capsule 1,000 unit PO QAM RF: 0 escitalopram oxalate 10 mg tablet 20 mg PO QAM RF: 0 metoprolol succinate 25 mg Tablet Extended Release 24 Hr 25 mg PO QAM 30 Days Qty: 30 RF: 5 Spiriva Respimat 2.5 mcg/actuation mist 2 puff INHALATION QDL Qty: 4 RF: 5 Discontinued prednisone 10 mg tablet 10 mg PO DAILY Qty: 90 RF: 1 furosemide 40 mg Tablet 40 mg PO QAM 30 Days Qty: 30 RF: 3 lisinopril [Zestril] 40 mg Tablet 40 mg PO QAM 30 Days Qty: 30 RF: 5 clopidogrel 75 mg Tablet 75 mg PO QAM 30 Days Qty: 30 RF: 5 aspirin 81 mg Tablet,Delayed Release (Dr/Ec) 81 mg PO QAM RF: 0 Discharge Orders: Discharge Order (Routine); Ordered 02/06/20 Ordered By: Vimal Ecsalona Admission Data Admit Date/Time: 01/22/20 10:30 Attending Provider: Vimal Escalona Admit Provider: Jesús Valdez Primary Care Provider: Izabela Gonzalez Other Providers: [facility] ; Beverley Trevino ; Rashad Car ; Mir Hartley ; Jah Le
== END 2020-02-06 16:36 | disposition home health service (06) | DRG 208 ==
LOC: ED 09:13 → 1E 10:30 → SUATTDRO 10:30 → 1E 12:45 → 2S 01-26 18:54 → 1E 01-29 03:44 → 2N 02-02 21:29

== ENCOUNTER 2023-10-26 15:53 | Inpatient (IN) ==
--- NOTE | 2023-10-26 16:03 | Emergency Department Note ---
Impression & Plan SBO (small bowel obstruction), Vomiting, Elevated troponin I level, Acute hyponatremia, NOLBERTO (acute kidney injury) ED Provider Note NAME: NHUNG YANEZ AGE: 62 SEX: M : 1960 ARRIVES VIA: Ambulance INFORMANT: Patient, the patient's significant other, EMS ED PROVIDER(S): Yash Elmore DO CHIEF COMPLAINT: Vomiting HPI: The patient is a 62-year-old male who presented to the emergency department for evaluation of nausea vomiting. The patient has a history of heart failure but also ischemic heart disease. He also has a history of diverticulitis with surgical intervention. The patient came to the emergency department today because of nausea vomiting. The patient started having problems with decreased bowel movements over the course the last few weeks. He then started having nausea and vomiting over the last 3 days. Initially it was green but now he states it has a much darker appearance. He denies having any fever. He denies having any black or tarry stools. The patient has not been seen by his family doctor but because symptoms worsened and he was not able to take any of his outpatient medication he came to the emergency department for further evaluation. ROS: See above HPI for pertinent positives & negatives. A total of 10 systems reviewed and were otherwise negative. PAST MEDICAL HISTORY: See Below PAST SURGICAL HISTORY: See Below FAMILY HISTORY: See Below SOCIAL HISTORY: See Below HOME MEDICATIONS: See Below ALLERGIES: See Below VITALS: See Below PHYSICAL EXAMINATION: GENERAL: Patient is awake alert in no acute distress patient is resting comfortably and showing no signs of anxiety EYES: The conjunctivae are clear. The pupils are round and reactive. EARS, NOSE, MOUTH AND THROAT: The nose is without any evidence of any deformity. NECK: The neck is nontender and supple. RESPIRATORY: Diminished breath sounds are noted throughout. CARDIOVASCULAR: Regular rate and rhythm noted there no murmurs rubs or gallops normal S1 normal S2. GASTROINTESTINAL: The abdomen was distended. There is no specific guarding or rigidity. There was tenderness in the upper abdomen. MUSCULOSKELETAL/EXTREMITIES: There is no evidence of gross deformity full range of motion is noted in the hips and shoulders. SKIN: There is no obvious evidence of any rash. There are no petechiae, pallor or cyanosis noted. NEUROLOGIC: Patient is awake alert and oriented x3 MEDICAL DECISION MAKING: The patient is a 62-year-old male who presented to the emergency department for an evaluation of nausea vomiting. The patient had abdominal distention. He has a history of bowel resection in the past for diverticulitis. I discussed patient's laboratory and radiographic studies with him. He was treated with IV fluids in the emergency department. He was also treated with IV antiemetics. On reevaluation he was somewhat improved. Radiographic studies do appear to be consistent with a bowel obstruction. Given the patient's underlying respiratory issues I do feel he would benefit from an NG tube. The patient would be a good candidate for inpatient management. I [facility] I do have a call out to the on-call general surgeon as well. Triage Nursing notes reviewed. Prior medical records reviewed Vital Signs: reviewed and remarkable for elevated blood pressure. Differential diagnosis: Gastroenteritis, food borne illness, infections, appendicitis, diverticulitis, inflammatory bowel disease, obstruction, GI bleed, biliary pathology, volvulus, as well as other pathologies. ER treatment provided: See below Diagnostics interpreted by me: ECG: EKG was obtained in the emergency department. My interpretation is normal sinus rhythm at 77 bpm. There is no PVCs noted. T wave versions were noted in the anterior and low lateral leads. Incomplete right bundle branch block pattern was noted. This was compared to a tracing from January 30, 2020. No specific changes were noted. Prehospital EKG was obtained. I did review the tracing. My interpretation is sinus tachycardia 120 bpm. PACs were noted. Early transition was noted. Nonspecific ST segment abnormalities noted. This compares similar to the EKG obtained in the emergency department. Cardiac Monitoring: An order was placed for continuous cardiac monitoring. The monitor shows a rate of 81 bpm with sinus rhythm. Laboratory studies: As stated above and show below. Imaging studies: See below. Radiographic imaging was reviewed by myself Consultation(s): I discussed this case with Dr. Tay who is [facility]. ED COURSE: Procedures: none Critical Care: I have personally spent greater than 45 minutes of critical care time in the direct management of this patient. This includes bedside care, interpretation of diagnostic studies, and testing, discussion with consultants, patient, and family members, and other required patient management activities. This 45 minutes is in excess of all separately billable procedures. Past Med/Surg History Problem List (Updated 10/26/23 @ 17:27 by Yash Elmore DO) NOLBERTO (acute kidney injury) (Acute) Acute hyponatremia (Acute) Elevated troponin I level (Acute) Vomiting (Acute) SBO (small bowel obstruction) (Acute) Emphysema of lung (Chronic) COPD (chronic obstructive pulmonary disease) (Chronic) Asthma (Chronic) Encounter for pre-operative examination Encounter for screening colonoscopy Nicotine use disorder COPD with acute exacerbation Acute on chronic respiratory failure with hypoxia and hypercapnia (Acute) Non-ST elevated myocardial infarction (non-STEMI) (Acute) Acute respiratory acidosis (Acute) On home oxygen therapy (Acute) Elevated lactic acid level (Acute) Ischemic heart disease Systolic congestive heart failure with reduced left ventricular function, NYHA class 2 Apical ballooning syndrome Acute metabolic encephalopathy History of tobacco use disorder NOLBERTO (acute kidney injury) High serum lactate Acute GI bleeding Hypotension Hypovolemic shock Duodenal ulcer Transaminitis Stage 4 very severe COPD by GOLD classification Chronic respiratory failure with hypoxia and hypercapnia Medical History Arthritis History of GI bleed GERD (gastroesophageal reflux disease) Anxiety and depression Myocardial Infarction ? 07/2019 (FOLLOWS WITH DR. 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 Asthma LAST USED RESCUE INAHLER>TODAY "USUALLY TAKES BEFORE ACTIVITY TO PREVENT SOB" COPD exacerbation Surgical History History of esophagogastroduodenoscopy (EGD) History of colonoscopy Lowber teeth removed History of cardiac cath 07/2019>NO STENTS History of herniorrhaphy X 5 History of bowel resection R/T DIVERTICULITIS Family History Other Hypertension No family history of adverse response to anesthesia Social History Smoking Status: Former smoker Tobacco Type: Cigarettes Age Started Using Tobacco: 14; Age Quit Using Tobacco: 59; Cigarettes Per Day: 1-3ppd; Second Hand Exposure: Yes (IN THE PAST); Do You Dip or Chew Tobacco: No; Hx Alcohol Use: No (QUIT 17 YEARS AGO) Hx Substance Use: Yes Last Used Substance: Days (ago) Last Used Substance Other:: LAST USED A COUPLE WEEKS AGO Preferred Language: Tunisian Communication Ability: Unable Communication Ability Comment: Sedated and intubated Slot Tag Inserter Required: No Beliefs That Will Affect Care: None marital status: Current Living Situation: Spouse Current Living Situation Comment: SPOUSE Feels Safe at Home: Yes Assistive Devices: Glasses and Oxygen - Continuous Allergies Allergies Allergy/AdvReac Type Severity Reaction Status Date / Time No Known Drug Allergies Allergy Unknown Verified 09/12/23 16:44 Home Meds Home Medications Medication Instructions Recorded Confirmed rosuvastatin 20 mg tablet 20 mg PO QAM 11/04/19 09/12/23 furosemide 20 mg tablet 20 mg PO QAM 03/08/20 09/12/23 bupropion HCl 300 mg 24 hr tablet, 300 mg PO QAM 08/02/20 09/12/23 extended release escitalopram oxalate 20 mg tablet 20 mg PO QAM 08/02/20 09/12/23 ropinirole 1 mg tablet 1 mg PO HS 08/02/20 09/12/23 ipratropium 0.5 mg-albuterol 3 mg 3 ml inhalation Q6H PRN shortness 09/12/23 (2.5 mg base)/3 mL nebulization of breath or wheezing soln Previous Rx's Medication Instructions Recorded metoprolol succinate 25 mg 25 mg PO QAM 30 days #30 tabs 08/05/19 tablet,extended release 24 hr Non invasive ventilator DME #1 ea 11/04/19 tezepelumab-ekko 210 mg/1.91 mL 210 mg (1.91 mL) subcut .COMPLEX 09/20/21 (110 mg/mL) subcutaneous syringe #1.91 mL (Tezspire) prednisone 5 mg tablet 7.5 mg (1.5 x 5 mg) PO DAILY #60 06/18/22 tabs roflumilast 500 mcg tablet 500 mcg PO QAM 90 days #90 tabs 08/03/22 (Daliresp) Portable Oxygen #1 ea 11/05/22 tiotropium bromide 2.5 2 puff inhalation QDL #3 Inhalers 01/31/23 mcg/actuation mist for inhalation (Spiriva Respimat) fluticasone propionate 230 2 puff inhalation Q12 #3 Inhalers 02/04/23 mcg-salmeterol 21 mcg/actuation HFA inhaler (Advair HFA) oxycodone 5 mg tablet 5 mg PO Q4H PRN pain #15 tabs 02/27/23 azithromycin 250 mg tablet 250 mg PO MOWEFR 30 days #12 tabs 03/19/23 Ventolin HFA 90 mcg/actuation 2 puff inhalation Q4 PRN COPD #3 08/23/23 aerosol inhaler (albuterol sulfate) Inhalers Results & Data (ED) Vital Signs Vital Signs - 24 hr 10/26/23 16:01 10/26/23 16:22 10/26/23 16:35 Temperature 36.9 C Temperature Source Oral Pulse Rate 82 81 Pulse Strength Normal Respiratory Rate 19 Respiratory Effort / Characteristics Non-Labored Spontaneous Respiratory Depth Normal Respiratory Pattern Regular Blood Pressure 142/65 H Blood Pressure Mean 90 Pulse Oximetry 98 93 Oxygen Delivery Method Nasal Cannula Nasal Cannula Oxygen Flow Rate 2 4 Sepsis Recent Fever Within 48 Hours No Sepsis New/Unexplained Change in Mental Status No Sepsis Action Taken by Nursing No Action Required Home Medications Current Medication List: was personally reviewed by me Laboratory Data Attestation: I reviewed the patient's lab results. 10/26/23 16:20 10/26/23 16:20 Lab Results 10/26/23 10/26/23 Range/Units 16:20 16:27 WBC 13.58 H (4.8-10.8) K/ul RBC 5.68 (4.70-6.10) M/uL Hgb 16.7 (14.0-18.0) g/dl POC Hgb 17.7 (14.0-18.0) g/dl Hct 50.3 (42.0-52.0) % POC Hct 52 (42-52) % MCV 88.6 (80.0-100.0) fL MCH 29.4 (25.0-34.0) pg MCHC 33.2 (32.0-36.0) g/dL RDW Std Deviation 41.1 (36.4-46.3) fL RDW Coeff of Nevin 12.6 (11.5-14.5) % Plt Count 291 (130-400) K/uL MPV 9.4 (9.4-12.4) fL Immature Gran % (Auto) 0.5 % Neut % (Auto) 75.4 % Lymph % (Auto) 11.7 % [facility] % (Auto) 12.0 % Eos % (Auto) 0.1 % Baso % (Auto) 0.3 % Neut # (Auto) 10.24 H (1.40-6.50) K/uL Lymph # (Auto) 1.59 (1.20-3.40) K/uL [facility] # (Auto) 1.63 H (0.11-0.59) K/uL Eos # (Auto) 0.01 (0.00-0.50) K/uL Baso # (Auto) 0.04 (0.00-0.20) K/uL Immature Gran # (Auto) 0.07 (0.01-0.20) K/uL PT 11.0 (9.0-12.0) Seconds INR 1.0 (0.9-1.1) APTT 24 (21-31) Seconds PTT Ratio 0.9 VBG pH 7.37 (7.36-7.41) VBG pCO2 69 H (38-50) mmHg VBG pO2 30 mmHg VBG HCO3 40 mmol/L VBG O2 Saturation < 60.0 % VBG Base Excess 11.6 mEq/L POC Sodium 129 L (135-144) mmol/L Sodium 131 L (136-145) mmol/L POC Potassium 3.5 (3.3-5.0) mmol/L Potassium 3.8 (3.5-5.1) mmol/L POC Chloride 83 L (101-112) mmol/L Chloride 83 L (98-107) mmol/L Carbon Dioxide 38 H (21-32) mmol/L POC Total CO2 37 H (24-31) mmol/L Anion Gap 10 (3-11) POC Anion Gap 14.0 L (16-25) mmol/L POC BUN 38 H (7-18) mg/dl BUN 40 H (6-23) mg/dl Creatinine 1.55 H (0.6-1.4) mg/dl POC Creatinine 1.7 H (0.6-1.3) mg/dl Est Cr Clr Drug Dosing 58.1 ml/min Est GFR ( Amer) 55.2 ml/min Est GFR (Non-Af Amer) 47.6 ml/min BUN/Creatinine Ratio 25.8 H (10-20) Glucose 155 H (70-99(Fasting)) mg/dl POC Glucose (other) 158 H (70-99) mg/dl Calcium 9.4 (8.6-10.3) mg/dl POC Ioniz Calcium Gerardo 1.09 L (1.12-1.32) mmol/l Magnesium 2.2 (1.7-2.4) mg/dl Total Bilirubin 1.0 (0.2-1.0) mg/dl AST 20 (13-39) U/L ALT 12 (7-52) U/L Alkaline Phosphatase 73 (34-104) U/L Troponin I High Sens 69.7 H* (0-20) pg/ml Total Protein 6.5 (6.0-8.3) gm/dl Albumin 3.8 (3.4-5.0) gm/dl Globulin 2.7 (2.5-4.0) gm/dl Albumin/Globulin Ratio 1.4 (0.9-2) Lipase 14 (11-82) U/L Administered Medications Discontinued Medications Sodium Chloride (Nss) 500 mls @ 999 mls/hr IV .Q31M STA Stop: 10/26/23 16:28 Last Admin: 10/26/23 16:12 Dose: Not Given Documented By: GRIFFIN Promethazine HCl (Phenergan) 12.5 mg in 50.5 mls @ 202 mls/hr IV NOW STA Stop: 10/26/23 16:12 Last Infusion: 10/26/23 16:37 Dose: Infused Documented By: Admin: 10/26/23 16:12 Dose: 202 mls/hr Documented By: GRIFFIN Sodium Chloride (Nss) 500 mls @ 999 mls/hr IV .Q31M ONE Stop: 10/26/23 16:33 Last Admin: 10/26/23 16:12 Dose: 999 mls/hr Documented By: GRIFFIN Ioversol (Optiray 320 100ml) 94 ml IV ONCE ONE Stop: 10/26/23 16:42 Last Admin: 10/26/23 16:43 Dose: 94 ml Documented By: LYNN Midazolam HCl (Midazolam Hcl 1 Mg/Ml 2ml Vial) 1 mg IV NOW STA Stop: 10/26/23 17:14 Last Admin: 10/26/23 17:23 Dose: 1 mg Documented By: RGIFFIN Imaging Data Attestation: I personally reviewed and interpreted this imaging study as follows: My Impression: 1 view chest x-ray was obtained in the emergency department. My interpretation is dilated loops of bowel noticed under the diaphragm. Dilated stomach was noted, no free air was noted, final report below. CT of the abdomen and pelvis was obtained in the emergency department. My interpretation is dilated loops of small bowel possible small bowel obstruction, final report pending. Radiologist's Impression: Chest X-Ray 10/26/23 15:58 XR chest 1V portable CLINICAL HISTORY: vomiting TECHNIQUE: Single frontal radiograph of the chest was obtained. Comparison: Comparison is made to chest radiograph 02/06/2020 FINDINGS: No lines and tubes are seen. The cardiomediastinal silhouette is normal. The lungs are clear. No evidence of pleural effusion or pneumothorax. IMPRESSION: No acute chest disease. ACT 112: Negative or not required by law. Electronically signed by: Bret Franco M.D. 10/26/2023 4:57 PM Discharge Plan Visit Data Chief Complaint: Vomiting Stated Complaint: NAUSEA, VOMITING ED Provider: Yash Elmore Discharge Problem: SBO (small bowel obstruction), Vomiting, Elevated troponin I level, Acute hyponatremia, NOLBERTO (acute kidney injury) Patient Disposition: Being Evaluated by Hospitalist Forms Stand Alone Forms: My [facility] [place] Prescriptions Prescriptions: No Action prednisone 5 mg tablet 7.5 mg PO DAILY Qty: 60 3RF Rx Instructions: Decreased dose from 10 mg daily down by 2.5 mg every 3 weeks as tolerated Daliresp 500 mcg tablet 500 mcg PO QAM 90 Days Qty: 90 3RF (DME) Portable Oxygen Misc See Rx Instructions .Route Qty: 1 0RF Rx Instructions: Portable oxygen concentrator 2L/min via NC with exertion [id number] Spiriva Respimat 2.5 mcg/actuation mist 2 puff INHALATION QDL Qty: 3 3RF Hold Instructions: Med change Advair HFA 230-21 mcg/actuation HFA aerosol inhaler 2 puff INHALATION Q12 Qty: 3 3RF Hold Instructions: med change Rx Instructions: (3) MONTH SUPPLY albuterol sulfate [Ventolin HFA] 90 mcg/actuation HFA aerosol inhaler 2 puff INHALATION Q4 PRN (Reason: COPD) Qty: 3 3RF Rx Instructions: 3 MONTH SUPPLY -Needs to be Ventolin Brand only for insurance furosemide 20 mg tablet 20 mg PO QAM ipratropium-albuterol 0.5 mg-3 mg(2.5 mg base)/3 mL solution for nebulization 3 ml INHALATION Q6H PRN (Reason: shortness of breath or wheezing) rosuvastatin 20 mg tablet 20 mg PO QAM (DME) Non invasive ventilator DME Misc See Rx Instructions .ROUTE .MEDSUPPLY Qty: 1 0RF Rx Instructions: NON INVASIVE VENTILATOR. CARE PLUS O2 TO ASSESS PATIENT. Tezspire 210 mg/1.91 mL (110 mg/mL) syringe 210 mg subcut .COMPLEX Qty: 1.91 11RF Rx Instructions: Inject 210 mg subcut EVERY 4 WEEKS APPROVED thru pharmacy benefit GOOD 05/12/21-04/21/22 PA# [id number] Samples for now. Funding is closed azithromycin 250 mg tablet 250 mg PO MOWEFR 30 Days Qty: 12 6RF metoprolol succinate 25 mg Tablet Extended Release 24 Hr 25 mg PO QAM 30 Days Qty: 30 5RF escitalopram oxalate 20 mg Tablet 20 mg PO QAM bupropion HCl 300 mg Tablet Extended Release 24 Hr 300 mg PO QAM ropinirole 1 mg Tablet 1 mg PO HS oxycodone 5 mg tablet 5 mg PO Q4H PRN (Reason: pain) Qty: 15 0RF Referrals Referrals: Izabela Gonzalez DO [Primary Care Provider] - Discharge Problem: Vomiting Qualifiers: Vomiting type: unspecified Nausea presence: with nausea Qualified Code(s): R 11.2 - Nausea with vomiting, unspecified
[2023-10-26] MEDS: SODIUM CHLORIDE 0.9% 500 ML IV ONE ×2 (16:12→17:57)
[2023-10-26] MEDS: PROMETHAZINE 12.5 MG/50.5 ML BAG IV STA (16:12)
[2023-10-26] MEDS: SODIUM CHLORIDE 0.9% 500 ML IV STA (16:12)
[2023-10-26 16:38] LABS: Basophils # (auto) 0.04 K/uL (0.00-0.20); Basophils % (auto) 0.3 %; Eosinophils # (auto) 0.01 K/uL (0.00-0.50); Eosinophils % (auto) 0.1 %; Hematocrit (blood only) 50.3 % (42.0-52.0); Hemoglobin 16.7 g/dl (14.0-18.0); Immature Granulocytes # (auto) 0.07 K/uL (0.01-0.20); Immature Granulocytes % (auto) 0.5 %; Lymphocytes # (auto) 1.59 K/uL (1.20-3.40); Lymphocytes % (auto) 11.7 %; Mean Corpuscular Hemoglobin 29.4 pg (25.0-34.0); Mean Corpuscular Hgb Conc 33.2 g/dL (32.0-36.0); Mean Corpuscular Volume 88.6 fL (80.0-100.0); Mean Platelet Volume 9.4 fL (9.4-12.4); Monocytes # (auto) 1.63 K/uL (0.11-0.59); Neutrophils # (auto) 10.24 K/uL (1.40-6.50); Neutrophils % (auto) 75.4 %; Platelet Count 291 K/uL (130-400); RDW Coefficient of Variation 12.6 % (11.5-14.5); RDW Standard Deviation 41.1 fL (36.4-46.3); Red Blood Count 5.68 M/uL (4.70-6.10); White Blood Count 13.58 K/ul (4.8-10.8)
[2023-10-26 16:40] LABS: iSTAT Creatinine 1.7 mg/dl (0.6-1.3); iSTAT Hemoglobin 17.7 g/dl (14.0-18.0); iSTAT Ionized Calcium 1.09 mmol/l (1.12-1.32); iSTAT Potassium 3.5 mmol/L (3.3-5.0)
[2023-10-26] MEDS: OPTIRAY 320 100ml IV ONE (16:43)
[2023-10-26 16:45] LABS: Base Excess VBG 11.6 mEq/L; HCO3 VBG 40 mmol/L; Oxygen Saturation VBG < 60.0 %; PCO2 VBG 69 mmHg (38-50); PO2 VBG 30 mmHg; pH VBG 7.37 (7.36-7.41)
[2023-10-26 16:56] LABS: Albumin Globulin Ratio 1.4 (0.9-2); Albumin Level 3.8 gm/dl (3.4-5.0); BUN Creatinine Ratio 25.8 (10-20); Calcium 9.4 mg/dl (8.6-10.3); Creatinine Clr Calc Pharmacy 58.1 ml/min; Est GFR (African American) 55.2 ml/min; Est GFR (Non-African American) 47.6 ml/min; Globulin 2.7 gm/dl (2.5-4.0); Magnesium 2.2 mg/dl (1.7-2.4); Potassium 3.8 mmol/L (3.5-5.1); Total Protein 6.5 gm/dl (6.0-8.3)
--- NOTE | 2023-10-26 16:59 | XRay Report ---
XR chest 1V portable CLINICAL HISTORY: vomiting TECHNIQUE: Single frontal radiograph of the chest was obtained. Comparison: Comparison is made to chest radiograph 02/06/2020 FINDINGS: No lines and tubes are seen. The cardiomediastinal silhouette is normal. The lungs are clear. No evid ence of pleural effusion or pneumothorax. IMPRESSION: No acute chest disease. ACT 112: Negative or not required by law. Electronically signed by: Bret Franco M.D. 10/26/2023 4:57 PM
[2023-10-26 17:06] LABS: Troponin I High Sensitivity 69.7 pg/ml (0-20)
[2023-10-26 17:22] LABS: Partial Thromboplastin Ratio 0.9; Partial Thromboplastin Time 24 Seconds (21-31)
[2023-10-26] MEDS: MIDAZOLAM HCL 1 MG/ML 2ML VIAL IV STA (17:23)
--- NOTE | 2023-10-26 17:59 | CT Scan Report ---
CT abd pelvis IV con only CLINICAL HISTORY: vomitng TECHNIQUE: Helical axial images of the abdomen and pelvis were obtained and displayed. Automated dose lowering techniques and/or adjustment according to patient size were utilized for this exam. This e xam was performed with intravenous contrast. CT DOSE: 1328.53 mGy.cm COMPARISON: None available at the time of this dictation. Emphysema is seen with bibasilar atelectasi s versus scarring. FINDINGS: Lower chest: No acute abnormality. Liver: Hepatic cysts are seen. Gallbladder and biliary tree: No calcified gallstones. Normal caliber wall. No intra- or extrahepatic biliary ductal dilation. Pancreas: Unremarkable, no focal lesions. Spleen: Unremarkable. Adrenals: Unremarkable. Kidneys and ureters: Exophytic 10 mm hyperdense lesion is seen in the right superior pole. Subcentime ter hypodensities are seen which may represent cysts. Bladder: A bladder diverticulum is noted. Reproductive organs: Unremarkable. Bowel: The appendix is normal. Lymph nodes Retroperitoneal: Unremarkable. Pelvic: Unremarkable. Mesenteric: Unremarkable. Peritoneum: Normal. Vessels: Atherosclerotic calcifications are seen. Abdominal wall: Bilateral fat-containing inguinal hernias are seen. Bones: Degenerative changes in the visualized spine. Bone island is seen in the left pubic symphysis. IMPRESSION: No acute abnormalities and in particular no evidence of bowel obstruction. ACT 112: Negative or not required by law. Electronically signed by: Bret Franco M.D. 10/26/2023 5:58 PM
[2023-10-26 18:08] LABS: Appearance Urine Clear (Clear); Bacteria Urine Automated None Seen (None Seen); Bilirubin Urine Negative (Negative); Blood Urine Trace (Negative); Color Urine Yellow; Epithelial Cell Urine Auto 0-2 /hpf (0-2); Glucose Urine UA Negative (Negative); Ketones Urine Negative (Negative); Leukocyte Esterase Urine Negative (Negative); Nitrite Urine Negative (Negative); Protein Urine Negative (Negative); Specific Gravity Urine 1.017 (1.000-1.030); Urobilinogen Urine Negative (Negative); WBC Urine Automated 0-5 /hpf (0-5); pH Urine 5.5 (4.5-7.5)
[2023-10-26] MEDS ORDERED: PROMETHAZINE HCL 12.5 MG in SODIUM CHLORIDE 0.9% 50 ML IV PRN (18:26)
--- NOTE | 2023-10-26 18:26 | History & Physical Report ---
Date of Service October 26, 2023 Assessment & Plan (1) SBO (small bowel obstruction): Plan: Presented with abdominal distention nausea vomiting and constipation Suspected to be SBO but CAT scan compatible with SBO Will keep him n.p.o. and give IV fluid and also symptomatic medication Surgery consult requested-advised to have NG tube and suction Noted to have hyponatremia but not severe and electrolytes are otherwise unremarkable Will monitor PRP Has leukocytosis Will start intravenous Zosyn to cover respiratory and pulmonary pathogens same time Could be secondary to his stress Will monitor CBC (2) Acute hyponatremia: Plan: Sodium is 129 Sodium has been on the lower side at 131 prior to this Will give intravenous fluid small amount and hold off any Lasix at this time Monitor. (3) COPD (chronic obstructive pulmonary disease): Plan: Significant COPD under care of Dr. Reynolds Has been using home oxygen to maintain saturation around 89 Continue with the current home medications (4) Acute on chronic respiratory failure with hypoxia and hypercapnia: Plan: History of chronic respiratory failure Has been requiring little more oxygen than at home Continue with the current medications and expected to improve (5) Systolic congestive heart failure with reduced left ventricular function, NYHA class 2: Plan: Not showing any flow rate CHF Has mild dehydration Will give cautious amount of intravenous fluid and hold diuretics Elevated troponin May be secondary to a stress-induced, no EKG changes and doubt any ACS Will repeat troponin (6) Duodenal ulcer: Plan: Continue Protonix Other significant medical conditions are as below; Sleep apnea on nocturnal trilogy History of colon resection in 2005 secondary to recurrent diverticulitis History of asthma and allergy and has been getting immunotherapy as an outpatient History of Present Illness Chief Complaint: Abdominal pain, distention, nausea, vomiting and constipation for the last 4 days Primary Care Provider: Izabela Gonzalez DO He is a 62-year-old male with significant past medical history of COPD with chronic respiratory failure on oxygen, on nocturnal trilogy at home, history of NSTEMI, asthma/allergy, systolic congestive heart failure with reduced EF ,history of duodenal ulcer and also history of bowel resection in 2005 for recurrent diverticulitis apparently has been complaining of abdominal discomfort with distention associated with nausea vomiting and constipation for the last 4 days. The condition got worse today that he is here in the emergency room and also complains to have increasing shortness of breath and he has cough with whitish phlegm. Denies any chest pain and/or palpitation. He is not constipated usually but for the last 4 days has been passing minimal amount of pellet-like stool. His last bowel movement was yesterday morning. Denies any fever and or chills. Denies any leg swelling and does not have any numbness or tingling involving any of the extremities. Initially was thought to have intestinal obstruction given the symptoms but the CAT scan came back negative for any SBO. He will be admitted to medical telemetry unit for continuation of care. Allergies Allergy/AdvReac Type Severity Reaction Status Date / Time No Known Drug Allergies Allergy Unknown Verified 10/26/23 17:53 Home Medications Medication Instructions Recorded Confirmed Type metoprolol succinate 25 mg 25 mg PO QAM 30 days #30 tabs 08/05/19 10/26/23 Rx tablet,extended release 24 hr Non invasive ventilator DME #1 ea 11/04/19 10/26/23 Rx rosuvastatin 20 mg tablet 20 mg PO QAM 11/04/19 10/26/23 History furosemide 20 mg tablet 40 mg PO QAM 03/08/20 10/26/23 History bupropion HCl 300 mg 24 hr tablet, 300 mg PO QAM 08/02/20 10/26/23 History extended release tezepelumab-ekko 210 mg/1.91 mL 210 mg (1.91 mL) subcut .COMPLEX 09/20/21 10/26/23 Rx (110 mg/mL) subcutaneous syringe #1.91 mL (Tezspire) Portable Oxygen #1 ea 11/05/22 10/26/23 Rx fluticasone propionate 230 2 puff inhalation Q12 #3 Inhalers 02/04/23 10/26/23 Rx mcg-salmeterol 21 mcg/actuation HFA inhaler (Advair HFA) azithromycin 250 mg tablet 250 mg PO MOWEFR 30 days #12 tabs 03/19/23 10/26/23 Rx Ventolin HFA 90 mcg/actuation 2 puff inhalation Q4 PRN COPD #3 08/23/23 10/26/23 Rx aerosol inhaler (albuterol sulfate) Inhalers ipratropium 0.5 mg-albuterol 3 mg 3 ml inhalation Q6H PRN shortness 09/12/23 10/26/23 History (2.5 mg base)/3 mL nebulization of breath or wheezing soln duloxetine 60 mg capsule,delayed 60 mg PO QAM 10/26/23 10/26/23 History release prednisone 10 mg tablet 10 mg PO DAILY 10/26/23 10/26/23 History ropinirole 3 mg tablet 3 mg PO HS 10/26/23 10/26/23 History tiotropium bromide 2.5 2 puff inhalation HS 10/26/23 10/26/23 History mcg/actuation mist for inhalation (Spiriva Respimat) Past Med/Surg History Problem List (Updated 10/26/23 @ 18:19 by Yoko Tay MD) Sleep apnea "TRELEGY MACHINE" Asthma LAST USED RESCUE INAHLER>TODAY "USUALLY TAKES BEFORE ACTIVITY TO PREVENT SOB" NOLBERTO (acute kidney injury) (Acute) Acute hyponatremia (Acute) Elevated troponin I level (Acute) Vomiting (Acute) SBO (small bowel obstruction) (Acute) Emphysema of lung (Chronic) COPD (chronic obstructive pulmonary disease) (Chronic) Asthma (Chronic) Encounter for pre-operative examination Encounter for screening colonoscopy Nicotine use disorder COPD with acute exacerbation Acute on chronic respiratory failure with hypoxia and hypercapnia (Acute) Non-ST elevated myocardial infarction (non-STEMI) (Acute) Acute respiratory acidosis (Acute) On home oxygen therapy (Acute) Elevated lactic acid level (Acute) Ischemic heart disease Systolic congestive heart failure with reduced left ventricular function, NYHA class 2 Apical ballooning syndrome Acute metabolic encephalopathy History of tobacco use disorder NOLBERTO (acute kidney injury) High serum lactate Acute GI bleeding Hypotension Hypovolemic shock Duodenal ulcer Transaminitis Stage 4 very severe COPD by GOLD classification Chronic respiratory failure with hypoxia and hypercapnia Medical History Arthritis History of GI bleed GERD (gastroesophageal reflux disease) Anxiety and depression Myocardial Infarction ? 07/2019 (FOLLOWS WITH DR. 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 Asthma LAST USED RESCUE INAHLER>TODAY "USUALLY TAKES BEFORE ACTIVITY TO PREVENT SOB" COPD exacerbation Surgical History History of esophagogastroduodenoscopy (EGD) History of colonoscopy [place] teeth removed History of cardiac cath 07/2019>NO STENTS History of herniorrhaphy X 5 History of bowel resection R/T DIVERTICULITIS Family History Other Hypertension No family history of adverse response to anesthesia Social History Smoking Status: Former smoker Tobacco Type: Cigarettes Age Started Using Tobacco: 14; Age Quit Using Tobacco: 59; Cigarettes Per Day: 1-3ppd; Second Hand Exposure: Yes (IN THE PAST); Do You Dip or Chew Tobacco: No; Hx Alcohol Use: No (QUIT 17 YEARS AGO) Hx Substance Use: Yes Last Used Substance: Days (ago) Last Used Substance Other:: LAST USED A COUPLE WEEKS AGO Preferred Language: Greek Communication Ability: Unable Communication Ability Comment: Sedated and intubated Senior Hydrogeologist Required: No Beliefs That Will Affect Care: None marital status: Current Living Situation: Spouse Current Living Situation Comment: SPOUSE Feels Safe at Home: Yes Assistive Devices: Glasses and Oxygen - Continuous Review of Systems Review of Systems: All systems reviewed and are unremarkable except as noted below Physical Exam Physical Exam: Lying in bed with acute distress due to shortness of breath and cough Constitutional: well developed, well nourished, + ill appearing and + obese Eyes: PERRL, conjunctivae normal, anicteric sclerae ENMT: external ear and nose normal, oropharynx normal Neck: trachea midline, no thyromegaly Respiratory: + respiratory distress (Moderate respira tory distress at rest) Auscultation: + diminished lung sounds and + crackles (Crackles bibasilarly more on the right than the left) Cardiovascular: Rate/Rhythm: regular rate and regular rhythm; not tachycardic Heart Sounds: normal S1 and normal S2; no murmur Extremities: no edema Gastrointestinal (Abdomen): Inspection/Auscultation: + abdomen distended (Minimally distended but soft and nontender) and normal bowel sounds (Decreased) Percussion/Palpation: + abdomen tender (Minimal tenderness) and abdomen soft; no guarding and abdomen not rigid Musculoskeletal: No acute arthritis involving any of the joint Neurologic: normal touch/pain/proprioception and moves all extremities; no focal motor deficits Lymphatic: no cervical or axillary lymphadenopathy Results & Data Results & Data Vital Signs (Past 12 Hours) Vital Signs Temp Pulse Pulse Resp BP BP Pulse Ox 10/26/23 18:06 78 18 121/90 96 10/26/23 16:35 93 10/26/23 16:22 81 10/26/23 16:01 36.9 C 82 19 142/65 H 98 O2 Del Method O2 Flow Rate 10/26/23 18:06 Nasal Cannula 4 10/26/23 16:35 Nasal Cannula 4 10/26/23 16:22 10/26/23 16:01 Nasal Cannula 2 Laboratory Results Short CBC 10/26/23 Range/Units 16:20 WBC 13.58 H (4.8-10.8) K/ul Hgb 16.7 (14.0-18.0) g/dl Hct 50.3 (42.0-52.0) % Plt Count 291 (130-400) K/uL BMP 10/26/23 16:20 Sodium 131 L Potassium 3.8 Chloride 83 L Carbon Dioxide 38 H BUN 40 H Creatinine 1.55 H Glucose 155 H Calcium 9.4 Liver Function 10/26/23 Range/Units 16:20 Total Bilirubin 1.0 (0.2-1.0) mg/dl AST 20 (13-39) U/L ALT 12 (7-52) U/L Alkaline Phosphatase 73 (34-104) U/L Albumin 3.8 (3.4-5.0) gm/dl Urine 10/26/23 Range/Units 16:59 Urine Color Yellow Urine Appearance Clear (Clear) Urine pH 5.5 (4.5-7.5) Ur Specific [place] 1.017 (1.000-1.030) Urine Protein Negative (Negative) Urine Glucose (UA) Negative (Negative) Medications Administered Current Inpatient Medications Heparin Sodium (Porcine) (Heparin Sod 5,000 Unit/0.5 Ml Vial) 5,000 units SQ Q12 JUDD Stop: 11/25/23 20:59 Code Status & VTE Plan VTE Prophylaxis Plan VTE Prophylaxis will be ordered: Yes
[2023-10-26] MEDS: PIPER/TAZO 4.5g in D5W MINI-B 100 ML IV ONE (19:25)
[2023-10-26] MEDS: NSS + 20MEQ KCL 20 MEQ/1,000 ML BAG IV SCH (19:26)
--- NOTE | 2023-10-26 19:38 | Surgery Consultation ---
Date of Consultation October 26, 2023 Assessment & Plan (1) Vomiting: The patient is being admitted on the hospital service. From surgery perspective we recommend proceeding as follows: The patient CT scan was reviewed and although there is some distention of the stomach and some dilated loops of small bowel does not have the typical appearance of a small bowel obstruction. Is possible patient may be suffering from a gastroenteritis. As noted, the patient is passing large amounts of flatus. Would recommend keeping the patient n.p.o. and as the patient clinically improves consideration be given to advance his diet beginning with clear liquids As the patient has not had any emesis nearly 7 hours I feel we can hold on placing an NG tube at this time IV fluids to be provided for hydration Antiemetics to be provided Serial labs should be followed Does appear that as though the patient has acute kidney injury and this may be on the basis of dehydration as the patient has been having nausea and vomiting for approximately 3 days and will hopefully improve with modalities described above If the patient clinically deteriorates/does not improve consideration will be given to repeating abdominal imaging with contrast Additional recommendations be forthcoming based on his clinical course as it unfolds Supervising Physician Co-Signing Physician Notes I personally saw and evaluated the patient with Balta Coburn PA-C and agree with the assessment and plan. 62-year-old male with nausea and vomiting, CT with a distended stomach but no overt signs of bowel obstruction His CT images and results were personally viewed and interpreted by myself He is being admitted to the medical team, keep n.p.o. for now No plans for any surgical intervention History of Present Illness Reason for Consultation: Nausea and vomiting, concern for small bowel obstruction History of Present Illness This is a 62-year-old male who presented to the emergency department secondary to nausea and vomiting. The patient notes that he has been having nausea and vomiting for approximately 3 days. The patient specifically notes that prior to having any nausea or vomiting he has not had any abdominal pain. Since his nausea and vomiting he does note some abdominal soreness but overall does not report any overt abdominal pain. He notes that he has been having very small bowel movements with his last bowel movement being this morning and he notes that it was small in caliber. He specifically denies any melena or hematochezia. He does, however note that he is passing large amounts of flatus. He notes that his emesis was greenish in color and his most recent episode of this was approximately 7 hours ago. He specifically denies any hematemesis. Patient notes that he has had a colonoscopy in the past and to the best of his knowledge some polyps were removed but there is no other significant pathology noted on this study. The patient also notes that he has had a history of a duodenal ulcer. His records were reviewed and he did have a history of GI bleed in January 2020 where he was noted to have a bleeding duodenal ulcer and esophagitis. Concerning previous abdominal surgeries the patient says that he has had multiple hernia repairs and he also had a partial colectomy secondary to diverticulitis. Since arrival to hospital patient has had labs and imaging which I independent reviewed. A CT scan of the abdomen and pelvis did show some distention of the patient's stomach and some dilated loops of small bowel. The interpreting radiologist noted that there is no evidence of bowel obstruction on this study however. Patient also had a chest x-ray that showed no evidence of pneumonia. Labs included CBC were white blood cell count was elevated at 13.5. Hemoglobin and hematocrit as well as platelet count were normal. Chemistry profile showed sodium was 131 with a normal potassium. The patient's BUN and creatinine were 40 and 1.5 respectively. (Review of records show that patient's most recent creatinine from November 2021 was within the normal range) a urinalysis was p erformed and was not indicative of infection. At the time of my interview he was resting comfortably in bed and he was in no distress Allergies Allergy/AdvReac Type Severity Reaction Status Date / Time No Known Drug Allergies Allergy Unknown Verified 10/26/23 17:53 Home Medications Medication Instructions Recorded Confirmed Type metoprolol succinate 25 mg 25 mg PO QAM 30 days #30 tabs 08/05/19 10/26/23 Rx tablet,extended release 24 hr Non invasive ventilator DME #1 ea 11/04/19 10/26/23 Rx rosuvastatin 20 mg tablet 20 mg PO QAM 11/04/19 10/26/23 History furosemide 20 mg tablet 40 mg PO QAM 03/08/20 10/26/23 History bupropion HCl 300 mg 24 hr tablet, 300 mg PO QAM 08/02/20 10/26/23 History extended release tezepelumab-ekko 210 mg/1.91 mL 210 mg (1.91 mL) subcut .COMPLEX 09/20/21 10/26/23 Rx (110 mg/mL) subcutaneous syringe #1.91 mL (Tezspire) Portable Oxygen #1 ea 11/05/22 10/26/23 Rx fluticasone propionate 230 2 puff inhalation Q12 #3 Inhalers 02/04/23 10/26/23 Rx mcg-salmeterol 21 mcg/actuation HFA inhaler (Advair HFA) azithromycin 250 mg tablet 250 mg PO MOWEFR 30 days #12 tabs 03/19/23 10/26/23 Rx Ventolin HFA 90 mcg/actuation 2 puff inhalation Q4 PRN COPD #3 08/23/23 10/26/23 Rx aerosol inhaler (albuterol sulfate) Inhalers ipratropium 0.5 mg-albuterol 3 mg 3 ml inhalation Q6H PRN shortness 09/12/23 10/26/23 History (2.5 mg base)/3 mL nebulization of breath or wheezing soln duloxetine 60 mg capsule,delayed 60 mg PO QAM 10/26/23 10/26/23 History release prednisone 10 mg tablet 10 mg PO DAILY 10/26/23 10/26/23 History ropinirole 3 mg tablet 3 mg PO HS 10/26/23 10/26/23 History tiotropium bromide 2.5 2 puff inhalation HS 10/26/23 10/26/23 History mcg/actuation mist for inhalation (Spiriva Respimat) Patient History Medical History Arthritis History of GI bleed GERD (gastroesophageal reflux disease) Anxiety and depression Myocardial Infarction ? 07/2019 (FOLLOWS WITH DR. ALVAREZ) Hypertension Hyperlipidemia Restless leg syndrome Chronic back pain Diverticular disease On home oxygen therapy 2L [place] CONT. COPD exacerbation Surgical History History of esophagogastroduodenoscopy (EGD) History of colonoscopy [place] teeth removed History of cardiac cath 07/2019>NO STENTS History of herniorrhaphy X 5 History of bowel resection R/T DIVERTICULITIS Family History Other Hypertension No family history of adverse response to anesthesia Social History Smoking Status: Former smoker Tobacco Type: Cigarettes Age Started Using Tobacco: 14; Age Quit Using Tobacco: 59; Cigarettes Per Day: 1-3ppd; Second Hand Exposure: No; Do You Dip or Chew Tobacco: No; Hx Alcohol Use: No Hx Substance Use: No Preferred Language: Hungarian Communication Ability: Effective Communication Ability Comment: Sedated and intubated Gas Plant Operator Required: No Beliefs That Will Affect Care: None marital status: Current Living Situation: Spouse Current Living Situation Comment: SPOUSE Other Information That Helps Us Care for You: No Feels Safe at Home: Yes Safety Concerns: Feels Safe At This Time Assistive Devices: Cane, Glasses and Walker Review of Systems Review of Systems: All systems reviewed & are unremarkable except as noted in HPI & below Physical Exam Constitutional: WD/WN, vitals as above Eyes: no conjunctival abnormality ENMT: Ears: no hearing impairment and no external ear abnormality Mouth: no oropharynx abnormality Neck: trachea midline Respiratory: normal respiratory effort; no respiratory distress and no labored breathing Cardiovascular: Rate/Rhythm: regular rate and regular rhythm Gastrointestinal (Abdomen): At the time my exam the patient's abdomen had minimal distention. There is no rigidity, tympany to percussion, or rebound tenderness/guarding. At the time of my exam there is no pain noted with palpation. Bowel sounds are present but hy poactive. Musculoskeletal: No calf tenderness Skin: no rashes Neurologic: moves all extremities Psychiatric: A+Ox3, euthymic affect Results & Data Vital Signs (Past 12 Hours) Vital Signs Temp Pulse Pulse Resp BP BP Pulse Ox 10/26/23 19:24 71 18 107/77 92 10/26/23 18:06 78 18 121/90 96 10/26/23 16:35 93 10/26/23 16:22 81 10/26/23 16:01 36.9 C 82 19 142/65 H 98 O2 Del Method O2 Flow Rate 10/26/23 19:24 Nasal Cannula 4 10/26/23 18:06 Nasal Cannula 4 10/26/23 16:35 Nasal Cannula 4 10/26/23 16:22 10/26/23 16:01 Nasal Cannula 2 PG Care Time/CCT Total # of Minutes Spent Total Time Spent with Patient: Total time spent is greater than 50% in coordination of care (as documented) at patient's floor/unit and/or counseling patient: Coding Level of Care Code 24086 IN/OBS CONSULT LVL 5,80M Diagnoses Vomiting R11.2 Nausea presence: with nausea Vomiting type: unspecified (1) Vomiting Nausea presence: with nausea Vomiting type: unspecified Qualified Code(s): R11.2 - Nausea with vomiting, unspecified
[2023-10-26] MEDS: HEPARIN SOD 5,000 UNIT/0.5 ML VIAL SQ SCH (21:38)
[2023-10-26] MEDS ORDERED: ALBUTEROL HFA 8 GM INHALER INH PRN (22:24)
[2023-10-26] MEDS: UMECLIDINIUM BROMIDE 62.5MCG/BLISTER 7 PUFFS/INHALER INH SCH (23:33)
[2023-10-26] MEDS: rOPINIRole HCL 1 MG TABLET PO SCH (23:33)
[2023-10-26] MEDS: METOPROLOL TARTRATE 1 MG/ML VIAL IV SCH (23:34)
[2023-10-26] MEDS: PIPERACILLIN/TAZOBACTAM 4.5 GM in DEXTROSE 5% MINI-B 100 ML IV SCH (23:38)
[2023-10-26] MEDS: ALBUT/IPRATROP 3MG/0.5MG NEB 3 ML VIAL INH PRN (23:45)
--- NOTE | 2023-10-27 05:27 | Surgery Progress Note ---
Date of Service October 27, 2023 Assessment & Plan (1) Vomiting: Plan: The patient has been admitted on the hospitalist service. From surgery perspective we recommend continuing care as follows: The patient CT scan was reviewed and although there is some distention of the stomach and some dilated loops of small bowel does not have the typical appearance of a small bowel obstruction. Is possible patient may be suffering from a gastroenteritis. As noted, the patient is passing large amounts of flatus. Patient is currently n.p.o.; as the patient continues to pass flatus and has a benign abdominal exam consideration may be given to trialing him on clear l iquids Continue IV fluids for hydration until oral intake is advanced and noted to be adequate Provide antiemetics as needed Check a.m. labs when available Additional recommendations be forthcoming based on his clinical course as it unfolds Admission and Anticipated Discharge Date Admission Date: October 26, 2023 Supervising Physician Co-Signing Physician Notes I personally saw and evaluated the patient with Balta Coburn PA-C and agree with the assessment and plan. 62-year-old male with nausea and vomiting, CT with a distended stomach but no overt signs of bowel obstruction He has no abdominal pain or distention this morning and is hungry Will start advancing diet as I do not think he truly had an intestinal obstruction Surgery will sign off at this time please call with any questions or concerns Subjective Patient is currently resting comfortably in bed. He denies any abdominal pain. Since admission to the hospital he has not had any further nausea or vomiting. He notes that he continues to pass large amount of flatus. He has not had a bowel movement since admission. Physical Exam Gastrointestinal (Abdomen): Abdomen is soft and nondistended. There is no tympany to percussion or rigidity. There is no pain with palpation. There is no rebound tenderness or guarding. Results & Data Vital Signs (Past 12 Hours) Vital Signs Temp Pulse Pulse Pulse Resp BP BP 10/27/23 04:02 10/27/23 03:23 36.5 C 68 18 135/86 10/26/23 23:45 75 18 10/26/23 23:34 69 128/84 10/26/23 23:20 84 10/26/23 23:12 36.3 C L 69 18 128/84 10/26/23 21:10 73 19 121/92 10/26/23 20:20 71 10/26/23 19:24 71 18 107/77 10/26/23 18:06 78 18 121/90 Pulse Ox O2 Del Method O2 Flow Rate 10/27/23 04:02 Nasal Cannula 2 10/27/23 03:23 93 BiPAP 10/26/23 23:45 97 BiPAP 2 10/26/23 23:34 10/26/23 23:20 10/26/23 23:12 95 Nasal Cannula 2 10/26/23 21:10 95 Nasal Cannula 3 10/26/23 20:20 10/26/23 19:24 92 Nasal Cannula 4 10/26/23 18:06 96 Nasal Cannula 4 PG Care Time/CCT Total # of Minutes Spent Total Time Spent with Patient: Total time spent is greater than 50% in coordination of care (as documented) at patient's floor/unit and/or counseling patient: Coding Level of Care Code 33709 SUB INP/OBS CARE 125MIN Diagnoses Vomiting R11.2 Nausea presence: with nausea Vomiting type: unspecified (1) Vomiting Nausea presence: with nausea Vomiting type: unspecified Qualified Code(s): R11.2 - Nausea with vomiting, unspecified
[2023-10-27 08:13] LABS: Basophils # (auto) 0.03 K/uL (0.00-0.20); Basophils % (auto) 0.3 %; Eosinophils # (auto) 0.03 K/uL (0.00-0.50); Eosinophils % (auto) 0.3 %; Hematocrit (blood only) 48.8 % (42.0-52.0); Immature Granulocytes # (auto) 0.08 K/uL (0.01-0.20); Immature Granulocytes % (auto) 0.7 %; Lymphocytes # (auto) 2.23 K/uL (1.20-3.40); Lymphocytes % (auto) 18.9 %; Mean Corpuscular Hemoglobin 29.4 pg (25.0-34.0); Mean Corpuscular Hgb Conc 32.8 g/dL (32.0-36.0); Mean Corpuscular Volume 89.5 fL (80.0-100.0); Mean Platelet Volume 9.5 fL (9.4-12.4); Monocytes # (auto) 1.44 K/uL (0.11-0.59); Monocytes % (auto) 12.2 %; Neutrophils # (auto) 8.02 K/uL (1.40-6.50); Neutrophils % (auto) 67.6 %; Platelet Count 295 K/uL (130-400); RDW Coefficient of Variation 12.9 % (11.5-14.5); RDW Standard Deviation 41.9 fL (36.4-46.3); Red Blood Count 5.45 M/uL (4.70-6.10); White Blood Count 11.83 K/ul (4.8-10.8)
[2023-10-27 08:34] LABS: BUN Creatinine Ratio 22.1 (10-20); Calcium 8.1 mg/dl (8.6-10.3); Creatinine Clr Calc Pharmacy 75.9 ml/min; Est GFR (African American) 73.7 ml/min; Est GFR (Non-African American) 63.6 ml/min; Phosphorus 3.5 mg/dl (2.5-4.9); Potassium 3.4 mmol/L (3.5-5.1)
[2023-10-27] MEDS: predniSONE 10 MG TABLET PO SCH (08:35)
[2023-10-27] MEDS: buPROPion XL 300 MG TABCR PO SCH (08:35)
[2023-10-27] MEDS: METOPROLOL SUCC 25MG EXT REL TAB PO SCH (08:35)
[2023-10-27] MEDS: DULoxetine HCL 60 MG CAP PO SCH (08:35)
[2023-10-27] MEDS: ROSUVASTATIN CALCIUM 20 MG TAB PO SCH (08:36)
[2023-10-27] MEDS: FLUTICASONE/VILANTEROL 200/25MCG 14 PUFFS/INHALER INH SCH (08:36)
[2023-10-27 09:18] LABS: Troponin I High Sensitivity 37.1 pg/ml (0-20)
--- NOTE | 2023-10-27 11:06 | Hospitalist Progress Note ---
Date of Service October 27, 2023 Assessment & Plan (1) SBO (small bowel obstruction): Plan: Presented with abdominal distention nausea vomiting and constipation Suspected small bowel obstruction Obstipation ---CT ABD:No acute abnormalities and in particular no evidence of bowel obstruction. Continue gentle IV fluids Full liquid diet for today Appreciate surgery input Will obtain stool studies if patient develops diarrhea Leukocytosis No clear source of infection Empirically on Zosyn Will likely discontinue antibiotics tomorrow if remains afebrile (2) Acute hyponatremia: Plan: Acute on chronic hyponatremia Likely due to dehydration, Lasix use Sodium improved to 134 today Monitor (3) COPD (chronic obstructive pulmonary disease): Plan: H/O Significant COPD On chronic azithromycin, prednisone Follows with pulmonology as outpatient Continue home inhalers Hypokalemia Replete electrolytes as needed Monitor Acute kidney injury Creatinine improved to 1.2 today Gentle IV fluids Monitor renal function Avoid nephrotoxic agents as able (4) Acute on chronic respiratory failure with hypoxia and hypercapnia: Plan: H/O chronic respiratory failure Chronic oxygen dependency No wheezing on exam today Continue home medications (5) Systolic congestive heart failure with reduced left ventricular function, NYHA class 2: Plan: No signs of decompensation currently Mildly dehydrated on presentation Diuretics for now Monitor volume status while on IV fluids Resume home diuretics as able Elevated troponin Likely demand Ischemia EKG showed no acute changes Troponin trending down Patient denies chest pain Will obtain resting echo (6) Duodenal ulcer: Plan: Continue Protonix Other significant medical conditions are as below Sleep apnea on nocturnal trilogy History of colon resection in 2006 secondary to recurrent diverticulitis History of asthma and allergy and has been getting immunotherapy as an outpatient Hyperlipidemia on Crestor DVT Px: Heparin SQ Code Status Full Code Admission and Anticipated Discharge Date Admission Date: October 26, 2023 Subjective Patient is seen and examined at bedside Nausea, vomiting, abdominal pain resolved Less abdominal distention today + Flatus, no bowel movement today Denies any chest pain, dyspnea, dizziness No other complaints Review of Systems Review of Systems: All systems reviewed & are unremarkable except as noted in Subjective Physical Exam Physical Exam: Physical Exam: Vitals signs as noted above General Appearance:Moderately built and nourished, no apparent distress Head: normocephalic, Atraumatic Eyes: normal inspection, EOMI Neck: supple, Trachea midline Respiratory/Chest: Normal breath sounds, CTA, No accessory muscle use Cardiovascular: S1, S2, No murmur Abdomen/GI:Soft, Non tender, decreased Bowel sounds, no guarding/rigidity Extremities/Musculoskeletal:normal inspection, no edema Neurologic/Psych:AAOX3, grossly no focal neurological deficits Skin: normal color, warm Results & Data Results & Data Vital Signs (Past 12 Hours) Vital Signs Temp Pulse Pulse Pulse Resp BP BP 10/27/23 08:35 10/27/23 07:59 71 118/81 10/27/23 07:47 36.7 C 71 18 118/81 10/27/23 07:40 73 10/27/23 07:06 78 16 10/27/23 06:20 82 151/95 H 10/27/23 04:02 10/27/23 03:23 36.5 C 68 18 135/86 10/26/23 23:45 75 18 10/26/23 23:34 69 128/84 10/26/23 23:20 84 10/26/23 23:12 36.3 C L 69 18 128/84 Pulse Ox O2 Del Method O2 Flow Rate 10/27/23 08:35 Nasal Cannula 2 10/27/23 07:59 10/27/23 07:47 96 Nasal Cannula 2 10/27/23 07:40 10/27/23 07:06 96 BiPAP 2 10/27/23 06:20 10/27/23 04:02 Nasal Cannula 2 10/27/23 03:23 93 BiPAP 10/26/23 23:45 97 BiPAP 2 10/26/23 23:34 10/26/23 23:20 10/26/23 23:12 95 Nasal Cannula 2 Laboratory Results Short CBC 10/26/23 10/27/23 Range/Units 16:20 07:30 WBC 13.58 H 11.83 H (4.8-10.8) K/ul Hgb 16.7 16.0 (14.0-18.0) g/dl Hct 50.3 48.8 (42.0-52.0) % Plt Count 291 295 (130-400) K/uL BMP 10/26/23 10/27/23 16:20 07:30 Sodium 131 L 134 L Potassium 3.8 3.4 L Chloride 83 L 92 L Carbon Dioxide 38 H 36 H BUN 40 H 27 H Creatinine 1.55 H 1.22 D Glucose 155 H 106 H Calcium 9.4 8.1 L Liver Function 10/26/23 Range/Units 16:20 Total Bilirubin 1.0 (0.2-1.0) mg/dl AST 20 (13-39) U/L ALT 12 (7-52) U/L Alkaline Phosphatase 73 (34-104) U/L Albumin 3.8 (3.4-5.0) gm/dl Urine 10/26/23 Range/Units 16:59 Urine Color Yellow Urine Appearance Clear (Clear) Urine pH 5.5 (4.5-7.5) Ur Specific [place] 1.017 (1.000-1.030) Urine Protein Negative (Negative) Urine Glucose (UA) Negative (Negative)
[2023-10-27] MEDS: POTASSIUM CHLORIDE / WTR 10 MEQ/100 ML PLCT IV SCH (11:20)
--- NOTE | 2023-10-28 05:58 | Electrocardiogram Report ---
Test Reason : Blood Pressure : / mmHG Vent. Rate : 077 BPM Atrial Rate : 077 BPM P-R Int : 162 ms QRS Dur : 108 ms QT Int : 418 ms P-R-T Axes : 060 054 066 degrees QTc Int : 473 ms Normal sinus rhythm with sinus arrhythmia Incomplete right bundle branch block Anterior infarct , age undetermined Abnormal ECG When compared with ECG of 30-JAN-2020 14:09, Previous ECG has undetermined rhythm, needs review Incomplete right bundle branch block is now Present Anterior infarct is now Present ST no longer depressed in Inferior leads ST no longer depressed in Anterior leads Confirmed by Carlos Mcgee ([id number]) on 10/28/2023 5:58:05 AM Referred By: REFERRED SELF Confirmed By:Carlos Mcgee
[2023-10-28] MEDS: AZITHROMYCIN 250 MG TAB PO SCH (08:32)
[2023-10-28 10:13] LABS: Hematocrit (blood only) 45.4 % (42.0-52.0); Hemoglobin 14.8 g/dl (14.0-18.0); Mean Corpuscular Hemoglobin 29.2 pg (25.0-34.0); Mean Corpuscular Hgb Conc 32.6 g/dL (32.0-36.0); Mean Corpuscular Volume 89.5 fL (80.0-100.0); Mean Platelet Volume 9.3 fL (9.4-12.4); Platelet Count 267 K/uL (130-400); RDW Coefficient of Variation 12.9 % (11.5-14.5); RDW Standard Deviation 41.9 fL (36.4-46.3); Red Blood Count 5.07 M/uL (4.70-6.10); White Blood Count 10.98 K/ul (4.8-10.8)
[2023-10-28 10:28] LABS: BUN Creatinine Ratio 20.2 (10-20); Calcium 8.2 mg/dl (8.6-10.3); Creatinine Clr Calc Pharmacy 93.6 ml/min; Est GFR (African American) 94.9 ml/min; Est GFR (Non-African American) 81.9 ml/min; Magnesium 2.2 mg/dl (1.7-2.4); Potassium 3.7 mmol/L (3.5-5.1)
--- NOTE | 2023-10-28 13:17 | Discharge Summary ---
Date of Service October 28, 2023 Admission HPI Per Admitting Provider He is a 62-year-old male with significant past medical history of COPD with chronic respiratory failure on oxygen, on nocturnal trilogy at home, history of NSTEMI, asthma/allergy, systolic congestive heart failure with reduced EF ,history of duodenal ulcer and also history of bowel resection in 2006 for recurrent diverticulitis apparently has been complaining of abdominal discomfort with distention associated with nausea vomiting and constipation for the last 4 days. The condition got worse today that he is here in the emergency room and also complains to have increasing shortness of breath and he has cough with whitish phlegm. Denies any chest pain and/or palpitation. He is not constipated usually but for the last 4 days has been passing minimal amount of pellet-like stool. His last bowel movement was yesterday morning. Denies any fever and or chills. Denies any leg swelling and does not have any numbness or tingling involving any of the extremities. Initially was thought to have intestinal obstruction given the symptoms but the CAT scan came back negative for any SBO. He will be admitted to medical telemetry unit for continuation of care. Admission Exam Per Admitting Provider Physical Exam: Lying in bed with acute distress due to shortness of breath and cough Constitutional: well developed, well nourished, + ill appearing and + obese Eyes: PERRL, conjunctivae normal, anicteric sclerae ENMT: external ear and nose normal, oropharynx normal Neck: trachea midline, no thyromegaly Respiratory: + respiratory distress (Moderate respira tory distress at rest) Auscultation: + diminished lung sounds and + crackles (Crackles bibasilarly more on the right than the left) Cardiovascular: Rate/Rhythm: regular rate and regular rhythm; not tachycardic Heart Sounds: normal S1 and normal S2; no murmur Extremities: no edema Gastrointestinal (Abdomen): Inspection/Auscultation: + abdomen distended (Minimally distended but soft and nontender) and normal bowel sounds (Decreased) Percussion/Palpation: + abdomen tender (Minimal tenderness) and abdomen soft; no guarding and abdomen not rigid Musculoskeletal: No acute arthritis involving any of the joint Neurologic: normal touch/pain/proprioception and moves all extremities; no focal motor deficits Lymphatic: no cervical or axillary lymphadenopathy Principal Diagnosis Acute gastroenteritis Discharge Exam Constitutional: WD/WN, vitals as above, NAD, sitting up in bed, pleasant, conversing easily Respiratory: normal respiratory effort, lungs clear to auscultation, no wheeze, rales, rhonchi. Normal insp/exp effort, no accessory muscle use Cardiovascular: RRR, no murmur, no edema Vessels: no JVD or carotid bruit Chest: normal inspection of chest Abdomen: normal bowel sounds, soft, nontender, no hepatosplenomegaly Musculoskeletal: no cyanosis or clubbing, extremities motor strength 5/5 Skin: no rashes, warm and dry normal turgor Neurologic: PERRL, EOMI, accommodation nl, no face palsy, no dysarthria CN's II- XI intact bilaterally and moves all extremities Psychiatric: A+Ox3, euthymic affect Discharge Data Allergies Allergy/AdvReac Type Severity Reaction Status Date / Time No Known Drug Allergies Allergy Unknown Verified 10/26/23 17:53 Consultations 10/26/23 17:25 ED Decision to Admit Stat 10/26/23 18:09 Consult General Surgery Stat Ordered Studies 10/26/23 15:58 CT abd pelvis IV con only Stat Hospital Course (1) Acute gastroenteritis: (2) Acute hyponatremia: (3) NOLBERTO (acute kidney injury): Plan Presented with abdominal distention nausea vomiting and constipation CT abdomen and pelvis done on admission did not show any evidence of bowel obstruction or acute intra-abdominal finding. Patient was started on clear liquid diet, IV hydration and IV antibiotic for suspicion of possible intra-abdominal or pulmonary infection. Surgery was consulted for comanagement. No evidence of small bowel obstruction as per surgery. Patient's diet was gradually advanced. Patient was able to tolerate full liquid diet and was having regular bowel movement. He reported improvement in nausea, vomiting and abdominal discomfort. Patient's hyponatremia and NOLBERTO also resolved with IV hydration. He was discharged home with instructions to follow-up with his primary care doctor. Please note the above document was generated using voice recognition software. It may contain grammatical, syntax or spelling errors. Any formal questions or concerns about the content, text or information contained within the body of this dictation should be directly addressed to the provider for clarification Total Time Total Time Spent Total Time Spent (In Minutes): 35 Discharge Plan Discharge Items Patient Disposition: Home - Self-Care Reason For Visit: N/V/D WITH ABD PAIN, SBO Discharge Diagnosis: Acute gastroenteritis Activity: Resume your previous activity Non-emergency contact: Primary Care Provider Call non-emergency contact if: you have any medication questions and your symptoms worsen Follow-up/Referrals: Izabela Gonzalez DO [Primary Care Provider] - (Date & Time 10/30/2023 6:20 PM Provider Izabela Gonzalez DO Department [facility] ) Diet: Regular Addtl Attending Provider Instructions: You were admitted to the hospital due to abdominal pain, nausea and vomiting. The likely cause is acute gastroenteritis. You are treated with IV fluids during the hospitalization. An appointment with your primary care doctor will be set up for you for follow- up. No changes have been made to your medication regimen Pending Studies at Discharge: No Stand-Alone Forms: My [employer], Smoking Cessation Medications and DC Order Prescriptions: Continued (DME) Portable Oxygen Misc See Rx Instructions .Route Qty: 1 0RF Rx Instructions: Portable oxygen concentrator 2L/min via NC with exertion LON99 Advair HFA 230-21 mcg/actuation HFA aerosol inhaler 2 puff INHALATION Q12 Qty: 3 3RF Hold Instructions: med change Rx Instructions: (3) MONTH SUPPLY albuterol sulfate [Ventolin HFA] 90 mcg/actuation HFA aerosol inhaler 2 puff INHALATION Q4 PRN (Reason: COPD) Qty: 3 3RF Rx Instructions: 3 MONTH SUPPLY -Needs to be Ventolin Brand only for insurance furosemide 20 mg tablet 40 mg PO QAM ipratropium-albuterol 0.5 mg-3 mg(2.5 mg base)/3 mL solution for nebulization 3 ml INHALATION Q6H PRN (Reason: shortness of breath or wheezing) rosuvastatin 20 mg tablet 20 mg PO QAM (DME) Non invasive ventilator DME Misc See Rx Instructions .ROUTE .MEDSUPPLY Qty: 1 0RF Rx Instructions: NON INVASIVE VENTILATOR. CARE PLUS O2 TO ASSESS PATIENT. Tezspire 210 mg/1.91 mL (110 mg/mL) syringe 210 mg subcut .COMPLEX Qty: 1.91 11RF Rx Instructions: Inject 210 mg subcut EVERY 4 WEEKS APPROVED thru pharmacy benefit GOOD 05/12/21-04/21/22 [place]# [id number] Samples for now. Funding is closed azithromycin 250 mg tablet 250 mg PO MOWEFR 30 Days Qty: 12 6RF metoprolol succinate 25 mg Tablet Extended Release 24 Hr 25 mg PO QAM 30 Days Qty: 30 5RF bupropion HCl 300 mg Tablet Extended Release 24 Hr 300 mg PO QAM prednisone 10 mg tablet 10 mg PO DAILY Spiriva Respimat 2.5 mcg/actuation mist 2 puff INHALATION HS duloxetine 60 mg capsule,delayed release(DR/EC) 60 mg PO QAM ropinirole 3 mg tablet 3 mg PO HS Discharge Orders: Discharge Order (Routine); Ordered 10/28/23 Ordered By: Rahul Mina Admission Data Admit Date/Time: 10/26/23 18:05 Attending Provider: Rahul Mina Admit Provider: Yoko Tay Primary Care Provider: Izabela Gonzalez Other Providers: Yoko Tay; Michael Villalobos Other Interventions: Discharge Summary Assessment (RN) Last Done: 10/28/23 11:57
== END 2023-10-28 12:35 | disposition home or self-care (01) | DRG 391 ==
LOC: ED 15:53 → 2N 18:05 → SUATTDRO 18:05 → 2N 22:41

== ENCOUNTER 2024-12-15 06:11 | Inpatient (IN) ==
--- NOTE | 2024-12-08 22:51 | Anesthesiology Consultation ---
Date of Service December 08, 2024 Assessment & Plan (1) Encounter for pre-operative examination: - Infectious disease screening: Per assessment on 12/08/24- No known recent infectious disease contacts or current infectious disease symptoms. - Pulmonary visit (11/10/24): "Impression: 63-year-old male with chronic hypoxemic and hypercarbic respiratory failure due to obstructive lung disease. He is doing well on Advair, Spiriva, Daliresp, azithromycin, and chronic prednisone therapy. He had a lung cancer screening exam performed on 08/17/24 which demonstrated a new 1.5cm nodule present within the right upper lobe. Last comparison CT scan in our system was from 2017 where the nodule was not identified. PET scan on 09/10/2024 showed hypermetabolic activity concerning for malignancy. Recommendations: 1. COPD: Continue Advair, Spiriva, Daliresp, chronic azithromycin and as needed albuterol. Continue prednisone at 7.5 mg a day. Will reorder Yuperli. He is not interested in pursuing lung transplant and is not a candidate for LV RS currently. 3. Hypercarbic respiratory failure: Continue nocturnal trilogy. This is medically necessary. The patient is compliant with the device and is achieving a clinical benefit from it. We will continue to follow with his [employer] for placement tubing filters and supplies.. Continue supplemental oxygen titrated to keep saturations at or above 88%.. Pulmonary nodule: Discussed extensively with the patient the PET scan findings showing hypermetabolic activity concerning for malignancy in the RUL. The patient is at high risk for surgical complications given his comorbid pulmonary conditions. Patient is believe to be high risk for pneumothorax rate with a biopsy on the order of 10 to 15%. The risks and and options were discussed with patient who would like to pursue lung biopsy for definitive diagnosis. Will staff with Dr. Metzger to set patietn up fro biopsy." - Preop testing: No recent/preop testing received. Will order CBC/BMP/EKG for DOS. - Acceptable risk for given surgery pending preop testing DOS. Chart Review Chart Review: Patient NOT seen in Pre Admission Testing History Surgery Operation Date: 12/15/24 07:30 Proposed Procedures p Robotic Navigational Bronchoscopy, - Apollo Metzger MD s Endobronchial Ultrasound - Apollo Metzger MD Height/Weight Height: 5 ft 11 in Weight: 108.862 kg Allergies Allergy/AdvReac Type Severity Reaction Status Date / Time No Known Drug Allergies Allergy Unknown Verified 12/08/24 13:14 Medications Home Medications Medication Instructions Recorded Confirmed Last Taken metoprolol succinate 25 mg 25 mg PO QAM 30 days #30 tabs 08/05/19 12/08/24 10/22/23 tablet,extended release 24 hr Non invasive ventilator DME #1 ea 11/04/19 10/22/24 Unknown rosuvastatin 20 mg tablet 20 mg PO QAM 11/04/19 12/08/24 10/22/23 furosemide 20 mg tablet 40 mg PO QAM 03/08/20 12/08/24 10/22/23 bupropion HCl 300 mg 24 hr tablet, 300 mg PO QAM 08/02/20 12/08/24 10/22/23 extended release tezepelumab-ekko 210 mg/1.91 mL 210 mg (1.91 mL) subcut .COMPLEX 09/20/21 12/08/24 Unknown (110 mg/mL) subcutaneous syringe #1.91 mL (Tezspire) Portable Oxygen #1 ea 11/05/22 10/22/24 Unknown duloxetine 60 mg capsule,delayed 60 mg PO QAM 10/26/23 12/08/24 10/22/23 release ropinirole 3 mg tablet 3 mg PO HS 10/26/23 12/08/24 10/22/23 prednisone 2.5 mg tablet 7.5 mg PO DAILY 09/03/24 12/08/24 Unknown ipratropium 0.5 mg-albuterol 3 mg 3 ml inhalation Q6H PRN shortness 09/16/24 12/08/24 Unknown (2.5 mg base)/3 mL nebulization of breath or wheezing #360 mL soln azithromycin 250 mg tablet 250 mg PO MOWEFR 30 days #12 tabs 09/21/24 12/08/24 Unknown Daliresp 500 mcg tablet 500 mcg PO DAILY #30 tabs 10/21/24 12/08/24 Unknown (roflumilast) tiotropium bromide 2.5 2 puff inhalation DAILY #4 grams 11/05/24 12/08/24 Unknown mcg/actuation mist for inhalation (Spiriva Respimat) ensifentrine 3 mg/2.5 mL 3 mg (2.5 mL) inhalation BID #150 11/10/24 11/10/24 Unknown suspension for nebulization mL (Ohtuvayre) albuterol sulfate 90 mcg/actuation 2 puff inhalation Q4H PRN COPD 12/08/24 12/08/24 Unknown aerosol inhaler (Ventolin HFA) fluticasone propionate 230 2 puff inhalation BID 12/08/24 12/08/24 Unknown mcg-salmeterol 21 mcg/actuation HFA inhaler (Advair HFA) Past Medical History Medical History Anxiety and depression Arthritis Chronic back pain Chronic respiratory failure with hypoxia and hypercapnia Diverticular disease Duodenal ulcer Per records GERD (gastroesophageal reflux disease) History of asthma History of COPD History of GI bleed Hx of congestive heart failure Hyperlipidemia Hypertension Myocardial Infarction 07/2019 On home oxygen therapy 2L NC continuous Pulmonary nodule Restless leg syndrome Sleep apnea "uses a ventilator device" with his continous oxygen Past Family History Family History Other Hypertension No family history of adverse response to anesthesia Past Surgical History Surgical History History of bowel resection R/t diverticulitis History of cardiac cath 2019- no stents History of colonoscopy (2017) History of esophagogastroduodenoscopy (EGD) History of herniorrhaphy x5 [place] teeth removed Social History Smoking Status: Former smoker tobacco type: cigarettes Smoking cigarettes per day: 1-3ppd Do You Dip or Chew Tobacco: No (quit years ago) Smoking End Date: 2018 Hx Alcohol Use: Yes (none since 2003) Hx Substance Use: Yes substance use type: former substance user and marijuana Testing Echocardiogram Date: 10/27/23 EF 55-60%. Limited assessment of other cardiac chambers- but no marked dilatations appreciated; no significant valvular pathology appreciated. Mild cLVH. Cardiac Catheterization Date: 08/04/19 Summary: Except for some minor luminal irregularities and evidence of calcium at the proximal LAD the patient's coronary anatomy is widely patent. Recommendations are for medical management of the patient's minor coronary artery disease. Other Testing Chest CT Date: 11/23/24 IMPRESSION: 1. Severe emphysema without acute process of the chest. 2. Irregular nodule of the right upper lobe has slightly decreased in size now measuring 1.0 cm, previously 1.3 cm. Additional 3-6 month follow-up chest CT recommended. 3. 3 mm subpleural solid nodule of the right upper lobe, previously 5 mm. 4. No new or enlarging pulmonary nodules or lymphadenopathy.
[2024-12-15 06:39] LABS: Hematocrit (blood only) 44.2 % (42.0-52.0); Hemoglobin 14.1 g/dl (14.0-18.0); Immature Granulocytes # (auto) 0.02 K/uL (0.01-0.20); Immature Granulocytes % (auto) 0.3 %; Mean Corpuscular Hemoglobin 28.7 pg (25.0-34.0); Mean Corpuscular Volume 90.0 fL (80.0-100.0); Platelet Count 200 K/uL (130-400); RDW Standard Deviation 43.4 fL (36.4-46.3); Red Blood Count 4.91 M/uL (4.70-6.10); White Blood Count 6.61 K/ul (4.8-10.8)
[2024-12-15] MEDS: LACTATED RINGER'S 1,000 ML IV SCH (06:47)
--- NOTE | 2024-12-15 06:55 | History & Physical Report ---
Date of Service December 15, 2024 Assessment & Plan (1) Pulmonary nodule: (2) Chronic respiratory failure with hypoxia and hypercapnia: (3) COPD (chronic obstructive pulmonary disease): Plan Impression: 63-year-old male with chronic hypoxemic and hypercarbic respiratory failure due to obstructive lung disease. He was found to have a right upper lobe pulmonary nodule which demonstrated significant PET avidity suspicious for malignancy which failed to resolve on follow-up imaging and he presents today for navigational bronchoscopy with biopsy. He is experiencing significant wheezing this morning. Recommendations: 1. COPD: Will have the patient receive stat DuoNeb treatment. Continue other inhalers. May require an increase in his prednisone dose 3. Hypercarbic respiratory failure: Will need to observe postoperatively. May require noninvasive positive pressure ventilation 4. Pulmonary nodule: High risk for malignancy. If his respiratory status can be stabilized, plan on proceeding with bronchoscopy with biopsy. The above recommendations and plan were extensively discussed with the patient. Questions were answered to the best my ability. He expressed understanding and is in agreement with the plan as outlined History of Present Illness Primary Care Provider: Izabela Gonzalez DO Patient is a 63-year-old male with a history of hypoxemic hypercarbic respiratory failure due to COPD and obesity who was found to have a pulmonary nodule on lung cancer screening. This nodule unfortunately demonstrated significant PET avidity. Follow-up CT scan failed to demonstrate resolution of the nodule. Options were discussed with the patient to include surveillance versus biopsy. After careful consideration and discussion of risks and benefits including bleeding, respiratory failure, pneumothorax, the patient has elected to undergo robotic navigational bronchoscopy with endobronchial biopsy. Today the patient reports that he is having increasing shortness of breath and wheezing. He states this is pretty typical for him on the mornings. He has a hard time getting going. He is wheezing. He has not been coughing or expec torating phlegm. No fevers chills or night sweats. Allergies Allergy/AdvReac Type Severity Reaction Status Date / Time No Known Drug Allergies Allergy Unknown Verified 12/15/24 06:16 Home Medications Medication Instructions Recorded Confirmed Type metoprolol succinate 25 mg 25 mg PO QAM 30 days #30 tabs 08/05/19 12/15/24 Rx tablet,extended release 24 hr Non invasive ventilator DME #1 ea 11/04/19 10/22/24 Rx rosuvastatin 20 mg tablet 20 mg PO QAM 11/04/19 12/15/24 History furosemide 20 mg tablet 40 mg PO QAM 03/08/20 12/15/24 History bupropion HCl 300 mg 24 hr tablet, 300 mg PO QAM 08/02/20 12/15/24 History extended release tezepelumab-ekko 210 mg/1.91 mL 210 mg (1.91 mL) subcut .COMPLEX 09/20/21 12/15/24 Rx (110 mg/mL) subcutaneous syringe #1.91 mL (Tezspire) Portable Oxygen #1 ea 11/05/22 10/22/24 Rx duloxetine 60 mg capsule,delayed 60 mg PO QAM 10/26/23 12/15/24 History release ropinirole 3 mg tablet 3 mg PO HS 10/26/23 12/15/24 History prednisone 2.5 mg tablet 7.5 mg PO DAILY 09/03/24 12/15/24 History ipratropium 0.5 mg-albuterol 3 mg 3 ml inhalation Q6H PRN shortness 09/16/24 12/15/24 Rx (2.5 mg base)/3 mL nebulization of breath or wheezing #360 mL soln azithromycin 250 mg tablet 250 mg PO MOWEFR 30 days #12 tabs 09/21/24 12/15/24 Rx Daliresp 500 mcg tablet 500 mcg PO DAILY #30 tabs 10/21/24 12/15/24 Rx (roflumilast) tiotropium bromide 2.5 2 puff inhalation DAILY #4 grams 11/05/24 12/15/24 Rx mcg/actuation mist for inhalation (Spiriva Respimat) ensifentrine 3 mg/2.5 mL 3 mg (2.5 mL) inhalation BID #150 11/10/24 12/15/24 Rx suspension for nebulization mL (Ohtuvayre) albuterol sulfate 90 mcg/actuation 2 puff inhalation Q4H PRN COPD 12/08/24 12/15/24 History aerosol inhaler (Ventolin HFA) fluticasone propionate 230 2 puff inhalation BID 12/08/24 12/15/24 History mcg-salmeterol 21 mcg/actuation HFA inhaler (Advair HFA) Past Med/Surg History Problem List Pulmonary nodule Elevated troponin I level (Acute) SBO (small bowel obstruction) (Acute) Hypovolemic shock Hypotension High serum lactate History of tobacco use disorder Stage 4 very severe COPD by GOLD classification Chronic respiratory failure with hypoxia and hypercapnia Apical ballooning syndrome Systolic congestive heart failure with reduced left ventricular function, NYHA class 2 Ischemic heart disease Elevated lactic acid level (Acute) On home oxygen therapy (Acute) Non-ST elevated myocardial infarction (non-STEMI) (Acute) Nicotine use disorder Encounter for pre-operative examination Sleep apnea Asthma (Chronic) COPD (chronic obstructive pulmonary disease) (Chronic) Emphysema of lung (Chronic) Medical History Anxiety and depression Arthritis Chronic back pain Chronic respiratory failure with hypoxia and hypercapnia Diverticular disease Duodenal ulcer Per records GERD (gastroesophageal reflux disease) History of asthma History of COPD History of GI bleed Hx of congestive heart failure Hyperlipidemia Hypertension Myocardial Infarction 07/2019 On home oxygen therapy 2L NC continuous Pulmonary nodule Restless leg syndrome Sleep apnea "uses a ventilator device" with his continous oxygen Surgical History History of bowel resection R/t diverticulitis History of cardiac cath 2019- no stents History of colonoscopy (2017) History of esophagogastroduodenoscopy (EGD) History of herniorrhaphy x5 [place] teeth removed Family History Other Hypertension No family history of adverse response to anesthesia Social History Smoking Status: Former smoker Tobacco Type: Cigarettes Age Started Using Tobacco: 14; Age Quit Using Tobacco: 59; Cigarettes Per Day: 1-3ppd; Smoking End Date: 2018; Second Hand Exposure: No; Do You Dip or Chew Tobacco: No (quit years ago); Tobacco Cessation Education Requested by Patient: No Hx Alcohol Use: Yes (none since 2003) Hx Substance Use: Yes Preferred Language: Indian Communication Ability: Effective Communication Ability Comment: Sedated and intubated Phytopathologist Required: No Beliefs That Will Affect Care: None marital status: Current Living Situation: Spouse Current Living Situation Comment: [facility] Other Information That Helps Us Care for You: No Feels Safe at Home: Yes Safety Concerns: Feels Safe At This Time Assistive Devices: Glasses, Oxygen - Continuous and Other Assistive Devices Comment: "ventilator" for sleep apnea Review of Systems All systems reviewed & are unremarkable except as noted in Subjective Physical Exam Constitutional: WD/WN, vitals as above Neck: trachea midline Respiratory: + respiratory distress, + labored breath ing and + tachypneic; no cough Auscultation: + diminished lung sounds and + wheezes; no crackles Cardiovascular: RRR, no murmur, no edema Musculoskeletal: Gait: normal gait Skin: no rashes and no lesions Psychiatric: A+Ox3, euthymic affect Results & Data Vital Signs (Past 12 Hours) Vital Signs Temp Pulse Resp BP Pulse Ox O2 Del Method O2 Flow Rate 12/15/24 06:32 Nasal Cannula 6 12/15/24 06:24 36.4 C L 72 32 H 154/97 H 96 Nasal Cannula 6 Diagnostic Findings PET/CT 09/10/24 CLINICAL HISTORY: pulm nodule TECHNIQUE: A PET/CT was performed from the skull base through the upper thighs following intravenous injection of 11.5 mCi of F 18 FDG IV. The injection was performed at 0 816 and imaging began at 0 900. Patient's blood sugar at time of injection was 115 mg/dl. Unenhanced CT was performed for attenuation correction purposes and anatomic localization. COMPARISON STUDY: Chest CT of 08/17/2024 FINDINGS: There is physiologic uptake. Head and neck: There is a focus of increased uptake at the posterior nasopharynx soft tissue just right of midline series 4 image 21 measuring 2.4 cm. This likely represents adenoidal tissue and does not appear significantly asymmetric compared to the left. It has maximum SUV of 6.8. No other abnormal uptake seen. Chest: The 1.3 cm pulmonary nodule anterior right upper lobe series 4 image 84 has maximum SUV of 4.4. The small area of stranding opacity in the lingula is obscured by motion. It has maximum SUV of 1.4, likely not significant. The 5 mm subpleural anterior right upper lobe nodule image 102 shows no significant uptake. Stable emphysema. No new consolidation or pleural effusion. No enlarged adenopathy. Abdomen and Pelvis: There are a few tiny cysts in the liver. Otherwise the liver, gallbladder, spleen, pancreas, and adrenal glands have an unremarkable and IV contrast appearance. Kidneys show no hydronephrosis. There is a tiny hyperdense cyst lateral upper right kidney. There are scattered atherosclerotic calcifications. No abdominal aortic aneurysm. Prostate is mildly enlarged. Urinary bladder is nondistended. There is a small diverticulum posterior right urinary bladder. There is mild sigmoid diverticulosis. No acute diverticulitis. Normal appendix. No bowel inflammation or obstruction. No free fluid or free air. There is mild scarring in the anterior subcutaneous tissues above the umbilicus. No enlarged adenopathy. No abnormal uptake. Musculoskeletal: There are a few small bone islands at the pelvis. No suspicious osseous lesion or abnormal uptake seen. IMPRESSION: 1. The 1.3 cm right upper lobe pulmonary nodule is hypermetabolic suspicious for malignancy. 2. There is increased uptake at the likely adenoidal tissue at the posterior nasopharynx just right of midline without gross mass seen. Differential diagnosis includes infectious/inflammatory uptake and malignancy. Consider direct visualization or imaging follow-up. 3. No other abnormal uptake seen.
[2024-12-15 06:58] LABS: Anion Gap 5.0 (3-11); Blood Urea Nitrogen 13.0 mg/dl (6-23); Calcium 9.2 mg/dl (8.6-10.3); Carbon Dioxide 36.0 mmol/L (21-32); Chloride 103.0 mmol/L (98-107); Creatinine Clr Calc Pharmacy 109.4 ml/min; Glucose 122.0 mg/dl (70-99(Fasting)); Potassium 4.1 mmol/L (3.5-5.1); Sodium 144.0 mmol/L (136-145)
[2024-12-15] MEDS ORDERED: ONDANSETRON INJ 2 MG/ML 2 ML VIAL IV PRN (06:58)
[2024-12-15] MEDS ORDERED: NALOXONE HCL 0.4 MG/1 ML VIAL/CARP IV PRN (06:58)
[2024-12-15] MEDS ORDERED: FLUMAZENIL 0.1 MG/1 ML 10 ML VIAL IV PRN (06:58)
[2024-12-15] MEDS ORDERED: PROMETHAZINE HCL 6.25 MG in SODIUM CHLORIDE 0.9% 50 ML IV PRN (06:58)
[2024-12-15] MEDS ORDERED: ATROPINE SULFATE 0.1 MG/ML 10ML SYR IV PRN (06:58)
[2024-12-15] MEDS: ALBUT/IPRATROP 3MG/0.5MG NEB 3 ML VIAL NEB STA (07:03)
[2024-12-15] MEDS ORDERED: PROPOFOL IV EMULSION 10 MG/ML 20 ML VIAL IV ONE ×2 (07:10→10:24)
[2024-12-15] MEDS ORDERED: MIDAZOLAM HCL 1 MG/ML 2ML VIAL ONE (07:12)
[2024-12-15] MEDS ORDERED: CISATRACURIUM BESYLATE IV SOLN 2 MG/ML 10 ML VIAL IV ONE (07:13)
[2024-12-15] MEDS ORDERED: SUCCINYLCHOLINE CHLORIDE 20 MG/ML 10 ML VIAL IV ONE (07:13)
[2024-12-15] MEDS ORDERED: GLYCOPYRROLATE 0.2 MG/ML VIAL ONE (09:01)
[2024-12-15] MEDS ORDERED: NEOSTIGMINE METHYLSULFATE 1 MG/ML 10ML VIAL ONE (09:01)
[2024-12-15] MEDS ORDERED: PHENYLEPHRINE 100MCG/ML 5ML SYR ONE (09:30)
--- NOTE | 2024-12-15 09:39 | Procedure Note ---
Procedure Note: Bronchoscopy Procedure Procedure: Fiberoptic bronchoscopy Electromagnetic navigational bronchoscopy with fluoroscopic guidance Endobronchial ultrasound evaluation during bronchoscopy Electromagnetic navigational bronchoscopy with transbronchial biopsies under fluoroscopic guidance Electromagnetic navigational bronchoscopy with transbronchial brushings under fluoroscopic guidance Electromagnetic navigational bronchoscopy with fine-needle aspiration under fluoroscopic guidance Placement of fiducial under fluoroscopic guidance Provider: Apollo Metzger MD Consent: Signed by patient and timeout verified prior to procedure. Procedure: Patient was brought to the OR suite. Consent was verified. Appropriate radiographic studies had been reviewed prior to the procedure. General anesthesia was initiated by the anesthesia team and the patient was intubated with an 8.0 endotracheal tube. After initiation of general anesthesia, the fiberoptic scope was advanced through the existing endotracheal tube via the adapter. The tube was sounded. It was withdrawn to approximately 5 or 6 cm above the holly and secured in place. A systematic inspection of the airways was then conducted. The right tracheobronchial tree was normal in anatomic configuration with normal mucosa. Left tracheobronchial tree also demonstrated a normal anatomic configuration with normal mucosa. No endobronchial lesions were identified. Thick clear secretions were identified which were cleared with lavage. The fiberoptic scope was then removed. The robotic adapter was then secured to the endotracheal tube and secured using the flexible arm attached to the bed. The patient had previously been placed on a bed with an electromagnetic navigation field and a tilt table in place. The robot was advanced to the head of the bed and the robotic arm was docked to the endotracheal tube via the robotic adapter. Robot arm was withdrawn in normal fashion and the scope attached with the antibuckling device. The robotic scope was then maneuvered into the endotracheal tube where controller registration took place. Once that was confirmed the scope was advanced to the main holly and verified in good position. Navigational registration was then conducted without difficulty. Once registration was completed, the robotic bronchoscope was used to navigate to the right upper lobe pulmonary nodule. Once the scope was approximately 15 to 20 mm from the lesion, a fluoroscopic tomographic spin was conducted with reconstruction of images. The lesion was able to be verified on the tomogram. It was marked and additional navigation was conducted under direct fluoroscopic guidance with augmented fluoroscopy. Once the scope was appropriately angled towards the lesion, under direct fluoroscopic guidance, a radial ultrasound probe was advanced. An eccentric view was identified corresponding to the augmented fluoroscopy images. The radial probe was removed. A peer-reviewed 21-gauge needle was then advanced under fluoroscopic guidance into the lesion. 2 FNA passes were conducted with tomographic spin confirming tip of the needle within the lesion. A cytology brush was then advanced x 2 under fluoroscopic guidance. Transbronchial biopsies including cryobiopsies were then taken. A total of 8 biopsies were taken with touch preps performed and rapid onsite cytologic evaluation conducted. Rapid onsite cytologic evaluation did not demonstrate significant findings however the [employer] system did show probable lesional material. Given this a fiducial was placed just inferior to the nodule and verified on fluoroscopy. The robotic bronchoscope was withdrawn and the robotic arm detached from the patient. The endobronchial ultrasound was then advanced through the adapter via the existing endotracheal tube. A survey of mediastinal lymph node stations was conducted including the 4R, 4L, 7, 10/11 R, and 10/11 L stations. A few less than 4 mm lymph nodes were identified throughout the mediastinum. These were not pathologically enlarged and biopsies were not taken. The scope was then withdrawn to the tip of the endotracheal tube and hemostasis was confirmed. Scope was removed from the airway. The patient was turned over to anesthesia for extubation and returned to the PACU having tolerated the procedure well without complication. EBL: Less than 5 ml Impression: 1. Normal inspection bronchoscopy. 2. Successful electromagnetic robotic navigation to a 10 mm right upper lobe pulmonary nodule. Status post biopsy/brushing/FNA under fluoroscopic guidance. Await final pathology. 3. Placement of fiducial under fluoroscopic guidance. 4. No suspicious mediastinal lymph nodes identified [facility] [place] Procedure Codes (Charges) Pulmonary/Thoracic Procedure 1: Pulmonary and Thoracic: 34220 Navigational Bronchoscopy Procedure 2: Pulmonary and Thoracic: 14879 Bronchoscopy w/ transbronchial lung bx Procedure 3: Pulmonary and Thoracic: 17740 Dx bronchoscopy/brush Procedure 4: Pulmonary and Thoracic: 23333 Bronchoscopy w/ needle bx Procedure 5: Pulmonary and Thoracic: 90480 Bronchoscopy, w/EBUS add on Procedure 6: Pulmonary and Thoracic: 19646 Placement of a fiducial marker
--- NOTE | 2024-12-15 10:18 | Communication Note ---
Date of Service: December 15, 2024 Called to PACU to evaluate patient postoperatively by the PACU nurse. She reported low oxygen saturations as well as a level of unresponsiveness. Assess ed the patient immediately. He had saturations in the 70% range on a nonrebreather. He was obtunded and diaphoretic. Decision made to reintubate the patient. Please refer to anesthesia's intubation note. Discussed with ICU attending and immediately transferred the patient to the ICU for further care. Patient's was updated. Did review chest x-ray which demonstrated no evidence of pneumothorax on the right. Accompanied the patient to the ICU with ICU nurse practitioner. Signout was performed to the bedside nurse as well as the ICU attending and the ICU critical care MUNIRA. 30 minutes critical care time Coding Level of Care Code 61477 CRITICAL CARE 1ST 30-74M
[2024-12-15] MEDS ORDERED: STAT IV Infusion **Titration per Protocol STA ×2 (10:21→10:23)
--- NOTE | 2024-12-15 10:23 | XRay Report ---
XR chest 1V portable HISTORY: 63 years-old Male Post Bronchoscopy COMPARISON: 03/30/2024 chest radiograph, chest CT 11/23/2024 TECHNIQUE: AP view of the chest FINDINGS: Cardiac silhouette is enlarged. Severe pulmonary emphysema with chronic interstitial coarsening. Pulm onary vascular congestion with trace pleural effusions and linear bibasilar consolidation. Tiny metal lic density focus projects over the perihilar right mid lung possibly a fiducial marker. No pneumotho rax. Pulmonary nodules are better seen on prior chest CT. Bones appear grossly intact. IMPRESSION: 1. No postprocedural pneumothorax. 2. Cardiomegaly with pulmonary vascular congestion and trace pleural effusions. 3. Bibasilar consolidation favors atelectasis. 4. Severe emphysema. ACT 112: Negative or not required by law. The above report was generated using voice recognition software. It may contain grammatical, syntax o r spelling errors. Electronically signed by: Viral Rivero M.D. 12/15/2024 10:21 AM
--- NOTE | 2024-12-15 10:36 | Critical Care Consultation ---
Date of Consultation December 15, 2024 Assessment & Plan (1) Pulmonary nodule: (2) History of tobacco use disorder: (3) Stage 4 very severe COPD by GOLD classification: (4) Chronic respiratory failure with hypoxia and hypercapnia: (5) COPD exacerbation: (6) Sleep apnea: (7) On home oxygen therapy: (8) Hemoptysis: (9) Anxiety and depression: (10) Hypertension: (11) Restless leg syndrome: Plan Reason Critically Ill: 63-year-old male presented to the hospital to have medication bronchoscopy done, was hypercapnic in the PACU needed for intubation. Sent to ICU for further management Past medical history: COPD, chronic hypercapnic respiratory failure on trilogy ventilator at home, active smoker Neuro - [facility] ICU: Unable to assess Propofol and fentanyl for sedation --Encephalopathy Likely secondary to hypercapnic respiratory failure Blood sugar, sodium, calcium within normal limit TSH 3.38 --Anxiety/depression On duloxetine at home Cardiac - -- Hypertension and dyslipidemia On rosuvastatin 20, Lasix 40 mg daily and metoprolol succinate 25 mg daily EKG 12/15/2024, 6:42 AM: Sinus bradycardia, no ST-T wave changes appreciated Respiratory - CT chest 11/23/2024 personally reviewed: Severe centrilobular and paraseptal emphysema appreciated bilaterally Right upper lobe 1 cm pulmonary nodule Linear atelectasis of the inferior lobe of the lingula Right lower lobe bullae No significant mediastinal lymphadenopathy -- VDRF Likely secondary to COPD exacerbation with hypercapnic respiratory failure Continue with ventilatory support Keep RASS -1 Daily sedation holidays and SBT's --Pulmonary nodules Right upper lobe Underwent navigational robotic bronchoscopy on 12/15/2024 Await final pathology --Hemoptysis Likely secondary to biopsy It is expected, continue to monitor --COPD with emphysema and chronic hypoxic hypercapnic respiratory failure Does have AVAPS machine at home On Advair 230 HFA along with Spiriva and Dupixent Also takes prednisone 7.5 mg on a daily basis As per the chart patient is on Roflumilast as well as ensifentrine. He cannot be on both. On azithromycin 250 mg Nlsjje-Tiebiynab-Clxqxe. GI - -- No acute issues RENAL/LYTES - -- No acute issues Monitor BUNs/creatinine Avoid nephrotoxic medication-- ENDO - -- ICU hyperglycemia protocol HEME - -- Monitor H&H ID - -- No clear source of infection Will give antibiotics for COPD exacerbation --Prophylaxis VTE: IPC for today, Lovenox starting tomorrow GI: Pantoprazole Lines: Peripheral Diet: N.p.o. Plan: Will get ABG in 30 minutes after the vent setting changes, add fentanyl due to sedation. Follow-up TSH Chest x-ray 12/15/2024 postprocedure personally reviewed, expiratory film, does not show any clear signs of pneumothorax, does show right lower lobe atelectasis Hemoptysis postprocedure is expected. Continue to monitor. 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 If the patient's blood pressure is trending down then we will have a low threshold to give hydrocortisone. Nebulized bronchodilators while in the hospital along with Solu-Medrol I have personally spent 54 minutes of critical care time in the direct management of this patient. This is a life/limb threatening event. This includes time spent evaluating patient, direct bedside care, chart review, placing orders, interpretation of diagnostic studies, discussion with consultants, patient, and family members, as well as other required patient management activities. This time is exclusive of all separately billable procedures, and teaching time and separate from and in addition to any other critical care service time. History of Present Illness Attending Physician: Apollo Metzger MD History of Present Illness 63-year-old male presented to the hospital to have medication bronchoscopy done, was hypercapnic in the PACU needed for intubation. Sent to ICU for further management Past medical history: COPD, chronic hypercapnic respiratory failure on trilogy ventilator at home, active smoker Brief signout was given by Dr. Metzger. History was obtained from the chart In the PACU patient was unresponsive, he was bradycardic and cyanotic. At the time of examination in the ICU Patient systolic blood pressure was in the 120s, he was moving all his extremities, fighting the when He was given 40 mg of propofol bolus. Heart rate was in the 60s. End-tidal was 48-50. I increase the tidal volume to 520 which is 6.7 mL/kg. Decrease the respiratory rate to 18 from 22 as patient was auto peeping. Plateau was 18 Allergies Allergy/AdvReac Type Severity Reaction Status Date / Time No Known Drug Allergies Allergy Unknown Verified 12/15/24 06:16 Home Medications Medication Instructions Recorded Confirmed Type metoprolol succinate 25 mg 25 mg PO QAM 30 days #30 tabs 08/05/19 12/15/24 Rx tablet,extended release 24 hr Non invasive ventilator DME #1 ea 11/04/19 10/22/24 Rx rosuvastatin 20 mg tablet 20 mg PO QAM 11/04/19 12/15/24 History furosemide 20 mg tablet 40 mg PO QAM 03/08/20 12/15/24 History bupropion HCl 300 mg 24 hr tablet, 300 mg PO QAM 08/02/20 12/15/24 History extended release tezepelumab-ekko 210 mg/1.91 mL 210 mg (1.91 mL) subcut .COMPLEX 09/20/21 12/15/24 Rx (110 mg/mL) subcutaneous syringe #1.91 mL (Tezspire) Portable Oxygen #1 ea 11/05/22 10/22/24 Rx duloxetine 60 mg capsule,delayed 60 mg PO QAM 10/26/23 12/15/24 History release ropinirole 3 mg tablet 3 mg PO HS 10/26/23 12/15/24 History prednisone 2.5 mg tablet 7.5 mg PO DAILY 09/03/24 12/15/24 History ipratropium 0.5 mg-albuterol 3 mg 3 ml inhalation Q6H PRN shortness 09/16/24 12/15/24 Rx (2.5 mg base)/3 mL nebulization of breath or wheezing #360 mL soln azithromycin 250 mg tablet 250 mg PO MOWEFR 30 days #12 tabs 09/21/24 12/15/24 Rx Daliresp 500 mcg tablet 500 mcg PO DAILY #30 tabs 10/21/24 12/15/24 Rx (roflumilast) tiotropium bromide 2.5 2 puff inhalation DAILY #4 grams 11/05/24 12/15/24 Rx mcg/actuation mist for inhalation (Spiriva Respimat) ensifentrine 3 mg/2.5 mL 3 mg (2.5 mL) inhalation BID #150 11/10/24 12/15/24 Rx suspension for nebulization mL (Ohtuvayre) albuterol sulfate 90 mcg/actuation 2 puff inhalation Q4H PRN COPD 12/08/24 12/15/24 History aerosol inhaler (Ventolin HFA) fluticasone propionate 230 2 puff inhalation BID 12/08/24 12/15/24 History mcg-salmeterol 21 mcg/actuation HFA inhaler (Advair HFA) Patient History Medical History Anxiety and depression Arthritis Chronic back pain Chronic respiratory failure with hypoxia and hypercapnia Diverticular disease Duodenal ulcer Per records GERD (gastroesophageal reflux disease) History of asthma History of COPD History of GI bleed Hx of congestive heart failure Hyperlipidemia Hypertension Myocardial Infarction 07/2019 On home oxygen therapy 2L NC continuous Pulmonary nodule Restless leg syndrome Sleep apnea "uses a ventilator device" with his continous oxygen Surgical History History of bowel resection R/t diverticulitis History of cardiac cath 2019- no stents History of colonoscopy (2017) History of esophagogastroduodenoscopy (EGD) History of herniorrhaphy x5 [place] teeth removed Family History Other Hypertension No family history of adverse response to anesthesia Social History Smoking Status: Former smoker Tobacco Type: Cigarettes Age Started Using Tobacco: 14; Age Quit Using Tobacco: 59; Cigarettes Per Day: 1-3ppd; Smoking End Date: 2018; Second Hand Exposure: No; Do You Dip or Chew Tobacco: No (quit years ago); Tobacco Cessation Education Requested by Patient: No Hx Alcohol Use: Yes (none since 2003) Hx Substance Use: Yes Preferred Language: Luxembourgish Communication Ability: Effective Communication Ability Comment: 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 [employer] Department Required: No Beliefs That Will Affect Care: None marital status: Current Living Situation: Spouse Current Living Situation Comment: [facility] Other Information That Helps Us Care for You: No Feels Safe at Home: Yes Safety Concerns: Feels Safe At This Time Assistive Devices: Glasses, Oxygen - Continuous and Other Assistive Devices Comment: "ventilator" for sleep apnea Review of Systems 2 Review of Systems: Unobtainable due to endotracheal tube Physical Exam 2 Physical Exam: Constitutional: No acute distress HEENT: PERRLA Respiratory system: Decreased air entry bilaterally, no wheeze, no rhonchi, mild crackles bilateral lower lobe CVS: S1-S2 positive, no murmurs or gallops Abdomen: Soft, nontender, nondistended, positive bowel sounds x4, obese Extremities: +2 pulses bilaterally radialis/ dorsalis pedis, no cyanosis, no edema Neuro: Sedated, was moving all extremities spontaneously Psych: Unable to assess G/U: No Rand Skin: no rashes, warm and dry Lymphatic: no cervical or axillary lymphadenopathy Results & Data Results & Data Vital Signs (Past 12 Hours) Vital Signs Temp Pulse Resp BP Pulse Ox O2 Del Method O2 Flow Rate 12/15/24 07:05 38 H Nasal Cannula 6 12/15/24 06:32 Nasal Cannula 6 12/15/24 06:24 36.4 C L 72 32 H 154/97 H 96 Nasal Cannula 6 Laboratory Results 12/15/24 06:21 12/15/24 06:21 Coding Level of Care Code 98878 CRITICAL CARE 1ST 30-74M Diagnoses Pulmonary nodule R91.1 History of tobacco use disorder Z87.891 Stage 4 very severe COPD by GOLD classification J44.9 Chronic respiratory failure with hypoxia and hypercapnia J96.11; J96.12 COPD exacerbation J44.1 Sleep apnea G47.30 On home oxygen therapy Z99.81 Hemoptysis R04.2 Anxiety and depression F41.9; F32.9 Hypertension I10 Restless leg syndrome G25.81
[2024-12-15] MEDS: BUDESONIDE 0.5 MG/2 ML VIAL (PULMICORT) NEB SCH (10:42)
[2024-12-15] MEDS: FORMOTEROL 20 MCG/2 ML VIAL NEB SCH (10:42)
[2024-12-15 11:21] LABS: Alanine Aminotransferase 13.0 U/L (7-52); Alkaline Phosphatase 75.0 U/L (34-104); Bilirubin,Total 0.4 mg/dl (0.2-1.0); Magnesium 2.3 mg/dl (1.7-2.4); Total Protein 6.6 gm/dl (6.0-8.3)
--- NOTE | 2024-12-15 11:24 | Procedure Note ---
Procedure Note Date of Service December 15, 2024 ARTERIAL LINE PROCEDURE NOTE: Procedure: Left Radial Arterial Line Placement Attending: Dr. Ltuher Peng APC: Pablo DIANE Indication: Frequent labs/ABG Anesthesia: Lidocaine 1% Consent not signed due to emergent circumstances. A time-out was completed verifying correct patient, procedure, site, positioning, and implant(s) or special equipment if applicable. Allens test was performed to ensure adequate perfusion. Patients left forearm was prepped and draped in the usual sterile fashion. Ultrasound guidance was used to aid needle placement. A 20g Arrow arterial line was introduced into the left radial artery artery. Catheter was threaded, and the needle was removed with appropriate blood return. Good waveform was observed. The patient tolerated the procedure well. Confirmation of placement with ultrasound. Images saved to medical record. Blood Loss: Minimal Complications: None Procedural Ultrasound Guidance: Procedure Date: 12/15/2024 Indication: Ultrasound guidance for arterial line placement. Attending: Dr. Luther Peng APC: BENEDICTO Harris Artery Identified: YES Line confirmed in Artery with ultrasound: Yes Complications: NONE Patient tolerated procedure: WELL [facility] Procedure Codes (Charges) Tubes, Drains, and Vasc Access Procedure 1: Tubes, Drains, and Vasc Access: [id number] Arterial Cath/Cannulation Sa mpling/Monitoring/Transfusion Procedure 2: Tubes, Drains, and Vasc Access: [id number] Ultrasound Guidance For Vascular Coding CPT Codes Tubes, Drains, and Vasc Access - Tubes, Drains, and Vasc Access: [id number] Arterial Cath/Cannulation Sampling/Monitoring/Transfusion ([id number]) Tubes, Drains, and Vasc Access - Tubes, Drains, and Vasc Access: [id number] Ultrasound Guidance For Vascular ([id number]) Additional Codes Date of Service ([facility].SURGERY)
[2024-12-15 11:25] LABS: iSTAT Art Bld Gas Base Excess 7.0 meg/L (-9-1.8); iSTAT Art Bld Gas pCO2 Correct 59 mmHg (35-46); iSTAT Art Bld Gas pH Corrected 7.349 (7.35-7.45); iSTAT Arterial Blood Gas pO2 C 56
[2024-12-15] MEDS ORDERED: PEPTAMEN INTENSE VHP 1.0 CAL 1,000 ML BAG OG SCH (11:30)
[2024-12-15 11:36] LABS: Thyroid Stimulating Hormone 3.382 uIu/ml (0.300-4.500)
--- NOTE | 2024-12-15 11:49 | Hospitalist Progress Note ---
Date of Service December 15, 2024 Assessment & Plan (1) Chronic respiratory failure with hypoxia and hypercapnia: (2) Stage 4 very severe COPD by GOLD classification: (3) CAD (coronary artery disease): Plan . 63-year-old male who failed extubation status post navigational bronchoscopy for right upper lobe lesion with PET activity. Is a significant history of Patient Gold category 4 COPD typically on home oxygen, current steroids and home Trelegy. History of NSTEMI and heart failure reduced ejection fraction previous history of duodenal ulcer with bowel resection and recurrent small bowel obstructions. Patient was reintubated in the PACU is in the intensive care unit on sedation and ventilation. #Chronic respiratory failure with hypoxia and hypercapnia. Concerns for possible hypercapnia in the postoperative period patient will be supported on ventilation with weaning trial the morning of 12/16. Patient will continue with his home medications including albuterol, budesonide, formoterol, he was given intravenous steroids. Course supplemental oxygen to prevent hypoxia he is followed by pulmonary critical care typically is on azithromycin 3 times a week #Coronary artery disease previous history of NSTEMI. Previous history of reduced ejection fraction. Typically home on Lasix 40 metoprolol succinate 25 rosuvastatin 20 EKG shows sinus bradycardia without acute ST or T wave changes #Depression typically on bupropion and duloxetine DVT prevention is SCDs with recent lung biopsy Admission and Anticipated Discharge Date Admission Date: December 15, 2024 Subjective 63 M who underwent navigational bronchoscopy 12/15/24, failed intubation with suspicion of hypercarbia, re intubated and taken to icu, pt is sedated with fentanyl and propofol. Bronchoscopy was for suspicious PUL nodule with PET scan activity. PT has copd and does typically have wheezy days according to , he was significantly wheezy in the pacu post initial intubation He is ventilated currently on AC and has good end tidal co2 reading Physical Exam Physical Exam: sedated ventilated good bilateral air movement on ventilator flutters eyes to voice cardiac is regular Results & Data Results & Data Vital Signs (Past 12 Hours) Vital Signs Temp Pulse Pulse Pulse Resp BP Pulse Ox 12/15/24 10:34 66 18 95 12/15/24 10:06 61 20 191/75 H 98 12/15/24 10:00 48 L 28 H 196/109 H 80 L 12/15/24 09:50 96.8 F L 65 24 181/128 H 98 12/15/24 07:05 38 H 12/15/24 06:32 12/15/24 06:24 97.5 F L 72 32 H 154/97 H 96 O2 Del Method O2 Flow Rate FiO2 12/15/24 10:34 30 12/15/24 10:06 Ambu-Bag 15 12/15/24 10:00 Non-rebreather 15 12/15/24 09:50 Oxymask 6 12/15/24 07:05 Nasal Cannula 6 12/15/24 06:32 Nasal Cannula 6 12/15/24 06:24 Nasal Cannula 6 PG Care Time/CCT Total # of Minutes Spent Total Time Spent with Patient: Total time spent is greater than 50% in coordination of care (as documented) at patient's floor/unit and/or counseling patient: Coding Level of Care Code 37891 SUB INP/OBS CARE 3/50MIN Diagnoses Chronic respiratory failure with hypoxia and hypercapnia J96.11; J96.12 Stage 4 very severe COPD by GOLD classification J44.9 CAD (coronary artery disease) I25.10
[2024-12-15] MEDS: fentaNYL citrate 2,500 MCG/250 ML BAG IV SCH (12:42)
[2024-12-15] MEDS: PROPOFOL IV EMULSION 10 MG/ML 100 ML VIAL IV ONE (12:45)
[2024-12-15] MEDS: PANTOprazole 40 MG/10 ML SYR IV SCH (12:48)
[2024-12-15] MEDS: DOXYCYCLINE HYCLATE 100 MG in DEXTROSE 5% MINI-B 100 ML IV SCH (13:28)
--- NOTE | 2024-12-15 13:38 | Communication Note ---
Date of Service: December 15, 2024 @ 1005 called to re- intubate pt who is s/p robotic nya. bronch w/ severe COPD/emphysema/bullous and hypercapneic ventilatory failure. It was discussed w/ pt that he may be reintubated for his severe COPD. Pt SPO2's down to mid 70's.W/O use of meds, pt. intubated w/ #4 glidescope, #8.5 ETT;VC's visualized, atraumatic intubation ,+ ETCO2;ETT taped @ 23 cm zoran. Prior to intubating this pt., this was discussed w/ Dr Metzger and he concurred.After ,this pt was transferred to ICU and attached to mechanical ventilator.
[2024-12-15] MEDS: PROPOFOL BOLUS FROM BAG IV PRN (13:41)
--- NOTE | 2024-12-15 13:46 | Anesthesia Procedure Note ---
Anesthesia Procedure Note Intubation Note Date of procedure: 12/15/24 Indication for intubation: Failure to ventilate and Failure to oxygenate Consent: Risk / Benefits Reviewed With: Emergency Monitors attached: Blood Pressure, CO2, EKG and Pulse Oximetry Time out completed: Yes Premedication: None Paralytic medication: None Intubation technique: Adequate preoxygenation Equipment: Glidescope (# 4) View: Grade 1 Endotracheal tube: Oral and Other (8.5) Attempts: 1 and Atraumatic Tube placement confirmation: auscultation and Positive CO2 detection Procedure Summary: @ 1005, after D/W Dr Metzger ,it was agreed to reintubate pt in PACU for postop ventilatory and respiratory failure.Using glidescope #4,VC's visualized,atraumatic intubation w/ 8.5ETT;+ ETCO2;+ B/L BS;ETT taped @ 23 cm zoran. CXR ordered by Dr Metzger. Post-procedure: Pt hemodynamically stable, Pt tolerates well, No complication and Post placement CXR ordered
--- NOTE | 2024-12-15 13:52 | Anesthesiology Progress Note ---
Date of Service December 15, 2024 Anesthesia Post Procedure Vital Signs Vital Signs: Temp Pulse Pulse Pulse Resp BP BP 12/15/24 13:34 12/15/24 12:18 110/72 12/15/24 12:15 36.2 C L 58 L 18 12/15/24 12:09 36.2 C L 58 L 18 12/15/24 12:01 96/64 L 12/15/24 11:57 36.1 C L 60 18 12/15/24 11:56 100/67 12/15/24 11:56 100/67 12/15/24 11:56 100/67 12/15/24 11:51 99/67 L 12/15/24 11:51 99/67 L 12/15/24 11:48 36.1 C L 56 L 18 12/15/24 11:40 98/70 L 12/15/24 11:40 98/70 L 12/15/24 11:40 98/70 L 12/15/24 11:39 36.0 C L 60 18 12/15/24 11:36 36.0 C L 61 18 12/15/24 11:31 108/66 12/15/24 11:25 98/73 L 12/15/24 11:25 98/73 L 12/15/24 11:25 98/73 L 12/15/24 11:09 35.8 C L 63 18 12/15/24 11:06 35.7 C L 64 18 12/15/24 11:06 117/70 12/15/24 11:06 117/70 12/15/24 11:03 111/72 12/15/24 11:03 35.7 C L 66 18 12/15/24 11:01 118/85 12/15/24 11:00 35.6 C L 63 18 12/15/24 10:56 111/84 12/15/24 10:56 111/84 12/15/24 10:46 114/80 12/15/24 10:46 114/80 12/15/24 10:40 108/79 12/15/24 10:36 34.3 C L 68 18 12/15/24 10:36 103/81 12/15/24 10:36 103/81 12/15/24 10:34 66 18 12/15/24 10:30 115/88 12/15/24 10:30 115/88 12/15/24 10:30 68 18 12/15/24 10:24 67 19 12/15/24 10:24 117/74 12/15/24 10:24 117/74 12/15/24 10:15 61 20 123/66 12/15/24 10:06 61 20 191/75 H 12/15/24 10:00 48 L 28 H 196/109 H 12/15/24 09:50 36 C L 65 24 181/128 H 12/15/24 07:05 38 H 12/15/24 06:32 12/15/24 06:24 36.4 C L 72 32 H 154/97 H Pulse Ox O2 Del Method O2 Flow Rate FiO2 12/15/24 13:34 Mechanical Vent 12/15/24 12:18 12/15/24 12:15 86 L 12/15/24 12:09 96 12/15/24 12:01 12/15/24 11:57 95 12/15/24 11:56 12/15/24 11:56 12/15/24 11:56 12/15/24 11:51 12/15/24 11:51 12/15/24 11:48 95 12/15/24 11:40 12/15/24 11:40 12/15/24 11:40 12/15/24 11:39 94 12/15/24 11:36 95 12/15/24 11:31 12/15/24 11:25 12/15/24 11:25 12/15/24 11:25 12/15/24 11:09 89 L 12/15/24 11:06 90 12/15/24 11:06 12/15/24 11:06 12/15/24 11:03 12/15/24 11:03 92 12/15/24 11:01 12/15/24 11:00 12/15/24 10:56 12/15/24 10:56 12/15/24 10:46 12/15/24 10:46 12/15/24 10:40 12/15/24 10:36 96 12/15/24 10:36 12/15/24 10:36 12/15/24 10:34 95 30 12/15/24 10:30 12/15/24 10:30 12/15/24 10:30 90 12/15/24 10:24 100 12/15/24 10:24 12/15/24 10:24 12/15/24 10:15 100 12/15/24 10:06 98 Ambu-Bag 15 12/15/24 10:00 80 L Non-rebreather 15 12/15/24 09:50 98 Oxymask 6 12/15/24 07:05 Nasal Cannula 6 12/15/24 06:32 Nasal Cannula 6 12/15/24 06:24 96 Nasal Cannula 6 Transfer of Care Handoff Completed per policy Notes Mental Status: see notes below Patient Amnestic to Procedure: Yes Nausea / Vomiting: adequately controlled Pain: adequately controlled Airway Patency, RR, SpO2: see Notes below BP & HR: see Notes below Hydration State: stable & adequate Anesthetic Complications: see Notes below Notes: Pt required reintubation for postop ventilatory and respiratory failure and mechanical ventilation in ICU.
[2024-12-15] MEDS: TUBE FEEDING WATER FLUSH OG SCH (14:18)
[2024-12-15] MEDS ORDERED: SODIUM CHLORIDE 0.9% 1,000 ML IV SCH (14:30)
--- NOTE | 2024-12-15 15:55 | XRay Report ---
SINGLE VIEW CHEST CLINICAL HISTORY: Respiratory failure. Intubation. FINDINGS: 2 AP, portable, upright chest radiographs are compared to study dated 12/15/2024 and correla roger with chest CT dated 11/23/2024. The examination is degraded by portable technique and patient rotat ion. An endotracheal tube has been placed. The tip projects approximately 7 cm above the holly. The heart is enlarged. There is pulmonary vascular congestion. Advanced emphysema and chronic interstitia l thickening is similar to previous. There is bibasilar airspace consolidation. No large pleural effu richard or Pneumothorax is seen. The skeletal structures are osteopenic. The bony thorax is grossly inta ct. IMPRESSION: 1. An endotracheal tube has been placed as above. 2. Cardiomegaly and emphysema with mild pulmonary vascular congestion. 3. Bibasilar consolidation is unchanged and could represent atelectasis and/or pneumonia. Clinical co rrelation will be required and radiographic follow-up to resolution is recommended. ACT 112: Negative or not required by law. Electronically signed by: Armando Medina M.D. 12/15/2024 3:54 PM
[2024-12-15 18:54] LABS: iSTAT Art Bld Gas Base Excess 7.0 meg/L (-9-1.8); iSTAT Art Bld Gas pCO2 Correct 47 mmHg (35-46); iSTAT Art Bld Gas pH Corrected 7.427 (7.35-7.45); iSTAT Arterial Blood Gas pO2 C 75
[2024-12-15] MEDS: D5W AND 1/2NSS 1,000 ML IV SCH (23:17)
[2024-12-15] MEDS: ALBUT/IPRATROP 3MG/0.5MG NEB 3 ML VIAL NEB PRN (23:19)
[2024-12-16 04:49] LABS: Hematocrit (blood only) 39.9 % (42.0-52.0); Hemoglobin 12.8 g/dl (14.0-18.0); Immature Granulocytes # (auto) 0.03 K/uL (0.01-0.20); Immature Granulocytes % (auto) 0.3 %; Mean Corpuscular Hemoglobin 28.5 pg (25.0-34.0); Mean Corpuscular Volume 88.9 fL (80.0-100.0); Platelet Count 189 K/uL (130-400); RDW Standard Deviation 43.4 fL (36.4-46.3); Red Blood Count 4.49 M/uL (4.70-6.10); White Blood Count 9.07 K/ul (4.8-10.8)
[2024-12-16 04:49] LABS: iSTAT Art Bld Gas Base Excess 5.0 meg/L (-9-1.8); iSTAT Art Bld Gas pCO2 Correct 46 mmHg (35-46); iSTAT Art Bld Gas pH Corrected 7.408 (7.35-7.45); iSTAT Arterial Blood Gas pO2 C 58
[2024-12-16 05:10] LABS: Anion Gap 7.0 (3-11); Blood Urea Nitrogen 18.0 mg/dl (6-23); Calcium 8.7 mg/dl (8.6-10.3); Carbon Dioxide 29.0 mmol/L (21-32); Chloride 103.0 mmol/L (98-107); Creatinine Clr Calc Pharmacy 125.3 ml/min; Glucose 152.0 mg/dl (70-99(Fasting)); Magnesium 2.1 mg/dl (1.7-2.4); Potassium 4.2 mmol/L (3.5-5.1); Sodium 139.0 mmol/L (136-145)
[2024-12-16] MEDS: ALBUT/IPRATROP 3MG/0.5MG NEB 3 ML VIAL NEB STA (05:43)
--- NOTE | 2024-12-16 05:54 | Electrocardiogram Report ---
Test Reason : Blood Pressure : */* mmHG Vent. Rate : 56 BPM Atrial Rate : 56 BPM P-R Int : 142 ms QRS Dur : 88 ms QT Int : 428 ms P-R-T Axes : 22 77 96 degrees QTcB Int : 413 ms Poor data quality, interpretation may be adversely affected Sinus bradycardia Septal infarct (cited on or before 26-Oct-2023) Incomplete right bundle branch block Nonspecific T wave abnormality Abnormal ECG When compared with ECG of 26-Oct-2023 16:03, Questionable change in initial forces of Anteroseptal leads T wave inversion no longer evident in Anterior leads Confirmed by Tulio Begum ([id number]) on 12/16/2024 5:53:40 AM Referred By: Apollo Metzger Confirmed By: Tulio Begum
[2024-12-16] MEDS: MIDAZOLAM HCL 1 MG/ML 2ML VIAL IV STA (06:25)
[2024-12-16] MEDS: MIDAZOLAM HCL 1 MG/ML 2ML VIAL ONE (06:35)
--- NOTE | 2024-12-16 07:11 | XRay Report ---
EXAM: XR chest 1V portable CLINICAL HISTORY: Wheezing, respiratory distress. TECHNIQUE: An X-ray image of the chest is obtained in AP projection. COMPARISON: 03-30-2025 chest x ray. FINDINGS: Lines and tibes: Newly applied endotracheal tube 5.9 cm above the holly. Pulmonary Parenchyma: Newly seen minimal blunting of both costophrenic angles, more on the right side, likely minimal pleural effusion /thickening. No pulmonary nodules are identified. Heart and Mediastinum: Heart size and shape are normal. No mediastinal widening or masses. No hilar or mediastinal lymphadenopathy. Bony Thorax: Bony thorax appears intact without fractures or deformities. Soft Tissues: Soft tissues overlying the chest wall are unremarkable. IMPRESSION: 1. Newly applied endotracheal tube 5.9 cm above the holly. 2. Newly seen minimal blunting of both costophrenic angles, more on the right side, likely minimal pleural effusion /thickening. Electronically signed by Luca Fortune 12-16-2024 07:09 AM
--- NOTE | 2024-12-16 07:14 | Hospitalist Progress Note ---
Date of Service December 16, 2024 Assessment & Plan (1) Chronic respiratory failure with hypoxia and hypercapnia: (2) Stage 4 very severe COPD by GOLD classification: (3) CAD (coronary artery disease): Plan . 63-year-old male who failed extubation status post navigational bronchoscopy for right upper lobe lesion with PET activity. Is a significant history of Patient Gold category 4 COPD typically on home oxygen, current steroids and home Trelegy. History of NSTEMI and heart failure reduced ejection fraction previous history of duodenal ulcer with bowel resection and recurrent small bowel obstructions. Patient was reintubated in the PACU is in the intensive care unit on sedation and ventilation. #Chronic respiratory failure with hypoxia and hypercapnia. Concerns for possible hypercapnia in the postoperative period patient will be supported on ventilation with weaning trial the morning of 12/16. Patient will continue with his home medications including albuterol, budesonide, formoterol, he was given intravenous steroids. Course supplemental oxygen to prevent hypoxia he is followed by pulmonary critical care typically is on azithromycin 3 times a week #Coronary artery disease previous history of NSTEMI. Previous history of reduced ejection fraction. Typically home on Lasix 40 metoprolol succinate 25 rosuvastatin 20 EKG shows sinus bradycardia without acute ST or T wave changes #Depression typically on bupropion and duloxetine DVT prevention is SCDs with recent lung biopsy Admission and Anticipated Discharge Date Admission Date: December 15, 2024 Results & Data Results & Data Vital Signs (Past 12 Hours) Vital Signs Temp Pulse Resp BP Pulse Ox O2 Del Method FiO2 12/16/24 06:30 98.2 F 104 H 17 91 Mechanical Vent 12/16/24 06:00 98.4 F 105 H 20 90 Mechanical Vent 30 12/16/24 06:00 100/81 12/16/24 06:00 100/81 12/16/24 05:00 97.5 F L 74 24 86 L Mechanical Vent 30 12/16/24 04:51 60 19 92 12/16/24 04:00 97.5 F L 60 16 101/71 92 Mechanical Vent 30 12/16/24 04:00 30 12/16/24 03:00 97.9 F 65 16 103/73 91 Mechanical Vent 30 12/16/24 03:00 97.5 F L 59 L 16 102/73 92 Mechanical Vent 30 12/16/24 02:00 98.1 F 63 17 113/58 L 92 Mechanical Vent 30 12/16/24 01:00 97.7 F 66 16 124/64 93 Mechanical Vent 30 12/16/24 00:00 98.8 F 75 20 119/62 91 Mechanical Vent 30 12/16/24 00:00 30 12/15/24 23:58 66 12/15/24 23:39 59 L 23 97 30 12/15/24 22:30 63 18 96/64 L 93 Mechanical Vent 30 12/15/24 22:00 99.3 F 64 16 92/69 L 93 Mechanical Vent 30 12/15/24 21:01 99.0 F 66 17 108/77 93 Mechanical Vent 30 12/15/24 20:31 99.0 F 66 19 104/74 93 Mechanical Vent 30 12/15/24 20:30 Mechanical Vent 30 12/15/24 20:13 64 22 94 30 12/15/24 20:00 99.1 F 65 20 112/61 91 Mechanical Vent 30 12/15/24 19:29 30 12/15/24 19:27 98.8 F 58 L 18 101/56 L 93 Mechanical Vent 30 PG Care Time/CCT Total # of Minutes Spent Total Time Spent with Patient: Total time spent is greater than 50% in coordination of care (as documented) at patient's floor/unit and/or counseling patient: Coding Diagnoses Chronic respiratory failure with hypoxia and hypercapnia J96.11; J96.12 Stage 4 very severe COPD by GOLD classification J44.9 CAD (coronary artery disease) I25.10
--- NOTE | 2024-12-16 07:27 | Critical Care Progress Note ---
Date of Service December 16, 2024 Assessment & Plan (1) Pulmonary nodule: (2) History of tobacco use disorder: (3) Stage 4 very severe COPD by GOLD classification: (4) Chronic respiratory failure with hypoxia and hypercapnia: (5) COPD exacerbation: (6) Sleep apnea: (7) On home oxygen therapy: (8) Hemoptysis: (9) Anxiety and depression: (10) Hypertension: (11) Restless leg syndrome: Plan Reason Critically Ill: 63-year-old male presented to the hospital to have medication bronchoscopy done, was hypercapnic in the PACU needed for intubation. Sent to ICU for further management Past medical history: COPD, chronic hypercapnic respiratory failure on trilogy ventilator at home, active smoker Neuro - [facility]: Unable to assess Propofol and fentanyl for sedation --Encephalopathy Likely secondary to hypercapnic respiratory failure Blood sugar, sodium, calcium within normal limit TSH 3.38 --Anxiety/depression On duloxetine at home Cardiac - -- Hypertension and dyslipidemia On rosuvastatin 20, Lasix 40 mg daily and metoprolol succinate 25 mg daily EKG 12/15/2024, 6:42 AM: Sinus bradycardia, no ST-T wave changes appreciated Respiratory - CT chest 11/23/2024 personally reviewed: Severe centrilobular and paraseptal emphysema appreciated bilaterally Right upper lobe 1 cm pulmonary nodule Linear atelectasis of the inferior lobe of the lingula Right lower lobe bullae No significant mediastinal lymphadenopathy -- VDRF Likely secondary to COPD exacerbation with hypercapnic respiratory failure Continue with ventilatory support Keep RASS -1 Daily sedation holidays and SBT's --Pulmonary nodules Right upper lobe Underwent navigational robotic bronchoscopy on 12/15/2024 Await final pathology --Hemoptysis Likely secondary to biopsy It is expected, continue to monitor --COPD with emphysema and chronic hypoxic hypercapnic respiratory failure Does have AVAPS machine at home On Advair 230 HFA along with Spiriva and Dupixent Also takes prednisone 7.5 mg on a daily basis As per the chart patient is on Roflumilast as well as ensifentrine. He cannot be on both. On azithromycin 250 mg Qhwswj-Qrpbfrziu-Ezoaut. GI - -- No acute issues RENAL/LYTES - -- No acute issues Monitor BUNs/creatinine Avoid nephrotoxic medication ENDO - -- ICU hyperglycemia protocol HEME - -- Monitor H&H ID - -- No clear source of infection Will give antibiotics for COPD exacerbation --Prophylaxis VTE: Heparin subcu GI: Pantoprazole Lines: Peripheral Diet: N.p.o. Plan: In/out: +113, urine output 510 mL AB.40/48/61 on 30% FiO2 Chest x-ray from today does not show any signs of pneumothorax. The near atelectasis of the right lower lobe with hyperinflated lungs Phosphorus being replaced H&H although low from his baseline of 14 it seems to be stable since yesterday 11 AM Will resume heparin subcutaneous today Continue with nebulized bronchodilators while in the hospital Continue with Solu-Medrol Doxycycline for 5 days for COPD exacerbation, can go back to azithromycin Hwdoiv-Ukkywzafl-Drnirj following this SBT with trial of extubation to BiPAP Patient does seem to have anxiety issues. Will consider Precedex if need be I have personally spent 38 minutes of critical care time in the direct management of this patient. This is a life/limb threatening event. This includes time spent evaluating patient, direct bedside care, chart review, placing orders, interpretation of diagnostic studies, discussion with consultants, patient, and family members, as well as other required patient management activities. This time is exclusive of all separately billable procedures, and teaching time and separate from and in addition to any other critical care service time. Admission and Anticipated Discharge Date Admission Date: December 15, 2024 Subjective Patient seen and examined at bedside. No acute distress Early in the morning patient got restless and he had to be bumped up on 40 of propofol and 75 fentanyl When I saw the patient he was on 20 of propofol and 25 fentanyl He was answering all the questions appropriately. Denied any chest pain, no abdominal pain, no nausea or vomiting Denies any headache. He was saturating 96%. I put him on pressure support and he was getting good tidal volumes with 8/5 pressure support Review of Systems 2 Review of Systems: All systems reviewed & are unremarkable except as noted in Subjective and Unobtainable due to endotracheal tube Physical Exam 2 Physical Exam: Constitutional: No acute distress HEENT: PERRLA Respiratory system: Decreased air entry bilaterally, positive expiratory wheeze bilaterally, no rhonchi, mild crackles bilateral lower lobe CVS: S1-S2 positive, no murmurs or gallops Abdomen: Soft, nontender, nondistended, positive bowel sounds x4, obese Extremities: +2 pulses bilaterally radialis/ dorsalis pedis, no cyanosis, minimal pitting edema bilateral lower extremity Neuro: Awake alert oriented Psych: Normal mood and affect G/U: No Rand Skin: no rashes, warm and dry Lymphatic: no cervical or axillary lymphadenopathy Results & Data Results & Data Vital Signs (Past 12 Hours) Vital Signs Temp Pulse Resp BP Pulse Ox O2 Del Method FiO2 12/16/24 07:00 36.5 C 12/16/24 06:30 36.8 C 104 H 17 91 Mechanical Vent 12/16/24 06:00 36.9 C 105 H 20 90 Mechanical Vent 12/16/24 06:00 100/81 12/16/24 06:00 100/81 12/16/24 05:00 36.4 C L 74 24 86 L Mechanical Vent 12/16/24 04:51 60 19 92 12/16/24 04:00 36.4 C L 60 16 101/71 92 Mechanical Vent 12/16/24 04:00 12/16/24 03:00 36.6 C 65 16 103/73 91 Mechanical Vent 12/16/24 03:00 36.4 C L 59 L 16 102/73 92 Mechanical Vent 12/16/24 02:00 36.7 C 63 17 113/58 L 92 Mechanical Vent 12/16/24 01:00 36.5 C 66 16 124/64 93 Mechanical Vent 12/16/24 00:00 37.1 C 75 20 119/62 91 Mechanical Vent 12/16/24 00:00 30 12/15/24 23:58 66 12/15/24 23:39 59 L 23 97 12/15/24 22:30 63 18 96/64 L 93 Mechanical Vent 12/15/24 22:00 37.4 C 64 16 92/69 L 93 Mechanical Vent 12/15/24 21:01 37.2 C 66 17 108/77 93 Mechanical Vent 12/15/24 20:31 37.2 C 66 19 104/74 93 Mechanical Vent 12/15/24 20:30 Mechanical Vent 12/15/24 20:13 64 22 94 12/15/24 20:00 37.3 C 65 20 112/61 91 Mechanical Vent 12/15/24 19:29 12/15/24 19:27 37.1 C 58 L 18 101/56 L 93 Mechanical Vent 30 Laboratory Results 12/16/24 04:32 12/16/24 04:32 Coding Level of Care Code 91386 CRITICAL CARE 1ST 30-74M Diagnoses Pulmonary nodule R91.1 History of tobacco use disorder Z87.891 Stage 4 very severe COPD by GOLD classification J44.9 Chronic respiratory failure with hypoxia and hypercapnia J96.11; J96.12 COPD exacerbation J44.1 Sleep apnea G47.30 On home oxygen therapy Z99.81 Hemoptysis R04.2 Anxiety and depression F41.9; F32.9 Hypertension I10 Restless leg syndrome G25.81
[2024-12-16] MEDS ORDERED: SODIUM PHOSPHATE 3 MMOL/1 ML INFUSION IV STA (07:31)
[2024-12-16] MEDS: SODIUM PHOSPHATE 15 MMOL in SODIUM CHLORIDE 0.9% 250 ML IV ONE (08:00)
[2024-12-16 13:09] VITALS: TEMP 98.6
[2024-12-16 15:58] VITALS: BP 130/74; PULSE 76; RESP 18; O2SAT 92
--- NOTE | 2024-12-16 18:08 | Discharge Summary ---
Discharge Summary Date of Service December 16, 2024 Principal Dx & Hospital Course #1 = Principal Diagnosis (1) Chronic respiratory failure with hypoxia and hypercapnia: (2) Stage 4 very severe COPD by GOLD classification: (3) CAD (coronary artery disease): Plan . 63-year-old male who failed extubation status post navigational bronchoscopy for right upper lobe lesion with PET activity. Is a significant history of Gold category 4 COPD typically on home oxygen, current daily steroids and home Trelegy. History of NSTEMI and heart failure reduced ejection fraction previous history of duodenal ulcer with bowel resection and recurrent small bowel obstructions. Patient was extubated on 12/16 and pulmonary medicine feels patient is able to go home and is severe respiratory state although this is chronic and stable for him #Chronic respiratory failure with hypoxia and hypercapnia. Concerns for possible hypercapnia in the postoperative period patient will be supported on ventilation with successful weaning trial the morning of 12/16 patient was subsequently extubated and watched throughout the day. Patient will continue with his home medications including albuterol, budesonide, formoterol, he was given intravenous steroids and will be discharged on a bolus of steroids to return to his usual dose after 5 days per. Continues on supplemental oxygen #Coronary artery disease previous history of NSTEMI. Previous history of reduced ejection fraction. Typically home on Lasix 40 metoprolol succinate 25 rosuvastatin 20 EKG shows sinus bradycardia without acute ST or T wave changes #Depression typically on bupropion and duloxetine Despite the patient having fairly significant COPD he elected to be discharged home to follow-up with Dr. Metzger as an outpatient Notes For Next Care Provider Patient may need an expanded steroid taper he is only been given 4 additional days of steroids for home and then to resume his usual dose of 7.5 Patient was not instituted on any antibiotic therapy at time of discharge Admission HPI Per Admitting Provider Patient is a 63-year-old male with a history of hypoxemic hypercarbic respiratory failure due to COPD and obesity who was found to have a pulmonary nodule on lung cancer screening. This nodule unfortunately demonstrated significant PET avidity. Follow-up CT scan failed to demonstrate resolution of the nodule. Options were discussed with the patient to include surveillance versus biopsy. After careful consideration and discussion of risks and benefits including bleeding, respiratory failure, pneumothorax, the patient has elected to undergo robotic navigational bronchoscopy with endobronchial biopsy. Today the patient reports that he is having increasing shortness of breath and wheezing. He states this is pretty typical for him on the mornings. He has a hard time getting going. He is wheezing. He has not been coughing or expectorating phlegm. No fevers chills or night sweats. Discharge Exam Patient using accessory muscles of breathing states this is 100% his normal day. He actually is fairly good air movement some minor rhonchi at the bases and cardiac exam is regular Discharge Plan Discharge Items Patient Disposition: Home - Self-Care Reason For Visit: RIGHT LUNG NODULE BIOPSY Discharge Diagnosis: acute on chronic respiratory failure mechanical ventilation severe copd Pulmonary nodule s/p biopsy Activity: Resume your previous activity Non-emergency contact: Primary Care Provider and Milk Delivery Driver Call non-emergency contact if: your symptoms worsen Follow-up/Referrals: Izabela Gonzalez DO [Primary Care Provider] - Diet: Regular Addtl Attending Provider Instructions: 1. May experience low-grade fevers up to 100.5 in the next 24 hours. Tylenol 500 mg every 4 hours orally can be used to manage the symptom. 2. May experience cough with some blood-tinged phlegm. This should decrease over the next 12 to 24 hours. Return to the emergency room if coughing up mouthfuls of blood. 3. Return to the emergency room for increasing chest pain, fevers greater than 101.5, or shortness of breath. 4. Dr. Metzger will contact you once pathology results are available, typically within 72 hours Addtl Polishing Machine Tender Provider Instructions: please take a higher dose of steroids for the next 4 days then return to your usual dose Pending Studies at Discharge: Yes Studies:: Lung nodule biopsy Stand-Alone Forms: [facility] Medications and DC Order Prescriptions: New prednisone 10 mg tablet 40 mg PO DAILY Qty: 16 0RF Continued (DME) Portable Oxygen Misc See Rx Instructions .Route Qty: 1 0RF Rx Instructions: Portable oxygen concentrator 2L/min via NC with exertion LON99 ipratropium-albuterol 0.5 mg-3 mg(2.5 mg base)/3 mL solution for nebulization 3 ml INHALATION Q6H PRN (Reason: shortness of breath or wheezing) Qty: 360 3RF azithromycin 250 mg tablet 250 mg PO MOWEFR 30 Days Qty: 12 6RF roflumilast [Daliresp] 500 mcg tablet 500 mcg PO DAILY Qty: 30 2RF Rx Instructions: Roflumilast makes patient have more SOB and chest tightness Spiriva Respimat 2.5 mcg/actuation mist 2 puff inhalation DAILY Qty: 4 3RF furosemide 20 mg tablet 40 mg PO QAM rosuvastatin 20 mg tablet 20 mg PO QAM (DME) Non invasive ventilator DME Misc See Rx Instructions .ROUTE .MEDSUPPLY Qty: 1 0RF Rx Instructions: NON INVASIVE VENTILATOR. CARE PLUS O2 TO ASSESS PATIENT. Tezspire 210 mg/1.91 mL (110 mg/mL) syringe 210 mg subcut .COMPLEX Qty: 1.91 11RF Patient Comments: once monthly Rx Instructions: Inject 210 mg subcut EVERY 4 WEEKS APPROVED thru pharmacy benefit GOOD 05/12/21-04/21/22 PA# [id number] Samples for now. Funding is closed Ohtuvayre 3 mg/2.5 mL suspension for nebulization 3 mg inhalation BID Qty: 150 11RF Patient Comments: does not have this medication yet, 12/08/24 metoprolol succinate 25 mg Tablet Extended Release 24 Hr 25 mg PO QAM 30 Days Qty: 30 5RF bupropion HCl 300 mg Tablet Extended Release 24 Hr 300 mg PO QAM duloxetine 60 mg capsule,delayed release(DR/EC) 60 mg PO QAM ropinirole 3 mg tablet 3 mg PO HS albuterol sulfate [Ventolin HFA] 90 mcg/actuation HFA aerosol inhaler 2 puff INHALATION Q4H PRN (Reason: COPD) Rx Instructions: 3 MONTH SUPPLY -Needs to be Ventolin Brand only for insurance fluticasone propion-salmeterol [Advair HFA] 230-21 mcg/actuation HFA aerosol inhaler 2 puff INHALATION BID Rx Instructions: (3) MONTH SUPPLY Held prednisone 2.5 mg tablet 7.5 mg PO DAILY Hold Instructions: Resume on 12/21/24. Discharge Orders: Discharge Order (Routine); Ordered 12/16/24 Ordered By: Urbano Mcgrath/Other Patient Handouts: COPD Using Inhalers, COPD Controlled Breathing Dc Admission Data Admit Date/Time: 12/15/24 10:15 Attending Provider: Urbano Hernandez Admit Provider: Apollo Metzger Primary Care Provider: Izabela Gonzalez Other Providers: Apollo Metzger Other Interventions: Discharge Summary Assessment (RN) Last Done: 12/16/24 14:57 Hospital Stay Data Consultations 12/15/24 10:15 Consult Host Coordinator Routine Procedures Performed Operation Date: 12/15/24 07:30 Actual Procedures p Robotic assisted Navigational Bronchoscopy,(Not Applicable) - Apollo Metzger MD s Endobronchial Ultrasound, transbronchial needle aspiration, transbronchial biopsy with fluroscopy, endobronchial brushing,(Not Applicable) - Apollo Metzger MD Diagnostic Imagining Performed 12/15/24 07:30 FL bronchoscopy Routine Pending Results Patient Have Any Pending Studies at Discharge: Yes Discharge Instructions Given to Patient (Per Discharging Provider) 1. May experience low-grade fevers up to 100.5 in the next 24 hours. Tylenol 500 mg every 4 hours orally can be used to manage the symptom. 2. May experience cough with some blood-tinged phlegm. This should decrease over the next 12 to 24 hours. Return to the emergency room if coughing up mouthfuls of blood. 3. Return to the emergency room for increasing chest pain, fevers greater than 101.5, or shortness of breath. 4. Dr. Metzger will contact you once pathology results are available, typically within 72 hours Total Time Total Time Spent Total Time Spent (In Minutes): It required greater than 30 minutes to prepare this patient for discharge. Coding Level of Care Code 80809 INP/OBS DISCH >30 MIN Diagnoses Chronic respiratory failure with hypoxia and hypercapnia J96.11; J96.12 Stage 4 very severe COPD by GOLD classification J44.9 CAD (coronary artery disease) I25.10
[2024-12-16] MEDS ORDERED: HEPARIN SOD 5,000 UNIT/0.5 ML VIAL SQ SCH (21:00)
--- NOTE | 2024-12-17 13:41 | Coding Query ---
CODING QUERY To promote full compliance with coding requirements relating to patient care, provider participation is requested in all cases of window dresser uncertainty. Please assist us with the question(s) below: Coding Question(s): Thee is Documentation through the record of Medical History of Chronic Respiratory Failure with hypoxia and hypercapnia, and the 12/15 Critical Care Consultation begins documentation that is also on Critical Care Progress Note of, "Encephalopathy Likely secondary to hypercapnic respiratory failure", and, "-- VDRF Likely secondary to COPD exacerbation with hypercapnic respiratory failure Continue with ventilatory support Keep RASS -1 Daily sedation holidays and SBT's", and, "63-year-old male presented to the hospital to have medication bronchoscopy done, was hypercapnic in the PACU needed for intubation. Sent to ICU for further management", and then the Discharge Summary documents, "#Chronic respiratory failure with hypoxia and hypercapnia. Concerns for possible hypercapnia in the postoperative period patient will be supported on ventilation with successful weaning trial the morning of 12/16 patient was subsequently extubated and watched throughout the day", and, "Discharge Diagnosis: acute on chronic respiratory failure mechanical ventilation". Please specify below, in your clinical opinion, regarding the Concerns for possible hypercapnia in the postoperative period that was supported on ventilation with successful weaning trial on the morning of 12/16, and documentation of VDRF on the Critical Care Consult and Progress Note. ( ) VDRF is hypercapnic respiratory failure (on chronic hypercapnic and chronic hypoxic respirataory failure) likely secondary to COPD Exacerbation and is Not a Postoperative Complication. Please Specify further regarding the acuity of the VDRF in the postoperative period. ( ) Acute Ventilator-dependent Respiratory Failure ( ) hypercapnic ( ) other - please specify ( X ) VDRF is hypercapnic respiratory failure (on chronic hypercapnic and chronic hypoxic respirataory failure) likely secondary to COPD Exacerbation and IS a Postoperative Complication. Please Specify further regarding the acuity of the VDRF in the postoperative period. ( X ) Acute Ventilator-dependent Respiratory Failure ( X ) hypercapnic ( ) other - please specify ( ) VDRF is Other - Please specify and please specify if a postoperative complication or not a complication Physician's Response(s): Thank you Ivania Altman Principal Diagnosis: "that condition established after study, to be chiefly responsible for occasioning the admission of the patient to the hospital for care." Co-Existing Principal Diagnosis: "when two or more diagnoses equally meet the criteria for principal diagnosis as determined by the circumstances of admission, diagnostic work up, and/or therapy provided, and the Alphabetic Index, Tabular List, or another coding guideline does not provide sequencing direction, any one of the diagnoses may be sequenced first." "When the physician has documented what appears to be a current diagnosis in the body of the record, but has not included the diagnosis in the final diagnostic statement, the physician should be asked whether the diagnosis should be added." (Source Coding [facility] 2 QTR90. p3-4) [facility]
== END 2024-12-16 16:25 | disposition home or self-care (01) | DRG 166 ==
LOC: ASU 06:11 → 1E 10:15